=== PATIENT | female | born 1960 | race African-American/Black ===

== ENCOUNTER 2016-07-19 13:00 | Day surgery (SDC) | payer OTHER ==
[~2016-07-19] VITALS: Ht 175.3 cm; Wt 97.4 kg
[~2016-07-19 13:00] MED LIST: ASPI-676 PO; CARV3.1260 PO; FURO40TA4 PO; LISI2.5T59 PO; LORA-441 PO; ONDA4TAB8 PO; POLY17PO6 PO; SPIR25TA PO
[2016-07-19] MEDS ORDERED: IBUPROFEN (13:33)
[2016-07-19 13:35] VITALS: Ht 175.3 cm; Wt 97.4 kg
[2016-07-19 13:41] VITALS: BP 109/59; PULSE 70; RESP 19
[2016-07-19] MEDS ORDERED: PROPOFOL 20 ML ONE (15:00)
--- NOTE | 2016-07-19 16:09 | GILP ---
DATE OF PROCEDURE: NAME OF PROCEDURES: 1. Esophagogastroduodenoscopy and biopsy. 2. Colonoscopy and biopsy. SURGEON: Alva Tapia MD PREOPERATIVE DIAGNOSES: 1. Abdominal pain. 2. Screening colonoscopy. POSTOPERATIVE DIAGNOSES: 1. Hiatal hernia. 2. Gastroesophageal reflux disease. 3. Gastritis with erosions. 4. Small prepyloric gastric ulcer. 5. Gastric mucosal biopsies were taken for Helicobacter pylori test. 6. Colonoscopy all the way to the cecum. 7. Small sigmoid colon polyp was removed using the biopsy forceps. 8. Internal hemorrhoids. INDICATION FOR THE PROCEDURE: Ms. Isreal Jiménez is a 56-year-old female patient who had upper abdominal pain not responding to therapy. The patient also needed screening colonoscopy. The procedures and possible complications were well explained to the patient. She understood and co nsented to the procedure. DESCRIPTION OF PROCEDURE: Under the influence of anesthesia the gastroscope was carefully introduce d into the esophagus and under direct vision it was advanced to the stomach and through the pylorus, into the duodenal bulb and descending duodenum. FINDINGS: ESOPHAGUS: The patient had a hiatal hernia and gastroesophageal reflux disease. STOMACH: She had gastritis. She also had a superficial gastric ulcer in the prepyloric area. Ronald billie mucosal biopsies were taken for H. pylori test. DUODENUM: Normal. The colonoscope was carefully introduced in the rectum and under direct vision it was advanced all t he way to the cecum. FINDINGS: The patient had a small sigmoid colon polyp and it was removed using the biopsy forceps. She had internal hemorrhoids. She tolerated the procedures very well and there was no complication from the procedures. At the en d of the procedures she was awake with stable vital signs and she was discharged home to the care of her family. IMPRESSION: Please see postoperative diagnoses. PLAN: 1. Omeprazole 40 mg p.o. q.a.m. 2. Patient was advised to discontinue ibuprofen. 3. Await histopathology report. 4. Next screening colonoscopy in 10 years. Dictated By: ALVA ABERNATHY/CHRISTIANO Conf#: [id number] DID#: [id number]
[2016-07-19 16:15] VITALS: BP 112/62; PULSE 76; RESP 24
== END 2016-07-19 16:24 | disposition home or self-care (01) ==
LOC: GIL 13:00
PROVIDERS: ATTEND Internal Medicine Gastroenterology
DX: Z12.11 Encounter for screening for malignant neoplasm of colon (principal); K44.9 Diaphragmatic hernia without obstruction or gangrene; K21.9 Gastro-esophageal reflux disease without esophagitis; D12.5 Benign neoplasm of sigmoid colon; K29.60 Other gastritis without bleeding; K64.8 Other hemorrhoids; I10 Essential (primary) hypertension; I50.9 Heart failure, unspecified; E66.9 Obesity, unspecified; Z68.31 Body mass index [BMI] 31.0-31.9, adult; I25.10 Atherosclerotic heart disease of native coronary artery without angina pectoris
CPT/HCPCS: 43239; 45380; 87081; 88305; Z7610

== ENCOUNTER 2016-08-15 12:12 | Emergency (ER) | payer OTHER ==
[~2016-08-15] VITALS: Ht 175.3 cm; Wt 95.5 kg
[~2016-08-15 12:12] MED LIST changes: +IBUPROFEN
[2016-08-15 12:23] VITALS: Ht 175.3 cm; Wt 95.5 kg
[2016-08-15] MEDS ORDERED: FAMOTIDINE 20 MG TAB PO STA (12:48)
[2016-08-15] MEDS ORDERED: ONDANSETRON 4 MG INJ IV STA (12:48)
[2016-08-15] MEDS ORDERED: SOD CHLORIDE 0.9% 500 ML IV STA (12:48)
[2016-08-15] MEDS ORDERED: LORAZEPAM 2 MG INJ IV ONE (13:00)
[2016-08-15 13:16] LABS: ADD SCAN DIFF NO
[2016-08-15 13:18] LABS: BASOPHILS % 0.1 % (0.0-2.0); HEMATOCRIT 44.2 % (37.0-47.0); HEMOGLOBIN 14.2 g/dl (12.0-16.0); LYMPHOCYTES # 0.7 10^3/ul (0.8-2.9); LYMPHOCYTES % 6.4 % (15.0-51.0); MEAN CORPUSCULAR HEMOGLOBIN 28.4 pg (29.0-33.0); MEAN CORPUSCULAR HGB CONC 32.1 g/dl (32.0-37.0); MEAN CORPUSCULAR VOLUME 88.4 fl (82.0-101.0); MEAN PLATELET VOLUME 11.4 fl (7.4-10.4); MONOCYTE # 0.8 10^3/ul (0.3-0.9); MONOCYTES % 7.9 % (0.0-11.0); NEUTROPHILS % 85.2 % (39.0-77.0); PLATELET COUNT 248 10^3/UL (140-415); RED CELL DISTRIBUTION WIDTH 13.7 % (11.5-14.5); WHITE BLOOD COUNT 10.6 10^3/ul (4.8-10.8)
[2016-08-15 13:38] LABS: INR 1.11; PARTIAL THROMBOPLASTIN TIME 26.9 Sec (25.0-35.0); PROTIME 14.3 Sec (12.2-14.2); PT RATIO 1.1
[2016-08-15 13:39] LABS: ALBUMIN 5.5 g/dl (3.3-4.9)
[2016-08-15 13:40] LABS: POTASSIUM 4.3 mmol/L (3.5-5.1)
[2016-08-15 13:42] LABS: BILIRUBIN,INDIRECT 1.7 mg/dl (0-1.1); BILIRUBIN,TOTAL 1.7 mg/dl (0.2-1.3); CREATININE 1.12 mg/dl (0.44-1.00); TOTAL PROTEIN 9.6 g/dl (6.1-8.1)
[2016-08-15 13:43] LABS: ALBUMIN/GLOBULIN RATIO 1.34; CALCIUM 10.3 mg/dl (8.4-10.2)
[2016-08-15 13:52] LABS: TROPONIN-I 0.058 ng/ml (0.00-0.12)
[2016-08-15 14:00] VITALS: BP 112/70; PULSE 86; RESP 18
--- NOTE | 2016-08-15 14:24 | RADRPT ---
PROCEDURE: CT Abdomen and Pelvis without contrast. CLINICAL INDICATION: Abdominal and pelvic pain. TECHNIQUE: CT scan of the abdomen and pelvis without contrast was performed. Coronal and sagittal reformatted images were obtained from the axial source images. Images were reviewed on a [employer] PACS workstation. Total exam DLP is 1385.04 mGy-cm. CTDIvol is 22.36 mGy. One or more of the following dose reduction techniques were used: Automated exposure control, adjustment of the mA and/ or kV according to patient size, use of iterative reconstruction technique. COMPARISON: None. FINDINGS: The lung bases are normal. There is no pleural effusion or pericardial effusion. The heart is jose edly enlarged. There is a dual lead automatic internal cardiac defibrillator/pacemaker. The liver is normal in size and attenuation. There is no focal hepatic lesion. The gallbladder is surgically absent with clips noted in the gallbladder bed. The bile ducts are no rmal. The spleen is normal in size. There is no focal splenic lesion. Both adrenals are normal with no enlargement or mass. The pancreas is unremarkable with no mass or evidence of pancreatitis. There is no renal mass or hydronephrosis. There is no renal calculus or ureteral calculus. The abdominal aorta is not dilated. There is calcification in the aorta consistent with atheroscler osis. There is no retroperitoneal lymphadenopathy or mass. There is no pelvic lymphadenopathy or mass. The bladder and distal ureters are normal. The appendix is well seen and appears normal. The bowel and mesentery are normal. There is no free fluid or free gas. The osseous structures are unremarkable with no fracture or lytic lesion. IMPRESSION: 1. Marked cardiomegaly. 2. Dual lead automatic internal cardiac defibrillator/pacemaker. 3. Previous cholecystectomy. 4. Atherosclerosis. 5. Normal appendix. 6. Otherwise normal noncontrast CT scan of the abdomen and pelvis. RPTAT: QQ .Álvaro Obando MD, MD Date Time Electronically viewed and signed by .Álvaro Obando MD, on 08/15/2016 14:24 .R/
--- NOTE | 2016-08-15 14:34 | ERD ---
ER Documentation Chief Complaint Date/Time DATE: 08/15/16 TIME: 14:30 Chief Complaint NON-RADIATING CP X 12HRS AGO, +SOB & LETHARGY HPI This is a 36-year-old female presents to the emergency room for evaluation of abdominal cramping, and shortness of breath with nausea and vomiting. The patient states that she does have a history of anxiety and states that she was having an anxiety attack. She states that she ran out of her medication that she normally takes which is Ativan. She states that last night she took [place] wort to help her with anxiety however she realizes it was . She states about 20 minutes after ingesting [place] where she began to become nauseous and she had abdominal cramping. She vomited multiple times today for evaluation of abdominal cramping nausea and vomiting. Patient denies any chest pain at this time and she states that her shortness of breath only occurred when she was vomiting ROS All systems reviewed and are negative except as per history of present illness. Medications Home Meds Active Scripts Polyethylene Glycol* (Miralax*) 17 Gm Powd.pack, 17 GM PO DAILY, #10 Prov:KRISTIN YEN DO 03/17/16 Ondansetron Hcl* (Zofran*) 4 Mg Tablet, 4 MG PO Q8H Y for NAUSEA AND/OR VOMITING , #30 TAB Prov:BRYCE JOHNSON MD 01/31/16 Lorazepam* (Ativan*) 0.5 Mg Tablet, 0.5 MG PO Q8 for ANXIETY, #30 TAB Prov:DIDIER HERRERA 01/23/16 Furosemide* (Furosemide*) 40 Mg Tablet, 40 MG PO BID, #90 TAB 3 Refills Prov:DIDIER HERRERA 01/23/16 Carvedilol* (Carvedilol*) 3.125 Mg Tablet, 3.125 MG PO BID, #60 TAB 3 Refills Prov:DIDIER HERRERA 01/23/16 Spironolactone* (Aldactone*) 25 Mg Tablet, 12.5 MG PO BID for 30 Days, TAB Prov:GERARDO JOHN NP 12/20/15 Reported Medications Lisinopril* (Lisinopril*) 2.5 Mg Tablet, 2.5 MG PO BID, #60 TAB 10/6/16 Aspirin (Barrett Child) 81 Mg Chew, 81 MG PO DAILY 04/01/12 Discontinued Reported Medications [Ibuprofen] No Conflict Check 07/19/16 Allergies Allergies: Coded Allergies: No Known Allergy (Verified , 03/17/16) PMhx/Soc History of Surgery: Yes (AICD, ULBILICAL HERNIA REPAIR, CHOLECYSTECTOMY,) Anesthesia Reaction: No Hx Neurological Disorder: Yes (SCIATIC NERVE PAIN) Hx Respiratory Disorders: No Hx Psychiatric Problems: No Hx Miscellaneous Medical Probl: No Hx Alcohol Use: No Hx Substance Use: No Hx Tobacco Use: No Smoking Status: Never smoker Physical Exam Vitals Vital Signs Date Time Temp Pulse Resp B/P Pulse Ox O2 Delivery O2 Flow Rate FiO2 08/15/16 14:00 86 18 112/70 98 Nasal Cannula 2.0 08/15/16 12:23 97.0 72 25 136/66 100 Physical Exam INITIAL VITAL SIGNS: Reviewed by me GENERAL: The patient is well developed and appropriate for usual state of health in no apparent distress HEENT: Pupils equal, round, and reactive to light. EOMI. There is no scleral icterus. NECK: C-spine is soft and supple, there is no meningismus. There is no cervical lymphadenopathy. LUNGS: Clear to auscultation bilaterally. There are no rales, wheezes or rhonchi. HEART: Regular rate and rhythm, no murmurs, clicks, rubs or gallops. ABDOMEN: Soft, non-tender, non-distended. There are bowel sounds in all four quadrants. No rebound or guarding. EXTREMITIES: There is no peripheral cyanosis or edema. No focal swelling or erythema. NEUROLOGICAL: The patient moves all four extremities with 5/5 strength. Cranial nerves II - XII are intact. Normal gait. Alert and oriented SKIN: There is no apparent rash or petechiae. HEME/LYMPHATIC: There is no evidence of excessive bruising or lymphedema. PSYCHIATRIC: The patient does appear to be mildly anxious Result Diagram: 08/15/16 1255 08/15/16 1255 Results 24 hrs Laboratory Tests Test 08/15/16 12:55 White Blood Count 10.610^3/ul Red Blood Count 5.0010^6/ul Hemoglobin 14.2g/dl Hematocrit 44.2% Mean Corpuscular Volume 88.4fl Mean Corpuscular Hemoglobin 28.4pg Mean Corpuscular Hemoglobin Concent 32.1g/dl Red Cell Distribution Width 13.7% Platelet Count 09482^3/UL Mean Platelet Volume 11.4fl Neutrophils % 85.2% Lymphocytes % 6.4% Monocytes % 7.9% Eosinophils % 0.0% Basophils % 0.1% Nucleated Red Blood Cells % 0.0/100WBC Neutrophils # 9.010^3/ul Lymphocytes # 0.710^3/ul Monocytes # 0.810^3/ul Eosinophils # 0.010^3/ul Basophils # 0.010^3/ul Nucleated Red Blood Cells # 0.010^3/ul Prothrombin Time 14.3Sec Prothrombin Time Ratio 1.1 INR International Normalized Ratio 1.11 Activated Partial Thromboplast Time 26.9Sec Sodium Level 137mmol/L Potassium Level 4.3mmol/L Chloride Level 90mmol/L Carbon Dioxide Level 26mmol/L Anion Gap 25 Blood Urea Nitrogen 32mg/dl Creatinine 1.12mg/dl Glucose Level 146mg/dl Calcium Level 10.3mg/dl Total Bilirubin 1.7mg/dl Direct Bilirubin 0.00mg/dl Indirect Bilirubin 1.7mg/dl Aspartate Amino Transf (AST/SGOT) 42IU/L Alanine Aminotransferase (ALT/SGPT) 36IU/L Alkaline Phosphatase 111IU/L Troponin I 0.058ng/ml Total Protein 9.6g/dl Albumin 5.5g/dl Globulin 4.10g/dl Albumin/Globulin Ratio 1.34 Lipase 74U/L Current Medications Medications (Trade) Dose Ordered Sig/Yash Route PRN Reason Start Time Stop Time Status Last Admin Dose Admin Sodium Chloride (NS) 500 ml @ 500 mls/hr Q1H STAT IV 08/15/16 12:48 08/15/16 13:47 DC 08/15/16 12:53 Ondansetron HCl (Zofran Inj) 4 mg ONCE STAT IV 08/15/16 12:48 08/15/16 12:50 DC 08/15/16 12:53 Famotidine (Pepcid) 20 mg ONCE STAT PO 08/15/16 12:48 08/15/16 12:50 DC 08/15/16 12:53 Lorazepam (Ativan) 1 mg ONCE ONCE IV 08/15/16 13:00 08/15/16 13:02 DC 5/17/17 12:53 Procedures/MDM EKG: Rate/Rhythm: Paced rhythm QRS, ST, T-waves: [No changes consistent w/ acute ischemia] Impression: Paced rhythm CT abdomen pelvis without: 1. Marked cardiomegaly. 2. Dual lead automatic internal cardiac defibrillator/pacemaker. 3. Previous cholecystectomy. 4. Atherosclerosis. 5. Normal appendix. 6. Otherwise normal noncontrast CT scan of the abdomen and pelvis. This 56-year-old female presents to the emergency room for evaluation of abdominal cramping, nausea and vomiting after taking [place] wort last night. The patient did appear to be anxious on my examination. I did obtain lab work including a CT of abdomen and pelvis as this patient has had multiple previous abdominal surgeries. CT of the abdomen and pelvis does not reveal any obstruction. The patient was given 1 mg of Ativan in the emergency room along with 500 cc of normal saline. Lab work reveals minor dehydration with acute kidney injury. Upon my reevaluation this patient she is sleeping comfortably. She states she is in no acute distress, states that her symptoms have completely resolved. I feel that this patient could have had indigestion secondary to [place] wort versus anxiety. This patient states that she is comfortable going home at this time. She is accompanied by her son who states that he is comfortable taking her home. I advised him to return immediately to the emergency room if this patient were to develop any chest pain or shortness of breath or worsening abdominal cramping or vomiting and they both verbalized understanding. Departure Diagnosis: Primary Impression: Abdominal pain Additional Impressions: Nausea and vomiting Acute kidney injury Prerenal azotemia Anxiety Condition: MARGARETTE Landa DO August 15, 2016 14:34
[2016-08-15] MEDS ORDERED: LORA-441 PO (14:35)
[2016-08-15] MEDS ORDERED: ONDA4TAB8 PO (14:35)
== END 2016-08-15 14:57 | disposition home or self-care (01) ==
LOC: E/R 12:12
DX: R10.9 Unspecified abdominal pain (principal); R40.2252 Coma scale, best verbal response, oriented, at arrival to emergency department; R11.2 Nausea with vomiting, unspecified; N17.9 Acute kidney failure, unspecified; R39.2 Extrarenal uremia; F41.9 Anxiety disorder, unspecified; R40.2142 Coma scale, eyes open, spontaneous, at arrival to emergency department; R40.2362 Coma scale, best motor response, obeys commands, at arrival to emergency department; Z79.82 Long term (current) use of aspirin
CPT/HCPCS: 36415; 74176; 80053; 83690; 84484; 85025; 85610; 85730; 93005; 96374; 96375; J2060; J2405; J7040; Z7502; Z7610

== ENCOUNTER 2016-08-20 15:42 | Emergency (ER) | payer OTHER ==
[~2016-08-20] VITALS: Wt 71.0 kg
[~2016-08-20 15:42] MED LIST changes: -IBUPROFEN
[2016-08-20] MEDS ORDERED: ASPIRIN 325 MG TAB PO STA (18:14)
[2016-08-20] MEDS ORDERED: ONDANSETRON 4 MG INJ IV STA (18:14)
[2016-08-20 18:27] LABS: ADD SCAN DIFF NO
[2016-08-20 18:29] LABS: BASOPHILS % 0.2 % (0.0-2.0); EOSINOPHILS % 0.3 % (0.0-7.0); HEMATOCRIT 44.2 % (37.0-47.0); HEMOGLOBIN 14.2 g/dl (12.0-16.0); LYMPHOCYTES # 1.1 10^3/ul (0.8-2.9); LYMPHOCYTES % 11.4 % (15.0-51.0); MEAN CORPUSCULAR HEMOGLOBIN 28.9 pg (29.0-33.0); MEAN CORPUSCULAR HGB CONC 32.1 g/dl (32.0-37.0); MEAN CORPUSCULAR VOLUME 89.8 fl (82.0-101.0); MEAN PLATELET VOLUME 10.5 fl (7.4-10.4); MONOCYTES % 11.1 % (0.0-11.0); NEUTROPHIL # 7.1 10^3/ul (1.6-7.5); NEUTROPHILS % 76.7 % (39.0-77.0); PLATELET COUNT 254 10^3/UL (140-415); RED BLOOD COUNT 4.92 10^6/ul (4.20-5.40); RED CELL DISTRIBUTION WIDTH 13.8 % (11.5-14.5); WHITE BLOOD COUNT 9.3 10^3/ul (4.8-10.8)
[2016-08-20 18:43] LABS: INR 1.14; PROTIME 14.6 Sec (12.2-14.2); PT RATIO 1.1
[2016-08-20 18:44] LABS: PARTIAL THROMBOPLASTIN TIME 24.8 Sec (25.0-35.0)
[2016-08-20] MEDS ORDERED: ONDA4TAB95 PO (18:57)
[2016-08-20] MEDS ORDERED: LORAZEPAM 2 MG INJ IV ONE ×2 (19:00→23:30)
[2016-08-20] MEDS ORDERED: SPIR25TA PO (19:00)
[2016-08-20 19:41] LABS: ALBUMIN 4.6 g/dl (3.3-4.9); POTASSIUM 4.8 mmol/L (3.5-5.1)
[2016-08-20 19:43] LABS: BILIRUBIN,INDIRECT 0.7 mg/dl (0-1.1); BILIRUBIN,TOTAL 0.7 mg/dl (0.2-1.3); CREATININE 1.14 mg/dl (0.44-1.00)
[2016-08-20 19:44] LABS: ALBUMIN/GLOBULIN RATIO 1.31; CALCIUM 9.5 mg/dl (8.4-10.2); TOTAL PROTEIN 8.1 g/dl (6.1-8.1)
--- NOTE | 2016-08-20 19:47 | RADRPT ---
PROCEDURE: XR Chest. CLINICAL INDICATION: Chest pain. TECHNIQUE: Portable AP semi - erect view of the chest was obtained. COMPARISON: The 03/17/2016 FINDINGS: The cardiomediastinal silhouette is enlarged, a left subclavian approach AICD is again noted. The l ungs are clear. There is no evidence for pleural effusion, pneumothorax or pulmonary vascular conge stion. The osseous structures are intact with no evidence for acute abnormality. RPTAT:HJJR IMPRESSION: Stable cardiac silhouette enlargement and AICD without evidence for acute intrathoracic pathology. Physician Aleksandra Date Time Electronically viewed and signed by Physician Aleksandra on 08/20/2016 19:47 /
[2016-08-20 19:57] LABS: TROPONIN-I 0.029 ng/ml (0.00-0.12)
[2016-08-20] MEDS: FUROSEMIDE 40 MG INJ IV ONE ×2 (22:44→23:07)
[2016-08-20 22:50] LABS: ADD UMIC NO; URINE BILIRUBIN (Dip) NEGATIVE (NEGATIVE); URINE BLOOD (Dip) NEGATIVE (NEGATIVE); URINE COLOR LT. YELLOW (YELLOW); URINE GLUCOSE (Dip) NEGATIVE (NEGATIVE); URINE KETONES (Dip) NEGATIVE (NEGATIVE); URINE LEUKOCYTE ESTERASE (Dip) NEGATIVE (NEGATIVE); URINE NITRITE (Dip) NEGATIVE (NEGATIVE); URINE TOTAL PROTEIN (Dip) NEGATIVE (NEGATIVE); URINE UROBILINOGEN (Dip) 2.0 E.U./dL (0.1-1.0)
[2016-08-20 22:58] VITALS: BP 101/59; PULSE 74; RESP 16; TEMP 98.7
[2016-08-20] MEDS ORDERED: RANI150T9 PO (23:26)
[2016-08-20] MEDS ORDERED: METO10TA92 PO (23:26)
--- NOTE | 2016-08-20 23:40 | ERD ---
ER Documentation Chief Complaint Date/Time DATE: 08/20/16 TIME: 23:33 Chief Complaint N/V WITH SOB AND CHEST PAIN HPI 56-year-old female with a history of congestive heart failure presents with epigastric abdominal pain and vomiting and some shortness of breath. She also states that her legs have been swelling. She took her home Lasix did begin to urinate. States that she has a appointment with her doctor tomorrow for adjustment of medications. Denies any specific chest pain. States that she gets this vomiting from time to time and what works for her is Ativan. ROS All systems reviewed and are negative except as per history of present illness. Medications Home Meds Active Scripts Metoclopramide* (Reglan*) 10 Mg Tablet, 10 MG PO Q6 Y for NAUSEA AND/OR VOMITING , #10 TAB Prov:KT GUERRERO DO 08/20/16 Ranitidine Hcl* (Zantac*) 150 Mg Tablet, 150 MG PO BID Y for EPIGASTRIC PAIN, # 30 TAB Prov:KT GUERRERO DO 08/20/16 Furosemide* (Furosemide*) 40 Mg Tablet, 40 MG PO BID, #90 TAB 3 Refills Prov:DIDIER HERRERA 01/23/16 Carvedilol* (Carvedilol*) 3.125 Mg Tablet, 3.125 MG PO BID, #60 TAB 3 Refills Prov:DIDIER HERERRA 01/23/16 Reported Medications Spironolactone* (Aldactone*) 25 Mg Tablet, 25 MG PO BID, #60 TAB 08/20/16 Ondansetron Hcl* (Ondansetron Hcl*) 4 Mg Tablet, 12 MG PO BID Y for NAUSEA AND OR VOMITING, TAB 08/20/16 Lisinopril* (Lisinopril*) 2.5 Mg Tablet, 2.5 MG PO BID, #60 TAB 01/05/16 Aspirin (Barrett Child) 81 Mg Chew, 81 MG PO DAILY 04/01/12 Discontinued Reported Medications [Ibuprofen] No Conflict Check 07/19/16 Discontinued Scripts Ondansetron Hcl* (Zofran*) 4 Mg Tablet, 4 MG PO Q8H Y for NAUSEA AND/OR VOMITING , #12 TAB Prov:MARGARETTE HOOKS DO 08/15/16 Lorazepam* (Ativan*) 0.5 Mg Tablet, 0.5 MG PO Q8H Y for ANXIETY, #6 TAB Prov:MARGARETTE HOOKS DO 08/15/16 Polyethylene Glycol* (Miralax*) 17 Gm Powd.pack, 17 GM PO DAILY, #10 Prov:KRISTIN YEN [facility] 03/17/16 Ondansetron Hcl* (Zofran*) 4 Mg Tablet, 4 MG PO Q8H Y for NAUSEA AND/OR VOMITING , #30 TAB Prov:BRYCE JOHNSON MD 01/31/16 Lorazepam* (Ativan*) 0.5 Mg Tablet, 0.5 MG PO Q8 for ANXIETY, #30 TAB Prov:DIDIER HERRERA 01/23/16 Spironolactone* (Aldactone*) 25 Mg Tablet, 12.5 MG PO BID for 30 Days, TAB Prov:GERARDO JOHN NP 12/20/15 Allergies Allergies: Coded Allergies: No Known Allergy (Verified , 08/20/16) PMhx/Soc History of Surgery: Yes (AICD, ULBILICAL HERNIA REPAIR, CHOLECYSTECTOMY,) Anesthesia Reaction: No Hx Neurological Disorder: Yes (SCIATIC NERVE PAIN) Hx Respiratory Disorders: No Hx Psychiatric Problems: No Hx Miscellaneous Medical Probl: No Hx Alcohol Use: No Hx Substance Use: No Hx Tobacco Use: No Smoking Status: Never smoker Physical Exam Vitals Vital Signs Date Time Temp Pulse Resp B/P Pulse Ox O2 Delivery O2 Flow Rate FiO2 08/20/16 22:58 98.7 74 16 101/59 100 Room Air 08/20/16 22:00 98.4 81 16 84/58 100 Room Air 08/20/16 18:18 Nasal Cannula 2 08/20/16 18:17 72 18 121/70 100 Room Air 08/20/16 15:45 98.0 66 22 91/58 98 Physical Exam Const: [] No distress Head: Atraumatic Eyes: Normal Conjunctiva ENT: Normal External Ears, Nose and Mouth. Neck: Full range of motion..~ No meningismus. Resp: Clear to auscultation bilaterally, no rales or respiratory distress Cardio: Regular rate and rhythm, no murmurs Abd: Soft, non tender, non distended. Normal bowel sounds Skin: No petechiae or rashes Back: No midline or flank tenderness Ext: No cyanosis, or edema, distal pulses intact bilateral feet and wrists Neur: Awake and alert and oriented 3, no focal deficits Psych: Normal Mood and Affect Result Diagram: 08/20/16181908/20/161819 Results 24 hrs Laboratory Tests Test 08/20/16 18:20 08/20/16 22:36 White Blood Count 9.310^3/ul Red Blood Count 4.9210^6/ul Hemoglobin 14.2g/dl Hematocrit 44.2% Mean Corpuscular Volume 89.8fl Mean Corpuscular Hemoglobin 28.9pg Mean Corpuscular Hemoglobin Concent 32.1g/dl Red Cell Distribution Width 13.8% Platelet Count 53634^3/UL Mean Platelet Volume 10.5fl Neutrophils % 76.7% Lymphocytes % 11.4% Monocytes % 11.1% Eosinophils % 0.3% Basophils % 0.2% Nucleated Red Blood Cells % 0.0/100WBC Neutrophils # 7.110^3/ul Lymphocytes # 1.110^3/ul Monocytes # 1.010^3/ul Eosinophils # 0.010^3/ul Basophils # 0.010^3/ul Nucleated Red Blood Cells # 0.010^3/ul Prothrombin Time 14.6Sec Prothrombin Time Ratio 1.1 INR International Normalized Ratio 1.14 Activated Partial Thromboplast Time 24.8Sec Sodium Level 134mmol/L Potassium Level 4.8mmol/L Chloride Level 90mmol/L Carbon Dioxide Level 31mmol/L Anion Gap 18 Blood Urea Nitrogen 16mg/dl Creatinine 1.14mg/dl Glucose Level 106mg/dl Calcium Level 9.5mg/dl Total Bilirubin 0.7mg/dl Direct Bilirubin 0.00mg/dl Indirect Bilirubin 0.7mg/dl Aspartate Amino Transf (AST/SGOT) 56IU/L Alanine Aminotransferase (ALT/SGPT) 46IU/L Alkaline Phosphatase 91IU/L Troponin I 0.029ng/ml Total Protein 8.1g/dl Albumin 4.6g/dl Globulin 3.50g/dl Albumin/Globulin Ratio 1.31 Lipase 123U/L Urine Color LT. YELLOW Urine Clarity CLEAR Urine pH 7.5 Urine Specific [place] 1.010 Urine Ketones NEGATIVE Urine Nitrite NEGATIVE Urine Bilirubin NEGATIVE Urine Urobilinogen 2.0 E.U./dL Urine Leukocyte Esterase NEGATIVE Urine Hemoglobin NEGATIVE Urine Glucose NEGATIVE% Urine Total Protein NEGATIVE Current Medications Medications (Trade) Dose Ordered Sig/Yash Route PRN Reason Start Time Stop Time Status Last Admin Dose Admin Aspirin (Aspirin) 325 mg ONCE STAT PO 08/20/16 18:14 08/20/16 18:31 DC 08/20/16 18:37 Ondansetron HCl (Zofran Inj) 4 mg ONCE STAT IV 08/20/16 18:14 08/20/16 18:31 DC 08/20/16 18:37 Lorazepam (Ativan) 1 mg ONCE ONCE IV 08/20/16 19:00 08/20/16 19:01 DC 08/20/16 18:55 Furosemide (Lasix) 40 mg ONCE ONCE IV 08/20/16 22:30 08/20/16 22:31 DC 08/20/16 23:07 Lorazepam (Ativan) 0.5 mg ONCE ONCE IV 08/20/16 23:30 08/20/16 23:31 DC Procedures/MDM 56-year-old female with epigastric pain and vomiting. Because her history is concerning for possible coronary events performed a cardiac workup. She had epigastric pain for greater than 5 hours and has a negative troponin. After she was given the Ativan and Zofran her nausea resolved and she felt much better. She had a single blood pressure reading that was low but this was not repeated on further exams. She has no lightheadedness. Her request she was given 40 mg of Lasix. I did not appreciate any lower extremity edema the patient believes that she has some. Going to discharge her with Zantac and Reglan, and she does not think Zofran works for her. She has an appointment with her doctor tomorrow morning. I am putting all of her laboratories. Return precautions EKG interpretation: Paced rhythm rate of 70, no further analysis is possible. 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 Departure Diagnosis: Primary Impression: Epigastric abdominal pain Additional Impressions: Peripheral edema Vomiting Condition: Stable Patient Instructions: Peripheral Edema, Bilateral, Vomiting (6Y-Adult), Epigastric Pain (Uncertain Cause) Additional Instructions: Call your primary care doctor TOMORROW for an appointment during the next 1-2 days.See the doctor sooner or return here if your condition worsens before your appointment time. KT GUERRERO DO August 20, 2016 23:40
== END 2016-08-20 23:52 | disposition home or self-care (01) ==
LOC: E/R 15:42
DX: R10.13 Epigastric pain (principal); R60.0 Localized edema; R11.10 Vomiting, unspecified; I50.9 Heart failure, unspecified; I10 Essential (primary) hypertension; Z79.82 Long term (current) use of aspirin
CPT/HCPCS: 36415; 71010; 80053; 81003; 83690; 84484; 85025; 85610; 85730; 93005; 96374; 96375; 96376; J1940; J2060; J2405; Z7502; Z7610

== ENCOUNTER 2016-08-21 11:52 | Inpatient (IN) | payer OTHER ==
[~2016-08-21] VITALS: Ht 175.3 cm; Wt 96.0 kg
[~2016-08-21 11:52] MED LIST changes: -LORA-441 PO; +METO10TA92 PO; -ONDA4TAB8 PO; +ONDA4TAB95 PO; -POLY17PO6 PO; +RANI150T9 PO
[2016-08-21] MEDS ORDERED: ONDANSETRON 4 MG INJ IV STA (11:58)
[2016-08-21] MEDS ORDERED: METHYLPREDNISOLONE 125 MG INJ IV STA (11:58)
[2016-08-21] MEDS ORDERED: IPRATROPIUM (NEB) 0.5 MG/2.5 ML AMP NEB STA (11:58)
[2016-08-21] MEDS ORDERED: ALBUTEROL 0.083% (NEB) 2.5 MG/3 ML AMP NEB STA (11:58)
[2016-08-21] MEDS ORDERED: morphine 4 MG/ML VIAL IV STA (12:29)
[2016-08-21 12:35] LABS: ADD SCAN DIFF NO
[2016-08-21 12:39] LABS: BASOPHILS % 0.4 % (0.0-2.0); EOSINOPHILS # 0.1 10^3/ul (0.0-0.5); EOSINOPHILS % 0.6 % (0.0-7.0); HEMATOCRIT 44.7 % (37.0-47.0); LYMPHOCYTES # 1.1 10^3/ul (0.8-2.9); LYMPHOCYTES % 11.7 % (15.0-51.0); MEAN CORPUSCULAR HEMOGLOBIN 28.1 pg (29.0-33.0); MEAN CORPUSCULAR HGB CONC 31.3 g/dl (32.0-37.0); MEAN CORPUSCULAR VOLUME 89.8 fl (82.0-101.0); MEAN PLATELET VOLUME 10.5 fl (7.4-10.4); NEUTROPHIL # 7.4 10^3/ul (1.6-7.5); NEUTROPHILS % 77.1 % (39.0-77.0); PLATELET COUNT 274 10^3/UL (140-415); RED BLOOD COUNT 4.98 10^6/ul (4.20-5.40); RED CELL DISTRIBUTION WIDTH 14.1 % (11.5-14.5); WHITE BLOOD COUNT 9.6 10^3/ul (4.8-10.8)
[2016-08-21 12:56] LABS: INR 1.16; PROTIME 14.8 Sec (12.2-14.2); PT RATIO 1.2
[2016-08-21 12:57] LABS: PARTIAL THROMBOPLASTIN TIME 25.8 Sec (25.0-35.0)
[2016-08-21 13:01] LABS: ALBUMIN 4.7 g/dl (3.3-4.9)
--- NOTE | 2016-08-21 13:01 | RADRPT ---
PROCEDURE: XR Chest. CLINICAL INDICATION: Possible Sepsis TECHNIQUE: Single frontal view of the chest was obtained COMPARISON: 08/20/2016 FINDINGS: The left subclavian AICD is again seen. The heart remains enlarged. Low lung volumes compress the lung parenchyma and cause vascular crowding. No focal consolidation i s identified. There is no pleural effusion or pneumothorax. The bones and soft tissue show no acute change. IMPRESSION: 1. Stable cardiomegaly. 2. Low lung volumes compresses the lung parenchyma and cause vascular crowding. No focal consolida tion is identified. RPTAT:AAJJ Physician Yann Date Time Electronically viewed and signed by Yossi Auguste Physician on 08/21/2016 13:00 /
[2016-08-21 13:03] LABS: CREATININE 1.49 mg/dl (0.44-1.00)
[2016-08-21 13:04] LABS: ALBUMIN/GLOBULIN RATIO 1.38; BILIRUBIN,INDIRECT 0.9 mg/dl (0-1.1); BILIRUBIN,TOTAL 0.9 mg/dl (0.2-1.3); CALCIUM 9.6 mg/dl (8.4-10.2); TOTAL PROTEIN 8.1 g/dl (6.1-8.1)
[2016-08-21 13:11] LABS: TROPONIN-I 0.019 ng/ml (0.00-0.12)
--- NOTE | 2016-08-21 13:50 | ERA ---
ER Documentation Chief Complaint Date/Time DATE: 08/21/16 TIME: 13:47 Chief Complaint SOB WITH CHEST PAIN FOR FEW DAYS. SENT BY CARDIO FOR EVAL. MOD SOB HPI This is a 56-year-old female who presents to the emergency room for evaluation of chest pain, shortness of breath, nausea and vomiting for the past 2 days. This patient was seen by her dropper tank storage in office today, Dr. Linda who states that this patient did not look well and he sent the patient to the emergency room. This patient has been seen twice in the past week for similar symptoms and has been discharged after medication. Today she states that her shortness of breath is worse. She does say she has a history of congestive heart failure, does state that she is having a chest pain in the center of her chest with no radiation. She denies any aggravating or relieving factors for her pain but does state that Ativan helps with her nausea ROS All systems reviewed and are negative except as per history of present illness. Medications Home Meds Active Scripts Metoclopramide* (Reglan*) 10 Mg Tablet, 10 MG PO Q6 Y for NAUSEA AND/OR VOMITING , #10 TAB Prov:KT GUERRERO DO 08/20/16 Ranitidine Hcl* (Zantac*) 150 Mg Tablet, 150 MG PO BID Y for EPIGASTRIC PAIN, # 30 TAB Prov:KT GUERRERO DO 08/20/16 Furosemide* (Furosemide*) 40 Mg Tablet, 40 MG PO BID, #90 TAB 3 Refills Prov:DIDIER HERRERA 01/23/16 Carvedilol* (Carvedilol*) 3.125 Mg Tablet, 3.125 MG PO BID, #60 TAB 3 Refills Prov:DIDIER HERRERA 01/23/16 Reported Medications Spironolactone* (Aldactone*) 25 Mg Tablet, 25 MG PO BID, #60 TAB 08/20/16 Ondansetron Hcl* (Ondansetron Hcl*) 4 Mg Tablet, 12 MG PO BID Y for NAUSEA AND OR VOMITING, TAB 08/20/16 Lisinopril* (Lisinopril*) 2.5 Mg Tablet, 2.5 MG PO BID, #60 TAB 01/05/16 Aspirin (Barrett Child) 81 Mg Chew, 81 MG PO DAILY 04/01/12 Discontinued Reported Medications [Ibuprofen] No Conflict Check 07/19/16 Discontinued Scripts Ondansetron Hcl* (Zofran*) 4 Mg Tablet, 4 MG PO Q8H Y for NAUSEA AND/OR VOMITING , #12 TAB Prov:MARGARETTE HOOKS DO 08/15/16 Lorazepam* (Ativan*) 0.5 Mg Tablet, 0.5 MG PO Q8H Y for ANXIETY, #6 TAB Prov:MARGARETTE HOOKS DO 08/15/16 Polyethylene Glycol* (Miralax*) 17 Gm Powd.pack, 17 GM PO DAILY, #10 Prov:KRISTIN YEN DO 03/17/16 Ondansetron Hcl* (Zofran*) 4 Mg Tablet, 4 MG PO Q8H Y for NAUSEA AND/OR VOMITING , #30 TAB Prov:BRYCE JOHNOSN MD 01/31/16 Lorazepam* (Ativan*) 0.5 Mg Tablet, 0.5 MG PO Q8 for ANXIETY, #30 TAB Prov:DIDIER HERRERA 01/23/16 Spironolactone* (Aldactone*) 25 Mg Tablet, 12.5 MG PO BID for 30 Days, TAB Prov:GERARDO JOHN NP 12/20/15 Allergies Allergies: Coded Allergies: No Known Allergy (Verified , 08/20/16) PMhx/Soc History of Surgery: Yes (AICD, ULBILICAL HERNIA REPAIR, CHOLECYSTECTOMY,) Anesthesia Reaction: No Hx Neurological Disorder: Yes (SCIATIC NERVE PAIN) Hx Respiratory Disorders: No Hx Psychiatric Problems: No Hx Miscellaneous Medical Probl: No Hx Alcohol Use: No Hx Substance Use: No Hx Tobacco Use: No Smoking Status: Never smoker Physical Exam Vitals Vital Signs Date Time Temp Pulse Resp B/P Pulse Ox O2 Delivery O2 Flow Rate FiO2 08/21/16 12:19 83 22 99 21 08/21/16 12:14 98.8 81 22 127/89 100 Physical Exam INITIAL VITAL SIGNS: Reviewed by me GENERAL: The patient is well developed, mild respiratory distress HEENT: Pupils equal, round, and reactive to light. EOMI. There is no scleral icterus. NECK: C-spine is soft and supple, there is no meningismus. There is no cervical lymphadenopathy. LUNGS: Diffuse wheezing in upper and lower extremity's bilaterally HEART: Regular rate and rhythm, no murmurs, clicks, rubs or gallops. ABDOMEN: Epigastric tenderness to palpation, otherwise soft, non-tender, non- distended. There are bowel sounds in all four quadrants. No rebound or guarding. EXTREMITIES: 1+ pitting edema in the bilateral lower extremity NEUROLOGICAL: The patient moves all four extremities with 5/5 strength. Cranial nerves II - XII are intact. Normal gait. Alert and oriented SKIN: There is no apparent rash or petechiae. HEME/LYMPHATIC: There is no evidence of excessive bruising or lymphedema. PSYCHIATRIC: The patient does not appear anxious or depressed. Result Diagram: 08/21/16 1230 08/21/16 1230 Results 24 hrs Laboratory Tests Test 08/21/16 12:30 White Blood Count 9.610^3/ul Red Blood Count 4.9810^6/ul Hemoglobin 14.0g/dl Hematocrit 44.7% Mean Corpuscular Volume 89.8fl Mean Corpuscular Hemoglobin 28.1pg Mean Corpuscular Hemoglobin Concent 31.3g/dl Red Cell Distribution Width 14.1% Platelet Count 91394^3/UL Mean Platelet Volume 10.5fl Neutrophils % 77.1% Lymphocytes % 11.7% Monocytes % 10.0% Eosinophils % 0.6% Basophils % 0.4% Nucleated Red Blood Cells % 0.0/100WBC Neutrophils # 7.410^3/ul Lymphocytes # 1.110^3/ul Monocytes # 1.010^3/ul Eosinophils # 0.110^3/ul Basophils # 0.010^3/ul Nucleated Red Blood Cells # 0.010^3/ul Prothrombin Time 14.8Sec Prothrombin Time Ratio 1.2 INR International Normalized Ratio 1.16 Activated Partial Thromboplast Time 25.8Sec Sodium Level 134mmol/L Potassium Level 4.0mmol/L Chloride Level 90mmol/L Carbon Dioxide Level 31mmol/L Anion Gap 17 Blood Urea Nitrogen 16mg/dl Creatinine 1.49mg/dl Glucose Level 125mg/dl Lactic Acid Level 1.7mmol/L Calcium Level 9.6mg/dl Total Bilirubin 0.9mg/dl Direct Bilirubin 0.00mg/dl Indirect Bilirubin 0.9mg/dl Aspartate Amino Transf (AST/SGOT) 37IU/L Alanine Aminotransferase (ALT/SGPT) 49IU/L Alkaline Phosphatase 107IU/L Troponin I 0.019ng/ml Total Protein 8.1g/dl Albumin 4.7g/dl Globulin 3.40g/dl Albumin/Globulin Ratio 1.38 Current Medications Medications (Trade) Dose Ordered Sig/Yash Route PRN Reason Start Time Stop Time Status Last Admin Dose Admin Ondansetron HCl (Zofran Inj) 4 mg ONCE STAT IV 08/21/16 11:58 08/21/16 12:02 DC 08/21/16 12:15 Albuterol (Proventil 0.083% (Neb)) 5 mg ONCE STAT NEB 08/21/16 11:58 08/21/16 12:02 DC 08/21/16 12:19 Ipratropium [place] (Atrovent 0.02% (Neb)) 0.5 mg ONCE STAT NEB 08/21/16 11:58 08/21/16 12:02 DC 08/21/16 12:19 Methylprednisolone Sodium Succinate (Solu-Medrol) 125 mg ONCE STAT IV 08/21/16 11:58 08/21/16 12:02 DC 08/21/16 12:15 Morphine Sulfate (morphine) 4 mg ONCE STAT IV 08/21/16 12:29 08/21/16 12:31 DC 08/21/16 12:34 Procedures/MDM EKG: Rate/Rhythm: Paced rhythm QRS, ST, T-waves: [No changes consistent w/ acute ischemia] Impression: Paced rhythm Chest X-ray 1V Interpreted by me: Soft Tissue: No acute abnormalities Bones: No acute abnormalities Mediastinum/Cardiac Silhouette/Lungs: Cardiomegaly This 36-year-old female presents to the emergency room for evaluation of multiple symptoms including chest pain, nausea, vomiting and shortness of breath. She did have extreme wheezing on my examination. She was given a breathing treatment. She was also given Zofran and morphine for pain. Upon my reevaluation she does state that she is feeling better. This patient has been seen twice in the past week for the same and at this point is patient will be placed in for admission at this time for cardiac evaluation and for electrophysiology consultation with Dr. linda. This patient is hemodynamically stable at this time, she is not hypoxic and will be placed on the telemetry floor under the care of Dr. [place] Diagnosis: Primary Impression: Chest pain Additional Impressions: Chronic renal insufficiency CHF (congestive heart failure) Nausea & vomiting Condition: Stable MARGARETTE HOOKS DO August 21, 2016 13:50
[2016-08-21 14:00] LABS: ADD UMIC NO; URINE BILIRUBIN (Dip) NEGATIVE (NEGATIVE); URINE BLOOD (Dip) NEGATIVE (NEGATIVE); URINE COLOR YELLOW (YELLOW); URINE GLUCOSE (Dip) NEGATIVE (NEGATIVE); URINE KETONES (Dip) NEGATIVE (NEGATIVE); URINE LEUKOCYTE ESTERASE (Dip) NEGATIVE (NEGATIVE); URINE NITRITE (Dip) NEGATIVE (NEGATIVE); URINE TOTAL PROTEIN (Dip) NEGATIVE (NEGATIVE); URINE UROBILINOGEN (Dip) 1.0 E.U./dL (0.1-1.0)
[2016-08-21] MEDS ORDERED: ACETAMINOPHEN 325 MG TAB PO PRN ×2 (14:00→16:00)
[2016-08-21] MEDS ORDERED: ONDANSETRON 4 MG INJ IV PRN ×2 (14:00→16:00)
[2016-08-21] MEDS ORDERED: LORAZEPAM 2 MG INJ IV ONE (14:30)
[2016-08-21] MEDS ORDERED: FAMOTIDINE 20 MG INJ IV ONE (14:30)
[2016-08-21] MEDS ORDERED: hydrALAzine 20 MG INJ IV PRN (16:00)
[2016-08-21] MEDS ORDERED: NA PHOSPHATE/BIPHOS 133 ML ENEMA PR PRN (16:00)
[2016-08-21] MEDS ORDERED: NITROGLYCERIN (SL) 0.4 MG TAB SL PRN (16:00)
[2016-08-21] MEDS ORDERED: DOCUSATE SODIUM 100 MG CAP PO PRN (16:00)
[2016-08-21] MEDS ORDERED: HYDROCODONE/APAP (5/325) TAB PO PRN (16:00)
[2016-08-21] MEDS ORDERED: NACL 0.9% 3 ML SYG IV SCH (16:00)
[2016-08-21] MEDS ORDERED: RANITIDINE 150 MG TAB PO PRN (16:00)
[2016-08-21] MEDS ORDERED: morphine 2 MG INJ IV PRN (16:00)
[2016-08-21] MEDS: ALBUTEROL/IPRATROPIUM (NEB) 3 ML AMP HHN SCH ×2 (17:00→22:25)
[2016-08-21 17:49] VITALS: TEMP 98.1
--- NOTE | 2016-08-21 18:35 | CONS ---
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 No evidence of acute decompensated congestive heart failure. Creatinine has worsened, likely secondary to hypovolemia and poor p.o. intake. Given severe cardiomyopathy, if IV hydration will be started, would recommend gentle hydration will close monitoring of respiratory status. Patient's chest pain began after vomiting. Would obtain serial cardiac enzymes for thoroughness sake. Patient with history of recent laparoscopic cholecystectomy with still with recurrent episodes of nausea and vomiting and abdominal pain. Would consider GI evaluation. Would hold diuretics and any nephrotoxic medications at the current time. Consultation Date/Type/Reason Admit Date/Time August 21, 2016 at 18:07 Type of Consultation: cv Reason for Consultation Cardiac evaluation Hx of Present Illness This is a 56-year-old female with past medical history of severe cardiomyopathy who presented to the emergency room with multiple complaints. Patient with symptoms of severe nausea, vomiting and fatigue progressing over the past 5 days. She has been unable to keep any food down. She also complains of shortness of breath since yesterday as well as mid chest pain. Chest pain is sharp at times in nature. Her shortness of breath is worse during episodes of nausea. She denies any fevers or chills, diarrhea. She has been feeling more fatigued. She went to see her paper bag machine operator Dr. Linda today and sent to the emergency room for further evaluation and care. 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% Mitral and tricuspid valve regurgitation Pulmonary hypertension Past Surgical History Past Surgical Hx: cholecystectomy, other (Biventricular ICD) Family History Significant Family History: no pertinent family hx Social History Alcohol Use: none Smoking Status: Never smoker Exam/Review of Systems Vital Signs Vitals Vital Signs Date Time Temp Pulse Resp B/P Pulse Ox O2 Delivery O2 Flow Rate FiO2 08/21/16 17:49 98.1 87 18 115/83 99 Room Air 08/21/16 12:19 21 Exam Appears fatigued, no apparent distress Constitutional: alert, oriented Head: normocephalic Respiratory: other (Coarse breath sounds bilaterally, no wheezing) Cardiovascular: other (S1-S2 heard), regular rate and rhythm Gastrointestinal: bowel sounds, other (Diffuse discomfort with palpation, no guarding), soft Extremities: other (No significant edema) Results Result Diagram: 08/21/16 1230 08/21/16 1230 Results 24 hrs Laboratory Tests Test 08/21/16 12:30 08/21/16 13:25 White Blood Count 9.6 Red Blood Count 4.98 Hemoglobin 14.0 Hematocrit 44.7 Mean Corpuscular Volume 89.8 Mean Corpuscular Hemoglobin 28.1 L Mean Corpuscular Hemoglobin Concent 31.3 L Red Cell Distribution Width 14.1 Platelet Count 274 Mean Platelet Volume 10.5 H Neutrophils % 77.1 H Lymphocytes % 11.7 L Monocytes % 10.0 Eosinophils % 0.6 Basophils % 0.4 Nucleated Red Blood Cells % 0.0 Neutrophils # 7.4 Lymphocytes # 1.1 Monocytes # 1.0 H Eosinophils # 0.1 Basophils # 0.0 Nucleated Red Blood Cells # 0.0 Prothrombin Time 14.8 H Prothrombin Time Ratio 1.2 INR International Normalized Ratio 1.16 Activated Partial Thromboplast Time 25.8 Sodium Level 134 L Potassium Level 4.0 Chloride Level 90 L Carbon Dioxide Level 31 Anion Gap 17 H Blood Urea Nitrogen 16 Creatinine 1.49 H Glucose Level 125 Lactic Acid Level 1.7 Calcium Level 9.6 Total Bilirubin 0.9 Direct Bilirubin 0.00 Indirect Bilirubin 0.9 Aspartate Amino Transf (AST/SGOT) 37 Alanine Aminotransferase (ALT/SGPT) 49 Alkaline Phosphatase 107 Troponin I 0.019 Total Protein 8.1 Albumin 4.7 Globulin 3.40 H Albumin/Globulin Ratio 1.38 Urine Color YELLOW Urine Clarity CLEAR Urine pH 5.5 Urine Specific [place] 1.020 Urine Ketones NEGATIVE Urine Nitrite NEGATIVE Urine Bilirubin NEGATIVE Urine Urobilinogen 1.0 E.U./dL Urine Leukocyte Esterase NEGATIVE Urine Hemoglobin NEGATIVE Urine Glucose NEGATIVE Urine Total Protein NEGATIVE Medications Medications Current Medications Ondansetron HCl (Zofran Inj) 4 mg Q6H PRN IV NAUSEA AND/OR VOMITING; Start at 16:00 Acetaminophen (Tylenol Tab) 650 mg Q6H PRN PO PAIN LEVEL 1-3 OR FEVER; Start at 16:00 Acetaminophen/ Hydrocodone Bitart ([place] (5/325)) 1 tab Q6H PRN PO MODERATE PAIN LEVEL 4-6; Start 08/21/16 at 16:00 Morphine Sulfate (morphine) 2 mg Q4H PRN IV SEVERE PAIN LEVEL 7-10; Start 08/21 at 16:00 Docusate Sodium (Colace) 100 mg Q12H PRN PO CONSTIPATION; Start 08/21/16 at 16: 00 Magnesium Hydroxide (Milk Of Mag) 30 ml DAILY PRN PO CONSTIPATION; Start at 16:00 Sodium Biphosphate/ Sodium Phosphate (Fleet Enema) 133 ml DAILY PRN [place] CONSTIPATION; Start 08/21/16 at 16:00 Heparin Sodium (Porcine) (Heparin (5000 Units/0.5 ml)) 5,000 unit Q12 SC ; Start 08/21/16 at 21:00 Lorazepam (Ativan) 0.5 mg Q6H PRN IV ANXIETY; Start 08/21/16 at 16:00 Hydralazine HCl (Apresoline) 10 mg Q6H PRN IV ELEVATED BLOOD PRESSURE; Start at 16:00 Nitroglycerin (Nitroglycerin (Sl Tab) 0.4 Mg) 1 tab Q5M PRN SL ANGINA; Start at 16:00 Aspirin (Aspirin) 81 mg DAILY PO ; Start 08/22/16 at 09:00 Carvedilol (Coreg) 3.125 mg BID PO ; Start 08/21/16 at 21:00 Ranitidine HCl (Zantac) 150 mg BID PRN PO EPIGASTRIC PAIN; Start 08/21/16 at 16 :00 Furosemide (Lasix) 40 mg DAILY IV ; Start 08/22/16 at 09:00 Methylprednisolone Sodium Succinate (Solu-Medrol) 80 mg Q6 IV ; Start 08/21/16 at 18:00 Procedures Procedures ECG demonstrates AV paced Gwyn Paris DO August 21, 2016 18:35
[2016-08-21 18:36] VITALS: BP 111/68; PULSE 63; RESP 18; Ht 175.3 cm; Wt 96.0 kg
[2016-08-21] MEDS: METHYLPREDNISOLONE 125 MG INJ IV SCH (18:46)
[2016-08-21] MEDS ORDERED: METOCLOPRAMIDE 10 MG INJ IV PRN (19:00)
--- NOTE | 2016-08-21 19:10 | CONS ---
Date/Time of Note Date/Time of Note DATE: 08/21/16 TIME: 19:00 Assessment/Plan Assessment/Plan Additional Assessment/Plan Assessment * Nausea and vomiting * Severe biventricular Cardiomyopathy * Acute kidney injury * Mitral and tricuspid valve regurgitation Pulmonary hypertension Plan * Review EGD and colonoscopy result * Metoclopramide 10 mg q 6 * Protonix 40 mg BID Consultation Date/Type/Reason Admit Date/Time August 21, 2016 at 18:07 Date of Consultation: August 21, 2016 Type of Consultation: gastroenterology Reason for Consultation nausea/vomiting Referring Provider: MAXX LO Hx of Present Illness 56 year old female with past medical history of severe cardiomyopathy who was brought to emergency room for evaluation of chest pain and persistent vomiting.She claims that vomiting has been occurring daily for the past 6 months.She underwent EGD and colonoscopy last 07/19/2016 Hiatal hernia. 2. Gastroesophageal reflux disease. 3. Gastritis with erosions. 4. Small prepyloric gastric ulcer. 5. Gastric mucosal biopsies were taken for Helicobacter pylori test. 6. Colonoscopy all the way to the cecum. 7. Small sigmoid colon polyp was removed using the biopsy forceps. 8. Internal hemorrhoids. Presently .no episode of vomiting but with occasional vague abdominal pain.patient is still on NPO Constitutional: improved, no complaints Eyes: no complaints ENT: no complaints Respiratory: no complaints Cardiovascular: no complaints Gastrointestinal: nausea, vomiting Genitourinary: no complaints Musculoskeletal: no complaints Skin: no complaints Neurologic: no complaints Endocrine: no complaints Lymphatic: no complaints Psychological: nl mood/affect, no complaints Immunologic: no complaints Past Medical History Medical History: congestive heart failure Past Surgical History Past Surgical Hx: cholecystectomy, other (Biventricular ICD) Family History Significant Family History: no pertinent family hx Social History Alcohol Use: none Smoking Status: Never smoker Exam/Review of Systems Vital Signs Vitals Vital Signs Date Time Temp Pulse Resp B/P Pulse Ox O2 Delivery O2 Flow Rate FiO2 08/21/16 18:36 97.3 63 18 111/68 98 Room Air 08/21/16 12:19 21 Exam Constitutional: alert, oriented, well developed Psych: nl mood/affect Head: atraumatic, normocephalic Eyes: PERRL, nl conjunctiva, nl sclera ENMT: nl nasal mucosa & septum Neck: non-tender, supple Respiratory: clear to auscultation, normal air movement Cardiovascular: nl pulses, regular rate and rhythm Gastrointestinal: nl liver, spleen, non-tender, soft Musculoskeletal: nl extremities to inspection, nl gait and stance Extremities: normal pulses Neurological: ARBORIST CLIMBER II-XII intact, nl mental status, nl speech, nl strength Skin: nl turgor, No rash or lesions Lymph: nl lymph nodes Results Result Diagram: 08/21/16 1230 08/21/16 1230 Results 24 hrs Laboratory Tests Test 08/21/16 12:30 08/21/16 13:25 White Blood Count 9.6 Red Blood Count 4.98 Hemoglobin 14.0 Hematocrit 44.7 Mean Corpuscular Volume 89.8 Mean Corpuscular Hemoglobin 28.1 L Mean Corpuscular Hemoglobin Concent 31.3 L Red Cell Distribution Width 14.1 Platelet Count 274 Mean Platelet Volume 10.5 H Neutrophils % 77.1 H Lymphocytes % 11.7 L Monocytes % 10.0 Eosinophils % 0.6 Basophils % 0.4 Nucleated Red Blood Cells % 0.0 Neutrophils # 7.4 Lymphocytes # 1.1 Monocytes # 1.0 H Eosinophils # 0.1 Basophils # 0.0 Nucleated Red Blood Cells # 0.0 Prothrombin Time 14.8 H Prothrombin Time Ratio 1.2 INR International Normalized Ratio 1.16 Activated Partial Thromboplast Time 25.8 Sodium Level 134 L Potassium Level 4.0 Chloride Level 90 L Carbon Dioxide Level 31 Anion Gap 17 H Blood Urea Nitrogen 16 Creatinine 1.49 H Glucose Level 125 Lactic Acid Level 1.7 Calcium Level 9.6 Total Bilirubin 0.9 Direct Bilirubin 0.00 Indirect Bilirubin 0.9 Aspartate Amino Transf (AST/SGOT) 37 Alanine Aminotransferase (ALT/SGPT) 49 Alkaline Phosphatase 107 Troponin I 0.019 Total Protein 8.1 Albumin 4.7 Globulin 3.40 H Albumin/Globulin Ratio 1.38 Urine Color YELLOW Urine Clarity CLEAR Urine pH 5.5 Urine Specific [place] 1.020 Urine Ketones NEGATIVE Urine Nitrite NEGATIVE Urine Bilirubin NEGATIVE Urine Urobilinogen 1.0 E.U./dL Urine Leukocyte Esterase NEGATIVE Urine Hemoglobin NEGATIVE Urine Glucose NEGATIVE Urine Total Protein NEGATIVE Medications Medications Current Medications Ondansetron HCl (Zofran Inj) 4 mg Q6H PRN IV NAUSEA AND/OR VOMITING; Start at 16:00 Acetaminophen (Tylenol Tab) 650 mg Q6H PRN PO PAIN LEVEL 1-3 OR FEVER; Start at 16:00 Acetaminophen/ Hydrocodone Bitart ([place] (5/325)) 1 tab Q6H PRN PO MODERATE PAIN LEVEL 4-6; Start 08/21/16 at 16:00 Morphine Sulfate (morphine) 2 mg Q4H PRN IV SEVERE PAIN LEVEL 7-10; Start 08/21 at 16:00 Docusate Sodium (Colace) 100 mg Q12H PRN PO CONSTIPATION; Start 08/21/16 at 16: 00 Magnesium Hydroxide (Milk Of Mag) 30 ml DAILY PRN PO CONSTIPATION; Start at 16:00 Sodium Biphosphate/ Sodium Phosphate (Fleet Enema) 133 ml DAILY PRN [place] CONSTIPATION; Start 08/21/16 at 16:00 Heparin Sodium (Porcine) (Heparin (5000 Units/0.5 ml)) 5,000 unit Q12 SC ; Start 08/21/16 at 21:00 Lorazepam (Ativan) 0.5 mg Q6H PRN IV ANXIETY; Start 08/21/16 at 16:00 Hydralazine HCl (Apresoline) 10 mg Q6H PRN IV ELEVATED BLOOD PRESSURE; Start at 16:00 Nitroglycerin (Nitroglycerin (Sl Tab) 0.4 Mg) 1 tab Q5M PRN SL ANGINA; Start at 16:00 Aspirin (Aspirin) 81 mg DAILY PO ; Start 08/22/16 at 09:00 Carvedilol (Coreg) 3.125 mg BID PO ; Start 08/21/16 at 21:00 Ranitidine HCl (Zantac) 150 mg BID PRN PO EPIGASTRIC PAIN; Start 08/21/16 at 16 :00 Methylprednisolone Sodium Succinate 80 mg 80 mg Q6 IV Last administered on 08/21t 18:46; Admin Dose 80 MG; Start 08/21/16 at 18:00 Sodium Chloride (1/2 NS) 1,000 ml @ 50 mls/hr Q20H IV ; Start 08/21/16 at 19:00 NIKA SPENCE MD August 21, 2016 19:10
[2016-08-21] MEDS: SOD CHLORIDE 0.45% 1,000 ML IV SCH (19:16)
[2016-08-21 19:22] LABS: PROTEIN/CREAT RATIO 0.03 RATIO
--- NOTE | 2016-08-21 19:34 | HP ---
DATE OF ADMISSION: 08/21/2016 CHIEF COMPLAINT: Chest pain and shortness of breath. HISTORY OF PRESENT ILLNESS: A 56-year-old female with past medical history of COPD, CHF, essential hypertension, prior pacemaker placement who has been having chest pain and shortness breath symptoms along with some nausea, vomiting symptoms for the past 2 days. She was actually seen by her electr ophysiologist today who thought that the patient did not look well and decided to ask the patient to come to the ER to get further evaluation. The patient denied any fevers or chills. No upper or lo wer GI bleeding, but she has been, again, having nausea and vomiting symptoms as well as chest pain and shortness of breath. She has actually been to the ER twice in the last week and was treated, bu t sent home each time, but her symptoms progressed. PAST MEDICAL HISTORY: As stated above. ALLERGIES: NO KNOWN DRUG ALLERGIES. MEDICATIONS AT HOME: 1. Coreg 3.125 mg b.i.d. 2. Lisinopril 2.5 mg b.i.d. 3. Aldactone 25 mg b.i.d. 4. Aspirin 81 mg daily. 5. Lasix 40 mg p.o. b.i.d. 6. Reglan 10 mg q.6 p.r.n. 7. Zofran 4 mg p.o. b.i.d. p.r.n. 8. Zantac 150 mg b.i.d. p.r.n. PAST SURGICAL HISTORY: She has had umbilical hernia repair and cholecystectomy in the past. SOCIAL HISTORY: Negative for smoking, drinking, or IV drug abuse. FAMILY HISTORY: Noncontributory. PHYSICAL EXAMINATION: VITAL SIGNS: Today, T-max 98.8, pulse 81 to 83, respirations 22, blood pressure 127/89, satting at 100% on room air. GENERAL: The patient is lying in bed, answering questions appropriately. No acute distress. HEENT: Pupils equal, round, react to light. Extraocular muscles intact. NECK: Supple. No thyromegaly. LUNGS: Mild wheezing heard in the upper and lower lung victor bilaterally. CARDIOVASCULAR: S1, S2 heard. No rubs or gallops. ABDOMEN: Some mild tenderness to palpation in epigastric area, but otherwise no rebound or guarding . Normal bowel sounds. MUSCULOSKELETAL: Trace pitting edema bilateral lower extremities to the ankles. NEUROLOGIC: No focal deficits. LABORATORIES: CBC is completely normal. The basic metabolic panel is essentially normal except the creatinine is 1.49. UA is negative nitrites, negative leukocyte esterase. Chest x-ray today showe d stable cardiomegaly, low lung volumes which compress the lung parenchyma and causes vascular crowd ing. No focal consolidation seen. 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 1. Shortness of breath. Again secondary to combination of chronic obstructive pulmonary disease an d congestive heart failure exacerbation. We will admit the patient to telemetry floor. Get a cardi ology consult. Put her on Solu-Medrol, also DuoNeb q.4 around the clock. We will also put her on L asix. Monitor BUN and creatinine levels very carefully. Monitor ins and outs. Keep the head of th e bed greater than 30 degrees. We will put her on low-dose beta luis e as well. Check a TSH, A1c, lipid panel. Consider ordering an echocardiogram. 2. Nausea, vomiting symptoms. Per discussion with cardiology, will get a GI consult. The patient does deny any upper or lower gastrointestinal bleeding, but the nausea and vomiting symptoms appear to be more persistent than normal. The patient may benefit from EGD, colonoscopy and will discuss w [facility] GI team at that time. 3. History of essential hypertension. Continue to monitor for now. Continue beta luis e. Blood pressure stable. 4. History of chronic obstructive pulmonary disease. Again, see #1. She is on DuoNebs. 5. Gastrointestinal prophylaxis, H2 luis e. 6. Deep venous thrombosis prophylaxis, heparin subcutaneously. Dictated By: MAXX REYES Conf#: [id number] DID#: [id number]
[2016-08-21 20:14] VITALS: BP 96/63; RESP 20
[2016-08-21 20:36] VITALS: PULSE 69
[2016-08-21] MEDS: LORAZEPAM 2 MG INJ IV PRN (21:02)
[2016-08-21] MEDS: HEPARIN 5,000 UNIT/0.5 ML VIAL SC SCH (21:04)
--- NOTE | 2016-08-21 23:22 | CONS ---
Date/Time of Note Date/Time of Note DATE: 08/21/16 TIME: 23:20 Assessment/Plan Assessment/Plan Chief Complaint/Hosp Course A/P WILEY COPD ASHD PRE RENAL AZOTEMIA PLAN LYTES MILD HYDRATION W IV Problems: Consultation Date/Type/Reason Admit Date/Time August 21, 2016 at 18:07 Initial Consult Date 08/21/16 Type of Consultation: renal Referring Provider: MAXX LO 24 HR Interval Summary Constitutional: No chills, No diaphoresis, No febrile Exam/Review of Systems Vital Signs Vitals Vital Signs Date Time Temp Pulse Resp B/P Pulse Ox O2 Delivery O2 Flow Rate FiO2 08/21/16 22:36 94 22 96 21 08/21/16 20:14 97.7 96/63 08/21/16 18:36 Room Air Exam Neck: supple Respiratory: diminished breath sounds Cardiovascular: regular rate and rhythm Gastrointestinal: bowel sounds, soft Extremities: normal pulses, No edema Neurological: VP PURCHASING II-XII intact, nl mental status Results Result Diagram: 08/21/16 1230 08/21/16 1230 Results 24 hrs Laboratory Tests Test 08/21/16 12:30 08/21/16 13:25 08/21/16 14:00 08/21/16 19:10 White Blood Count 9.6 Red Blood Count 4.98 Hemoglobin 14.0 Hematocrit 44.7 Mean Corpuscular Volume 89.8 Mean Corpuscular Hemoglobin 28.1 L Mean Corpuscular Hemoglobin Concent 31.3 L Red Cell Distribution Width 14.1 Platelet Count 274 Mean Platelet Volume 10.5 H Neutrophils % 77.1 H Lymphocytes % 11.7 L Monocytes % 10.0 Eosinophils % 0.6 Basophils % 0.4 Nucleated Red Blood Cells % 0.0 Neutrophils # 7.4 Lymphocytes # 1.1 Monocytes # 1.0 H Eosinophils # 0.1 Basophils # 0.0 Nucleated Red Blood Cells # 0.0 Prothrombin Time 14.8 H Prothrombin Time Ratio 1.2 INR International Normalized Ratio 1.16 Activated Partial Thromboplast Time 25.8 Sodium Level 134 L Potassium Level 4.0 Chloride Level 90 L Carbon Dioxide Level 31 Anion Gap 17 H Blood Urea Nitrogen 16 Creatinine 1.49 H Glucose Level 125 Lactic Acid Level 1.7 1.5 Calcium Level 9.6 Total Bilirubin 0.9 Direct Bilirubin 0.00 Indirect Bilirubin 0.9 Aspartate Amino Transf (AST/SGOT) 37 Alanine Aminotransferase (ALT/SGPT) 49 Alkaline Phosphatase 107 Troponin I 0.019 Total Protein 8.1 Albumin 4.7 Globulin 3.40 H Albumin/Globulin Ratio 1.38 Urine Color YELLOW Urine Clarity CLEAR Urine pH 5.5 Urine Specific [place] 1.020 Urine Ketones NEGATIVE Urine Nitrite NEGATIVE Urine Bilirubin NEGATIVE Urine Urobilinogen 1.0 E.U./dL Urine Leukocyte Esterase NEGATIVE Urine Hemoglobin NEGATIVE Urine Random Creatinine 268.81 Urine Random Sodium 35 Urine Protein/Creatinine Ratio 0.03 Urine Glucose NEGATIVE Urine Total Protein 9.0 Free Thyroxine 1.61 Test 08/21/16 20:43 Lactic Acid Level 1.5 Troponin I 0.015 Medications Medications Current Medications Ondansetron HCl (Zofran Inj) 4 mg Q6H PRN IV NAUSEA AND/OR VOMITING; Start at 16:00 Acetaminophen (Tylenol Tab) 650 mg Q6H PRN PO PAIN LEVEL 1-3 OR FEVER; Start at 16:00 Acetaminophen/ Hydrocodone Bitart ([place] (5/325)) 1 tab Q6H PRN PO MODERATE PAIN LEVEL 4-6; Start 08/21/16 at 16:00 Morphine Sulfate (morphine) 2 mg Q4H PRN IV SEVERE PAIN LEVEL 7-10; Start 08/21 at 16:00 Docusate Sodium (Colace) 100 mg Q12H PRN PO CONSTIPATION; Start 08/21/16 at 16: 00 Magnesium Hydroxide (Milk Of Mag) 30 ml DAILY PRN PO CONSTIPATION; Start at 16:00 Sodium Biphosphate/ Sodium Phosphate (Fleet Enema) 133 ml DAILY PRN [place] CONSTIPATION; Start 08/21/16 at 16:00 Heparin Sodium (Porcine) (Heparin (5000 Units/0.5 ml)) 5,000 unit Q12 SC Last administered on 08/21/16 21:04; Admin Dose 5,000 UNIT; Start 08/21/16 at 21:00 Lorazepam (Ativan) 0.5 mg Q6H PRN IV ANXIETY Last administered on 08/21/16 21: 02; Admin Dose 0.5 MG; Start 08/21/16 at 16:00 Hydralazine HCl (Apresoline) 10 mg Q6H PRN IV ELEVATED BLOOD PRESSURE; Start at 16:00 Nitroglycerin (Nitroglycerin (Sl Tab) 0.4 Mg) 1 tab Q5M PRN SL ANGINA; Start at 16:00 Aspirin (Aspirin) 81 mg DAILY PO ; Start 08/22/16 at 09:00 Carvedilol (Coreg) 3.125 mg BID PO Last administered on 08/21/16 21:02; Admin Dose 3.125 MG; Start 08/21/16 at 21:00 Ranitidine HCl (Zantac) 150 mg BID PRN PO EPIGASTRIC PAIN; Start 08/21/16 at 16 :00 Methylprednisolone Sodium Succinate 80 mg 80 mg Q6 IV Last administered on 08/21 18:46; Admin Dose 80 MG; Start 08/21/16 at 18:00 Sodium Chloride (1/2 NS) 1,000 ml @ 50 mls/hr Q20H IV Last administered on 19:16; Admin Dose 50 MLS/HR; Start 08/21/16 at 19:00 Pantoprazole (Protonix Iv) 40 mg BID@06,18 IV ; Start 08/22/16 at 06:00 Metoclopramide HCl (Reglan) 10 mg Q6H PRN IV nausea/vomiting; Start 08/21/16 at 19:00 LAURA ALMEIDA MD August 21, 2016 23:22
[2016-08-22] VITALS (12 sets, daily range): BP systolic 100–114; BP diastolic 54–64; PULSE 69–75; RESP 17–20
[2016-08-22] MEDS: METHYLPREDNISOLONE 125 MG INJ IV SCH ×2 (00:45→05:22)
[2016-08-22] MEDS: ALBUTEROL/IPRATROPIUM (NEB) 3 ML AMP HHN SCH ×6 (01:00→20:06)
[2016-08-22] MEDS: PANTOPRAZOLE 40 MG INJ IV SCH ×2 (05:22→17:31)
[2016-08-22 07:59] LABS: CHOL/HDL RATIO 4.3 RATIO
[2016-08-22 08:28] LABS: THYROID STIMULATING HORMONE 0.086 MIU/L (0.465-4.680)
[2016-08-22] MEDS ORDERED: FUROSEMIDE 40 MG INJ IV SCH (09:00)
[2016-08-22] MEDS: ASPIRIN 81 MG TAB PO SCH (09:16)
[2016-08-22] MEDS: LORAZEPAM 2 MG INJ IV PRN ×3 (09:18→23:39)
[2016-08-22] MEDS: HEPARIN 5,000 UNIT/0.5 ML VIAL SC SCH ×2 (09:26→21:15)
[2016-08-22 09:57] LABS: ADD SCAN DIFF NO
[2016-08-22 09:59] LABS: ABNORMAL IP MESSAGE 1; BASOPHILS % 0.1 % (0.0-2.0); HEMATOCRIT 41.1 % (37.0-47.0); HEMOGLOBIN 13.1 g/dl (12.0-16.0); LYMPHOCYTES # 0.5 10^3/ul (0.8-2.9); LYMPHOCYTES % 5.4 % (15.0-51.0); MEAN CORPUSCULAR HEMOGLOBIN 28.5 pg (29.0-33.0); MEAN CORPUSCULAR HGB CONC 31.9 g/dl (32.0-37.0); MEAN CORPUSCULAR VOLUME 89.3 fl (82.0-101.0); MONOCYTE # 0.2 10^3/ul (0.3-0.9); MONOCYTES % 2.4 % (0.0-11.0); NEUTROPHILS % 91.8 % (39.0-77.0); PLATELET COUNT 226 10^3/UL (140-415); RED CELL DISTRIBUTION WIDTH 13.6 % (11.5-14.5); WHITE BLOOD COUNT 8.7 10^3/ul (4.8-10.8)
[2016-08-22 10:06] LABS: ALBUMIN 4.1 g/dl (3.3-4.9); POTASSIUM 4.5 mmol/L (3.5-5.1)
[2016-08-22 10:07] LABS: ALBUMIN/GLOBULIN RATIO 1.32
[2016-08-22 10:08] LABS: BILIRUBIN,INDIRECT 0.8 mg/dl (0-1.1); BILIRUBIN,TOTAL 0.8 mg/dl (0.2-1.3); CREATININE 0.99 mg/dl (0.44-1.00); MAGNESIUM 2.3 mg/dl (1.7-2.5); PHOSPHORUS 4.8 mg/dl (2.5-4.9); TOTAL PROTEIN 7.2 g/dl (6.1-8.1)
[2016-08-22 10:09] LABS: CALCIUM 9.4 mg/dl (8.4-10.2)
--- NOTE | 2016-08-22 11:29 | PN ---
Date/Time of Note Date/Time of Note DATE: 08/22/16 TIME: 11:29 Assessment/Plan VTE Prophylaxis VTE Prophylaxis Intervention: heparin Lines/Catheters IV Catheter Type (from Nrs): Peripheral IV Urinary Cath still in place: No Assessment/Plan Assessment/Plan A 56-year-old female coming in with SOB associated with some nausea and vomiting : 1. Reactive airway disease: improved 2. 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 Mitral and tricuspid valve regurgitation 4. Pulmonary hypertension 5. No active CHF 6. WILEY PLAN: * continue current regimen, patient is improving, still quite lethargic, continue in-house monitoring * Gastrointestinal prophylaxis, H2 luis e. * Deep venous thrombosis prophylaxis, heparin subcutaneously. Subjective 24 Hr Interval Summary Free Text/Dictation patient seen Still quite lethargic, no cough, but with minimal SOB Exam/Review of Systems Vital Signs Vitals Vital Signs Date Time Temp Pulse Resp B/P Pulse Ox O2 Delivery O2 Flow Rate FiO2 08/22/16 08:00 75 08/22/16 07:38 98.2 17 100/60 98 08/21/16 22:36 21 08/21/16 18:36 Room Air Exam Constitutional: alert, oriented Psych: anxiety Head: normocephalic Eyes: PERRL ENMT: mucosa pink and moist Respiratory: diminished breath sounds, No crackles/rales, No wheezing Cardiovascular: regular rate and rhythm Gastrointestinal: bowel sounds, non-tender, soft Extremities: No edema Neurological: lethargic Results Result Diagram: 08/22/16 0715 08/22/16 0715 Results 24 hrs Laboratory Tests Test 08/21/16 12:30 08/21/16 13:25 08/21/16 14:00 08/21/16 19:10 White Blood Count 9.6 Red Blood Count 4.98 Hemoglobin 14.0 Hematocrit 44.7 Mean Corpuscular Volume 89.8 Mean Corpuscular Hemoglobin 28.1 L Mean Corpuscular Hemoglobin Concent 31.3 L Red Cell Distribution Width 14.1 Platelet Count 274 Mean Platelet Volume 10.5 H Neutrophils % 77.1 H Lymphocytes % 11.7 L Monocytes % 10.0 Eosinophils % 0.6 Basophils % 0.4 Nucleated Red Blood Cells % 0.0 Neutrophils # 7.4 Lymphocytes # 1.1 Monocytes # 1.0 H Eosinophils # 0.1 Basophils # 0.0 Nucleated Red Blood Cells # 0.0 Prothrombin Time 14.8 H Prothrombin Time Ratio 1.2 INR International Normalized Ratio 1.16 Activated Partial Thromboplast Time 25.8 Sodium Level 134 L Potassium Level 4.0 Chloride Level 90 L Carbon Dioxide Level 31 Anion Gap 17 H Blood Urea Nitrogen 16 Creatinine 1.49 H Glucose Level 125 Lactic Acid Level 1.7 1.5 Calcium Level 9.6 Total Bilirubin 0.9 Direct Bilirubin 0.00 Indirect Bilirubin 0.9 Aspartate Amino Transf (AST/SGOT) 37 Alanine Aminotransferase (ALT/SGPT) 49 Alkaline Phosphatase 107 Troponin I 0.019 Total Protein 8.1 Albumin 4.7 Globulin 3.40 H Albumin/Globulin Ratio 1.38 Urine Color YELLOW Urine Clarity CLEAR Urine pH 5.5 Urine Specific [place] 1.020 Urine Ketones NEGATIVE Urine Nitrite NEGATIVE Urine Bilirubin NEGATIVE Urine Urobilinogen 1.0 E.U./dL Urine Leukocyte Esterase NEGATIVE Urine Hemoglobin NEGATIVE Urine Random Creatinine 268.81 Urine Random Sodium 35 Urine Protein/Creatinine Ratio 0.03 Urine Glucose NEGATIVE Urine Total Protein 9.0 Free Thyroxine 1.61 Test 08/21/16 20:43 08/22/16 07:15 Lactic Acid Level 1.5 Troponin I 0.015 White Blood Count 8.7 Red Blood Count 4.60 Hemoglobin 13.1 Hematocrit 41.1 Mean Corpuscular Volume 89.3 Mean Corpuscular Hemoglobin 28.5 L Mean Corpuscular Hemoglobin Concent 31.9 L Red Cell Distribution Width 13.6 Platelet Count 226 Mean Platelet Volume 11.0 H Neutrophils % 91.8 H Lymphocytes % 5.4 L Monocytes % 2.4 Eosinophils % 0.0 Basophils % 0.1 Nucleated Red Blood Cells % 0.0 Neutrophils # 8.0 H Lymphocytes # 0.5 L Monocytes # 0.2 L Eosinophils # 0.0 Basophils # 0.0 Nucleated Red Blood Cells # 0.0 Sodium Level 132 L Potassium Level 4.5 Chloride Level 92 L Carbon Dioxide Level 27 Anion Gap 18 H Blood Urea Nitrogen 19 Creatinine 0.99 Glucose Level 116 Hemoglobin A1c 5.4 Calcium Level 9.4 Phosphorus Level 4.8 Magnesium Level 2.3 Total Bilirubin 0.8 Direct Bilirubin 0.00 Indirect Bilirubin 0.8 Aspartate Amino Transf (AST/SGOT) 67 H Alanine Aminotransferase (ALT/SGPT) 40 Alkaline Phosphatase 84 Total Protein 7.2 Albumin 4.1 Globulin 3.10 Albumin/Globulin Ratio 1.32 Triglycerides Level 56 Cholesterol Level 187 LDL Cholesterol, Calculated 133 HDL Cholesterol 43 Cholesterol/HDL Ratio 4.3 Thyroid Stimulating Hormone (TSH) 0.086 L Medications Medications Current Medications Ondansetron HCl (Zofran Inj) 4 mg Q6H PRN IV NAUSEA AND/OR VOMITING; Start at 16:00 Acetaminophen (Tylenol Tab) 650 mg Q6H PRN PO PAIN LEVEL 1-3 OR FEVER; Start at 16:00 Acetaminophen/ Hydrocodone Bitart ([place] (5/325)) 1 tab Q6H PRN PO MODERATE PAIN LEVEL 4-6; Start 08/21/16 at 16:00 Morphine Sulfate (morphine) 2 mg Q4H PRN IV SEVERE PAIN LEVEL 7-10; Start 08/21 at 16:00 Docusate Sodium (Colace) 100 mg Q12H PRN PO CONSTIPATION; Start 08/21/16 at 16: 00 Magnesium Hydroxide (Milk Of Mag) 30 ml DAILY PRN PO CONSTIPATION; Start at 16:00 Sodium Biphosphate/ Sodium Phosphate (Fleet Enema) 133 ml DAILY PRN [place] CONSTIPATION; Start 08/21/16 at 16:00 Heparin Sodium (Porcine) (Heparin (5000 Units/0.5 ml)) 5,000 unit Q12 SC Last administered on 08/22/16 09:26; Admin Dose 5,000 UNIT; Start 08/21/16 at 21:00 Lorazepam (Ativan) 0.5 mg Q6H PRN IV ANXIETY Last administered on 08/22/16 09: 18; Admin Dose 0.5 MG; Start 08/21/16 at 16:00 Hydralazine HCl (Apresoline) 10 mg Q6H PRN IV ELEVATED BLOOD PRESSURE; Start at 16:00 Nitroglycerin (Nitroglycerin (Sl Tab) 0.4 Mg) 1 tab Q5M PRN SL ANGINA; Start at 16:00 Aspirin (Aspirin) 81 mg DAILY PO Last administered on 08/22/16 09:16; Admin Dose 81 MG; Start 08/22/16 at 09:00 Carvedilol (Coreg) 3.125 mg BID PO Last administered on 08/21/16 21:02; Admin Dose 3.125 MG; Start 08/21/16 at 21:00 Ranitidine HCl (Zantac) 150 mg BID PRN PO EPIGASTRIC PAIN; Start 08/21/16 at 16 :00 Methylprednisolone Sodium Succinate 80 mg 80 mg Q6 IV Last administered on 08/22 05:22; Admin Dose 80 MG; Start 08/21/16 at 18:00 Sodium Chloride (1/2 NS) 1,000 ml @ 50 mls/hr Q20H IV Last administered on 19:16; Admin Dose 50 MLS/HR; Start 08/21/16 at 19:00 Pantoprazole (Protonix Iv) 40 mg BID@06,18 IV Last administered on 08/22/16 05 :22; Admin Dose 40 MG; Start 08/22/16 at 06:00 Metoclopramide HCl (Reglan) 10 mg Q6H PRN IV nausea/vomiting; Start 08/21/16 at 19:00 Procedures Procedures Echocardiogram Report Patient Name: PHUONG WILKES Gender: Female Date: 1960 Study Date: 21-Aug-2016 Parenting Skills Instructor: Allison [facility] Location: [facility] Ref. Physician: MAXX LO Quality: Adequate Procedures: Transthoracic echocardiogram with complete 2D, M-Mode, and doppler examination. Indications: Shortness of breath. 2D/M Mode Doppler Measurement Value Normal Ranges Measurement Value Normal Ranges LVIDd 2D 6.8 3.5 - 5.6 cm AV Peak Daniel 1.8 m/sec LVIDs 2D 6.1 2.1 - 4.1 cm AV Peak PG 13.5 mmHg LVPWd 2D 0.9 0.6 - 1.1 cm AI Peak PG 62.6 mmHg IVSd 2D 0.6 0.6 - 1.1 cm AI Peak Daniel 4.0 m/sec AoR Diam 2D 2.3 2.0 - 3.7 cm AI PHT 447.5 msec EDV 2D 236.1 cm3 LVOT Peak Daniel 0.5 m/sec ESV 2D 224.9 cm3 LVOT Peak PG 1.0 mmHg LA Dimen 2D 5.2 2.3 - 4.0 cm MV E Peak Daniel 1.2 m/sec MV A Peak Daniel 0.6 m/sec MV E/A 2.2 MV Decel Time 153 msec MV Decel Bond 8 MV E/A 2.2 TR Peak Daniel 2.9 m/sec TR Peak PG 34.1 mmHg RVSP 42.0 mmHg Findings Left Ventricle: Normal left ventricular wall thickness. Moderate enlargement of left ventricle cavity. Severe left ventricular systolic dysfunction. Ejection fraction is visually estimated at 20 %. Abnormal Diastolic Function. Right Ventricle: Normal right ventricular systolic function. Mild enlargement of right ventricle. Linear artifact in right ventricle suggestive of catheter, pacer lead, or ICD lead. Left Atrium: There is moderate enlargement of left atrium. Right Atrium: There is mild enlargement of right atrium. Mitral Valve: Mitral valve leaflets appear mildly thickened. Mild mitral valve regurgitation. Aortic Valve: Normal appearance of the aortic valve. No hemodynamically significant aortic stenosis by doppler. Mild aortic valve regurgitation. Tricuspid Valve: Normal appearance of the tricuspid valve. Estimated peak PA systolic pressure 42 mmHg. There is mild tricuspid regurgitation. Pulmonic Valve: Pulmonic valve not well visualized. There is mild pulmonic regurgitation. Pericardium: Normal pericardium with no significant pericardial effusion. Aorta: Normal aortic root. IVC: Normal size and poor respiratory collapse consistent with elevated right atrial pressure. Conclusions 1. Normal left ventricular wall thickness. Moderate enlargement of left ventricle cavity. Severe left ventricular systolic dysfunction. Ejection fraction is visually estimated at 20 %. Abnormal Diastolic Function. 2. Normal right ventricular systolic function. Mild enlargement of right ventricle. Linear artifact in right ventricle suggestive of catheter, pacer lead, or ICD lead. 3. There is moderate enlargement of left atrium. 4. There is mild enlargement of right atrium. 5. Mild mitral valve regurgitation. 6. Mild aortic valve regurgitation. No stenosis. 7. Estimated peak PA systolic pressure 42 mmHg. There is mild tricuspid regurgitation. 8. There is mild pulmonic regurgitation. 9. Normal pericardium with no significant pericardial effusion. Electronically Signed By: Gwyn Paris 22-Aug-2016 12:59:55 [id number] Patient Name: PHUONG WILKES Study Date: 21-Aug-2016 [id number] PROCEDURE: XR Chest. CLINICAL INDICATION: Possible Sepsis TECHNIQUE: Single frontal view of the chest was obtained COMPARISON: 08/20/2016 FINDINGS: The left subclavian AICD is again seen. The heart remains enlarged. Low lung volumes compress the lung parenchyma and cause vascular crowding. No focal consolidation is identified. There is no pleural effusion or pneumothorax. The bones and soft tissue show no acute change. IMPRESSION: 1. Stable cardiomegaly. 2. Low lung volumes compresses the lung parenchyma and cause vascular crowding. No focal consolidation is identified. RPTAT:AAJJ Yossi Auguste Physician Date Time Electronically viewed and signed by Yossi Auguste, Physician on 08/21/2016 13: 00 MC/ CC: MARGARETTE HOOKS BOLATITO M. August 22, 2016 11:29
[2016-08-22] MEDS: SOD CHLORIDE 0.45% 1,000 ML IV SCH ×2 (11:59→15:00)
--- NOTE | 2016-08-22 12:04 | CONS ---
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 Patient feeling better with no nausea currently. Patient currently on gentle IV hydration, would watch closely for decompensated congestive heart failure. Would diuretics for today. Patient undergoing GI evaluation. Consultation Date/Type/Reason Admit Date/Time August 21, 2016 at 18:07 Initial Consult Date 08/21/16 Type of Consultation: cv Referring Provider: MAXX LO 24 HR Interval Summary Free Text/Dictation Feeling much better today. Denies chest pain, shortness of breath, palpitations. Nausea is better Exam/Review of Systems Vital Signs Vitals Vital Signs Date Time Temp Pulse Resp B/P Pulse Ox O2 Delivery O2 Flow Rate FiO2 08/22/16 11:40 97.9 70 18 105/54 99 08/21/16 22:36 21 08/21/16 18:36 Room Air Exam No apparent distress Constitutional: alert, obese, oriented Head: normocephalic Neck: supple Respiratory: other (Coarse breath sounds bilaterally, no wheezing) Cardiovascular: other (S1-S2 heard), regular rate and rhythm Gastrointestinal: bowel sounds, non-tender, soft Extremities: other (No edema) Results Result Diagram: 08/22/16 0715 08/22/16 0715 Results 24 hrs Laboratory Tests Test 08/21/16 12:30 08/21/16 13:25 08/21/16 14:00 08/21/16 19:10 White Blood Count 9.6 Red Blood Count 4.98 Hemoglobin 14.0 Hematocrit 44.7 Mean Corpuscular Volume 89.8 Mean Corpuscular Hemoglobin 28.1 L Mean Corpuscular Hemoglobin Concent 31.3 L Red Cell Distribution Width 14.1 Platelet Count 274 Mean Platelet Volume 10.5 H Neutrophils % 77.1 H Lymphocytes % 11.7 L Monocytes % 10.0 Eosinophils % 0.6 Basophils % 0.4 Nucleated Red Blood Cells % 0.0 Neutrophils # 7.4 Lymphocytes # 1.1 Monocytes # 1.0 H Eosinophils # 0.1 Basophils # 0.0 Nucleated Red Blood Cells # 0.0 Prothrombin Time 14.8 H Prothrombin Time Ratio 1.2 INR International Normalized Ratio 1.16 Activated Partial Thromboplast Time 25.8 Sodium Level 134 L Potassium Level 4.0 Chloride Level 90 L Carbon Dioxide Level 31 Anion Gap 17 H Blood Urea Nitrogen 16 Creatinine 1.49 H Glucose Level 125 Lactic Acid Level 1.7 1.5 Calcium Level 9.6 Total Bilirubin 0.9 Direct Bilirubin 0.00 Indirect Bilirubin 0.9 Aspartate Amino Transf (AST/SGOT) 37 Alanine Aminotransferase (ALT/SGPT) 49 Alkaline Phosphatase 107 Troponin I 0.019 Total Protein 8.1 Albumin 4.7 Globulin 3.40 H Albumin/Globulin Ratio 1.38 Urine Color YELLOW Urine Clarity CLEAR Urine pH 5.5 Urine Specific [place] 1.020 Urine Ketones NEGATIVE Urine Nitrite NEGATIVE Urine Bilirubin NEGATIVE Urine Urobilinogen 1.0 E.U./dL Urine Leukocyte Esterase NEGATIVE Urine Hemoglobin NEGATIVE Urine Random Creatinine 268.81 Urine Random Sodium 35 Urine Protein/Creatinine Ratio 0.03 Urine Glucose NEGATIVE Urine Total Protein 9.0 Free Thyroxine 1.61 Test 08/21/16 20:43 08/22/16 07:15 Lactic Acid Level 1.5 Troponin I 0.015 White Blood Count 8.7 Red Blood Count 4.60 Hemoglobin 13.1 Hematocrit 41.1 Mean Corpuscular Volume 89.3 Mean Corpuscular Hemoglobin 28.5 L Mean Corpuscular Hemoglobin Concent 31.9 L Red Cell Distribution Width 13.6 Platelet Count 226 Mean Platelet Volume 11.0 H Neutrophils % 91.8 H Lymphocytes % 5.4 L Monocytes % 2.4 Eosinophils % 0.0 Basophils % 0.1 Nucleated Red Blood Cells % 0.0 Neutrophils # 8.0 H Lymphocytes # 0.5 L Monocytes # 0.2 L Eosinophils # 0.0 Basophils # 0.0 Nucleated Red Blood Cells # 0.0 Sodium Level 132 L Potassium Level 4.5 Chloride Level 92 L Carbon Dioxide Level 27 Anion Gap 18 H Blood Urea Nitrogen 19 Creatinine 0.99 Glucose Level 116 Hemoglobin A1c 5.4 Calcium Level 9.4 Phosphorus Level 4.8 Magnesium Level 2.3 Total Bilirubin 0.8 Direct Bilirubin 0.00 Indirect Bilirubin 0.8 Aspartate Amino Transf (AST/SGOT) 67 H Alanine Aminotransferase (ALT/SGPT) 40 Alkaline Phosphatase 84 Total Protein 7.2 Albumin 4.1 Globulin 3.10 Albumin/Globulin Ratio 1.32 Triglycerides Level 56 Cholesterol Level 187 LDL Cholesterol, Calculated 133 HDL Cholesterol 43 Cholesterol/HDL Ratio 4.3 Thyroid Stimulating Hormone (TSH) 0.086 L Medications Medications Current Medications Ondansetron HCl (Zofran Inj) 4 mg Q6H PRN IV NAUSEA AND/OR VOMITING; Start at 16:00 Acetaminophen (Tylenol Tab) 650 mg Q6H PRN PO PAIN LEVEL 1-3 OR FEVER; Start at 16:00 Acetaminophen/ Hydrocodone Bitart ([place] (5/325)) 1 tab Q6H PRN PO MODERATE PAIN LEVEL 4-6; Start 08/21/16 at 16:00 Morphine Sulfate (morphine) 2 mg Q4H PRN IV SEVERE PAIN LEVEL 7-10; Start 08/21 at 16:00 Docusate Sodium (Colace) 100 mg Q12H PRN PO CONSTIPATION; Start 08/21/16 at 16: 00 Magnesium Hydroxide (Milk Of Mag) 30 ml DAILY PRN PO CONSTIPATION; Start at 16:00 Sodium Biphosphate/ Sodium Phosphate (Fleet Enema) 133 ml DAILY PRN [place] CONSTIPATION; Start 08/21/16 at 16:00 Heparin Sodium (Porcine) (Heparin (5000 Units/0.5 ml)) 5,000 unit Q12 SC Last administered on 08/22/16 09:26; Admin Dose 5,000 UNIT; Start 08/21/16 at 21:00 Lorazepam (Ativan) 0.5 mg Q6H PRN IV ANXIETY Last administered on 08/22/16 09: 18; Admin Dose 0.5 MG; Start 08/21/16 at 16:00 Hydralazine HCl (Apresoline) 10 mg Q6H PRN IV ELEVATED BLOOD PRESSURE; Start at 16:00 Nitroglycerin (Nitroglycerin (Sl Tab) 0.4 Mg) 1 tab Q5M PRN SL ANGINA; Start at 16:00 Aspirin (Aspirin) 81 mg DAILY PO Last administered on 08/22/16 09:16; Admin Dose 81 MG; Start 08/22/16 at 09:00 Carvedilol (Coreg) 3.125 mg BID PO Last administered on 08/21/16 21:02; Admin Dose 3.125 MG; Start 08/21/16 at 21:00 Ranitidine HCl 150 mg 150 mg BID PRN PO EPIGASTRIC PAIN; Start 08/21/16 at 16: 00 Sodium Chloride (1/2 NS) 1,000 ml @ 50 mls/hr Q20H IV Last administered on 19:16; Admin Dose 50 MLS/HR; Start 08/21/16 at 19:00 Pantoprazole (Protonix Iv) 40 mg BID@06,18 IV Last administered on 08/22/16 05 :22; Admin Dose 40 MG; Start 08/22/16 at 06:00 Metoclopramide HCl (Reglan) 10 mg Q6H PRN IV nausea/vomiting; Start 08/21/16 at 19:00 Gwyn Paris DO August 22, 2016 12:04
--- NOTE | 2016-08-22 13:01 | RADRPT ---
Echocardiogram Report Patient Name: PHUONG WILKES Gender: Female Date: 1960 Study Date: 21-Aug-2016 Fashion Styling Intern: Allison [facility] Location: [facility] Ref. Physician: MAXX LO Quality: Adequate Procedures: Transthoracic echocardiogram with complete 2D, M-Mode, and doppler examination. Indications: Shortness of breath. 2D/M Mode Doppler Measurement Value Normal Ranges Measurement Value Normal Ranges LVIDd 2D 6.8 3.5 - 5.6 cm AV Peak Daniel 1.8 m/sec LVIDs 2D 6.1 2.1 - 4.1 cm AV Peak PG 13.5 mmHg LVPWd 2D 0.9 0.6 - 1.1 cm AI Peak PG 62.6 mmHg IVSd 2D 0.6 0.6 - 1.1 cm AI Peak Daniel 4.0 m/sec AoR Diam 2D 2.3 2.0 - 3.7 cm AI PHT 447.5 msec EDV 2D 236.1 cm3 LVOT Peak Daniel 0.5 m/sec ESV 2D 224.9 cm3 LVOT Peak PG 1.0 mmHg LA Dimen 2D 5.2 2.3 - 4.0 cm MV E Peak Daniel 1.2 m/sec MV A Peak Daniel 0.6 m/sec MV E/A 2.2 MV Decel Time 153 msec MV Decel Mccreary 8 MV E/A 2.2 TR Peak Daniel 2.9 m/sec TR Peak PG 34.1 mmHg RVSP 42.0 mmHg Findings Left Ventricle: Normal left ventricular wall thickness. Moderate enlargement of left ventricle cavity. Severe left ventricular systolic dysfunction. Ejection fraction is visually estimated at 20 %. Abnormal Diastolic Function. Right Ventricle: Normal right ventricular systolic function. Mild enlargement of right ventricle. Linear artifact in right ventricle suggestive of catheter, pacer lead, or ICD lead. Left Atrium: There is moderate enlargement of left atrium. Right Atrium: There is mild enlargement of right atrium. Mitral Valve: Mitral valve leaflets appear mildly thickened. Mild mitral valve regurgitation. Aortic Valve: Normal appearance of the aortic valve. No hemodynamically significant aortic stenosis by doppler. Mild aortic valve regurgitation. Tricuspid Valve: Normal appearance of the tricuspid valve. Estimated peak PA systolic pressure 42 mmHg. There is mild tricuspid regurgitation. Pulmonic Valve: Pulmonic valve not well visualized. There is mild pulmonic regurgitation. Pericardium: Normal pericardium with no significant pericardial effusion. Aorta: Normal aortic root. IVC: Normal size and poor respiratory collapse consistent with elevated right atrial pressure. Conclusions 1.Normal left ventricular wall thickness. Moderate enlargement of left ventricle cavity. Severe left ventricular systolic dysfunction. Ejection fraction is visually estimated at 20 %. Abnormal Diastolic Function. 2.Normal right ventricular systolic function. Mild enlargement of right ventricle. Linear artifact in right ventricle suggestive of catheter, pacer lead, or ICD lead. 3.There is moderate enlargement of left atrium. 4.There is mild enlargement of right atrium. 5.Mild mitral valve regurgitation. 6.Mild aortic valve regurgitation. No stenosis. 7.Estimated peak PA systolic pressure 42 mmHg. There is mild tricuspid regurgitation. 8.There is mild pulmonic regurgitation. 9.Normal pericardium with no significant pericardial effusion. Electronically Signed By: Gwyn Paris 22-Aug-2016 12:59:55 -0700 Patient Name: PHUONG WILKES Study Date: 21-Aug-2016 [id number]
--- NOTE | 2016-08-22 15:50 | PN ---
Date/Time of Note Date/Time of Note DATE: 08/22/16 TIME: 15:44 Assessment/Plan VTE Prophylaxis VTE Prophylaxis Intervention: SCD's Lines/Catheters IV [facility] Type (from [facility] Peripheral IV Urinary Cath still in place: No Assessment/Plan Chief Complaint/Hosp Course Problems: Assessment/Plan Assessment * Nausea /vomiting improved * History of EGD 07/19/2016 1. Hiatal hernia. Gastroesophageal reflux disease. Gastritis with erosions. Small prepyloric gastric ulcer. . Gastric mucosal biopsies were taken for Helicobacter pylori test. * History of colonoscopy 07/19/2016 . Small sigmoid colon polyp was removed using the biopsy forceps. Internal hemorrhoids. * Severe biventricular Cardiomyopathy * Acute kidney injury * Mitral and tricuspid valve regurgitation Pulmonary hypertension Plan * continue present management * Heart healthy diet * Metoclopramide 10 mg q 6 * Protonix 40 mg BID Subjective 24 Hr Interval Summary Free Text/Dictation * Course reviewed with RN * Patient seen and examined * Denies any episode of nausea or vomiting * patient wants to eat already Exam/Review of Systems Vital Signs Vitals Vital Signs Date Time Temp Pulse Resp B/P Pulse Ox O2 Delivery O2 Flow Rate FiO2 08/22/16 13:31 92 20 97 21 08/22/16 11:40 97.9 105/54 08/21/16 18:36 Room Air Exam Constitutional: alert, oriented Head: atraumatic, normocephalic Neck: non-tender, supple Respiratory: clear to auscultation, normal air movement Cardiovascular: nl pulses, regular rate and rhythm Gastrointestinal: nl liver, spleen, non-tender, soft Musculoskeletal: nl extremities to inspection, nl gait and stance Extremities: normal pulses Results Result Diagram: 08/22/16 0715 08/22/16 0715 Results 24 hrs Laboratory Tests Test 08/21/16 19:10 08/21/16 20:43 08/22/16 07:15 Lactic Acid Level 1.5 1.5 Troponin I 0.015 White Blood Count 8.7 Red Blood Count 4.60 Hemoglobin 13.1 Hematocrit 41.1 Mean Corpuscular Volume 89.3 Mean Corpuscular Hemoglobin 28.5 L Mean Corpuscular Hemoglobin Concent 31.9 L Red Cell Distribution Width 13.6 Platelet Count 226 Mean Platelet Volume 11.0 H Neutrophils % 91.8 H Lymphocytes % 5.4 L Monocytes % 2.4 Eosinophils % 0.0 Basophils % 0.1 Nucleated Red Blood Cells % 0.0 Neutrophils # 8.0 H Lymphocytes # 0.5 L Monocytes # 0.2 L Eosinophils # 0.0 Basophils # 0.0 Nucleated Red Blood Cells # 0.0 Sodium Level 132 L Potassium Level 4.5 Chloride Level 92 L Carbon Dioxide Level 27 Anion Gap 18 H Blood Urea Nitrogen 19 Creatinine 0.99 Glucose Level 116 Hemoglobin A1c 5.4 Calcium Level 9.4 Phosphorus Level 4.8 Magnesium Level 2.3 Total Bilirubin 0.8 Direct Bilirubin 0.00 Indirect Bilirubin 0.8 Aspartate Amino Transf (AST/SGOT) 67 H Alanine Aminotransferase (ALT/SGPT) 40 Alkaline Phosphatase 84 Total Protein 7.2 Albumin 4.1 Globulin 3.10 Albumin/Globulin Ratio 1.32 Triglycerides Level 56 Cholesterol Level 187 LDL Cholesterol, Calculated 133 HDL Cholesterol 43 Cholesterol/HDL Ratio 4.3 Thyroid Stimulating Hormone (TSH) 0.086 L Medications Medications Current Medications Ondansetron HCl (Zofran Inj) 4 mg Q6H PRN IV NAUSEA AND/OR VOMITING; Start at 16:00 Acetaminophen (Tylenol Tab) 650 mg Q6H PRN PO PAIN LEVEL 1-3 OR FEVER; Start at 16:00 Acetaminophen/ Hydrocodone Bitart ([place] (5/325)) 1 tab Q6H PRN PO MODERATE PAIN LEVEL 4-6; Start 08/21/16 at 16:00 Morphine Sulfate (morphine) 2 mg Q4H PRN IV SEVERE PAIN LEVEL 7-10; Start 08/21 at 16:00 Docusate Sodium (Colace) 100 mg Q12H PRN PO CONSTIPATION; Start 08/21/16 at 16: 00 Magnesium Hydroxide (Milk Of Mag) 30 ml DAILY PRN PO CONSTIPATION; Start at 16:00 Sodium Biphosphate/ Sodium Phosphate (Fleet Enema) 133 ml DAILY PRN [place] CONSTIPATION; Start 08/21/16 at 16:00 Heparin Sodium (Porcine) (Heparin (5000 Units/0.5 ml)) 5,000 unit Q12 SC Last administered on 08/22/16 09:26; Admin Dose 5,000 UNIT; Start 08/21/16 at 21:00 Lorazepam (Ativan) 0.5 mg Q6H PRN IV ANXIETY Last administered on 08/22/16 09: 18; Admin Dose 0.5 MG; Start 08/21/16 at 16:00 Hydralazine HCl (Apresoline) 10 mg Q6H PRN IV ELEVATED BLOOD PRESSURE; Start at 16:00 Nitroglycerin (Nitroglycerin (Sl Tab) 0.4 Mg) 1 tab Q5M PRN SL ANGINA; Start at 16:00 Aspirin (Aspirin) 81 mg DAILY PO Last administered on 08/22/16 09:16; Admin Dose 81 MG; Start 08/22/16 at 09:00 Carvedilol (Coreg) 3.125 mg BID PO Last administered on 08/21/16 21:02; Admin Dose 3.125 MG; Start 08/21/16 at 21:00 Ranitidine HCl 150 mg 150 mg BID PRN PO EPIGASTRIC PAIN; Start 08/21/16 at 16: 00 Sodium Chloride (1/2 NS) 1,000 ml @ 50 mls/hr Q20H IV Last administered on 11:59; Admin Dose 50 MLS/HR; Start 08/21/16 at 19:00 Pantoprazole (Protonix Iv) 40 mg BID@06,18 IV Last administered on 08/22/16 05 :22; Admin Dose 40 MG; Start 08/22/16 at 06:00 Metoclopramide HCl (Reglan) 10 mg Q6H PRN IV nausea/vomiting; Start 08/21/16 at 19:00 NIKA SPENCE MD August 22, 2016 15:50
[2016-08-22] MEDS: DOCUSATE SODIUM 100 MG CAP PO SCH (17:31)
[2016-08-22] MEDS: RANITIDINE 150 MG TAB PO SCH (21:11)
--- NOTE | 2016-08-22 23:34 | CONS ---
Date/Time of Note Date/Time of Note DATE: 08/22/16 TIME: 23:32 Assessment/Plan Assessment/Plan Chief Complaint/Hosp Course [id number] renalA/P WILEY COPD ASHD PRE RENAL AZOTEMIA better PLAN LYTES MILD HYDRATION W IV ck labs Problems: Consultation Date/Type/Reason Admit Date/Time August 21, 2016 at 18:07 Initial Consult Date 08/21/16 Type of Consultation: renal Referring Provider: MAXX LO 24 HR Interval Summary Constitutional: no complaints Exam/Review of Systems Vital Signs Vitals Vital Signs Date Time Temp Pulse Resp B/P Pulse Ox O2 Delivery O2 Flow Rate FiO2 08/22/16 20:15 74 08/22/16 20:06 20 99 21 08/22/16 20:00 98.2 114/61 08/21/16 18:36 Room Air Exam Neck: supple Respiratory: diminished breath sounds Cardiovascular: regular rate and rhythm Gastrointestinal: bowel sounds, soft Extremities: No edema Results Result Diagram: 08/22/16 0715 08/22/16 0715 Results 24 hrs Laboratory Tests Test 08/22/16 07:15 White Blood Count 8.7 Red Blood Count 4.60 Hemoglobin 13.1 Hematocrit 41.1 Mean Corpuscular Volume 89.3 Mean Corpuscular Hemoglobin 28.5 L Mean Corpuscular Hemoglobin Concent 31.9 L Red Cell Distribution Width 13.6 Platelet Count 226 Mean Platelet Volume 11.0 H Neutrophils % 91.8 H Lymphocytes % 5.4 L Monocytes % 2.4 Eosinophils % 0.0 Basophils % 0.1 Nucleated Red Blood Cells % 0.0 Neutrophils # 8.0 H Lymphocytes # 0.5 L Monocytes # 0.2 L Eosinophils # 0.0 Basophils # 0.0 Nucleated Red Blood Cells # 0.0 Sodium Level 132 L Potassium Level 4.5 Chloride Level 92 L Carbon Dioxide Level 27 Anion Gap 18 H Blood Urea Nitrogen 19 Creatinine 0.99 Glucose Level 116 Hemoglobin A1c 5.4 Calcium Level 9.4 Phosphorus Level 4.8 Magnesium Level 2.3 Total Bilirubin 0.8 Direct Bilirubin 0.00 Indirect Bilirubin 0.8 Aspartate Amino Transf (AST/SGOT) 67 H Alanine Aminotransferase (ALT/SGPT) 40 Alkaline Phosphatase 84 Total Protein 7.2 Albumin 4.1 Globulin 3.10 Albumin/Globulin Ratio 1.32 Triglycerides Level 56 Cholesterol Level 187 LDL Cholesterol, Calculated 133 HDL Cholesterol 43 Cholesterol/HDL Ratio 4.3 Thyroid Stimulating Hormone (TSH) 0.086 L Medications Medications Current Medications Ondansetron HCl (Zofran Inj) 4 mg Q6H PRN IV NAUSEA AND/OR VOMITING; Start at 16:00 Acetaminophen (Tylenol Tab) 650 mg Q6H PRN PO PAIN LEVEL 1-3 OR FEVER; Start at 16:00 Acetaminophen/ Hydrocodone Bitart ([place] (5/325)) 1 tab Q6H PRN PO MODERATE PAIN LEVEL 4-6; Start 08/21/16 at 16:00 Morphine Sulfate (morphine) 2 mg Q4H PRN IV SEVERE PAIN LEVEL 7-10; Start 08/21 at 16:00 Magnesium Hydroxide (Milk Of Mag) 30 ml DAILY PRN PO CONSTIPATION; Start at 16:00 Sodium Biphosphate/ Sodium Phosphate (Fleet Enema) 133 ml DAILY PRN [place] CONSTIPATION; Start 08/21/16 at 16:00 Heparin Sodium (Porcine) (Heparin (5000 Units/0.5 ml)) 5,000 unit Q12 SC Last administered on 08/22/16 21:15; Admin Dose 5,000 UNIT; Start 08/21/16 at 21:00 Lorazepam (Ativan) 0.5 mg Q6H PRN IV ANXIETY Last administered on 08/22/16 17: 54; Admin Dose 0.5 MG; Start 08/21/16 at 16:00 Hydralazine HCl (Apresoline) 10 mg Q6H PRN IV ELEVATED BLOOD PRESSURE; Start at 16:00 Nitroglycerin (Nitroglycerin (Sl Tab) 0.4 Mg) 1 tab Q5M PRN SL ANGINA; Start at 16:00 Aspirin (Aspirin) 81 mg DAILY PO Last administered on 08/22/16 09:16; Admin Dose 81 MG; Start 08/22/16 at 09:00 Carvedilol 3.125 mg 3.125 mg BID PO Last administered on 08/22/16 21:10; Admin Dose 3.125 MG; Start 08/21/16 at 21:00 Sodium Chloride (1/2 NS) 1,000 ml @ 50 mls/hr Q20H IV Last administered on 11:59; Admin Dose 50 MLS/HR; Start 08/21/16 at 19:00 Pantoprazole (Protonix Iv) 40 mg BID@06,18 IV Last administered on 08/22/16 17 :31; Admin Dose 40 MG; Start 08/22/16 at 06:00 Metoclopramide HCl (Reglan) 10 mg Q6H PRN IV nausea/vomiting; Start 08/21/16 at 19:00 Docusate Sodium (Colace) 100 mg Q12H PO Last administered on 08/22/16 17:31; Admin Dose 100 MG; Start 08/22/16 at 16:00 Ranitidine HCl (Zantac) 150 mg BID PO Last administered on 08/22/16 21:11; Admin Dose 150 MG; Start 08/22/16 at 21:00 LAURA ALMEIDA MD August 22, 2016 23:34
[2016-08-23] VITALS (11 sets, daily range): BP systolic 92–106; BP diastolic 55–65; PULSE 69–127; RESP 16–20
[2016-08-23] MEDS: ALBUTEROL/IPRATROPIUM (NEB) 3 ML AMP HHN SCH ×4 (01:43→21:15)
--- NOTE | 2016-08-23 03:22 | CONS ---
DATE OF ADMISSION: 08/21/2016 DATE OF CONSULTATION: TYPE OF CONSULTATION: Nephrology. Thank you, Dr. Limon, for kindly asking me to see in consultation. HISTORY OF PRESENT ILLNESS: The patient is a 56-year-old female who presented to this hospital with history of COPD, CHF, hypertension, history of pacemaker placement, complaining of chest pain, shor tness of breath, noted to have electrolyte imbalance, so nephrology consultation was requested. PAST MEDICAL HISTORY: Positive for CHF, hypertension, chronic nonischemic cardiomyopathy, ejection fraction 20%, mitral and tricuspid regurgitation, pulmonary hypertension. ALLERGY HISTORY: NEGATIVE. FAMILY HISTORY: Negative. SOCIAL HISTORY: Denies. MEDICATION HISTORY: Listed includes the patient is on 1. Aspirin. 2. Coreg. 3. Lasix. 4. Lisinopril. 5. Reglan. 6. Zofran. 7. Ranitidine. 8. Aldactone. REVIEW OF SYSTEMS: CHEST: Unremarkable except for chest pain, short of breath occasionally. ABDOMEN: Unremarkable. EXTREMITIES: Unremarkable. CENTRAL NERVOUS SYSTEM: Unremarkable. PHYSICAL EXAMINATION: GENERAL: The patient is awake and alert. VITAL SIGNS: Pulse 72, blood pressure 140/61. HEAD: Atraumatic, normocephalic. Pupils equal, reactive to light. NECK: Supple. LUNGS: Few rhonchi noted at bases. CARDIOVASCULAR: S1, S2 normal. ABDOMEN: Soft, nontender. Bowel sounds present. No palpable mass. EXTREMITIES: No cyanosis, clubbing, or edema. CENTRAL NERVOUS SYSTEM: The patient is awake, alert, no focal deficit. LABORATORY DATA: Sodium 132, potassium 4.5. Earlier, the patient's BUN 16, creatinine 1.49. IMPRESSION: 1. The patient has acute kidney injury. 2. Mild prerenal azotemia, possibly due to diuretic. 3. Hyponatremia. 4. History of hypertension. 5. History of chronic obstructive pulmonary disease. 6. History of congestive heart failure. 7. History of decreased ejection fraction. PLAN: To obtain electrolytes. The patient will be given gentle IV fluid, and once the patient is b ack to her euvolemic state, IV will be discontinued. Thank you, Dr. Limon, for kindly asking me to see this patient in nephrology consultation. Dictated By: LAURA MICHAEL/CHRISTIANO Conf#: [id number] [facility]#: [id number]
[2016-08-23] MEDS: PANTOPRAZOLE 40 MG INJ IV SCH ×2 (05:35→16:44)
[2016-08-23] MEDS: DOCUSATE SODIUM 100 MG CAP PO SCH ×2 (05:35→16:41)
[2016-08-23] MEDS: RANITIDINE 150 MG TAB PO SCH (09:23)
[2016-08-23] MEDS: ASPIRIN 81 MG TAB PO SCH (09:23)
[2016-08-23] MEDS: LORAZEPAM 2 MG INJ IV PRN ×2 (09:26→21:21)
[2016-08-23] MEDS: HEPARIN 5,000 UNIT/0.5 ML VIAL SC SCH ×2 (09:33→21:35)
--- NOTE | 2016-08-23 11:13 | CONS ---
Date/Time of Note Date/Time of Note DATE: 08/23/16 TIME: 11:10 Assessment/Plan Assessment/Plan Additional Assessment/Plan Nausea and vomiting Acute kidney injury Severe cardiomyopathy with ejection fraction less than 20% Mitral and tricuspid valve regurgitation Pulmonary hypertension -Progressively feeling better. Awaiting laboratory studies from today regarding renal function. If remains stable, would consider restarting low- dose maintenance diuretics as blood pressure permits. Otherwise management as per our GI colleagues. Consultation Date/Type/Reason Admit Date/Time August 21, 2016 at 18:07 Initial Consult Date 08/21/16 Type of Consultation: cv Referring Provider: MAXX LO 24 HR Interval Summary Free Text/Dictation Feeling better today. Denies nausea or vomiting or shortness of breath or chest pain. Complaining of fatigue Exam/Review of Systems Vital Signs Vitals Vital Signs Date Time Temp Pulse Resp B/P Pulse Ox O2 Delivery O2 Flow Rate FiO2 08/23/16 09:29 127 08/23/16 08:29 18 96 21 08/23/16 07:25 97.9 99/65 08/21/16 18:36 Room Air Intake and Output 08/22/16 08/22/16 08/23/16 15:00 23:00 07:00 Intake Total 1100 ml 1200 ml Balance 1100 ml 1200 ml Exam Sitting in chair, no apparent distress Constitutional: alert, obese, oriented Head: normocephalic Neck: supple Respiratory: clear to auscultation, normal air movement Cardiovascular: other (S1-S2 heard), regular rate and rhythm, systolic murmur Gastrointestinal: bowel sounds, non-tender, other (No guarding), soft Extremities: other (No edema or cyanosis) Results Result Diagram: 08/22/16 0715 08/22/16 0715 Medications Medications Current Medications Ondansetron HCl (Zofran Inj) 4 mg Q6H PRN IV NAUSEA AND/OR VOMITING; Start at 16:00 Acetaminophen (Tylenol Tab) 650 mg Q6H PRN PO PAIN LEVEL 1-3 OR FEVER; Start at 16:00 Acetaminophen/ Hydrocodone Bitart ([place] (5/325)) 1 tab Q6H PRN PO MODERATE PAIN LEVEL 4-6; Start 08/21/16 at 16:00 Morphine Sulfate (morphine) 2 mg Q4H PRN IV SEVERE PAIN LEVEL 7-10; Start 08/21 at 16:00 Magnesium Hydroxide (Milk Of Mag) 30 ml DAILY PRN PO CONSTIPATION; Start at 16:00 Sodium Biphosphate/ Sodium Phosphate (Fleet Enema) 133 ml DAILY PRN [place] CONSTIPATION; Start 08/21/16 at 16:00 Heparin Sodium (Porcine) (Heparin (5000 Units/0.5 ml)) 5,000 unit Q12 SC Last administered on 08/23/16 09:33; Admin Dose 5,000 UNIT; Start 08/21/16 at 21:00 Lorazepam (Ativan) 0.5 mg Q6H PRN IV ANXIETY Last administered on 08/23/16 09: 26; Admin Dose 0.5 MG; Start 08/21/16 at 16:00 Hydralazine HCl (Apresoline) 10 mg Q6H PRN IV ELEVATED BLOOD PRESSURE; Start at 16:00 Nitroglycerin (Nitroglycerin (Sl Tab) 0.4 Mg) 1 tab Q5M PRN SL ANGINA; Start at 16:00 Aspirin (Aspirin) 81 mg DAILY PO Last administered on 08/23/16 09:23; Admin Dose 81 MG; Start 08/22/16 at 09:00 Carvedilol 3.125 mg 3.125 mg BID PO Last administered on 08/23/16 09:25; Admin Dose 3.125 MG; Start 08/21/16 at 21:00 Sodium Chloride (1/2 NS) 1,000 ml @ 20 mls/hr Q24H IV Last administered on 11:59; Admin Dose 50 MLS/HR; Start 08/21/16 at 19:00 Pantoprazole (Protonix Iv) 40 mg BID@06,18 IV Last administered on 08/23/16 05 :35; Admin Dose 40 MG; Start 08/22/16 at 06:00 Metoclopramide HCl (Reglan) 10 mg Q6H PRN IV nausea/vomiting; Start 08/21/16 at 19:00 Docusate Sodium (Colace) 100 mg Q12H PO Last administered on 08/23/16 05:35; Admin Dose 100 MG; Start 08/22/16 at 16:00 Ranitidine HCl (Zantac) 150 mg BID PO Last administered on 08/23/16t 09:23; Admin Dose 150 MG; Start 08/22/16 at 21:00 Gwyn Paris DO August 23, 2016 11:13
[2016-08-23 12:01] LABS: ADD SCAN DIFF NO
[2016-08-23 12:12] LABS: BASOPHILS % 0.1 % (0.0-2.0); EOSINOPHILS % 0.1 % (0.0-7.0); HEMATOCRIT 37.8 % (37.0-47.0); HEMOGLOBIN 11.9 g/dl (12.0-16.0); LYMPHOCYTES # 0.8 10^3/ul (0.8-2.9); LYMPHOCYTES % 5.9 % (15.0-51.0); MEAN CORPUSCULAR HEMOGLOBIN 28.3 pg (29.0-33.0); MEAN CORPUSCULAR HGB CONC 31.5 g/dl (32.0-37.0); MEAN CORPUSCULAR VOLUME 89.8 fl (82.0-101.0); MEAN PLATELET VOLUME 10.7 fl (7.4-10.4); MONOCYTE # 1.1 10^3/ul (0.3-0.9); MONOCYTES % 7.9 % (0.0-11.0); NEUTROPHIL # 11.3 10^3/ul (1.6-7.5); NEUTROPHILS % 85.4 % (39.0-77.0); PLATELET COUNT 197 10^3/UL (140-415); RED BLOOD COUNT 4.21 10^6/ul (4.20-5.40); RED CELL DISTRIBUTION WIDTH 14.2 % (11.5-14.5); WHITE BLOOD COUNT 13.3 10^3/ul (4.8-10.8)
[2016-08-23 12:20] LABS: POTASSIUM 3.6 mmol/L (3.5-5.1)
[2016-08-23 12:23] LABS: CREATININE 0.96 mg/dl (0.44-1.00)
[2016-08-23 12:24] LABS: CALCIUM 8.9 mg/dl (8.4-10.2)
[2016-08-23] MEDS: SOD CHLORIDE 0.45% 1,000 ML IV SCH (14:30)
--- NOTE | 2016-08-23 14:50 | PN ---
Date/Time of Note Date/Time of Note DATE: 08/23/16 TIME: 14:48 Assessment/Plan VTE Prophylaxis VTE Prophylaxis Intervention: ambulation Lines/Catheters IV [facility] (from [facility] Peripheral IV Urinary Cath still in place: No Assessment/Plan Chief Complaint/Hosp Course Problems: Assessment/Plan Assessment * Nausea /vomiting improved * History of EGD 07/19/2016 1. Hiatal hernia. Gastroesophageal reflux disease. Gastritis with erosions. Small prepyloric gastric ulcer. . Gastric mucosal biopsies were taken for Helicobacter pylori test. * History of colonoscopy 07/19/2016 . Small sigmoid colon polyp was removed using the biopsy forceps. Internal hemorrhoids. * Severe biventricular Cardiomyopathy * Acute kidney injury * Mitral and tricuspid valve regurgitation Pulmonary hypertension Plan * continue present management * Heart healthy diet * Metoclopramide 10 mg q 6 * Protonix 40 mg BID Subjective 24 Hr Interval Summary Free Text/Dictation * Course reviewed with RN * Patient seen and examined * No nausea nor vomiting * Tolerating diet Exam/Review of Systems Vital Signs Vitals Vital Signs Date Time Temp Pulse Resp B/P Pulse Ox O2 Delivery O2 Flow Rate FiO2 08/23/16 14:25 71 18 97 21 08/23/16 11:24 98.0 92/56 08/21/16 18:36 Room Air Intake and Output 08/22/16 08/22/16 08/23/16 15:00 23:00 07:00 Intake Total 1100 ml 1200 ml Balance 1100 ml 1200 ml Exam Constitutional: alert, oriented Eyes: nl conjunctiva, nl sclera Neck: non-tender, supple Respiratory: clear to auscultation, normal air movement Cardiovascular: nl pulses, regular rate and rhythm Gastrointestinal: nl liver, spleen, non-tender, soft Musculoskeletal: nl extremities to inspection, nl gait and stance Results Result Diagram: 08/23/16 1126 08/23/16 1126 Results 24 hrs Laboratory Tests Test 08/23/16 11:26 White Blood Count 13.3 #H Red Blood Count 4.21 Hemoglobin 11.9 L Hematocrit 37.8 Mean Corpuscular Volume 89.8 Mean Corpuscular Hemoglobin 28.3 L Mean Corpuscular Hemoglobin Concent 31.5 L Red Cell Distribution Width 14.2 Platelet Count 197 Mean Platelet Volume 10.7 H Neutrophils % 85.4 H Lymphocytes % 5.9 L Monocytes % 7.9 Eosinophils % 0.1 Basophils % 0.1 Nucleated Red Blood Cells % 0.0 Neutrophils # 11.3 H Lymphocytes # 0.8 Monocytes # 1.1 H Eosinophils # 0.0 Basophils # 0.0 Nucleated Red Blood Cells # 0.0 Sodium Level 132 L Potassium Level 3.6 Chloride Level 93 L Carbon Dioxide Level 29 Anion Gap 14 Blood Urea Nitrogen 21 H Creatinine 0.96 Glucose Level 116 Calcium Level 8.9 Magnesium Level 2.4 Medications Medications Current Medications Ondansetron HCl (Zofran Inj) 4 mg Q6H PRN IV NAUSEA AND/OR VOMITING; Start at 16:00 Acetaminophen (Tylenol Tab) 650 mg Q6H PRN PO PAIN LEVEL 1-3 OR FEVER; Start at 16:00 Acetaminophen/ Hydrocodone Bitart ([place] (5/325)) 1 tab Q6H PRN PO MODERATE PAIN LEVEL 4-6; Start 08/21/16 at 16:00 Morphine Sulfate (morphine) 2 mg Q4H PRN IV SEVERE PAIN LEVEL 7-10; Start 08/21 at 16:00 Magnesium Hydroxide (Milk Of Mag) 30 ml DAILY PRN PO CONSTIPATION; Start at 16:00 Sodium Biphosphate/ Sodium Phosphate (Fleet Enema) 133 ml DAILY PRN [place] CONSTIPATION; Start 08/21/16 at 16:00 Heparin Sodium (Porcine) (Heparin (5000 Units/0.5 ml)) 5,000 unit Q12 SC Last administered on 08/23/16 09:33; Admin Dose 5,000 UNIT; Start 08/21/16 at 21:00 Lorazepam (Ativan) 0.5 mg Q6H PRN IV ANXIETY Last administered on 08/23/16 09: 26; Admin Dose 0.5 MG; Start 08/21/16 at 16:00 Hydralazine HCl (Apresoline) 10 mg Q6H PRN IV ELEVATED BLOOD PRESSURE; Start at 16:00 Nitroglycerin (Nitroglycerin (Sl Tab) 0.4 Mg) 1 tab Q5M PRN SL ANGINA; Start at 16:00 Aspirin (Aspirin) 81 mg DAILY PO Last administered on 08/23/16 09:23; Admin Dose 81 MG; Start 08/22/16 at 09:00 Carvedilol 3.125 mg 3.125 mg BID PO Last administered on 08/23/16 09:25; Admin Dose 3.125 MG; Start 08/21/16 at 21:00 Sodium Chloride (1/2 NS) 1,000 ml @ 20 mls/hr Q24H IV Last administered on 14:30; Admin Dose 20 MLS/HR; Start 08/21/16 at 19:00 Pantoprazole (Protonix Iv) 40 mg BID@06,18 IV Last administered on 08/23/16 05 :35; Admin Dose 40 MG; Start 08/22/16 at 06:00 Metoclopramide HCl (Reglan) 10 mg Q6H PRN IV nausea/vomiting; Start 08/21/16 at 19:00 Docusate Sodium (Colace) 100 mg Q12H PO Last administered on 08/23/16 05:35; Admin Dose 100 MG; Start 08/22/16 at 16:00 Ranitidine HCl (Zantac) 150 mg BID PO Last administered on 08/23/16 09:23; Admin Dose 150 MG; Start 08/22/16 at 21:00 NIKA SPENCE MD August 23, 2016 14:50
[2016-08-23] MEDS: MAGNESIUM HYDROXIDE 30ML CUP PO PRN (16:41)
--- NOTE | 2016-08-23 22:33 | CONS ---
Date/Time of Note Date/Time of Note DATE: 08/23/16 TIME: 22:32 Assessment/Plan Assessment/Plan Chief Complaint/Hosp Course renalA/P WILEY better COPD ASHD PRE RENAL AZOTEMIA better PLAN LYTES MILD HYDRATION W IV ck labs Problems: Consultation Date/Type/Reason Admit Date/Time August 21, 2016 at 18:07 Initial Consult Date 08/21/16 Type of Consultation: renal Referring Provider: MAXX LO 24 HR Interval Summary Constitutional: no complaints Exam/Review of Systems Vital Signs Vitals Vital Signs Date Time Temp Pulse Resp B/P Pulse Ox O2 Delivery O2 Flow Rate FiO2 08/23/16 21:16 69 18 100 21 08/23/16 20:13 97.7 104/63 08/21/16 18:36 Room Air Intake and Output 08/22/16 08/22/16 08/23/16 15:00 23:00 07:00 Intake Total 1100 ml 1200 ml Balance 1100 ml 1200 ml Exam Neck: supple Respiratory: clear to auscultation Cardiovascular: regular rate and rhythm Gastrointestinal: soft Results Result Diagram: 08/23/16 1126 08/23/16 1126 Results 24 hrs Laboratory Tests Test 08/23/16 11:26 White Blood Count 13.3 #H Red Blood Count 4.21 Hemoglobin 11.9 L Hematocrit 37.8 Mean Corpuscular Volume 89.8 Mean Corpuscular Hemoglobin 28.3 L Mean Corpuscular Hemoglobin Concent 31.5 L Red Cell Distribution Width 14.2 Platelet Count 197 Mean Platelet Volume 10.7 H Neutrophils % 85.4 H Lymphocytes % 5.9 L Monocytes % 7.9 Eosinophils % 0.1 Basophils % 0.1 Nucleated Red Blood Cells % 0.0 Neutrophils # 11.3 H Lymphocytes # 0.8 Monocytes # 1.1 H Eosinophils # 0.0 Basophils # 0.0 Nucleated Red Blood Cells # 0.0 Sodium Level 132 L Potassium Level 3.6 Chloride Level 93 L Carbon Dioxide Level 29 Anion Gap 14 Blood Urea Nitrogen 21 H Creatinine 0.96 Glucose Level 116 Calcium Level 8.9 Magnesium Level 2.4 Medications Medications Current Medications Ondansetron HCl (Zofran Inj) 4 mg Q6H PRN IV NAUSEA AND/OR VOMITING; Start at 16:00 Acetaminophen (Tylenol Tab) 650 mg Q6H PRN PO PAIN LEVEL 1-3 OR FEVER; Start at 16:00 Acetaminophen/ Hydrocodone Bitart ([place] (5/325)) 1 tab Q6H PRN PO MODERATE PAIN LEVEL 4-6; Start 08/21/16 at 16:00 Morphine Sulfate (morphine) 2 mg Q4H PRN IV SEVERE PAIN LEVEL 7-10; Start 08/21 at 16:00 Magnesium Hydroxide (Milk Of Mag) 30 ml DAILY PRN PO CONSTIPATION Last administered on 08/23/16 16:41; Admin Dose 30 ML; Start 08/21/16 at 16:00 Sodium Biphosphate/ Sodium Phosphate (Fleet Enema) 133 ml DAILY PRN [place] CONSTIPATION; Start 08/21/16 at 16:00 Heparin Sodium (Porcine) (Heparin (5000 Units/0.5 ml)) 5,000 unit Q12 SC Last administered on 08/23/16 21:35; Admin Dose 5,000 UNIT; Start 08/21/16 at 21:00 Lorazepam (Ativan) 0.5 mg Q6H PRN IV ANXIETY Last administered on 08/23/16 21: 21; Admin Dose 0.5 MG; Start 08/21/16 at 16:00 Hydralazine HCl (Apresoline) 10 mg Q6H PRN IV ELEVATED BLOOD PRESSURE; Start at 16:00 Nitroglycerin (Nitroglycerin (Sl Tab) 0.4 Mg) 1 tab Q5M PRN SL ANGINA; Start at 16:00 Aspirin (Aspirin) 81 mg DAILY PO Last administered on 08/23/16 09:23; Admin Dose 81 MG; Start 08/22/16 at 09:00 Carvedilol 3.125 mg 3.125 mg BID PO Last administered on 08/23/16 21:21; Admin Dose 3.125 MG; Start 08/21/16 at 21:00 Sodium Chloride (1/2 NS) 1,000 ml @ 20 mls/hr Q24H IV Last administered on 14:30; Admin Dose 20 MLS/HR; Start 08/21/16 at 19:00 Pantoprazole (Protonix Iv) 40 mg BID@06,18 IV Last administered on 08/23/16 16 :44; Admin Dose 40 MG; Start 08/22/16 at 06:00 Metoclopramide HCl (Reglan) 10 mg Q6H PRN IV nausea/vomiting; Start 08/21/16 at 19:00 Docusate Sodium (Colace) 100 mg Q12H PO Last administered on 08/23/16t 16:41; Admin Dose 100 MG; Start 08/22/16 at 16:00 Furosemide (Lasix) 20 mg DAILY PO ; Start 08/24/16 at 09:00 LAURA ALMEIDA MD August 23, 2016 22:33
[2016-08-24 00:14] VITALS: BP 99/54; RESP 20
[2016-08-24] MEDS: ALBUTEROL/IPRATROPIUM (NEB) 3 ML AMP HHN SCH ×4 (02:47→20:21)
[2016-08-24 04:06] VITALS: BP 101/57; RESP 20
[2016-08-24] MEDS: DOCUSATE SODIUM 100 MG CAP PO SCH ×2 (06:09→15:56)
[2016-08-24] MEDS: PANTOPRAZOLE 40 MG INJ IV SCH ×2 (06:09→18:18)
[2016-08-24 07:23] VITALS: BP 104/56; RESP 18
[2016-08-24] MEDS: ASPIRIN 81 MG TAB PO SCH (08:31)
[2016-08-24] MEDS: HEPARIN 5,000 UNIT/0.5 ML VIAL SC SCH ×2 (08:44→21:05)
[2016-08-24] MEDS ORDERED: FUROSEMIDE 20 MG TAB PO SCH (09:00)
--- NOTE | 2016-08-24 09:30 | EN ---
Date/Time of Note Date/Time of Note DATE: 08/24/16 TIME: 09:28 Event Note Medicine Medicine Event Note PROGRESS NOTE DATE OF SERVICE: SUBJECTIVE: Patient improved but very lethargic OBJECTIVE: Vitals Vital Signs Date Time Temp Pulse Resp B/P Pulse Ox O2 Delivery O2 Flow Rate FiO2 08/23/16 09:29 127 08/23/16 08:29 18 96 21 08/23/16 07:25 97.9 99/65 08/21/16 18:36 Room Air Intake and Output 08/22/16 08/22/16 08/23/16 15:00 23:00 07:00 Intake Total 1100 ml 1200 ml Balance 1100 ml 1200 ml Exam Sitting in chair, no apparent distress Constitutional: alert, obese, oriented Head: normocephalic Neck: supple Respiratory: clear to auscultation, normal air movement Cardiovascular: other (S1-S2 heard), regular rate and rhythm, systolic murmur Gastrointestinal: bowel sounds, non-tender, other (No guarding), soft Extremities: other (No edema or cyanosis) Results Result Diagram: 08/22/1615 08/22/1615 Medications Medications Current Medications Ondansetron HCl (Zofran Inj) 4 mg Q6H PRN IV NAUSEA AND/OR VOMITING; Start at 16:00 Acetaminophen (Tylenol Tab) 650 mg Q6H PRN PO PAIN LEVEL 1-3 OR FEVER; Start at 16:00 Acetaminophen/ Hydrocodone Bitart ([place] (5/325)) 1 tab Q6H PRN PO MODERATE PAIN LEVEL 4-6; Start 08/21/16 at 16:00 Morphine Sulfate (morphine) 2 mg Q4H PRN IV SEVERE PAIN LEVEL 7-10; Start 08/21 at 16:00 Magnesium Hydroxide (Milk Of Mag) 30 ml DAILY PRN PO CONSTIPATION; Start at 16:00 Sodium Biphosphate/ Sodium Phosphate (Fleet Enema) 133 ml DAILY PRN [place] CONSTIPATION; Start 08/21/16 at 16:00 Heparin Sodium (Porcine) (Heparin (5000 Units/0.5 ml)) 5,000 unit Q12 SC Last administered on 08/23/16t 09:33; Admin Dose 5,000 UNIT; Start 08/21/16 at 21:00 Lorazepam (Ativan) 0.5 mg Q6H PRN IV ANXIETY Last administered on 08/23/16 09: 26; Admin Dose 0.5 MG; Start 08/21/16 at 16:00 Hydralazine HCl (Apresoline) 10 mg Q6H PRN IV ELEVATED BLOOD PRESSURE; Start at 16:00 Nitroglycerin (Nitroglycerin (Sl Tab) 0.4 Mg) 1 tab Q5M PRN SL ANGINA; Start at 16:00 Aspirin (Aspirin) 81 mg DAILY PO Last administered on 08/23/16 09:23; Admin Dose 81 MG; Start 08/22/16 at 09:00 Carvedilol 3.125 mg 3.125 mg BID PO Last administered on 08/23/16 09:25; Admin Dose 3.125 MG; Start 08/21/16 at 21:00 Sodium Chloride (1/2 NS) 1,000 ml @ 20 mls/hr Q24H IV Last administered on 11:59; Admin Dose 50 MLS/HR; Start 08/21/16 at 19:00 Pantoprazole (Protonix Iv) 40 mg BID@06,18 IV Last administered on 08/23/16 05 :35; Admin Dose 40 MG; Start 08/22/16 at 06:00 Metoclopramide HCl (Reglan) 10 mg Q6H PRN IV nausea/vomiting; Start 08/21/16 at 19:00 Docusate Sodium (Colace) 100 mg Q12H PO Last administered on 08/23/16 05:35; Admin Dose 100 MG; Start 08/22/16 at 16:00 Ranitidine HCl (Zantac) 150 mg BID PO Last administered on 08/23/16 09:23; Admin Dose 150 MG; Start 08/22/16 at 21:00 Assessment/Plan A 56-year-old female coming in with SOB associated with some nausea and vomiting : 1. Reactive airway disease: improved 2. 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 Mitral and tricuspid valve regurgitation 4. Pulmonary hypertension 5. No active CHF 6. WILEY PLAN: * continue current regimen, patient is improving, still quite lethargic, encouraged to ambulate. d/c tomorrow * Gastrointestinal prophylaxis, H2 luis e. * Deep venous thrombosis prophylaxis, heparin subcutaneously. LORENZO MENDES. August 24, 2016 09:30
[2016-08-24 10:00] LABS: ADD SCAN DIFF NO
[2016-08-24 10:06] LABS: BASOPHILS % 0.1 % (0.0-2.0); EOSINOPHILS # 0.1 10^3/ul (0.0-0.5); EOSINOPHILS % 1.2 % (0.0-7.0); HEMATOCRIT 40.4 % (37.0-47.0); HEMOGLOBIN 12.6 g/dl (12.0-16.0); LYMPHOCYTES % 15.3 % (15.0-51.0); MEAN CORPUSCULAR HEMOGLOBIN 28.5 pg (29.0-33.0); MEAN CORPUSCULAR HGB CONC 31.2 g/dl (32.0-37.0); MEAN CORPUSCULAR VOLUME 91.4 fl (82.0-101.0); MEAN PLATELET VOLUME 10.6 fl (7.4-10.4); MONOCYTE # 0.7 10^3/ul (0.3-0.9); NEUTROPHIL # 4.9 10^3/ul (1.6-7.5); NEUTROPHILS % 72.3 % (39.0-77.0); PLATELET COUNT 205 10^3/UL (140-415); RED BLOOD COUNT 4.42 10^6/ul (4.20-5.40); WHITE BLOOD COUNT 6.7 10^3/ul (4.8-10.8)
[2016-08-24 10:24] LABS: CALCIUM 9.3 mg/dl (8.4-10.2); CREATININE 1.08 mg/dl (0.44-1.00); POTASSIUM 4.1 mmol/L (3.5-5.1)
--- NOTE | 2016-08-24 10:25 | CONS ---
Date/Time of Note Date/Time of Note DATE: 08/24/16 TIME: 10:22 Assessment/Plan Assessment/Plan Additional Assessment/Plan Nausea and vomiting Acute kidney injury Severe cardiomyopathy with ejection fraction less than 20% Mitral and tricuspid valve regurgitation Pulmonary hypertension -Progressively feeling better. Awaiting laboratory studies from today regarding renal function. If within normal limits, restart diuretic regimen. DC planning Consultation Date/Type/Reason Admit Date/Time August 21, 2016 at 18:07 Initial Consult Date 08/21/16 Type of Consultation: cv Referring Provider: MAXX LO 24 HR Interval Summary Free Text/Dictation Denies chest pain, shortness of breath, palpitations Exam/Review of Systems Vital Signs Vitals Vital Signs Date Time Temp Pulse Resp B/P Pulse Ox O2 Delivery O2 Flow Rate FiO2 08/24/16 07:23 98.1 70 18 104/56 98 08/24/16 02:47 21 08/21/16 18:36 Room Air Intake and Output 08/23/16 08/23/16 08/24/16 15:00 23:00 07:00 Intake Total 1150 ml 400 ml Output Total 2 ml Balance 1150 ml 398 ml Exam No apparent distress Constitutional: alert, obese, oriented Head: normocephalic Respiratory: other (Coarse breath sounds bilaterally, no wheezing) Cardiovascular: other (S1-S2 heard), regular rate and rhythm Gastrointestinal: bowel sounds, non-tender, soft Extremities: other (No edema) Results Result Diagram: 08/24/16 0946 08/23/16 1126 Results 24 hrs Laboratory Tests Test 08/23/16 11:26 08/24/16 09:46 White Blood Count 13.3 #H 6.7 # Red Blood Count 4.21 4.42 Hemoglobin 11.9 L 12.6 Hematocrit 37.8 40.4 Mean Corpuscular Volume 89.8 91.4 Mean Corpuscular Hemoglobin 28.3 L 28.5 L Mean Corpuscular Hemoglobin Concent 31.5 L 31.2 L Red Cell Distribution Width 14.2 14.0 Platelet Count 197 205 Mean Platelet Volume 10.7 H 10.6 H Neutrophils % 85.4 H 72.3 Lymphocytes % 5.9 L 15.3 Monocytes % 7.9 11.0 Eosinophils % 0.1 1.2 Basophils % 0.1 0.1 Nucleated Red Blood Cells % 0.0 0.0 Neutrophils # 11.3 H 4.9 Lymphocytes # 0.8 1.0 Monocytes # 1.1 H 0.7 Eosinophils # 0.0 0.1 Basophils # 0.0 0.0 Nucleated Red Blood Cells # 0.0 0.0 Sodium Level 132 L Potassium Level 3.6 Chloride Level 93 L Carbon Dioxide Level 29 Anion Gap 14 Blood Urea Nitrogen 21 H Creatinine 0.96 Glucose Level 116 Calcium Level 8.9 Magnesium Level 2.4 Medications Medications Current Medications Ondansetron HCl (Zofran Inj) 4 mg Q6H PRN IV NAUSEA AND/OR VOMITING; Start at 16:00 Acetaminophen (Tylenol Tab) 650 mg Q6H PRN PO PAIN LEVEL 1-3 OR FEVER; Start at 16:00 Acetaminophen/ Hydrocodone Bitart ([place] (5/325)) 1 tab Q6H PRN PO MODERATE PAIN LEVEL 4-6; Start 08/21/16 at 16:00 Morphine Sulfate (morphine) 2 mg Q4H PRN IV SEVERE PAIN LEVEL 7-10; Start 08/21 at 16:00 Magnesium Hydroxide (Milk Of Mag) 30 ml DAILY PRN PO CONSTIPATION Last administered on 08/23/16 16:41; Admin Dose 30 ML; Start 08/21/16 at 16:00 Sodium Biphosphate/ Sodium Phosphate (Fleet Enema) 133 ml DAILY PRN [place] CONSTIPATION; Start 08/21/16 at 16:00 Heparin Sodium (Porcine) (Heparin (5000 Units/0.5 ml)) 5,000 unit Q12 SC Last administered on 08/24/16 08:44; Admin Dose 5,000 UNIT; Start 08/21/16 at 21:00 Lorazepam (Ativan) 0.5 mg Q6H PRN IV ANXIETY Last administered on 08/23/16 21: 21; Admin Dose 0.5 MG; Start 08/21/16 at 16:00 Hydralazine HCl (Apresoline) 10 mg Q6H PRN IV ELEVATED BLOOD PRESSURE; Start at 16:00 Nitroglycerin (Nitroglycerin (Sl Tab) 0.4 Mg) 1 tab Q5M PRN SL ANGINA; Start at 16:00 Aspirin (Aspirin) 81 mg DAILY PO Last administered on 08/24/16 08:31; Admin Dose 81 MG; Start 08/22/16 at 09:00 Carvedilol 3.125 mg 3.125 mg BID PO Last administered on 08/24/16 08:32; Admin Dose 3.125 MG; Start 08/21/16 at 21:00 Sodium Chloride (1/2 NS) 1,000 ml @ 20 mls/hr Q24H IV Last administered on 14:30; Admin Dose 20 MLS/HR; Start 08/21/16 at 19:00 Pantoprazole (Protonix Iv) 40 mg BID@06,18 IV Last administered on 08/24/16 06 :09; Admin Dose 40 MG; Start 08/22/16 at 06:00 Metoclopramide HCl (Reglan) 10 mg Q6H PRN IV nausea/vomiting; Start 08/21/16 at 19:00 Docusate Sodium (Colace) 100 mg Q12H PO Last administered on 08/24/16 06:09; Admin Dose 100 MG; Start 08/22/16 at 16:00 Furosemide (Lasix) 20 mg DAILY PO ; Start 08/24/16 at 09:00 Gwyn Paris DO August 24, 2016 10:25
[2016-08-24] MEDS: FUROSEMIDE 40 MG TAB PO SCH (11:44)
--- NOTE | 2016-08-24 11:50 | PN ---
Date/Time of Note Date/Time of Note DATE: 08/24/16 TIME: 11:46 Assessment/Plan VTE Prophylaxis VTE Prophylaxis Intervention: heparin Lines/Catheters [facility] Urinary Cath still in place: No Assessment/Plan Assessment/Plan 1. Reactive airway disease: improved 2. 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 Mitral and tricuspid valve regurgitation 4. Pulmonary hypertension 5. No active CHF 6. WILEY- improving PLAN: * continue current regimen, Cr 1.08 , still quite lethargic, continue in-house monitoring, Still wheexing, lasix has been increased from 20mg to 40mg, will follow up in AM * Gastrointestinal prophylaxis, H2 luis e. * Deep venous thrombosis prophylaxis, heparin subcutaneously. Subjective 24 Hr Interval Summary Free Text/Dictation doing ok,s till has wheezing on lung exam, BP stable,afebrile Exam/Review of Systems Vital Signs Vitals Vital Signs Date Time Temp Pulse Resp B/P Pulse Ox O2 Delivery O2 Flow Rate FiO2 08/24/16 07:23 98.1 70 18 104/56 98 08/24/16 02:47 21 08/21/16 18:36 Room Air Intake and Output 08/23/16 08/23/16 08/24/16 15:00 23:00 07:00 Intake Total 1150 ml 400 ml Output Total 2 ml Balance 1150 ml 398 ml Exam No apparent distress Constitutional: alert, obese, oriented Head: normocephalic Respiratory: Bilateral Basilar wheezing+ Cardiovascular: other (S1-S2 heard), regular rate and rhythm Gastrointestinal: bowel sounds, non-tender, soft Extremities: other (No edema) Results Result Diagram: 08/24/1646 08/24/16 0946 Results 24 hrs Laboratory Tests Test 08/24/16 09:40 08/24/16 09:46 Magnesium Level 2.4 White Blood Count 6.7 # Red Blood Count 4.42 Hemoglobin 12.6 Hematocrit 40.4 Mean Corpuscular Volume 91.4 Mean Corpuscular Hemoglobin 28.5 L Mean Corpuscular Hemoglobin Concent 31.2 L Red Cell Distribution Width 14.0 Platelet Count 205 Mean Platelet Volume 10.6 H Neutrophils % 72.3 Lymphocytes % 15.3 Monocytes % 11.0 Eosinophils % 1.2 Basophils % 0.1 Nucleated Red Blood Cells % 0.0 Neutrophils # 4.9 Lymphocytes # 1.0 Monocytes # 0.7 Eosinophils # 0.1 Basophils # 0.0 Nucleated Red Blood Cells # 0.0 Sodium Level 133 L Potassium Level 4.1 Chloride Level 97 Carbon Dioxide Level 31 Anion Gap 9 # Blood Urea Nitrogen 16 Creatinine 1.08 H Glucose Level 91 Calcium Level 9.3 Medications Medications Current Medications Ondansetron HCl (Zofran Inj) 4 mg Q6H PRN IV NAUSEA AND/OR VOMITING; Start at 16:00 Acetaminophen (Tylenol Tab) 650 mg Q6H PRN PO PAIN LEVEL 1-3 OR FEVER; Start at 16:00 Acetaminophen/ Hydrocodone Bitart ([place] (5/325)) 1 tab Q6H PRN PO MODERATE PAIN LEVEL 4-6; Start 08/21/16 at 16:00 Morphine Sulfate (morphine) 2 mg Q4H PRN IV SEVERE PAIN LEVEL 7-10; Start 08/21 at 16:00 Magnesium Hydroxide (Milk Of Mag) 30 ml DAILY PRN PO CONSTIPATION Last administered on 08/23/16 16:41; Admin Dose 30 ML; Start 08/21/16 at 16:00 Sodium Biphosphate/ Sodium Phosphate (Fleet Enema) 133 ml DAILY PRN [place] CONSTIPATION; Start 08/21/16 at 16:00 Heparin Sodium (Porcine) (Heparin (5000 Units/0.5 ml)) 5,000 unit Q12 SC Last administered on 08/24/16 08:44; Admin Dose 5,000 UNIT; Start 08/21/16 at 21:00 Lorazepam (Ativan) 0.5 mg Q6H PRN IV ANXIETY Last administered on 08/23/16 21: 21; Admin Dose 0.5 MG; Start 08/21/16 at 16:00 Hydralazine HCl (Apresoline) 10 mg Q6H PRN IV ELEVATED BLOOD PRESSURE; Start at 16:00 Nitroglycerin (Nitroglycerin (Sl Tab) 0.4 Mg) 1 tab Q5M PRN SL ANGINA; Start at 16:00 Aspirin (Aspirin) 81 mg DAILY PO Last administered on 08/24/16 08:31; Admin Dose 81 MG; Start 08/22/16 at 09:00 Carvedilol 3.125 mg 3.125 mg BID PO Last administered on 08/24/16 08:32; Admin Dose 3.125 MG; Start 08/21/16 at 21:00 Sodium Chloride (1/2 NS) 1,000 ml @ 20 mls/hr Q24H IV Last administered on 14:30; Admin Dose 20 MLS/HR; Start 08/21/16 at 19:00 Pantoprazole (Protonix Iv) 40 mg BID@06,18 IV Last administered on 08/24/16 06 :09; Admin Dose 40 MG; Start 08/22/16 at 06:00 Metoclopramide HCl (Reglan) 10 mg Q6H PRN IV nausea/vomiting; Start 08/21/16 at 19:00 Docusate Sodium (Colace) 100 mg Q12H PO Last administered on 08/24/16 06:09; Admin Dose 100 MG; Start 08/22/16 at 16:00 Furosemide (Lasix) 40 mg DAILY@06 PO ; Start 08/24/16 at 11:00 ARIS MORLEY MD August 24, 2016 11:50
--- NOTE | 2016-08-24 14:55 | CONS ---
Date/Time of Note Date/Time of Note DATE: 08/24/16 TIME: 14:53 Assessment/Plan Assessment/Plan Chief Complaint/Hosp Course 1. WILEY better 2. COPD 3.PRE RENAL AZOTEMIA better Problems: Additional Assessment/Plan 1. Kidney function optimization Consultation Date/Type/Reason Admit Date/Time August 21, 2016 at 18:07 Initial Consult Date 08/21/16 Type of Consultation: nephrology Reason for Consultation Dr Villar Referring Provider: MAXX LO Exam/Review of Systems Vital Signs Vitals Vital Signs Date Time Temp Pulse Resp B/P Pulse Ox O2 Delivery O2 Flow Rate FiO2 08/24/16 07:23 98.1 70 18 104/56 98 08/24/16 02:47 21 08/21/16 18:36 Room Air Intake and Output 08/23/16 08/23/16 08/24/16 15:00 23:00 07:00 Intake Total 1150 ml 400 ml Output Total 2 ml Balance 1150 ml 398 ml Exam Constitutional: alert, oriented Psych: no complaints Head: normocephalic Eyes: nl conjunctiva ENMT: nl external ears & nose Neck: supple Respiratory: clear to auscultation Cardiovascular: regular rate and rhythm Results Result Diagram: 08/24/16 0946 08/24/16 0946 Results 24 hrs Laboratory Tests Test 08/24/16 09:40 08/24/16 09:46 Magnesium Level 2.4 White Blood Count 6.7 # Red Blood Count 4.42 Hemoglobin 12.6 Hematocrit 40.4 Mean Corpuscular Volume 91.4 Mean Corpuscular Hemoglobin 28.5 L Mean Corpuscular Hemoglobin Concent 31.2 L Red Cell Distribution Width 14.0 Platelet Count 205 Mean Platelet Volume 10.6 H Neutrophils % 72.3 Lymphocytes % 15.3 Monocytes % 11.0 Eosinophils % 1.2 Basophils % 0.1 Nucleated Red Blood Cells % 0.0 Neutrophils # 4.9 Lymphocytes # 1.0 Monocytes # 0.7 Eosinophils # 0.1 Basophils # 0.0 Nucleated Red Blood Cells # 0.0 Sodium Level 133 L Potassium Level 4.1 Chloride Level 97 Carbon Dioxide Level 31 Anion Gap 9 # Blood Urea Nitrogen 16 Creatinine 1.08 H Glucose Level 91 Calcium Level 9.3 Medications Medications Current Medications Ondansetron HCl (Zofran Inj) 4 mg Q6H PRN IV NAUSEA AND/OR VOMITING; Start at 16:00 Acetaminophen (Tylenol Tab) 650 mg Q6H PRN PO PAIN LEVEL 1-3 OR FEVER; Start at 16:00 Acetaminophen/ Hydrocodone Bitart ([place] (5/325)) 1 tab Q6H PRN PO MODERATE PAIN LEVEL 4-6; Start 08/21/16 at 16:00 Morphine Sulfate (morphine) 2 mg Q4H PRN IV SEVERE PAIN LEVEL 7-10; Start 08/21 at 16:00 Magnesium Hydroxide (Milk Of Mag) 30 ml DAILY PRN PO CONSTIPATION Last administered on 08/23/16 16:41; Admin Dose 30 ML; Start 08/21/16 at 16:00 Sodium Biphosphate/ Sodium Phosphate (Fleet Enema) 133 ml DAILY PRN [place] CONSTIPATION; Start 08/21/16 at 16:00 Heparin Sodium (Porcine) (Heparin (5000 Units/0.5 ml)) 5,000 unit Q12 SC Last administered on 08/24/16 08:44; Admin Dose 5,000 UNIT; Start 08/21/16 at 21:00 Lorazepam (Ativan) 0.5 mg Q6H PRN IV ANXIETY Last administered on 08/23/16 21: 21; Admin Dose 0.5 MG; Start 08/21/16 at 16:00 Hydralazine HCl (Apresoline) 10 mg Q6H PRN IV ELEVATED BLOOD PRESSURE; Start at 16:00 Nitroglycerin (Nitroglycerin (Sl Tab) 0.4 Mg) 1 tab Q5M PRN SL ANGINA; Start at 16:00 Aspirin (Aspirin) 81 mg DAILY PO Last administered on 08/24/16 08:31; Admin Dose 81 MG; Start 08/22/16 at 09:00 Carvedilol 3.125 mg 3.125 mg BID PO Last administered on 08/24/16 08:32; Admin Dose 3.125 MG; Start 08/21/16 at 21:00 Sodium Chloride (1/2 NS) 1,000 ml @ 20 mls/hr Q24H IV Last administered on 14:30; Admin Dose 20 MLS/HR; Start 08/21/16 at 19:00 Pantoprazole (Protonix Iv) 40 mg BID@06,18 IV Last administered on 08/24/16 06 :09; Admin Dose 40 MG; Start 08/22/16 at 06:00 Metoclopramide HCl (Reglan) 10 mg Q6H PRN IV nausea/vomiting; Start 08/21/16 at 19:00 Docusate Sodium (Colace) 100 mg Q12H PO Last administered on 08/24/16 06:09; Admin Dose 100 MG; Start 08/22/16 at 16:00 Furosemide (Lasix) 40 mg DAILY@06 PO Last administered on 08/24/16 11:44; Admin Dose 40 MG; Start 08/24/16 at 11:00 INGRIS KRUSE August 24, 2016 14:55
[2016-08-24] MEDS: SOD CHLORIDE 0.45% 1,000 ML IV SCH (15:00)
[2016-08-24] MEDS ORDERED: VITAMIN A & D 5 GM OINT PACKET TOP ONE (15:54)
[2016-08-24] MEDS: MAGNESIUM HYDROXIDE 30ML CUP PO PRN (16:00)
--- NOTE | 2016-08-24 16:33 | CONS ---
Date/Time of Note Date/Time of Note DATE: 08/24/16 TIME: 16:29 Assessment/Plan Assessment/Plan Additional Assessment/Plan Nausea /vomiting improved * History of EGD 07/19/2016: Hiatal hernia. Gastroesophageal reflux disease. Gastritis with erosions. Small prepyloric gastric ulcer. Gastric mucosal biopsies were taken for Helicobacter pylori test. * History of colonoscopy 07/19/2016: Small sigmoid colon polyp was removed using the biopsy forceps. Internal hemorrhoids. Severe biventricular Cardiomyopathy Acute kidney injury, improved Mitral and tricuspid valve regurgitation Pulmonary hypertension Plan: Continue present management Recommend heart healthy Continue Reglan 10 mg every 6 hours and Protonix 40 mg twice daily Further conditions depend on clinical course Patient seen in collaboration with Dr. Hayes Consultation Date/Type/Reason Admit Date/Time August 21, 2016 at 18:07 Initial Consult Date 08/21/16 Type of Consultation: Gastroenterology Referring Provider: MAXX LO 24 HR Interval Summary Free Text/Dictation Tolerating diet Reports slight intermittent cramping and nausea Denies abdominal pain Possible discharge tomorrow Exam/Review of Systems Vital Signs Vitals Vital Signs Date Time Temp Pulse Resp B/P Pulse Ox O2 Delivery O2 Flow Rate FiO2 08/24/16 15:36 72 18 98 21 08/24/16 07:23 98.1 104/56 08/21/16 18:36 Room Air Intake and Output 08/23/16 08/23/16 08/24/16 15:00 23:00 07:00 Intake Total 1150 ml 400 ml Output Total 2 ml Balance 1150 ml 398 ml Exam Constitutional: alert, oriented, well developed Psych: nl mood/affect Head: normocephalic Eyes: EOMI, nl conjunctiva, nl lids ENMT: nl external ears & nose, nl lips & teeth, nl nasal mucosa & septum Respiratory: clear to auscultation, normal air movement Cardiovascular: regular rate and rhythm Gastrointestinal: soft, non-tender Musculoskeletal: nl extremities to inspection 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 Results Result Diagram: 08/24/16 0946 08/24/16 0946 Results 24 hrs Laboratory Tests Test 08/24/16 09:40 08/24/16 09:46 Magnesium Level 2.4 White Blood Count 6.7 # Red Blood Count 4.42 Hemoglobin 12.6 Hematocrit 40.4 Mean Corpuscular Volume 91.4 Mean Corpuscular Hemoglobin 28.5 L Mean Corpuscular Hemoglobin Concent 31.2 L Red Cell Distribution Width 14.0 Platelet Count 205 Mean Platelet Volume 10.6 H Neutrophils % 72.3 Lymphocytes % 15.3 Monocytes % 11.0 Eosinophils % 1.2 Basophils % 0.1 Nucleated Red Blood Cells % 0.0 Neutrophils # 4.9 Lymphocytes # 1.0 Monocytes # 0.7 Eosinophils # 0.1 Basophils # 0.0 Nucleated Red Blood Cells # 0.0 Sodium Level 133 L Potassium Level 4.1 Chloride Level 97 Carbon Dioxide Level 31 Anion Gap 9 # Blood Urea Nitrogen 16 Creatinine 1.08 H Glucose Level 91 Calcium Level 9.3 Medications Medications Current Medications Ondansetron HCl (Zofran Inj) 4 mg Q6H PRN IV NAUSEA AND/OR VOMITING; Start at 16:00 Acetaminophen (Tylenol Tab) 650 mg Q6H PRN PO PAIN LEVEL 1-3 OR FEVER; Start at 16:00 Acetaminophen/ Hydrocodone Bitart ([place] (5/325)) 1 tab Q6H PRN PO MODERATE PAIN LEVEL 4-6; Start 08/21/16 at 16:00 Morphine Sulfate (morphine) 2 mg Q4H PRN IV SEVERE PAIN LEVEL 7-10; Start 08/21 at 16:00 Magnesium Hydroxide (Milk Of Mag) 30 ml DAILY PRN PO CONSTIPATION Last administered on 08/24/16 16:00; Admin Dose 30 ML; Start 08/21/16 at 16:00 Sodium Biphosphate/ Sodium Phosphate (Fleet Enema) 133 ml DAILY PRN [place] CONSTIPATION; Start 08/21/16 at 16:00 Heparin Sodium (Porcine) (Heparin (5000 Units/0.5 ml)) 5,000 unit Q12 SC Last administered on 08/24/16 08:44; Admin Dose 5,000 UNIT; Start 08/21/16 at 21:00 Lorazepam (Ativan) 0.5 mg Q6H PRN IV ANXIETY Last administered on 08/23/16 21: 21; Admin Dose 0.5 MG; Start 08/21/16 at 16:00 Hydralazine HCl (Apresoline) 10 mg Q6H PRN IV ELEVATED BLOOD PRESSURE; Start at 16:00 Nitroglycerin (Nitroglycerin (Sl Tab) 0.4 Mg) 1 tab Q5M PRN SL ANGINA; Start at 16:00 Aspirin (Aspirin) 81 mg DAILY PO Last administered on 08/24/16 08:31; Admin Dose 81 MG; Start 08/22/16 at 09:00 Carvedilol 3.125 mg 3.125 mg BID PO Last administered on 08/24/16 08:32; Admin Dose 3.125 MG; Start 08/21/16 at 21:00 Sodium Chloride (1/2 NS) 1,000 ml @ 20 mls/hr Q24H IV Last administered on 14:30; Admin Dose 20 MLS/HR; Start 08/21/16 at 19:00 Pantoprazole (Protonix Iv) 40 mg BID@06,18 IV Last administered on 08/24/16 06 :09; Admin Dose 40 MG; Start 08/22/16 at 06:00 Metoclopramide HCl (Reglan) 10 mg Q6H PRN IV nausea/vomiting; Start 08/21/16 at 19:00 Docusate Sodium (Colace) 100 mg Q12H PO Last administered on 08/24/16 15:56; Admin Dose 100 MG; Start 08/22/16 at 16:00 Furosemide (Lasix) 40 mg DAILY@06 PO Last administered on 08/24/16 11:44; Admin Dose 40 MG; Start 08/24/16 at 11:00 BRITTANIE MYLES August 24, 2016 16:33
[2016-08-24] MEDS: LORAZEPAM 2 MG INJ IV PRN (18:18)
[2016-08-24 19:00] VITALS: BP 95/52; RESP 19
[2016-08-25] MEDS: ALBUTEROL/IPRATROPIUM (NEB) 3 ML AMP HHN SCH ×3 (01:23→14:00)
[2016-08-25] MEDS: LORAZEPAM 2 MG INJ IV PRN ×2 (01:45→13:36)
[2016-08-25] MEDS: DOCUSATE SODIUM 100 MG CAP PO SCH ×2 (05:13→18:10)
[2016-08-25] MEDS: PANTOPRAZOLE 40 MG INJ IV SCH ×2 (05:13→18:00)
[2016-08-25] MEDS: FUROSEMIDE 40 MG TAB PO SCH (05:16)
[2016-08-25 07:00] VITALS: BP 109/60; RESP 20
[2016-08-25] MEDS: ASPIRIN 81 MG TAB PO SCH (08:38)
[2016-08-25] MEDS: HEPARIN 5,000 UNIT/0.5 ML VIAL SC SCH (08:42)
[2016-08-25 08:57] LABS: ADD SCAN DIFF NO
[2016-08-25 09:03] LABS: BASOPHILS % 0.2 % (0.0-2.0); EOSINOPHILS # 0.1 10^3/ul (0.0-0.5); EOSINOPHILS % 1.6 % (0.0-7.0); HEMATOCRIT 39.9 % (37.0-47.0); HEMOGLOBIN 12.5 g/dl (12.0-16.0); LYMPHOCYTES # 1.2 10^3/ul (0.8-2.9); LYMPHOCYTES % 18.2 % (15.0-51.0); MEAN CORPUSCULAR HEMOGLOBIN 28.3 pg (29.0-33.0); MEAN CORPUSCULAR HGB CONC 31.3 g/dl (32.0-37.0); MEAN CORPUSCULAR VOLUME 90.5 fl (82.0-101.0); MONOCYTES % 15.2 % (0.0-11.0); NEUTROPHIL # 4.1 10^3/ul (1.6-7.5); NEUTROPHILS % 64.5 % (39.0-77.0); PLATELET COUNT 199 10^3/UL (140-415); RED BLOOD COUNT 4.41 10^6/ul (4.20-5.40); RED CELL DISTRIBUTION WIDTH 13.9 % (11.5-14.5); WHITE BLOOD COUNT 6.3 10^3/ul (4.8-10.8)
[2016-08-25 09:17] LABS: POTASSIUM 4.3 mmol/L (3.5-5.1)
[2016-08-25 09:20] LABS: CREATININE 1.05 mg/dl (0.44-1.00)
[2016-08-25] MEDS ORDERED: ALBU18HF INHALATION (11:50)
[2016-08-25] MEDS ORDERED: PANT40TA3 PO (11:50)
[2016-08-25] MEDS ORDERED: ADV25050 INHALATION (11:50)
[2016-08-25] MEDS ORDERED: DOCU-216 PO (11:50)
[2016-08-25] MEDS ORDERED: ASPI81TA3 PO (11:50)
[2016-08-25] MEDS ORDERED: FURO40TA4 PO (11:50)
--- NOTE | 2016-08-25 12:17 | PN ---
Date/Time of Note Date/Time of Note DATE: 08/25/16 TIME: 12:15 Assessment/Plan VTE Prophylaxis VTE Prophylaxis Intervention: ambulation Lines/Catheters IV [facility]ter Type [facility]from [facility] Saline Lock Urinary Cath still in place: No Assessment/Plan Chief Complaint/Hosp Course Problems: Assessment/Plan Nausea /vomiting improved * History of EGD 07/19/2016 1. Hiatal hernia. Gastroesophageal reflux disease. Gastritis with erosions. Small prepyloric gastric ulcer. . Gastric mucosal biopsies were taken for Helicobacter pylori test. * History of colonoscopy 07/19/2016 . Small sigmoid colon polyp was removed using the biopsy forceps. Internal hemorrhoids. * Severe biventricular Cardiomyopathy * Acute kidney injury * Mitral and tricuspid valve regurgitation Pulmonary hypertension Plan * continue present management * Heart healthy diet * Metoclopramide 10 mg q 6 * Protonix 40 mg BID for 6 weeks * Stable for outpatient management Subjective 24 Hr Interval Summary Free Text/Dictation * Course reviewed with RN * Patient seen and examined * No vomiting Exam/Review of Systems Vital Signs Vitals Vital Signs Date Time Temp Pulse Resp B/P Pulse Ox O2 Delivery O2 Flow Rate FiO2 08/25/16 08:14 72 20 21 08/25/16 07:00 97.9 109/60 97 08/21/16 18:36 Room Air Intake and Output 08/24/16 08/24/16 08/25/16 15:00 23:00 07:00 Intake Total 1400 ml 800 ml Balance 1400 ml 800 ml Exam Constitutional: alert, oriented Head: normocephalic Neck: supple Respiratory: clear to auscultation, normal air movement Cardiovascular: nl pulses, regular rate and rhythm Gastrointestinal: nl liver, spleen, soft Musculoskeletal: nl extremities to inspection, nl gait and stance Extremities: normal pulses Results Result Diagram: 08/25/16 0830 08/25/16 0832 Results 24 hrs Laboratory Tests Test 08/25/16 08:30 08/25/16 08:32 White Blood Count 6.3 Red Blood Count 4.41 Hemoglobin 12.5 Hematocrit 39.9 Mean Corpuscular Volume 90.5 Mean Corpuscular Hemoglobin 28.3 L Mean Corpuscular Hemoglobin Concent 31.3 L Red Cell Distribution Width 13.9 Platelet Count 199 Mean Platelet Volume 11.0 H Neutrophils % 64.5 Lymphocytes % 18.2 Monocytes % 15.2 H Eosinophils % 1.6 Basophils % 0.2 Nucleated Red Blood Cells % 0.0 Neutrophils # 4.1 Lymphocytes # 1.2 Monocytes # 1.0 H Eosinophils # 0.1 Basophils # 0.0 Nucleated Red Blood Cells # 0.0 Sodium Level 136 Potassium Level 4.3 Chloride Level 95 L Carbon Dioxide Level 32 H Anion Gap 13 Blood Urea Nitrogen 17 Creatinine 1.05 H Glucose Level 82 Calcium Level 9.0 Medications Medications Current Medications Ondansetron HCl (Zofran Inj) 4 mg Q6H PRN IV NAUSEA AND/OR VOMITING; Start at 16:00 Acetaminophen (Tylenol Tab) 650 mg Q6H PRN PO PAIN LEVEL 1-3 OR FEVER; Start at 16:00 Acetaminophen/ Hydrocodone Bitart ([place] (5/325)) 1 tab Q6H PRN PO MODERATE PAIN LEVEL 4-6; Start 08/21/16 at 16:00 Morphine Sulfate (morphine) 2 mg Q4H PRN IV SEVERE PAIN LEVEL 7-10; Start 08/21 at 16:00 Magnesium Hydroxide (Milk Of Mag) 30 ml DAILY PRN PO CONSTIPATION Last administered on 08/24/16 16:00; Admin Dose 30 ML; Start 08/21/16 at 16:00 Sodium Biphosphate/ Sodium Phosphate (Fleet Enema) 133 ml DAILY PRN [place] CONSTIPATION; Start 08/21/16 at 16:00 Heparin Sodium (Porcine) (Heparin (5000 Units/0.5 ml)) 5,000 unit Q12 SC Last administered on 08/25/16 08:42; Admin Dose 5,000 UNIT; Start 08/21/16 at 21:00 Lorazepam (Ativan) 0.5 mg Q6H PRN IV ANXIETY Last administered on 08/25/16 01: 45; Admin Dose 0.5 MG; Start 08/21/16 at 16:00 Hydralazine HCl (Apresoline) 10 mg Q6H PRN IV ELEVATED BLOOD PRESSURE; Start at 16:00 Nitroglycerin (Nitroglycerin (Sl Tab) 0.4 Mg) 1 tab Q5M PRN SL ANGINA; Start at 16:00 Aspirin (Aspirin) 81 mg DAILY PO Last administered on 08/25/16 08:38; Admin Dose 81 MG; Start 08/22/16 at 09:00 Carvedilol 3.125 mg 3.125 mg BID PO Last administered on 08/25/16 08:38; Admin Dose 3.125 MG; Start 08/21/16 at 21:00 Sodium Chloride (1/2 NS) 1,000 ml @ 20 mls/hr Q24H IV Last administered on 14:30; Admin Dose 20 MLS/HR; Start 08/21/16 at 19:00 Pantoprazole (Protonix Iv) 40 mg BID@06,18 IV Last administered on 08/25/16 05 :13; Admin Dose 40 MG; Start 08/22/16 at 06:00 Metoclopramide HCl (Reglan) 10 mg Q6H PRN IV nausea/vomiting; Start 08/21/16 at 19:00 Docusate Sodium (Colace) 100 mg Q12H PO Last administered on 08/25/16 05:13; Admin Dose 100 MG; Start 08/22/16 at 16:00 Furosemide (Lasix) 40 mg DAILY@06 PO Last administered on 08/25/16 05:16; Admin Dose 40 MG; Start 08/24/16 at 11:00 Salmeterol Xinafoate/ Fluticasone (Advair 250/50 Diskus) 1 inh BID INH ; Start 08/25/16 at 21:00 NIKA SPENCE MD August 25, 2016 12:17
--- NOTE | 2016-08-25 13:33 | CONS ---
Date/Time of Note Date/Time of Note DATE: 08/25/16 TIME: 13:31 Assessment/Plan Assessment/Plan Chief Complaint/Hosp Course 1. WILEY better 2. COPD 3.PRE RENAL AZOTEMIA better Problems: Additional Assessment/Plan 1. Optimization kidney function Consultation Date/Type/Reason Admit Date/Time August 21, 2016 at 18:07 Initial Consult Date 08/21/16 Type of Consultation: nephrology Reason for Consultation dr Villar Referring Provider: MAXX LO Exam/Review of Systems Vital Signs Vitals Vital Signs Date Time Temp Pulse Resp B/P Pulse Ox O2 Delivery O2 Flow Rate FiO2 08/25/16 08:14 72 20 21 08/25/16 07:00 97.9 109/60 97 08/21/16 18:36 Room Air Intake and Output 08/24/16 08/24/16 08/25/16 15:00 23:00 07:00 Intake Total 1400 ml 800 ml Balance 1400 ml 800 ml Exam Constitutional: alert, oriented, well developed Psych: no complaints Head: atraumatic, normocephalic Eyes: nl conjunctiva ENMT: nl external ears & nose Neck: supple Respiratory: clear to auscultation, normal air movement Cardiovascular: regular rate and rhythm Gastrointestinal: soft Genitourinary - Female: nl external genitalia Results Result Diagram: 08/25/16 0830 08/25/16 0832 Results 24 hrs Laboratory Tests Test 08/25/16 08:30 08/25/16 08:32 White Blood Count 6.3 Red Blood Count 4.41 Hemoglobin 12.5 Hematocrit 39.9 Mean Corpuscular Volume 90.5 Mean Corpuscular Hemoglobin 28.3 L Mean Corpuscular Hemoglobin Concent 31.3 L Red Cell Distribution Width 13.9 Platelet Count 199 Mean Platelet Volume 11.0 H Neutrophils % 64.5 Lymphocytes % 18.2 Monocytes % 15.2 H Eosinophils % 1.6 Basophils % 0.2 Nucleated Red Blood Cells % 0.0 Neutrophils # 4.1 Lymphocytes # 1.2 Monocytes # 1.0 H Eosinophils # 0.1 Basophils # 0.0 Nucleated Red Blood Cells # 0.0 Sodium Level 136 Potassium Level 4.3 Chloride Level 95 L Carbon Dioxide Level 32 H Anion Gap 13 Blood Urea Nitrogen 17 Creatinine 1.05 H Glucose Level 82 Calcium Level 9.0 Medications Medications Current Medications Ondansetron HCl (Zofran Inj) 4 mg Q6H PRN IV NAUSEA AND/OR VOMITING; Start at 16:00 Acetaminophen (Tylenol Tab) 650 mg Q6H PRN PO PAIN LEVEL 1-3 OR FEVER; Start at 16:00 Acetaminophen/ Hydrocodone Bitart ([place] (5/325)) 1 tab Q6H PRN PO MODERATE PAIN LEVEL 4-6; Start 08/21/16 at 16:00 Morphine Sulfate (morphine) 2 mg Q4H PRN IV SEVERE PAIN LEVEL 7-10; Start 08/21 at 16:00 Magnesium Hydroxide (Milk Of Mag) 30 ml DAILY PRN PO CONSTIPATION Last administered on 08/24/16 16:00; Admin Dose 30 ML; Start 08/21/16 at 16:00 Sodium Biphosphate/ Sodium Phosphate (Fleet Enema) 133 ml DAILY PRN [place] CONSTIPATION; Start 08/21/16 at 16:00 Heparin Sodium (Porcine) (Heparin (5000 Units/0.5 ml)) 5,000 unit Q12 SC Last administered on 08/25/16 08:42; Admin Dose 5,000 UNIT; Start 08/21/16 at 21:00 Lorazepam (Ativan) 0.5 mg Q6H PRN IV ANXIETY Last administered on 08/25/16 01: 45; Admin Dose 0.5 MG; Start 08/21/16 at 16:00 Hydralazine HCl (Apresoline) 10 mg Q6H PRN IV ELEVATED BLOOD PRESSURE; Start at 16:00 Nitroglycerin (Nitroglycerin (Sl Tab) 0.4 Mg) 1 tab Q5M PRN SL ANGINA; Start at 16:00 Aspirin (Aspirin) 81 mg DAILY PO Last administered on 08/25/16 08:38; Admin Dose 81 MG; Start 08/22/16 at 09:00 Carvedilol 3.125 mg 3.125 mg BID PO Last administered on 08/25/16 08:38; Admin Dose 3.125 MG; Start 08/21/16 at 21:00 Sodium Chloride (1/2 NS) 1,000 ml @ 20 mls/hr Q24H IV Last administered on 14:30; Admin Dose 20 MLS/HR; Start 08/21/16 at 19:00 Pantoprazole (Protonix Iv) 40 mg BID@06,18 IV Last administered on 08/25/16 05 :13; Admin Dose 40 MG; Start 08/22/16 at 06:00 Metoclopramide HCl (Reglan) 10 mg Q6H PRN IV nausea/vomiting; Start 08/21/16 at 19:00 Docusate Sodium (Colace) 100 mg Q12H PO Last administered on 08/25/16 05:13; Admin Dose 100 MG; Start 08/22/16 at 16:00 Furosemide (Lasix) 40 mg DAILY@06 PO Last administered on 08/25/16 05:16; Admin Dose 40 MG; Start 08/24/16 at 11:00 Salmeterol Xinafoate/ Fluticasone (Advair 250/50 Diskus) 1 inh BID INH ; Start 08/25/16 at 21:00 INGRIS KRUSE August 25, 2016 13:33
[2016-08-25] MEDS: SOD CHLORIDE 0.45% 1,000 ML IV SCH (14:28)
--- NOTE | 2016-08-25 15:03 | PDOCDIS ---
Discharge Instructions DIAGNOSIS Discharge Diagnosis: 1. Reactive airway disease2. History of severe biventricular cardiomyopat CONDITION Patient Condition: Stable HOME CARE INSTRUCTIONS: Special Diet: LOW CHOLES LOW FAT FOLLOW UP/APPOINTMENTS Appointments 1. Follow up with Lonnie Matthews in one week APOLLO ORELLANA August 25, 2016 15:03
--- NOTE | 2016-08-25 15:09 | DS ---
Date/Time of Note Date/Time of Note DATE: 08/25/16 TIME: 15:04 Discharge Summary Admission/Discharge Info Admit Date/Time August 21, 2016 at 18:07 Discharge Date/Time Final Diagnosis 1. Reactive airway disease 2. Severe biventricular cardiomyopathy with ejection fraction of less than 20% 3. History of mitral valve regurgitation 4. Pulmonary hypertension 5. History of CHF 6. Acute kidney injury Patient Condition: Stable Consults 1. Dr. Sameer Hayes 2. Dr. Saldivar Huggins [facility] Course Is a 56-year-old female with history of COPD, CHF, hypertension, prior pacemaker placement, no chest pain or shortness of breath as well as nausea and vomiting for 2 days duration. Patient was actually seen by her radiosonde specialist patient was recommended to go to [facility]. Patient did have some reports of shortness of breath was likely combination of COPD as well as CHF. Cardiology was obtained and she was placed on Solu-Medrol as well as breathing treatments. She did have good response from diuretic. Patient also had some acute kidney injury and for this medications had to be renally dosed. She did improve during her course of stay. Patient was otherwise optimized medically. She did have a history of severe biventricular cardiomyopathy with ejection fraction less than 20% she was optimized with the cardiovascular medications of note AURA inhibitor held as well as spironolactone due to her renal insufficiency. She was provided with oxygen as needed for her shortness of breath as well. She was also seen by sales performance manager for her reported nausea and vomiting and did have an reported previous EGD that did show some GERD as well as gastritis she was placed on PPI medication and she did have a response with this. during the course of stay she did improve. Her breathing had significantly improved with no need for oxygen. She denies any further nausea vomiting or abdominal pain. She was instructed to follow-up with android software engineer within a week. The plan of care was discussed with the patient and patient did verbalize her understanding. On the day of discharge patient was in stable condition Discussed plan of care with Dr. Bray Discharge process 40 minutes Home Meds Active Scripts Albuterol Sulfate* (Ventolin HFA*) 18 Gm Hfa.aer.ad, 2 PUFF INHALATION Q4H, #1 INHALER Prov:APOLLO ORELLANA 08/25/16 Salmeterol Xinaf/Fluticasone* (Advair*) 250-50 Diskus Inhaler, 1 INH INHALATION BID, #1 INHALER Prov:REGASHLEYErikAPOLLO 08/25/16 Docusate Sodium (Dok) 100 Mg Capsule, 100 MG PO Q12H Y for CONSTIPATION, #30 CAP Prov:REGIDOErikAPOLLO 08/25/16 Pantoprazole* (Protonix*) 40 Mg Tablet.dr, 40 MG PO BID for 30 Days, TAB Prov:REGASHLEYAPOLLO Valencia 08/25/16 Furosemide* (Furosemide*) 40 Mg Tablet, 40 MG PO DAILY@06 for 30 Days, TAB Prov:REGASHLEYAPOLLO Valencia 08/25/16 Aspirin (Aspirin) 81 Mg Chew, 81 MG PO DAILY for 30 Days, TAB Prov:APOLLO ORELLANA 08/25/16 Metoclopramide* (Reglan*) 10 Mg Tablet, 10 MG PO Q6 Y for NAUSEA AND/OR VOMITING , #10 TAB Prov:CESARKTCINDI KEY 08/20/16 Ranitidine Hcl* (Zantac*) 150 Mg Tablet, 150 MG PO BID Y for EPIGASTRIC PAIN, # 30 TAB Prov:KT GUERRERO 08/20/16 Furosemide* (Furosemide*) 40 Mg Tablet, 40 MG PO BID, #90 TAB 3 Refills Prov:DIDIER BRAY 01/23/16 Carvedilol* (Carvedilol*) 3.125 Mg Tablet, 3.125 MG PO BID, #60 TAB 3 Refills Prov:DIDIER BRAY 01/23/16 Reported Medications Spironolactone* (Aldactone*) 25 Mg Tablet, 25 MG PO BID, #60 TAB 08/20/16 Ondansetron Hcl* (Ondansetron Hcl*) 4 Mg Tablet, 12 MG PO BID Y for NAUSEA AND OR VOMITING, TAB 08/20/16 Lisinopril* (Lisinopril*) 2.5 Mg Tablet, 2.5 MG PO BID, #60 TAB 01/05/16 Aspirin (Barrett Child) 81 Mg Chew, 81 MG PO DAILY 04/01/12 Discontinued Scripts Ondansetron Hcl* (Zofran*) 4 Mg Tablet, 4 MG PO Q8H Y for NAUSEA AND/OR VOMITING , #12 TAB Prov:MARGARETTE HOOKS DO 08/15/16 Lorazepam* (Ativan*) 0.5 Mg Tablet, 0.5 MG PO Q8H Y for ANXIETY, #6 TAB Prov:JACQUELYNDAMI StuartMELITON DO 08/15/16 Polyethylene Glycol* (Miralax*) 17 Gm Powd.pack, 17 GM PO DAILY, #10 Prov:KRISTIN YEN DO 03/17/16 Ondansetron Hcl* (Zofran*) 4 Mg Tablet, 4 MG PO Q8H Y for NAUSEA AND/OR VOMITING , #30 TAB Prov:BRYCE JOHNSON MD 01/31/16 Lorazepam* (Ativan*) 0.5 Mg Tablet, 0.5 MG PO Q8 for ANXIETY, #30 TAB Prov:DIDIER BRAY 01/23/16 Spironolactone* (Aldactone*) 25 Mg Tablet, 12.5 MG PO BID for 30 Days, TAB Prov:GERARDO JOHN NP 12/20/15 Follow-up Plan CONDITION Patient Condition: Stable HOME CARE INSTRUCTIONS: Special Diet: LOW CHOLES LOW FAT FOLLOW UP/APPOINTMENTS Appointments 1. Follow up with Lonnie Matthews in one week Primary Care Provider Stephan Nuñez Pending Labs Laboratory Tests Test 08/25/16 08:30 08/25/16 08:32 White Blood Count 6.310^3/ul (4.8-10.8) Red Blood Count 4.4110^6/ul (4.20-5.40) Hemoglobin 12.5g/dl (12.0-16.0) Hematocrit 39.9% (37.0-47.0) Mean Corpuscular Volume 90.5fl (82.0-101.0) Mean Corpuscular Hemoglobin 28.3pg (29.0-33.0) Mean Corpuscular Hemoglobin Concent 31.3g/dl (32.0-37.0) Red Cell Distribution Width 13.9% (11.5-14.5) Platelet Count 09252^3/UL (140-415) Mean Platelet Volume 11.0fl (7.4-10.4) Neutrophils % 64.5% (39.0-77.0) Lymphocytes % 18.2% (15.0-51.0) Monocytes % 15.2% (0.0-11.0) Eosinophils % 1.6% (0.0-7.0) Basophils % 0.2% (0.0-2.0) Nucleated Red Blood Cells % 0.0/100WBC (0.0-0.0) Neutrophils # 4.110^3/ul (1.6-7.5) Lymphocytes # 1.210^3/ul (0.8-2.9) Monocytes # 1.010^3/ul (0.3-0.9) Eosinophils # 0.110^3/ul (0.0-0.5) Basophils # 0.010^3/ul (0.0-0.1) Nucleated Red Blood Cells # 0.010^3/ul (0.0-0.0) Sodium Level 136mmol/L (135-144) Potassium Level 4.3mmol/L (3.5-5.1) Chloride Level 95mmol/L (97-110) Carbon Dioxide Level 32mmol/L (21-31) Anion Gap 13 (8-16) Blood Urea Nitrogen 17mg/dl (7-20) Creatinine 1.05mg/dl (0.44-1.00) Glucose Level 82mg/dl (70-220) Calcium Level 9.0mg/dl (8.4-10.2) APOLLO ORELLANA August 25, 2016 15:09
[2016-08-25] MEDS ORDERED: PANTOPRAZOLE (EC) 40 MG TAB PO SCH (18:05)
[2016-08-25] MEDS ORDERED: SALMETEROL/FLUTICASONE 250/50 INHA INH SCH (21:00)
== END 2016-08-25 18:35 | disposition home or self-care (01) | DRG 191 ==
LOC: E/R 11:52 → MS4 18:07 → MS1 08-24 07:48
PROVIDERS: ADMIT Hospitalist; ATTEND Hospitalist
DX: J44.9 Chronic obstructive pulmonary disease, unspecified (principal); N17.9 Acute kidney failure, unspecified; I27.2 Other secondary pulmonary hypertension; I11.0 Hypertensive heart disease with heart failure; I50.9 Heart failure, unspecified; I36.1 Nonrheumatic tricuspid (valve) insufficiency; Z95.0 Presence of cardiac pacemaker; R07.9 Chest pain, unspecified; R11.2 Nausea with vomiting, unspecified; I34.0 Nonrheumatic mitral (valve) insufficiency; K21.9 Gastro-esophageal reflux disease without esophagitis
CPT/HCPCS: 36415; 71010; 80048; 80053; 80061; 81003; 82570; 83036; 83605; 83735; 84100; 84155; 84300; 84439; 84443; 84484; 85025; 85610; 85730; 87040; 87086; 93005; 93306; 94640; 94664; 96374; 96375; 97162; G0378; C9113; J1644; J2060; J2270; J2405; J2930

== ENCOUNTER 2016-12-06 06:16 | Inpatient (IN) | payer OTHER ==
[2016-12-06] VITALS (7 sets, daily range): BP systolic 100–116; BP diastolic 64–68; PULSE 69–80; RESP 17–18; TEMP 98.2; Ht 167.6 cm; Wt 103.0 kg
[~2016-12-06] VITALS: Ht 167.6 cm; Wt 103.0 kg
[~2016-12-06 06:16] MED LIST changes: +ADV25050 INHALATION; +ALBU18HF INHALATION; -ASPI-676 PO; +ASPI81TA3 PO; +DOCU-216 PO; -LISI2.5T59 PO; +PANT40TA3 PO; -RANI150T9 PO; -SPIR25TA PO
--- NOTE | 2016-12-06 06:36 | ERA ---
ER Documentation Chief Complaint Date/Time DATE: 12/06/16 TIME: 06:35 Chief Complaint SOB ON EXERTION X 4 DAYS.HX OF CHF.DENIES PAIN HPI 56-year-old woman presents with shortness of breath and recent bilateral lower extremity swelling. She states she has been using albuterol pump and furosemide at home daily without relief. Patient denies chest pain, no cough, no fevers or chills, no vomiting or diarrhea. ROS All systems reviewed and are negative except as per history of present illness. Medications Home Meds Active Scripts Albuterol Sulfate* (Ventolin HFA*) 18 Gm Hfa.aer.ad, 2 PUFF INHALATION Q4H, #1 INHALER Prov:APOLLO ORELLANA 08/25/16 Salmeterol Xinaf/Fluticasone* (Advair*) 250-50 Diskus Inhaler, 1 INH INHALATION BID, #1 INHALER Prov:APOLLO ORELLANA 08/25/16 Docusate Sodium (Dok) 100 Mg Capsule, 100 MG PO Q12H Y for CONSTIPATION, #30 CAP Prov:APOLLO ORELLANA 08/25/16 Pantoprazole* (Protonix*) 40 Mg Tablet.dr, 40 MG PO BID for 30 Days, TAB Prov:APOLLO ORELLANA 08/25/16 Furosemide* (Furosemide*) 40 Mg Tablet, 40 MG PO DAILY@06 for 30 Days, TAB Prov:REGAPOLLO RILEY 08/25/16 Aspirin (Aspirin) 81 Mg Chew, 81 MG PO DAILY for 30 Days, TAB Prov:APOLLO ORELLANA 08/25/16 Metoclopramide* (Reglan*) 10 Mg Tablet, 10 MG PO Q6 Y for NAUSEA AND/OR VOMITING , #10 TAB Prov:KT GUERRERO DO 08/20/16 Carvedilol* (Carvedilol*) 3.125 Mg Tablet, 3.125 MG PO BID, #60 TAB 3 Refills Prov:DIDIER HERRERA 01/23/16 Reported Medications Ondansetron Hcl* (Ondansetron Hcl*) 4 Mg Tablet, 12 MG PO BID Y for NAUSEA AND OR VOMITING, TAB 08/20/16 Allergies Allergies: Coded Allergies: No Known Allergy (Verified , 08/20/16) PMhx/Soc COPD, CHF with a left ventricular ejection fraction of less than 20%, pulmonary hypertension, kidney injury, hypertension, AICD History of Surgery: Yes (Defibrilator and pacemaker) Anesthesia Reaction: No Hx Neurological Disorder: No Hx Respiratory Disorders: No Hx Cardiac Disorders: Yes (CHF, HTN) Hx Psychiatric Problems: No Hx Miscellaneous Medical Probl: No Hx Alcohol Use: No Hx Substance Use: No Hx Tobacco Use: No FmHx Family History: No diabetes Physical Exam Vitals Vital Signs Date Time Temp Pulse Resp B/P Pulse Ox O2 Delivery O2 Flow Rate FiO2 12/06/16 07:02 75 20 99 Nasal Cannula 2.0 12/06/16 07:02 2.0 12/06/16 06:48 Nasal Cannula 2 12/06/16 06:23 98.2 89 24 112/74 99 Physical Exam GENERAL: Well-developed, well-nourished, dyspneic, afebrile HEENT: Moist mucous membranes, pink conjunctiva, no cervical spine tenderness or step-off deformities, no goiter, no jaundice or icterus, extraocular movements intact without pain. No submandibular induration, and no pharyngeal erythema NEURO: Alert and oriented 3, cranial nerves II through XII intact bilaterally, pupils equal round reactive to light, no focal deficits or facial asymmetry, sensation intact distally Strength 5/5 in upper and lower extremities bilaterally CARDIAC: Regular rate and rhythm, no murmurs rubs or gallops LUNGS: Crackles and wheezes throughout the lungs, poor breath sounds, no stridor ABDOMEN: Soft nontender, no guarding, no rigidity, no rebound, no psoas sign no obturator sign. Normoactive bowel sounds SKIN: Warm and dry to touch, no abrasions, contusions, or hematomas, no lacerations, no ecchymosis, no target lesions, and without ulcers EXTREMITIES: No clubbing cyanosis or edema, calves are bilaterally symmetrical, no Homans sign, no popliteal cord sign. Distal pulses equal and bilateral PSYCH: Normal affect without agitation or irritability Result Diagram: 12/06/1644 12/06/1644 Results 24 hrs Laboratory Tests Test 12/06/16 06:44 White Blood Count 5.010^3/ul Red Blood Count 4.8010^6/ul Hemoglobin 13.0g/dl Hematocrit 42.7% Mean Corpuscular Volume 89.0fl Mean Corpuscular Hemoglobin 27.1pg Mean Corpuscular Hemoglobin Concent 30.4g/dl Red Cell Distribution Width 15.2% Platelet Count 33590^3/UL Mean Platelet Volume 11.6fl Neutrophils % 66.3% Lymphocytes % 21.6% Monocytes % 10.3% Eosinophils % 1.0% Basophils % 0.6% Nucleated Red Blood Cells % 0.0/100WBC Neutrophils # (Manual) 3.310^3/ul Lymphocytes # 1.110^3/ul Monocytes # 0.510^3/ul Eosinophils # 0.110^3/ul Basophils # 0.010^3/ul Nucleated Red Blood Cells # 0.010^3/ul Sodium Level 141mmol/L Potassium Level 4.2mmol/L Chloride Level 102mmol/L Carbon Dioxide Level 33mmol/L Anion Gap 10 Blood Urea Nitrogen 19mg/dl Creatinine 1.14mg/dl Glucose Level 109mg/dl Calcium Level 9.4mg/dl Total Bilirubin 1.2mg/dl Direct Bilirubin 0.00mg/dl Indirect Bilirubin 1.2mg/dl Aspartate Amino Transf (AST/SGOT) 44IU/L Alanine Aminotransferase (ALT/SGPT) 46IU/L Alkaline Phosphatase 88IU/L Troponin I 0.036ng/ml B-Type Natriuretic Peptide 7700PG/ML Total Protein 6.7g/dl Albumin 3.9g/dl Globulin 2.80g/dl Albumin/Globulin Ratio 1.39 Lipase 59U/L Current Medications Medications (Trade) Dose Ordered Sig/Yash Route PRN Reason Start Time Stop Time Status Last Admin Dose Admin Albuterol (Proventil 0.5% (Neb)) 10 mg ONCE STAT INH 12/06/16 06:39 12/06/16 06:41 DC 12/06/16 07:01 Ipratropium [place] (Atrovent 0.02% (Neb)) 1 mg ONCE STAT INH 12/06/16 06:39 12/06/16 06:41 DC 12/06/16 07:02 Methylprednisolone Sodium Succinate (Solu-Medrol) 125 mg ONCE STAT IV 12/06/16 06:39 12/06/16 06:41 DC 12/06/16 07:06 Furosemide (Lasix) 80 mg ONCE ONCE IV 12/06/16 08:30 12/06/16 08:31 UNV Procedures/MDM IV line was established patient was placed on children teacher rhythm strip revealed a paced wide-complex rhythm at about 70 bpm. Patient was afebrile. I administered albuterol 10 mg via nebulizer, ipratropium 1 mg via nebulizer, methylprednisolone 125 mg IV, and furosemide 80 mg IV 1. EKG performed, read by me revealed a paced wide-complex rhythm at 74 bpm, normal axis, no concerning ST elevations or depressions noted. One view chest x-ray performed, read by me revealed an AICD in the left chest, cardiomegaly and bilateral pleural effusions, no acute infiltrates, no pneumothorax. CBC and electrolytes were unremarkable, liver function tests normal, troponin negative.BNP over 7000. Critical Care: Time: 36 minutes, this was time separate from other billable procedures. Treatments/Evaluations: Close monitoring and treatment of unstable vital signs, cardiorespiratory, and neurologic status, while maintaining tight balance of fluid, respiratory, and cardiac interventions. Patient remains symptomatic and will be admitted to telemetry setting for continued bronchodilator therapy and diuresis. Departure Diagnosis: Primary Impression: CHF (congestive heart failure) Qualified Code: I50.21 - Acute systolic congestive heart failure Additional Impressions: Pulmonary hypertension COPD (chronic obstructive pulmonary disease) Qualified Code: J44.1 - Chronic obstructive pulmonary disease with acute exacerbation Acute respiratory failure Qualified Code: J96.01 - Acute respiratory failure with hypoxia and hypercapnia Condition: BYRCE Manjarrez MD Dec 06, 2016 06:36
[2016-12-06] MEDS ORDERED: METHYLPREDNISOLONE 125 MG INJ IV STA (06:39)
[2016-12-06] MEDS ORDERED: IPRATROPIUM (NEB) 0.5 MG/2.5 ML AMP INH STA (06:39)
[2016-12-06] MEDS ORDERED: ALBUTEROL 0.5% (NEB) 2.5 MG/0.5 ML AMP INH STA (06:39)
[2016-12-06 06:53] LABS: BASOPHILS % 0.6 % (0.0-2.0); EOSINOPHILS # 0.1 10^3/ul (0.0-0.5); HEMATOCRIT 42.7 % (37.0-47.0); LYMPHOCYTES # 1.1 10^3/ul (0.8-2.9); LYMPHOCYTES % 21.6 % (15.0-51.0); MEAN CORPUSCULAR HEMOGLOBIN 27.1 pg (29.0-33.0); MEAN CORPUSCULAR HGB CONC 30.4 g/dl (32.0-37.0); MEAN PLATELET VOLUME 11.6 fl (7.4-10.4); MONOCYTE # 0.5 10^3/ul (0.3-0.9); MONOCYTES % 10.3 % (0.0-11.0); NEUTROPHILS % 66.3 % (39.0-77.0); PLATELET COUNT 179 10^3/UL (140-415); RED CELL DISTRIBUTION WIDTH 15.2 % (11.5-14.5)
--- NOTE | 2016-12-06 07:08 | RADRPT ---
PROCEDURE: Chest Radiograph. CLINICAL INDICATION: Asthma exacerbation TECHNIQUE: Single frontal chest radiograph. COMPARISON: Chest radiograph 08/21/2016 FINDINGS: A left chest wall implantable pacer/defibrillator remains in place. The heart is enlarged. Atherosc lerotic calcifications are present. No infiltrate or effusion is seen. The bones are intact. IMPRESSION: 1. No evidence of acute cardiopulmonary disease. 2. Cardiomegaly and atherosclerotic vascular disease. RPTAT: HJBF .Antonio Dunn MD, Date Time Electronically viewed and signed by .Antonio Dunn MD, MD on 12/06/2016 07:08 .B/
[2016-12-06 07:23] LABS: ALBUMIN 3.9 g/dl (3.3-4.9); ALBUMIN/GLOBULIN RATIO 1.39; BILIRUBIN,INDIRECT 1.2 mg/dl (0-1.1); BILIRUBIN,TOTAL 1.2 mg/dl (0.2-1.3); CALCIUM 9.4 mg/dl (8.4-10.2); CREATININE 1.14 mg/dl (0.44-1.00); POTASSIUM 4.2 mmol/L (3.5-5.1); TOTAL PROTEIN 6.7 g/dl (6.1-8.1)
[2016-12-06 07:34] LABS: TROPONIN-I 0.036 ng/ml (0.00-0.12)
[2016-12-06] MEDS ORDERED: FUROSEMIDE 40 MG INJ IV ONE (08:30)
[2016-12-06] MEDS ORDERED: ASPI81TA3 PO (09:00)
[2016-12-06] MEDS ORDERED: CARV3.12 PO (09:00)
[2016-12-06] MEDS ORDERED: LORA0.5T PO (09:01)
[2016-12-06] MEDS ORDERED: FURO40TA4 PO (09:01)
[2016-12-06] MEDS ORDERED: SPIR25TA PO (09:02)
[2016-12-06] MEDS ORDERED: ALBUTEROL 0.083% (NEB) 2.5 MG/3 ML AMP HHN PRN (09:30)
[2016-12-06] MEDS ORDERED: DOCUSATE SODIUM 100 MG CAP PO PRN (09:30)
[2016-12-06] MEDS ORDERED: ACETAMINOPHEN 325 MG TAB PO PRN (09:30)
[2016-12-06] MEDS ORDERED: MAGNESIUM HYDROXIDE 30ML CUP PO PRN (09:30)
[2016-12-06] MEDS ORDERED: NACL 0.9% 3 ML SYG IV SCH (09:30)
[2016-12-06] MEDS ORDERED: ONDANSETRON 4 MG INJ IV PRN (09:30)
--- NOTE | 2016-12-06 09:53 | HP ---
Date/Time of Note Date/Time of Note DATE: 12/06/16 TIME: 09:38 Assessment/Plan VTE Prophylaxis VTE Prophylaxis Intervention: LMWH Lines/Catheters IV Catheter Type (from Nrs): Peripheral IV Central line still needed: No Urinary Cath still in place: No Assessment/Plan Assessment/Plan 1. Acute on chronic decompensated systolic heart failure - Patient denies any possible triggers that may have caused her exacerbation. - Cardiology consulted, seen by Dr. Paris during last admission in July 2016. appreciate recommendations - Last ECHO 07/2016 showed moderate enlargement of LV, severe LV systolic dysfunction with EF 20%. Mild enlargement of right ventricle. MR, AR, TR, and IL -Lasix IV 40mg BID and will monitor I/O and daily weights - Will check serial trops - BNP 7700 2. COPD - SOB appears to be more related to CHF exacerbation rather than COPD - Received solumedrol in the ED - Will continue home bronchodilators and if experiencing wheezing or cough with productive sputum will initiate steroid and antibiotics - PRN albuterol for SOB 3. WILEY - etiology could be cardio renal - Will monitor while on diuretics 4. Severe Cardiomyopathy - ICD in place 5. Diet - Cardiac Diet 6. Code Status - Full Code 7. Disposition - Will admit to telemetry >45 minutes was spent with this patient and all questions and concerns were addressed. All previous notes, imaging, and labs were personally reviewed by myself. HPI/ROS Admit Date/Time Admit Date/Time Dec 06, 9:30am Hx of Present Illness 56 yo F with PMH COPD, systolic CHF with ICD, essential HTN presented to ED with c/o worsening SOB, abdominal swelling, and b/l LE swelling for the past 4 days. Patients son was at bedside as well. She states that she usually is able to exercise for an hour a day but for the past few days has been having difficulty ambulating secondary to labored breathing and now has progressed to SOB at rest. She admits to having gained 5 lbs in the past 2 days. She increased her lasix intake with no relief as well. She states she has associated dizziness and orthopnea. Patient states she does try to follow low salt diet and limit her fluid intake. Denies any chest pain, palpitations, LOC, nausea, vomiting, or abdominal pain. She states she was experiencing wheezing when she initially presented to the ED but has since resolved. ROS All 13 systems reviewed and pertinent positives as per HPI. Constitutional: fatigue, No febrile, No nausea Eyes: no complaints ENT: no complaints Respiratory: cough, shortness of breath, wheezing, No sputum Cardiovascular: edema, orthopenea, No chest pain, No palpitations Gastrointestinal: other (abdominal swelling), No constipation, No decreased appetite, No diarrhea, No nausea, No pain Genitourinary: no complaints Musculoskeletal: no complaints Skin: no complaints Neurologic: no complaints Endocrine: no complaints Lymphatic: no complaints Psychological: no complaints Immunologic: no complaints PMH/Family/Social Past Medical History Medical History: congestive heart failure, hypertension Past Surgical History Past Surgical Hx: cholecystectomy, other Family History Significant Family History: no pertinent family hx Social History Alcohol Use: none Smoking Status: Former smoker Drug Use: none Exam/Review of Systems Vital Signs Vitals Vital Signs Date Time Temp Pulse Resp B/P Pulse Ox O2 Delivery O2 Flow Rate FiO2 12/06/16 09:28 80 18 101/71 100 Nasal Cannula 2.0 12/06/16 06:23 98.2 Exam Constitutional: alert, distress (respiratory distress with prolonged talking), oriented, well developed Psych: nl mood/affect Head: atraumatic, normocephalic Eyes: EOMI, PERRL ENMT: mucosa pink and moist Neck: jvd, supple Respiratory: clear to auscultation, diminished breath sounds, No crackles/rales Cardiovascular: edema, nl pulses, regular rate and rhythm Gastrointestinal: distended, non-tender, soft, No firm, No hepatomegaly, No rebound or guarding Genitourinary - Female: No CVA tenderness Musculoskeletal: nl extremities to inspection, No muscle weakness Extremities: edema, pitting pedal edema Neurological: SALES ACCOUNT COORDINATOR II-XII intact, nl mental status Skin: nl turgor Lymph: nl lymph nodes Labs Result Diagram: 12/06/1664312/06/16643 Medications Medications Current Medications Aspirin (Aspirin) 81 mg DAILY PO ; Start 12/07/16 at 09:00; Status UNV Carvedilol (Coreg) 3.125 mg BID PO ; Start 12/06/16 at 21:00; Status UNV Docusate Sodium (Colace) 100 mg Q12H PRN PO CONSTIPATION; Start 12/06/16 at 09: 30; Status UNV Lorazepam (Ativan) 0.5 mg HS PRN PO ANXIETY; Start 12/06/16 at 09:30; Status UNV Salmeterol Xinafoate/ Fluticasone (Advair 250/50 Diskus) 1 inh BID INH ; Start 12/06/16 at 21:00; Status UNV Spironolactone (Aldactone) 25 mg DAILY PO ; Start 12/07/16 at 09:00; Status UNV Furosemide (Lasix) 80 mg BID IV ; Start 12/06/16 at 18:00; Status UNV Albuterol (Proventil 0.083% (Neb)) 2.5 mg Q4 PRN HHN dyspnea, wheezing; Start 12/06/16 at 09:30; Status UNV Ondansetron HCl (Zofran Inj) 4 mg Q6H PRN IV NAUSEA AND/OR VOMITING; Start 12/06 at 09:30; Status UNV Acetaminophen (Tylenol Tab) 650 mg Q6H PRN PO PAIN LEVEL 1-3 OR FEVER; Start at 09:30; Status UNV Magnesium Hydroxide (Milk Of Mag) 30 ml DAILY PRN PO CONSTIPATION; Start at 09:30; Status UNV Enoxaparin Sodium (Lovenox) 40 mg DAILY SC ; Start 12/07/16 at 09:00; Status UNV JOHNATHAN HAYNES MD Dec 06, 2016 09:49
--- NOTE | 2016-12-06 11:30 | CONS ---
Date/Time of Note Date/Time of Note DATE: 12/06/16 TIME: 11:23 Assessment/Plan Assessment/Plan Additional Assessment/Plan Acute decompensated systolic congestive heart failure Cardiomyopathy with ejection fraction 20% with biventricular pacemaker and ICD Pulmonary hypertension -Patient tells me she has been compliant with medications but possibly noncompliance with fluid intake and sodium. Patient with improvement in symptoms with IV diuretic therapy. Given history of hypotension in the past, will decrease diuretic regimen to 40 mg IV twice daily with holding parameters for hypotension. Check serial cardiac enzymes. If blood pressure trend remains stable over the next 24 hours, would start AURA inhibitor or ARB for afterload reduction. Consultation Date/Type/Reason Admit Date/Time Nov 7, 9:30am Type of Consultation: cv Reason for Consultation Shortness of breath Hx of Present Illness This is a 56-year-old female with past medical history of severe cardiomyopathy , pulmonary hypertension who presents with progressive worsening shortness of breath, increased abdominal girth and lower extremity edema over the past 4 days. Patient denies exertional chest pain but does complain of dyspnea with exertion and with lying down flat. She tells me she is compliant with her medications but possibly has not been compliant with diet with increased fluid intake because of the warm weather as well as possible processed foods with increased sodium. Since being given direct therapy in the emergency room, she feels much better. Her shortness of breath is much better. She denies any dizziness, lightheadedness or palpitations. 12 point review of systems was performed with all pertinent positives and negatives mentioned above and all else is negative Past Medical History Medical History: coronary artery disease, hypertension Past Surgical History Past Surgical Hx: cholecystectomy, other (Biventricular pacemaker and ICD) Family History Significant Family History: no pertinent family hx Social History Smoking Status: Former smoker Exam/Review of Systems Vital Signs Vitals Vital Signs Date Time Temp Pulse Resp B/P Pulse Ox O2 Delivery O2 Flow Rate FiO2 12/06/16 09:28 80 18 101/71 100 Nasal Cannula 2.0 12/06/16 06:23 98.2 Exam No apparent distress, following commands Constitutional: alert, oriented Head: normocephalic Neck: supple Respiratory: other (Coarse breath sounds bilaterally, no wheezing) Cardiovascular: other (S1-S2 heard), regular rate and rhythm, systolic murmur Gastrointestinal: bowel sounds, non-tender, other (No guarding), soft Extremities: edema (Trace) Results Result Diagram: 12/06/16 0644 12/06/16 0644 Results 24 hrs Laboratory Tests Test 12/06/16 06:44 White Blood Count 5.0 # Red Blood Count 4.80 Hemoglobin 13.0 Hematocrit 42.7 Mean Corpuscular Volume 89.0 Mean Corpuscular Hemoglobin 27.1 L Mean Corpuscular Hemoglobin Concent 30.4 L Red Cell Distribution Width 15.2 H Platelet Count 179 Mean Platelet Volume 11.6 H Neutrophils % 66.3 Lymphocytes % 21.6 Monocytes % 10.3 Eosinophils % 1.0 Basophils % 0.6 Nucleated Red Blood Cells % 0.0 Neutrophils # (Manual) 3.3 Lymphocytes # 1.1 Monocytes # 0.5 Eosinophils # 0.1 Basophils # 0.0 Nucleated Red Blood Cells # 0.0 Sodium Level 141 Potassium Level 4.2 Chloride Level 102 Carbon Dioxide Level 33 H Anion Gap 10 Blood Urea Nitrogen 19 Creatinine 1.14 H Glucose Level 109 Calcium Level 9.4 Total Bilirubin 1.2 Direct Bilirubin 0.00 Indirect Bilirubin 1.2 H Aspartate Amino Transf (AST/SGOT) 44 Alanine Aminotransferase (ALT/SGPT) 46 Alkaline Phosphatase 88 Troponin I 0.036 B-Type Natriuretic Peptide 7700 H Total Protein 6.7 Albumin 3.9 Globulin 2.80 Albumin/Globulin Ratio 1.39 Lipase 59 Medications Medications Current Medications Aspirin (Aspirin) 81 mg DAILY PO ; Start 12/07/16 at 09:00 Carvedilol (Coreg) 3.125 mg BID PO ; Start 12/06/16 at 21:00 Docusate Sodium (Colace) 100 mg Q12H PRN PO CONSTIPATION; Start 12/06/16 at 09: 30 Lorazepam (Ativan) 0.5 mg HS PRN PO ANXIETY; Start 12/06/16 at 09:30 Salmeterol Xinafoate/ Fluticasone (Advair 250/50 Diskus) 1 inh BID INH ; Start 12/06/16 at 21:00 Spironolactone (Aldactone) 25 mg DAILY PO ; Start 12/07/16 at 09:00 Furosemide (Lasix) 80 mg BID IV ; Start 12/06/16 at 18:00 Ondansetron HCl (Zofran Inj) 4 mg Q6H PRN IV NAUSEA AND/OR VOMITING; Start 12/06 at 09:30 Acetaminophen (Tylenol Tab) 650 mg Q6H PRN PO PAIN LEVEL 1-3 OR FEVER; Start at 09:30 Magnesium Hydroxide (Milk Of Mag) 30 ml DAILY PRN PO CONSTIPATION; Start at 09:30 Enoxaparin Sodium (Lovenox) 40 mg DAILY SC ; Start 12/07/16 at 09:00 Procedures Procedures ECG with AV pacing Gwyn Paris DO Dec 06, 2016 11:29
[2016-12-06 15:06] LABS: CREATINE KINASE 61 IU/L (23-200)
[2016-12-06 15:20] LABS: CK-MB 0.68 ng/ml (0.0-2.4); TROPONIN-I < 0.012 ng/ml (0.00-0.12)
[2016-12-06] MEDS: FUROSEMIDE 40 MG INJ IV SCH (17:58)
[2016-12-06] MEDS ORDERED: FUROSEMIDE 40 MG INJ IV SCH (18:00)
[2016-12-06] MEDS: SALMETEROL/FLUTICASONE 250/50 INHA INH SCH (21:19)
[2016-12-07] VITALS (13 sets, daily range): BP systolic 96–119; BP diastolic 59–73; PULSE 69–72; RESP 18
[2016-12-07] MEDS ORDERED: LORAZEPAM 1 MG TAB ONE ×2 (01:06→22:37)
[2016-12-07] MEDS: LORAZEPAM 0.5 MG TAB PO PRN ×2 (01:11→22:41)
[2016-12-07] MEDS: FUROSEMIDE 40 MG INJ IV SCH ×2 (05:14→17:23)
[2016-12-07 08:04] LABS: ABNORMAL IP MESSAGE 1; BASOPHILS % 0.1 % (0.0-2.0); HEMATOCRIT 41.3 % (37.0-47.0); HEMOGLOBIN 12.9 g/dl (12.0-16.0); LYMPHOCYTES # 0.5 10^3/ul (0.8-2.9); LYMPHOCYTES % 4.8 % (15.0-51.0); MEAN CORPUSCULAR HEMOGLOBIN 27.4 pg (29.0-33.0); MEAN CORPUSCULAR HGB CONC 31.2 g/dl (32.0-37.0); MEAN CORPUSCULAR VOLUME 87.7 fl (82.0-101.0); MEAN PLATELET VOLUME 12.4 fl (7.4-10.4); MONOCYTE # 0.8 10^3/ul (0.3-0.9); MONOCYTES % 6.9 % (0.0-11.0); NEUTROPHILS % 87.7 % (39.0-77.0); PLATELET COUNT 183 10^3/UL (140-415); RED BLOOD COUNT 4.71 10^6/ul (4.20-5.40); RED CELL DISTRIBUTION WIDTH 14.8 % (11.5-14.5); WHITE BLOOD COUNT 10.9 10^3/ul (4.8-10.8)
[2016-12-07 08:20] LABS: POSITIVE DIFF @See below
[2016-12-07 08:39] LABS: ALBUMIN 3.9 g/dl (3.3-4.9); ALBUMIN/GLOBULIN RATIO 1.44; BILIRUBIN,INDIRECT 1.1 mg/dl (0-1.1); BILIRUBIN,TOTAL 1.1 mg/dl (0.2-1.3); CALCIUM 9.3 mg/dl (8.4-10.2); CREATININE 0.93 mg/dl (0.44-1.00); MAGNESIUM 2.2 mg/dl (1.7-2.5); POTASSIUM 4.3 mmol/L (3.5-5.1); TOTAL PROTEIN 6.6 g/dl (6.1-8.1)
[2016-12-07] MEDS: ASPIRIN 81 MG TAB PO SCH (09:04)
[2016-12-07] MEDS: SALMETEROL/FLUTICASONE 250/50 INHA INH SCH ×2 (09:04→20:24)
[2016-12-07] MEDS: SPIRONOLACTONE 25 MG TAB PO SCH (09:04)
[2016-12-07] MEDS: ENOXAPARIN 40 MG/0.4 ML SYG SC SCH (09:16)
--- NOTE | 2016-12-07 12:46 | PN ---
Date/Time of Note Date/Time of Note DATE: 12/07/16 TIME: 12:45 Assessment/Plan VTE Prophylaxis VTE Prophylaxis Intervention: LMWH Lines/Catheters IV Catheter Type (from [facility]): Peripheral IV Urinary Cath still in place: No Assessment/Plan Assessment/Plan 1. Acute on chronic decompensated systolic heart failure - Patient denies any possible triggers that may have caused her exacerbation. - Cardiology on board and appreciate recommendations. Will switch to PO diuretics tmrw and if remains stable will d/c tmrw afternoon. - Last ECHO 07/2016 showed moderate enlargement of LV, severe LV systolic dysfunction with EF 20%. Mild enlargement of right ventricle. MR, AR, TR, and NE -Lasix IV 40mg BID and will monitor I/O and daily weights. -530 output since admission - trops negative - BNP 7700 2. COPD - SOB appears to be more related to CHF exacerbation rather than COPD - Received solumedrol in the ED - Will continue home bronchodilators and if experiencing wheezing or cough with productive sputum will initiate steroid and antibiotics - PRN albuterol for SOB 3. WILEY- resolved - etiology could be cardio renal - Will continue to monitor while on diuretics 4. Severe Cardiomyopathy - ICD in place Subjective 24 Hr Interval Summary Free Text/Dictation Patient seen and examined. States feeling significantly better today and is starting to see the veins on her lower extremities. Denies any worsening shortness of breath, chest pain, dizziness, nausea, vomiting, or abdominal issues. Exam/Review of Systems Vital Signs Vitals Vital Signs Date Time Temp Pulse Resp B/P Pulse Ox O2 Delivery O2 Flow Rate FiO2 12/07/16 12:30 69 12/07/16 11:22 97.8 18 96/60 100 12/07/16 02:04 2.0 12/06/16 11:31 Nasal Cannula Intake and Output 12/06/16 12/06/16 12/07/16 15:00 23:00 07:00 Intake Total 500 ml 300 ml Output Total 550 ml 750 ml 3 ml Balance -550 ml -250 ml 297 ml Exam General: NAD, awake and alert CVS: regular rate and rhythm, no murmurs Lungs: CTA b/l. no wheezing or crackles Abd: soft, NT, ND. + BS Ext: trace edema LE b/l Results Result Diagram: 12/07/1670012/07/16700 Results 24 hrs Laboratory Tests Test 12/06/16 14:20 12/07/16 07:01 Creatine Kinase 61 Creatine Kinase Index 1.1 Creatinine Kinase MB (Mass) 0.68 Troponin I < 0.012 White Blood Count 10.9 #H Red Blood Count 4.71 Hemoglobin 12.9 Hematocrit 41.3 Mean Corpuscular Volume 87.7 Mean Corpuscular Hemoglobin 27.4 L Mean Corpuscular Hemoglobin Concent 31.2 L Red Cell Distribution Width 14.8 H Platelet Count 183 Mean Platelet Volume 12.4 H Neutrophils % 87.7 H Lymphocytes % 4.8 L Monocytes % 6.9 Eosinophils % 0.0 Basophils % 0.1 Nucleated Red Blood Cells % 0.0 Neutrophils # (Manual) 9.6 H Lymphocytes # 0.5 L Monocytes # 0.8 Eosinophils # 0.0 Basophils # 0.0 Nucleated Red Blood Cells # 0.0 Sodium Level 138 Potassium Level 4.3 Chloride Level 99 Carbon Dioxide Level 32 H Anion Gap 11 Blood Urea Nitrogen 22 H Creatinine 0.93 Glucose Level 112 Calcium Level 9.3 Magnesium Level 2.2 Total Bilirubin 1.1 Direct Bilirubin 0.00 Indirect Bilirubin 1.1 Aspartate Amino Transf (AST/SGOT) 77 H Alanine Aminotransferase (ALT/SGPT) 92 H Alkaline Phosphatase 85 Total Protein 6.6 Albumin 3.9 Globulin 2.70 Albumin/Globulin Ratio 1.44 Medications Medications Current Medications Aspirin (Aspirin) 81 mg DAILY PO Last administered on 12/07/16 09:04; Admin Dose 81 MG; Start 12/07/16 at 09:00 Carvedilol (Coreg) 3.125 mg BID PO Last administered on 12/07/16 09:05; Admin Dose 3.125 MG; Start 12/06/16 at 21:00 Docusate Sodium (Colace) 100 mg Q12H PRN PO CONSTIPATION; Start 12/06/16 at 09: 30 Lorazepam (Ativan) 0.5 mg HS PRN PO ANXIETY Last administered on 12/07/16 01:11 ; Admin Dose 0.5 MG; Start 12/06/16 at 09:30 Salmeterol Xinafoate/ Fluticasone (Advair 250/50 Diskus) 1 inh BID INH Last administered on 12/07/16 09:04; Admin Dose 1 INH; Start 12/06/16 at 21:00 Spironolactone (Aldactone) 25 mg DAILY PO Last administered on 12/07/16 09:04; Admin Dose 25 MG; Start 12/07/16 at 09:00 Ondansetron HCl (Zofran Inj) 4 mg Q6H PRN IV NAUSEA AND/OR VOMITING; Start 12/06 at 09:30 Acetaminophen (Tylenol Tab) 650 mg Q6H PRN PO PAIN LEVEL 1-3 OR FEVER; Start at 09:30 Magnesium Hydroxide (Milk Of Mag) 30 ml DAILY PRN PO CONSTIPATION; Start at 09:30 Enoxaparin Sodium (Lovenox) 40 mg DAILY SC Last administered on 12/07/16 09:16 ; Admin Dose 40 MG; Start 12/07/16 at 09:00 JOHNATHAN HAYNES MD Dec 07, 2016 12:46
--- NOTE | 2016-12-07 14:42 | CONS ---
Date/Time of Note Date/Time of Note DATE: 12/07/16 TIME: 14:39 Assessment/Plan Assessment/Plan Additional Assessment/Plan Acute decompensated systolic congestive heart failure Cardiomyopathy with ejection fraction 20% with biventricular pacemaker and ICD Pulmonary hypertension -Patient with significant improvement in symptoms of shortness of breath and edema. With switch to p.o. diuretics from tomorrow. Patient taking Entresto at home. Okay for patient to continue while in house. If symptoms continued to improve tomorrow and blood pressure renal function remains stable, DC planning Consultation Date/Type/Reason Admit Date/Time Dec 06, 2016 at 08:33 Initial Consult Date Type of Consultation: cv 24 HR Interval Summary Free Text/Dictation Patient with significant improvement in shortness of breath. Denies dizziness, chest pain or palpitations. Abdominal swelling has improved. Lower extremity edema has improved. Exam/Review of Systems Vital Signs Vitals Vital Signs Date Time Temp Pulse Resp B/P Pulse Ox O2 Delivery O2 Flow Rate FiO2 12/07/16 12:30 69 12/07/16 11:22 97.8 18 96/60 100 12/07/16 02:04 2.0 12/06/16 11:31 Nasal Cannula Intake and Output 12/06/16 12/06/16 12/07/16 14:59 22:59 06:59 Intake Total 500 ml 300 ml Output Total 550 ml 750 ml 3 ml Balance -550 ml -250 ml 297 ml Exam No apparent distress Constitutional: alert, oriented Head: normocephalic Neck: supple Respiratory: other (Coarse breath sounds bilaterally, no wheezing) Cardiovascular: other (S1-S2 heard), regular rate and rhythm Gastrointestinal: bowel sounds, non-tender, soft Extremities: other (No edema) Results Result Diagram: 12/07/16 0701 12/07/16 0701 Results 24 hrs Laboratory Tests Test 12/07/16 07:01 White Blood Count 10.9 #H Red Blood Count 4.71 Hemoglobin 12.9 Hematocrit 41.3 Mean Corpuscular Volume 87.7 Mean Corpuscular Hemoglobin 27.4 L Mean Corpuscular Hemoglobin Concent 31.2 L Red Cell Distribution Width 14.8 H Platelet Count 183 Mean Platelet Volume 12.4 H Neutrophils % 87.7 H Lymphocytes % 4.8 L Monocytes % 6.9 Eosinophils % 0.0 Basophils % 0.1 Nucleated Red Blood Cells % 0.0 Neutrophils # (Manual) 9.6 H Lymphocytes # 0.5 L Monocytes # 0.8 Eosinophils # 0.0 Basophils # 0.0 Nucleated Red Blood Cells # 0.0 Sodium Level 138 Potassium Level 4.3 Chloride Level 99 Carbon Dioxide Level 32 H Anion Gap 11 Blood Urea Nitrogen 22 H Creatinine 0.93 Glucose Level 112 Calcium Level 9.3 Magnesium Level 2.2 Total Bilirubin 1.1 Direct Bilirubin 0.00 Indirect Bilirubin 1.1 Aspartate Amino Transf (AST/SGOT) 77 H Alanine Aminotransferase (ALT/SGPT) 92 H Alkaline Phosphatase 85 Total Protein 6.6 Albumin 3.9 Globulin 2.70 Albumin/Globulin Ratio 1.44 Medications Medications Current Medications Aspirin (Aspirin) 81 mg DAILY PO Last administered on 12/07/16 09:04; Admin Dose 81 MG; Start 12/07/16 at 09:00 Carvedilol (Coreg) 3.125 mg BID PO Last administered on 12/07/16 09:05; Admin Dose 3.125 MG; Start 12/06/16 at 21:00 Docusate Sodium (Colace) 100 mg Q12H PRN PO CONSTIPATION; Start 12/06/16 at 09: 30 Lorazepam (Ativan) 0.5 mg HS PRN PO ANXIETY Last administered on 12/07/16 01:11 ; Admin Dose 0.5 MG; Start 12/06/16 at 09:30 Salmeterol Xinafoate/ Fluticasone (Advair 250/50 Diskus) 1 inh BID INH Last administered on 12/07/16 09:04; Admin Dose 1 INH; Start 12/06/16 at 21:00 Spironolactone (Aldactone) 25 mg DAILY PO Last administered on 12/07/16 09:04; Admin Dose 25 MG; Start 12/07/16 at 09:00 Ondansetron HCl (Zofran Inj) 4 mg Q6H PRN IV NAUSEA AND/OR VOMITING; Start 12/06 at 09:30 Acetaminophen (Tylenol Tab) 650 mg Q6H PRN PO PAIN LEVEL 1-3 OR FEVER; Start at 09:30 Magnesium Hydroxide (Milk Of Mag) 30 ml DAILY PRN PO CONSTIPATION; Start at 09:30 Enoxaparin Sodium (Lovenox) 40 mg DAILY SC Last administered on 12/07/16t 09:16 ; Admin Dose 40 MG; Start 12/07/16 at 09:00 Gwyn Paris DO Dec 07, 2016 14:41
[2016-12-08] VITALS (14 sets, daily range): BP systolic 89–124; BP diastolic 52–68; PULSE 69–81; RESP 15–20
[2016-12-08] MEDS ORDERED: FUROSEMIDE 40 MG TAB PO SCH (06:00)
[2016-12-08 08:25] LABS: BASOPHILS % 0.4 % (0.0-2.0); EOSINOPHILS # 0.1 10^3/ul (0.0-0.5); EOSINOPHILS % 0.8 % (0.0-7.0); HEMATOCRIT 42.5 % (37.0-47.0); HEMOGLOBIN 12.9 g/dl (12.0-16.0); LYMPHOCYTES # 1.4 10^3/ul (0.8-2.9); LYMPHOCYTES % 19.1 % (15.0-51.0); MEAN CORPUSCULAR HGB CONC 30.4 g/dl (32.0-37.0); MEAN CORPUSCULAR VOLUME 88.9 fl (82.0-101.0); MEAN PLATELET VOLUME 11.8 fl (7.4-10.4); MONOCYTE # 0.6 10^3/ul (0.3-0.9); MONOCYTES % 8.2 % (0.0-11.0); NEUTROPHILS % 71.2 % (39.0-77.0); PLATELET COUNT 174 10^3/UL (140-415); RED BLOOD COUNT 4.78 10^6/ul (4.20-5.40); RED CELL DISTRIBUTION WIDTH 15.5 % (11.5-14.5); WHITE BLOOD COUNT 7.2 10^3/ul (4.8-10.8)
[2016-12-08 08:42] LABS: ALBUMIN 3.6 g/dl (3.3-4.9); CALCIUM 9.5 mg/dl (8.4-10.2); CREATININE 1.08 mg/dl (0.44-1.00); MAGNESIUM 2.2 mg/dl (1.7-2.5); PHOSPHORUS 3.7 mg/dl (2.5-4.9); POTASSIUM 3.9 mmol/L (3.5-5.1)
[2016-12-08] MEDS: SALMETEROL/FLUTICASONE 250/50 INHA INH SCH ×2 (09:35→20:44)
[2016-12-08] MEDS: ENOXAPARIN 40 MG/0.4 ML SYG SC SCH (09:37)
[2016-12-08] MEDS: ASPIRIN 81 MG TAB PO SCH (09:39)
[2016-12-08] MEDS: SPIRONOLACTONE 25 MG TAB PO SCH (09:40)
--- NOTE | 2016-12-08 10:02 | PN ---
Date/Time of Note Date/Time of Note DATE: 12/08/16 TIME: 10:01 Assessment/Plan VTE Prophylaxis VTE Prophylaxis Intervention: SCD's Lines/Catheters IV [facility]from [facility] Saline Lock Urinary Cath still in place: No Assessment/Plan Assessment/Plan Acute decompensated systolic congestive heart failure Cardiomyopathy with ejection fraction 20% with biventricular pacemaker and ICD Pulmonary hypertension -Patient with significant improvement in symptoms of shortness of breath and edema. change to oral diuretics today Patient taking Entresto at home. Okay for patient to continue while in house. If symptoms continued to improve tomorrow and blood pressure renal function remains stable, DC planning today Subjective 24 Hr Interval Summary Free Text/Dictation the aptient with no sytmptoms Exam/Review of Systems Vital Signs Vitals Vital Signs Date Time Temp Pulse Resp B/P Pulse Ox O2 Delivery O2 Flow Rate FiO2 12/08/16 08:10 69 12/08/16 07:59 98.0 20 95/68 99 12/08/16 01:49 2.0 12/06/16 11:31 Nasal Cannula Intake and Output 12/07/16 12/07/16 12/08/16 15:00 23:00 07:00 Intake Total 600 ml Balance 600 ml Results Result Diagram: 12/08/16 0736 12/08/16 0736 Results 24 hrs Laboratory Tests Test 12/08/16 07:36 White Blood Count 7.2 # Red Blood Count 4.78 Hemoglobin 12.9 Hematocrit 42.5 Mean Corpuscular Volume 88.9 Mean Corpuscular Hemoglobin 27.0 L Mean Corpuscular Hemoglobin Concent 30.4 L Red Cell Distribution Width 15.5 H Platelet Count 174 Mean Platelet Volume 11.8 H Neutrophils % 71.2 Lymphocytes % 19.1 Monocytes % 8.2 Eosinophils % 0.8 Basophils % 0.4 Nucleated Red Blood Cells % 0.0 Neutrophils # (Manual) 5.1 Lymphocytes # 1.4 Monocytes # 0.6 Eosinophils # 0.1 Basophils # 0.0 Nucleated Red Blood Cells # 0.0 Sodium Level 137 Potassium Level 3.9 Chloride Level 100 Carbon Dioxide Level 32 H Anion Gap 9 Blood Urea Nitrogen 27 H Creatinine 1.08 H Glucose Level 87 Calcium Level 9.5 Phosphorus Level 3.7 Magnesium Level 2.2 Albumin 3.6 Medications Medications Current Medications Aspirin (Aspirin) 81 mg DAILY PO Last administered on 12/08/16 09:39; Admin Dose 81 MG; Start 12/07/16 at 09:00 Carvedilol (Coreg) 3.125 mg BID PO Last administered on 12/07/16 20:24; Admin Dose 3.125 MG; Start 12/06/16 at 21:00 Docusate Sodium (Colace) 100 mg Q12H PRN PO CONSTIPATION; Start 12/06/16 at 09: 30 Lorazepam (Ativan) 0.5 mg HS PRN PO ANXIETY Last administered on 12/07/16 22:41 ; Admin Dose 0.5 MG; Start 12/06/16 at 09:30 Salmeterol Xinafoate/ Fluticasone (Advair 250/50 Diskus) 1 inh BID INH Last administered on 12/08/16 09:35; Admin Dose 1 INH; Start 12/06/16 at 21:00 Spironolactone (Aldactone) 25 mg DAILY PO Last administered on 12/08/16 09:40; Admin Dose 25 MG; Start 12/07/16 at 09:00 Ondansetron HCl (Zofran Inj) 4 mg Q6H PRN IV NAUSEA AND/OR VOMITING; Start 12/06 at 09:30 Acetaminophen (Tylenol Tab) 650 mg Q6H PRN PO PAIN LEVEL 1-3 OR FEVER; Start at 09:30 Magnesium Hydroxide (Milk Of Mag) 30 ml DAILY PRN PO CONSTIPATION; Start at 09:30 Enoxaparin Sodium (Lovenox) 40 mg DAILY SC Last administered on 12/08/16 09:37 ; Admin Dose 40 MG; Start 12/07/16 at 09:00 Furosemide (Lasix) 40 mg DAILY@06 PO Last administered on 12/08/16 06:40; Admin Dose 40 MG; Start 12/08/16 at 06:00 YAOKV SHIELDS MD Dec 08, 2016 10:02
--- NOTE | 2016-12-08 13:45 | PN ---
Date/Time of Note Date/Time of Note DATE: 12/08/16 TIME: 13:41 Assessment/Plan VTE Prophylaxis VTE Prophylaxis Intervention: LMWH Lines/Catheters IV Catheter Type (from [facility]): Saline Lock Urinary Cath still in place: No Assessment/Plan Assessment/Plan 1. Acute on chronic decompensated systolic heart failure - Switched to PO diuretics this am and will continue monitoring I/O and daily weights. - Cardiology on board and recommendations appreciated. if continues to improve tomorrow, will d/c home - Patient denies any possible triggers that may have caused her exacerbation. - On Entreso and okay to take while inpatient - Last ECHO 07/2016 showed moderate enlargement of LV, severe LV systolic dysfunction with EF 20%. Mild enlargement of right ventricle. MR, AR, TR, and [place] 2. WILEY - may be secondary to diuresis - Cr 1.08 and will continue to monitor 3. COPD - SOB appears to be more related to CHF exacerbation rather than COPD - Will continue home bronchodilators - PRN albuterol for SOB 4. Severe Cardiomyopathy - ICD in place Subjective 24 Hr Interval Summary Free Text/Dictation Patient resting comfortably in bed. She was getting fatigued and BP check showed SBP in 90s. Denies any dizziness, lightheadedness, chest pain or shortness of breath. Patient states feeling better and disappointed wont be able to go home today. Exam/Review of Systems Vital Signs Vitals Vital Signs Date Time Temp Pulse Resp B/P Pulse Ox O2 Delivery O2 Flow Rate FiO2 12/08/16 12:04 69 12/08/16 11:23 97.9 20 89/58 99 12/08/16 01:49 2.0 12/06/16 11:31 Nasal Cannula Intake and Output 12/07/16 12/07/16 12/08/16 15:00 23:00 07:00 Intake Total 600 ml Balance 600 ml Exam General: NAD, awake and alert CVS: regular rate and rhythm, no murmurs Lungs: CTA b/l. no wheezing or crackles Abd: soft, NT, ND. + BS. no rebound or guarding Ext: trace edema LE b/l Results Result Diagram: 12/08/16 0736 12/08/16 0736 Results 24 hrs Laboratory Tests Test 12/08/16 07:36 White Blood Count 7.2 # Red Blood Count 4.78 Hemoglobin 12.9 Hematocrit 42.5 Mean Corpuscular Volume 88.9 Mean Corpuscular Hemoglobin 27.0 L Mean Corpuscular Hemoglobin Concent 30.4 L Red Cell Distribution Width 15.5 H Platelet Count 174 Mean Platelet Volume 11.8 H Neutrophils % 71.2 Lymphocytes % 19.1 Monocytes % 8.2 Eosinophils % 0.8 Basophils % 0.4 Nucleated Red Blood Cells % 0.0 Neutrophils # (Manual) 5.1 Lymphocytes # 1.4 Monocytes # 0.6 Eosinophils # 0.1 Basophils # 0.0 Nucleated Red Blood Cells # 0.0 Sodium Level 137 Potassium Level 3.9 Chloride Level 100 Carbon Dioxide Level 32 H Anion Gap 9 Blood Urea Nitrogen 27 H Creatinine 1.08 H Glucose Level 87 Calcium Level 9.5 Phosphorus Level 3.7 Magnesium Level 2.2 Albumin 3.6 Medications Medications Current Medications Aspirin (Aspirin) 81 mg DAILY PO Last administered on 12/08/16 09:39; Admin Dose 81 MG; Start 12/07/16 at 09:00 Carvedilol (Coreg) 3.125 mg BID PO Last administered on 12/07/16 20:24; Admin Dose 3.125 MG; Start 12/06/16 at 21:00 Docusate Sodium (Colace) 100 mg Q12H PRN PO CONSTIPATION; Start 12/06/16 at 09: 30 Lorazepam (Ativan) 0.5 mg HS PRN PO ANXIETY Last administered on 12/07/16 22:41 ; Admin Dose 0.5 MG; Start 12/06/16 at 09:30 Salmeterol Xinafoate/ Fluticasone (Advair 250/50 Diskus) 1 inh BID INH Last administered on 12/08/16 09:35; Admin Dose 1 INH; Start 12/06/16 at 21:00 Spironolactone (Aldactone) 25 mg DAILY PO Last administered on 12/08/16 09:40; Admin Dose 25 MG; Start 12/07/16 at 09:00 Ondansetron HCl (Zofran Inj) 4 mg Q6H PRN IV NAUSEA AND/OR VOMITING; Start 12/06 at 09:30 Acetaminophen (Tylenol Tab) 650 mg Q6H PRN PO PAIN LEVEL 1-3 OR FEVER; Start at 09:30 Magnesium Hydroxide (Milk Of Mag) 30 ml DAILY PRN PO CONSTIPATION; Start at 09:30 Enoxaparin Sodium (Lovenox) 40 mg DAILY SC Last administered on 12/08/16t 09:37 ; Admin Dose 40 MG; Start 12/07/16 at 09:00 Furosemide (Lasix) 60 mg DAILY@06 PO ; Start 12/09/16 at 06:00 JOHNATHAN HAYNES MD Dec 08, 2016 13:45
[2016-12-09] VITALS (13 sets, daily range): BP systolic 91–105; BP diastolic 53–70; PULSE 69–111; RESP 15–20
[2016-12-09 02:03] LABS: CALCIUM 9.1 mg/dl (8.4-10.2); CREATININE 1.05 mg/dl (0.44-1.00); MAGNESIUM 2.1 mg/dl (1.7-2.5); POTASSIUM 3.8 mmol/L (3.5-5.1)
[2016-12-09] MEDS: FUROSEMIDE 40 MG TAB PO SCH (05:33)
[2016-12-09] MEDS: SPIRONOLACTONE 25 MG TAB PO SCH (09:00)
[2016-12-09] MEDS: SALMETEROL/FLUTICASONE 250/50 INHA INH SCH ×2 (09:22→21:30)
[2016-12-09] MEDS: ASPIRIN 81 MG TAB PO SCH (09:23)
[2016-12-09] MEDS: ENOXAPARIN 40 MG/0.4 ML SYG SC SCH (09:24)
--- NOTE | 2016-12-09 14:42 | PN ---
Date/Time of Note Date/Time of Note DATE: 12/09/16 TIME: 14:41 Assessment/Plan VTE Prophylaxis VTE Prophylaxis Intervention: LMWH Lines/Catheters IV Catheter Type (from Nrs): Saline Lock Urinary Cath still in place: No Assessment/Plan Assessment/Plan 1. Acute on chronic decompensated systolic heart failure - On PO Lasix and continues to diurese but slowing down urine output - Cardiology on board and recommendations appreciated. - Patient denies any possible triggers that may have caused her exacerbation. - On Entreso and okay to take while inpatient - Last ECHO 07/2016 showed moderate enlargement of LV, severe LV systolic dysfunction with EF 20%. Mild enlargement of right ventricle. MR, AR, TR, and [place] 2. WILEY - may be secondary to diuresis - Cr 1.05 and will continue to monitor - If continues to normalize will be good for discharge 3. COPD - SOB appears to be more related to CHF exacerbation rather than COPD - Will continue home bronchodilators - PRN albuterol for SOB 4. Severe Cardiomyopathy - ICD in place Subjective 24 Hr Interval Summary Free Text/Dictation patient still experiencing labored breathing with ambulation. Not urinating as much today as well. Denies any new complaints and no acute overnight events Exam/Review of Systems Vital Signs Vitals Vital Signs Date Time Temp Pulse Resp B/P Pulse Ox O2 Delivery O2 Flow Rate FiO2 12/09/16 12:24 97.8 69 20 101/66 100 12/08/16 19:35 2.0 12/06/16 11:31 Nasal Cannula Intake and Output 12/08/16 12/08/16 12/09/16 15:00 23:00 07:00 Intake Total 303 ml 600 ml 350 ml Output Total 3 ml 3 ml Balance 300 ml 597 ml 350 ml Exam General: NAD, awake and alert CVS: regular rate and rhythm, no murmurs Lungs: CTA b/l. no wheezing or crackles Abd: soft, NT, ND. + BS. no rebound or guarding Ext: trace edema LE b/l Skin: nl skin turgor Results Result Diagram: 12/08/16 0736 12/09/16 0121 Results 24 hrs Laboratory Tests Test 12/09/16 01:21 Sodium Level 139 Potassium Level 3.8 Chloride Level 100 Carbon Dioxide Level 31 Anion Gap 12 Blood Urea Nitrogen 27 H Creatinine 1.05 H Glucose Level 102 Calcium Level 9.1 Magnesium Level 2.1 Thyroid Stimulating Hormone (TSH) 1.980 Medications Medications Current Medications Aspirin (Aspirin) 81 mg DAILY PO Last administered on 12/09/16 09:23; Admin Dose 81 MG; Start 12/07/16 at 09:00 Carvedilol (Coreg) 3.125 mg BID PO Last administered on 12/07/16 20:24; Admin Dose 3.125 MG; Start 12/06/16 at 21:00 Docusate Sodium (Colace) 100 mg Q12H PRN PO CONSTIPATION; Start 12/06/16 at 09: 30 Lorazepam (Ativan) 0.5 mg HS PRN PO ANXIETY Last administered on 12/07/16 22:41 ; Admin Dose 0.5 MG; Start 12/06/16 at 09:30 Salmeterol Xinafoate/ Fluticasone (Advair 250/50 Diskus) 1 inh BID INH Last administered on 12/09/16 09:22; Admin Dose 1 INH; Start 12/06/16 at 21:00 Spironolactone (Aldactone) 25 mg DAILY PO Last administered on 12/08/16 09:40; Admin Dose 25 MG; Start 12/07/16 at 09:00 Ondansetron HCl (Zofran Inj) 4 mg Q6H PRN IV NAUSEA AND/OR VOMITING; Start 12/06 at 09:30 Acetaminophen (Tylenol Tab) 650 mg Q6H PRN PO PAIN LEVEL 1-3 OR FEVER; Start at 09:30 Magnesium Hydroxide (Milk Of Mag) 30 ml DAILY PRN PO CONSTIPATION; Start at 09:30 Enoxaparin Sodium (Lovenox) 40 mg DAILY SC Last administered on 12/09/16 09:24 ; Admin Dose 40 MG; Start 12/07/16 at 09:00 Furosemide (Lasix) 60 mg DAILY@06 PO ; Start 12/09/16 at 06:00 JOHNATHAN HAYNES MD Dec 09, 2016 14:42
[2016-12-09] MEDS ORDERED: LORAZEPAM 1 MG TAB PO PRN (21:20)
[2016-12-10] VITALS (10 sets, daily range): BP systolic 95–108; BP diastolic 53–74; PULSE 69–90; RESP 16–18
[2016-12-10] MEDS ORDERED: LORAZEPAM 1 MG TAB PO SCH (04:24)
[2016-12-10] MEDS: FUROSEMIDE 40 MG TAB PO SCH (05:31)
[2016-12-10 07:47] LABS: BASOPHILS % 0.6 % (0.0-2.0); EOSINOPHILS # 0.1 10^3/ul (0.0-0.5); EOSINOPHILS % 1.2 % (0.0-7.0); HEMATOCRIT 40.5 % (37.0-47.0); HEMOGLOBIN 12.7 g/dl (12.0-16.0); LYMPHOCYTES % 21.1 % (15.0-51.0); MEAN CORPUSCULAR HGB CONC 31.4 g/dl (32.0-37.0); MEAN CORPUSCULAR VOLUME 89.2 fl (82.0-101.0); MEAN PLATELET VOLUME 11.3 fl (7.4-10.4); MONOCYTE # 0.7 10^3/ul (0.3-0.9); MONOCYTES % 13.4 % (0.0-11.0); NEUTROPHILS % 63.3 % (39.0-77.0); PLATELET COUNT 160 10^3/UL (140-415); RED BLOOD COUNT 4.54 10^6/ul (4.20-5.40); WHITE BLOOD COUNT 4.9 10^3/ul (4.8-10.8)
[2016-12-10 08:29] LABS: ALBUMIN 3.6 g/dl (3.3-4.9); CALCIUM 9.1 mg/dl (8.4-10.2); CREATININE 0.99 mg/dl (0.44-1.00); MAGNESIUM 2.2 mg/dl (1.7-2.5); PHOSPHORUS 4.1 mg/dl (2.5-4.9); POTASSIUM 3.7 mmol/L (3.5-5.1)
[2016-12-10] MEDS: SPIRONOLACTONE 25 MG TAB PO SCH (08:38)
[2016-12-10] MEDS: ASPIRIN 81 MG TAB PO SCH (08:42)
[2016-12-10] MEDS: SALMETEROL/FLUTICASONE 250/50 INHA INH SCH (08:43)
[2016-12-10] MEDS: ENOXAPARIN 40 MG/0.4 ML SYG SC SCH (08:45)
[2016-12-10] MEDS ORDERED: FURO40TA4 PO (10:18)
--- NOTE | 2016-12-10 10:24 | DS ---
Date/Time of Note Date/Time of Note DATE: 12/10/16 TIME: 10:19 Discharge Summary Admission/Discharge Info Admit Date/Time Dec 06, 2016 at 08:33 Discharge Date/Time Discharge Diagnosis 1. Acute on chronic decompensated systolic heart failure, improved, follow up with cardiology 2. Dilated cardiomyopathy, s/p AICD, stable, follow up with cardiology 3. Acute renal injury, resolved 4. COPD, stable Patient Condition: Stable Hx of Present Illness 56 yo F with PMH COPD, systolic CHF with ICD, essential HTN presented to ED with c/o worsening SOB, abdominal swelling, and b/l LE swelling for the past 4 days. Patients son was at bedside as well. She states that she usually is able to exercise for an hour a day but for the past few days has been having difficulty ambulating secondary to labored breathing and now has progressed to SOB at rest. She admits to having gained 5 lbs in the past 2 days. She increased her lasix intake with no relief as well. She states she has associated dizziness and orthopnea. Patient states she does try to follow low salt diet and limit her fluid intake. Denies any chest pain, palpitations, LOC, nausea, vomiting, or abdominal pain. She states she was experiencing wheezing when she initially presented to the ED but has since resolved. Hospital Course Patient's shortness of breath improved with increase of diuretics. She will be discharged with lasix 60 mg po daily instead of 40 mg po daily. BUN/Cr went up to 27/1.08 that improved to 22/0.99 on 12/10/2016. Home Meds Active Scripts Furosemide* (Furosemide*) 40 Mg Tablet, 60 MG PO DAILY@06 for 30 Days, TAB Prov:MARY DAMON MD 12/10/16 Albuterol Sulfate* (Ventolin HFA*) 18 Gm Hfa.aer.ad, 2 PUFF INHALATION Q4H, #1 INHALER Prov:APOLLO ORELLANA 08/25/16 Salmeterol Xinaf/Fluticasone* (Advair*) 250-50 Diskus Inhaler, 1 INH INHALATION BID, #1 INHALER Prov:APOLLO ORELLANA 08/25/16 Docusate Sodium (Dok) 100 Mg Capsule, 100 MG PO Q12H Y for CONSTIPATION, #30 CAP Prov:APOLLO ORELLANA 08/25/16 Reported Medications Spironolactone* (Aldactone*) 25 Mg Tablet, 25 MG PO DAILY, #30 TAB 12/06/16 Lorazepam* (Lorazepam*) 0.5 Mg Tablet, 0.5 MG PO HS Y for ANXIETY, TAB 12/06/16 Carvedilol* (Coreg*) 3.125 Mg Tablet, 3.125 MG PO BID, #60 TAB 12/06/16 Aspirin* (Aspirin* Chew) 81 Mg Tab.chew, 81 MG PO DAILY, TAB.CHEW 12/06/16 Discontinued Reported Medications Furosemide* (Furosemide*) 40 Mg Tablet, 40 MG PO DAILY, TAB 12/06/16 Ondansetron Hcl* (Ondansetron Hcl*) 4 Mg Tablet, 12 MG PO BID Y for NAUSEA AND OR VOMITING, TAB 08/20/16 Discontinued Scripts Pantoprazole* (Protonix*) 40 Mg Tablet.dr, 40 MG PO BID for 30 Days, TAB Prov:REGAPOLLO RILEY 08/25/16 Furosemide* (Furosemide*) 40 Mg Tablet, 40 MG PO DAILY@06 for 30 Days, TAB Prov:REGAPOLLO RILEY 08/25/16 Aspirin (Aspirin) 81 Mg Chew, 81 MG PO DAILY for 30 Days, TAB Prov:APOLLO ORELLANA 08/25/16 Metoclopramide* (Reglan*) 10 Mg Tablet, 10 MG PO Q6 Y for NAUSEA AND/OR VOMITING , #10 TAB Prov:KT GUERRERO DO 08/20/16 Carvedilol* (Carvedilol*) 3.125 Mg Tablet, 3.125 MG PO BID, #60 TAB 3 Refills Prov:DIDIER HERRERA 01/23/16 Follow-up Plan cardiology in two weeks PCP in one week Primary Care Provider Stephan Nuñez Pending Labs Laboratory Tests Test 12/10/16 06:35 White Blood Count 4.910^3/ul (4.8-10.8) Red Blood Count 4.5410^6/ul (4.20-5.40) Hemoglobin 12.7g/dl (12.0-16.0) Hematocrit 40.5% (37.0-47.0) Mean Corpuscular Volume 89.2fl (82.0-101.0) Mean Corpuscular Hemoglobin 28.0pg (29.0-33.0) Mean Corpuscular Hemoglobin Concent 31.4g/dl (32.0-37.0) Red Cell Distribution Width 15.0% (11.5-14.5) Platelet Count 00624^3/UL (140-415) Mean Platelet Volume 11.3fl (7.4-10.4) Neutrophils % 63.3% (39.0-77.0) Lymphocytes % 21.1% (15.0-51.0) Monocytes % 13.4% (0.0-11.0) Eosinophils % 1.2% (0.0-7.0) Basophils % 0.6% (0.0-2.0) Nucleated Red Blood Cells % 0.0/100WBC (0.0-0.0) Neutrophils # (Manual) 3.110^3/ul (1.7-7.5) Lymphocytes # 1.010^3/ul (0.8-2.9) Monocytes # 0.710^3/ul (0.3-0.9) Eosinophils # 0.110^3/ul (0.0-0.5) Basophils # 0.010^3/ul (0.0-0.1) Nucleated Red Blood Cells # 0.010^3/ul (0.0-0.0) Sodium Level 138mmol/L (135-144) Potassium Level 3.7mmol/L (3.5-5.1) Chloride Level 101mmol/L (97-110) Carbon Dioxide Level 31mmol/L (21-31) Anion Gap 10 (8-16) Blood Urea Nitrogen 22mg/dl (7-20) Creatinine 0.99mg/dl (0.44-1.00) Glucose Level 84mg/dl (70-220) Calcium Level 9.1mg/dl (8.4-10.2) Phosphorus Level 4.1mg/dl (2.5-4.9) Magnesium Level 2.2mg/dl (1.7-2.5) Albumin 3.6g/dl (3.3-4.9) MARY DAMON MD Dec 10, 2016 10:24
[2016-12-10] MEDS ORDERED: LORAZEPAM 1 MG TAB PO ONE (11:30)
--- NOTE | 2016-12-10 16:21 | CONS ---
Date/Time of Note Date/Time of Note DATE: 12/10/16 TIME: 16:20 Assessment/Plan Assessment/Plan Additional Assessment/Plan Acute decompensated systolic congestive heart failure Cardiomyopathy with ejection fraction 20% with biventricular pacemaker and ICD Pulmonary hypertension -Continue maintenance diuretics, appears near euvolemic. DC planning Consultation Date/Type/Reason Admit Date/Time Dec 06, 2016 at 08:33 Type of Consultation: cv 24 HR Interval Summary Free Text/Dictation Denies shortness of breath, dizziness or palpitations Exam/Review of Systems Vital Signs Vitals Vital Signs Date Time Temp Pulse Resp B/P Pulse Ox O2 Delivery O2 Flow Rate FiO2 12/10/16 16:08 81 12/10/16 11:48 98.0 17 103/67 100 12/09/16 20:50 21 12/08/16 19:35 2.0 12/06/16 11:31 Nasal Cannula Intake and Output 12/09/16 12/09/16 12/10/16 15:00 23:00 07:00 Intake Total 750 ml 250 ml Balance 750 ml 250 ml Exam No apparent distress Constitutional: alert, oriented Head: normocephalic Respiratory: clear to auscultation, normal air movement Cardiovascular: other (S1-S2 heard), regular rate and rhythm Gastrointestinal: bowel sounds, non-tender, soft Extremities: other (No edema) Results Result Diagram: 12/10/16 0635 12/10/16 0635 Results 24 hrs Laboratory Tests Test 12/10/16 06:35 White Blood Count 4.9 # Red Blood Count 4.54 Hemoglobin 12.7 Hematocrit 40.5 Mean Corpuscular Volume 89.2 Mean Corpuscular Hemoglobin 28.0 L Mean Corpuscular Hemoglobin Concent 31.4 L Red Cell Distribution Width 15.0 H Platelet Count 160 Mean Platelet Volume 11.3 H Neutrophils % 63.3 Lymphocytes % 21.1 Monocytes % 13.4 H Eosinophils % 1.2 Basophils % 0.6 Nucleated Red Blood Cells % 0.0 Neutrophils # (Manual) 3.1 Lymphocytes # 1.0 Monocytes # 0.7 Eosinophils # 0.1 Basophils # 0.0 Nucleated Red Blood Cells # 0.0 Sodium Level 138 Potassium Level 3.7 Chloride Level 101 Carbon Dioxide Level 31 Anion Gap 10 Blood Urea Nitrogen 22 H Creatinine 0.99 Glucose Level 84 Calcium Level 9.1 Phosphorus Level 4.1 Magnesium Level 2.2 Albumin 3.6 Medications Medications Current Medications Aspirin (Aspirin) 81 mg DAILY PO Last administered on 12/10/16 08:42; Admin Dose 81 MG; Start 12/07/16 at 09:00 Carvedilol (Coreg) 3.125 mg BID PO Last administered on 12/07/16 20:24; Admin Dose 3.125 MG; Start 12/06/16 at 21:00 Docusate Sodium (Colace) 100 mg Q12H PRN PO CONSTIPATION; Start 12/06/16 at 09: 30 Salmeterol Xinafoate/ Fluticasone (Advair 250/50 Diskus) 1 inh BID INH Last administered on 12/10/16 08:43; Admin Dose 1 INH; Start 12/06/16 at 21:00 Spironolactone (Aldactone) 25 mg DAILY PO Last administered on 12/08/16 09:40; Admin Dose 25 MG; Start 12/07/16 at 09:00 Ondansetron HCl (Zofran Inj) 4 mg Q6H PRN IV NAUSEA AND/OR VOMITING; Start 12/06 at 09:30 Acetaminophen (Tylenol Tab) 650 mg Q6H PRN PO PAIN LEVEL 1-3 OR FEVER Last administered on 12/10/16 11:54; Admin Dose 650 MG; Start 12/06/16 at 09:30 Magnesium Hydroxide (Milk Of Mag) 30 ml DAILY PRN PO CONSTIPATION; Start at 09:30 Enoxaparin Sodium (Lovenox) 40 mg DAILY SC Last administered on 12/10/16 08:45 ; Admin Dose 40 MG; Start 12/07/16 at 09:00 Furosemide (Lasix) 60 mg DAILY@06 PO ; Start 12/09/16 at 06:00 Lorazepam (Ativan) 0.5 mg HS PRN PO ANXIETY; Start 12/09/16 at 21:20 Gwyn Paris DO Dec 10, 2016 16:21
== END 2016-12-10 17:17 | disposition home or self-care (01) | DRG 291 ==
LOC: E/R 06:16 → MS4 08:33
PROVIDERS: ADMIT Internal Medicine; ATTEND Internal Medicine
DX: I11.0 Hypertensive heart disease with heart failure (principal); J96.01 Acute respiratory failure with hypoxia; N17.9 Acute kidney failure, unspecified; I25.10 Atherosclerotic heart disease of native coronary artery without angina pectoris; I50.23 Acute on chronic systolic (congestive) heart failure; I42.9 Cardiomyopathy, unspecified; J44.9 Chronic obstructive pulmonary disease, unspecified; I27.2 Other secondary pulmonary hypertension; Z87.891 Personal history of nicotine dependence; Z79.82 Long term (current) use of aspirin; Z95.810 Presence of automatic (implantable) cardiac defibrillator
CPT/HCPCS: 36415; 71010; 80048; 80053; 80069; 82550; 82553; 83690; 83735; 83880; 84443; 84484; 85025; 93005; 94644; 96374; 96375; J1650; J1940; J2930

== ENCOUNTER 2017-01-12 23:37 | Emergency (ER) | payer OTHER ==
[~2017-01-12] VITALS: Ht 172.7 cm; Wt 98.5 kg
[~2017-01-12 23:37] MED LIST changes: +CARV3.12 PO; -CARV3.1260 PO; +LORA0.5T PO; -METO10TA92 PO; -ONDA4TAB95 PO; -PANT40TA3 PO; +SPIR25TA PO
[2017-01-12 23:40] VITALS: Ht 172.7 cm; Wt 98.5 kg
[2017-01-13] MEDS ORDERED: IPRATROPIUM (NEB) 0.5 MG/2.5 ML AMP INH STA (00:43)
[2017-01-13] MEDS ORDERED: ALBUTEROL 0.5% (NEB) 2.5 MG/0.5 ML AMP INH STA (00:43)
[2017-01-13 01:45] LABS: BASOPHILS % 0.7 % (0.0-2.0); EOSINOPHILS # 0.1 10^3/ul (0.0-0.5); EOSINOPHILS % 0.9 % (0.0-7.0); HEMOGLOBIN 13.9 g/dl (12.0-16.0); LYMPHOCYTES # 1.1 10^3/ul (0.8-2.9); LYMPHOCYTES % 18.3 % (15.0-51.0); MEAN CORPUSCULAR HGB CONC 31.6 g/dl (32.0-37.0); MEAN CORPUSCULAR VOLUME 88.5 fl (82.0-101.0); MEAN PLATELET VOLUME 11.6 fl (7.4-10.4); MONOCYTE # 0.6 10^3/ul (0.3-0.9); MONOCYTES % 10.2 % (0.0-11.0); NEUTROPHILS % 69.6 % (39.0-77.0); PLATELET COUNT 216 10^3/UL (140-415); RED BLOOD COUNT 4.97 10^6/ul (4.20-5.40); WHITE BLOOD COUNT 5.8 10^3/ul (4.8-10.8)
--- NOTE | 2017-01-13 02:21 | RADRPT ---
PROCEDURE: XR Chest. CLINICAL INDICATION: Chest pain. TECHNIQUE: AP Portable chest. COMPARISON: CR CHEST 03/17/2016; CR CHEST 03/11/2016; FINDINGS: Left-sided AICD is again noted. The cardiac silhouette is markedly enlarged, unchanged. The pulmonary arteries are dilated. There is right basilar and retrocardiac increased density. No pneumothorax is seen. Sclerotic lesion or enc hondroma in the left humerus is unchanged.. IMPRESSION: Stable severe cardiomegaly. Pulmonary congestion. Bibasilar densities, likely atelectasis. Physician Leighton Date Time Electronically viewed and signed by Physician Leighton on 01/13/2017 02:21 CS/
[2017-01-13 02:25] LABS: CALCIUM 9.8 mg/dl (8.4-10.2); CREATININE 1.96 mg/dl (0.44-1.00); POTASSIUM 4.1 mmol/L (3.5-5.1)
[2017-01-13] MEDS ORDERED: LORAZEPAM 2 MG INJ IV ONE (02:30)
[2017-01-13 02:35] LABS: CK-MB 0.68 ng/ml (0.0-2.4); TROPONIN-I 0.039 ng/ml (0.00-0.12)
[2017-01-13 02:36] LABS: TROPONIN-I 0.042 ng/ml (0.00-0.12)
[2017-01-13 03:00] VITALS: BP 109/82; PULSE 78; RESP 19; TEMP 97.8
[2017-01-13] MEDS ORDERED: FUROSEMIDE 40 MG INJ IV ONE (03:00)
--- NOTE | 2017-01-13 03:08 | ERD ---
ER Documentation Chief Complaint Date/Time DATE: 01/13/17 TIME: 03:05 Chief Complaint pressure like chest pain w/ sob x 2 day HPI This is a 56-year-old female with a history of diastolic heart failure with biventricular pacemaker, hypertension who and CHF who presents to the emergency room for evaluation of shortness of breath. The patient states that her shortness of breath feels like when she has too much fluid in her body. She states is worse when she lays flat. The patient states is somewhat improved when she sits up and with rest. The patient came to the ER today for evaluation of her symptoms and does state that she is taking Lasix at home with minimal relief. ROS All systems reviewed and are negative except as per history of present illness. Medications Home Meds Active Scripts Furosemide* (Furosemide*) 40 Mg Tablet, 60 MG PO DAILY@06 for 30 Days, TAB Prov:MARY DAMON MD 12/10/16 Albuterol Sulfate* (Ventolin HFA*) 18 Gm Hfa.aer.ad, 2 PUFF INHALATION Q4H, #1 INHALER Prov:APOLLO ORELLANA 08/25/16 Salmeterol Xinaf/Fluticasone* (Advair*) 250-50 Diskus Inhaler, 1 INH INHALATION BID, #1 INHALER Prov:APOLLO ORELLANA 08/25/16 Docusate Sodium (Dok) 100 Mg Capsule, 100 MG PO Q12H Y for CONSTIPATION, #30 CAP Prov:APOLLO ORELLANA 08/25/16 Reported Medications Spironolactone* (Aldactone*) 25 Mg Tablet, 25 MG PO DAILY, #30 TAB 12/06/16 Lorazepam* (Lorazepam*) 0.5 Mg Tablet, 0.5 MG PO HS Y for ANXIETY, TAB 12/06/16 Carvedilol* (Coreg*) 3.125 Mg Tablet, 3.125 MG PO BID, #60 TAB 12/06/16 Aspirin* (Aspirin* Chew) 81 Mg Tab.chew, 81 MG PO DAILY, TAB.CHEW 12/06/16 Allergies Allergies: Coded Allergies: No Known Allergy (Verified , 08/20/16) PMhx/Soc History of Surgery: Yes (LAP ADRIANE/ AICD PLACEMENT) Anesthesia Reaction: No Hx Neurological Disorder: No Hx Respiratory Disorders: No Hx Cardiac Disorders: Yes (HTN/CHF) Hx Psychiatric Problems: No Hx Miscellaneous Medical Probl: No Hx Alcohol Use: Yes (SOCIALLY) Hx Substance Use: No Hx Tobacco Use: Yes (QUIT CIGARETTES 2001) Smoking Status: Former smoker Physical Exam Vitals Vital Signs Date Time Temp Pulse Resp B/P Pulse Ox O2 Delivery O2 Flow Rate FiO2 01/13/17 01:45 78 24 98 21 01/13/17 00:50 97.8 70 30 110/45 100 Room Air 01/12/17 23:40 98.5 64 20 112/59 100 Physical Exam INITIAL VITAL SIGNS: Reviewed by me GENERAL: The patient is well developed and appropriate for usual state of health in no apparent distress HEENT: Pupils equal, round, and reactive to light. EOMI. There is no scleral icterus. NECK: C-spine is soft and supple, there is no meningismus. There is no cervical lymphadenopathy. LUNGS: Coarse rhonchi auscultated in the lower lobes HEART: Regular rate and rhythm, no murmurs, clicks, rubs or gallops. ABDOMEN: Soft, non-tender, non-distended. There are bowel sounds in all four quadrants. No rebound or guarding. EXTREMITIES: There is no peripheral cyanosis or edema. No focal swelling or erythema. NEUROLOGICAL: The patient moves all four extremities with 5/5 strength. Cranial nerves II - XII are intact. Normal gait. Alert and oriented SKIN: There is no apparent rash or petechiae. HEME/LYMPHATIC: There is no evidence of excessive bruising or lymphedema. PSYCHIATRIC: The patient does not appear anxious or depressed. Result Diagram: 01/13/1710401/13/17104 Results 24 hrs Laboratory Tests Test 01/13/17 01:05 White Blood Count 5.810^3/ul Red Blood Count 4.9710^6/ul Hemoglobin 13.9g/dl Hematocrit 44.0% Mean Corpuscular Volume 88.5fl Mean Corpuscular Hemoglobin 28.0pg Mean Corpuscular Hemoglobin Concent 31.6g/dl Red Cell Distribution Width 15.0% Platelet Count 59731^3/UL Mean Platelet Volume 11.6fl Neutrophils % 69.6% Lymphocytes % 18.3% Monocytes % 10.2% Eosinophils % 0.9% Basophils % 0.7% Nucleated Red Blood Cells % 0.0/100WBC Neutrophils # 4.010^3/ul Lymphocytes # 1.110^3/ul Monocytes # 0.610^3/ul Eosinophils # 0.110^3/ul Basophils # 0.010^3/ul Nucleated Red Blood Cells # 0.010^3/ul Sodium Level 143mmol/L Potassium Level 4.1mmol/L Chloride Level 100mmol/L Carbon Dioxide Level 28mmol/L Anion Gap 19 Blood Urea Nitrogen 35mg/dl Creatinine 1.96mg/dl Glucose Level 90mg/dl Calcium Level 9.8mg/dl Creatine Kinase 66IU/L Creatine Kinase Index 1.0 Creatinine Kinase MB (Mass) 0.68ng/ml Troponin I 0.039ng/ml B-Type Natriuretic Peptide 07229QV/ML Current Medications Medications (Trade) Dose Ordered Sig/Yash Route PRN Reason Start Time Stop Time Status Last Admin Dose Admin Albuterol (Proventil 0.5% (Neb)) 10 mg ONCE STAT INH 01/13/17 00:43 01/13/17 00:44 DC 01/13/17 01:45 Ipratropium Uriah (Atrovent 0.02% (Neb)) 1 mg ONCE STAT INH 01/13/17 00:43 01/13/17 00:44 DC 01/13/17 01:45 Lorazepam (Ativan) 1 mg ONCE ONCE IV 01/13/17 02:30 01/13/17 02:31 DC Furosemide (Lasix) 40 mg ONCE ONCE IV 01/13/17 03:00 01/13/17 03:01 DC Procedures/MDM EKG: Rate/Rhythm: Paced rhythm QRS, ST, T-waves: [No changes consistent w/ acute ischemia] Impression: Paced rhythm Chest X-ray 1V Interpreted by me: Soft Tissue: No acute abnormalities Bones: No acute abnormalities Mediastinum/Cardiac Silhouette/Lungs: Cardiomegaly This 56-year-old female presents to the ER for evaluation of shortness of breath. When I evaluated this patient she had coarse breath sounds bilaterally. She was given a breathing treatment with albuterol, Atrovent. The patient does have signs of congestion on her x-ray however no signs of pulmonary edema. She was given Lasix. The patient has a negative troponin and her oxygen level is 99% on room air. Given the fact that her oxygenation is okay and she has no respiratory distress she will be discharged home with instructions to continue her home Lasix. The patient and the patient's son are okay with her plan of care and feel comfortable with discharge at this time. They can were advised they can return to the ER any point for reevaluation and they verbalized understanding Departure Diagnosis: Primary Impression: Diastolic heart failure Additional Impressions: Shortness of breath Renal insufficiency Condition: Stable MARGARETTE HOOKS DO Jan 13, 2017 03:08
== END 2017-01-13 04:10 | disposition home or self-care (01) ==
LOC: E/R 23:37
DX: I50.30 Unspecified diastolic (congestive) heart failure (principal); N28.9 Disorder of kidney and ureter, unspecified; I10 Essential (primary) hypertension; I50.9 Heart failure, unspecified; Z79.82 Long term (current) use of aspirin; Z87.891 Personal history of nicotine dependence
CPT/HCPCS: 36415; 71010; 80048; 82550; 82553; 83880; 84484; 85025; 94644; 96374; 96375; J1940; J2060; Z7502; Z7610

== ENCOUNTER 2017-02-04 15:37 | Inpatient (IN) | payer OTHER ==
[~2017-02-04] VITALS: Ht 175.3 cm; Wt 101.4 kg
[2017-02-04] MEDS ORDERED: ASPIRIN 81 MG TAB ONE (17:59)
[2017-02-04] MEDS ORDERED: FUROSEMIDE 40 MG INJ ONE (17:59)
[2017-02-04] MEDS ORDERED: ONDANSETRON 4 MG INJ ONE (19:02)
[2017-02-04 20:34] LABS: ALBUMIN 4.5 g/dl (3.3-4.9); ALBUMIN/GLOBULIN RATIO 1.5; BILIRUBIN,INDIRECT 1.2 mg/dl (0-1.1); BILIRUBIN,TOTAL 1.2 mg/dl (0.2-1.3); CALCIUM 9.3 mg/dl (8.4-10.2); CREATININE 1.35 mg/dl (0.44-1.00); POTASSIUM 4.9 mmol/L (3.5-5.1); TOTAL PROTEIN 7.5 g/dl (6.1-8.1); TROPONIN-I 0.014 ng/ml (0.00-0.12)
[2017-02-04] MEDS ORDERED: NITROGLYCERIN 2% 1 GM OINT PKT ONE (20:54)
[2017-02-04] MEDS ORDERED: morphine 4 MG/ML VIAL ONE (20:55)
[2017-02-04] MEDS ORDERED: SACU1TAB PO (22:46)
[2017-02-05] VITALS (14 sets, daily range): BP systolic 103–131; BP diastolic 63–86; PULSE 60–74; RESP 18–20; Ht 175.3 cm; Wt 101.4 kg
[2017-02-05 00:12] LABS: BASOPHILS % 0.8 % (0.0-2.0); EOSINOPHILS % 0.6 % (0.0-7.0); HEMATOCRIT 44.3 % (37.0-47.0); HEMOGLOBIN 13.8 g/dl (12.0-16.0); LYMPHOCYTES # 1.2 10^3/ul (0.8-2.9); MEAN CORPUSCULAR HEMOGLOBIN 27.3 pg (29.0-33.0); MEAN CORPUSCULAR HGB CONC 31.2 g/dl (32.0-37.0); MEAN CORPUSCULAR VOLUME 87.5 fl (82.0-101.0); MEAN PLATELET VOLUME 10.9 fl (7.4-10.4); MONOCYTE # 0.7 10^3/ul (0.3-0.9); NEUTROPHIL # 3.3 10^3/ul (1.6-7.5); NEUTROPHILS % 63.4 % (39.0-77.0); PLATELET COUNT 220 10^3/UL (140-415); RED BLOOD COUNT 5.06 10^6/ul (4.20-5.40); RED CELL DISTRIBUTION WIDTH 15.3 % (11.5-14.5); WHITE BLOOD COUNT 5.2 10^3/ul (4.8-10.8)
[2017-02-05] MEDS ORDERED: NITROGLYCERIN (SL) 0.4 MG TAB SL PRN (03:00)
--- NOTE | 2017-02-05 06:37 | RADRPT ---
PROCEDURE: XR Chest. CLINICAL INDICATION: Shortness of breath. TECHNIQUE: PA and Lateral views of the chest were obtained. COMPARISON: Chest radiograph dated March 17, 2016. FINDINGS: AICD device overlying the left chest wall. There is stable cardiomegaly. The lungs are clear with no focal consolidations, pleural effusions, or pneumothorax. There are degenerative changes of the spine and shoulder joints. IMPRESSION: 1. Stable cardiomegaly with no acute cardiopulmonary disease. RPTAT:AAJJ Physician [place] Date Time Electronically viewed and signed by Kamila Ash Physician on 02/04/2017 18:50 QL/
[2017-02-05] MEDS: FUROSEMIDE 20 MG INJ IV SCH ×2 (06:43→18:19)
[2017-02-05 07:19] LABS: BASOPHILS % 0.7 % (0.0-2.0); EOSINOPHILS % 0.9 % (0.0-7.0); HEMATOCRIT 41.7 % (37.0-47.0); HEMOGLOBIN 12.6 g/dl (12.0-16.0); LYMPHOCYTES % 21.2 % (15.0-51.0); MEAN CORPUSCULAR HEMOGLOBIN 26.7 pg (29.0-33.0); MEAN CORPUSCULAR HGB CONC 30.2 g/dl (32.0-37.0); MEAN CORPUSCULAR VOLUME 88.3 fl (82.0-101.0); MEAN PLATELET VOLUME 11.4 fl (7.4-10.4); MONOCYTE # 0.6 10^3/ul (0.3-0.9); MONOCYTES % 14.3 % (0.0-11.0); NEUTROPHIL # 2.8 10^3/ul (1.6-7.5); NEUTROPHILS % 62.7 % (39.0-77.0); PLATELET COUNT 187 10^3/UL (140-415); RED BLOOD COUNT 4.72 10^6/ul (4.20-5.40); RED CELL DISTRIBUTION WIDTH 15.2 % (11.5-14.5); WHITE BLOOD COUNT 4.5 10^3/ul (4.8-10.8)
--- NOTE | 2017-02-05 07:26 | HP ---
Date/Time of Note Date/Time of Note DATE: 02/05/17 TIME: 07:15 Assessment/Plan VTE Prophylaxis VTE Prophylaxis Intervention: heparin Lines/Catheters IV [facility]ter [facility] (from [facility]): Saline Lock Assessment/Plan Assessment/Plan ASSESSMENT 56-year-old female with a history of COPD, cardiomyopathy was systolic dysfunction with EF of 20%, renal insufficiency, ICD placement who presented to the ER with chest pain and shortness of breath, likely a combination of CHF and COPD exacerbation. PLAN Patient symptom is likely a combination of both COPD and cardiac in etiology. Chest x-ray however shows clear lungs and no extremity pitting edema noted. Plan is for supplemental oxygen, bronchodilators, IV Lasix, steroid and to continue her home medications with adjustment as needed. Monitor urine output. Trend troponin. Will place cardiology consult HPI/ROS Admit Date/Time Admit Date/Time Feb 04, 2017 at 22:32 Hx of Present Illness This is a 56-year-old female with a history of COPD, CKD, cardiomyopathy with systolic dysfunction with EF of 20%, ICD who presented to the ER complaining of shortness of breath. She also reported vague chest discomfort. She was admitted here 2 month ago in November and was ruled out for ACS. She was also evaluated in the ER 3 weeks ago for shortness of breath. She said she is compliant with her home medications including Lasix but she thinks she is not making adequate urine. When she presented to the ER chest x-ray shows cardiomegaly but clear lungs. Labs shows a creatinine of 1.35, BUN 26, potassium 4.9, BNP 11,000. PMH/Family/Social Past Surgical History Past Surgical Hx: cholecystectomy, other Social History Smoking Status: Former smoker Exam/Review of Systems Vital Signs Vitals Vital Signs Date Time Temp Pulse Resp B/P Pulse Ox O2 Delivery O2 Flow Rate FiO2 02/05/17 04:41 60 02/05/17 04:22 98.2 18 131/86 97 02/05/17 02:19 Nasal Cannula 4.0 Intake and Output 02/04/17 02/04/17 02/05/17 15:00 23:00 07:00 Intake Total 550 ml Output Total 450 ml Balance 100 ml Exam Constitutional: alert, oriented, other (Appears weak. Sleepy but arousable) Head: atraumatic, normocephalic Eyes: EOMI Respiratory: clear to auscultation, normal air movement Cardiovascular: nl pulses, regular rate and rhythm Gastrointestinal: non-tender, soft Extremities: normal pulses Labs Result Diagram: 02/04/17174702/04/171747 Medications Medications Current Medications Aspirin (Aspirin) 81 mg DAILY PO ; Start 02/05/17 at 09:00 Carvedilol (Coreg) 3.125 mg BID PO ; Start 02/05/17 at 09:00 Lorazepam (Ativan) 0.5 mg HS PRN PO ANXIETY; Start 02/05/17 at 02:30 Spironolactone (Aldactone) 25 mg DAILY PO ; Start 02/05/17 at 09:00 Miscellaneous Information 1 each BID PO ; Start 02/05/17 at 09:00; Status UNV Morphine Sulfate (morphine) 2 mg Q4H PRN IV PAIN; Start 02/05/17 at 03:00 Nitroglycerin (Nitroglycerin (Sl Tab) 0.4 Mg) 1 tab Q5M PRN SL ANGINA; Start 02/05/17 at 03:00 PIO CRAMER MD Feb 05, 2017 07:25
[2017-02-05] MEDS: ASPIRIN 81 MG TAB PO SCH (09:32)
[2017-02-05] MEDS: SPIRONOLACTONE 25 MG TAB PO SCH (09:33)
--- NOTE | 2017-02-05 11:05 | PN ---
Date/Time of Note Date/Time of Note DATE: 02/05/17 TIME: 10:58 Assessment/Plan VTE Prophylaxis VTE Prophylaxis Intervention: heparin Lines/Catheters IV Catheter Type (from [facility]): Saline Lock Assessment/Plan Chief Complaint/Hosp Course ASSESSMENT/PLAN: 56-year-old female with a history of COPD, cardiomyopathy was systolic dysfunction with EF of 20%, renal insufficiency, ICD placement who presented to the ER with chest pain and shortness of breath, likely a combination of CHF and COPD exacerbation. 1. SOB - Patient symptom is likely a combination of both COPD and cardiac in etiology. Chest x-ray however shows clear lungs and no extremity pitting edema noted. - Plan is for supplemental oxygen, bronchodilators, IV Lasix, steroid and to continue her home medications with adjustment as needed. - Monitor urine output. Trend troponin. -consider cardiology consult if does not improve 2. History of essential hypertension. Continue to monitor for now. Continue beta luis e. Blood pressure stable. 3. History of chronic obstructive pulmonary disease. Again, see #1. She is on DuoNebs prn. Problems: Subjective 24 Hr Interval Summary Free Text/Dictation Patient with some general symptoms of weakness and tiredness, but less shortness of breath symptoms overall. Exam/Review of Systems Vital Signs Vitals Vital Signs Date Time Temp Pulse Resp B/P Pulse Ox O2 Delivery O2 Flow Rate FiO2 02/05/17 08:00 69 02/05/17 07:29 97.5 19 108/72 100 02/05/17 02:19 Nasal Cannula 4.0 Exam Constitutional: alert, oriented, slightly lethargic Head: atraumatic, normocephalic Eyes: EOMI Respiratory: clear to auscultation, normal air movement Cardiovascular: nl pulses, regular rate and rhythm Gastrointestinal: non-tender, soft Extremities: normal pulses Results Result Diagram: 02/05/17 0615 02/04/17 1748 Results 24 hrs Laboratory Tests Test 02/04/17 17:48 02/05/17 06:15 White Blood Count 5.2 4.5 L Red Blood Count 5.06 4.72 Hemoglobin 13.8 12.6 Hematocrit 44.3 41.7 Mean Corpuscular Volume 87.5 88.3 Mean Corpuscular Hemoglobin 27.3 L 26.7 L Mean Corpuscular Hemoglobin Concent 31.2 L 30.2 L Red Cell Distribution Width 15.3 H 15.2 H Platelet Count 220 187 Mean Platelet Volume 10.9 H 11.4 H Neutrophils % 63.4 62.7 Lymphocytes % 22.0 21.2 Monocytes % 13.0 H 14.3 H Eosinophils % 0.6 0.9 Basophils % 0.8 0.7 Nucleated Red Blood Cells % 0.0 0.0 Neutrophils # 3.3 2.8 Lymphocytes # 1.2 1.0 Monocytes # 0.7 0.6 Eosinophils # 0.0 0.0 Basophils # 0.0 0.0 Nucleated Red Blood Cells # 0.0 0.0 Sodium Level 140 Potassium Level 4.9 Chloride Level 100 Carbon Dioxide Level 27 Anion Gap 18 H Blood Urea Nitrogen 26 H Creatinine 1.35 H Glucose Level 96 Calcium Level 9.3 Total Bilirubin 1.2 Direct Bilirubin 0.00 Indirect Bilirubin 1.2 H Aspartate Amino Transf (AST/SGOT) 30 Alanine Aminotransferase (ALT/SGPT) 36 Alkaline Phosphatase 97 Troponin I 0.014 0.025 B-Type Natriuretic Peptide 10517 H Total Protein 7.5 Albumin 4.5 Globulin 3.00 Albumin/Globulin Ratio 1.50 Medications Medications Current Medications Aspirin (Aspirin) 81 mg DAILY PO Last administered on 02/05/17 09:32; Admin Dose 81 MG; Start 02/05/17 at 09:00 Carvedilol (Coreg) 3.125 mg BID PO Last administered on 02/05/17 09:33; Admin Dose 3.125 MG; Start 02/05/17 at 09:00 Lorazepam (Ativan) 0.5 mg HS PRN PO ANXIETY; Start 02/05/17 at 02:30 Spironolactone (Aldactone) 25 mg DAILY PO Last administered on 02/05/17 09:33 ; Admin Dose 25 MG; Start 02/05/17 at 09:00 Miscellaneous Information 1 each BID PO ; Start 02/05/17 at 09:00; Status UNV Morphine Sulfate (morphine) 2 mg Q4H PRN IV PAIN; Start 02/05/17 at 03:00 Nitroglycerin (Nitroglycerin (Sl Tab) 0.4 Mg) 1 tab Q5M PRN SL ANGINA; Start 02/05/17 at 03:00 MAXX LO 7, 2017 11:05
--- NOTE | 2017-02-05 12:01 | CONS ---
Date/Time of Note Date/Time of Note DATE: 02/05/17 TIME: 11:56 Assessment/Plan Assessment/Plan Additional Assessment/Plan Acute decompensated systolic congestive heart failure Cardiomyopathy with ejection fraction 20% with biventricular pacemaker and ICD Pulmonary hypertension Aortic and mitral valve disease -Patient with improvement in symptoms with IV Lasix, would continue gentle IV diuretics. Patient was on at home entresto and currently not available in our facility. Would continue valsartan. Continue beta-luis e as blood pressure heart rate permits. -Patient with progressive worsening congestive heart failure with more frequent hospitalizations. She has been seen by her esteemed electrophysiology colleague Dr Linda and is in the process of being referred to [facility] for heart transplant evaluation. -Will request pacemaker interrogation Consultation Date/Type/Reason Admit Date/Time Feb 04, 2017 at 22:32 Type of Consultation: cv Reason for Consultation Congestive heart failure Hx of Present Illness This is a 56-year-old female well-known to me from multiple previous admissions with history of severe cardia myopathy with ejection fraction 20% status post biventricular/ICD who presents with 2 weeks symptoms of progressive worsening fatigue, shortness of breath. Initially patient noticed some lower extremity edema as well as increased abdominal girth. She became short winded with activity and more tired. Because of the progressive symptoms, she came to the emergency room for evaluation care. She has been having a cough which has been nonproductive. She denies any fevers or chills. Denies any dizziness, chest pain or lightheadedness. Since admission and started on IV Lasix, patient is feeling progressively better. 12 point review of systems was performed with all pertinent positives and negatives mentioned above and all else is negative Past Medical History Aortic and mitral valve disease Medical History: congestive heart failure Past Surgical History Past Surgical Hx: cholecystectomy, other (Biventricular pacemaker and ICD) Family History Significant Family History: no pertinent family hx Social History Alcohol Use: none Smoking Status: Former smoker Exam/Review of Systems Vital Signs Vitals Vital Signs Date Time Temp Pulse Resp B/P Pulse Ox O2 Delivery O2 Flow Rate FiO2 02/05/17 08:00 69 02/05/17 07:29 97.5 19 108/72 100 02/05/17 02:19 Nasal Cannula 4.0 Exam No apparent distress, no dyspnea with speaking, appears tired Constitutional: alert, obese, oriented Head: normocephalic Neck: supple Respiratory: other (Coarse breath sounds bilaterally, no wheezing) Cardiovascular: other (S1-S2 heard), regular rate and rhythm Gastrointestinal: bowel sounds, non-tender, soft Extremities: other (No significant edema) Results Result Diagram: 02/05/17 0615 02/04/17 1748 Results 24 hrs Laboratory Tests Test 02/04/17 17:48 02/05/17 06:15 02/05/17 10:46 White Blood Count 5.2 4.5 L Red Blood Count 5.06 4.72 Hemoglobin 13.8 12.6 Hematocrit 44.3 41.7 Mean Corpuscular Volume 87.5 88.3 Mean Corpuscular Hemoglobin 27.3 L 26.7 L Mean Corpuscular Hemoglobin Concent 31.2 L 30.2 L Red Cell Distribution Width 15.3 H 15.2 H Platelet Count 220 187 Mean Platelet Volume 10.9 H 11.4 H Neutrophils % 63.4 62.7 Lymphocytes % 22.0 21.2 Monocytes % 13.0 H 14.3 H Eosinophils % 0.6 0.9 Basophils % 0.8 0.7 Nucleated Red Blood Cells % 0.0 0.0 Neutrophils # 3.3 2.8 Lymphocytes # 1.2 1.0 Monocytes # 0.7 0.6 Eosinophils # 0.0 0.0 Basophils # 0.0 0.0 Nucleated Red Blood Cells # 0.0 0.0 Sodium Level 140 Potassium Level 4.9 Chloride Level 100 Carbon Dioxide Level 27 Anion Gap 18 H Blood Urea Nitrogen 26 H Creatinine 1.35 H Glucose Level 96 Calcium Level 9.3 Total Bilirubin 1.2 Direct Bilirubin 0.00 Indirect Bilirubin 1.2 H Aspartate Amino Transf (AST/SGOT) 30 Alanine Aminotransferase (ALT/SGPT) 36 Alkaline Phosphatase 97 Troponin I 0.014 0.025 0.013 B-Type Natriuretic Peptide 21950 H Total Protein 7.5 Albumin 4.5 Globulin 3.00 Albumin/Globulin Ratio 1.50 Medications Medications Current Medications Aspirin (Aspirin) 81 mg DAILY PO Last administered on 02/05/17 09:32; Admin Dose 81 MG; Start 02/05/17 at 09:00 Carvedilol (Coreg) 3.125 mg BID PO Last administered on 02/05/17 09:33; Admin Dose 3.125 MG; Start 02/05/17 at 09:00 Lorazepam (Ativan) 0.5 mg HS PRN PO ANXIETY; Start 02/05/17 at 02:30 Spironolactone (Aldactone) 25 mg DAILY PO Last administered on 02/05/17t 09:33 ; Admin Dose 25 MG; Start 02/05/17 at 09:00 Miscellaneous Information 1 each BID PO ; Start 02/05/17 at 09:00; Status UNV Morphine Sulfate (morphine) 2 mg Q4H PRN IV PAIN; Start 02/05/17 at 03:00 Nitroglycerin (Nitroglycerin (Sl Tab) 0.4 Mg) 1 tab Q5M PRN SL ANGINA; Start 02/05/17 at 03:00 Procedures Procedures ECG shows patient is paced Gwyn Paris DO Feb 05, 2017 12:01
[2017-02-05] MEDS: VALSARTAN 80 MG TAB PO SCH (12:30)
[2017-02-05] MEDS: [UNRECOGNIZED DRUG - REMARK] XX SCH ×2 (15:00→23:00)
[2017-02-05] MEDS: ALBUTEROL/IPRATROPIUM (NEB) 3 ML AMP HHN PRN (15:34)
[2017-02-05] MEDS: morphine 2 MG INJ IV PRN (20:58)
[2017-02-06] VITALS (11 sets, daily range): BP systolic 96–107; BP diastolic 65–69; PULSE 69–76; RESP 19–20
[2017-02-06] MEDS: LORAZEPAM 0.5 MG TAB PO PRN (02:17)
[2017-02-06] MEDS: FUROSEMIDE 20 MG INJ IV SCH ×2 (05:56→18:36)
[2017-02-06] MEDS: [UNRECOGNIZED DRUG - REMARK] XX SCH (07:00)
[2017-02-06 08:01] LABS: BASOPHILS % 0.6 % (0.0-2.0); EOSINOPHILS # 0.1 10^3/ul (0.0-0.5); HEMATOCRIT 43.1 % (37.0-47.0); HEMOGLOBIN 13.3 g/dl (12.0-16.0); LYMPHOCYTES % 21.2 % (15.0-51.0); MEAN CORPUSCULAR HEMOGLOBIN 27.5 pg (29.0-33.0); MEAN CORPUSCULAR HGB CONC 30.9 g/dl (32.0-37.0); MEAN PLATELET VOLUME 11.1 fl (7.4-10.4); MONOCYTE # 0.6 10^3/ul (0.3-0.9); MONOCYTES % 13.3 % (0.0-11.0); NEUTROPHIL # 3.1 10^3/ul (1.6-7.5); NEUTROPHILS % 63.7 % (39.0-77.0); PLATELET COUNT 189 10^3/UL (140-415); RED BLOOD COUNT 4.84 10^6/ul (4.20-5.40); WHITE BLOOD COUNT 4.8 10^3/ul (4.8-10.8)
[2017-02-06 08:19] LABS: CALCIUM 9.1 mg/dl (8.4-10.2); CREATININE 1.33 mg/dl (0.44-1.00); POTASSIUM 4.5 mmol/L (3.5-5.1)
[2017-02-06 08:22] LABS: MAGNESIUM 2.2 mg/dl (1.7-2.5); PHOSPHORUS 4.7 mg/dl (2.5-4.9)
[2017-02-06] MEDS: VALSARTAN 80 MG TAB PO SCH (10:15)
[2017-02-06] MEDS: ASPIRIN 81 MG TAB PO SCH (10:15)
[2017-02-06] MEDS: SPIRONOLACTONE 25 MG TAB PO SCH (10:15)
[2017-02-06] MEDS ORDERED: GUAIFENESIN 20 MG/ML 5ML CUP PO PRN (12:30)
[2017-02-06] MEDS ORDERED: CEPASTAT LOZENGE MT PRN (12:30)
[2017-02-06] MEDS ORDERED: LORAZEPAM 2 MG INJ IV PRN (12:30)
--- NOTE | 2017-02-06 12:39 | ERD ---
ER Documentation Chief Complaint Chief Complaint SOB X 2 DAYS H/O CHF HPI This is a very pleasant 56-year-old female with prior history of CHF and cardiomyopathy with ejection fraction of 20% presents with PND, orthopnea, anasarca and worsening shortness of breath. She denies any chest pain or pressure, no pleuritic pain. She states compliance with her medication regimen. No associated fevers chills or recent illness. ROS All systems reviewed and are negative except as per history of present illness. Medications Home Meds Active Scripts Furosemide* (Furosemide*) 40 Mg Tablet, 60 MG PO DAILY@06 for 30 Days, TAB Prov:MARY DAMON MD 12/10/16 Reported Medications Sacubitril/Valsartan (Entresto 24 mg-26 mg Tablet) 1 Each Tablet, 1 EACH PO BID , TAB 02/04/17 Spironolactone* (Aldactone*) 25 Mg Tablet, 25 MG PO DAILY, #30 TAB 12/06/16 Lorazepam* (Lorazepam*) 0.5 Mg Tablet, 0.5 MG PO HS Y for ANXIETY, TAB 12/06/16 Carvedilol* (Coreg*) 3.125 Mg Tablet, 3.125 MG PO BID, #60 TAB 12/06/16 Aspirin* (Aspirin* Chew) 81 Mg Tab.chew, 81 MG PO DAILY, TAB.CHEW 12/06/16 Discontinued Scripts Albuterol Sulfate* (Ventolin HFA*) 18 Gm Hfa.aer.ad, 2 PUFF INHALATION Q4H, #1 INHALER Prov:NAVINRAPOLLO 08/25/16 Salmeterol Xinaf/Fluticasone* (Advair*) 250-50 Diskus Inhaler, 1 INH INHALATION BID, #1 INHALER Prov:REGASHLEYRAPOLLO 08/25/16 Docusate Sodium (Dok) 100 Mg Capsule, 100 MG PO Q12H Y for CONSTIPATION, #30 CAP Prov:REGIDORAPOLLO 08/25/16 Allergies Allergies: Coded Allergies: No Known Drug Allergies (Verified Allergy, Unknown, 02/05/17) PMhx/Soc History of Surgery: Yes (UMBILICAL HERNIA, X 2) Anesthesia Reaction: No Hx Neurological Disorder: No Hx Respiratory Disorders: Yes (LAST 2 WEEKS ER/[facility] FOR SOB, NOT ADMIT) Hx Cardiac Disorders: Yes (CHF, CARDIOMEGALY) Hx Psychiatric Problems: Yes (REPORTS MILD DEPRESSION & ANXIETY) Hx Miscellaneous Medical Probl: No Hx Alcohol Use: Yes (RARE) Hx Substance Use: No Hx Tobacco Use: Yes Smoking Status: Former smoker FmHx Family History: diabetes Physical Exam Vitals Vital Signs Date Time Temp Pulse Resp B/P Pulse Ox O2 Delivery O2 Flow Rate FiO2 02/04/17 15:42 98.2 67 18 101/66 100 Physical Exam General: Well developed, well nourished, no acute distress Head: Normocephalic, atraumatic Eyes: Pupils equally reactive, EOM intact ENT: Moist mucous membranes Neck: Supple, no lymphadenopathy, positive JVD Respiratory: Rales at the bases bilaterally without significant distress, inability to lay flat Cardiovascular: RRR, no murmurs, rubs, or gallops Abdominal: Soft, non-tender, anasarca, non-distended, no peritoneal signs : Deferred, MSK: mild bilateral lower extremity pitting edema, no unilateral swelling, 5/5 strength Neurologic: Alert and oriented, moving all extremities, normal speech, no focal weakness, no cerebellar signs Skin: No rash Psych: Normal mood Result Diagram: 02/06/17 0653 02/06/17 0653 Results 24 hrs Laboratory Tests Test 02/04/17 17:48 White Blood Count 5.210^3/ul Red Blood Count 5.0610^6/ul Hemoglobin 13.8g/dl Hematocrit 44.3% Mean Corpuscular Volume 87.5fl Mean Corpuscular Hemoglobin 27.3pg Mean Corpuscular Hemoglobin Concent 31.2g/dl Red Cell Distribution Width 15.3% Platelet Count 34753^3/UL Mean Platelet Volume 10.9fl Neutrophils % 63.4% Lymphocytes % 22.0% Monocytes % 13.0% Eosinophils % 0.6% Basophils % 0.8% Nucleated Red Blood Cells % 0.0/100WBC Neutrophils # 3.310^3/ul Lymphocytes # 1.210^3/ul Monocytes # 0.710^3/ul Eosinophils # 0.010^3/ul Basophils # 0.010^3/ul Nucleated Red Blood Cells # 0.010^3/ul Sodium Level 140mmol/L Potassium Level 4.9mmol/L Chloride Level 100mmol/L Carbon Dioxide Level 27mmol/L Anion Gap 18 Blood Urea Nitrogen 26mg/dl Creatinine 1.35mg/dl Glucose Level 96mg/dl Calcium Level 9.3mg/dl Total Bilirubin 1.2mg/dl Direct Bilirubin 0.00mg/dl Indirect Bilirubin 1.2mg/dl Aspartate Amino Transf (AST/SGOT) 30IU/L Alanine Aminotransferase (ALT/SGPT) 36IU/L Alkaline Phosphatase 97IU/L Troponin I 0.014ng/ml B-Type Natriuretic Peptide 47136FJ/ML Total Protein 7.5g/dl Albumin 4.5g/dl Globulin 3.00g/dl Albumin/Globulin Ratio 1.50 Current Medications Medications (Trade) Dose Ordered Sig/Yash Route PRN Reason Start Time Stop Time Status Last Admin Dose Admin Ondansetron HCl (Zofran Inj) 4 mg STK-MED ONCE .ROUTE 02/04/17 19:02 02/04/17 19:03 DC Nitroglycerin (Nitroglycerin 2% Oint) 1 inch STK-MED ONCE .ROUTE 02/04/17 20:54 02/04/17 22:00 DC Morphine Sulfate (morphine) 4 mg STK-MED ONCE .ROUTE 02/04/17 20:55 02/04/17 22:00 DC Furosemide (Lasix) 40 mg STK-MED ONCE .ROUTE 02/04/17 17:59 02/05/17 15:34 DC Aspirin (Aspirin) 81 mg STK-MED ONCE .ROUTE 02/04/17 17:59 02/05/17 15:34 DC Procedures/MDM EKG, MONITORS, & DIAGNOSTIC IMAGING: EKG: I reviewed and interpreted a 12-lead EKG. Rhythm: Paced rhythm Ectopy: None Intervals: No abnormalities ST segments: No elevations or depressions T waves: No contiguous inversions Chest x-ray: I reviewed and interpreted a 1 view of the chest Mediastinum: No enlargement Cardiac silhouette: cardiomegaly Airspace: Bilateral interstitial process consistent with pulmonary edema Bones: No evidence of fracture LAB INTERPRETATION: Negative troponin but elevated BNP MEDICAL DECISION MAKING: The patient's presentation is very consistent and concerning for acute, decompensated congestive heart failure. The patient has PND, orthopnea, anasarca. No signs or symptoms concerning for pulmonary embolism or pneumothorax or dissection. The patient will benefit from diuresis. Her blood pressure is borderline upon arrival therefore nitroglycerin will be avoided at this time and reassessed. No indication for BiPAP currently. ER COURSE: The patient was provided with aspirin, 40 mg of IV Lasix. The patient's blood pressure actually increased slightly and she was written for morphine and nitroglycerin but trended down after the morphine therefore nitroglycerin held. I kept the patient and/or family informed of laboratory and diagnostic imaging results throughout the emergency room course. DISPOSITION PLAN: Telemetry admission for management of acute decompensated congestive heart failure CONSULTATION: Accepting care team and consultations: I discussed the current laboratory data, diagnostic imaging and emergency care provided. Admitting team: Dr. Hernandez Admitting team indication: Insurance directed Please note this document was created at a later time secondary significant technical and IT issues at the time of patient care. Please refer to nursing documentation for appropriate time of date of patient care in the emergency department. Departure Diagnosis: Primary Impression: CHF (congestive heart failure) Congestive heart failure type: systolic Congestive heart failure chronicity: acute on chronic Qualified Code: I50.23 - Acute on chronic systolic congestive heart failure Condition: Stable ARIA GREENE MD Feb 06, 2017 12:39
--- NOTE | 2017-02-06 12:39 | PN ---
Date/Time of Note Date/Time of Note DATE: 02/06/17 TIME: 12:37 Assessment/Plan VTE Prophylaxis VTE Prophylaxis Intervention: heparin Lines/Catheters IV Catheter Type (from Nrs): Peripheral IV Assessment/Plan Chief Complaint/Hosp Course ASSESSMENT/PLAN: 56-year-old female with a history of COPD, cardiomyopathy was systolic dysfunction with EF of 20%, renal insufficiency, ICD placement who presented to the ER with chest pain and shortness of breath, likely a combination of CHF and COPD exacerbation. 1. SOB - Patient symptom is likely a combination of both COPD and cardiac (CHF) in etiology. Chest x-ray however shows clear lungs and no extremity pitting edema noted. -Continue oxygen, bronchodilators, IV Lasix, and to continue her home medications with adjustment as needed. - Monitor urine output. Trend troponin. -Follow-up cardiology and EPS recommendations 2. History of essential hypertension. Continue to monitor for now. Continue current meds, blood pressure stable. 3. History of chronic obstructive pulmonary disease. Again, see #1. She is on DuoNebs prn. Problems: Subjective 24 Hr Interval Summary Free Text/Dictation Patient having some coughing symptoms especially after eating, still with some shortness of breath but improved since admission. Seen by cardiology team yesterday. Awaiting for EPS evaluation for AICD interrogation. Exam/Review of Systems Vital Signs Vitals Vital Signs Date Time Temp Pulse Resp B/P Pulse Ox O2 Delivery O2 Flow Rate FiO2 02/06/17 12:05 76 02/06/17 11:14 98.2 19 106/65 98 02/06/17 07:28 Nasal Cannula 2.0 02/05/17 15:35 21 Intake and Output 02/05/17 02/05/17 02/06/17 15:00 23:00 07:00 Intake Total 400 ml 300 ml Output Total 400 ml Balance 0 ml 300 ml Exam Constitutional: alert, oriented, slightly lethargic Head: atraumatic, normocephalic Eyes: EOMI Respiratory: clear to auscultation, normal air movement Cardiovascular: nl pulses, regular rate and rhythm Gastrointestinal: non-tender, soft Extremities: normal pulses Results Result Diagram: 02/06/17 0653 02/06/17 0653 Results 24 hrs Laboratory Tests Test 02/06/17 06:53 02/06/17 06:54 White Blood Count 4.8 Red Blood Count 4.84 Hemoglobin 13.3 Hematocrit 43.1 Mean Corpuscular Volume 89.0 Mean Corpuscular Hemoglobin 27.5 L Mean Corpuscular Hemoglobin Concent 30.9 L Red Cell Distribution Width 15.0 H Platelet Count 189 Mean Platelet Volume 11.1 H Neutrophils % 63.7 Lymphocytes % 21.2 Monocytes % 13.3 H Eosinophils % 1.0 Basophils % 0.6 Nucleated Red Blood Cells % 0.0 Neutrophils # 3.1 Lymphocytes # 1.0 Monocytes # 0.6 Eosinophils # 0.1 Basophils # 0.0 Nucleated Red Blood Cells # 0.0 Sodium Level 138 Potassium Level 4.5 Chloride Level 98 Carbon Dioxide Level 31 Anion Gap 14 Blood Urea Nitrogen 30 H Creatinine 1.33 H Glucose Level 93 Calcium Level 9.1 Phosphorus Level 4.7 Magnesium Level 2.2 Medications Medications Current Medications Aspirin (Aspirin) 81 mg DAILY PO Last administered on 02/06/17 10:15; Admin Dose 81 MG; Start 02/05/17 at 09:00 Carvedilol (Coreg) 3.125 mg BID PO Last administered on 02/06/17 10:14; Admin Dose 3.125 MG; Start 02/05/17 at 09:00 Lorazepam (Ativan) 0.5 mg HS PRN PO ANXIETY Last administered on 02/06/17 02: 17; Admin Dose 0.5 MG; Start 02/05/17 at 02:30 Spironolactone (Aldactone) 25 mg DAILY PO Last administered on 02/06/17 10:15 ; Admin Dose 25 MG; Start 02/05/17 at 09:00 Miscellaneous Information 1 each BID PO ; Start 02/05/17 at 09:00; Status UNV Morphine Sulfate (morphine) 2 mg Q4H PRN IV PAIN Last administered on 20:58; Admin Dose 2 MG; Start 02/05/17 at 03:00 Nitroglycerin (Nitroglycerin (Sl Tab) 0.4 Mg) 1 tab Q5M PRN SL ANGINA; Start 02/05/17 at 03:00 Miscellaneous Information (*Order Clarification Bulletin) (Sacubitril/ Valsartan (Entresto... Q8H XX ; Start 02/05/17 at 15:00 Guaifenesin (Robitussin Liquid Cup) 200 mg Q4H PRN PO COUGH; Start 02/06/17 at 12:30; Status UNV Phenol (Cepastat Lozenge) 1 lozenge Q1H PRN MT COUGH; Start 02/06/17 at 12:30; Status UNV Lorazepam (Ativan) 0.5 mg Q6H PRN IV ANXIETY; Start 02/06/17 at 12:30; Status UNV MAXX LO Feb 06, 2017 12:39
--- NOTE | 2017-02-06 16:49 | CONS ---
Date/Time of Note Date/Time of Note DATE: 02/06/17 TIME: 16:48 Assessment/Plan Assessment/Plan Additional Assessment/Plan Acute decompensated systolic congestive heart failure Cardiomyopathy with ejection fraction 20% with biventricular pacemaker and ICD Pulmonary hypertension Aortic and mitral valve disease -Overall feeling better, given blood pressure on the lower end, we will transition to p.o. diuretics starting from tomorrow and decrease dose of Aldactone. Check magnesium level in the a.m., ambulation with assistance as necessary. Consultation Date/Type/Reason Admit Date/Time Feb 04, 2017 at 22:32 Initial Consult Date Type of Consultation: cv 24 HR Interval Summary Free Text/Dictation Feeling better today, less shortness of breath but still with fatigue. Denies chest pain or palpitations Exam/Review of Systems Vital Signs Vitals Vital Signs Date Time Temp Pulse Resp B/P Pulse Ox O2 Delivery O2 Flow Rate FiO2 02/06/17 16:18 69 02/06/17 15:22 98.1 19 96/68 98 02/06/17 12:56 2.0 02/06/17 07:28 Nasal Cannula 02/05/17 15:35 21 Intake and Output 02/05/17 02/05/17 02/06/17 14:59 22:59 06:59 Intake Total 550 ml 400 ml 300 ml Output Total 450 ml 400 ml Balance 100 ml 0 ml 300 ml Exam No apparent distress Constitutional: alert, oriented Head: normocephalic Respiratory: other (Coarse breath sounds bilaterally, no wheezing) Cardiovascular: other (S1-S2 heard), regular rate and rhythm Gastrointestinal: bowel sounds, non-tender, soft Extremities: other (No significant edema) Results Result Diagram: 02/06/17 0653 02/06/17 0653 Results 24 hrs Laboratory Tests Test 02/06/17 06:53 02/06/17 06:54 White Blood Count 4.8 Red Blood Count 4.84 Hemoglobin 13.3 Hematocrit 43.1 Mean Corpuscular Volume 89.0 Mean Corpuscular Hemoglobin 27.5 L Mean Corpuscular Hemoglobin Concent 30.9 L Red Cell Distribution Width 15.0 H Platelet Count 189 Mean Platelet Volume 11.1 H Neutrophils % 63.7 Lymphocytes % 21.2 Monocytes % 13.3 H Eosinophils % 1.0 Basophils % 0.6 Nucleated Red Blood Cells % 0.0 Neutrophils # 3.1 Lymphocytes # 1.0 Monocytes # 0.6 Eosinophils # 0.1 Basophils # 0.0 Nucleated Red Blood Cells # 0.0 Sodium Level 138 Potassium Level 4.5 Chloride Level 98 Carbon Dioxide Level 31 Anion Gap 14 Blood Urea Nitrogen 30 H Creatinine 1.33 H Glucose Level 93 Calcium Level 9.1 Phosphorus Level 4.7 Magnesium Level 2.2 Medications Medications Current Medications Aspirin (Aspirin) 81 mg DAILY PO Last administered on 02/06/17 10:15; Admin Dose 81 MG; Start 02/05/17 at 09:00 Carvedilol (Coreg) 3.125 mg BID PO Last administered on 02/06/17 10:14; Admin Dose 3.125 MG; Start 02/05/17 at 09:00 Lorazepam (Ativan) 0.5 mg HS PRN PO ANXIETY Last administered on 02/06/17 02: 17; Admin Dose 0.5 MG; Start 02/05/17 at 02:30 Spironolactone (Aldactone) 25 mg DAILY PO Last administered on 02/06/17 10:15 ; Admin Dose 25 MG; Start 02/05/17 at 09:00 Non-Formulary Medication 1 ea BID PO ; Start 02/06/17 at 21:00; Status Future Hold Morphine Sulfate (morphine) 2 mg Q4H PRN IV PAIN Last administered on 20:58; Admin Dose 2 MG; Start 02/05/17 at 03:00 Nitroglycerin (Nitroglycerin (Sl Tab) 0.4 Mg) 1 tab Q5M PRN SL ANGINA; Start 02/05/17 at 03:00 Guaifenesin (Robitussin Liquid Cup) 200 mg Q4H PRN PO COUGH; Start 02/06/17 at 12:30 Phenol (Cepastat Lozenge) 1 lozenge Q1H PRN MT COUGH; Start 02/06/17 at 12:30 Lorazepam (Ativan) 0.5 mg Q6H PRN IV ANXIETY; Start 02/06/17 at 12:30 Gwyn Paris DO Feb 06, 2017 16:49
[2017-02-06] MEDS: ALBUTEROL/IPRATROPIUM (NEB) 3 ML AMP HHN PRN (19:40)
[2017-02-06] MEDS ORDERED: [UNRECOGNIZED DRUG - OTHER] PO SCH (21:00)
[2017-02-06] MEDS ORDERED: SACUBITRIL PO SCH (21:00)
[2017-02-06] MEDS ORDERED: VALSARTAN PO SCH (21:00)
[2017-02-06] MEDS: morphine 2 MG INJ IV PRN (21:37)
[2017-02-07] VITALS (14 sets, daily range): BP systolic 91–112; BP diastolic 56–74; PULSE 69–79; RESP 18–20
[2017-02-07] MEDS: LORAZEPAM 0.5 MG TAB PO PRN (03:52)
[2017-02-07 07:21] LABS: BASOPHILS % 0.6 % (0.0-2.0); EOSINOPHILS # 0.1 10^3/ul (0.0-0.5); EOSINOPHILS % 1.1 % (0.0-7.0); HEMATOCRIT 41.3 % (37.0-47.0); HEMOGLOBIN 12.7 g/dl (12.0-16.0); LYMPHOCYTES # 1.1 10^3/ul (0.8-2.9); LYMPHOCYTES % 20.4 % (15.0-51.0); MEAN CORPUSCULAR HEMOGLOBIN 27.2 pg (29.0-33.0); MEAN CORPUSCULAR HGB CONC 30.8 g/dl (32.0-37.0); MEAN CORPUSCULAR VOLUME 88.4 fl (82.0-101.0); MONOCYTE # 0.7 10^3/ul (0.3-0.9); MONOCYTES % 13.4 % (0.0-11.0); NEUTROPHIL # 3.4 10^3/ul (1.6-7.5); NEUTROPHILS % 64.1 % (39.0-77.0); PLATELET COUNT 211 10^3/UL (140-415); RED BLOOD COUNT 4.67 10^6/ul (4.20-5.40); RED CELL DISTRIBUTION WIDTH 14.9 % (11.5-14.5); WHITE BLOOD COUNT 5.3 10^3/ul (4.8-10.8)
[2017-02-07 07:51] LABS: CALCIUM 9.3 mg/dl (8.4-10.2); CREATININE 1.35 mg/dl (0.44-1.00); POTASSIUM 4.5 mmol/L (3.5-5.1)
[2017-02-07 08:06] LABS: MAGNESIUM 2.1 mg/dl (1.7-2.5)
[2017-02-07] MEDS: SPIRONOLACTONE 25 MG TAB PO SCH (08:38)
[2017-02-07] MEDS: ASPIRIN 81 MG TAB PO SCH (08:38)
[2017-02-07] MEDS ORDERED: BUMETANIDE 0.5 MG TAB PO SCH (09:00)
--- NOTE | 2017-02-07 12:06 | PN ---
Date/Time of Note Date/Time of Note DATE: 02/07/17 TIME: 12:04 Assessment/Plan VTE Prophylaxis VTE Prophylaxis Intervention: heparin Lines/Catheters IV Catheter Type (from Nrs): Peripheral IV Assessment/Plan Chief Complaint/Hosp Course ASSESSMENT/PLAN: 56-year-old female with a history of COPD, cardiomyopathy was systolic dysfunction with EF of 20%, renal insufficiency, ICD placement who presented to the ER with chest pain and shortness of breath, likely a combination of CHF and COPD exacerbation. 1. SOB - Patient symptom is likely a combination of both COPD and cardiac (CHF) in etiology. Chest x-ray however shows clear lungs and no extremity pitting edema noted. -Continue oxygen, bronchodilators, now on p.o. Bumex, Aldactone,. - Monitor urine output. -Follow-up cardiology and EPS recommendations -awaiting for possible AICD interrogation with the patient is here in the hospital 2. History of essential hypertension. Continue to monitor for now. Continue current meds, blood pressure stable. 3. History of chronic obstructive pulmonary disease. Again, see #1. She is on DuoNebs prn. Problems: Subjective 24 Hr Interval Summary Free Text/Dictation Patient sounds a bit congested, overall less shortness of breath symptoms. Seen by cardiology team. Exam/Review of Systems Vital Signs Vitals Vital Signs Date Time Temp Pulse Resp B/P Pulse Ox O2 Delivery O2 Flow Rate FiO2 02/07/17 11:23 72 18 91/56 95 02/07/17 04:34 98.0 02/06/17 20:00 Nasal Cannula 2.0 02/05/17 15:35 21 Intake and Output 02/06/17 02/06/17 02/07/17 15:00 23:00 07:00 Intake Total 400 ml 350 ml Output Total 950 ml Balance -550 ml 350 ml Exam Constitutional: alert, oriented Head: atraumatic, normocephalic Eyes: EOMI Respiratory: clear to auscultation, normal air movement Cardiovascular: nl pulses, regular rate and rhythm Gastrointestinal: non-tender, soft Extremities: normal pulses Results Result Diagram: 02/07/17 0646 02/07/17 0646 Results 24 hrs Laboratory Tests Test 02/07/17 06:46 White Blood Count 5.3 Red Blood Count 4.67 Hemoglobin 12.7 Hematocrit 41.3 Mean Corpuscular Volume 88.4 Mean Corpuscular Hemoglobin 27.2 L Mean Corpuscular Hemoglobin Concent 30.8 L Red Cell Distribution Width 14.9 H Platelet Count 211 Mean Platelet Volume 11.0 H Neutrophils % 64.1 Lymphocytes % 20.4 Monocytes % 13.4 H Eosinophils % 1.1 Basophils % 0.6 Nucleated Red Blood Cells % 0.0 Neutrophils # 3.4 Lymphocytes # 1.1 Monocytes # 0.7 Eosinophils # 0.1 Basophils # 0.0 Nucleated Red Blood Cells # 0.0 Sodium Level 138 Potassium Level 4.5 Chloride Level 98 Carbon Dioxide Level 31 Anion Gap 14 Blood Urea Nitrogen 32 H Creatinine 1.35 H Glucose Level 91 Calcium Level 9.3 Magnesium Level 2.1 B-Type Natriuretic Peptide 7230 H Medications Medications Current Medications Aspirin (Aspirin) 81 mg DAILY PO Last administered on 02/07/17 08:38; Admin Dose 81 MG; Start 02/05/17 at 09:00 Carvedilol (Coreg) 3.125 mg BID PO Last administered on 02/07/17 08:37; Admin Dose 3.125 MG; Start 02/05/17 at 09:00 Lorazepam (Ativan) 0.5 mg HS PRN PO ANXIETY Last administered on 02/07/17 03: 52; Admin Dose 0.5 MG; Start 02/05/17 at 02:30 Non-Formulary Medication 1 ea BID PO ; Start 02/06/17 at 21:00; Status Future Hold Morphine Sulfate (morphine) 2 mg Q4H PRN IV PAIN Last administered on 21:37; Admin Dose 2 MG; Start 02/05/17 at 03:00 Nitroglycerin (Nitroglycerin (Sl Tab) 0.4 Mg) 1 tab Q5M PRN SL ANGINA; Start 02/05/17 at 03:00 Guaifenesin (Robitussin Liquid Cup) 200 mg Q4H PRN PO COUGH; Start 02/06/17 at 12:30 Phenol (Cepastat Lozenge) 1 lozenge Q1H PRN MT COUGH; Start 02/06/17 at 12:30 Lorazepam (Ativan) 0.5 mg Q6H PRN IV ANXIETY; Start 02/06/17 at 12:30 Spironolactone (Aldactone) 12.5 mg DAILY PO Last administered on 02/07/17 08: 38; Admin Dose 12.5 MG; Start 02/07/17 at 09:00 Bumetanide (Bumex) 0.5 mg DAILY PO Last administered on 02/07/17 08:37; Admin Dose 0.5 MG; Start 02/07/17 at 09:00 MAXX LO 9, 2017 12:06
--- NOTE | 2017-02-07 13:45 | CONS ---
Date/Time of Note Date/Time of Note DATE: 02/07/17 TIME: 13:44 Assessment/Plan Assessment/Plan Additional Assessment/Plan Acute decompensated systolic congestive heart failure Cardiomyopathy with ejection fraction 20% with biventricular pacemaker and ICD Pulmonary hypertension Aortic and mitral valve disease -Overall feeling better, started on Bumex today p.o. 0.5 mg. Would increase to twice daily if renal function and blood pressure permits. Continue low-dose Aldactone as renal function and blood pressure permits. Encourage ambulation as tolerated, if continues to improve on current p.o. medication regimen, DC planning for tomorrow if no contraindication. Consultation Date/Type/Reason Admit Date/Time Feb 04, 2017 at 22:32 Type of Consultation: cv 24 HR Interval Summary Free Text/Dictation Less shortness of breath today, denies dizziness or palpitations. Still feels tired Exam/Review of Systems Vital Signs Vitals Vital Signs Date Time Temp Pulse Resp B/P Pulse Ox O2 Delivery O2 Flow Rate FiO2 02/07/17 12:04 72 02/07/17 11:23 18 91/56 95 02/07/17 04:34 98.0 02/06/17 20:00 Nasal Cannula 2.0 02/05/17 15:35 21 Intake and Output 02/06/17 02/06/17 02/07/17 15:00 23:00 07:00 Intake Total 400 ml 350 ml Output Total 950 ml Balance -550 ml 350 ml Exam No apparent distress, emotional at times and crying Constitutional: alert, obese, oriented Head: normocephalic Respiratory: other (Coarse breath sounds bilaterally, no wheezing) Cardiovascular: other (S1-S2 heard), regular rate and rhythm Gastrointestinal: bowel sounds, non-tender, soft Extremities: other (No significant edema) Results Result Diagram: 02/07/17 0646 02/07/17 0646 Results 24 hrs Laboratory Tests Test 02/07/17 06:46 White Blood Count 5.3 Red Blood Count 4.67 Hemoglobin 12.7 Hematocrit 41.3 Mean Corpuscular Volume 88.4 Mean Corpuscular Hemoglobin 27.2 L Mean Corpuscular Hemoglobin Concent 30.8 L Red Cell Distribution Width 14.9 H Platelet Count 211 Mean Platelet Volume 11.0 H Neutrophils % 64.1 Lymphocytes % 20.4 Monocytes % 13.4 H Eosinophils % 1.1 Basophils % 0.6 Nucleated Red Blood Cells % 0.0 Neutrophils # 3.4 Lymphocytes # 1.1 Monocytes # 0.7 Eosinophils # 0.1 Basophils # 0.0 Nucleated Red Blood Cells # 0.0 Sodium Level 138 Potassium Level 4.5 Chloride Level 98 Carbon Dioxide Level 31 Anion Gap 14 Blood Urea Nitrogen 32 H Creatinine 1.35 H Glucose Level 91 Calcium Level 9.3 Magnesium Level 2.1 B-Type Natriuretic Peptide 7230 H Medications Medications Current Medications Aspirin (Aspirin) 81 mg DAILY PO Last administered on 02/07/17 08:38; Admin Dose 81 MG; Start 02/05/17 at 09:00 Carvedilol (Coreg) 3.125 mg BID PO Last administered on 02/07/17 08:37; Admin Dose 3.125 MG; Start 02/05/17 at 09:00 Lorazepam (Ativan) 0.5 mg HS PRN PO ANXIETY Last administered on 02/07/17 03: 52; Admin Dose 0.5 MG; Start 02/05/17 at 02:30 Non-Formulary Medication 1 ea BID PO ; Start 02/06/17 at 21:00; Status Future Hold Morphine Sulfate (morphine) 2 mg Q4H PRN IV PAIN Last administered on 21:37; Admin Dose 2 MG; Start 02/05/17 at 03:00 Nitroglycerin (Nitroglycerin (Sl Tab) 0.4 Mg) 1 tab Q5M PRN SL ANGINA; Start 02/05/17 at 03:00 Guaifenesin (Robitussin Liquid Cup) 200 mg Q4H PRN PO COUGH; Start 02/06/17 at 12:30 Phenol (Cepastat Lozenge) 1 lozenge Q1H PRN MT COUGH; Start 02/06/17 at 12:30 Lorazepam (Ativan) 0.5 mg Q6H PRN IV ANXIETY; Start 02/06/17 at 12:30 Spironolactone (Aldactone) 12.5 mg DAILY PO Last administered on 02/07/17 08: 38; Admin Dose 12.5 MG; Start 02/07/17 at 09:00 Bumetanide (Bumex) 0.5 mg DAILY PO Last administered on 02/07/17 08:37; Admin Dose 0.5 MG; Start 02/07/17 at 09:00 Gwyn Paris DO Feb 07, 2017 13:45
[2017-02-07] MEDS: BUMETANIDE 0.5 MG TAB PO SCH (18:09)
[2017-02-07] MEDS: morphine 2 MG INJ IV PRN (21:24)
[2017-02-08] VITALS (8 sets, daily range): BP systolic 92–126; BP diastolic 54–75; PULSE 69–75; RESP 18–20
[2017-02-08] MEDS: LORAZEPAM 0.5 MG TAB PO PRN (02:15)
[2017-02-08] MEDS: BUMETANIDE 0.5 MG TAB PO SCH (06:23)
[2017-02-08] MEDS ORDERED: BISACODYL (EC) 5 MG TAB PO ONE (07:00)
[2017-02-08] MEDS ORDERED: MAGNESIUM HYDROXIDE 30ML CUP PO ONE (07:00)
[2017-02-08] MEDS: SPIRONOLACTONE 25 MG TAB PO SCH (07:52)
[2017-02-08] MEDS: ASPIRIN 81 MG TAB PO SCH (07:52)
[2017-02-08 09:05] LABS: BASOPHILS % 0.9 % (0.0-2.0); EOSINOPHILS % 0.9 % (0.0-7.0); HEMATOCRIT 40.9 % (37.0-47.0); HEMOGLOBIN 12.4 g/dl (12.0-16.0); MEAN CORPUSCULAR HEMOGLOBIN 26.6 pg (29.0-33.0); MEAN CORPUSCULAR HGB CONC 30.3 g/dl (32.0-37.0); MEAN CORPUSCULAR VOLUME 87.8 fl (82.0-101.0); MEAN PLATELET VOLUME 10.7 fl (7.4-10.4); MONOCYTE # 0.6 10^3/ul (0.3-0.9); MONOCYTES % 12.4 % (0.0-11.0); NEUTROPHIL # 2.9 10^3/ul (1.6-7.5); NEUTROPHILS % 63.8 % (39.0-77.0); PLATELET COUNT 182 10^3/UL (140-415); RED BLOOD COUNT 4.66 10^6/ul (4.20-5.40); RED CELL DISTRIBUTION WIDTH 15.2 % (11.5-14.5); WHITE BLOOD COUNT 4.5 10^3/ul (4.8-10.8)
[2017-02-08 09:26] LABS: CREATININE 1.13 mg/dl (0.44-1.00); POTASSIUM 4.3 mmol/L (3.5-5.1)
--- NOTE | 2017-02-08 09:51 | CONS ---
Date/Time of Note Date/Time of Note DATE: 02/08/17 TIME: 09:49 Assessment/Plan Assessment/Plan Additional Assessment/Plan Acute decompensated systolic congestive heart failure Cardiomyopathy with ejection fraction 20% with biventricular pacemaker and ICD Pulmonary hypertension Aortic and mitral valve disease -Overall feeling better, continue Bumex p.o. as blood pressure tolerates. Renal function remains stable. DC planning. Outpatient follow-up at [facility] for cardiac transplant evaluation. Consultation Date/Type/Reason Admit Date/Time Feb 04, 2017 at 22:32 Type of Consultation: cv 24 HR Interval Summary Free Text/Dictation Feeling better, denies shortness of breath, palpitations. Still complaining of fatigue but mildly improved Exam/Review of Systems Vital Signs Vitals Vital Signs Date Time Temp Pulse Resp B/P Pulse Ox O2 Delivery O2 Flow Rate FiO2 02/08/17 08:39 2.0 02/08/17 08:00 75 02/08/17 07:15 98.4 18 108/72 98 02/07/17 20:50 Nasal Cannula 02/07/17 14:19 21 Intake and Output 02/07/17 02/07/17 02/08/17 14:59 22:59 06:59 Intake Total 600 ml 400 ml Balance 600 ml 400 ml Exam No apparent distress Constitutional: alert, oriented Head: normocephalic Respiratory: other (Coarse breath sounds bilaterally, no wheezing) Cardiovascular: other (S1-S2 heard), regular rate and rhythm Gastrointestinal: bowel sounds, non-tender, soft Extremities: other (No significant edema) Results Result Diagram: 02/08/17 0725 02/08/17 0725 Results 24 hrs Laboratory Tests Test 02/08/17 07:25 White Blood Count 4.5 L Red Blood Count 4.66 Hemoglobin 12.4 Hematocrit 40.9 Mean Corpuscular Volume 87.8 Mean Corpuscular Hemoglobin 26.6 L Mean Corpuscular Hemoglobin Concent 30.3 L Red Cell Distribution Width 15.2 H Platelet Count 182 Mean Platelet Volume 10.7 H Neutrophils % 63.8 Lymphocytes % 22.0 Monocytes % 12.4 H Eosinophils % 0.9 Basophils % 0.9 Nucleated Red Blood Cells % 0.0 Neutrophils # 2.9 Lymphocytes # 1.0 Monocytes # 0.6 Eosinophils # 0.0 Basophils # 0.0 Nucleated Red Blood Cells # 0.0 Sodium Level 139 Potassium Level 4.3 Chloride Level 99 Carbon Dioxide Level 29 Anion Gap 15 Blood Urea Nitrogen 29 H Creatinine 1.13 H Glucose Level 79 Calcium Level 9.0 Medications Medications Current Medications Aspirin (Aspirin) 81 mg DAILY PO Last administered on 02/08/17 07:52; Admin Dose 81 MG; Start 02/05/17 at 09:00 Carvedilol (Coreg) 3.125 mg BID PO Last administered on 02/08/17 07:53; Admin Dose 3.125 MG; Start 02/05/17 at 09:00 Lorazepam (Ativan) 0.5 mg HS PRN PO ANXIETY Last administered on 02/08/17 02: 15; Admin Dose 0.5 MG; Start 02/05/17 at 02:30 Non-Formulary Medication 1 ea BID PO ; Start 02/06/17 at 21:00; Status Future Hold Morphine Sulfate (morphine) 2 mg Q4H PRN IV PAIN Last administered on 21:24; Admin Dose 2 MG; Start 02/05/17 at 03:00 Nitroglycerin (Nitroglycerin (Sl Tab) 0.4 Mg) 1 tab Q5M PRN SL ANGINA; Start 02/05/17 at 03:00 Guaifenesin (Robitussin Liquid Cup) 200 mg Q4H PRN PO COUGH; Start 02/06/17 at 12:30 Phenol (Cepastat Lozenge) 1 lozenge Q1H PRN MT COUGH; Start 02/06/17 at 12:30 Lorazepam (Ativan) 0.5 mg Q6H PRN IV ANXIETY Last administered on 02/07/17 15: 53; Admin Dose 0.5 MG; Start 02/06/17 at 12:30 Spironolactone (Aldactone) 12.5 mg DAILY PO Last administered on 02/08/17 07: 52; Admin Dose 12.5 MG; Start 02/07/17 at 09:00 Gwyn Paris DO Feb 08, 2017 09:51
--- NOTE | 2017-02-08 10:41 | PDOCDIS ---
Discharge Instructions CONDITION Patient Condition: Stable HOME CARE INSTRUCTIONS: Special Diet: 2gm na ACTIVITY: Activity Restrictions: Slowly Increase Activity FOLLOW UP/APPOINTMENTS Follow-up Plan Please take your medications as prescribed. Please see your doctor in the clinic in the next 1 week MAXX LO Feb 08, 2017 10:41
[2017-02-08] MEDS ORDERED: BENZ1LOZ4 MT (10:43)
[2017-02-08] MEDS ORDERED: BUME0.5T PO (10:43)
[2017-02-08] MEDS ORDERED: SPIR25TA PO (10:44)
--- NOTE | 2017-02-08 13:53 | DS ---
DATE OF ADMISSION: 02/04/2017 DATE OF DISCHARGE: 02/08/2017 HISTORY OF PRESENT ILLNESS: The patient came in with shortness of breath. She has a prior history of cardiomyopathy with systolic dysfunction with ejection fraction of 20 percent and prior AICD placement so she was admitted for what was presumed to be CHF exacerbation. She was seen by cardiology team. She was given diuresis with Lasix and eventually switched to Bumex. Over the course of hospital stay, shortness of breath symptoms slowly improved. She was able to ambulate and tolerate a p.o. diet. She had her AICD interrogated and it was working fine and the patient is actually in the process of being evaluated at [facility] for cardiac transplant evaluation. So she has been encouraged to continue that process. In any event, after getting clearance from the Cardiology team today. She will be discharged home today in improved condition. DISCHARGE MEDICATIONS: She will go home with: 1. Cepastat lozenges q.1 hour p.r.n. 2. Bumex 0.5 mg p.o. b.i.d. 3. Aldactone 12.5 mg daily. 4. Aspirin 81 mg daily. 5. Coreg 3.125 mg daily. 6. Entresto 1 tab b.i.d. 7. Ativan 0.5 mg p.o. at bedtime p.r.n. FOLLOWUP: Again, she will follow up cardiology team in the clinic in the next 1 week. FINAL DIAGNOSES: 1. Shortness of breath secondary to acute decompensated systolic congestive heart failure with cardiomyopathy with ejection fraction of 20 percent with automatic implantable cardioverter defibrillator. 2. History of pulmonary hypertension. 3. History of aortic and mitral valve disease. 4. Essential hypertension. 5. History of chronic obstructive pulmonary disease. 6. Mild renal insufficiency, likely early chronic kidney disease. Time spent discharging the patient, 50 minutes. Dictated By: Tyler Limon MD /clayton/cathy /Document#: [id number]
== END 2017-02-08 13:37 | disposition home or self-care (01) | DRG 292 ==
LOC: E/R 15:37 → TEL 22:32
PROVIDERS: ADMIT Internal Medicine; ATTEND Internal Medicine
PROC: 3E0F7GC Introduction of Other Therapeutic Substance into Respiratory Tract, Via Natural or Artificial Opening (ICD-10-PCS; principal; 2017-02-05)
PROC: 3E0F73Z Introduction of Anti-inflammatory into Respiratory Tract, Via Natural or Artificial Opening (ICD-10-PCS; 2017-02-05)
DX: I50.23 Acute on chronic systolic (congestive) heart failure (principal); I13.0 Hypertensive heart and chronic kidney disease with heart failure and stage 1 through stage 4 chronic kidney disease, or unspecified chronic kidney disease; I42.9 Cardiomyopathy, unspecified; J44.9 Chronic obstructive pulmonary disease, unspecified; N18.9 Chronic kidney disease, unspecified; Z79.82 Long term (current) use of aspirin
CPT/HCPCS: 71010; 80048; 80053; 83735; 83880; 84100; 84484; 85025; 93005; 94640; 94664; J1940; J2060; J2270; J2405

== ENCOUNTER 2017-02-15 13:55 | Inpatient (IN) | payer OTHER ==
[~2017-02-15] VITALS: Ht 175.3 cm; Wt 100.4 kg
[~2017-02-15 13:55] MED LIST changes: -ADV25050 INHALATION; -ALBU18HF INHALATION; +BENZ1LOZ4 MT; +BUME0.5T PO; -DOCU-216 PO; -FURO40TA4 PO; +SACU1TAB PO
[2017-02-15 15:09] VITALS: Ht 175.3 cm; Wt 100.4 kg
[2017-02-15 15:34] VITALS: BP 116/64; RESP 18
[2017-02-15] MEDS ORDERED: NACL 0.9% 3 ML SYG IV SCH (16:00)
[2017-02-15] MEDS ORDERED: FUROSEMIDE 40 MG INJ IV STA (16:07)
[2017-02-15] MEDS ORDERED: morphine 2 MG INJ IV STA (16:14)
--- NOTE | 2017-02-15 16:28 | HP ---
Date/Time of Note Date/Time of Note DATE: 02/15/17 TIME: 16:21 Assessment/Plan VTE Prophylaxis VTE Prophylaxis Intervention: LMWH Assessment/Plan Chief Complaint/Hosp Course 56 yo female with h/o chronic systolic CHF presenting with epigastric discomfort , nausea/vomiting, and SOB N/V may be related to PUD given frequent NSAID use. Gastroenteritis a possibility. Gut congestion from R sided heart failure also possible. - Will treat symptomatically with opiates and zofran CHF: - Start IV lasix as hypervolemic on exam and clearly short of breath - Continue home meds: spironolactone 25, Coreg 3.125 BID, Entresto Problems: HPI/ROS Admit Date/Time Admit Date/Time Feb 15, 2017 at 14:27 Hx of Present Illness 56 yo female with h/o severe chronic systolic CHF who presents with epigastric pain, nausea/vomting and SOB Patient with chronic heart failure, symptoms progressive. Constantly SOB. Due for transplant eval at [facility] today. However, since last night has developed nausea and vomiting with epigastric discomfort. Currently uncomfortable, SOB and dry heaves. Further history limited Has been taking copious NSAIDs she also says From chart review, has had numerous simliar presentations to this one PMH/Family/Social Past Medical History Medical History: congestive heart failure Past Surgical History Past Surgical Hx: cholecystectomy, other Family History Significant Family History: no pertinent family hx Social History Alcohol Use: none Smoking Status: Never smoker Drug Use: none Exam/Review of Systems Vital Signs Vitals Vital Signs Date Time Temp Pulse Resp B/P Pulse Ox O2 Delivery O2 Flow Rate FiO2 02/15/17 15:34 97.3 71 18 116/64 100 Exam Exam Uncomfortable appearing, clenches stomach Tachypneic, SOB. Mild JVD. Lung clear ICD pocket in chest RRR Abdomen soft, nt, nd. No rebound or guarding No peripheral edema Medications Medications Current Medications Ondansetron HCl (Zofran Inj) 4 mg Q6H PRN IV NAUSEA AND/OR VOMITING; Start at 16:00 Enoxaparin Sodium (Lovenox) 30 mg DAILY SC ; Start 02/16/17 at 09:00 Pantoprazole (Protonix Iv) 40 mg ONCE ONCE IV ; Start 02/15/17 at 16:30; Stop 02/15/17 at 16:31 Al Hydrox/Mg Hydrox/Simethicone (Mag-Al Plus) 30 ml ONCE ONCE PO ; Start 02/15 at 16:30; Stop 02/15/17 at 16:31 MANDI AUSTIN MD Feb 15, 2017 16:28
[2017-02-15] MEDS ORDERED: AL HYDROX/MG HYDROX/SIMETH 30 ML CUP PO ONE (16:30)
[2017-02-15] MEDS ORDERED: PANTOPRAZOLE 40 MG INJ IV ONE (16:30)
[2017-02-15 16:51] LABS: ABNORMAL IP MESSAGE 1; BASOPHILS % 0.2 % (0.0-2.0); HEMATOCRIT 42.4 % (37.0-47.0); LYMPHOCYTES # 0.5 10^3/ul (0.8-2.9); LYMPHOCYTES % 8.2 % (15.0-51.0); MEAN CORPUSCULAR HEMOGLOBIN 26.7 pg (29.0-33.0); MEAN CORPUSCULAR HGB CONC 30.7 g/dl (32.0-37.0); MEAN CORPUSCULAR VOLUME 87.1 fl (82.0-101.0); MEAN PLATELET VOLUME 11.2 fl (7.4-10.4); MONOCYTE # 0.4 10^3/ul (0.3-0.9); MONOCYTES % 6.4 % (0.0-11.0); NEUTROPHIL # 5.4 10^3/ul (1.6-7.5); PLATELET COUNT 214 10^3/UL (140-415); RED BLOOD COUNT 4.87 10^6/ul (4.20-5.40); RED CELL DISTRIBUTION WIDTH 15.6 % (11.5-14.5); WHITE BLOOD COUNT 6.4 10^3/ul (4.8-10.8)
[2017-02-15 16:54] LABS: POSITIVE DIFF @See below
[2017-02-15] MEDS ORDERED: BARIUM SULF 2% 450 ML BTL (BERRY SMOOTHIE) PO ONE (17:00)
[2017-02-15 17:22] LABS: ALBUMIN 4.2 g/dl (3.3-4.9); ALBUMIN/GLOBULIN RATIO 1.61; BILIRUBIN,INDIRECT 1.7 mg/dl (0-1.1); BILIRUBIN,TOTAL 1.7 mg/dl (0.2-1.3); CALCIUM 9.2 mg/dl (8.4-10.2); CREATININE 1.43 mg/dl (0.44-1.00); POTASSIUM 4.9 mmol/L (3.5-5.1); TOTAL PROTEIN 6.8 g/dl (6.1-8.1)
--- NOTE | 2017-02-15 20:16 | RADRPT ---
PROCEDURE: XR Chest. CLINICAL INDICATION: Shortness of breath. TECHNIQUE: Single frontal view. COMPARISON: 02/15. FINDINGS: There is mild interstitial pulmonary edema. Mild linear atelectasis is present in the left mid lung zone. The lungs are otherwise clear. The heart is enlarged. There is a biventricular pacemaker with leads in the right atrium, right vent ricle, and coronary sinus. A shock coil is present associated with the right ventricle lead. There is no pleural effusion. There is no pneumothorax. IMPRESSION: 1. Mild interstitial pulmonary edema. 2. Mild linear atelectasis in the left mid lung zone. 3. Cardiomegaly. 4. Biventricular pacemaker/internal cardiac defibrillator. 5. Otherwise unremarkable chest radiograph. RPTAT: QQ .Álvaro Obando MD, Date Time Electronically viewed and signed by .Álvaro Obando MD, on 02/15/2017 20:16 .R/
[2017-02-15 20:39] VITALS: BP 136/80; RESP 16
[2017-02-15 22:10] VITALS: BP 127/66; PULSE 77; RESP 20
[2017-02-15] MEDS: LORAZEPAM 0.5 MG TAB PO PRN (22:51)
[2017-02-15] MEDS: ONDANSETRON 4 MG INJ IV PRN (23:26)
[2017-02-16 00:18] LABS: BARBITURATES Negative (NEGATIVE); BENZODIAZEPINES Negative (NEGATIVE); CANNABINOIDS Negative (NEGATIVE); COCAINE Negative (NEGATIVE); OPIATES Positive (NEGATIVE)
[2017-02-16 02:39] VITALS: BP 122/83; RESP 18
[2017-02-16] MEDS: morphine 2 MG INJ IV PRN ×3 (03:31→20:21)
[2017-02-16 06:35] LABS: HEMATOCRIT 41.9 % (37.0-47.0); HEMOGLOBIN 13.1 g/dl (12.0-16.0); LYMPHOCYTES # 0.7 10^3/ul (0.8-2.9); LYMPHOCYTES % 9.9 % (15.0-51.0); MEAN CORPUSCULAR HEMOGLOBIN 27.1 pg (29.0-33.0); MEAN CORPUSCULAR HGB CONC 31.3 g/dl (32.0-37.0); MEAN CORPUSCULAR VOLUME 86.6 fl (82.0-101.0); MEAN PLATELET VOLUME 11.5 fl (7.4-10.4); MONOCYTE # 0.8 10^3/ul (0.3-0.9); MONOCYTES % 11.4 % (0.0-11.0); NEUTROPHIL # 5.6 10^3/ul (1.6-7.5); NEUTROPHILS % 78.3 % (39.0-77.0); PLATELET COUNT 219 10^3/UL (140-415); RED BLOOD COUNT 4.84 10^6/ul (4.20-5.40); RED CELL DISTRIBUTION WIDTH 16.1 % (11.5-14.5); WHITE BLOOD COUNT 7.2 10^3/ul (4.8-10.8)
[2017-02-16] MEDS ORDERED: FUROSEMIDE 40 MG INJ IV SCH (07:00)
[2017-02-16 07:06] LABS: ALBUMIN 4.1 g/dl (3.3-4.9); ALBUMIN/GLOBULIN RATIO 1.36; BILIRUBIN,INDIRECT 2.3 mg/dl (0-1.1); BILIRUBIN,TOTAL 2.3 mg/dl (0.2-1.3); CALCIUM 9.6 mg/dl (8.4-10.2); CREATININE 1.83 mg/dl (0.44-1.00); POTASSIUM 4.9 mmol/L (3.5-5.1); TOTAL PROTEIN 7.1 g/dl (6.1-8.1)
[2017-02-16 07:29] VITALS: BP 113/81; RESP 20
--- NOTE | 2017-02-16 08:04 | RADRPT ---
PROCEDURE: CT Abdomen and Pelvis without contrast. CLINICAL INDICATION: Pain. TECHNIQUE: CT scan of the abdomen and pelvis without contrast was performed on a multidetector hig h-resolution CT scanner. Coronal and sagittal reformatted images were obtained from the axial source images. Images were reviewed on a high-resolution PACS workstation. The total exam CTDI equals 22.5 0 mGy and the total exam DLP equals 1224.87 mGy-cm. DICOM images are available. One or more of the following dose reduction techniques were used: - Automated exposure control. - Adjustment of the mA and/or kV according to patient size. - Use of iterative reconstruction technique. COMPARISON: CT 08/15/2016. FINDINGS: CT Abdomen and Pelvis: Lung bases: Right middle and bilateral lower lobe fibrotic bands are present. There is no evidence of a pleural effusion or discrete pulmonary nodule. There is moderately severe cardiomegaly without demonstration of a pericardial effusion. A left sided dual chamber cardiac pacemaker with leads over lying the right atrium and right ventricle is noted. Solid organs: The liver, spleen, pancreas, adrenal glands are unremarkable. Biliary: The gallbladder is surgically absent. No evidence of intra or extrahepatic biliary ductal dilatation is present. GI: The stomach and small bowel are unremarkable. There is no evidence of appendicitis. There are no pericolonic inflammatory changes. : No evidence of hydronephrosis or space occupying renal mass. The urinary bladder is unremarkabl e. Peritoneum: No evidence of ascites or pneumoperitoneum. Lymph nodes: No pathologically enlarged lymphadenopathy. Vascular: Diffuse calcified plaque is present within the abdominal aorta and bilateral common iliac arteries. No evidence of an abdominal aortic aneurysm. Osseous structures: There are no aggressive appearing osteolytic or osteoblastic lesions .. IMPRESSION: 1. No acute intra-abdominal or intrapelvic pathology. 2. Moderate cardiomegaly without pericardial effusion. 3. Right middle and bilateral lower lobe fibrotic bands. RPTAT: HRSR Physician Rama Date Time Electronically viewed and signed by Physician Rama on 02/16/2017 08:03 RR/
--- NOTE | 2017-02-16 10:33 | RADRPT ---
Echocardiogram Report Patient Name: PHUONG WILKES Gender: Female Date: 1960 Study Date: 16-Feb-2017 Customer Engineer: SWAPNA Location: [id number] Ref. Physician: MANDI AUSTIN Quality: Good Procedures: Transthoracic echocardiogram with complete 2D, M-Mode, and doppler examination. Indications: Congestive Heart Failure. 2D/M Mode Doppler Measurement Value Normal Ranges Measurement Value Normal Ranges AoR Diam MM 2.6 cm DIEGO Vmax 2.2 cm2 ACS MM 2.1 cm DIEGO VTI 2.2 cm2 LA/Ao MM 2.0 AV Mean Daniel 0.9 m/sec LA Dimen MM 5.2 cm AV Mean PG 3.7 mmHg LVIDd 2D 6.2 3.5 - 5.6 cm AV Peak Daniel 1.2 m/sec LVIDs 2D 5.8 2.1 - 4.1 cm AV Peak PG 5.9 mmHg LVPWd 2D 1.0 0.6 - 1.1 cm AV VTI 18.2 cm IVSd 2D 1.0 0.6 - 1.1 cm AI Peak PG 50.8 mmHg EDV 2D 195.4 cm3 AI Peak Daniel 3.6 m/sec ESV 2D 194.0 cm3 AI PHT 381.8 msec EF 2D 15.0 50.0 - 65.0 % LVOT Peak Daniel 0.8 m/sec LVOT Diam 2.0 cm LVOT Peak PG 2.9 mmHg MV E Peak Daniel 1.0 m/sec MV A Peak Daniel 0.3 m/sec MV E/A 3.4 MV Decel Time 162 msec MV Decel [place] 6 MV E/A 3.4 TR Peak Daniel 3.8 m/sec TR Peak PG 57.0 mmHg RVSP 72.0 mmHg RA Pressure 15.0 Findings Left Ventricle: Normal left ventricular wall thickness. Moderate-Severe enlargement of left ventricle cavity measuring 6.2 cm. Severe global left ventricular systolic dysfunction. Severe left ventricular systolic dysfunction. Ejection fraction is visually estimated at 10 %. There is global hypokinesis involving all segments of the left ventricle. Right Ventricle: Moderate enlargement of right ventricle. Moderate right ventricular hypokinesis. Linear artifact in right ventricle suggestive of catheter, pacer lead, or ICD lead. Left Atrium: There is severe enlargement of left atrium. Right Atrium: There is severe enlargement of right atrium. Mitral Valve: Normal appearance of the mitral valve. Mild to moderate mitral valve regurgitation. Aortic Valve: Normal appearance of the aortic valve. No significant aortic stenosis. Mild to moderate aortic valve regurgitation. Tricuspid Valve: Normal appearance of the tricuspid valve. Estimated peak PA systolic pressure 72 mmHg. There is mild to moderate tricuspid regurgitation. Pulmonic Valve: Normal pulmonic valve appearance. There is mild pulmonic regurgitation. Pericardium: Normal pericardium with no significant pericardial effusion. Aorta: Normal aortic root. IVC: Dilated IVC without respiratory collapse consistent with elevated right atrial pressure. Conclusions 1.Normal left ventricular wall thickness. Moderate enlargement of left ventricle cavity measuring 6.2 cm. Severe global left ventricular systolic dysfunction. Ejection fraction is visually estimated at 10 %. There is global hypokinesis involving all segments of the left ventricle. 2.Moderate enlargement of right ventricle. Moderate right ventricular hypokinesis. Linear artifact in right ventricle suggestive of catheter, pacer lead, or ICD lead. 3.Mild to moderate mitral valve regurgitation. 4.Mild to moderate aortic valve regurgitation. 5.Mild to moderate tricuspid regurgitation. 6.Severe biatrial enlargement. 7.Severe pulmonary hypertension with estimated peak PA systolic pressure 72 mmHg based on RA pressure of 15 mmHg. Electronically Signed By: Dg Carney 16-Feb-2017 10:32:34 -0800 Patient Name: PHUONG WILKES Study Date: 16-Feb-2017 [id number]
[2017-02-16] MEDS: LOSARTAN 25 MG TAB PO SCH (10:45)
[2017-02-16] MEDS: SPIRONOLACTONE 25 MG TAB PO SCH (10:45)
[2017-02-16] MEDS: ENOXAPARIN 30 MG/0.3 ML SYG SC SCH (10:45)
--- NOTE | 2017-02-16 14:00 | PN ---
Date/Time of Note Date/Time of Note DATE: 02/16/17 TIME: 13:54 Assessment/Plan VTE Prophylaxis VTE Prophylaxis Intervention: LMWH Lines/Catheters IV C[facility] Type [facility]from [facility] Saline Lock Urinary Cath still in place: No Assessment/Plan Chief Complaint/Hosp Course 56 yo female with h/o chronic systolic CHF presenting with epigastric discomfort , nausea/vomiting, and SOB Epigastric pain with nausea and vomiting: - I suspect this was related to gastritis vs PUD given frequent NSAID use. Recent EGD showed gastritis so presume same pathology. - Now resolved regardless. - Will continue PPI and PO antiacids PRN. Extensively counseeld on need to avoid NSAIDs for GI and cardiac reasons CHF: - Continue IV lasix as hypervolemic on exam and markedly elevated PA pressures on TTE - Continue home meds: spironolactone 25, Coreg 3.125 BID, Entresto substitued with losartan - Katheryn notified to admission WILEY: - Lyndonley cardiorenal syndrome, monitor creatinine Problems: Subjective 24 Hr Interval Summary Free Text/Dictation Feeling much better today. Abdominal pain resolved Breathing at rest is at baseline We had a long discussion about her heart failure. She is very sad at how this has limited her life. Feels she is slowly dying. Exam/Review of Systems Vital Signs Vitals Vital Signs Date Time Temp Pulse Resp B/P Pulse Ox O2 Delivery O2 Flow Rate FiO2 02/16/17 08:50 2.0 02/16/17 07:29 97.8 78 20 113/81 100 02/15/17 22:10 Nasal Cannula Intake and Output 02/15/17 02/15/17 02/16/17 15:00 23:00 07:00 Intake Total 200 ml Output Total 1100 ml Balance -900 ml Exam Mild JVD Clear lungs RRR Device pocket in chest No peripheral edema Feet slightly cold Results Result Diagram: 02/16/17 0510 02/16/17 0510 Results 24 hrs Laboratory Tests Test 02/15/17 16:28 02/15/17 16:29 02/15/17 20:35 02/16/17 05:10 Sodium Level 143 141 Potassium Level 4.9 4.9 Chloride Level 102 103 Carbon Dioxide Level 22 22 Anion Gap 24 H 21 H Blood Urea Nitrogen 30 H 35 H Creatinine 1.43 H 1.83 H Glucose Level 138 134 Calcium Level 9.2 9.6 Total Bilirubin 1.7 H 2.3 H Direct Bilirubin 0.00 0.00 Indirect Bilirubin 1.7 H 2.3 H Aspartate Amino Transf (AST/SGOT) 29 28 Alanine Aminotransferase (ALT/SGPT) 38 39 Alkaline Phosphatase 92 85 B-Type Natriuretic Peptide 87272 H Total Protein 6.8 7.1 Albumin 4.2 4.1 Globulin 2.60 3.00 Albumin/Globulin Ratio 1.61 1.36 White Blood Count 6.4 # 7.2 Red Blood Count 4.87 4.84 Hemoglobin 13.0 13.1 Hematocrit 42.4 41.9 Mean Corpuscular Volume 87.1 86.6 Mean Corpuscular Hemoglobin 26.7 L 27.1 L Mean Corpuscular Hemoglobin Concent 30.7 L 31.3 L Red Cell Distribution Width 15.6 H 16.1 H Platelet Count 214 219 Mean Platelet Volume 11.2 H 11.5 H Neutrophils % 85.0 H 78.3 H Lymphocytes % 8.2 L 9.9 L Monocytes % 6.4 11.4 H Eosinophils % 0.0 0.0 Basophils % 0.2 0.0 Nucleated Red Blood Cells % 0.0 0.0 Neutrophils # 5.4 5.6 Lymphocytes # 0.5 L 0.7 L Monocytes # 0.4 0.8 Eosinophils # 0.0 0.0 Basophils # 0.0 0.0 Nucleated Red Blood Cells # 0.0 0.0 Lactic Acid Level 3.3 *H Urine Opiates Screen Positive Urine Barbiturates Negative Urine Amphetamines Screen Negative Urine Benzodiazepines Screen Negative Urine Cocaine Screen Negative Urine Cannabinoids Negative Medications Medications Current Medications Ondansetron HCl (Zofran Inj) 4 mg Q6H PRN IV NAUSEA AND/OR VOMITING Last administered on 02/15/17 23:26; Admin Dose 4 MG; Start 02/15/17 at 16:00 Enoxaparin Sodium (Lovenox) 30 mg DAILY SC Last administered on 02/16/17 10: 45; Admin Dose 30 MG; Start 02/16/17 at 09:00 Carvedilol (Coreg) 3.125 mg BID PO ; Start 02/15/17 at 21:00 Losartan Potassium (Cozaar) 25 mg DAILY PO Last administered on 02/16/17 10: 45; Admin Dose 25 MG; Start 02/16/17 at 09:00 Morphine Sulfate (morphine) 2 mg Q4H PRN IV pain or shortness of breath Last administered on 02/16/17 11:27; Admin Dose 2 MG; Start 02/15/17 at 16:30 Lorazepam (Ativan) 0.5 mg HS PRN PO ANXIETY Last administered on 02/15/17 22: 51; Admin Dose 0.5 MG; Start 02/15/17 at 18:30 Spironolactone (Aldactone) 12.5 mg DAILY PO Last administered on 02/16/17 10: 45; Admin Dose 12.5 MG; Start 02/16/17 at 09:00 MANDI AUSTIN MD Feb 16, 2017 14:00
[2017-02-16 14:24] VITALS: BP 113/79; RESP 18
[2017-02-16] MEDS: ONDANSETRON 4 MG INJ IV PRN ×2 (14:24→19:06)
[2017-02-16] MEDS: FUROSEMIDE 40 MG INJ IV SCH ×2 (14:28→20:14)
--- NOTE | 2017-02-16 17:51 | CONS ---
DATE OF ADMISSION: 02/15/2017 DATE OF CONSULTATION: 02/16/2017 TYPE OF CONSULTATION: Cardiology on behalf of Dr. Matthews. REASON FOR CONSULTATION: Cardiomyopathy. CHIEF COMPLAINT: Abdominal pain. HISTORY OF PRESENT ILLNESS: Thank you for this referral. History obtained from the patient, review of the chart, review of the old chart. This 56-year-old -[place] female with history of se leeann cardiomyopathy, status post biventricular ICD, who was admitted this time with complaint of abd ominal pain. The patient's pain is mostly epigastric. She also has some shortness of breath and ap pears to be at baseline. Denies any PND, orthopnea to me. PAST MEDICAL HISTORY: History of severe cardiomyopathy and congestive heart failure, status post bi ventricular AICD, history aortic mitral valve disorder, history of hypertension. SURGICAL HISTORY: Status post biventricular AICD, status post cholecystectomy. SOCIAL HISTORY: The patient is a former smoker. FAMILY HISTORY: Denies any coronary artery disease. REVIEW OF SYSTEMS: As above mentioned. MEDICATIONS: As per medication reconciliation, was personally reviewed. PHYSICAL EXAMINATION: VITAL SIGNS: Temperature 97.6, heart rate of 74, blood pressure 130/79, respiration rate of 18, sat urating 100%. HEENT: Normocephalic, atraumatic, obese, in no acute distress. Pupils are equal. CARDIOVASCULAR: Regular rate and rhythm, systolic murmur. PULMONARY: Anteriorly with no wheezes or rhonchi. GASTROINTESTINAL: Soft, nontender. EXTREMITIES: No significant lower extremity edema. NEUROLOGIC: Awake and alert. PSYCHIATRIC: Anxious. DIAGNOSTIC DATA: Review of the old chart showed echocardiogram done this morning ____, showed eject ion fraction of 10% with dilated LV. Mild to moderate MR, mild to moderate AI, mild to moderate TR, biatrial enlargement. PA pressures about 72 mmHg. Chest x-ray done last night shows mild pulmonary edema. Status post ICD. CT of the abdomen done sh ows no acute ____ abnormality. ASSESSMENT AND PLAN: 1. Congestive heart failure, appeared to be chronic, secondary to systolic dysfunction and stable. 2. Abdominal pain and discomfort, workup as per internal medicine. 3. Severe dilated cardiomyopathy, status post ICD. 4. History of hypertension ____ pulmonary hypertension. RECOMMENDATIONS: GI workup as per internal medicine. Continue with the Coreg as tolerated. The pa brandon has been taking Entresto as an outpatient, but is currently on Losartan since Entresto is not available here. Patient to follow up as an outpatient with Dr. Matthews. She is also pending e valuation at [facility] for transplant. Dr. Matthews and ____ will continue to follow along with you o n Saturday. Dictated By: GERTRUDIS ACUNA MD AV/CHRISTIANO Conf#: [id number] DID#: [id number] CC: Teodora Ryan; MANDI AUSTIN MD;*End*
[2017-02-16] MEDS: PANTOPRAZOLE (EC) 40 MG TAB PO SCH (18:00)
[2017-02-16 20:00] VITALS: BP 121/78; RESP 20
[2017-02-16 20:14] VITALS: BP 106/67; PULSE 75
[2017-02-17] MEDS: LORAZEPAM 0.5 MG TAB PO PRN (00:07)
[2017-02-17 02:37] VITALS: BP 110/67; RESP 18
[2017-02-17 05:10] VITALS: BP 117/79; PULSE 72
[2017-02-17] MEDS: PANTOPRAZOLE (EC) 40 MG TAB PO SCH ×2 (05:17→17:52)
[2017-02-17] MEDS: FUROSEMIDE 40 MG INJ IV SCH (05:17)
[2017-02-17 05:53] LABS: BASOPHILS % 0.2 % (0.0-2.0); HEMATOCRIT 40.4 % (37.0-47.0); HEMOGLOBIN 12.4 g/dl (12.0-16.0); LYMPHOCYTES # 0.9 10^3/ul (0.8-2.9); LYMPHOCYTES % 10.4 % (15.0-51.0); MEAN CORPUSCULAR HEMOGLOBIN 26.6 pg (29.0-33.0); MEAN CORPUSCULAR HGB CONC 30.7 g/dl (32.0-37.0); MEAN CORPUSCULAR VOLUME 86.7 fl (82.0-101.0); MONOCYTES % 12.2 % (0.0-11.0); NEUTROPHIL # 6.5 10^3/ul (1.6-7.5); NEUTROPHILS % 76.7 % (39.0-77.0); PLATELET COUNT 216 10^3/UL (140-415); RED BLOOD COUNT 4.66 10^6/ul (4.20-5.40); RED CELL DISTRIBUTION WIDTH 15.8 % (11.5-14.5); WHITE BLOOD COUNT 8.5 10^3/ul (4.8-10.8)
[2017-02-17 06:17] LABS: CALCIUM 9.3 mg/dl (8.4-10.2); CREATININE 2.03 mg/dl (0.44-1.00); POTASSIUM 4.8 mmol/L (3.5-5.1)
[2017-02-17] MEDS: ONDANSETRON 4 MG INJ IV PRN (06:23)
[2017-02-17 08:10] VITALS: BP 98/60; RESP 18
[2017-02-17] MEDS: SPIRONOLACTONE 25 MG TAB PO SCH (09:00)
[2017-02-17] MEDS: LOSARTAN 25 MG TAB PO SCH (09:00)
[2017-02-17] MEDS ORDERED: METOCLOPRAMIDE 10 MG INJ IV STA (09:24)
[2017-02-17] MEDS: morphine 2 MG INJ IV PRN (09:32)
[2017-02-17] MEDS: ENOXAPARIN 30 MG/0.3 ML SYG SC SCH (09:43)
[2017-02-17 11:03] LABS: ALBUMIN 4.2 g/dl (3.3-4.9); ALBUMIN/GLOBULIN RATIO 1.55; BILIRUBIN,DIRECT 0.2 mg/dl (0.00-0.20); BILIRUBIN,INDIRECT 2.1 mg/dl (0-1.1); BILIRUBIN,TOTAL 2.3 mg/dl (0.2-1.3); CALCIUM 9.1 mg/dl (8.4-10.2); CREATININE 1.92 mg/dl (0.44-1.00); POTASSIUM 4.5 mmol/L (3.5-5.1); TOTAL PROTEIN 6.9 g/dl (6.1-8.1)
--- NOTE | 2017-02-17 11:37 | CONS ---
Date/Time of Note Date/Time of Note DATE: 02/17/17 TIME: 11:34 Consult Date/Type/Reason Admit Date/Time Feb 15, 2017 at 14:27 Initial Consult Date Subjective cardiology follow up (covering Dr Matthews) S pt has less abdominal pain no chest pain she still has N/V and states she has not been able to eat much now denies any PND orthonpea to me O: General: obese. no acute distress HEENT: NC/AT. pupils are equal. round. NECK: NO JVD. no stridor. CV: RRR. systolic murmur; no gallop or rubs. PULM: no wheezing or rhonchi. GI: SOFT, NT, ND, no rebound or guarding Extremity: trace B/L LE edema. no clubbing. neuro: awake and alert, OX3. Psych: calm and pleasant rectal: deferred Objective Vital Signs Date Time Temp Pulse Resp B/P Pulse Ox O2 Delivery O2 Flow Rate FiO2 02/17/17 08:15 Nasal Cannula 2.0 02/17/17 08:10 97.5 70 18 98/60 93 Intake and Output 02/16/17 02/16/17 02/17/17 15:00 23:00 07:00 Intake Total 940 ml 680 ml Output Total 1100 ml 1000 ml Balance -160 ml -320 ml Results/Medications Result Diagram: 02/17/17 0502 02/17/17 1007 Results 24 hrs Laboratory Tests Test 02/17/17 05:02 02/17/17 10:07 White Blood Count 8.5 Red Blood Count 4.66 Hemoglobin 12.4 Hematocrit 40.4 Mean Corpuscular Volume 86.7 Mean Corpuscular Hemoglobin 26.6 L Mean Corpuscular Hemoglobin Concent 30.7 L Red Cell Distribution Width 15.8 H Platelet Count 216 Mean Platelet Volume 11.0 H Neutrophils % 76.7 Lymphocytes % 10.4 L Monocytes % 12.2 H Eosinophils % 0.0 Basophils % 0.2 Nucleated Red Blood Cells % 0.0 Neutrophils # 6.5 Lymphocytes # 0.9 Monocytes # 1.0 H Eosinophils # 0.0 Basophils # 0.0 Nucleated Red Blood Cells # 0.0 Sodium Level 136 137 Potassium Level 4.8 4.5 Chloride Level 97 96 L Carbon Dioxide Level 29 27 Anion Gap 15 19 H Blood Urea Nitrogen 41 H 39 H Creatinine 2.03 H 1.92 H Glucose Level 105 119 Calcium Level 9.3 9.1 Total Bilirubin 2.3 H Direct Bilirubin 0.20 # Indirect Bilirubin 2.1 H Aspartate Amino Transf (AST/SGOT) 31 Alanine Aminotransferase (ALT/SGPT) 44 Alkaline Phosphatase 77 Total Protein 6.9 Albumin 4.2 Globulin 2.70 Albumin/Globulin Ratio 1.55 Medications Current Medications Enoxaparin Sodium (Lovenox) 30 mg DAILY SC Last administered on 02/17/17 09: 43; Admin Dose 30 MG; Start 02/16/17 at 09:00 Carvedilol (Coreg) 3.125 mg BID PO ; Start 02/15/17 at 21:00 Losartan Potassium (Cozaar) 25 mg DAILY PO Last administered on 02/16/17 10: 45; Admin Dose 25 MG; Start 02/16/17 at 09:00 Morphine Sulfate (morphine) 2 mg Q4H PRN IV pain or shortness of breath Last administered on 02/17/17 09:32; Admin Dose 2 MG; Start 02/15/17 at 16:30 Lorazepam (Ativan) 0.5 mg HS PRN PO ANXIETY Last administered on 02/17/17 00: 07; Admin Dose 0.5 MG; Start 02/15/17 at 18:30 Spironolactone (Aldactone) 12.5 mg DAILY PO Last administered on 02/16/17 10: 45; Admin Dose 12.5 MG; Start 02/16/17 at 09:00 Pantoprazole (Protonix Tab) 40 mg BID@,18 PO Last administered on 02/17/17 05:17; Admin Dose 40 MG; Start 02/16/17 at 18:00 Ondansetron HCl (Zofran Inj) 4 mg Q4 PRN IV NAUSEA AND/OR VOMITING Last administered on 02/17/17 06:23; Admin Dose 4 MG; Start 02/16/17 at 21:00 Assessment/Plan Chief Complaint/Hosp Course 1. Congestive heart failure, appeared to be chronic, secondary to systolic dysfunction and stable. 2. Abdominal pain and discomfort, workup as per internal medicine. 3. Severe dilated cardiomyopathy, status post ICD. 4. History of hypertension _ 5. pulmonary hypertension. 6. WILEY: probably due to dehydration due to poor po intake. RECOMMENDATIONS: GI workup as per internal medicine. start gentle IV fluid hold ARB LASIX Aldactone for now Patient is also pending evaluation at [facility] for transplant. Dr. Matthews and / or associates will continue to follow along with you on Saturday. THANK YOU GERTRUDIS ACUNA MD [facility] Problems: GERTRUDIS ACUNA MD Feb 17, 2017 11:37
[2017-02-17] MEDS ORDERED: SODIUM CHLORIDE 0.45% 500 ML BAG IV* ONE (12:00)
[2017-02-17] MEDS ORDERED: LORAZEPAM 2 MG INJ IV ONE (12:00)
[2017-02-17] MEDS ORDERED: SOD CHLORIDE 0.45% 1,000 ML IV SCH (12:00)
[2017-02-17 15:49] VITALS: BP 103/62; PULSE 88; RESP 18
--- NOTE | 2017-02-17 18:54 | PN ---
Date/Time of Note Date/Time of Note DATE: 02/17/17 TIME: 18:49 Assessment/Plan VTE Prophylaxis VTE Prophylaxis Intervention: heparin Lines/Catheters IV Catheter Type (from Nrs): Saline Lock Urinary Cath still in place: No Assessment/Plan Chief Complaint/Hosp Course 56 yo female with h/o chronic systolic CHF presenting with epigastric discomfort , nausea/vomiting, and SOB Epigastric pain with nausea and vomiting: - I suspect this was related to gastritis vs PUD given frequent NSAID use. Recent EGD showed gastritis so presume same pathology. - Continue PPI and PO antiacids PRN. - Extensively counseled on need to avoid NSAIDs for GI and cardiac reasons CHF: - Hold lasix and khushboo as w WILEY - Coreg 3.125 BID, Entresto substitued with losartan - Katheryn notified to admission - Patient has an appointment on Saturday at [facility] advanced [facility] clinic for transplant eval WILEY: - Likley mildly prerenal. Gentle fluids, hold diuretics Hopefully discharge tomorrow Problems: Subjective 24 Hr Interval Summary Free Text/Dictation Patient still with episodes of nausea through day No SOB anymore Creatinine bumped, now being given gentle fluid Exam/Review of Systems Vital Signs Vitals Vital Signs Date Time Temp Pulse Resp B/P Pulse Ox O2 Delivery O2 Flow Rate FiO2 02/17/17 15:49 97.6 88 18 103/62 98 Nasal Cannula 2.0 Intake and Output 02/16/17 02/16/17 02/17/17 14:59 22:59 06:59 Intake Total 940 ml 680 ml Output Total 1100 ml 1000 ml Balance -160 ml -320 ml Exam Constitutional: alert, oriented, well developed Psych: nl mood/affect, no complaints Head: atraumatic, normocephalic Eyes: EOMI, PERRL, nl conjunctiva, nl lids, nl sclera ENMT: nl external ears & nose, nl lips & teeth, nl nasal mucosa & septum Neck: non-tender, supple Respiratory: clear to auscultation, normal air movement Cardiovascular: nl pulses, regular rate and rhythm Gastrointestinal: nl liver, spleen, non-tender, soft Musculoskeletal: nl extremities to inspection, nl gait and stance Extremities: normal pulses Neurological: SHOVELER II-XII intact, nl mental status, nl speech, nl strength Skin: nl turgor, No rash or lesions Lymph: nl lymph nodes Results Result Diagram: 02/17/17 0502 02/17/17 1007 Results 24 hrs Laboratory Tests Test 02/17/17 05:02 02/17/17 10:07 White Blood Count 8.5 Red Blood Count 4.66 Hemoglobin 12.4 Hematocrit 40.4 Mean Corpuscular Volume 86.7 Mean Corpuscular Hemoglobin 26.6 L Mean Corpuscular Hemoglobin Concent 30.7 L Red Cell Distribution Width 15.8 H Platelet Count 216 Mean Platelet Volume 11.0 H Neutrophils % 76.7 Lymphocytes % 10.4 L Monocytes % 12.2 H Eosinophils % 0.0 Basophils % 0.2 Nucleated Red Blood Cells % 0.0 Neutrophils # 6.5 Lymphocytes # 0.9 Monocytes # 1.0 H Eosinophils # 0.0 Basophils # 0.0 Nucleated Red Blood Cells # 0.0 Sodium Level 136 137 Potassium Level 4.8 4.5 Chloride Level 97 96 L Carbon Dioxide Level 29 27 Anion Gap 15 19 H Blood Urea Nitrogen 41 H 39 H Creatinine 2.03 H 1.92 H Glucose Level 105 119 Calcium Level 9.3 9.1 Total Bilirubin 2.3 H Direct Bilirubin 0.20 # Indirect Bilirubin 2.1 H Aspartate Amino Transf (AST/SGOT) 31 Alanine Aminotransferase (ALT/SGPT) 44 Alkaline Phosphatase 77 Total Protein 6.9 Albumin 4.2 Globulin 2.70 Albumin/Globulin Ratio 1.55 Medications Medications Current Medications Enoxaparin Sodium (Lovenox) 30 mg DAILY SC Last administered on 02/17/17 09: 43; Admin Dose 30 MG; Start 02/16/17 at 09:00 Carvedilol (Coreg) 3.125 mg BID PO ; Start 02/15/17 at 21:00 Losartan Potassium (Cozaar) 25 mg DAILY PO Last administered on 02/16/17 10: 45; Admin Dose 25 MG; Start 02/16/17 at 09:00; Status Future Hold Morphine Sulfate (morphine) 2 mg Q4H PRN IV pain or shortness of breath Last administered on 02/17/17 09:32; Admin Dose 2 MG; Start 02/15/17 at 16:30 Lorazepam (Ativan) 0.5 mg HS PRN PO ANXIETY Last administered on 02/17/17 00: 07; Admin Dose 0.5 MG; Start 02/15/17 at 18:30 Spironolactone (Aldactone) 12.5 mg DAILY PO Last administered on 02/16/17 10: 45; Admin Dose 12.5 MG; Start 02/16/17 at 09:00; Status Future Hold Pantoprazole (Protonix Tab) 40 mg BID@06,18 PO Last administered on 02/17/17 17:52; Admin Dose 40 MG; Start 02/16/17 at 18:00 Ondansetron HCl 4 mg 4 mg Q4 PRN IV NAUSEA AND/OR VOMITING Last administered on 02/17/17 06:23; Admin Dose 4 MG; Start 02/16/17 at 21:00 Sodium Chloride (1/2 NS) 1,000 ml @ 50 mls/hr Q20H IV Last administered on 11:54; Admin Dose 50 MLS/HR; Start 02/17/17 at 12:00; Stop 02/17/17 at 21:59 MANDI AUSTIN MD Feb 17, 2017 18:54
[2017-02-17 20:36] VITALS: BP 109/67; RESP 20
[2017-02-17 20:50] VITALS: BP 104/67; PULSE 69
[2017-02-18 01:52] VITALS: BP 105/68; RESP 18
[2017-02-18] MEDS: LORAZEPAM 0.5 MG TAB PO PRN (02:21)
[2017-02-18] MEDS: PANTOPRAZOLE (EC) 40 MG TAB PO SCH (05:14)
[2017-02-18 06:51] LABS: CALCIUM 8.8 mg/dl (8.4-10.2); CREATININE 1.56 mg/dl (0.44-1.00); POTASSIUM 4.3 mmol/L (3.5-5.1)
[2017-02-18 07:25] LABS: ADD UMIC YES; UR ASCORBIC ACID 40 mg/dL (NEGATIVE); UR BILIRUBIN (Dip) NEGATIVE (NEGATIVE); UR BLOOD (Dip) NEGATIVE (NEGATIVE); UR CLARITY CLEAR (CLEAR); UR COLOR YELLOW (YELLOW); UR GLUCOSE (Dip) NEGATIVE (NEGATIVE); UR KETONES (Dip) NEGATIVE (NEGATIVE); UR LEUKOCYTE ESTERASE (Dip) NEGATIVE Leu/ul (NEGATIVE); UR NITRITE (Dip) NEGATIVE (NEGATIVE); UR RBC 2 /HPF (0-5); UR SPECIFIC GRAVITY (Dip) 1.023 (1.003-1.030); UR SQUAMOUS EPITHELIAL CELL FEW /HPF (FEW); UR TOTAL PROTEIN (Dip) 1+ mg/dl (NEGATIVE); UR UROBILINOGEN (Dip) NEGATIVE (NEGATIVE)
[2017-02-18 07:41] VITALS: BP 102/65; RESP 20
[2017-02-18] MEDS: ENOXAPARIN 30 MG/0.3 ML SYG SC SCH (09:06)
[2017-02-18 11:07] VITALS: BP 102/65; PULSE 79; RESP 20
--- NOTE | 2017-02-18 12:05 | PDOCDIS ---
Discharge Instructions CONDITION Patient Condition: Good HOME CARE INSTRUCTIONS: Diet Instructions: Reduced Sodium ACTIVITY: Activity Restrictions: No Restrictions FOLLOW UP/APPOINTMENTS Follow-up Plan F/U WITH YOUR PCP IN 1-2 WEEKS AND YOUR [employer]INTE[employer]INEER TOMORROW SCHEDULED DIDIER HERRERA Feb 18, 2017 12:05
--- NOTE | 2017-02-18 12:50 | PN ---
Date/Time of Note Date/Time of Note DATE: 02/18/17 TIME: 12:48 Assessment/Plan VTE Prophylaxis VTE Prophylaxis Intervention: SCD's Lines/Catheters IV Catheter Type (from Nrs): Peripheral IV Urinary Cath still in place: No Assessment/Plan Assessment/Plan 1. Congestive heart failure, appeared to be chronic, secondary to systolic dysfunction and stable. 2. Abdominal pain and discomfort, workup as per internal medicine. 3. Severe dilated cardiomyopathy, status post ICD. 4. History of hypertension _ 5. pulmonary hypertension. 6. WILEY: probably due to dehydration due to poor po intake. RECOMMENDATIONS: GI workup as per internal medicine. start gentle IV fluid hold ARB LASIX Aldactone for now due to renal insufficiency Patient is also pending evaluation at [facility] for transplant - has an appointment tomorrow at [facility] Subjective 24 Hr Interval Summary Free Text/Dictation THE PATIENT SLIGHTLY BETTER Exam/Review of Systems Vital Signs Vitals Vital Signs Date Time Temp Pulse Resp B/P Pulse Ox O2 Delivery O2 Flow Rate FiO2 02/18/17 11:12 Nasal Cannula 2.0 02/18/17 11:07 98.0 79 20 102/65 100 Intake and Output 02/17/17 02/17/17 02/18/17 15:00 23:00 07:00 Intake Total 500 ml 680 ml 1000 ml Output Total 1200 ml 250 ml Balance 500 ml -520 ml 750 ml Results Result Diagram: 02/17/17 0502 02/18/17 0453 Results 24 hrs Laboratory Tests Test 02/18/17 04:53 02/18/17 05:00 Sodium Level 136 Potassium Level 4.3 Chloride Level 97 Carbon Dioxide Level 32 H Anion Gap 11 # Blood Urea Nitrogen 33 H Creatinine 1.56 H Glucose Level 85 Calcium Level 8.8 Urine Color YELLOW Urine Clarity CLEAR Urine pH 6.0 Urine Specific Ely 1.023 Urine Ketones NEGATIVE Urine Nitrite NEGATIVE Urine Bilirubin NEGATIVE Urine Urobilinogen NEGATIVE Urine Leukocyte Esterase NEGATIVE Urine Microscopic RBC 2 Urine Microscopic WBC 2 Urine Squamous Epithelial Cells FEW Urine Hemoglobin NEGATIVE Urine Random Sodium 13 L Urine Glucose NEGATIVE Urine Total Protein 1+ H Medications Medications Current Medications Enoxaparin Sodium (Lovenox) 30 mg DAILY SC Last administered on 02/18/17 09: 06; Admin Dose 30 MG; Start 02/16/17 at 09:00 Carvedilol (Coreg) 3.125 mg BID PO Last administered on 02/18/17 09:29; Admin Dose 3.125 MG; Start 02/15/17 at 21:00 Losartan Potassium (Cozaar) 25 mg DAILY PO Last administered on 02/16/17 10: 45; Admin Dose 25 MG; Start 02/16/17 at 09:00; Status Future Hold Morphine Sulfate (morphine) 2 mg Q4H PRN IV pain or shortness of breath Last administered on 02/17/17 09:32; Admin Dose 2 MG; Start 02/15/17 at 16:30 Lorazepam (Ativan) 0.5 mg HS PRN PO ANXIETY Last administered on 02/18/17 02: 21; Admin Dose 0.5 MG; Start 02/15/17 at 18:30 Spironolactone (Aldactone) 12.5 mg DAILY PO Last administered on 02/16/17 10: 45; Admin Dose 12.5 MG; Start 02/16/17 at 09:00; Status Future Hold Pantoprazole (Protonix Tab) 40 mg BID@18 PO Last administered on 02/18/17 05:14; Admin Dose 40 MG; Start 02/16/17 at 18:00 Ondansetron HCl (Zofran Inj) 4 mg Q4 PRN IV NAUSEA AND/OR VOMITING Last administered on 02/17/17 06:23; Admin Dose 4 MG; Start 02/16/17 at 21:00 YAKOV SHIELDS MD Feb 18, 2017 12:50
[2017-02-18 13:35] VITALS: BP 96/57; RESP 20
--- NOTE | 2017-02-18 14:38 | DS ---
Date/Time of Note Date/Time of Note DATE: 02/18/17 TIME: 14:28 Discharge Summary Admission/Discharge Info Admit Date/Time Feb 15, 2017 at 14:27 Discharge Date/Time February 18, 2017 Discharge Diagnosis 1. Acute chronic systolic CHF exacerbation-now euvolemic Ejection fraction at 10% Patient following up tomorrow with [facility] advanced CHF clinic for transplant eval Continue cardiac meds Cardiology consultation appreciated 2. Epigastric pain with nausea and vomiting likely secondary to gastritis as per recent EGD versus poor perfusion from severe CHF Continue PPI Extensively counseled on need to avoid NSAIDs for GI and cardiac reasons 3. Acute kidney injury secondary to overdiuresis-improved Patient Condition: Good Hospital Course Patient is a 56 yo female with h/o severe chronic systolic CHF who presents with epigastric pain, nausea/vomting and SOB. Patient has been taking excessive amount of NSAIDs and she was diagnosed with gastritis via EGD the past. Patient's GI discomfort may also be secondary to poor gastric perfusion from severe CHF. EF was noted to be a 10%, patient does have an appointment tomorrow at [facility] advanced CHF clinic for heart transplant eval. Patient was diuresed in-house, her shortness of breath and abdominal discomfort did improve , patient was saturating well at room air even while ambulating. Patient did not qualify for home O2. Patient did have acute kidney injury secondary to overdiuresis but this improved once diuretics were held. She was felt to be stable for DC on the day of discharge patient's vitals, labs and physical exam are stable she had no further acute complaints and questions were answered. Home Meds Active Scripts Spironolactone* (Aldactone*) 25 Mg Tablet, 12.5 MG PO DAILY, #30 TAB 2 Refills Prov:MAXX LO S. 02/08/17 Bumetanide* (Bumetanide*) 0.5 Mg Tablet, 0.5 MG PO BID DIURETICS, #60 TAB 2 Refills Prov:MAXX LO S. 02/08/17 Benzocaine/Menthol (SORE THROAT LOZENGE) 1 Each Lozenge, 1 LOZENGE MT Q1H Y for COUGH, #1 BOTTLE Prov:MAXX LO S. 02/08/17 Reported Medications Lorazepam* (Lorazepam*) 0.5 Mg Tablet, 0.5 MG PO HS Y for ANXIETY, TAB 12/06/16 Carvedilol* (Coreg*) 3.125 Mg Tablet, 3.125 MG PO BID, #60 TAB 12/06/16 Aspirin* (Aspirin* Chew) 81 Mg Tab.chew, 81 MG PO DAILY, TAB.CHEW 12/06/16 Discontinued Reported Medications Sacubitril/Valsartan (Entresto 24 mg-26 mg Tablet) 1 Each Tablet, 1 EACH PO BID , TAB 02/04/17 Follow-up Plan F/U WITH YOUR PCP IN 1-2 WEEKS AND YOUR CORE DRIER TOMORROW SCHEDULED Primary Care Provider Stephan Nuñez Time spent on discharge: > 30 minutes DIDIER HERRERA Feb 18, 2017 14:38
== END 2017-02-18 15:35 | disposition home or self-care (01) | DRG 391 ==
LOC: MS2 14:27
PROVIDERS: ADMIT Internal Medicine; ATTEND Internal Medicine
DX: K29.70 Gastritis, unspecified, without bleeding (principal); I11.0 Hypertensive heart disease with heart failure; I50.33 Acute on chronic diastolic (congestive) heart failure; N17.9 Acute kidney failure, unspecified; I42.0 Dilated cardiomyopathy; E86.0 Dehydration; I08.3 Combined rheumatic disorders of mitral, aortic and tricuspid valves; I27.20 Pulmonary hypertension, unspecified; Z95.810 Presence of automatic (implantable) cardiac defibrillator; Z87.891 Personal history of nicotine dependence; T50.2X5A Adverse effect of carbonic-anhydrase inhibitors, benzothiadiazides and other diuretics, initial encounter
CPT/HCPCS: 71010; 74176; 80048; 80053; 80307; 81001; 83605; 83880; 84300; 85025; 93306; C9113; J1650; J1940; J2060; J2270; J2405; J2765

== ENCOUNTER 2017-05-26 23:31 | Inpatient (IN) | END 2017-05-30 13:15 | disposition home or self-care (01) | DRG 291 ==

== ENCOUNTER 2017-06-26 21:59 | Inpatient (IN) | END 2017-06-27 17:00 | disposition home or self-care (01) | DRG 292 ==

== ENCOUNTER 2017-07-12 14:01 | Observation (INO) | END 2017-07-13 10:51 | disposition home or self-care (01) ==

== ENCOUNTER 2018-01-07 07:07 | Day surgery (SDC) | END 2018-01-07 15:55 | disposition home or self-care (01) ==

== ENCOUNTER 2018-02-24 11:22 | Inpatient (IN) | END 2018-02-26 14:43 | disposition home or self-care (01) | DRG 291 ==

== ENCOUNTER 2018-03-04 13:43 | Inpatient (IN) | END 2018-03-07 13:20 | disposition home or self-care (01) | DRG 682 ==

== ENCOUNTER 2018-06-30 09:10 | Inpatient (IN) | payer MEDICARE, OTHER ==
[~2018-06-30] VITALS: Ht 175.3 cm; Wt 102.9 kg
[~2018-06-30 09:10] MED LIST changes: +ACET250T22 PO; -ASPI81TA3 PO; +ASPI81TA52 PO; -BENZ1LOZ4 MT; -BUME0.5T PO; +BUME1TAB PO; -CARV3.12 PO; +CARV3.1260 PO; +CITA20TA11 PO; -SACU1TAB PO; +SIME80TA16 PO; -SPIR25TA PO
[2018-06-30] MEDS ORDERED: FUROSEMIDE 40 MG INJ IV STA (09:38)
[2018-06-30] MEDS ORDERED: ASPIRIN 325 MG TAB PO STA (09:38)
[2018-06-30] MEDS ORDERED: NITROGLYCERIN 2% 1 GM OINT PKT TD STA (09:38)
[2018-06-30] MEDS ORDERED: NITROGLYCERIN (SL) 0.4 MG TAB SL PRN (10:00)
[2018-06-30] MEDS ORDERED: SPIR25TA PO (10:07)
[2018-06-30] MEDS ORDERED: SACU1TAB7 PO (10:07)
[2018-06-30] MEDS ORDERED: ONDANSETRON 4 MG INJ IV PRN ×2 (12:30→15:30)
[2018-06-30] MEDS ORDERED: ACETAMINOPHEN 325 MG TAB PO PRN (12:30)
--- NOTE | 2018-06-30 12:59 | ERD ---
ER Documentation Chief Complaint Chief Complaint cough x 1 month with clear phlegm , sob h/o chf HPI Patient is a 58-year-old female with CHF who presents with cough. She says "I am retaining water". She feels like she is having a CHF exacerbation that has been worsening over the past 1 month. She has shortness of breath with minimal exertion such as walking to the bathroom. She has taken all of her medications today. Upon review of old medical records the patient has multiple visits with admissions for CHF. Review of the emergency department information exchange system shows visits to 2 separate emergency departments. Her primary doctor is Dr. Nuñez. Her nut packer is Dr. Matthews. ROS All systems reviewed and are negative except as per history of present illness. Medications Home Meds Reported Medications Sacubitril/Valsartan (Entresto 49 mg-51 mg Tablet) 1 Each Tablet, 1 TAB PO BID, TAB 06/30/18 Spironolactone* (Aldactone*) 25 Mg Tablet, 25 MG PO DAILY, #30 TAB 06/30/18 Lorazepam* (Lorazepam*) 0.5 Mg Tablet, 0.5 MG PO HS PRN for SLEEP, TAB 01/07/18 Aspirin (Low Dose Aspirin) 81 Mg Tablet.dr, 81 MG PO DAILY, #30 TAB 01/07/18 Bumetanide* (Bumetanide*) 1 Mg Tablet, 2 MG PO BID, TAB 01/07/18 Carvedilol* (Carvedilol*) 3.125 Mg Tablet, 3.125 MG PO BID, #60 TAB 01/07/18 Discontinued Scripts Citalopram Hydrobromide* (Celexa*) 20 Mg Tablet, 10 MG PO DAILY for 30 Days, #30 TAB 4 Refills Prov:RAHI,MAXX S. 03/07/18 Acetazolamide* (Acetazolamide*) 250 Mg Tablet, 250 MG PO BID, #60 TAB 2 Refills Prov:RAHI,MAXX S. 03/07/18 Simethicone (Mi-Acid) 80 Mg Tab.chew, 80 MG PO TID PRN for DISTENSION/GAS/BLOATING, #30 TAB.CHEW Prov:RAHI,MAXX S. 03/07/18 Allergies Allergies: Coded Allergies: No Known Drug Allergies (Verified Allergy, Unknown, 06/30/18) PMhx/Soc History of Surgery: Yes (gallbladder removed, pacemake AICD placement, c section) Anesthesia Reaction: No Hx Neurological Disorder: No Hx Respiratory Disorders: No Hx Cardiac Disorders: Yes (CHF, HTN) Hx Psychiatric Problems: Yes (anxiety, depression) Hx Miscellaneous Medical Probl: Yes (severe cardiomyopathy, history of AICD, pulmonary HTN, recent WILEY) Hx Alcohol Use: No Hx Substance Use: No Hx Tobacco Use: No Smoking Status: Former smoker FmHx Family History: No diabetes Physical Exam Vitals Vital Signs Date Temp Pulse Resp B/P (MAP) Pulse Ox O2 O2 Flow FiO2 Time Delivery Rate 06/30/18 Nasal 2 10:03 Cannula 06/30/18 98.1 71 22 99/63 (75) 100 09:14 Physical Exam Const: No acute distress Head: Atraumatic Eyes: Normal Conjunctiva ENT: Normal External Ears, Nose and Mouth. Neck: Full range of motion. No meningismus. Resp: Decreased breath sounds bilaterally Cardio: Regular rate and rhythm, no murmurs Abd: Soft, non tender, non distended. Normal bowel sounds Skin: No petechiae or rashes Back: No midline or flank tenderness Ext: No cyanosis, or edema Neur: Awake and alert Psych: Normal Mood and Affect Result Diagram: 06/30/18 0950 06/30/18 0950 Results 24 hrs Laboratory Tests Test 06/30/18 09:50 White Blood Count 4.6 10^3/ul Red Blood Count 4.63 10^6/ul Hemoglobin 12.7 g/dl Hematocrit 41.7 % Mean Corpuscular Volume 90.1 fl Mean Corpuscular Hemoglobin 27.4 pg Mean Corpuscular Hemoglobin Concent 30.5 g/dl Red Cell Distribution Width 15.5 % Platelet Count 177 10^3/UL Mean Platelet Volume 10.7 fl Immature Granulocytes % 0.200 % Neutrophils % 69.4 % Lymphocytes % 16.5 % Monocytes % 12.8 % Eosinophils % 0.7 % Basophils % 0.4 % Nucleated Red Blood Cells % 0.0 /100WBC Immature Granulocytes # 0.010 10^3/ul Neutrophils # 3.2 10^3/ul Lymphocytes # 0.8 10^3/ul Monocytes # 0.6 10^3/ul Eosinophils # 0.0 10^3/ul Basophils # 0.0 10^3/ul Nucleated Red Blood Cells # 0.0 10^3/ul Sodium Level 140 mmol/L Potassium Level 4.0 mmol/L Chloride Level 99 mmol/L Carbon Dioxide Level 31 mmol/L Anion Gap 10 Blood Urea Nitrogen 23 mg/dl Creatinine 1.21 mg/dl Est Glomerular Filtrat Rate mL/min 55 mL/min Glucose Level 98 mg/dl Calcium Level 9.6 mg/dl Troponin I 0.035 ng/ml Current Medications Medications Dose Sig/Yash Start Time Status Last (Trade) Ordered Route PRN Stop Time Admin Dose Reason Admin Aspirin 325 mg ONCE STAT 06/30/18 DC 06/30/18 (Aspirin) PO 09:38 06/30/18 10:07 09:40 1 inch ONCE STAT 06/30/18 DC Nitroglycerin TD 09:38 06/30/18 10:02 (Nitroglyceri n 2% Oint) 1 tab Q5M UP TO 3 06/30/18 DC Nitroglycerin DOSES PRN 10:00 06/30/18 SL .CHEST 10:02 (Nitroglyceri PAIN n (Sl Tab) 0.4 Mg) Furosemide 40 mg ONCE STAT 06/30/18 DC 06/30/18 (Lasix) IV 09:38 06/30/18 10:07 09:40 Ondansetron 4 mg ER BRIDGE 06/30/18 HCl (Zofran PRN IV 12:30 07/01/18 Inj) NAUSEA/VOMITI 12:29 NG 650 mg ER BRIDGE 06/30/18 Acetaminophen PRN PO 12:30 07/01/18 (Tylenol .MILD PAIN 12:29 Tab) 1-3 OR TEMP Procedures/MDM Chest x-ray shows mild pulmonary edema per radiology. EKG read by me: Rate/Rhythm: Paced rhythm at a normal rate Intervals: Normal Impression: Paced rhythm with negative Sgarbossa criteria Patient is a 58-year-old female with CHF who presents with acute CHF. She was given Lasix IV and aspirin. Her blood pressure was low and she would not tolerate nitroglycerin so this was held. The patient will be admitted to the care of Dr. Smart to a telemetry observation bed. I doubt pneumonia, pneumot horax, or pulmonary embolism. Departure Diagnosis: Primary Impression: CHF (congestive heart failure) Heart failure type: unspecified Heart failure chronicity: acute Qualified Codes: I50.9 - Heart failure, unspecified Additional Impression: Shortness of breath Condition: NILDA Cordon MD Jun 30, 2018 12:59
--- NOTE | 2018-06-30 14:05 | HP ---
Date/Time of Note Date/Time of Note DATE: 06/30/18 TIME: 14:05 Assessment/Plan VTE Prophylaxis Pharmacological prophylaxis: heparin Lines/Catheters IV [facility] (from [facility] Saline Lock Assessment/Plan Hospital Course 58-year-old female with comorbidities including cardiomyopathy status post AICD placement, essential hypertension, pulmonary hypertension, chronic kidney disease, obesity, and anxiety disorder who came to the emergency room with chief complaint of dyspnea, who will be admitted to inpatient setting for further treatment and evaluation. 1. Acute on chronic congestive heart failure exacerbation, systolic dysfunction. -Continue diuresis, while carefully monitoring renal function. -Will r/o any ACS. -Obtain cardiology consult. 2. Chronic kidney disease. -Use nephrotoxic drugs with caution. 3. Essential hypertension. -Resume antihypertensives. 4. Pulmonary hypertension. -Continue supplemental oxygen. 5. Cardiomyopathy. -Status post AICD placement. -Continue beta-blockers, aldosterone antagonists, and Entresto. Plan: The patient will be admitted to inpatient telemetry floor. The patient will be started on a low-cholesterol diet. The patient will be started on DVT prophylaxis. Will start the patient on ALEJANDRO and inhaled anticholinergics for bronchospasms. The patient will remain a full code. Activities will be as tolerated. The rest of the patient's management will be based on the clinical course, inputs from consultants, and the results of diagnostic studies. Based on the patient's clinical presentation, she most probably requires at least 1 midnights' stay for further management and evaluation of her clinical presentation. The patient was seen in collaboration with Dr. Smart. Result Diagram: 06/30/18 0950 06/30/18 0950 Results 24hrs Laboratory Tests Test 06/30/18 09:50 White Blood Count 4.6 L Red Blood Count 4.63 Hemoglobin 12.7 Hematocrit 41.7 Mean Corpuscular Volume 90.1 Mean Corpuscular Hemoglobin 27.4 L Mean Corpuscular Hemoglobin Concent 30.5 L Red Cell Distribution Width 15.5 H Platelet Count 177 Mean Platelet Volume 10.7 H Immature Granulocytes % 0.200 Neutrophils % 69.4 Lymphocytes % 16.5 Monocytes % 12.8 H Eosinophils % 0.7 Basophils % 0.4 Nucleated Red Blood Cells % 0.0 Immature Granulocytes # 0.010 Neutrophils # 3.2 Lymphocytes # 0.8 Monocytes # 0.6 Eosinophils # 0.0 Basophils # 0.0 Nucleated Red Blood Cells # 0.0 Sodium Level 140 Potassium Level 4.0 Chloride Level 99 Carbon Dioxide Level 31 Anion Gap 10 Blood Urea Nitrogen 23 H Creatinine 1.21 H Est Glomerular Filtrat Rate mL/min 55 L Glucose Level 98 Calcium Level 9.6 Troponin I 0.035 HPI/ROS Admit Date/Time Admit Date/Time Hx of Present Illness Reason for admission: Dyspnea. Consultants 1. Gwyn Paris DO, Cardiology. This is a 58-year-old female with comorbidities including cardiomyopathy status post AICD placement, essential hypertension, pulmonary hypertension, chronic kidney disease, obesity, and anxiety disorder who came to the emergency room with chief complaint of dyspnea that has been going on for the past few days. The patient verbalized that she has been noncompliant with her dietary restrictions. The patient was complaining of a nonproductive cough. She denied any bilateral lower extremity edema. In the emergency room, the patient's tr oponins were negative. The patient was noted to have a BUN and creatinine of 23 and 1.21 respectively. The patient's chest x-ray was showing enlarged cardiac silhouette and mild bronchial wall thickening. The patient was given a single dose of IV Lasix along with aspirin and nitro patch in the emergency room. ROS Constitutional: no complaints Eyes: no complaints ENT: no complaints Respiratory: cough, shortness of breath, sputum Cardiovascular: chest pain Gastrointestinal: no complaints Genitourinary: no complaints Musculoskeletal: no complaints Skin: no complaints Neurologic: no complaints Endocrine: no complaints Lymphatic: no complaints Psychological: no complaints Immunologic: no complaints PMH/Family/Social Past Medical History 1. Severe cardiomyopathy with ejection fraction of 20%.-Being worked up at [facility] transplant team. 2. Pulmonary hypertension. 3. Essential hypertension. 4. Chronic kidney disease. 5. Anxiety disorder due to underlying medical illness. 6. Obesity. Medications Current Medications Ondansetron HCl (Zofran Inj) 4 mg ER BRIDGE PRN IV NAUSEA/VOMITING; Start 06/30/18 at 12:30; Stop 07/01/18 at 12:29 Acetaminophen (Tylenol Tab) 650 mg ER BRIDGE PRN PO .MILD PAIN 1-3 OR TEMP; Start 06/30/18 at 12:30; Stop 07/01/18 at 12:29 Coded Allergies: No Known Drug Allergies (Verified Allergy, Unknown, 06/30/18) Past Surgical History Past Surgical Hx: cholecystectomy Family History Significant Family History: no pertinent family hx Social History Alcohol Use: none Smoking Status: Former smoker Drug Use: none Exam/Review of Systems Vital Signs Vitals Vital Signs Date Temp Pulse Resp B/P (MAP) Pulse Ox O2 O2 Flow FiO2 Time Delivery Rate 06/30/18 73 18 120/105 100 Nasal 2.0 12:56 (110) Cannula 06/30/18 98.1 09:14 Exam Exam General: Obese 58 year-old male lying in bed in mild respiratory distress. HEENT: Normocephalic, atraumatic. Eyes: Anicteric sclerae, conjunctivae clear. ENT: Nasal septum midline, oral mucosa moist. Neck supple, JVD noticed. Respiratory: Bilaterally diminished breath sounds. Use of accessory muscles of respiration. Frequent coughing spells. Cardiovascular: S1, S2 heard. Regular rate and rhythm. Abdomen: Soft, nontender, and nondistended. Bowel sounds positive in all 4 quadrants. Genitourinary: Deferred. Extremities: No cyanosis, no clubbing, no edema. Peripheral pulses palpable. Neurologic: Cranial nerves II through XII grossly intact. The patient is awake, alert, and oriented. Skin: Normal skin turgor. No skin rashes. Additional Comments CXR IMPRESSION: 1. Enlarged cardiac silhouette. Mild bronchial wall thickening compatible with trace edema versus airways inflammation. 2. Linear atelectasis or scarring in the left mid lung. GERARDO JOHN NP Jun 30, 2018 14:05
[2018-06-30 15:00] VITALS: BP 95/61; PULSE 69; RESP 16
[2018-06-30 15:25] VITALS: PULSE 70
[2018-06-30] MEDS ORDERED: NACL 0.9% 3 ML SYG IV SCH (15:30)
[2018-06-30] MEDS ORDERED: LORAZEPAM 0.5 MG TAB PO PRN ×2 (15:30→19:00)
[2018-06-30 16:00] VITALS: PULSE 70
[2018-06-30 17:04] VITALS: Ht 175.3 cm; Wt 102.9 kg
[2018-06-30 18:00] VITALS: BP 105/55; PULSE 83; RESP 16
[2018-06-30] MEDS: BUMETANIDE 1 MG INJ IV SCH (18:12)
[2018-06-30 19:08] VITALS: BP 99/60; PULSE 72; RESP 18
[2018-06-30 20:00] VITALS: PULSE 70
[2018-06-30] MEDS: ALBUTEROL/IPRATROPIUM (NEB) 3 ML AMP HHN SCH (20:22)
[2018-06-30] MEDS: GUAIFENESIN/DM 5ML CUP PO PRN (21:16)
[2018-06-30] MEDS: SACUBITRIL/VALSARTAN (49mg-51mg) TABLET PO SCH (21:18)
[2018-06-30] MEDS: HEPARIN 5,000 UNIT/1 ML VIAL SC SCH (21:28)
[2018-06-30] MEDS ORDERED: BUMETANIDE 1 MG INJ IV ONE (21:30)
[2018-07-01] VITALS (10 sets, daily range): BP systolic 85–107; BP diastolic 54–66; PULSE 70–102; RESP 16–20
[2018-07-01] MEDS: LORAZEPAM 2 MG INJ IV PRN ×2 (01:20→12:47)
[2018-07-01] MEDS: GUAIFENESIN/DM 5ML CUP PO PRN (01:20)
[2018-07-01] MEDS: ALBUTEROL/IPRATROPIUM (NEB) 3 ML AMP HHN SCH ×4 (01:28→20:18)
[2018-07-01] MEDS ORDERED: BENZONATATE 100 MG CAP PO PRN (03:00)
[2018-07-01] MEDS: BUMETANIDE 1 MG INJ IV SCH ×2 (05:42→18:07)
[2018-07-01] MEDS: ACETAMINOPHEN 325 MG TAB PO PRN ×2 (05:45→11:18)
[2018-07-01] MEDS: HEPARIN 5,000 UNIT/1 ML VIAL SC SCH ×3 (05:51→20:48)
[2018-07-01] MEDS: ASPIRIN (EC) 81 MG TAB PO SCH (09:24)
[2018-07-01] MEDS: SPIRONOLACTONE 25 MG TAB PO SCH (09:24)
[2018-07-01] MEDS: SACUBITRIL/VALSARTAN (49mg-51mg) TABLET PO SCH ×2 (09:24→20:35)
--- NOTE | 2018-07-01 12:00 | PN ---
Date/Time of Note Date/Time of Note DATE: 07/01/18 TIME: 11:57 Assessment/Plan VTE Prophylaxis Risk score (from [facility])>0 risk: 3 SCD applied (from [facility]): No SCD contraindicated: other Pharmacological prophylaxis: heparin Lines/Catheters IV [facility] Saline Lock Urinary Cath still in place: No Assessment/Plan Hospital Course 58-year-old female with comorbidities including cardiomyopathy status post AICD placement, essential hypertension, pulmonary hypertension, chronic kidney disease, obesity, and anxiety disorder who came to the emergency room with chief complaint of dyspnea, who was admitted to inpatient setting for further treatment and evaluation. 1. Acute on chronic congestive heart failure exacerbation, systolic dysfunction. -Continue diuresis, while carefully monitoring renal function. -Cardiology consult pending. 2. Chronic kidney disease. -Use nephrotoxic drugs with caution. -Nephrology consult obtained. 3. Essential hypertension. -Continue antihypertensives. 4. Pulmonary hypertension. -Continue supplemental oxygen. 5. Cardiomyopathy. -Status post AICD placement. -Continue beta-blockers, aldosterone antagonists, and Entresto. 6. Reactive airway disease. -Continue ALEJANDRO and inhaled anticholinergics for bronchospasms. 7. Obesity. -BMI 33.5 kg/m. 8. Fluids, electrolytes, and nutrition. -Low-cholesterol diet 9. DVT prophylaxis -Subcutaneous heparin. 10. Plan. -Continue diuresis while carefully monitoring renal function. -Await cardiology evaluation. -Await clinical improvement. The patient was seen in collaboration with Dr. Smart. Result Diagram: 07/01/18 0543 07/01/18 0543 Results 24hrs Laboratory Tests Test 06/30/18 15:11 06/30/18 21:34 07/01/18 05:43 Creatine Kinase 58 148 Creatine Kinase Index 0.8 0.4 Creatinine Kinase MB (Mass) 0.44 0.62 Troponin I 0.026 0.026 White Blood Count 6.9 # Red Blood Count 4.69 Hemoglobin 12.9 Hematocrit 41.8 Mean Corpuscular Volume 89.1 Mean Corpuscular Hemoglobin 27.5 L Mean Corpuscular Hemoglobin Concent 30.9 L Red Cell Distribution Width 15.6 H Platelet Count 191 Mean Platelet Volume 11.5 H Immature Granulocytes % 0.300 Neutrophils % 69.6 Lymphocytes % 15.3 Monocytes % 13.6 H Eosinophils % 0.6 Basophils % 0.6 Nucleated Red Blood Cells % 0.0 Immature Granulocytes # 0.020 Neutrophils # 4.8 Lymphocytes # 1.1 Monocytes # 0.9 Eosinophils # 0.0 Basophils # 0.0 Nucleated Red Blood Cells # 0.0 Sodium Level 140 Potassium Level 4.1 Chloride Level 99 Carbon Dioxide Level 29 Anion Gap 12 Blood Urea Nitrogen 24 H Creatinine 1.30 H Est Glomerular Filtrat Rate mL/min 51 L Glucose Level 96 Calcium Level 9.8 Phosphorus Level 3.9 Magnesium Level 2.1 Total Bilirubin 1.8 H Direct Bilirubin 0.00 Indirect Bilirubin 1.8 H Aspartate Amino Transf (AST/SGOT) 30 Alanine Aminotransferase (ALT/SGPT) 33 Alkaline Phosphatase 123 H B-Type Natriuretic Peptide 16921 H Total Protein 7.3 Albumin 4.3 Globulin 3.00 Albumin/Globulin Ratio 1.43 Triglycerides Level 91 Cholesterol Level 138 LDL Cholesterol, Calculated 82 HDL Cholesterol 38 Cholesterol/HDL Ratio 3.6 Exam/Review of Systems Exam Vitals Vital Signs Date Temp Pulse Resp B/P (MAP) Pulse Ox O2 O2 Flow FiO2 Time Delivery Rate 07/01/18 98.3 79 16 85/54 (64) 96 11:23 07/01/18 21 09:05 07/01/18 Nasal 2.0 08:30 Cannula Results Results 24hrs Laboratory Tests Test 06/30/18 15:11 06/30/18 21:34 07/01/18 05:43 Creatine Kinase 58 148 Creatine Kinase Index 0.8 0.4 Creatinine Kinase MB (Mass) 0.44 0.62 Troponin I 0.026 0.026 White Blood Count 6.9 # Red Blood Count 4.69 Hemoglobin 12.9 Hematocrit 41.8 Mean Corpuscular Volume 89.1 Mean Corpuscular Hemoglobin 27.5 L Mean Corpuscular Hemoglobin Concent 30.9 L Red Cell Distribution Width 15.6 H Platelet Count 191 Mean Platelet Volume 11.5 H Immature Granulocytes % 0.300 Neutrophils % 69.6 Lymphocytes % 15.3 Monocytes % 13.6 H Eosinophils % 0.6 Basophils % 0.6 Nucleated Red Blood Cells % 0.0 Immature Granulocytes # 0.020 Neutrophils # 4.8 Lymphocytes # 1.1 Monocytes # 0.9 Eosinophils # 0.0 Basophils # 0.0 Nucleated Red Blood Cells # 0.0 Sodium Level 140 Potassium Level 4.1 Chloride Level 99 Carbon Dioxide Level 29 Anion Gap 12 Blood Urea Nitrogen 24 H Creatinine 1.30 H Est Glomerular Filtrat Rate mL/min 51 L Glucose Level 96 Calcium Level 9.8 Phosphorus Level 3.9 Magnesium Level 2.1 Total Bilirubin 1.8 H Direct Bilirubin 0.00 Indirect Bilirubin 1.8 H Aspartate Amino Transf (AST/SGOT) 30 Alanine Aminotransferase (ALT/SGPT) 33 Alkaline Phosphatase 123 H B-Type Natriuretic Peptide 66294 H Total Protein 7.3 Albumin 4.3 Globulin 3.00 Albumin/Globulin Ratio 1.43 Triglycerides Level 91 Cholesterol Level 138 LDL Cholesterol, Calculated 82 HDL Cholesterol 38 Cholesterol/HDL Ratio 3.6 Medications Medication Current Medications IV Flush (NS 3 ml) 3 ml PER PROTOCOL IV ; Start 06/30/18 at 15:30 Ondansetron HCl (Zofran Inj) 4 mg Q6H PRN IV NAUSEA/VOMITING; Start 06/30/18 at 15:30 Acetaminophen (Tylenol Tab) 650 mg Q6H PRN PO .PAIN 1-3 OR TEMP Last administered on 07/01/18 11:18; Admin Dose 650 MG; Start 06/30/18 at 15:30 Heparin Sodium (Porcine) (Heparin (5000 Units/1ml)) 5,000 unit Q8 SC Last administered on 07/01/18 05:51; Admin Dose 5,000 UNIT; Start 06/30/18 at 22:00 Aspirin (Halfprin) 81 mg DAILY PO Last administered on 07/01/18 09:24; Admin Dose 81 MG; Start 07/01/18 at 09:00 Carvedilol (Coreg) 3.125 mg BID PO Last administered on 07/01/18 09:25; Admin Dose 3.125 MG; Start 06/30/18 at 21:00 Sacubitril/ Valsartan (Entresto 49 Mg-51 Mg) 1 tab BID PO Last administered on 07/01/18 09:24; Admin Dose 1 TAB; Start 06/30/18 at 21:00 Spironolactone (Aldactone) 25 mg DAILY PO Last administered on 07/01/18 09:24; Admin Dose 25 MG; Start 07/01/18 at 09:00 Bumetanide (Bumex) 1 mg BID DIURETICS IV Last administered on 07/01/18 05:42; Admin Dose 1 MG; Start 06/30/18 at 18:00 Albuterol/ Ipratropium (Duoneb) 3 ml Q6H RESP THERAPY HHN Last administered on 07/01/18at 09:02; Admin Dose 3 ML; Start 06/30/18 at 20:00 Guaifenesin/ Dextromethorphan (Robitussin Dm Liquid Cup) 5 ml Q4H PRN PO Cough Last administered on 07/01/18at 01:20; Admin Dose 5 ML; Start 06/30/18 at 16:00 Lorazepam (Ativan) 0.5 mg Q6H PRN IV ANXIETY Last administered on 07/01/18 01:20; Admin Dose 0.5 MG; Start 07/01/18 at 01:30 Benzonatate (Tessalon) 100 mg TID PRN PO COUGH Last administered on 07/01/18at 02:48; Admin Dose 100 MG; Start 07/01/18 at 03:00 GERARDO JOHN NP Jul 01, 2018 12:00
[2018-07-01] MEDS ORDERED: METHYLPREDNISOLONE 125 MG INJ IV ONE (13:00)
[2018-07-01] MEDS ORDERED: METOLAZONE 2.5 MG TAB PO ONE (16:30)
--- NOTE | 2018-07-01 17:29 | CONS ---
Assessment/Plan Cardiology NYHA: III Heart Failure Type: Acute on Chronic Heart Failure Type: Both Assessment/Plan Hospital Course (Demo Recall) Acute decompensated systolic congestive heart failure ? Bronchitis Severe cardiomyopathy History of biventricular pacemaker/ICD Pulmonary hypertension Acute kidney injury -Patient presents with shortness of breath and fatigue progressing over the past month. There is evidence of mild volume overload. Diuretics are being adjusted by nephrology. -Serial cardiac enzymes are negative. -Given chest x-ray findings, if no improvement in symptoms with diuresis, consider trial of antibiotics given possible bronchitis. Consultation Date/Type/Reason Admit Date/Time Type of Consult Cardiology Reason for Consultation Shortness of breath and fatigue Date/Time of Note DATE: 07/01/18 TIME: 17:25 Hx of Present Illness This is a 58-year-old female well-known to me past medical history of severe cardiomyopathy who presents with progressive worsening shortness of breath and fatigue over the past month. Shortness breath is with exertion and improved at rest. Patient feels tired all the time. She denies exertional chest pain. She has intermittent cough. She is unsure if she is having fever or chills. Denies any dizziness or lightheadedness. 12 point review of systems was performed with all pertinent positives and negatives mentioned above and all else is negative Past Medical History Medical History: congestive heart failure Home Meds Reported Medications Sacubitril/Valsartan (Entresto 49 mg-51 mg Tablet) 1 Each Tablet, 1 TAB PO BID, TAB 06/30/18 Spironolactone* (Aldactone*) 25 Mg Tablet, 25 MG PO DAILY, #30 TAB 06/30/18 Lorazepam* (Lorazepam*) 0.5 Mg Tablet, 0.5 MG PO HS PRN for SLEEP, TAB 01/07/18 Aspirin (Low Dose Aspirin) 81 Mg Tablet.dr, 81 MG PO DAILY, #30 TAB 01/07/18 Bumetanide* (Bumetanide*) 1 Mg Tablet, 2 MG PO BID, TAB 01/07/18 Carvedilol* (Carvedilol*) 3.125 Mg Tablet, 3.125 MG PO BID, #60 TAB 01/07/18 Discontinued Scripts Citalopram Hydrobromide* (Celexa*) 20 Mg Tablet, 10 MG PO DAILY for 30 Days, #30 TAB 4 Refills Prov:MAXX LO S. 03/07/18 Acetazolamide* (Acetazolamide*) 250 Mg Tablet, 250 MG PO BID, #60 TAB 2 Refills Prov:MAXX LO S. 03/07/18 Simethicone (Mi-Acid) 80 Mg Tab.chew, 80 MG PO TID PRN for DISTENSION/GAS/BLOATING, #30 TAB.CHEW Prov:MAXX LO S. 03/07/18 Medications Current Medications IV Flush (NS 3 ml) 3 ml PER PROTOCOL IV ; Start 06/30/18 at 15:30 Ondansetron HCl (Zofran Inj) 4 mg Q6H PRN IV NAUSEA/VOMITING; Start 06/30/18 at 15:30 Acetaminophen (Tylenol Tab) 650 mg Q6H PRN PO .PAIN 1-3 OR TEMP Last administered on 07/01/18 11:18; Admin Dose 650 MG; Start 06/30/18 at 15:30 Heparin Sodium (Porcine) (Heparin (5000 Units/1ml)) 5,000 unit Q8 SC Last administered on 07/01/18 14:43; Admin Dose 5,000 UNIT; Start 06/30/18 at 22:00 Aspirin (Halfprin) 81 mg DAILY PO Last administered on 07/01/18 09:24; Admin Dose 81 MG; Start 07/01/18 at 09:00 Carvedilol (Coreg) 3.125 mg BID PO Last administered on 07/01/18 09:25; Admin Dose 3.125 MG; Start 06/30/18 at 21:00 Sacubitril/ Valsartan (Entresto 49 Mg-51 Mg) 1 tab BID PO Last administered on 07/01/18 09:24; Admin Dose 1 TAB; Start 06/30/18 at 21:00 Spironolactone (Aldactone) 25 mg DAILY PO Last administered on 07/01/18 09:24; Admin Dose 25 MG; Start 07/01/18 at 09:00 Bumetanide (Bumex) 1 mg BID DIURETICS IV Last administered on 07/01/18 05:42; Admin Dose 1 MG; Start 06/30/18 at 18:00 Albuterol/ Ipratropium (Duoneb) 3 ml Q6H RESP THERAPY HHN Last administered on 07/01/18at 14:41; Admin Dose 3 ML; Start 06/30/18 at 20:00 Guaifenesin/ Dextromethorphan (Robitussin Dm Liquid Cup) 5 ml Q4H PRN PO Cough Last administered on 07/01/18at 01:20; Admin Dose 5 ML; Start 06/30/18 at 16:00 Lorazepam (Ativan) 0.5 mg Q6H PRN IV ANXIETY Last administered on 07/01/18at 12:47; Admin Dose 0.5 MG; Start 07/01/18 at 01:30 Benzonatate (Tessalon) 100 mg TID PRN PO COUGH Last administered on 07/01/18at 02:48; Admin Dose 100 MG; Start 07/01/18 at 03:00 Allergies: Coded Allergies: No Known Drug Allergies (Verified Allergy, Unknown, 07/01/18) Past Surgical History Past Surgical Hx: cholecystectomy, other (BiV ICD) Family History Significant Family History: no pertinent family hx Social History Alcohol Use: none Smoking Status: Former smoker Drug Use: none Exam/Review of Systems Vital Signs Vitals Vital Signs Date Temp Pulse Resp B/P (MAP) Pulse Ox O2 O2 Flow FiO2 Time Delivery Rate 07/01/18 85 16:57 07/01/18 98.0 16 94/63 (73) 100 15:28 07/01/18 21 14:45 07/01/18 Nasal 2.0 08:30 Cannula Exam Constitutional: alert, oriented (No apparent distress) Head: normocephalic Respiratory: other (Coarse breath sounds bilaterally, no wheezing) Cardiovascular: regular rate and rhythm (S1-S2 heard) Gastrointestinal: soft, non-tender, bowel sounds Extremities: edema (Trace) Labs Result Diagram: 07/01/18 0543 07/01/18 0543 Results 24hrs Laboratory Tests Test 06/30/18 21:34 07/01/18 05:43 Creatine Kinase 148 Creatine Kinase Index 0.4 Creatinine Kinase MB (Mass) 0.62 Troponin I 0.026 White Blood Count 6.9 # Red Blood Count 4.69 Hemoglobin 12.9 Hematocrit 41.8 Mean Corpuscular Volume 89.1 Mean Corpuscular Hemoglobin 27.5 L Mean Corpuscular Hemoglobin Concent 30.9 L Red Cell Distribution Width 15.6 H Platelet Count 191 Mean Platelet Volume 11.5 H Immature Granulocytes % 0.300 Neutrophils % 69.6 Lymphocytes % 15.3 Monocytes % 13.6 H Eosinophils % 0.6 Basophils % 0.6 Nucleated Red Blood Cells % 0.0 Immature Granulocytes # 0.020 Neutrophils # 4.8 Lymphocytes # 1.1 Monocytes # 0.9 Eosinophils # 0.0 Basophils # 0.0 Nucleated Red Blood Cells # 0.0 Sodium Level 140 Potassium Level 4.1 Chloride Level 99 Carbon Dioxide Level 29 Anion Gap 12 Blood Urea Nitrogen 24 H Creatinine 1.30 H Est Glomerular Filtrat Rate mL/min 51 L Glucose Level 96 Calcium Level 9.8 Phosphorus Level 3.9 Magnesium Level 2.1 Total Bilirubin 1.8 H Direct Bilirubin 0.00 Indirect Bilirubin 1.8 H Aspartate Amino Transf (AST/SGOT) 30 Alanine Aminotransferase (ALT/SGPT) 33 Alkaline Phosphatase 123 H B-Type Natriuretic Peptide 69294 H Total Protein 7.3 Albumin 4.3 Globulin 3.00 Albumin/Globulin Ratio 1.43 Triglycerides Level 91 Cholesterol Level 138 LDL Cholesterol, Calculated 82 HDL Cholesterol 38 Cholesterol/HDL Ratio 3.6 Medications Medications Current Medications IV Flush (NS 3 ml) 3 ml PER PROTOCOL IV ; Start 06/30/18 at 15:30 Ondansetron HCl (Zofran Inj) 4 mg Q6H PRN IV NAUSEA/VOMITING; Start 06/30/18 at 15:30 Acetaminophen (Tylenol Tab) 650 mg Q6H PRN PO .PAIN 1-3 OR TEMP Last administered on 07/01/18at 11:18; Admin Dose 650 MG; Start 06/30/18 at 15:30 Heparin Sodium (Porcine) (Heparin (5000 Units/1ml)) 5,000 unit Q8 SC Last administered on 07/01/18at 14:43; Admin Dose 5,000 UNIT; Start 06/30/18 at 22:00 Aspirin (Halfprin) 81 mg DAILY PO Last administered on 07/01/18at 09:24; Admin Dose 81 MG; Start 07/01/18 at 09:00 Carvedilol (Coreg) 3.125 mg BID PO Last administered on 07/01/18 09:25; Admin Dose 3.125 MG; Start 06/30/18 at 21:00 Sacubitril/ Valsartan (Entresto 49 Mg-51 Mg) 1 tab BID PO Last administered on 07/01/18 09:24; Admin Dose 1 TAB; Start 06/30/18 at 21:00 Spironolactone (Aldactone) 25 mg DAILY PO Last administered on 07/01/18 09:24; Admin Dose 25 MG; Start 07/01/18 at 09:00 Bumetanide (Bumex) 1 mg BID DIURETICS IV Last administered on 07/01/18 05:42; Admin Dose 1 MG; Start 06/30/18 at 18:00 Albuterol/ Ipratropium (Duoneb) 3 ml Q6H RESP THERAPY HHN Last administered on 07/01/18 14:41; Admin Dose 3 ML; Start 06/30/18 at 20:00 Guaifenesin/ Dextromethorphan (Robitussin Dm Liquid Cup) 5 ml Q4H PRN PO Cough Last administered on 07/01/18 01:20; Admin Dose 5 ML; Start 06/30/18 at 16:00 Lorazepam (Ativan) 0.5 mg Q6H PRN IV ANXIETY Last administered on 07/01/18 12:47; Admin Dose 0.5 MG; Start 07/01/18 at 01:30 Benzonatate (Tessalon) 100 mg TID PRN PO COUGH Last administered on 07/01/18 02:48; Admin Dose 100 MG; Start 07/01/18 at 03:00 Gwyn Paris DO Jul 01, 2018 17:29
--- NOTE | 2018-07-01 18:04 | CONS ---
DATE OF ADMISSION: 06/30/2018 DATE OF CONSULTATION: 07/01/2018 TYPE OF CONSULTATION: Nephrology. REASON FOR CONSULTATION: Acute kidney injury, CHF. PHYSICIAN REQUESTING CONSULT: Mikey Bailey NP HISTORY OF PRESENT ILLNESS: This is a 58-year-old female who is well known to me with past medical h istory of cardiomyopathy with ejection fraction of 20%, history of biventricular pacemaker, AICD plac ement, history of mitral and aortic valve disease, history of pulmonary hypertension, CKD with previo us baseline creatinine around 1.3 mg/dL, history of cardiorenal syndrome who presents to [facility] with worsening shortness of breath. The patient states that over the past several d ays she has had increasing shortness of breath. The patient also describes having less urinary outpu t during this time. As a result, she came into the emergency room for evaluation. Upon arrival, the patient had a chest x-ray which showed enlarged cardiac silhouette. The patient was given diuretic therapy and was admitted to telemetry for evaluation. Upon my evaluation of the patient at this time, she is currently complaining of shortness of breath. Denies any fevers, chills, nausea or vomiting. PAST MEDICAL HISTORY: History of CKD, history of cardiorenal syndrome, history of cardiomyopathy. PAST SURGICAL HISTORY: Status post cholecystectomy, status post AICD placement, status post biventri cular pacemaker placement. FAMILY HISTORY: No family history of kidney disease. SOCIAL HISTORY: Does not drink, smoke or do drugs. MEDICATIONS: Have been reviewed. REVIEW OF SYSTEMS: A 14-point review of systems was conducted. Pertinent positives stated in HPI, o therwise negative. PHYSICAL EXAMINATION: VITAL SIGNS: Blood pressure is 112/72, respirations 16, pulse 72, temperature 98.6. HEENT: Head is normocephalic. Pupils are round, reactive to light. NECK: Shows positive JVD. HEART: Regular rate. LUNGS: Show diminished breath sounds at base. Positive crackles. ABDOMEN: Soft, nontender to palpation without rebound or guarding. EXTREMITIES: Negative for clubbing, cyanosis. Trace edema. DERMATOLOGIC: No rashes. MUSCULOSKELETAL: No joint effusion. NEUROLOGIC: No focal deficits. LABORATORY DATA: Shows white count 6.9, hemoglobin 12.9, platelet count is 191. Sodium 140, potassi um 4.1, BUN 24, creatinine 1.31. Total bilirubin 1.8. BNP 10,000. IMAGING STUDIES: Reviewed. ASSESSMENT AND PLAN: This is a 58-year-old female who presents with: 1. Chronic kidney disease stage III with baseline creatinine of 1.5 to 1.7 mg/dL. Etiology of chron ic kidney disease is likely secondary to cardiorenal syndrome type 2. The patient's renal function a ppears to be at her near baseline. At this point, we would check urinalysis, check urine electrolyte s. We would continue current diuretic regimen of Bumex 1 mg b.i.d. We will also add metolazone 2.5 mg to augment diuresis. We will monitor renal function and electrolytes closely. 2. Acute on chronic systolic heart failure with ejection fraction approximately 20%. Continue curre nt diuretic regimen. Monitor renal function and electrolytes closely. 3. Acute respiratory failure secondary to congestive heart failure exacerbation. Continue current m edical management. Continue diuretic therapy. Continue intermittent nebulizers. 4. Cardiomyopathy, status post AICD placement. Continue medical management. Continue beta luis e, Aldactone and Entresto. 5. History of pulmonary hypertension. Continue current treatment plan. 6. Hypertension. Continue blood pressure regimen. 7. History of reactive airway disease. Continue medical management. 8. Obesity. Continue dietary modification. 9. Mineral bone disorder. Monitor calcium and phosphorus levels. Thank you, Brian, for this very interesting consult. It will be a pleasure to follow patient with you throughout the hospital course. Dictated By: AZEEM BERNARD DO NR/NTS Conf#: [id number] DID#: [id number] CC: ROSALIA SPEAR DO; MANDI AUSTIN MD;*End*
[2018-07-02] VITALS (11 sets, daily range): BP systolic 91–112; BP diastolic 53–66; PULSE 70–102; RESP 16–19
[2018-07-02] MEDS: ALBUTEROL/IPRATROPIUM (NEB) 3 ML AMP HHN SCH ×4 (02:18→20:04)
[2018-07-02] MEDS: ASPIRIN (EC) 81 MG TAB PO SCH (09:19)
[2018-07-02] MEDS: SPIRONOLACTONE 25 MG TAB PO SCH (09:19)
[2018-07-02] MEDS: SACUBITRIL/VALSARTAN (49mg-51mg) TABLET PO SCH ×2 (09:20→20:48)
[2018-07-02] MEDS: BUMETANIDE 1 MG INJ IV SCH ×2 (09:27→18:18)
[2018-07-02] MEDS ORDERED: METOLAZONE 5 MG TAB PO ONE (09:30)
[2018-07-02] MEDS: HEPARIN 5,000 UNIT/1 ML VIAL SC SCH ×3 (09:33→20:49)
[2018-07-02] MEDS ORDERED: AZITHROMYCIN 500MG/NS (PMX) 250 ML IVPB SCH (13:00)
--- NOTE | 2018-07-02 13:49 | PN ---
Date/Time of Note Date/Time of Note DATE: 07/02/18 TIME: 13:49 Assessment/Plan VTE Prophylaxis Risk score (from Ns)>0 risk: 1 SCD applied (from [facility] [place]): No SCD contraindicated: other Pharmacological prophylaxis: heparin Lines/Catheters IV Catheter Type (from [facility] Saline Lock Urinary Cath still in place: No Assessment/Plan Hospital Course SUBJECTIVE: Breathing better. Complains of productive cough. OBJECTIVE: Physical Exam General: Obese 58 year-old male lying in bed in mild respiratory distress. HEENT: Normocephalic, atraumatic. Eyes: Anicteric sclerae, conjunctivae clear. ENT: Nasal septum midline, oral mucosa moist. Neck supple, JVD noticed. Respiratory: Bilaterally diminished breath sounds. Use of accessory muscles of respiration. Frequent coughing spells. Expiratory wheezing. Cardiovascular: S1, S2 heard. Regular rate and rhythm. Abdomen: Soft, nontender, and nondistended. Bowel sounds positive in all 4 quadrants. Genitourinary: Deferred. Extremities: No cyanosis, no clubbing, no edema. Peripheral pulses palpable. Neurologic: Cranial nerves II through XII grossly intact. The patient is awake, alert, and oriented. Skin: Normal skin turgor. No skin rashes. Labs & Vitals per chart ASSESSMENT & PLAN 58-year-old female with comorbidities including cardiomyopathy status post AICD placement, essential hypertension, pulmonary hypertension, chronic kidney disease, obesity, and anxiety disorder who came to the emergency room with chief complaint of dyspnea, who was admitted to inpatient setting for further treatment and evaluation. 1. Acute on chronic congestive heart failure exacerbation, systolic dysfunction. -Continue diuresis, while carefully monitoring renal function. -Cardiology following. 2. Chronic kidney disease. -Use nephrotoxic drugs with caution. -Nephrology following. 3. Essential hypertension. -Continue antihypertensives. 4. Pulmonary hypertension. -Continue supplemental oxygen. 5. Cardiomyopathy. -Status post AICD placement. -Continue beta-blockers, aldosterone antagonists, and Entresto. 6. Reactive airway disease. Suspect bronchitis. -Continue ALEJANDRO and inhaled anticholinergics for bronchospasms. -Start tapering dose of steroids. -Short course of antimicrobials for underlying bronchitis. 7. Obesity. -BMI 33.5 kg/m. 8. Fluids, electrolytes, and nutrition. -Low-cholesterol diet 9. DVT prophylaxis -Subcutaneous heparin. 10. Plan. -Continue diuresis while carefully monitoring renal function. -Short course of steroids and antimicrobials. -Await clinical improvement. Case discussed with Cardiology. The patient was seen in collaboration with Dr. Smart. Result Diagram: 07/02/18 0509 07/02/18 0509 Results 24hrs Laboratory Tests Test 07/02/18 05:00 07/02/18 05:09 Urine Color YELLOW Urine Clarity CLEAR Urine pH 6.0 Urine Specific [place] 1.011 Urine Ketones NEGATIVE Urine Nitrite NEGATIVE Urine Bilirubin NEGATIVE Urine Urobilinogen NEGATIVE Urine Leukocyte Esterase NEGATIVE Urine Hemoglobin NEGATIVE Urine Random Creatinine 59.10 Urine Random Sodium 137 H Urine Glucose NEGATIVE Urine Total Protein 8.0 White Blood Count 8.3 # Red Blood Count 4.43 Hemoglobin 12.2 Hematocrit 39.2 Mean Corpuscular Volume 88.5 Mean Corpuscular Hemoglobin 27.5 L Mean Corpuscular Hemoglobin Concent 31.1 L Red Cell Distribution Width 15.0 H Platelet Count 178 Mean Platelet Volume 11.0 H Immature Granulocytes % 0.500 H Neutrophils % 89.6 H Lymphocytes % 4.4 L Monocytes % 5.4 Eosinophils % 0.0 Basophils % 0.1 Nucleated Red Blood Cells % 0.0 Immature Granulocytes # 0.040 H Neutrophils # 7.4 Lymphocytes # 0.4 L Monocytes # 0.5 Eosinophils # 0.0 Basophils # 0.0 Nucleated Red Blood Cells # 0.0 Sodium Level 138 Potassium Level 3.6 Chloride Level 98 Carbon Dioxide Level 31 Anion Gap 9 Blood Urea Nitrogen 24 H Creatinine 1.14 H Est Glomerular Filtrat Rate mL/min 59 L Glucose Level 146 # Calcium Level 9.6 Phosphorus Level 3.9 Magnesium Level 2.2 Exam/Review of Systems Exam Vitals Vital Signs Date Temp Pulse Resp B/P (MAP) Pulse Ox O2 O2 Flow FiO2 Time Delivery Rate 07/02/18 76 18 100 21 13:01 07/02/18 97.9 112/63 11:17 (79) 07/01/18 2.0 20:22 07/01/18 Nasal 20:20 Cannula Intake and Output 07/01/18 07/01/18 07/02/18 1515:00 23:00 07:00 IntakeIntake Total 1600 ml 1200 ml OutputOutput Total 1100 ml BalanceBalance 1600 ml 100 ml Results Results 24hrs Laboratory Tests Test 07/02/18 05:00 07/02/18 05:09 Urine Color YELLOW Urine Clarity CLEAR Urine pH 6.0 Urine Specific [place] 1.011 Urine Ketones NEGATIVE Urine Nitrite NEGATIVE Urine Bilirubin NEGATIVE Urine Urobilinogen NEGATIVE Urine Leukocyte Esterase NEGATIVE Urine Hemoglobin NEGATIVE Urine Random Creatinine 59.10 Urine Random Sodium 137 H Urine Glucose NEGATIVE Urine Total Protein 8.0 White Blood Count 8.3 # Red Blood Count 4.43 Hemoglobin 12.2 Hematocrit 39.2 Mean Corpuscular Volume 88.5 Mean Corpuscular Hemoglobin 27.5 L Mean Corpuscular Hemoglobin Concent 31.1 L Red Cell Distribution Width 15.0 H Platelet Count 178 Mean Platelet Volume 11.0 H Immature Granulocytes % 0.500 H Neutrophils % 89.6 H Lymphocytes % 4.4 L Monocytes % 5.4 Eosinophils % 0.0 Basophils % 0.1 Nucleated Red Blood Cells % 0.0 Immature Granulocytes # 0.040 H Neutrophils # 7.4 Lymphocytes # 0.4 L Monocytes # 0.5 Eosinophils # 0.0 Basophils # 0.0 Nucleated Red Blood Cells # 0.0 Sodium Level 138 Potassium Level 3.6 Chloride Level 98 Carbon Dioxide Level 31 Anion Gap 9 Blood Urea Nitrogen 24 H Creatinine 1.14 H Est Glomerular Filtrat Rate mL/min 59 L Glucose Level 146 # Calcium Level 9.6 Phosphorus Level 3.9 Magnesium Level 2.2 Medications Medication Current Medications IV Flush (NS 3 ml) 3 ml PER PROTOCOL IV ; Start 06/30/18 at 15:30 Ondansetron HCl (Zofran Inj) 4 mg Q6H PRN IV NAUSEA/VOMITING; Start 06/30/18 at 15:30 Acetaminophen (Tylenol Tab) 650 mg Q6H PRN PO .PAIN 1-3 OR TEMP Last administered on 07/01/18at 11:18; Admin Dose 650 MG; Start 06/30/18 at 15:30 Heparin Sodium (Porcine) (Heparin (5000 Units/1ml)) 5,000 unit Q8 SC Last administered on 07/02/18 09:33; Admin Dose 5,000 UNIT; Start 06/30/18 at 22:00 Aspirin (Halfprin) 81 mg DAILY PO Last administered on 07/02/18 09:19; Admin Dose 81 MG; Start 07/01/18 at 09:00 Carvedilol (Coreg) 3.125 mg BID PO Last administered on 07/01/18at 20:34; Admin Dose 3.125 MG; Start 06/30/18 at 21:00 Sacubitril/ Valsartan (Entresto 49 Mg-51 Mg) 1 tab BID PO Last administered on 07/02/18 09:20; Admin Dose 1 TAB; Start 06/30/18 at 21:00 Spironolactone (Aldactone) 25 mg DAILY PO Last administered on 07/02/18 09:19; Admin Dose 25 MG; Start 07/01/18 at 09:00 Bumetanide (Bumex) 1 mg BID DIURETICS IV Last administered on 07/02/18 09:27; Admin Dose 1 MG; Start 06/30/18 at 18:00 Albuterol/ Ipratropium (Duoneb) 3 ml Q6H RESP THERAPY HHN Last administered on 07/02/18 13:01; Admin Dose 3 ML; Start 06/30/18 at 20:00 Guaifenesin/ Dextromethorphan (Robitussin Dm Liquid Cup) 5 ml Q4H PRN PO Cough Last administered on 07/01/18 01:20; Admin Dose 5 ML; Start 06/30/18 at 16:00 Lorazepam (Ativan) 0.5 mg Q6H PRN IV ANXIETY Last administered on 07/01/18 12:47; Admin Dose 0.5 MG; Start 07/01/18 at 01:30 Benzonatate (Tessalon) 100 mg TID PRN PO COUGH Last administered on 07/01/18 02:48; Admin Dose 100 MG; Start 07/01/18 at 03:00 Methylprednisolone Sodium Succinate (Solu-Medrol) 60 mg Q8 IV ; Start 07/02/18 at 14:00 Azithromycin 250 ml @ 250 mls/hr Q24H IVPB ; Start 07/02/18 at 13:00 GERARDO JOHN NP Jul 02, 2018 13:49
--- NOTE | 2018-07-02 14:09 | PN ---
DATE: 07/02/2018 SUBJECTIVE: The patient is stable. The patient is complaining about ____ shortness of breath. No o ther events noted overnight. No fevers, chills, nausea, vomiting. OBJECTIVE: VITAL SIGNS: Blood pressure is 103/64, respirations 16, pulse 95, temperature 97.6. HEENT: Head is normocephalic. NECK: Supple. HEART: Regular rate. LUNGS: Show diminished breath sounds at the base. ABDOMEN: Soft, nontender to palpation without rebound or guarding. EXTREMITIES: Negative for clubbing, cyanosis. Trace edema. DERMATOLOGIC: No rashes. MUSCULOSKELETAL: No joint effusion. NEUROLOGIC: No focal deficits. MEDICATIONS: Have been reviewed. LABORATORY DATA: Have been reviewed. Urinalysis was reviewed. ASSESSMENT AND PLAN: 1. Nonoliguric acute kidney injury on top of chronic kidney disease with previous baseline creatinin e of 1.4 to 1.7 mg/dL. Etiology of acute kidney injury is likely due to cardiorenal syndrome. The p atient is clinically improving after intensifying diuretic therapy. The patient is also complaining about ____ shortness of breath. We will continue her current diuretic regimen of Bumex 1 mg b.i.d. We will continue metolazone to augment diuresis. Monitor renal function and electrolytes closely. 2. Acute on chronic systolic heart failure with ejection fraction of 20%. Continue current diuretic regimen. Continue to monitor renal function and monitor electrolytes. 3. Acute respiratory failure secondary to congestive heart failure exacerbation and questionable bro nchitis. The patient has been clinically improving with diuretic therapy. Continue intermittent neb ulizers. 4. Cardiomyopathy with history of AICD placement. Continue medical management. Follow up with card iology. 5. History of pulmonary hypertension. Continue current treatment plan. 6. Hypertension. Continue current blood pressure regimen. 7. History of reactive airway disease. 8. Obesity. Continue dietary modification. 9. Mineral bone disorder. Monitor calcium and phosphorus levels. Dictated By: AZEEM BERNARD DO NR/NTS Conf#: [id number] DID#: [id number] CC: ROSALIA SPEAR DO; MANDI AUSTIN MD;*EndCC*
[2018-07-02] MEDS: METHYLPREDNISOLONE 125 MG INJ IV SCH ×2 (14:26→20:48)
[2018-07-02] MEDS: FAMOTIDINE 20 MG TAB PO SCH (20:48)
--- NOTE | 2018-07-02 21:37 | CONS ---
Assessment/Plan Cardiology NYHA: III Heart Failure Type: Acute on Chronic Heart Failure Type: Both Assessment/Plan Hospital Course (Demo Recall) Acute decompensated systolic congestive heart failure ? Bronchitis Severe cardiomyopathy History of biventricular pacemaker/ICD Pulmonary hypertension Acute kidney injury -Patient presents with shortness of breath and fatigue progressing over the past month. There is evidence of mild volume overload. Diuretics are being adjusted by nephrology. -Serial cardiac enzymes are negative. -Pt with productive cough with yellow phlegm. Was also given steroids yesterday and increae diuretics, she is improving. D/w hospitalist, plan to continue tx for both etiologies Consultation Date/Type/Reason Admit Date/Time Jul 02, 2018 at 12:35 Initial Consult Date Type of Consult Cardiology Date/Time of Note DATE: 07/02/18 TIME: 21:35 24 HR Interval Summary Free Text/Dictation sob better, received increased diuretics and steroids yesterday Exam/Review of Systems Vital Signs Vitals Vital Signs Date Temp Pulse Resp B/P (MAP) Pulse Ox O2 O2 Flow FiO2 Time Delivery Rate 07/02/18 70 92/62 (72) 20:56 07/02/18 20 99 21 20:04 07/02/18 97.6 20:00 07/01/18 2.0 20:22 07/01/18 Nasal 20:20 Cannula Intake and Output 07/01/18 07/01/18 07/02/18 1515:00 23:00 07:00 IntakeIntake Total 1600 ml 1200 ml OutputOutput Total 1100 ml BalanceBalance 1600 ml 100 ml Exam Constitutional: alert, oriented (nad) Head: normocephalic Respiratory: other (course bs, no wheeze) Cardiovascular: regular rate and rhythm (s1s2) Gastrointestinal: soft, non-tender, bowel sounds Extremities: other (no sig edema) Labs Result Diagram: 07/02/18 0509 07/02/18 0509 Results 24hrs Laboratory Tests Test 07/02/18 05:00 07/02/18 05:09 Urine Color YELLOW Urine Clarity CLEAR Urine pH 6.0 Urine Specific [place] 1.011 Urine Ketones NEGATIVE Urine Nitrite NEGATIVE Urine Bilirubin NEGATIVE Urine Urobilinogen NEGATIVE Urine Leukocyte Esterase NEGATIVE Urine Hemoglobin NEGATIVE Urine Random Creatinine 59.10 Urine Random Sodium 137 H Urine Glucose NEGATIVE Urine Total Protein 8.0 White Blood Count 8.3 # Red Blood Count 4.43 Hemoglobin 12.2 Hematocrit 39.2 Mean Corpuscular Volume 88.5 Mean Corpuscular Hemoglobin 27.5 L Mean Corpuscular Hemoglobin Concent 31.1 L Red Cell Distribution Width 15.0 H Platelet Count 178 Mean Platelet Volume 11.0 H Immature Granulocytes % 0.500 H Neutrophils % 89.6 H Lymphocytes % 4.4 L Monocytes % 5.4 Eosinophils % 0.0 Basophils % 0.1 Nucleated Red Blood Cells % 0.0 Immature Granulocytes # 0.040 H Neutrophils # 7.4 Lymphocytes # 0.4 L Monocytes # 0.5 Eosinophils # 0.0 Basophils # 0.0 Nucleated Red Blood Cells # 0.0 Sodium Level 138 Potassium Level 3.6 Chloride Level 98 Carbon Dioxide Level 31 Anion Gap 9 Blood Urea Nitrogen 24 H Creatinine 1.14 H Est Glomerular Filtrat Rate mL/min 59 L Glucose Level 146 # Calcium Level 9.6 Phosphorus Level 3.9 Magnesium Level 2.2 Medications Medications Current Medications IV Flush (NS 3 ml) 3 ml PER PROTOCOL IV ; Start 06/30/18 at 15:30 Ondansetron HCl (Zofran Inj) 4 mg Q6H PRN IV NAUSEA/VOMITING; Start 06/30/18 at 15:30 Acetaminophen (Tylenol Tab) 650 mg Q6H PRN PO .PAIN 1-3 OR TEMP Last administered on 07/01/18 11:18; Admin Dose 650 MG; Start 06/30/18 at 15:30 Heparin Sodium (Porcine) (Heparin (5000 Units/1ml)) 5,000 unit Q8 SC Last adm inistered on 07/02/18 20:49; Admin Dose 5,000 UNIT; Start 06/30/18 at 22:00 Aspirin (Halfprin) 81 mg DAILY PO Last administered on 07/02/18 09:19; Admin Dose 81 MG; Start 07/01/18 at 09:00 Carvedilol (Coreg) 3.125 mg BID PO Last administered on 07/01/18 20:34; Admin Dose 3.125 MG; Start 06/30/18 at 21:00 Sacubitril/ Valsartan (Entresto 49 Mg-51 Mg) 1 tab BID PO Last administered on 07/02/18at 20:48; Admin Dose 1 TAB; Start 06/30/18 at 21:00 Spironolactone (Aldactone) 25 mg DAILY PO Last administered on 07/02/18 09:19; Admin Dose 25 MG; Start 07/01/18 at 09:00 Bumetanide (Bumex) 1 mg BID DIURETICS IV Last administered on 07/02/18 18:18; Admin Dose 1 MG; Start 06/30/18 at 18:00 Albuterol/ Ipratropium (Duoneb) 3 ml Q6H RESP THERAPY HHN Last administered on 07/02/18 20:04; Admin Dose 3 ML; Start 06/30/18 at 20:00 Guaifenesin/ Dextromethorphan (Robitussin Dm Liquid Cup) 5 ml Q4H PRN PO Cough Last administered on 07/01/18 01:20; Admin Dose 5 ML; Start 06/30/18 at 16:00 Lorazepam (Ativan) 0.5 mg Q6H PRN IV ANXIETY Last administered on 07/01/18 12:47; Admin Dose 0.5 MG; Start 07/01/18 at 01:30 Benzonatate (Tessalon) 100 mg TID PRN PO COUGH Last administered on 07/01/18 02:48; Admin Dose 100 MG; Start 07/01/18 at 03:00 Methylprednisolone Sodium Succinate (Solu-Medrol) 60 mg Q8 IV Last administered on 07/02/18 20:48; Admin Dose 60 MG; Start 07/02/18 at 14:00 Amoxicillin (Amoxicillin) 500 mg Q8 PO ; Start 07/02/18 at 22:00 Famotidine (Pepcid) 20 mg BID PO Last administered on 07/02/18 20:48; Admin Dose 20 MG; Start 07/02/18 at 21:00 Gwyn Paris DO Jul 02, 2018 21:37
[2018-07-02] MEDS: AMOXICILLIN 500 MG CAP PO SCH (22:00)
[2018-07-03] VITALS (8 sets, daily range): BP systolic 82–137; BP diastolic 51–64; PULSE 66–83; RESP 18–20
[2018-07-03] MEDS: ALBUTEROL/IPRATROPIUM (NEB) 3 ML AMP HHN SCH ×3 (01:40→14:00)
[2018-07-03] MEDS: BUMETANIDE 1 MG INJ IV SCH (06:00)
[2018-07-03] MEDS: AMOXICILLIN 500 MG CAP PO SCH ×2 (06:35→14:43)
[2018-07-03] MEDS: METHYLPREDNISOLONE 125 MG INJ IV SCH ×2 (06:44→14:43)
[2018-07-03] MEDS: HEPARIN 5,000 UNIT/1 ML VIAL SC SCH ×2 (07:00→14:51)
[2018-07-03] MEDS: ASPIRIN (EC) 81 MG TAB PO SCH (08:25)
[2018-07-03] MEDS: FAMOTIDINE 20 MG TAB PO SCH (08:25)
[2018-07-03] MEDS: SACUBITRIL/VALSARTAN (49mg-51mg) TABLET PO SCH (08:25)
[2018-07-03] MEDS: SPIRONOLACTONE 25 MG TAB PO SCH (08:25)
--- NOTE | 2018-07-03 08:53 | PN ---
DATE: 07/03/2018 SUBJECTIVE: The patient is clinically improving. Shortness of breath is improving. The patient con tinues to have cough. No other events noted. OBJECTIVE: VITAL SIGNS: Blood pressure 92/62, pulse 71, respirations 20, temperature 97.3. HEENT: Head is normocephalic. NECK: Supple. HEART: Regular rate. LUNGS: Show diminished breath sounds at the base. ABDOMEN: Soft, nontender to palpation without rebound or guarding. EXTREMITIES: Negative for clubbing, cyanosis, no edema. DERMATOLOGIC: No rashes. MUSCULOSKELETAL: No joint effusion. NEUROLOGIC: No change in exam. MEDICATIONS: Reviewed. LABORATORY DATA: Reviewed. The patient has sodium 137, chloride 91, BUN 32, creatinine 1.18, phosph orus 5.0. ASSESSMENT AND PLAN: 1. Nonoliguric acute kidney injury on top of chronic kidney disease with previous baseline creatinin e of 1.4 to 1.7 mg/dL. Etiology of acute kidney injury is secondary to hemodynamics. The patient's renal function has declined in last 24 hours, likely due to diuretic therapy. Plan is to deescalate diuretics. We will hold metolazone. We will change Bumex to 1 mg daily. Monitor renal function, el ectrolytes closely. 2. Alkalosis. Etiology is metabolic secondary to diuretic therapy, and hypochloremia. Plan is to c makaylainmichelle to monitor. We will escalate diuretic therapy at this time. If alkalemia does not improve, we will start the patient on Diamox. 3. Acute on chronic systolic heart failure. The patient is clinically improving. Continue medical management. Continue diuretic regimen, adjust as above. 4. Acute bronchitis. Continue medical management. 5. Cardiomyopathy, history of AICD placement. Continue treatment plan. Follow up with cardiology. 6. Pulmonary hypertension. Continue current treatment plan. 7. Hypertension. Continue current blood pressure regimen. 8. Obesity. Continue dietary modification. 9. Mineral bone disorder, monitor calcium and phosphorus levels. Dictated By: AZEEM BERNARD DO NR/NTS Conf#: [id number] DID#: [id number] CC: MANDI AUSTIN MD; ROSALIA SPEAR DO;*EndCC*
[2018-07-03] MEDS ORDERED: BUMETANIDE 1 MG INJ IV SCH (09:00)
--- NOTE | 2018-07-03 12:42 | PDOCDIS ---
Discharge Instructions CONDITION [id number] Patient Condition: [id number] Stable HOME CARE INSTRUCTIONS: [id number] Diet Instructions: [id number] Low Fat /Cholesterol OTHER ORDERS: Other Orders: 1. Resume home medications. 2. Complete the course of antibiotics and steroids. 3. Resume activities as tolerated. 4. Follow-up with your orthotic technician as scheduled. 5. Please go to the nearest emergency room if you have any chest pain, worsening shortness of breath, persistent fevers, or any other unusual signs/symptoms. GERARDO JOHN NP Jul 03, 2018 12:42
--- NOTE | 2018-07-03 13:33 | DS ---
Date/Time of Note Date/Time of Note DATE: 07/03/18 TIME: 13:32 Discharge Summary Admission/Discharge Info Admit Date/Time Jul 02, 2018 at 12:35 Discharge Date/Time Discharge Diagnosis 1. Acute on chronic congestive heart failure exacerbation, systolic dysfunctio n. 2. Chronic kidney disease. 3. Essential hypertension. 4. Pulmonary hypertension. 5. Cardiomyopathy. Status post AICD placement. 6. Reactive airway disease. Suspect acute bronchitis. 7. Obesity. BMI 33.5 kg/m. Patient Condition: Stable Consults 1. Gwyn Paris DO, Cardiology. 2. Edu Joseph DO, Nephrology. Procedures CXR IMPRESSION: 1. Enlarged cardiac silhouette. Mild bronchial wall thickening compatible with trace edema versus airways inflammation. 2. Linear atelectasis or scarring in the left mid lung. Hx of Present Illness Reason for admission: Dyspnea. This is a 58-year-old female with comorbidities including cardiomyopathy status post AICD placement, essential hypertension, pulmonary hypertension, chronic kidney disease, obesity, and anxiety disorder who came to the emergency room with chief complaint of dyspnea that has been going on for the past few days. The patient verbalized that she has been noncompliant with her dietary restrictions. The patient was complaining of a nonproductive cough. She denied any bilateral lower extremity edema. In the emergency room, the patient's troponins were negative. The patient was noted to have a BUN and creatinine of 23 and 1.21 respectively. The patient's chest x-ray was showing enlarged cardiac silhouette and mild bronchial wall thickening. The patient was given a single dose of IV Lasix along with aspirin and nitro patch in the emergency room. Hospital Course The patient was admitted to inpatient setting. The patient had evidence of acute on chronic congestive heart failure exacerbation, systolic dysfunction. The patient was maintained on Bumex therapy. The patient was also given met olazone along with Bumex for aggressive diuresis. Cardiology consult was obtained. A nephrology consult was also obtained for careful diuresis and for watching the patient's renal function since the patient has underlying chronic kidney disease. The patient continued to have bronchospasms and coughing spells. Therefore, the patient was started on ALEJANDRO. The patient continued to have cough with productive sputum. Therefore, reactive airway disease and acute bronchitis was suspected. The patient was started on IV macrolides. However, the patient was intolerant to macrolides. Therefore, the patient was started on penicillins orally. The patient's sputum culture was negative. The patient was also started on tapering dose of steroids with improvement in the patient's underlying bronchospasms. The patient's chronic problems include hypertension and the patient was maintained on antihypertensives for the same. The patient also has history of pulmonary hypertension. The patient's pulmonary hypertension would be most probably secondary to her underlying left heart disease. The patient also has cardiomyopathy and she has an AICD in place. The patient was maintained on beta-blockers, aldosterone antagonist, and Entresto. The patient is also obese with a BMI of more than 33 kg/m square. The patient was advised on weight reduction. The patient had a stable hospital course. The patient's symptomatology improved gradually. The patient was cleared by consultants to be discharged home. Discharge Instructions 1. Resume home medications. 2. Complete the course of antibiotics and steroids. 3. Resume activities as tolerated. 4. Follow-up with your retail cashier as scheduled. 5. Please go to the nearest emergency room if you have any chest pain, worsening shortness of breath, persistent fevers, or any other unusual signs/symptoms. The patient verbalized understanding of her discharge instructions. At this time I would like to thank all the consultants for seeing the patient and providing clinical recommendations. The patient was seen in collaboration with Dr. Smart. Home Meds Active Scripts [Work Note] No Conflict Check This is to certify that the patient was admitted to [facility] from 06/30/2018 to 07/03/2018. She can return back to work on 07/07/2018 with no restrictions. Prov:GERARDO JOHN FUR COMBER 07/03/18 Reported Medications Sacubitril/Valsartan (Entresto 49 mg-51 mg Tablet) 1 Each Tablet, 1 TAB PO BID, TAB 06/30/18 Spironolactone* (Aldactone*) 25 Mg Tablet, 25 MG PO DAILY, #30 TAB 06/30/18 Lorazepam* (Lorazepam*) 0.5 Mg Tablet, 0.5 MG PO HS PRN for SLEEP, TAB 01/07/18 Aspirin (Low Dose Aspirin) 81 Mg Tablet., 81 MG PO DAILY, #30 TAB 01/07/18 Bumetanide* (Bumetanide*) 1 Mg Tablet, 2 MG PO BID, TAB 01/07/18 Carvedilol* (Carvedilol*) 3.125 Mg Tablet, 3.125 MG PO BID, #60 TAB 01/07/18 Discontinued Scripts Citalopram Hydrobromide* (Celexa*) 20 Mg Tablet, 10 MG PO DAILY for 30 Days, #30 TAB 4 Refills Prov:MAXX LO S. 03/07/18 Acetazolamide* (Acetazolamide*) 250 Mg Tablet, 250 MG PO BID, #60 TAB 2 Refills Prov:RAMICHAEL RINGP S. 03/07/18 Simethicone (Mi-Acid) 80 Mg Tab.chew, 80 MG PO TID PRN for DISTENSION/GAS/BLOAT ING, #30 TAB.CHEW Prov:MAXX LO S. 03/07/18 Follow-up Plan The patient to follow-up with outpatient cardiology. Primary Care Provider Stephan Nuñez Time spent on discharge: > 30 minutes Pending Labs Laboratory Tests Test 07/03/18 05:25 Sodium Level 137 mmol/L (135-144) Potassium Level 3.9 mmol/L (3.5-5.1) Chloride Level 91 mmol/L (97-110) Carbon Dioxide Level 32 mmol/L (21-31) Anion Gap 14 (5-13) Blood Urea Nitrogen 32 mg/dl (7-20) Creatinine 1.18 mg/dl (0.44-1.00) Est Glomerular Filtrat Rate mL/min 57 mL/min (>60) Glucose Level 159 mg/dl (70-220) Calcium Level 9.8 mg/dl (8.4-10.2) Phosphorus Level 5.0 mg/dl (2.5-4.9) Magnesium Level 2.3 mg/dl (1.7-2.5) GERARDO JOHN NP Jul 03, 2018 13:33
[2018-07-03] MEDS ORDERED: Work Note (13:45)
--- NOTE | 2018-07-03 15:48 | CONS ---
Assessment/Plan Cardiology NYHA: III Heart Failure Type: Acute on Chronic Heart Failure Type: Both Assessment/Plan Hospital Course (Demo Recall) Acute decompensated systolic congestive heart failure Bronchitis Severe cardiomyopathy History of biventricular pacemaker/ICD Pulmonary hypertension Acute kidney injury -Patient with significant improvement in symptoms after adjustments of diuretics as well as addition of steroids and antibiotics -Titrate diuretics as per nephrology -Patient to go on quick taper of steroids given would want to prevent any fluid retention -DC planning with outpatient follow-up at [facility] cardiac transplant center Consultation Date/Type/Reason Admit Date/Time Jul 02, 2018 at 12:35 Initial Consult Date Type of Consult Cardiology Date/Time of Note DATE: 07/03/18 TIME: 15:46 24 HR Interval Summary Free Text/Dictation Feeling better, denies shortness of breath, cough is much better, minimal phlegm production Exam/Review of Systems Vital Signs Vitals Vital Signs Date Temp Pulse Resp B/P (MAP) Pulse Ox O2 O2 Flow FiO2 Time Delivery Rate 07/03/18 97.4 66 19 85/53 (64) 95 15:37 07/03/18 21 08:40 07/03/18 Nasal 2.0 00:00 Cannula Intake and Output 07/02/18 07/02/18 07/03/18 1515:00 23:00 07:00 IntakeIntake Total 1420 ml BalanceBalance 1420 ml Exam Constitutional: alert, oriented (No apparent distress) Head: normocephalic Respiratory: other (Coarse breath sounds bilaterally, no wheezing) Cardiovascular: regular rate and rhythm (S1-S2 heard) Gastrointestinal: soft, non-tender, bowel sounds Extremities: edema (Trace) Labs Result Diagram: 07/02/18 0509 07/03/18 0525 Results 24hrs Laboratory Tests Test 07/03/18 05:25 Sodium Level 137 Potassium Level 3.9 Chloride Level 91 L Carbon Dioxide Level 32 H Anion Gap 14 H Blood Urea Nitrogen 32 H Creatinine 1.18 H Est Glomerular Filtrat Rate mL/min 57 L Glucose Level 159 Calcium Level 9.8 Phosphorus Level 5.0 H Magnesium Level 2.3 Medications Medications Current Medications IV Flush (NS 3 ml) 3 ml PER PROTOCOL IV ; Start 06/30/18 at 15:30 Ondansetron HCl (Zofran Inj) 4 mg Q6H PRN IV NAUSEA/VOMITING; Start 06/30/18 at 15:30 Acetaminophen (Tylenol Tab) 650 mg Q6H PRN PO .PAIN 1-3 OR TEMP Last administered on 07/01/18 11:18; Admin Dose 650 MG; Start 06/30/18 at 15:30 Heparin Sodium (Porcine) (Heparin (5000 Units/1ml)) 5,000 unit Q8 SC Last admi nistered on 07/03/18 14:51; Admin Dose 5,000 UNIT; Start 06/30/18 at 22:00 Aspirin (Halfprin) 81 mg DAILY PO Last administered on 07/03/18 08:25; Admin Dose 81 MG; Start 07/01/18 at 09:00 Carvedilol (Coreg) 3.125 mg BID PO Last administered on 07/03/18 08:27; Admin Dose 3.125 MG; Start 06/30/18 at 21:00 Sacubitril/ Valsartan (Entresto 49 Mg-51 Mg) 1 tab BID PO Last administered on 07/03/18 08:25; Admin Dose 1 TAB; Start 06/30/18 at 21:00 Spironolactone (Aldactone) 25 mg DAILY PO Last administered on 07/03/18 08:25; Admin Dose 25 MG; Start 07/01/18 at 09:00 Albuterol/ Ipratropium (Duoneb) 3 ml Q6H RESP THERAPY HHN Last administered on 07/03/18 08:39; Admin Dose 3 ML; Start 06/30/18 at 20:00 Guaifenesin/ Dextromethorphan (Robitussin Dm Liquid Cup) 5 ml Q4H PRN PO Cough Last administered on 07/01/18 01:20; Admin Dose 5 ML; Start 06/30/18 at 16:00 Lorazepam (Ativan) 0.5 mg Q6H PRN IV ANXIETY Last administered on 07/01/18 12:47; Admin Dose 0.5 MG; Start 07/01/18 at 01:30 Benzonatate (Tessalon) 100 mg TID PRN PO COUGH Last administered on 07/01/18 02:48; Admin Dose 100 MG; Start 07/01/18 at 03:00 Methylprednisolone Sodium Succinate (Solu-Medrol) 60 mg Q8 IV Last administered on 07/03/18 14:43; Admin Dose 60 MG; Start 07/02/18 at 14:00 Amoxicillin (Amoxicillin) 500 mg Q8 PO Last administered on 07/03/18 14:43; Admin Dose 500 MG; Start 07/02/18 at 22:00 Famotidine (Pepcid) 20 mg BID PO Last administered on 07/03/18 08:25; Admin Dose 20 MG; Start 07/02/18 at 21:00 Bumetanide (Bumex) 1 mg DAILY IV Last administered on 07/03/18 08:59; Admin Dose 1 MG; Start 07/03/18 at 09:00 Gwyn Paris DO Jul 03, 2018 15:48
== END 2018-07-03 15:30 | disposition home or self-care (01) | DRG 291 ==
LOC: E/R 09:10 → 6WM 12:28 → OBSVTOIN 07-02 12:35
PROVIDERS: ADMIT Internal Medicine; ATTEND Internal Medicine
DX: I13.0 Hypertensive heart and chronic kidney disease with heart failure and stage 1 through stage 4 chronic kidney disease, or unspecified chronic kidney disease (principal); I50.23 Acute on chronic systolic (congestive) heart failure; N17.9 Acute kidney failure, unspecified; Z95.810 Presence of automatic (implantable) cardiac defibrillator; I27.20 Pulmonary hypertension, unspecified; J20.9 Acute bronchitis, unspecified; F41.9 Anxiety disorder, unspecified; E66.9 Obesity, unspecified; Z68.33 Body mass index [BMI] 33.0-33.9, adult; Z91.11 Patient's noncompliance with dietary regimen; J45.909 Unspecified asthma, uncomplicated; N18.3 Chronic kidney disease, stage 3 (moderate)
CPT/HCPCS: 36415; 71045; 80048; 80053; 80061; 81003; 82043; 82550; 82553; 83036; 83735; 83880; 84100; 84155; 84300; 84484; 85025; 87070; 93005; 94640; 94664; 96374; G0378; J0456; J1644; J1940; J2060; J2405; J2930

== ENCOUNTER 2018-07-07 18:47 | Inpatient (IN) | payer MEDICARE, OTHER ==
[~2018-07-07] VITALS: Ht 175.3 cm; Wt 98.1 kg
[~2018-07-07 18:47] MED LIST changes: -ACET250T22 PO; -CITA20TA11 PO; +SACU1TAB7 PO; -SIME80TA16 PO; +SPIR25TA PO; +Work Note
[2018-07-07] MEDS ORDERED: ONDANSETRON 4 MG INJ IV STA (19:33)
--- NOTE | 2018-07-07 19:39 | ERD ---
ER Documentation Chief Complaint Chief Complaint worsening SOB and CP x2 hrs. hx CHF HPI 58-year-old woman here with multiple complaints although she states she came in today for periumbilical abdominal pain. The pain is nonexertional nonradiating, she also complains of sharp, nonexertional nonradiating chest pain but denies shortness of breath. She does have a history of CHF but does not think she has any "fluid in her lungs". Patient denies cough, no fevers or chills, no calf or leg swelling. ROS All systems reviewed and are negative except as per history of present illness. Medications Home Meds Active Scripts [Work Note] No Conflict Check This is to certify that the patient was admitted to [facility] from 06/30/2018 to 07/03/2018. She can return back to work on 07/07/2018 with no restrictions. Prov:GERARDO JOHN [employer] 07/03/18 Reported Medications Sacubitril/Valsartan (Entresto 49 mg-51 mg Tablet) 1 Each Tablet, 1 TAB PO BID, TAB 06/30/18 Spironolactone* (Aldactone*) 25 Mg Tablet, 25 MG PO DAILY, #30 TAB 06/30/18 Lorazepam* (Lorazepam*) 0.5 Mg Tablet, 0.5 MG PO HS PRN for SLEEP, TAB 01/07/18 Aspirin (Low Dose Aspirin) 81 Mg Tablet.dr, 81 MG PO DAILY, #30 TAB 01/07/18 Bumetanide* (Bumetanide*) 1 Mg Tablet, 2 MG PO BID, TAB 01/07/18 Carvedilol* (Carvedilol*) 3.125 Mg Tablet, 3.125 MG PO BID, #60 TAB 01/07/18 Discontinued Scripts Citalopram Hydrobromide* (Celexa*) 20 Mg Tablet, 10 MG PO DAILY for 30 Days, #30 TAB 4 Refills Prov:MAXX LO S. 03/07/18 Acetazolamide* (Acetazolamide*) 250 Mg Tablet, 250 MG PO BID, #60 TAB 2 Refills Prov:MAXX LO S. 03/07/18 Simethicone (Mi-Acid) 80 Mg Tab.chew, 80 MG PO TID PRN for DISTENSION/GAS/BL OATING, #30 TAB.CHEW Prov:MAXX LO. 03/07/18 Allergies Allergies: Coded Allergies: azithromycin (Verified Allergy, Unknown, STOMACH UPSET, VITTING, 07/07/18) PMhx/Soc History of congestive heart failure with LVEF of 20%, essential hypertension, pulmonary hypertension, anxiety, severe cardiomyopathy with biventricular AICD placement, acute kidney injury History of Surgery: No Anesthesia Reaction: No Hx Neurological Disorder: No Hx Respiratory Disorders: No Hx Cardiac Disorders: Yes (CHF) Hx Psychiatric Problems: No Hx Miscellaneous Medical Probl: No Hx Alcohol Use: No Hx Substance Use: No Hx Tobacco Use: No Smoking Status: Never smoker Physical Exam Vitals Vital Signs Date Temp Pulse Resp B/P (MAP) Pulse Ox O2 O2 Flow FiO2 Time Delivery Rate 07/07/18 70 17 115/99 100 2.0 21:50 (104) 07/07/18 70 15 112/56 100 2.0 19:48 (74) 07/07/18 97.1 70 24 100 18:52 Physical Exam GENERAL: Well-developed, well-nourished, anxious, agitated, afebrile NEURO: Alert and oriented 3, cranial nerves II through XII intact bilaterally, pupils equal round reactive to light, no focal deficits or facial asymmetry, sensation intact distally Strength 5/5 in upper and lower extremities bilaterally CARDIAC: Regular rate and rhythm, no murmurs rubs or gallops LUNGS: Clear bilaterally no wheezing crackles or stridor ABDOMEN: Soft nontender, no guarding, no rigidity, no rebound, no psoas sign no obturator sign. Normoactive bowel sounds SKIN: Warm and dry to touch, no abrasions, contusions, or hematomas, no lacerations, no ecchymosis, no target lesions, and without ulcers EXTREMITIES: No clubbing cyanosis or edema, calves are bilaterally symmetrical, no Homans sign, no popliteal cord sign. Distal pulses equal and bilateral PSYCH: Anxious Result Diagram: 07/07/18194007/07/181940 Results 24 hrs Laboratory Tests Test 07/07/18 19:41 White Blood Count 11.2 10^3/ul Red Blood Count 6.39 10^6/ul Hemoglobin 17.4 g/dl Hematocrit 55.4 % Mean Corpuscular Volume 86.7 fl Mean Corpuscular Hemoglobin 27.2 pg Mean Corpuscular Hemoglobin Concent 31.4 g/dl Red Cell Distribution Width 15.9 % Platelet Count 316 10^3/UL Mean Platelet Volume 10.7 fl Immature Granulocytes % 0.400 % Neutrophils % 73.6 % Lymphocytes % 12.0 % Monocytes % 13.3 % Eosinophils % 0.4 % Basophils % 0.3 % Nucleated Red Blood Cells % 0.0 /100WBC Immature Granulocytes # 0.050 10^3/ul Neutrophils # 8.3 10^3/ul Lymphocytes # 1.4 10^3/ul Monocytes # 1.5 10^3/ul Eosinophils # 0.1 10^3/ul Basophils # 0.0 10^3/ul Nucleated Red Blood Cells # 0.0 10^3/ul Prothrombin Time 13.8 Sec Prothrombin Time Ratio 1.1 INR International Normalized Ratio 1.05 Activated Partial Thromboplast Time 24.6 Sec Sodium Level 131 mmol/L Potassium Level 3.3 mmol/L Chloride Level 83 mmol/L Carbon Dioxide Level 31 mmol/L Anion Gap 17 Blood Urea Nitrogen 63 mg/dl Creatinine 1.83 mg/dl Est Glomerular Filtrat Rate mL/min 34 mL/min Glucose Level 169 mg/dl Calcium Level 9.6 mg/dl Total Bilirubin 1.4 mg/dl Direct Bilirubin 0.00 mg/dl Indirect Bilirubin 1.4 mg/dl Aspartate Amino Transf (AST/SGOT) 44 IU/L Alanine Aminotransferase (ALT/SGPT) 52 IU/L Alkaline Phosphatase 115 IU/L Troponin I 0.041 ng/ml B-Type Natriuretic Peptide 3510 PG/ML Total Protein 8.2 g/dl Albumin 4.7 g/dl Globulin 3.50 g/dl Albumin/Globulin Ratio 1.34 Lipase 340 U/L Current Medications Medications Dose Sig/Yash Start Time Status Last (Trade) Ordered Route PRN Stop Time Admin Dose Reason Admin Lorazepam 1 mg ONCE ONCE 07/07/18 DC 07/07/18 (Ativan) IV 20:00 07/07/18 19:44 20:01 Ondansetron 4 mg ONCE STAT 07/07/18 DC 07/07/18 HCl (Zofran IV 19:33 07/07/18 19:44 Inj) 19:35 Enalaprilat 1.25 mg ONCE ONCE 07/07/18 DC (Vasotec Iv) IV 20:00 07/07/18 20:05 Aspirin 162 mg ONCE ONCE 07/07/18 DC 07/07/18 (Aspirin) PO 20:00 07/07/18 20:22 20:01 10 mg ONCE ONCE 07/07/18 DC Metoclopramid IV 22:00 07/07/18 e HCl 22:01 (Reglan) Furosemide 60 mg ONCE ONCE 07/07/18 DC (Lasix) IV 22:00 07/07/18 22:00 Furosemide 20 mg ONCE ONCE 07/07/18 UNV (Lasix) IV 22:00 07/07/18 22:01 Procedures/MDM IV line was established patient was placed on case monitor rhythm strip revealed a wide-complex rhythm at about 80 bpm with upright P and T waves. Patient was afebrile EKG performed, read by me revealed a paced wide-complex rhythm at 70 bpm, left axis deviation, no concerning ST elevations or depressions noted 1 view chest x-ray performed, read by me revealed cardiomegaly and a pacemaker i n the left chest, no acute infiltrates, no pneumothorax CT scan of the abdomen and pelvis was performed,IMPRESSION: No evidence of urolithiasis, obstructive uropathy, diverticulitis or appendicitis. Cardiomegaly. Vascular calcifications. Mild interstitial edema. Question mild eccentric thickening right lateral and posterior wall urinary bladder. Suggest cystoscopic correlation. Osteoarthritis right hip joint. I administered Zofran 4 mg IV for vomiting and lorazepam 1 mg IV for agitation. Later on patient required another dose of Zofran 4 mg IV for continued nausea and vomiting. CBC was unremarkable, electrolytes revealed dehydration acute kidney injury with a BUN/creatinine of 63/1.8, hypokalemia 3.3, liver function tests unremarkable, troponin negative, BNP elevated Patient presented with complaints of chest pain, shortness of breath, and has continued vomiting. Her labs are all abnormal and given her complaints and continued vomiting she will be admitted to telemetry setting for continued medical management. I suspect she is both dehydrated and has some component of mild to moderate pulmonary vascular congestion. Departure Diagnosis: Primary Impression: Acute kidney injury Additional Impressions: CHF (congestive heart failure) Heart failure type: combined systolic and diastolic Heart failure chronicity: acute Qualified Codes: I50.41 - Acute combined systolic (congestive) and diastolic (congestive) heart failure Chest pain Chest pain type: unspecified Qualified Codes: R07.9 - Chest pain, unspecified Intractable vomiting Vomiting type: unspecified Nausea presence: with nausea Qualified Codes: R11.2 - Nausea with vomiting, unspecified Condition: BRYCE Manjarrez MD Jul 07, 2018 19:39
[2018-07-07] MEDS ORDERED: ENALAPRILAT 1.25 MG INJ IV ONE (20:00)
[2018-07-07] MEDS ORDERED: ASPIRIN 81 MG TAB PO ONE (20:00)
[2018-07-07] MEDS ORDERED: LORAZEPAM 2 MG INJ IV ONE (20:00)
[2018-07-07] MEDS ORDERED: FUROSEMIDE 20 MG INJ IV ONE (22:00)
[2018-07-07] MEDS ORDERED: METOCLOPRAMIDE 10 MG INJ IV ONE (22:00)
[2018-07-07] MEDS ORDERED: FUROSEMIDE 40 MG INJ IV ONE (22:00)
[2018-07-07 22:41] VITALS: PULSE 70
[2018-07-07 22:44] VITALS: Ht 175.3 cm; Wt 98.1 kg
[2018-07-07 22:50] VITALS: BP 116/78; PULSE 70; RESP 18
[2018-07-07] MEDS ORDERED: AMOX500T PO (23:11)
[2018-07-07] MEDS ORDERED: MED4DP PO (23:11)
[2018-07-07] MEDS: POTASSIUM CHLORIDE (SR) 20 MEQ TAB PO STA ×2 (23:45→23:59)
[2018-07-07] MEDS ORDERED: morphine 2 MG INJ IV STA (23:48)
--- NOTE | 2018-07-07 23:54 | HP ---
Date/Time of Note Date/Time of Note DATE: 07/07/18 TIME: 23:54 Assessment/Plan VTE Prophylaxis Pharmacological prophylaxis: heparin Lines/Catheters IV Catheter Type (from Nrsg): Saline Lock Assessment/Plan Assessment/Plan 1. Chest pain: Rule out ACS -Telemetry monitoring -Serial troponin -EKG was paced rhythm without ST elevation or depression -Cardiology consult -Recent 2D echo with EF of 20% -Aspirin, statin, beta-luis e. As needed nitro 2. Abdominal pain: Unknown etiology. CT abdomen/pelvis shows mild thickening of the urinary bladder. Will place a urology consult for cystoscopy 3. Mild urinary thickening, as noted on a CT. See #2 4. Cardiomyopathy with systolic dysfunction, EF of 20%: Status post AICD. Continue cardiac meds including Bumex 5. Hypertension: BP is in acceptable range 6. CKD: Monitor closely Result Diagram: 07/07/18194007/07/181940 Results 24hrs Laboratory Tests Test 07/07/18 19:41 White Blood Count 11.2 #H Red Blood Count 6.39 #H Hemoglobin 17.4 #H Hematocrit 55.4 #H Mean Corpuscular Volume 86.7 Mean Corpuscular Hemoglobin 27.2 L Mean Corpuscular Hemoglobin Concent 31.4 L Red Cell Distribution Width 15.9 H Platelet Count 316 # Mean Platelet Volume 10.7 H Immature Granulocytes % 0.400 Neutrophils % 73.6 Lymphocytes % 12.0 L Monocytes % 13.3 H Eosinophils % 0.4 Basophils % 0.3 Nucleated Red Blood Cells % 0.0 Immature Granulocytes # 0.050 H Neutrophils # 8.3 H Lymphocytes # 1.4 Monocytes # 1.5 H Eosinophils # 0.1 Basophils # 0.0 Nucleated Red Blood Cells # 0.0 Prothrombin Time 13.8 Prothrombin Time Ratio 1.1 INR International Normalized Ratio 1.05 Activated Partial Thromboplast Time 24.6 Sodium Level 131 L Potassium Level 3.3 L Chloride Level 83 L Carbon Dioxide Level 31 Anion Gap 17 H Blood Urea Nitrogen 63 H Creatinine 1.83 H Est Glomerular Filtrat Rate mL/min 34 L Glucose Level 169 Calcium Level 9.6 Total Bilirubin 1.4 H Direct Bilirubin 0.00 Indirect Bilirubin 1.4 H Aspartate Amino Transf (AST/SGOT) 44 Alanine Aminotransferase (ALT/SGPT) 52 Alkaline Phosphatase 115 Troponin I 0.041 B-Type Natriuretic Peptide 3510 H Total Protein 8.2 H Albumin 4.7 Globulin 3.50 H Albumin/Globulin Ratio 1.34 Lipase 340 H HPI/ROS Admit Date/Time Admit Date/Time Jul 07, 2018 at 20:09 Hx of Present Illness This is a 58-year-old female with a history of hypertension, CKD, cardiomyopathy with systolic dysfunction with EF of 20%, AICD who presents the ER complaining of chest pain and abdominal pain. Chest pain is mainly localized in the mid chest and also slightly left-sided. Abdominal pain is mainly periumbilical. Reported nausea but no vomiting. Denied fever or chills. She was just discha rged from here 5 days ago after admitted for CHF exacerbation. When she presented to ER, vitals were stable. First troponin is negative and EKG shows paced rhythm without ST elevation. Chest x-ray shows bilateral perihilar and lower lobe hazy opacifications, right worse than left, suggestive of early interstitial pulmonary edema or less likely pneumonia and moderate cardiomegaly with central pulmonary vascular congestion. PMH/Family/Social Past Medical History Medical History: other (see hpi) Coded Allergies: azithromycin (Verified Allergy, Unknown, STOMACH UPSET, VITTING, 07/07/18) Past Surgical History Past Surgical Hx: other (see hpi) Family History Significant Family History: no pertinent family hx Social History Alcohol Use: other Smoking Status: Never smoker Drug Use: none Exam/Review of Systems Vital Signs Vitals Vital Signs Date Temp Pulse Resp B/P (MAP) Pulse Ox O2 O2 Flow FiO2 Time Delivery Rate 07/07/18 97.7 70 18 116/78 98 Nasal 2.0 22:50 (91) Cannula Exam Constitutional: other (no acute distress) Head: normocephalic Neck: supple Respiratory: normal air movement Cardiovascular: regular rate and rhythm Gastrointestinal: soft PIO CRAMER MD Jul 07, 2018 23:54
[2018-07-08] VITALS (11 sets, daily range): BP systolic 98–142; BP diastolic 61–70; PULSE 67–88; RESP 18–19
[2018-07-08] MEDS ORDERED: LORAZEPAM 0.5 MG TAB PO PRN
[2018-07-08] MEDS ORDERED: NACL 0.9% 3 ML SYG IV SCH
[2018-07-08] MEDS ORDERED: ACETAMINOPHEN 325 MG TAB PO PRN
[2018-07-08] MEDS ORDERED: ALBUTEROL/IPRATROPIUM (NEB) 3 ML AMP HHN PRN
[2018-07-08] MEDS: ONDANSETRON 4 MG INJ IV PRN ×2 (00:30→13:39)
[2018-07-08] MEDS: POTASSIUM CHLORIDE 100 ML IVPB SCH ×2 (04:17→06:30)
[2018-07-08] MEDS ORDERED: POTASSIUM CHLORIDE (SR) 20 MEQ TAB PO STA ×2 (06:54→13:00)
[2018-07-08] MEDS ORDERED: BUMETANIDE 1 MG TAB PO SCH (09:00)
[2018-07-08] MEDS: ASPIRIN (EC) 81 MG TAB PO SCH (10:19)
[2018-07-08] MEDS: HYDROCODONE/APAP (5/325) TAB PO PRN (10:20)
[2018-07-08] MEDS: SPIRONOLACTONE 25 MG TAB PO SCH (10:20)
[2018-07-08] MEDS: HEPARIN 5,000 UNIT/1 ML VIAL SC SCH ×2 (11:03→21:19)
--- NOTE | 2018-07-08 13:07 | PN ---
Date/Time of Note Date/Time of Note DATE: 07/08/18 TIME: 12:51 Assessment/Plan VTE Prophylaxis Pharmacological prophylaxis: heparin Lines/Catheters IV Catheter Type (from Nrs): Saline Lock Urinary Cath still in place: No Assessment/Plan Assessment/Plan 1. Chest pain, atypical. negative troponin, ?LHC before, follow up with cardi ology 2. Abdominal pain: Unknown etiology. CT abdomen/pelvis shows mild thickening of the urinary bladder. Will place a urology consult for cystoscopy 3. CHF, systolic, chronic, compensated 4. Cardiomyopathy with systolic dysfunction, EF of 20%: Status post AICD. Continue cardiac meds including Bumex 5. Hypertension: BP is in acceptable range 6. CKD: Monitor closely 7. DVT prophylaxis: heparin Result Diagram: 07/08/18 0503 07/08/18 0503 Results 24hrs Laboratory Tests Test 07/07/18 19:41 07/08/18 01:48 07/08/18 05:03 07/08/18 07:05 White Blood Count 11.2 #H 12.2 H Red Blood Count 6.39 #H 6.13 H Hemoglobin 17.4 #H 16.8 H Hematocrit 55.4 #H 53.0 H Mean Corpuscular Volume 86.7 86.5 Mean Corpuscular 27.2 L 27.4 L Hemoglobin Mean Corpuscular 31.4 L 31.7 L Hemoglobin Concent Red Cell Distribution 15.9 H 15.5 H Width Platelet Count 316 # 307 Mean Platelet Volume 10.7 H 10.8 H Immature Granulocytes % 0.400 0.300 Neutrophils % 73.6 82.2 H Lymphocytes % 12.0 L 5.5 L Monocytes % 13.3 H 11.8 H Eosinophils % 0.4 0.0 Basophils % 0.3 0.2 Nucleated Red Blood 0.0 0.0 Cells % Immature Granulocytes # 0.050 H 0.040 H Neutrophils # 8.3 H 10.1 H Lymphocytes # 1.4 0.7 L Monocytes # 1.5 H 1.4 H Eosinophils # 0.1 0.0 Basophils # 0.0 0.0 Nucleated Red Blood 0.0 0.0 Cells # Prothrombin Time 13.8 Prothrombin Time Ratio 1.1 INR International 1.05 Normalized Ratio Activated 24.6 Partial Thromboplast Time Sodium Level 131 L 134 L Potassium Level 3.3 L 3.4 L Chloride Level 83 L 82 L Carbon Dioxide Level 31 38 H Anion Gap 17 H 14 H Blood Urea Nitrogen 63 H 63 H Creatinine 1.83 H 1.52 H Est Glomerular Filtrat 34 L 43 L Rate mL/min Glucose Level 169 155 Calcium Level 9.6 9.6 Total Bilirubin 1.4 H 1.7 H Direct Bilirubin 0.00 0.00 Indirect Bilirubin 1.4 H 1.7 H Aspartate Amino 44 46 Transf (AST/SGOT) Alanine 52 59 Aminotransferase (ALT/SG PT) Alkaline Phosphatase 115 108 Troponin I 0.041 0.035 0.032 B-Type Natriuretic 3510 H Peptide Total Protein 8.2 H 7.7 Albumin 4.7 4.4 Globulin 3.50 H 3.30 H Albumin/Globulin Ratio 1.34 1.33 Lipase 340 H Creatine Kinase 29 27 Creatine Kinase Index 1.8 2.1 Creatinine Kinase MB 0.52 0.57 (Mass) Magnesium Level 2.7 H Subjective 24 Hr Interval Summary Free Text/Dictation mild frontal chest discomfort nausea Exam/Review of Systems Exam Vitals Vital Signs Date Temp Pulse Resp B/P (MAP) Pulse Ox O2 O2 Flow FiO2 Time Delivery Rate 07/08/18 98.1 67 19 131/65 100 11:19 (87) 07/07/18 Nasal 2.0 23:00 Cannula Intake and Output 07/07/18 07/07/18 07/08/18 1414:59 22:59 06:59 IntakeIntake Total 400 ml BalanceBalance 400 ml Constitutional: alert, oriented, well developed Head: normocephalic, atraumatic Eyes: nl conjunctiva, EOMI, nl lids, PERRL ENMT: nl external ears & nose, nl lips & teeth, nl nasal mucosa & septum Neck: supple, non-tender Respiratory: clear to auscultation, normal air movement; No congested cough, No crackles/rales, No diminished breath sounds, No intercostal retraction, No labored breathing, No respirations, No tactile fremitus, No wheezing, No other Cardiovascular: regular rate and rhythm, nl pulses; No bruits, No diastolic murmur, No edema, No gallop, No irregular rhythm, No jugular venous distention (JVD), No murmurs/extra sounds, No rub, No systolic murmur, No S3, No S4, No other Gastrointestinal: soft, nl liver, spleen Musculoskeletal: nl extremities to inspection Extremities: normal pulses; No calf tenderness, No cyanosis, No clubbing, No edema, No pitting pedal edema, No palpable cord, No tenderness, No other Neurological: INFORMATION SYSTEMS ADMINISTRATOR II-XII intact, nl mental status, nl speech, nl strength Results Results 24hrs Laboratory Tests Test 07/07/18 19:41 07/08/18 01:48 07/08/18 05:03 07/08/18 07:05 White Blood Count 11.2 #H 12.2 H Red Blood Count 6.39 #H 6.13 H Hemoglobin 17.4 #H 16.8 H Hematocrit 55.4 #H 53.0 H Mean Corpuscular Volume 86.7 86.5 Mean Corpuscular 27.2 L 27.4 L Hemoglobin Mean Corpuscular 31.4 L 31.7 L Hemoglobin Concent Red Cell Distribution 15.9 H 15.5 H Width Platelet Count 316 # 307 Mean Platelet Volume 10.7 H 10.8 H Immature Granulocytes % 0.400 0.300 Neutrophils % 73.6 82.2 H Lymphocytes % 12.0 L 5.5 L Monocytes % 13.3 H 11.8 H Eosinophils % 0.4 0.0 Basophils % 0.3 0.2 Nucleated Red Blood 0.0 0.0 Cells % Immature Granulocytes # 0.050 H 0.040 H Neutrophils # 8.3 H 10.1 H Lymphocytes # 1.4 0.7 L Monocytes # 1.5 H 1.4 H Eosinophils # 0.1 0.0 Basophils # 0.0 0.0 Nucleated Red Blood 0.0 0.0 Cells # Prothrombin Time 13.8 Prothrombin Time Ratio 1.1 INR International 1.05 Normalized Ratio Activated 24.6 Partial Thromboplast Time Sodium Level 131 L 134 L Potassium Level 3.3 L 3.4 L Chloride Level 83 L 82 L Carbon Dioxide Level 31 38 H Anion Gap 17 H 14 H Blood Urea Nitrogen 63 H 63 H Creatinine 1.83 H 1.52 H Est Glomerular Filtrat 34 L 43 L Rate mL/min Glucose Level 169 155 Calcium Level 9.6 9.6 Total Bilirubin 1.4 H 1.7 H Direct Bilirubin 0.00 0.00 Indirect Bilirubin 1.4 H 1.7 H Aspartate Amino 44 46 Transf (AST/SGOT) Alanine 52 59 Aminotransferase (ALT/SG PT) Alkaline Phosphatase 115 108 Troponin I 0.041 0.035 0.032 B-Type Natriuretic 3510 H Peptide Total Protein 8.2 H 7.7 Albumin 4.7 4.4 Globulin 3.50 H 3.30 H Albumin/Globulin Ratio 1.34 1.33 Lipase 340 H Creatine Kinase 29 27 Creatine Kinase Index 1.8 2.1 Creatinine Kinase MB 0.52 0.57 (Mass) Magnesium Level 2.7 H Medications Medication Current Medications IV Flush (NS 3 ml) 3 ml PER PROTOCOL IV ; Start 07/08/18 at 00:00 Ondansetron HCl (Zofran Inj) 4 mg Q6H PRN IV NAUSEA/VOMITING Last administered on 07/08/18 00:30; Admin Dose 4 MG; Start 07/08/18 at 00:00 Acetaminophen (Tylenol Tab) 650 mg Q6H PRN PO .PAIN 1-3 OR TEMP; Start 07/08/18 at 00:00 Acetaminophen/ Hydrocodone Bitart ([place] (5/325)) 1 tab Q6H PRN PO .PAIN 4-6 Last administered on 07/08/18 10:20; Admin Dose 1 TAB; Start 07/08/18 at 00:00 Acetaminophen/ Hydrocodone Bitart ([place] (5/325)) 2 tab Q6H PRN PO .PAIN 7-10; Start 07/08/18 at 00:00 Heparin Sodium (Porcine) (Heparin (5000 Units/1ml)) 5,000 unit Q12 SC Last administered on 07/08/18 11:03; Admin Dose 5,000 UNIT; Start 07/08/18 at 09:00 Albuterol/ Ipratropium (Duoneb) 3 ml Q2H RESP THERAPY PRN HHN SHORTNESS OF BREATH; Start 07/08/18 at 00:00 Aspirin (Halfprin) 81 mg DAILY PO Last administered on 07/08/18 10:19; Admin Dose 81 MG; Start 07/08/18 at 09:00 Bumetanide (Bumex) 2 mg BID PO Last administered on 07/08/18 10:19; Admin Dose 2 MG; Start 07/08/18 at 09:00 Carvedilol (Coreg) 3.125 mg BID PO Last administered on 07/08/18 10:20; Admin Dose 3.125 MG; Start 07/08/18 at 09:00 Lorazepam (Ativan) 0.5 mg BID PRN PO ANXIETY Last administered on 07/08/18at 10:19; Admin Dose 0.5 MG; Start 07/08/18 at 00:00 Spironolactone (Aldactone) 12.5 mg DAILY PO Last administered on 07/08/18at 10:20; Admin Dose 12.5 MG; Start 07/08/18 at 09:00 Atorvastatin Calcium (Lipitor) 20 mg HS PO ; Start 07/08/18 at 21:00 Miscellaneous Information Patients own medicat... BID@10,16 XX ; Start 07/08/18 at 10:00 MARY DAMON MD Jul 08, 2018 13:02
[2018-07-08] MEDS: LORAZEPAM 1 MG TAB PO PRN ×2 (15:29→22:30)
--- NOTE | 2018-07-08 17:31 | CONS ---
Assessment/Plan Cardiology NYHA: III Heart Failure Type: Chronic Heart Failure Type: Both Assessment/Plan Hospital Course (Demo Recall) Abdominal pain Bladder abnormalities on CT scan Elevated lipase Chronic systolic congestive heart failure Severe nonischemic cardia myopathy Pulmonary hypertension Acute kidney injury History of biventricular pacemaker/ICD -Patient presents with abdominal pain, nausea and chills -She denies any chest pain or shortness of breath -Lipase elevated on laboratory studies, CT scan with thickening of the bladder. Patient is pending GI and urology evaluation. I would order UA and culture in the interim -Given patient with poor p.o. intake, I would decrease her Bumex to 1 mg Consultation Date/Type/Reason Admit Date/Time Jul 07, 2018 at 20:09 Type of Consult Cardiology Reason for Consultation Cardiology evaluation Date/Time of Note DATE: 07/08/18 TIME: 17:09 Hx of Present Illness This is a 58-year-old female well-known to me from previous admissions with history of nonischemic cardia myopathy status post biventricular pacemaker/ICD, who presents with severe abdominal pain. Patient was discharged in the hospital recently for CHF exacerbation and bronchitis. Patient was treated with antibiotics, steroids and diuretics. The next day, patient with symptoms of severe abdominal pain which has since been progressing. Pain is sharp in nature and crampy. Pain begins in the lower abdomen and radiates up towards the upper portions of the abdomen. She does complain of chills but denies fever. She complains of shortness of breath during these episodes of severe pain. She denies any chest pain. She does feel severely nauseous and she is vomited multiple times. Denies any diarrhea. 12 point review of systems was performed with all pertinent positives and negatives mentioned above and all else is negative Past Medical History Pulmonary hypertension Medical History: congestive heart failure Home Meds Active Scripts [Work Note] No Conflict Check This is to certify that the patient was admitted to [facility] from 06/30/2018 to 07/03/2018. She can return back to work on 07/07/2018 with no restrictions. Prov:GERARDO JOHN [employer] 07/03/18 Reported Medications Methylprednisolone* (Medrol* DOSE PACK) 4 Mg/Dose-Pack Tab.ds.pk, 4 MG PO . DIRECTED, PACKET Currently on last tablet of third day 07/07/18 Amoxicillin Trihydrate (Amoxicillin) 500 Mg Tablet, 500 MG PO Q8, #30 TAB 07/07/18 Sacubitril/Valsartan (Entresto 49 mg-51 mg Tablet) 1 Each Tablet, 1 TAB PO BID, TAB 06/30/18 Spironolactone* (Aldactone*) 25 Mg Tablet, 12.5 MG PO DAILY, #30 TAB 06/30/18 Lorazepam* (Lorazepam*) 0.5 Mg Tablet, 0.5 MG PO BID PRN for ANXIETY, TAB 01/07/18 Aspirin (Low Dose Aspirin) 81 Mg Tablet.dr, 81 MG PO DAILY, #30 TAB 01/07/18 Bumetanide* (Bumetanide*) 1 Mg Tablet, 2 MG PO BID, TAB 01/07/18 Carvedilol* (Carvedilol*) 3.125 Mg Tablet, 3.125 MG PO BID, #60 TAB 01/07/18 Medications Current Medications IV Flush (NS 3 ml) 3 ml PER PROTOCOL IV ; Start 07/08/18 at 00:00 Ondansetron HCl (Zofran Inj) 4 mg Q6H PRN IV NAUSEA/VOMITING Last administered on 07/08/18at 13:39; Admin Dose 4 MG; Start 07/08/18 at 00:00 Acetaminophen (Tylenol Tab) 650 mg Q6H PRN PO .PAIN 1-3 OR TEMP; Start 07/08/18 at 00:00 Acetaminophen/ Hydrocodone Bitart (Clark (5/325)) 1 tab Q6H PRN PO .PAIN 4-6 Last administered on 07/08/18at 10:20; Admin Dose 1 TAB; Start 07/08/18 at 00:00 Acetaminophen/ Hydrocodone Bitart (Clark (5/325)) 2 tab Q6H PRN PO .PAIN 7-10; Start 07/08/18 at 00:00 Heparin Sodium (Porcine) (Heparin (5000 Units/1ml)) 5,000 unit Q12 SC Last administered on 07/08/18at 11:03; Admin Dose 5,000 UNIT; Start 07/08/18 at 09:00 Albuterol/ Ipratropium (Duoneb) 3 ml Q2H RESP THERAPY PRN HHN SHORTNESS OF BREATH; Start 07/08/18 at 00:00 Aspirin (Halfprin) 81 mg DAILY PO Last administered on 07/08/18at 10:19; Admin Dose 81 MG; Start 07/08/18 at 09:00 Bumetanide (Bumex) 2 mg BID PO Last administered on 07/08/18 10:19; Admin Dose 2 MG; Start 07/08/18 at 09:00 Carvedilol (Coreg) 3.125 mg BID PO Last administered on 07/08/18 10:20; Admin Dose 3.125 MG; Start 07/08/18 at 09:00 Spironolactone (Aldactone) 12.5 mg DAILY PO Last administered on 07/08/18 10:20; Admin Dose 12.5 MG; Start 07/08/18 at 09:00 Atorvastatin Calcium (Lipitor) 20 mg HS PO ; Start 07/08/18 at 21:00 Miscellaneous Information Patients own medicat... BID@10,16 XX ; Start 07/08/18 at 10:00 Lorazepam (Ativan) 1 mg BID PRN PO ANXIETY Last administered on 07/08/18at 15:29; Admin Dose 1 MG; Start 07/08/18 at 15:00 Allergies: Coded Allergies: azithromycin (Verified Allergy, Unknown, STOMACH UPSET, VITTING, 07/07/18) Past Surgical History Past Surgical Hx: cholecystectomy, other (Biventricular pacemaker ICD) Family History Significant Family History: no pertinent family hx Social History Alcohol Use: none Smoking Status: Former smoker Exam/Review of Systems Vital Signs Vitals Vital Signs Date Temp Pulse Resp B/P (MAP) Pulse Ox O2 O2 Flow FiO2 Time Delivery Rate 07/08/18 81 16:01 07/08/18 98.1 18 142/70 100 15:09 (94) 07/07/18 Nasal 2.0 23:00 Cannula Intake and Output 07/07/18 07/07/18 07/08/18 1515:00 23:00 07:00 IntakeIntake Total 400 ml BalanceBalance 400 ml Exam Constitutional: alert, oriented (Appears uncomfortable and moving in the bed) Head: normocephalic Respiratory: other (Coarse breath sounds bilaterally, no wheezing) Cardiovascular: regular rate and rhythm (S1-S2 heard) Gastrointestinal: soft, tender (In the mid lower quadrants and suprapubic region) Extremities: other (No significant edema) Labs Result Diagram: 07/08/18 0503 07/08/18 0503 Results 24hrs Laboratory Tests Test 07/07/18 19:41 07/08/18 01:48 07/08/18 05:03 07/08/18 07:05 White Blood Count 11.2 #H 12.2 H Red Blood Count 6.39 #H 6.13 H Hemoglobin 17.4 #H 16.8 H Hematocrit 55.4 #H 53.0 H Mean Corpuscular Volume 86.7 86.5 Mean Corpuscular 27.2 L 27.4 L Hemoglobin Mean Corpuscular 31.4 L 31.7 L Hemoglobin Concent Red Cell Distribution 15.9 H 15.5 H Width Platelet Count 316 # 307 Mean Platelet Volume 10.7 H 10.8 H Immature Granulocytes % 0.400 0.300 Neutrophils % 73.6 82.2 H Lymphocytes % 12.0 L 5.5 L Monocytes % 13.3 H 11.8 H Eosinophils % 0.4 0.0 Basophils % 0.3 0.2 Nucleated Red Blood 0.0 0.0 Cells % Immature Granulocytes # 0.050 H 0.040 H Neutrophils # 8.3 H 10.1 H Lymphocytes # 1.4 0.7 L Monocytes # 1.5 H 1.4 H Eosinophils # 0.1 0.0 Basophils # 0.0 0.0 Nucleated Red Blood 0.0 0.0 Cells # Prothrombin Time 13.8 Prothrombin Time Ratio 1.1 INR International 1.05 Normalized Ratio Activated 24.6 Partial Thromboplast Time Sodium Level 131 L 134 L Potassium Level 3.3 L 3.4 L Chloride Level 83 L 82 L Carbon Dioxide Level 31 38 H Anion Gap 17 H 14 H Blood Urea Nitrogen 63 H 63 H Creatinine 1.83 H 1.52 H Est Glomerular Filtrat 34 L 43 L Rate mL/min Glucose Level 169 155 Calcium Level 9.6 9.6 Total Bilirubin 1.4 H 1.7 H Direct Bilirubin 0.00 0.00 Indirect Bilirubin 1.4 H 1.7 H Aspartate Amino 44 46 Transf (AST/SGOT) Alanine 52 59 Aminotransferase (ALT/SG PT) Alkaline Phosphatase 115 108 Troponin I 0.041 0.035 0.032 B-Type Natriuretic 3510 H Peptide Total Protein 8.2 H 7.7 Albumin 4.7 4.4 Globulin 3.50 H 3.30 H Albumin/Globulin Ratio 1.34 1.33 Lipase 340 H Creatine Kinase 29 27 Creatine Kinase Index 1.8 2.1 Creatinine Kinase MB 0.52 0.57 (Mass) Magnesium Level 2.7 H Medications Medications Current Medications IV Flush (NS 3 ml) 3 ml PER PROTOCOL IV ; Start 07/08/18 at 00:00 Ondansetron HCl (Zofran Inj) 4 mg Q6H PRN IV NAUSEA/VOMITING Last administered on 07/08/18 13:39; Admin Dose 4 MG; Start 07/08/18 at 00:00 Acetaminophen (Tylenol Tab) 650 mg Q6H PRN PO .PAIN 1-3 OR TEMP; Start 07/08/18 at 00:00 Acetaminophen/ Hydrocodone Bitart (Clark (5/325)) 1 tab Q6H PRN PO .PAIN 4-6 Last administered on 07/08/18 10:20; Admin Dose 1 TAB; Start 07/08/18 at 00:00 Acetaminophen/ Hydrocodone Bitart (Clark (5/325)) 2 tab Q6H PRN PO .PAIN 7-10; Start 07/08/18 at 00:00 Heparin Sodium (Porcine) (Heparin (5000 Units/1ml)) 5,000 unit Q12 SC Last administered on 07/08/18 11:03; Admin Dose 5,000 UNIT; Start 07/08/18 at 09:00 Albuterol/ Ipratropium (Duoneb) 3 ml Q2H RESP THERAPY PRN HHN SHORTNESS OF BREATH; Start 07/08/18 at 00:00 Aspirin (Halfprin) 81 mg DAILY PO Last administered on 07/08/18 10:19; Admin Dose 81 MG; Start 07/08/18 at 09:00 Bumetanide (Bumex) 2 mg BID PO Last administered on 07/08/18 10:19; Admin Dose 2 MG; Start 07/08/18 at 09:00 Carvedilol (Coreg) 3.125 mg BID PO Last administered on 07/08/18 10:20; Admin Dose 3.125 MG; Start 07/08/18 at 09:00 Spironolactone (Aldactone) 12.5 mg DAILY PO Last administered on 07/08/18 10:20; Admin Dose 12.5 MG; Start 07/08/18 at 09:00 Atorvastatin Calcium (Lipitor) 20 mg HS PO ; Start 07/08/18 at 21:00 Miscellaneous Information Patients own medicat... BID@10,16 XX ; Start 07/08/18 at 10:00 Lorazepam (Ativan) 1 mg BID PRN PO ANXIETY Last administered on 07/08/18at 15:29; Admin Dose 1 MG; Start 07/08/18 at 15:00 Gwyn Paris DO Jul 08, 2018 17:20
[2018-07-08] MEDS: BUMETANIDE 1 MG TAB PO SCH (17:46)
[2018-07-08] MEDS ORDERED: ACETAZOLAMIDE 500 MG INJ IV ONE (19:30)
--- NOTE | 2018-07-08 19:30 | CONS ---
DATE OF ADMISSION: 07/07/2018 DATE OF CONSULTATION: 07/08/2018 TYPE OF CONSULTATION: Nephrology. PHYSICIAN REQUESTING CONSULT: Gwyn Paris DO REASON FOR CONSULTATION: Acute kidney injury, CKD, electrolyte abnormality. HISTORY OF PRESENT ILLNESS: This is a 58-year-old female well known to me with a past medical histor y of cardiomyopathy with previous ejection fraction of 20%, history of biventricular pacemaker placem ent, history of AICD placement, history of mitral and aortic valve disease, history of pulmonary hype rtension, history of CKD secondary to cardiorenal syndrome type 2 with a baseline creatinine of 1.3 m g/dL, who presents to [facility] with shortness of breath and abdominal pain. The patient was recently admitted to [facility] approximately 1 week ago and was subseq uently discharged after being treated for acute systolic heart failure. The patient now presents wit h complaints of abdominal pain and shortness of breath. The patient states that her abdominal pain i s periumbilical. The patient also describes having had minimal urinary output. Upon arrival to the emergency room, the patient's EKG showed paced rhythm and the patient's initial troponin was negative . The patient has chest x-ray which showed bilateral opacification, right worse than left, suggestin g early pulmonary edema and vascular congestion. The patient also had a CT scan of abdomen and pelvi s which showed thickening of the right lateral posterior wall urinary bladder, but no evidence of obs tructive uropathy, diverticulitis or appendicitis. The patient was subsequently placed on diuretic t herapy and admitted to telemetry for evaluation. In terms of patient's renal history, the patient has underlying chronic kidney disease secondary to c ardiorenal syndrome. On admission, the patient had creatinine 1.83 mg/Dl, which is improved to 1.52 mg/dL. The patient denies any hemoptysis, hematemesis or hematochezia. PAST MEDICAL HISTORY: As stated above, history of CKD, history of cardiorenal syndrome, history of c ardiomyopathy. PAST SURGICAL HISTORY: Status post cholecystectomy, status post AICD placement, status post biventri cular placement. FAMILY HISTORY: No family history of kidney disease. SOCIAL HISTORY: Does not drink, smoke or do drugs. MEDICATIONS: Have been reviewed. REVIEW OF SYSTEMS: A 14-point review of systems has been conducted. Pertinent positives stated in H PI, otherwise negative. PHYSICAL EXAMINATION: VITAL SIGNS: Blood pressure is 142/70, respiration 18, pulse 68, temperature 98.1. HEENT: Head is normocephalic. NECK: Supple. The patient has positive JVD. HEART: Tachycardic. LUNGS: Show diminished breath sounds at base. Positive rhonchi. ABDOMEN: Soft, nontender to palpation. No rebound or guarding. EXTREMITIES: Negative for clubbing, cyanosis. No edema. DERMATOLOGIC: No rashes. MUSCULOSKELETAL: No joint effusions. NEUROLOGIC: No focal deficits. LABORATORY DATA: Show white count 12.2, hemoglobin 16.8, platelet count is 307. Sodium is 134, pota ssium 3.4, chloride 82, bicarbonate is 38, BUN 63, creatinine 1.52, magnesium 2.7. The patient's uri nalysis is pending. IMAGING STUDIES: Have been reviewed. ASSESSMENT AND PLAN: This is a 58-year-old female who presents with: 1. Nonoliguric acute kidney injury on top of chronic kidney disease with previous baseline creatinin e of 1.3 mg/dL. Etiology of current acute kidney injury is multifactorial secondary to cardiorenal s yndrome, diuretics. Plan at this point check a UA with microanalysis, check urine electrolytes. I a gree with escalating diuretic therapy. We would consider holding Bumex and giving Diamox as the sam ent has noted alkalemia. We would otherwise continue current treatment plan, supportive care, renall y dose all meds. We will continue to monitor closely. 2. Metabolic alkalemia, likely secondary to diuretic therapy. We will start the patient on Diamox. Hold Bumex at this time and monitor closely. 3. Hypokalemia. Replete potassium chloride. 4. Hyponatremia secondary to acute kidney injury causing decreased free water urinary excretion. Mo nitor sodium levels closely. Limit free water intake. 5. Polycythemia likely due to intravascular congestion, possible underlying heart failure. Monitor closely. 6. Mineral bone disorder. Monitor calcium and phosphatase levels. 7. Hypomagnesemia secondary to acute kidney injury. Continue to monitor. 8. Abdominal pain. Etiology is concerning for possible cardiac ischemia. The patient's CT scan was reviewed. Continue to monitor. Follow up with GI. 9. Heart failure, chronic, possible acute decompensation. We will continue medical management. We will follow up with cardiology for recommendations. May consider inotropic support if necessary. 10. History of arrhythmia, status post pacemaker and ICD placement. 11. History of pulmonary hypertension. Continue to monitor. 12. Acute respiratory failure secondary to congestive heart failure exacerbation. Continue medical management. Thank you, Dr. Paris, for this interesting consult. It will be a pleasure to follow the patient wit h cynthia throughout the hospital course. Dictated By: AZEEM BERNARD DO NR/NTS Conf#: [id number] DID#: [id number] CC: EVERETT ALCANTARA MD; PIO CRAMER MD; MARY DAMON MD;*EndCC*
[2018-07-08] MEDS: ATORVASTATIN 20 MG TAB PO SCH (21:12)
--- NOTE | 2018-07-08 21:30 | CONS ---
Assessment/Plan Assessment/Plan Hospital Course (Demo Recall) 58-year-old female has a history of hypertension, chronic kidney disease, cardiomyopathy with systolic dysfunction with ejection fraction of 20%. She has AICD. She presented to the ER complaining of chest pain and abdominal pain. Chest pain is mainly localized in the mid chest and also slightly left-sided. Abdominal pain is mainly periumbilical more on the left side of the umbilicus. She reported nausea but no vomiting. Denied fever or chills. She was just discharged from here 5 days ago after she was admitted for CHF exacerbation Upon admission she underwent a CT scan of the abdomen and pelvis and that showed: No evidence of urolithiasis, obstructive uropathy, diverticulitis or appendicitis. Cardiomegaly. Vascular calcifications. Mild interstitial edema. Question mild eccentric thickening right lateral and posterior wall urinary bladder. Suggest cystoscopic correlation. Osteoarthritis right hip joint Therefore a urological consultation was requested. The patient denies any prior history of gross hematuria. There is no dysuria, no urgency and no urgency incontinence The patient does have pain to the left side of the umbilicus. I do not think her pain is related to her urinary system. As far as the thickening of the bladder wall that could be checked with a cystoscopy and that could be done in the office at a later date Consultation Date/Type/Reason Admit Date/Time Jul 07, 2018 at 20:09 Date of Consultation: Jul 08, 2018 Type of Consult Urology Reason for Consultation Thick bladder wall on CT scan Requesting Provider: PIO CRAMER MD Date/Time of Note DATE: 07/08/18 TIME: 21:20 Hx of Present Illness 58-year-old female has a history of hypertension, chronic kidney disease, cardiomyopathy with systolic dysfunction with ejection fraction of 20%. She has AICD. She presented to the ER complaining of chest pain and abdominal pain. Chest pain is mainly localized in the mid chest and also slightly left-sided. Abdominal pain is mainly periumbilical more on the left side of the umbilicus. She reported nausea but no vomiting. Denied fever or chills. She was just disc harged from here 5 days ago after she was admitted for CHF exacerbation Upon admission she underwent a CT scan of the abdomen and pelvis and that showed: No evidence of urolithiasis, obstructive uropathy, diverticulitis or appendicitis. Cardiomegaly. Vascular calcifications. Mild interstitial edema. Question mild eccentric thickening right lateral and posterior wall urinary bladder. Suggest cystoscopic correlation. Osteoarthritis right hip joint Therefore a urological consultation was requested. The patient denies any prior history of gross hematuria. There is no dysuria, no urgency and no urgency incontinence Constitutional: no complaints Eyes: no complaints ENT: no complaints Respiratory: No shortness of breath Cardiovascular: chest pain Gastrointestinal: pain (Left side of the umbilicus) Genitourinary: No bleeding, No dysuria, No hematuria Musculoskeletal: no complaints Skin: no complaints Neurologic: no complaints Endocrine: no complaints Lymphatic: no complaints Psychological: no complaints Immunologic: no complaints Past Medical History Medical History: congestive heart failure, hypertension, renal disease Home Meds Active Scripts [Work Note] No Conflict Check This is to certify that the patient was admitted to [facility] from 06/30/2018 to 07/03/2018. She can return back to work on 07/07/2018 with no restrictions. Prov:GERARDO JOHN [employer] 07/03/18 Reported Medications Methylprednisolone* (Medrol* DOSE PACK) 4 Mg/Dose-Pack Tab.ds.pk, 4 MG PO . D JOSE, PACKET Currently on last tablet of third day 07/07/18 Amoxicillin Trihydrate (Amoxicillin) 500 Mg Tablet, 500 MG PO Q8, #30 TAB 07/07/18 Sacubitril/Valsartan (Entresto 49 mg-51 mg Tablet) 1 Each Tablet, 1 TAB PO BID, TAB 06/30/18 Spironolactone* (Aldactone*) 25 Mg Tablet, 12.5 MG PO DAILY, #30 TAB 06/30/18 Lorazepam* (Lorazepam*) 0.5 Mg Tablet, 0.5 MG PO BID PRN for ANXIETY, TAB 01/07/18 Aspirin (Low Dose Aspirin) 81 Mg Tablet.dr, 81 MG PO DAILY, #30 TAB 01/07/18 Bumetanide* (Bumetanide*) 1 Mg Tablet, 2 MG PO BID, TAB 01/07/18 Carvedilol* (Carvedilol*) 3.125 Mg Tablet, 3.125 MG PO BID, #60 TAB 01/07/18 Medications Current Medications IV Flush (NS 3 ml) 3 ml PER PROTOCOL IV ; Start 07/08/18 at 00:00 Ondansetron HCl (Zofran Inj) 4 mg Q6H PRN IV NAUSEA/VOMITING Last administered on 07/08/18 13:39; Admin Dose 4 MG; Start 07/08/18 at 00:00 Acetaminophen (Tylenol Tab) 650 mg Q6H PRN PO .PAIN 1-3 OR TEMP; Start 07/08/18 at 00:00 Acetaminophen/ Hydrocodone Bitart ([place] (5/325)) 1 tab Q6H PRN PO .PAIN 4-6 Last administered on 07/08/18 10:20; Admin Dose 1 TAB; Start 07/08/18 at 00:00 Acetaminophen/ Hydrocodone Bitart ([place] (5/325)) 2 tab Q6H PRN PO .PAIN 7-10; Start 07/08/18 at 00:00 Heparin Sodium (Porcine) (Heparin (5000 Units/1ml)) 5,000 unit Q12 SC Last administered on 07/08/18at 11:03; Admin Dose 5,000 UNIT; Start 07/08/18 at 09:00 Albuterol/ Ipratropium (Duoneb) 3 ml Q2H RESP THERAPY PRN HHN SHORTNESS OF BREATH; Start 07/08/18 at 00:00 Aspirin (Halfprin) 81 mg DAILY PO Last administered on 07/08/18 10:19; Admin Dose 81 MG; Start 07/08/18 at 09:00 Carvedilol (Coreg) 3.125 mg BID PO Last administered on 07/08/18 10:20; Admin Dose 3.125 MG; Start 07/08/18 at 09:00 Spironolactone (Aldactone) 12.5 mg DAILY PO Last administered on 07/08/18 10:20; Admin Dose 12.5 MG; Start 07/08/18 at 09:00 Atorvastatin Calcium (Lipitor) 20 mg HS PO ; Start 07/08/18 at 21:00 Miscellaneous Information Patients own medicat... BID@10,16 XX ; Start 07/08/18 at 10:00 Lorazepam (Ativan) 1 mg BID PRN PO ANXIETY Last administered on 07/08/18at 15:29; Admin Dose 1 MG; Start 07/08/18 at 15:00 Bumetanide (Bumex) 1 mg BID DIURETICS PO Last administered on 07/08/18at 17:46; Admin Dose 1 MG; Start 07/08/18 at 18:00 Pantoprazole (Protonix Iv) 40 mg DAILY@06 IV ; Start 07/09/18 at 06:00 Dicyclomine HCl (Bentyl) 20 mg Q8 GTB ; Start 07/08/18 at 22:00 Allergies: Coded Allergies: azithromycin (Verified Allergy, Unknown, STOMACH UPSET, VITTING, 07/07/18) Past Surgical History Past Surgical Hx: cholecystectomy, other (Biventricular pacemaker ICD) Social History Alcohol Use: none Smoking Status: Former smoker Exam/Review of Systems Exam Vitals Vital Signs Date Temp Pulse Resp B/P (MAP) Pulse Ox O2 O2 Flow FiO2 Time Delivery Rate 07/08/18 88 20:00 07/08/18 98.2 18 121/67 98 19:47 (85) 07/07/18 Nasal 2.0 23:00 Cannula Intake and Output 07/07/18 07/07/18 07/08/18 1515:00 23:00 07:00 IntakeIntake Total 400 ml BalanceBalance 400 ml Constitutional: alert Psych: no complaints Head: normocephalic Eyes: nl conjunctiva ENMT: nl external ears & nose Neck: supple, non-tender Respiratory: normal air movement; No wheezing Cardiovascular: No jugular venous distention (JVD) Gastrointestinal: soft, tender (Left side of umbilicus) Genitourinary - Female: other (Pelvic exam: No mass and no discharge and no pain) Musculoskeletal: nl extremities to inspection Extremities: No calf tenderness Neurological: nl mental status Skin: nl turgor Lymph: nl lymph nodes Results Result Diagram: 07/08/18 0503 07/08/18 0503 Results 24hrs Laboratory Tests Test 07/08/18 01:48 07/08/18 05:03 07/08/18 07:05 Creatine Kinase 29 27 Creatine Kinase Index 1.8 2.1 Creatinine Kinase MB (Mass) 0.52 0.57 Troponin I 0.035 0.032 White Blood Count 12.2 H Red Blood Count 6.13 H Hemoglobin 16.8 H Hematocrit 53.0 H Mean Corpuscular Volume 86.5 Mean Corpuscular Hemoglobin 27.4 L Mean Corpuscular Hemoglobin Concent 31.7 L Red Cell Distribution Width 15.5 H Platelet Count 307 Mean Platelet Volume 10.8 H Immature Granulocytes % 0.300 Neutrophils % 82.2 H Lymphocytes % 5.5 L Monocytes % 11.8 H Eosinophils % 0.0 Basophils % 0.2 Nucleated Red Blood Cells % 0.0 Immature Granulocytes # 0.040 H Neutrophils # 10.1 H Lymphocytes # 0.7 L Monocytes # 1.4 H Eosinophils # 0.0 Basophils # 0.0 Nucleated Red Blood Cells # 0.0 Sodium Level 134 L Potassium Level 3.4 L Chloride Level 82 L Carbon Dioxide Level 38 H Anion Gap 14 H Blood Urea Nitrogen 63 H Creatinine 1.52 H Est Glomerular Filtrat Rate mL/min 43 L Glucose Level 155 Calcium Level 9.6 Magnesium Level 2.7 H Total Bilirubin 1.7 H Direct Bilirubin 0.00 Indirect Bilirubin 1.7 H Aspartate Amino Transf (AST/SGOT) 46 Alanine Aminotransferase (ALT/SGPT) 59 Alkaline Phosphatase 108 Total Protein 7.7 Albumin 4.4 Globulin 3.30 H Albumin/Globulin Ratio 1.[address] scan of the abdomen and pelvis: No evidence of urolithiasis, obstructive uropathy, diverticulitis or appendicitis. Cardiomegaly. Vascular calcifications. Mild interstitial edema. Question mild eccentric thickening right lateral and posterior wall urinary bladder. Suggest cystoscopic correlation. Osteoarthritis right hip joint Medications Medication Current Medications IV Flush (NS 3 ml) 3 ml PER PROTOCOL IV ; Start 07/08/18 at 00:00 Ondansetron HCl (Zofran Inj) 4 mg Q6H PRN IV NAUSEA/VOMITING Last administered on 07/08/18at 13:39; Admin Dose 4 MG; Start 07/08/18 at 00:00 Acetaminophen (Tylenol Tab) 650 mg Q6H PRN PO .PAIN 1-3 OR TEMP; Start 07/08/18 at 00:00 Acetaminophen/ Hydrocodone Bitart ([place] (5/325)) 1 tab Q6H PRN PO .PAIN 4-6 Last administered on 07/08/18at 10:20; Admin Dose 1 TAB; Start 07/08/18 at 00:00 Acetaminophen/ Hydrocodone Bitart ([place] (5/325)) 2 tab Q6H PRN PO .PAIN 7-10; Start 07/08/18 at 00:00 Heparin Sodium (Porcine) (Heparin (5000 Units/1ml)) 5,000 unit Q12 SC Last administered on 07/08/18at 11:03; Admin Dose 5,000 UNIT; Start 07/08/18 at 09:00 Albuterol/ Ipratropium (Duoneb) 3 ml Q2H RESP THERAPY PRN HHN SHORTNESS OF BREATH; Start 07/08/18 at 00:00 Aspirin (Halfprin) 81 mg DAILY PO Last administered on 07/08/18at 10:19; Admin Dose 81 MG; Start 07/08/18 at 09:00 Carvedilol (Coreg) 3.125 mg BID PO Last administered on 07/08/18 10:20; Admin Dose 3.125 MG; Start 07/08/18 at 09:00 Spironolactone (Aldactone) 12.5 mg DAILY PO Last administered on 07/08/18 10:20; Admin Dose 12.5 MG; Start 07/08/18 at 09:00 Atorvastatin Calcium (Lipitor) 20 mg HS PO ; Start 07/08/18 at 21:00 Miscellaneous Information Patients own medicat... BID@10,16 XX ; Start 07/08/18 at 10:00 Lorazepam (Ativan) 1 mg BID PRN PO ANXIETY Last administered on 07/08/18at 15:29; Admin Dose 1 MG; Start 07/08/18 at 15:00 Bumetanide (Bumex) 1 mg BID DIURETICS PO Last administered on 07/08/18at 17:46; Admin Dose 1 MG; Start 07/08/18 at 18:00 Pantoprazole (Protonix Iv) 40 mg DAILY@06 IV ; Start 07/09/18 at 06:00 Dicyclomine HCl (Bentyl) 20 mg Q8 GTB ; Start 07/08/18 at 22:00 EVERETT ALCANTARA MD Jul 08, 2018 21:30
--- NOTE | 2018-07-08 21:50 | CONS ---
DATE OF ADMISSION: 07/07/2018 DATE OF CONSULTATION: HISTORY OF PRESENT ILLNESS: The patient is a 58-year-old female with history of hypertension, chroni c kidney disease, cardiomyopathy, ischemic with ejection fraction of 20% and AICD, comes to the ER co mplaining of chest pain and abdominal pain. The patient also complains of nausea, vomiting. No GI b leeding. No weight loss. No constipation. No diarrhea. The patient had a CAT scan of the abdomen and pelvis done which shows a cystitis. A GI consult was called in for abdominal pain. PAST MEDICAL HISTORY: AZITHROMYCIN. PAST SURGICAL HISTORY: Cholecystectomy. SOCIAL HISTORY: Does not smoke or drink. LABORATORY DATA: The patient's hematocrit is high at 55 and 53. WBC is mildly elevated to 12.3. LF Ts abnormal. Her bilirubin is elevated at 1.7, but 100% indirect bilirubinemia consistent with the d iagnosis of Gilbert's syndrome. The rest of the LFTs have been normal. BNP was 3510. ____ was mild ly elevated. The lipase was mildly elevated to 350. IMAGING STUDIES: She had a CAT scan of the abdomen and pelvis done. Pancreas was normal. Gallbladd er has been removed. No ductal dilatation. There was a thickening of the urinary bladder. Pancreas was normal. No adnexal mass. No adenopathy. There was no thickening of the bowel. No ____ in the bowel wall. The patient had EGD 2 years ago which showed a good reflux. There was a small polyp in the colon and the patient had a mild gastritis but no significant finding. IMPRESSION: 1. Abdominal pain with emesis, rule out peptic ulcer disease or gastritis, rule out ischemic bowel. 2. Ischemic cardiomyopathy with ejection fraction of 50%. 3. Hypertension. 4. Chronic kidney disease. 5. 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 6. Pulmonary hypertension. 7. AICD. 8. Mild elevation of lipase with normal pancreas and a CAT scan. PLAN: At this point, is to send stool for occult blood. Continue with PPI. Temporarily, we will st art the patient on antispasmodic medication. The patient is not a candidate for CT angiogram because of renal insufficiency. Dictated By: ASHELY RAMIREZ/CHRISTIANO Conf#: [id number] DID#: [id number] CC: PIO CRAMER MD;*[facility]*
[2018-07-08] MEDS: DICYCLOMINE 10 MG CAP GTB SCH (22:30)
[2018-07-09] VITALS (11 sets, daily range): BP systolic 91–103; BP diastolic 50–68; PULSE 70–89; RESP 18–20
[2018-07-09] MEDS: HYDROCODONE/APAP (5/325) TAB PO PRN ×3 (04:19→20:04)
[2018-07-09] MEDS: BUMETANIDE 1 MG TAB PO SCH (06:19)
[2018-07-09] MEDS: DICYCLOMINE 10 MG CAP GTB SCH ×3 (06:19→20:18)
[2018-07-09] MEDS: PANTOPRAZOLE 40 MG INJ IV SCH (06:19)
[2018-07-09] MEDS: ASPIRIN (EC) 81 MG TAB PO SCH (08:56)
[2018-07-09] MEDS: SPIRONOLACTONE 25 MG TAB PO SCH (08:57)
[2018-07-09] MEDS: HEPARIN 5,000 UNIT/1 ML VIAL SC SCH ×2 (09:00→20:23)
[2018-07-09] MEDS ORDERED: POTASSIUM CHLORIDE (SR) 20 MEQ TAB PO STA (09:13)
--- NOTE | 2018-07-09 09:41 | PN ---
DATE: 07/09/2018 SUBJECTIVE: The patient continues to have shortness of breath. The patient continues to have abdomi nal pain. No other events noted. No hemoptysis, hematemesis, hematochezia. The patient's urinary o utput has been adequate. OBJECTIVE: VITAL SIGNS: Blood pressure is 103/68, respiration 18, pulse 70, temperature 97.6. HEENT: Head is normocephalic. NECK: Supple. HEART: Regular rate. LUNGS: Show diminished breath sounds at the base. ABDOMEN: Soft, nontender to palpation without rebound or guarding. EXTREMITIES: Negative for clubbing, cyanosis. Positive edema. DERMATOLOGIC: No rashes. MUSCULOSKELETAL: No joint effusions. NEUROLOGIC: No change in exam. MEDICATIONS: The patient's medications have been reviewed. LABORATORY DATA: Shows sodium 130, potassium 3.2, chloride 84, BUN 40, creatinine 1.53. White count 11.6, hemoglobin 16.6, platelet count is 277. ASSESSMENT AND PLAN: 1. Nonoliguric acute kidney injury on top of chronic kidney disease with previous baseline creatinin e of 1.3 mg/dL. Etiology of acute kidney injury is secondary to cardiorenal syndrome. The patient's urinalysis was reviewed. No evidence of active sediment. The patient's renal function has been flu ctuating the last 24 hours with a slight increase in creatinine. Would continue current medical shi gement. Continue to adjust diuretic therapy. We will hold diuretics and continue the patient on Katya mox as the patient has underlying alkalemia. Monitor I's and O's closely. 2. Metabolic alkalemia secondary to diuretic therapy, hypokalemia. Continue Diamox. Will continue to replete potassium chloride and monitor. 3. Hypokalemia. Replete potassium chloride. 4. Hyponatremia secondary to acute kidney injury causing decreased free water urinary excretion. Co ntinue to limit free water intake. 5. Polycythemia. Etiology may be secondary to heart failure. Continue to monitor. 6. Mineral bone disorder, monitor calcium and phosphorus levels. 7. Hypomagnesemia. Continue to monitor and replete. 8. Abdominal pain. Etiology is unclear, possibly due to heart failure causing anginal ischemia. Co ntinue to monitor. Follow up with GI. 9. Acute heart failure. The patient has an ejection fraction of approximately 20%. Continue curren t medical regimen. Follow up with Cardiology. 10. History of arrhythmia, status post pacemaker placement, ICD placement. 11. History of pulmonary hypertension. 12. Acute respiratory failure secondary to congestive heart failure exacerbation. Continue to monit or. Dictated By: AZEEM ALTMAN/CHRISTIANO Conf#: [id number] DID#: [id number]
[2018-07-09] MEDS ORDERED: ACETAZOLAMIDE 500 MG INJ IV ONE (10:30)
--- NOTE | 2018-07-09 12:39 | CONS ---
Assessment/Plan Cardiology NYHA: III Heart Failure Type: Chronic Heart Failure Type: Both Assessment/Plan Hospital Course (Demo Recall) Abdominal pain Bladder abnormalities on CT scan Elevated lipase Chronic systolic congestive heart failure Severe nonischemic cardia myopathy Pulmonary hypertension Acute kidney injury History of biventricular pacemaker/ICD -Patient presents with abdominal pain, nausea and chills -She denies any chest pain or shortness of breath -Patient undergoing GI and urology evaluation -Diuretics as per nephrology Consultation Date/Type/Reason Admit Date/Time Jul 07, 2018 at 20:09 Initial Consult Date 07/08/18 Type of Consult Cardiology Requesting Provider: PIO CRAMER MD Date/Time of Note DATE: 07/09/18 TIME: 12:37 24 HR Interval Summary Free Text/Dictation Denies shortness of breath, chest pain. Abdominal pain still present but improved. Still with nausea Exam/Review of Systems Vital Signs Vitals Vital Signs Date Temp Pulse Resp B/P (MAP) Pulse Ox O2 O2 Flow FiO2 Time Delivery Rate 07/09/18 98.1 71 18 91/61 (71) 100 11:40 07/07/18 Nasal 2.0 23:00 Cannula Intake and Output 07/08/18 07/08/18 07/09/18 1515:00 23:00 07:00 IntakeIntake Total 600 ml 250 ml BalanceBalance 600 ml 250 ml Exam Constitutional: alert, oriented (Appears uncomfortable, sleepy) Head: normocephalic Respiratory: other (Coarse breath sounds bilaterally, no wheezing) Cardiovascular: regular rate and rhythm (S1-S2 heard) Gastrointestinal: soft, bowel sounds, tender Extremities: other (No significant edema) Labs Result Diagram: 07/09/1829 07/09/1829 Results 24hrs Laboratory Tests Test 07/08/18 22:00 07/09/18 05:29 07/09/18 09:17 Urine Color YELLOW Urine Clarity CLEAR Urine pH 5.0 Urine Specific [place] 1.010 Urine Ketones NEGATIVE Urine Nitrite NEGATIVE Urine Bilirubin NEGATIVE Urine Urobilinogen NEGATIVE Urine Leukocyte Esterase NEGATIVE Urine Hemoglobin NEGATIVE Urine Random Creatinine 64.90 Urine Random Sodium 23 L Urine Glucose NEGATIVE Urine Total Protein 11.0 White Blood Count 11.6 H Red Blood Count 5.97 H Hemoglobin 16.6 H Hematocrit 52.1 H Mean Corpuscular Volume 87.3 Mean Corpuscular Hemoglobin 27.8 L Mean Corpuscular 31.9 L Hemoglobin Concent Red Cell Distribution Width 15.7 H Platelet Count 277 Mean Platelet Volume 10.5 H Immature Granulocytes % 0.600 H Neutrophils % 80.8 H Lymphocytes % 5.9 L Monocytes % 12.4 H Eosinophils % 0.1 Basophils % 0.2 Nucleated Red Blood Cells % 0.0 Immature Granulocytes # 0.070 H Neutrophils # 9.4 H Lymphocytes # 0.7 L Monocytes # 1.4 H Eosinophils # 0.0 Basophils # 0.0 Nucleated Red Blood Cells # 0.0 Sodium Level 130 L Potassium Level 3.2 L Chloride Level 84 L Carbon Dioxide Level 36 H Anion Gap 10 Blood Urea Nitrogen 40 #H Creatinine 1.53 H Est Glomerular Filtrat 42 L Rate mL/min Glucose Level 136 Calcium Level 9.5 Phosphorus Level 4.0 Magnesium Level 2.6 H Blood Gas Specimen Source Blood arterial Arterial Blood Date Drawn 07/09/2018 10:20:39 AM Arterial Blood pH 7.492 H (Temp corrected) Arterial Blood pCO2 51.1 H (Temp correct) Arterial Blood pO2 78.1 L (Temp corrected) Arterial Blood HCO3 38.2 H Arterial Blood Base Excess 12.4 H Arterial Blood 95.9 Oxygen Saturation Cameron Test ACCEPTAB Arterial Blood Gas Right Radial Puncture Site Arterial 1.4 Blood Carboxyhemoglobin Arterial Blood Methemoglobin 0.2 Blood Gas A-a O2 10.4 Differential Oxyhemoglobin Percent 94.4 Blood Gas Temperature 37.0 Blood Gas Modality ROOM AIR FiO2 21.0 Blood Gas Notified Whom TM Blood Gas Notified Time 07/09/2018 10:30:12 AM Medications Medications Current Medications IV Flush (NS 3 ml) 3 ml PER PROTOCOL IV ; Start 07/08/18 at 00:00 Ondansetron HCl (Zofran Inj) 4 mg Q6H PRN IV NAUSEA/VOMITING Last administered on 07/08/18at 13:39; Admin Dose 4 MG; Start 07/08/18 at 00:00 Acetaminophen (Tylenol Tab) 650 mg Q6H PRN PO .PAIN 1-3 OR TEMP; Start 07/08/18 at 00:00 Acetaminophen/ Hydrocodone Bitart ([place] (5/325)) 1 tab Q6H PRN PO .PAIN 4-6 Last administered on 07/09/18at 04:19; Admin Dose 1 TAB; Start 07/08/18 at 00:00 Acetaminophen/ Hydrocodone Bitart ([place] (5/325)) 2 tab Q6H PRN PO .PAIN 7-10 Last administered on 07/09/18 07:32; Admin Dose 2 TAB; Start 07/08/18 at 00:00 Heparin Sodium (Porcine) (Heparin (5000 Units/1ml)) 5,000 unit Q12 SC Last administered on 07/09/18 09:00; Admin Dose 5,000 UNIT; Start 07/08/18 at 09:00 Albuterol/ Ipratropium (Duoneb) 3 ml Q2H RESP THERAPY PRN HHN SHORTNESS OF BREATH; Start 07/08/18 at 00:00 Aspirin (Halfprin) 81 mg DAILY PO Last administered on 07/09/18 08:56; Admin Dose 81 MG; Start 07/08/18 at 09:00 Carvedilol (Coreg) 3.125 mg BID PO Last administered on 07/09/18 08:56; Admin Dose 3.125 MG; Start 07/08/18 at 09:00 Spironolactone (Aldactone) 12.5 mg DAILY PO Last administered on 07/09/18 08:57; Admin Dose 12.5 MG; Start 07/08/18 at 09:00 Atorvastatin Calcium (Lipitor) 20 mg HS PO Last administered on 07/08/18 21:12; Admin Dose 20 MG; Start 07/08/18 at 21:00 Miscellaneous Information Patients own medicat... BID@10,16 XX ; Start 07/08/18 at 10:00 Lorazepam (Ativan) 1 mg BID PRN PO ANXIETY Last administered on 07/08/18 22:30; Admin Dose 1 MG; Start 07/08/18 at 15:00 Bumetanide (Bumex) 1 mg BID DIURETICS PO Last administered on 07/09/18 06:19; Admin Dose 1 MG; Start 07/08/18 at 18:00; Status Hold Pantoprazole (Protonix Iv) 40 mg DAILY@06 IV Last administered on 07/09/18 06:19; Admin Dose 40 MG; Start 07/09/18 at 06:00 Dicyclomine HCl (Bentyl) 20 mg Q8 GTB Last administered on 07/09/18 06:19; Admin Dose 20 MG; Start 07/08/18 at 22:00 Gwyn Paris DO Jul 09, 2018 12:39
--- NOTE | 2018-07-09 14:37 | PN ---
Date/Time of Note Date/Time of Note DATE: 07/09/18 TIME: 14:31 Assessment/Plan VTE Prophylaxis Risk score (from Ns)>0 risk: 3 SCD applied (from Ns): Yes Pharmacological prophylaxis: heparin Lines/Catheters IV Catheter Type (from [facility]): Saline Lock Urinary Cath still in place: No Assessment/Plan Assessment/Plan 1. Abdominal pain: Unclear etiology, on PPI, follow up with GI 2. Chest pain, atypical. negative troponin, resolved 3. CHF, systolic, chronic, compensated 4. Cardiomyopathy with systolic dysfunction, EF of 20%: Status post AICD. Continue cardiac meds including Bumex 5. Hypertension, controlled(90s) 6. CKD: Monitor closely 7. Thickening of the bladder wall on CT scan, outpatient follow up with urology 7. DVT prophylaxis: heparin Result Diagram: 07/09/1852807/09/18528 Results 24hrs Laboratory Tests Test 07/08/18 22:00 07/09/18 05:29 07/09/18 09:17 Urine Color YELLOW Urine Clarity CLEAR Urine pH 5.0 Urine Specific [place] 1.010 Urine Ketones NEGATIVE Urine Nitrite NEGATIVE Urine Bilirubin NEGATIVE Urine Urobilinogen NEGATIVE Urine Leukocyte Esterase NEGATIVE Urine Hemoglobin NEGATIVE Urine Random Creatinine 64.90 Urine Random Sodium 23 L Urine Glucose NEGATIVE Urine Total Protein 11.0 White Blood Count 11.6 H Red Blood Count 5.97 H Hemoglobin 16.6 H Hematocrit 52.1 H Mean Corpuscular Volume 87.3 Mean Corpuscular Hemoglobin 27.8 L Mean Corpuscular 31.9 L Hemoglobin Concent Red Cell Distribution Width 15.7 H Platelet Count 277 Mean Platelet Volume 10.5 H Immature Granulocytes % 0.600 H Neutrophils % 80.8 H Lymphocytes % 5.9 L Monocytes % 12.4 H Eosinophils % 0.1 Basophils % 0.2 Nucleated Red Blood Cells % 0.0 Immature Granulocytes # 0.070 H Neutrophils # 9.4 H Lymphocytes # 0.7 L Monocytes # 1.4 H Eosinophils # 0.0 Basophils # 0.0 Nucleated Red Blood Cells # 0.0 Sodium Level 130 L Potassium Level 3.2 L Chloride Level 84 L Carbon Dioxide Level 36 H Anion Gap 10 Blood Urea Nitrogen 40 #H Creatinine 1.53 H Est Glomerular Filtrat 42 L Rate mL/min Glucose Level 136 Calcium Level 9.5 Phosphorus Level 4.0 Magnesium Level 2.6 H Blood Gas Specimen Source Blood arterial Arterial Blood Date Drawn 07/09/2018 10:20:39 AM Arterial Blood pH 7.492 H (Temp corrected) Arterial Blood pCO2 51.1 H (Temp correct) Arterial Blood pO2 78.1 L (Temp corrected) Arterial Blood HCO3 38.2 H Arterial Blood Base Excess 12.4 H Arterial Blood 95.9 Oxygen Saturation Cameron Test ACCEPTAB Arterial Blood Gas Right Radial Puncture Site Arterial 1.4 Blood Carboxyhemoglobin Arterial Blood Methemoglobin 0.2 Blood Gas A-a O2 10.4 Differential Oxyhemoglobin Percent 94.4 Blood Gas Temperature 37.0 Blood Gas Modality ROOM AIR FiO2 21.0 Blood Gas Notified Whom TM Blood Gas Notified Time 07/09/2018 10:30:12 AM Subjective 24 Hr Interval Summary Free Text/Dictation abdominal pain, no BM for 3 days. no chest pain or shortness of breath Exam/Review of Systems Exam Vitals Vital Signs Date Temp Pulse Resp B/P (MAP) Pulse Ox O2 O2 Flow FiO2 Time Delivery Rate 07/09/18 70 12:52 07/09/18 98.1 18 91/61 (71) 100 11:40 07/07/18 Nasal 2.0 23:00 Cannula Intake and Output 07/08/18 07/08/18 07/09/18 1414:59 22:59 06:59 IntakeIntake Total 600 ml 250 ml BalanceBalance 600 ml 250 ml Constitutional: alert, oriented, well developed, obese Head: normocephalic, atraumatic Eyes: nl conjunctiva, EOMI, nl lids, PERRL ENMT: nl external ears & nose, nl lips & teeth, nl nasal mucosa & septum, mucosa pink and moist Neck: supple, non-tender Respiratory: clear to auscultation, normal air movement; No congested cough, No crackles/rales, No diminished breath sounds, No intercostal retraction, No labored breathing, No respirations, No tactile fremitus, No wheezing, No other Cardiovascular: regular rate and rhythm, nl pulses; No bruits, No diastolic murmur, No edema, No gallop, No irregular rhythm, No jugular venous distention (JVD), No murmurs/extra sounds, No rub, No systolic murmur, No S3, No S4, No other Gastrointestinal: soft, nl liver, spleen, tender (cetral abdomen tenderness) Musculoskeletal: nl extremities to inspection Extremities: normal pulses; No calf tenderness, No cyanosis, No clubbing, No edema, No pitting pedal edema, No palpable cord, No tenderness, No other Neurological: DIRECTOR OF DIETARY II-XII intact, nl mental status, nl speech, nl strength Results Results 24hrs Laboratory Tests Test 07/08/18 22:00 07/09/18 05:29 07/09/18 09:17 Urine Color YELLOW Urine Clarity CLEAR Urine pH 5.0 Urine Specific [place] 1.010 Urine Ketones NEGATIVE Urine Nitrite NEGATIVE Urine Bilirubin NEGATIVE Urine Urobilinogen NEGATIVE Urine Leukocyte Esterase NEGATIVE Urine Hemoglobin NEGATIVE Urine Random Creatinine 64.90 Urine Random Sodium 23 L Urine Glucose NEGATIVE Urine Total Protein 11.0 White Blood Count 11.6 H Red Blood Count 5.97 H Hemoglobin 16.6 H Hematocrit 52.1 H Mean Corpuscular Volume 87.3 Mean Corpuscular Hemoglobin 27.8 L Mean Corpuscular 31.9 L Hemoglobin Concent Red Cell Distribution Width 15.7 H Platelet Count 277 Mean Platelet Volume 10.5 H Immature Granulocytes % 0.600 H Neutrophils % 80.8 H Lymphocytes % 5.9 L Monocytes % 12.4 H Eosinophils % 0.1 Basophils % 0.2 Nucleated Red Blood Cells % 0.0 Immature Granulocytes # 0.070 H Neutrophils # 9.4 H Lymphocytes # 0.7 L Monocytes # 1.4 H Eosinophils # 0.0 Basophils # 0.0 Nucleated Red Blood Cells # 0.0 Sodium Level 130 L Potassium Level 3.2 L Chloride Level 84 L Carbon Dioxide Level 36 H Anion Gap 10 Blood Urea Nitrogen 40 #H Creatinine 1.53 H Est Glomerular Filtrat 42 L Rate mL/min Glucose Level 136 Calcium Level 9.5 Phosphorus Level 4.0 Magnesium Level 2.6 H Blood Gas Specimen Source Blood arterial Arterial Blood Date Drawn 07/09/2018 10:20:39 AM Arterial Blood pH 7.492 H (Temp corrected) Arterial Blood pCO2 51.1 H (Temp correct) Arterial Blood pO2 78.1 L (Temp corrected) Arterial Blood HCO3 38.2 H Arterial Blood Base Excess 12.4 H Arterial Blood 95.9 Oxygen Saturation Cameron Test ACCEPTAB Arterial Blood Gas Right Radial Puncture Site Arterial 1.4 Blood Carboxyhemoglobin Arterial Blood Methemoglobin 0.2 Blood Gas A-a O2 10.4 Differential Oxyhemoglobin Percent 94.4 Blood Gas Temperature 37.0 Blood Gas Modality ROOM AIR FiO2 21.0 Blood Gas Notified Whom TM Blood Gas Notified Time 07/09/2018 10:30:12 AM Medications Medication Current Medications IV Flush (NS 3 ml) 3 ml PER PROTOCOL IV ; Start 07/08/18 at 00:00 Ondansetron HCl (Zofran Inj) 4 mg Q6H PRN IV NAUSEA/VOMITING Last administered on 07/08/18 13:39; Admin Dose 4 MG; Start 07/08/18 at 00:00 Acetaminophen (Tylenol Tab) 650 mg Q6H PRN PO .PAIN 1-3 OR TEMP; Start 07/08/18 at 00:00 Acetaminophen/ Hydrocodone Bitart ([place] (5/325)) 1 tab Q6H PRN PO .PAIN 4-6 Last administered on 07/09/18 04:19; Admin Dose 1 TAB; Start 07/08/18 at 00:00 Acetaminophen/ Hydrocodone Bitart ([place] (5/325)) 2 tab Q6H PRN PO .PAIN 7-10 Last administered on 07/09/18 07:32; Admin Dose 2 TAB; Start 07/08/18 at 00:00 Heparin Sodium (Porcine) (Heparin (5000 Units/1ml)) 5,000 unit Q12 SC Last administered on 07/09/18 09:00; Admin Dose 5,000 UNIT; Start 07/08/18 at 09:00 Albuterol/ Ipratropium (Duoneb) 3 ml Q2H RESP THERAPY PRN HHN SHORTNESS OF BREATH; Start 07/08/18 at 00:00 Aspirin (Halfprin) 81 mg DAILY PO Last administered on 07/09/18 08:56; Admin Dose 81 MG; Start 07/08/18 at 09:00 Carvedilol (Coreg) 3.125 mg BID PO Last administered on 07/09/18 08:56; Admin Dose 3.125 MG; Start 07/08/18 at 09:00 Spironolactone (Aldactone) 12.5 mg DAILY PO Last administered on 07/09/18 08:57; Admin Dose 12.5 MG; Start 07/08/18 at 09:00 Atorvastatin Calcium (Lipitor) 20 mg HS PO Last administered on 4/9/19at 21:12; Admin Dose 20 MG; Start 07/08/18 at 21:00 Miscellaneous Information Patients own medicat... BID@10,16 XX ; Start 07/08/18 at 10:00 Lorazepam (Ativan) 1 mg BID PRN PO ANXIETY Last administered on 07/08/18at 22:30; Admin Dose 1 MG; Start 07/08/18 at 15:00 Bumetanide (Bumex) 1 mg BID DIURETICS PO Last administered on 07/09/18at 06:19; Admin Dose 1 MG; Start 07/08/18 at 18:00; Status Hold Pantoprazole (Protonix Iv) 40 mg DAILY@06 IV Last administered on 07/09/18 06:19; Admin Dose 40 MG; Start 07/09/18 at 06:00 Dicyclomine HCl (Bentyl) 20 mg Q8 GTB Last administered on 07/09/18at 14:25; Admin Dose 20 MG; Start 07/08/18 at 22:00 MARY DAMON MD Jul 09, 2018 14:37
[2018-07-09] MEDS ORDERED: BISACODYL (EC) 5 MG TAB PO ONE (15:30)
[2018-07-09] MEDS: ONDANSETRON 4 MG INJ IV PRN (17:24)
--- NOTE | 2018-07-09 19:25 | CONS ---
Assessment/Plan Assessment/Plan Assessment/Plan (Daily) IMPRESSION: 1. Abdominal pain with emesis, rule out peptic ulcer disease or gastritis, rule out ischemic bowel. 2. Ischemic cardiomyopathy with ejection fraction of 50%. 3. Hypertension. 4. Chronic kidney disease. 5. 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 6. Pulmonary hypertension. 7. AICD. 8. Mild elevation of lipase with normal pancreas and a CAT scan. Plan We will start the patient on Reglan. Case was discussed with the patient and also with the father We will also get a vascular surgery consult May need EGD Consultation Date/Type/Reason Admit Date/Time Jul 07, 2018 at 20:09 Initial Consult Date 07/08/18 Requesting Provider: PIO CRAMER MD Date/Time of Note DATE: 07/09/18 TIME: 19:23 24 HR Interval Summary Free Text/Dictation Patient complains of abdominal pain nausea vomiting. Pain is aggravated by the food No diarrhea Exam/Review of Systems Exam Vitals Vital Signs Date Temp Pulse Resp B/P (MAP) Pulse Ox O2 O2 Flow FiO2 Time Delivery Rate 07/09/18 70 16:12 07/09/18 98.0 18 100/54 95 16:05 (69) 07/07/18 Nasal 2.0 23:00 Cannula Intake and Output 07/08/18 07/08/18 07/09/18 1515:00 23:00 07:00 IntakeIntake Total 600 ml 250 ml BalanceBalance 600 ml 250 ml Constitutional: alert, oriented, well developed Psych: no complaints, nl mood/affect Head: normocephalic, atraumatic Eyes: nl conjunctiva, EOMI, nl lids, nl sclera, PERRL ENMT: nl external ears & nose, nl lips & teeth, nl nasal mucosa & septum Neck: supple, non-tender Respiratory: clear to auscultation, normal air movement Cardiovascular: regular rate and rhythm, nl pulses Gastrointestinal: soft, nl liver, spleen, non-tender Musculoskeletal: nl extremities to inspection, nl gait and stance Extremities: normal pulses Neurological: PRINT SUPPORT SPECIALIST II-XII intact, nl mental status, nl speech, nl strength Skin: nl turgor; No rash or lesions Lymph: nl lymph nodes Results Result Diagram: 07/09/18 0529 07/09/18528 Results 24hrs Laboratory Tests Test 07/08/18 22:00 07/09/18 05:29 07/09/18 09:17 Urine Color YELLOW Urine Clarity CLEAR Urine pH 5.0 Urine Specific [place] 1.010 Urine Ketones NEGATIVE Urine Nitrite NEGATIVE Urine Bilirubin NEGATIVE Urine Urobilinogen NEGATIVE Urine Leukocyte Esterase NEGATIVE Urine Hemoglobin NEGATIVE Urine Random Creatinine 64.90 Urine Random Sodium 23 L Urine Glucose NEGATIVE Urine Total Protein 11.0 White Blood Count 11.6 H Red Blood Count 5.97 H Hemoglobin 16.6 H Hematocrit 52.1 H Mean Corpuscular Volume 87.3 Mean Corpuscular Hemoglobin 27.8 L Mean Corpuscular 31.9 L Hemoglobin Concent Red Cell Distribution Width 15.7 H Platelet Count 277 Mean Platelet Volume 10.5 H Immature Granulocytes % 0.600 H Neutrophils % 80.8 H Lymphocytes % 5.9 L Monocytes % 12.4 H Eosinophils % 0.1 Basophils % 0.2 Nucleated Red Blood Cells % 0.0 Immature Granulocytes # 0.070 H Neutrophils # 9.4 H Lymphocytes # 0.7 L Monocytes # 1.4 H Eosinophils # 0.0 Basophils # 0.0 Nucleated Red Blood Cells # 0.0 Sodium Level 130 L Potassium Level 3.2 L Chloride Level 84 L Carbon Dioxide Level 36 H Anion Gap 10 Blood Urea Nitrogen 40 #H Creatinine 1.53 H Est Glomerular Filtrat 42 L Rate mL/min Glucose Level 136 Calcium Level 9.5 Phosphorus Level 4.0 Magnesium Level 2.6 H Blood Gas Specimen Source Blood arterial Arterial Blood Date Drawn 07/09/2018 10:20:39 AM Arterial Blood pH 7.492 H (Temp corrected) Arterial Blood pCO2 51.1 H (Temp correct) Arterial Blood pO2 78.1 L (Temp corrected) Arterial Blood HCO3 38.2 H Arterial Blood Base Excess 12.4 H Arterial Blood 95.9 Oxygen Saturation Cameron Test ACCEPTAB Arterial Blood Gas Right Radial Puncture Site Arterial 1.4 Blood Carboxyhemoglobin Arterial Blood Methemoglobin 0.2 Blood Gas A-a O2 10.4 Differential Oxyhemoglobin Percent 94.4 Blood Gas Temperature 37.0 Blood Gas Modality ROOM AIR FiO2 21.0 Blood Gas Notified Whom TM Blood Gas Notified Time 07/09/2018 10:30:12 AM Medications Medication Current Medications IV Flush (NS 3 ml) 3 ml PER PROTOCOL IV ; Start 07/08/18 at 00:00 Ondansetron HCl (Zofran Inj) 4 mg Q6H PRN IV NAUSEA/VOMITING Last administered on 07/09/18 17:24; Admin Dose 4 MG; Start 07/08/18 at 00:00 Acetaminophen (Tylenol Tab) 650 mg Q6H PRN PO .PAIN 1-3 OR TEMP; Start 07/08/18 at 00:00 Acetaminophen/ Hydrocodone Bitart ([place] (5/325)) 1 tab Q6H PRN PO .PAIN 4-6 Last administered on 07/09/18 04:19; Admin Dose 1 TAB; Start 07/08/18 at 00:00 Acetaminophen/ Hydrocodone Bitart ([place] (5/325)) 2 tab Q6H PRN PO .PAIN 7-10 Last administered on 07/09/18 07:32; Admin Dose 2 TAB; Start 07/08/18 at 00:00 Heparin Sodium (Porcine) (Heparin (5000 Units/1ml)) 5,000 unit Q12 SC Last administered on 07/09/18 09:00; Admin Dose 5,000 UNIT; Start 07/08/18 at 09:00 Albuterol/ Ipratropium (Duoneb) 3 ml Q2H RESP THERAPY PRN HHN SHORTNESS OF BREATH; Start 07/08/18 at 00:00 Aspirin (Halfprin) 81 mg DAILY PO Last administered on 07/09/18 08:56; Admin Dose 81 MG; Start 07/08/18 at 09:00 Carvedilol (Coreg) 3.125 mg BID PO Last administered on 07/09/18 08:56; Admin Dose 3.125 MG; Start 07/08/18 at 09:00 Spironolactone (Aldactone) 12.5 mg DAILY PO Last administered on 07/09/18 08:57; Admin Dose 12.5 MG; Start 07/08/18 at 09:00 Atorvastatin Calcium (Lipitor) 20 mg HS PO Last administered on 07/08/18 21:12; Admin Dose 20 MG; Start 07/08/18 at 21:00 Miscellaneous Information Patients own medicat... BID@10,16 XX ; Start 07/08/18 at 10:00 Lorazepam (Ativan) 1 mg BID PRN PO ANXIETY Last administered on 07/08/18 22:30; Admin Dose 1 MG; Start 07/08/18 at 15:00 Bumetanide (Bumex) 1 mg BID DIURETICS PO Last administered on 07/09/18at 06:19; Admin Dose 1 MG; Start 07/08/18 at 18:00; Status Hold Pantoprazole (Protonix Iv) 40 mg DAILY@06 IV Last administered on 07/09/18at 06:19; Admin Dose 40 MG; Start 07/09/18 at 06:00 Dicyclomine HCl (Bentyl) 20 mg Q8 GTB Last administered on 07/09/18at 14:25; Admin Dose 20 MG; Start 07/08/18 at 22:00 Metoclopramide HCl (Reglan) 5 mg Q6 IV ; Start 07/10/18 at 00:00 ASHELY LOO MD Jul 09, 2018 19:25
[2018-07-09] MEDS: ATORVASTATIN 20 MG TAB PO SCH (20:18)
[2018-07-10] VITALS (13 sets, daily range): BP systolic 98–109; BP diastolic 61–79; PULSE 69–78; RESP 18–21
[2018-07-10] MEDS: METOCLOPRAMIDE 10 MG INJ IV SCH ×5 (00:18→23:39)
[2018-07-10] MEDS: HYDROCODONE/APAP (5/325) TAB PO PRN ×3 (04:28→20:18)
[2018-07-10] MEDS: DICYCLOMINE 10 MG CAP GTB SCH ×3 (05:06→21:20)
[2018-07-10] MEDS: PANTOPRAZOLE 40 MG INJ IV SCH (05:06)
[2018-07-10] MEDS ORDERED: POTASSIUM CHLORIDE (SR) 20 MEQ TAB PO STA (08:54)
--- NOTE | 2018-07-10 09:24 | PN ---
DATE: 07/10/2018 SUBJECTIVE: The patient is stable. The patient's abdominal pain has been improving. No other event s noted. OBJECTIVE: VITAL SIGNS: Blood pressure is 108/70, pulse 75, respirations 19, temperature 97.8. HEENT: Head is normocephalic. NECK: Supple. HEART: Regular rate. LUNGS: Show diminished breath sounds at the base. ABDOMEN: Soft, nontender to palpation without rebound or guarding. EXTREMITIES: Negative for clubbing, cyanosis, no edema. DERMATOLOGIC: No rashes. MUSCULOSKELETAL: No joint effusion. NEUROLOGIC: No change in exam. MEDICATIONS: Reviewed. LABORATORY DATA: Show sodium 127, potassium is 3.2, chloride 85, BUN 42, creatinine 1.45. ASSESSMENT AND PLAN: 1. Nonoliguric acute kidney injury on top of chronic kidney disease with previous baseline creatinin e of 1.30 mg/dL. Etiology of acute kidney injury is secondary to cardiorenal syndrome. The patient' s renal function is returning back to previous baseline. Continue current treatment plan, supportive care, renally dose all medicines. We will hold diuretic therapy for the next 24 hours due to signif icant electrolyte abnormalities. Monitor closely. 2. Hypernatremia, etiology is multifactorial secondary to hypokalemia, acute kidney injury, excessiv e free water intake. Plan is to limit free water intake to no more than 800 mL daily correct underly ing hyperkalemia. Monitor closely. 4. Hypokalemia. We will replete with potassium chloride. 5. Metabolic alkalemia secondary to diuretic therapy. The patient is status post Diamox. Bicarbona te levels are improving. Continue to monitor. 6. Mineral bone disorder, monitor calcium and phosphorus levels. 7. Hypomagnesemia. Continue to monitor and replete. 8. Polycythemia. Continue to monitor. 9. Acute on chronic decompensated systolic heart failure. Continue medical management. Follow up w [facility] cardiology. Continue intermittent diuretic therapy. 10. Abdominal pain. Etiology is unclear. Continue to monitor. Follow up with GI. 11. History of arrhythmia status post pacemaker placement. 12. History of pulmonary hypertension. 13. Acute respiratory failure secondary to congestive heart failure exacerbation. Continue to monit or. 14. Constipation. Continue MiraLax. Dictated By: AZEEM ALTMAN/CHRISTIANO Conf#: [id number] [facility]#: [id number] CC: PIO CRAMER MD; MARY DAMON MD; EVERETT ALCANTARA MD;*[facility]*
[2018-07-10] MEDS: ASPIRIN (EC) 81 MG TAB PO SCH (09:25)
[2018-07-10] MEDS: SPIRONOLACTONE 25 MG TAB PO SCH (09:26)
[2018-07-10] MEDS: HEPARIN 5,000 UNIT/1 ML VIAL SC SCH ×2 (09:42→21:00)
[2018-07-10] MEDS: POLYETHYLENE GLYCOL 17 GM PACKET PO SCH (09:43)
--- NOTE | 2018-07-10 13:09 | PN ---
Date/Time of Note Date/Time of Note DATE: 07/10/18 TIME: 13:06 Assessment/Plan VTE Prophylaxis Risk score (from Nsg)>0 risk: 4 SCD applied (from Nsg): Yes Pharmacological prophylaxis: heparin Lines/Catheters IV Catheter Type (from Nrsg): Saline Lock Urinary Cath still in place: No Assessment/Plan Assessment/Plan 1. Abdominal pain: Unclear etiology, on PPI, added reglan since 07/09/2018 no improvement ?EGD 2. Chest pain, atypical. negative troponin, resolved 3. CHF, systolic, chronic, compensated 4. Cardiomyopathy with systolic dysfunction, EF of 20%: Status post AICD. Continue cardiac meds including Bumex 5. Hypertension, controlled(90s) 6. CKD: Monitor closely 7. Thickening of the bladder wall on CT scan, outpatient follow up with urology 8. Hypokalemia, KCL 9. DVT prophylaxis: heparin Result Diagram: 07/10/18 0519 07/10/18 0519 Results 24hrs Laboratory Tests Test 07/10/18 05:19 White Blood Count 11.3 H Red Blood Count 5.99 H Hemoglobin 16.5 H Hematocrit 52.2 H Mean Corpuscular Volume 87.1 Mean Corpuscular Hemoglobin 27.5 L Mean Corpuscular Hemoglobin Concent 31.6 L Red Cell Distribution Width 15.6 H Platelet Count 260 Mean Platelet Volume 10.9 H Immature Granulocytes % 0.400 Neutrophils % 80.6 H Lymphocytes % 7.6 L Monocytes % 11.0 Eosinophils % 0.3 Basophils % 0.1 Nucleated Red Blood Cells % 0.0 Immature Granulocytes # 0.040 H Neutrophils # 9.1 H Lymphocytes # 0.9 Monocytes # 1.2 H Eosinophils # 0.0 Basophils # 0.0 Nucleated Red Blood Cells # 0.0 Sodium Level 127 L Potassium Level 3.2 L Chloride Level 85 L Carbon Dioxide Level 31 Anion Gap 11 Blood Urea Nitrogen 42 H Creatinine 1.45 H Est Glomerular Filtrat Rate mL/min 45 L Glucose Level 134 Calcium Level 9.3 Phosphorus Level 3.5 Magnesium Level 2.6 H Subjective 24 Hr Interval Summary Free Text/Dictation still has abdominal pain with nausea and vomiting, no chest pain, no shortness of breath Exam/Review of Systems Exam Vitals Vital Signs Date Temp Pulse Resp B/P (MAP) Pulse Ox O2 O2 Flow FiO2 Time Delivery Rate 07/10/18 74 12:06 07/10/18 97.9 19 101/67 97 Room Air 11:46 (78) 07/07/18 2.0 23:00 Intake and Output 07/09/18 07/09/18 07/10/18 1515:00 23:00 07:00 IntakeIntake Total 600 ml 600 ml BalanceBalance 600 ml 600 ml Constitutional: alert, oriented, well developed, obese Head: normocephalic, atraumatic Eyes: nl conjunctiva, EOMI, nl lids, PERRL ENMT: nl external ears & nose, nl lips & teeth, nl nasal mucosa & septum Neck: supple, non-tender Respiratory: clear to auscultation; No normal air movement, No congested cough, No crackles/rales, No diminished breath sounds, No intercostal retraction, No labored breathing, No respirations, No tactile fremitus, No wheezing, No other Cardiovascular: regular rate and rhythm, nl pulses; No bruits, No diastolic murmur, No edema, No gallop, No irregular rhythm, No jugular venous distention (JVD), No murmurs/extra sounds, No rub, No systolic murmur, No S3, No S4, No other Gastrointestinal: soft, nl liver, spleen, other (upper abdominal tenderness) Musculoskeletal: nl extremities to inspection Extremities: normal pulses; No calf tenderness, No cyanosis, No clubbing, No edema, No pitting pedal edema, No palpable cord, No tenderness, No other Neurological: REAL ESTATE ASSOCIATE ATTORNEY II-XII intact, nl mental status, nl speech, nl strength Results Results 24hrs Laboratory Tests Test 07/10/18 05:19 White Blood Count 11.3 H Red Blood Count 5.99 H Hemoglobin 16.5 H Hematocrit 52.2 H Mean Corpuscular Volume 87.1 Mean Corpuscular Hemoglobin 27.5 L Mean Corpuscular Hemoglobin Concent 31.6 L Red Cell Distribution Width 15.6 H Platelet Count 260 Mean Platelet Volume 10.9 H Immature Granulocytes % 0.400 Neutrophils % 80.6 H Lymphocytes % 7.6 L Monocytes % 11.0 Eosinophils % 0.3 Basophils % 0.1 Nucleated Red Blood Cells % 0.0 Immature Granulocytes # 0.040 H Neutrophils # 9.1 H Lymphocytes # 0.9 Monocytes # 1.2 H Eosinophils # 0.0 Basophils # 0.0 Nucleated Red Blood Cells # 0.0 Sodium Level 127 L Potassium Level 3.2 L Chloride Level 85 L Carbon Dioxide Level 31 Anion Gap 11 Blood Urea Nitrogen 42 H Creatinine 1.45 H Est Glomerular Filtrat Rate mL/min 45 L Glucose Level 134 Calcium Level 9.3 Phosphorus Level 3.5 Magnesium Level 2.6 H Medications Medication Current Medications IV Flush (NS 3 ml) 3 ml PER PROTOCOL IV ; Start 07/08/18 at 00:00 Ondansetron HCl (Zofran Inj) 4 mg Q6H PRN IV NAUSEA/VOMITING Last administered on 07/09/18 17:24; Admin Dose 4 MG; Start 07/08/18 at 00:00 Acetaminophen (Tylenol Tab) 650 mg Q6H PRN PO .PAIN 1-3 OR TEMP; Start 07/08/18 at 00:00 Acetaminophen/ Hydrocodone Bitart ([place] (5/325)) 1 tab Q6H PRN PO .PAIN 4-6 Last administered on 07/10/18 04:28; Admin Dose 1 TAB; Start 07/08/18 at 00:00 Acetaminophen/ Hydrocodone Bitart ([place] (5/325)) 2 tab Q6H PRN PO .PAIN 7-10 Last administered on 07/10/18 12:46; Admin Dose 2 TAB; Start 07/08/18 at 00:00 Heparin Sodium (Porcine) (Heparin (5000 Units/1ml)) 5,000 unit Q12 SC Last administered on 07/10/18 09:42; Admin Dose 5,000 UNIT; Start 07/08/18 at 09:00 Albuterol/ Ipratropium (Duoneb) 3 ml Q2H RESP THERAPY PRN HHN SHORTNESS OF BREATH; Start 07/08/18 at 00:00 Aspirin (Halfprin) 81 mg DAILY PO Last administered on 07/10/18 09:25; Admin Dose 81 MG; Start 07/08/18 at 09:00 Carvedilol (Coreg) 3.125 mg BID PO Last administered on 07/10/18 09:26; Admin Dose 3.125 MG; Start 07/08/18 at 09:00 Spironolactone (Aldactone) 12.5 mg DAILY PO Last administered on 07/10/18 09:26; Admin Dose 12.5 MG; Start 07/08/18 at 09:00 Atorvastatin Calcium (Lipitor) 20 mg HS PO Last administered on 07/09/18 20:18; Admin Dose 20 MG; Start 07/08/18 at 21:00 Miscellaneous Information Patients own medicat... BID@10,16 XX ; Start 07/08/18 at 10:00 Lorazepam (Ativan) 1 mg BID PRN PO ANXIETY Last administered on 07/08/18at 22:30; Admin Dose 1 MG; Start 07/08/18 at 15:00 Bumetanide (Bumex) 1 mg BID DIURETICS PO Last administered on 07/09/18 06:19; Admin Dose 1 MG; Start 07/08/18 at 18:00; Status Hold Pantoprazole (Protonix Iv) 40 mg DAILY@06 IV Last administered on 07/10/18 05:06; Admin Dose 40 MG; Start 07/09/18 at 06:00 Dicyclomine HCl (Bentyl) 20 mg Q8 GTB Last administered on 07/10/18 05:06; Admin Dose 20 MG; Start 07/08/18 at 22:00 Metoclopramide HCl (Reglan) 5 mg Q6 IV Last administered on 07/10/18 09:25; Admin Dose 5 MG; Start 07/10/18 at 00:00 Polyethylene Glycol (Miralax) 17 gm DAILY PO Last administered on 07/10/18at 09:43; Admin Dose 17 GM; Start 07/10/18 at 09:00 MARY DAMON MD Jul 10, 2018 13:08
--- NOTE | 2018-07-10 16:42 | CONS ---
Assessment/Plan Cardiology NYHA: III Heart Failure Type: Chronic Heart Failure Type: Both Assessment/Plan Hospital Course (Demo Recall) Abdominal pain Bladder abnormalities on CT scan Elevated lipase Chronic systolic congestive heart failure Severe nonischemic cardia myopathy Pulmonary hypertension Acute kidney injury History of biventricular pacemaker/ICD -Patient presents with abdominal pain, nausea and chills -She denies any chest pain or shortness of breath -No evidence of decompensated congestive heart failure at the current time -Patient undergoing GI workup -Diuretics as per nephrology Consultation Date/Type/Reason Admit Date/Time Jul 07, 2018 at 20:09 Initial Consult Date 07/08/18 Type of Consult Cardiology Requesting Provider: PIO CRAMER MD Date/Time of Note DATE: 07/10/18 TIME: 16:41 24 HR Interval Summary Free Text/Dictation Still with intermittent abdominal pain. Still has nausea and unable to eat. Denies chest pain, shortness of breath Exam/Review of Systems Vital Signs Vitals Vital Signs Date Temp Pulse Resp B/P (MAP) Pulse Ox O2 O2 Flow FiO2 Time Delivery Rate 07/10/18 73 16:13 07/10/18 97.6 19 109/70 96 Room Air 15:03 (83) 07/07/18 2.0 23:00 Intake and Output 07/09/18 07/09/18 07/10/18 1515:00 23:00 07:00 IntakeIntake Total 600 ml 600 ml BalanceBalance 600 ml 600 ml Exam Constitutional: alert, oriented (Sleepy but arousable, follows commands) Head: normocephalic Respiratory: other (Coarse breath sounds bilaterally, no wheezing) Cardiovascular: regular rate and rhythm (S1-S2 heard) Gastrointestinal: soft, bowel sounds, tender Extremities: other (No significant edema) Labs Result Diagram: 07/10/18 0507/10/18 1443 Results 24hrs Laboratory Tests Test 07/10/18 05:19 07/10/18 14:43 White Blood Count 11.3 H Red Blood Count 5.99 H Hemoglobin 16.5 H Hematocrit 52.2 H Mean Corpuscular Volume 87.1 Mean Corpuscular Hemoglobin 27.5 L Mean Corpuscular Hemoglobin Concent 31.6 L Red Cell Distribution Width 15.6 H Platelet Count 260 Mean Platelet Volume 10.9 H Immature Granulocytes % 0.400 Neutrophils % 80.6 H Lymphocytes % 7.6 L Monocytes % 11.0 Eosinophils % 0.3 Basophils % 0.1 Nucleated Red Blood Cells % 0.0 Immature Granulocytes # 0.040 H Neutrophils # 9.1 H Lymphocytes # 0.9 Monocytes # 1.2 H Eosinophils # 0.0 Basophils # 0.0 Nucleated Red Blood Cells # 0.0 Sodium Level 127 L 126 L Potassium Level 3.2 L 3.7 Chloride Level 85 L 85 L Carbon Dioxide Level 31 31 Anion Gap 11 10 Blood Urea Nitrogen 42 H 38 H Creatinine 1.45 H 1.37 H Est Glomerular Filtrat Rate mL/min 45 L 48 L Glucose Level 134 117 Calcium Level 9.3 9.3 Phosphorus Level 3.5 Magnesium Level 2.6 H Medications Medications Current Medications IV Flush (NS 3 ml) 3 ml PER PROTOCOL IV ; Start 07/08/18 at 00:00 Ondansetron HCl (Zofran Inj) 4 mg Q6H PRN IV NAUSEA/VOMITING Last administered on 07/09/18 17:24; Admin Dose 4 MG; Start 07/08/18 at 00:00 Acetaminophen (Tylenol Tab) 650 mg Q6H PRN PO .PAIN 1-3 OR TEMP; Start 07/08/18 at 00:00 Acetaminophen/ Hydrocodone Bitart ([place] (5/325)) 1 tab Q6H PRN PO .PAIN 4-6 Last administered on 07/10/18 04:28; Admin Dose 1 TAB; Start 07/08/18 at 00:00 Acetaminophen/ Hydrocodone Bitart ([place] (5/325)) 2 tab Q6H PRN PO .PAIN 7-10 Last administered on 07/10/18 12:46; Admin Dose 2 TAB; Start 07/08/18 at 00:00 Heparin Sodium (Porcine) (Heparin (5000 Units/1ml)) 5,000 unit Q12 SC Last administered on 07/10/18 09:42; Admin Dose 5,000 UNIT; Start 07/08/18 at 09:00 Albuterol/ Ipratropium (Duoneb) 3 ml Q2H RESP THERAPY PRN HHN SHORTNESS OF BREATH; Start 07/08/18 at 00:00 Aspirin (Halfprin) 81 mg DAILY PO Last administered on 07/10/18 09:25; Admin Dose 81 MG; Start 07/08/18 at 09:00 Carvedilol (Coreg) 3.125 mg BID PO Last administered on 07/10/18 09:26; Admin Dose 3.125 MG; Start 07/08/18 at 09:00 Spironolactone (Aldactone) 12.5 mg DAILY PO Last administered on 07/10/18 09:26; Admin Dose 12.5 MG; Start 07/08/18 at 09:00 Atorvastatin Calcium (Lipitor) 20 mg HS PO Last administered on 07/09/18 20:18; Admin Dose 20 MG; Start 07/08/18 at 21:00 Miscellaneous Information Patients own medicat... BID@10,16 XX ; Start 07/08/18 at 10:00 Lorazepam (Ativan) 1 mg BID PRN PO ANXIETY Last administered on 07/08/18 22:30; Admin Dose 1 MG; Start 07/08/18 at 15:00 Bumetanide (Bumex) 1 mg BID DIURETICS PO Last administered on 07/09/18 06:19; Admin Dose 1 MG; Start 07/08/18 at 18:00; Status Hold Pantoprazole (Protonix Iv) 40 mg DAILY@06 IV Last administered on 07/10/18 05:06; Admin Dose 40 MG; Start 07/09/18 at 06:00 Dicyclomine HCl (Bentyl) 20 mg Q8 GTB Last administered on 07/10/18 05:06; Admin Dose 20 MG; Start 07/08/18 at 22:00 Metoclopramide HCl (Reglan) 5 mg Q6 IV Last administered on 07/10/18 09:25; Admin Dose 5 MG; Start 07/10/18 at 00:00 Polyethylene Glycol (Miralax) 17 gm DAILY PO Last administered on 07/10/18 09:43; Admin Dose 17 GM; Start 07/10/18 at 09:00 Gwyn Paris DO Jul 10, 2018 16:42
[2018-07-10] MEDS: ONDANSETRON 4 MG INJ IV PRN (18:35)
[2018-07-10] MEDS: ATORVASTATIN 20 MG TAB PO SCH (21:19)
[2018-07-11] VITALS (25 sets, daily range): BP systolic 77–117; BP diastolic 50–77; PULSE 65–80; RESP 16–39
[2018-07-11] MEDS: DICYCLOMINE 10 MG CAP GTB SCH ×3 (06:00→21:11)
[2018-07-11] MEDS: METOCLOPRAMIDE 10 MG INJ IV SCH ×4 (06:28→23:50)
[2018-07-11] MEDS: PANTOPRAZOLE 40 MG INJ IV SCH (06:28)
[2018-07-11] MEDS ORDERED: POTASSIUM CHLORIDE (SR) 20 MEQ TAB PO STA (08:22)
[2018-07-11] MEDS ORDERED: ACETAZOLAMIDE 500 MG INJ IV ONE (09:00)
[2018-07-11] MEDS: HEPARIN 5,000 UNIT/1 ML VIAL SC SCH ×2 (09:00→21:14)
[2018-07-11] MEDS: POLYETHYLENE GLYCOL 17 GM PACKET PO SCH (09:00)
--- NOTE | 2018-07-11 09:12 | PN ---
DATE: 07/11/2018 SUBJECTIVE: The patient is stable. The patient's abdominal pain has been improving. No other event s noted. No hemoptysis, hematemesis or hematochezia. OBJECTIVE: VITAL SIGNS: Blood pressure is 98/66, respirations 22, pulse 69, temperature 97.8. HEENT: Head is normocephalic. NECK: Supple. HEART: Regular rate. LUNGS: Show diminished breath sounds at the base. ABDOMEN: Soft, nontender to palpation without rebound or guarding. EXTREMITIES: Negative for clubbing, cyanosis, no edema. DERMATOLOGIC: No rashes. MUSCULOSKELETAL: No joint effusion. NEUROLOGIC: No change in exam. MEDICATIONS: Reviewed. LABORATORY DATA: Reviewed. ASSESSMENT AND PLAN: 1. Nonoliguric acute kidney injury on top of chronic kidney disease with previous baseline creatinin e of 1.30 mg/dL. Etiology of acute kidney injury is secondary to cardiorenal syndrome. The patient' s renal function is fluctuating. We will continue current treatment plan. We will resume the patien t diuretics of Diamox. Monitor closely. 2. Hyponatremia. Etiology is secondary to congestive heart failure, acute kidney injury. Plan is t o continue to limit free water intake. Continue diuretic therapy and monitor. 3. Hypokalemia, improved. Continue to monitor and replete. 4. Metabolic alkalemia secondary to diuretic therapy, continue Diamox. 5. Mineral bone disorder, monitor calcium and phosphorus levels. 6. Hypomagnesemia. Continue to monitor. 7. Polycythemia. Continue to monitor. 8. Acute on chronic decompensated heart failure. Continue medical management. Follow up with cardi ology. 9. Abdominal pain, etiology is unclear. The patient is currently on Bentyl. Continue to monitor. 10. History of arrhythmia, status post pacemaker placement. 11. History of pulmonary hypertension. 12. Acute respiratory failure secondary to congestive heart failure exacerbation. Continue to monit or. 13. Constipation. Continue MiraLax. Dictated By: AZEEM BERNARD DO NR/NTS Conf#: [id number] DID#: [id number] CC: EVERETT ALCANTARA MD; MARY DAMON MD; PIO CRAMER MD;*EndCC*
[2018-07-11] MEDS ORDERED: ONDANSETRON 4 MG INJ ONE (10:00)
[2018-07-11] MEDS ORDERED: PROPOFOL 40 ML ONE (10:42)
[2018-07-11] MEDS ORDERED: LIDOCAINE 4% SOLUTION 50 ML BTL ONE (10:48)
--- NOTE | 2018-07-11 10:51 | PREAC ---
Date/Time of Note Date/Time of Note DATE: 07/11/18 TIME: 10:46 Anesthesia Eval and Record Evaluation Time Pre-Procedure Interview DATE: 07/11/18 TIME: 10:46 Age 58 Sex female NPO: 8 hrs Preoperative diagnosis Abdominal Pain Planned procedure EGD Past Medical History Past Medical History: Includes Cardio: HTN, [place], CAD, PPM/AICD (Dual Chamber), CHF (EF 20%) Pulm: Other (Pulmonary HTN PAP 30's) Renal: WILEY (K = 4.2) Surgery & Anesthesia Issues No known issue Meds Anticoagulation: No Beta Janel within 24 hr: No Reason Beta Janel not given: Pt. not on B-Janel Active Scripts [Work Note] No Conflict Check This is to certify that the patient was admitted to [facility] from 06/30/2018 to 07/03/2018. She can return back to work on 07/07/2018 with no restrictions. Prov:GERARDO JOHN CARBON DIOXIDE OPERATOR 07/03/18 Reported Medications Methylprednisolone* (Medrol* DOSE PACK) 4 Mg/Dose-Pack Tab.ds.pk, 4 MG PO . DIRECTED, PACKET Currently on last tablet of third day 07/07/18 Amoxicillin Trihydrate (Amoxicillin) 500 Mg Tablet, 500 MG PO Q8, #30 TAB 07/07/18 Sacubitril/Valsartan (Entresto 49 mg-51 mg Tablet) 1 Each Tablet, 1 TAB PO BID, TAB 06/30/18 Spironolactone* (Aldactone*) 25 Mg Tablet, 12.5 MG PO DAILY, #30 TAB 06/30/18 Lorazepam* (Lorazepam*) 0.5 Mg Tablet, 0.5 MG PO BID PRN for ANXIETY, TAB 01/07/18 Aspirin (Low Dose Aspirin) 81 Mg Tablet.dr, 81 MG PO DAILY, #30 TAB 01/07/18 Bumetanide* (Bumetanide*) 1 Mg Tablet, 2 MG PO BID, TAB 01/07/18 Carvedilol* (Carvedilol*) 3.125 Mg Tablet, 3.125 MG PO BID, #60 TAB 01/07/18 Current Medications IV Flush (NS 3 ml) 3 ml PER PROTOCOL IV ; Start 07/08/18 at 00:00 Ondansetron HCl (Zofran Inj) 4 mg Q6H PRN IV NAUSEA/VOMITING Last administered on 07/10/18 18:35; Admin Dose 4 MG; Start 07/08/18 at 00:00 Acetaminophen (Tylenol Tab) 650 mg Q6H PRN PO .PAIN 1-3 OR TEMP; Start 07/08/18 at 00:00 Acetaminophen/ Hydrocodone Bitart ([place] (5/325)) 1 tab Q6H PRN PO .PAIN 4-6 Last administered on 07/10/18 04:28; Admin Dose 1 TAB; Start 07/08/18 at 00:00 Acetaminophen/ Hydrocodone Bitart ([place] (5/325)) 2 tab Q6H PRN PO .PAIN 7-10 Last administered on 07/10/18 20:18; Admin Dose 2 TAB; Start 07/08/18 at 00:00 Heparin Sodium (Porcine) (Heparin (5000 Units/1ml)) 5,000 unit Q12 SC Last administered on 07/10/18 09:42; Admin Dose 5,000 UNIT; Start 07/08/18 at 09:00 Albuterol/ Ipratropium (Duoneb) 3 ml Q2H RESP THERAPY PRN HHN SHORTNESS OF BREATH; Start 07/08/18 at 00:00 Aspirin (Halfprin) 81 mg DAILY PO Last administered on 07/10/18 09:25; Admin Dose 81 MG; Start 07/08/18 at 09:00 Carvedilol (Coreg) 3.125 mg BID PO Last administered on 07/10/18 09:26; Admin Dose 3.125 MG; Start 07/08/18 at 09:00 Spironolactone (Aldactone) 12.5 mg DAILY PO Last administered on 07/10/18 09:26; Admin Dose 12.5 MG; Start 07/08/18 at 09:00 Atorvastatin Calcium (Lipitor) 20 mg HS PO Last administered on 07/10/18 21:19; Admin Dose 20 MG; Start 07/08/18 at 21:00 Miscellaneous Information Patients own medicat... BID@10,16 XX ; Start 07/08/18 at 10:00 Lorazepam (Ativan) 1 mg BID PRN PO ANXIETY Last administered on 07/08/18 22:30; Admin Dose 1 MG; Start 07/08/18 at 15:00 Bumetanide (Bumex) 1 mg BID DIURETICS PO Last administered on 07/09/18at 06:19; Admin Dose 1 MG; Start 07/08/18 at 18:00; Status Hold Pantoprazole (Protonix Iv) 40 mg DAILY@06 IV Last administered on 07/11/18at 06:28; Admin Dose 40 MG; Start 07/09/18 at 06:00 Dicyclomine HCl (Bentyl) 20 mg Q8 GTB Last administered on 07/10/18at 21:20; Admin Dose 20 MG; Start 07/08/18 at 22:00 Metoclopramide HCl (Reglan) 5 mg Q6 IV Last administered on 07/11/18at 06:28; Admin Dose 5 MG; Start 07/10/18 at 00:00 Polyethylene Glycol (Miralax) 17 gm DAILY PO Last administered on 07/10/18at 09:43; Admin Dose 17 GM; Start 07/10/18 at 09:00 Meds reviewed: Yes Allergies Coded Allergies: azithromycin (Verified Allergy, Unknown, STOMACH UPSET, [place], 07/07/18) Allergies Reviewed: Yes Labs/Studies Labs Reviewed: Reviewed by anesthesiologist Result Diagram: 07/11/18 0558 07/11/1858 Laboratory Tests 07/11/18 05:58 test: N/A Studies: ECG (Pacer Dependent), 2D Echo (LVEF 20%, PAP 30s) Pre-procedure Exam Last vitals Vital Signs Date Temp Pulse Resp B/P (MAP) Pulse Ox O2 O2 Flow FiO2 Time Delivery Rate 07/11/18 97.1 69 18 113/71 98 Nasal 2.0 10:17 (85) Cannula Airway: Adequate mouth opening, Adequate thyromental dist Mallampati: Mallampati II Teeth: Normal Lung: Abnormal (Decreased) Heart: Abnormal (Paced) ASA Physical Status ASA physical status: 4 Emergency: None Pre-operative Attestations Prior to commencing anesthesia and surgery, the patient was re-evaluated, there was verification of: *The patient's identity *The results of appropriate recent lab work and preoperative vital signs *The above evaluation not changing prior to induction *Anesthetic plan, risk benefits, alternative and complications discussed with patient/family; questions answered; patient/family understands, accepts and wishes to proceed. FRANCE HAINES CRNA Jul 11, 2018 10:50
[2018-07-11] MEDS ORDERED: FLUCONAZOLE 100 MG TAB PO ONE (12:00)
--- NOTE | 2018-07-11 12:10 | PAC ---
Date/Time of Note Date/Time of Note DATE: 07/11/18 TIME: 12:10 Post-Anesthesia Notes Post-Anesthesia Note Last documented vital signs Vital Signs Date Temp Pulse Resp B/P (MAP) Pulse Ox O2 O2 Flow FiO2 Time Delivery Rate 07/11/18 17 117/75 97 Room Air 12:03 (89) 07/11/18 3.0 11:38 07/11/18 98.0 65 11:05 Activity: WNL Respiratory function: WNL Cardiovascular function: WNL Mental status: Baseline Pain reasonably controlled: Yes Hydration appropriate: Yes Nausea/Vomiting absent: Yes RAPHAEL ARAMBULA Jul 11, 2018 12:10
[2018-07-11] MEDS: HYDROCODONE/APAP (5/325) TAB PO PRN (12:24)
[2018-07-11] MEDS: SPIRONOLACTONE 25 MG TAB PO SCH (12:27)
[2018-07-11] MEDS: ASPIRIN (EC) 81 MG TAB PO SCH (12:27)
--- NOTE | 2018-07-11 12:57 | CONS ---
Assessment/Plan Cardiology NYHA: III Heart Failure Type: Chronic Heart Failure Type: Both Assessment/Plan Hospital Course (Demo Recall) Abdominal pain Bladder abnormalities on CT scan Elevated lipase Chronic systolic congestive heart failure Severe nonischemic cardia myopathy Pulmonary hypertension Acute kidney injury History of biventricular pacemaker/ICD -Patient presents with abdominal pain, nausea and chills -She denies any chest pain or shortness of breath -No evidence of decompensated congestive heart failure at the current time -Patient undergoing GI workup-EGD done today, results are pending -Diuretics as per nephrology Consultation Date/Type/Reason Admit Date/Time Jul 07, 2018 at 20:09 Initial Consult Date 07/08/18 Type of Consult Cardiology Requesting Provider: PIO CRAMER MD Date/Time of Note DATE: 07/11/18 TIME: 12:56 24 HR Interval Summary Free Text/Dictation Abdominal pain slightly better. Denies chest pain, shortness of breath. Still nauseous Exam/Review of Systems Vital Signs Vitals Vital Signs Date Temp Pulse Resp B/P (MAP) Pulse Ox O2 O2 Flow FiO2 Time Delivery Rate 07/11/18 98.0 71 22 112/71 96 Room Air 12:20 (85) 07/11/18 3.0 11:38 Intake and Output 07/10/18 07/10/18 07/11/18 1515:00 23:00 07:00 IntakeIntake Total 250 ml BalanceBalance 250 ml Exam Constitutional: alert, oriented (Tired post anesthesia, no apparent distress) Head: normocephalic Respiratory: other (Coarse breath sounds bilaterally, no wheezing) Cardiovascular: regular rate and rhythm (S1-S2 heard) Gastrointestinal: soft, bowel sounds, other (Discomfort with palpation) Extremities: other (No significant edema) Labs Result Diagram: 07/11/18 0558 07/11/18 0558 Results 24hrs Laboratory Tests Test 07/10/18 14:43 07/11/18 05:58 Sodium Level 126 L 127 L Potassium Level 3.7 4.1 Chloride Level 85 L 82 L Carbon Dioxide Level 31 34 H Anion Gap 10 11 Blood Urea Nitrogen 38 H 36 H Creatinine 1.37 H 1.54 H Est Glomerular Filtrat Rate mL/min 48 L 42 L Glucose Level 117 109 Calcium Level 9.3 9.5 White Blood Count 11.1 H Red Blood Count 5.82 H Hemoglobin 16.4 H Hematocrit 50.9 H Mean Corpuscular Volume 87.5 Mean Corpuscular Hemoglobin 28.2 L Mean Corpuscular Hemoglobin Concent 32.2 Red Cell Distribution Width 15.1 H Platelet Count 264 Mean Platelet Volume 10.7 H Immature Granulocytes % 0.500 H Neutrophils % 77.6 H Lymphocytes % 7.9 L Monocytes % 13.3 H Eosinophils % 0.5 Basophils % 0.2 Nucleated Red Blood Cells % 0.0 Immature Granulocytes # 0.060 H Neutrophils # 8.6 H Lymphocytes # 0.9 Monocytes # 1.5 H Eosinophils # 0.1 Basophils # 0.0 Nucleated Red Blood Cells # 0.0 Phosphorus Level 3.3 Magnesium Level 2.6 H Medications Medications Current Medications IV Flush (NS 3 ml) 3 ml PER PROTOCOL IV ; Start 07/08/18 at 00:00 Acetaminophen (Tylenol Tab) 650 mg Q6H PRN PO .PAIN 1-3 OR TEMP; Start 07/08/18 at 00:00 Acetaminophen/ Hydrocodone Bitart ([place] (5/325)) 1 tab Q6H PRN PO .PAIN 4-6 Last administered on 07/11/18 12:24; Admin Dose 1 TAB; Start 07/08/18 at 00:00 Acetaminophen/ Hydrocodone Bitart ([place] (5/325)) 2 tab Q6H PRN PO .PAIN 7-10 Last administered on 07/10/18 20:18; Admin Dose 2 TAB; Start 07/08/18 at 00:00 Heparin Sodium (Porcine) (Heparin (5000 Units/1ml)) 5,000 unit Q12 SC Last administered on 07/10/18 09:42; Admin Dose 5,000 UNIT; Start 07/08/18 at 09:00 Albuterol/ Ipratropium (Duoneb) 3 ml Q2H RESP THERAPY PRN HHN SHORTNESS OF BREATH; Start 07/08/18 at 00:00 Aspirin (Halfprin) 81 mg DAILY PO Last administered on 07/11/18 12:27; Admin D ose 81 MG; Start 07/08/18 at 09:00 Carvedilol (Coreg) 3.125 mg BID PO Last administered on 07/11/18 12:28; Admin Dose 3.125 MG; Start 07/08/18 at 09:00 Spironolactone (Aldactone) 12.5 mg DAILY PO Last administered on 07/11/18 12:27; Admin Dose 12.5 MG; Start 07/08/18 at 09:00 Atorvastatin Calcium (Lipitor) 20 mg HS PO Last administered on 07/10/18 21:19; Admin Dose 20 MG; Start 07/08/18 at 21:00 Miscellaneous Information Patients own medicat... BID@10,16 XX ; Start 07/08/18 at 10:00 Lorazepam (Ativan) 1 mg BID PRN PO ANXIETY Last administered on 07/08/18 22:30; Admin Dose 1 MG; Start 07/08/18 at 15:00 Bumetanide (Bumex) 1 mg BID DIURETICS PO Last administered on 07/09/18 06:19; Admin Dose 1 MG; Start 07/08/18 at 18:00; Status Hold Pantoprazole (Protonix Iv) 40 mg DAILY@06 IV Last administered on 07/11/18 06:28; Admin Dose 40 MG; Start 07/09/18 at 06:00 Dicyclomine HCl (Bentyl) 20 mg Q8 GTB Last administered on 07/10/18 21:20; Admin Dose 20 MG; Start 07/08/18 at 22:00 Metoclopramide HCl (Reglan) 5 mg Q6 IV Last administered on 07/11/18 06:28; Admin Dose 5 MG; Start 07/10/18 at 00:00 Polyethylene Glycol (Miralax) 17 gm DAILY PO Last administered on 07/10/18 09:43; Admin Dose 17 GM; Start 07/10/18 at 09:00 Gwyn Paris DO Jul 11, 2018 12:57
--- NOTE | 2018-07-11 13:32 | PN ---
Date/Time of Note Date/Time of Note DATE: 07/11/18 TIME: 13:22 Assessment/Plan VTE Prophylaxis Risk score (from Ns)>0 risk: 3 SCD applied (from Ns): Yes Pharmacological prophylaxis: heparin Lines/Catheters IV Catheter Type (from Nrs): Peripheral IV Urinary Cath still in place: No Assessment/Plan Assessment/Plan 1. Abdominal pain: s/p colonoscopy on 07/11/2018 with candidal esophagitis and acute gastritis, continue PPI, start diflucan 2. Chest pain, atypical. negative troponin, resolved 3. CHF, systolic, chronic, compensated 4. Cardiomyopathy with systolic dysfunction, EF of 20%: Status post AICD. Continue cardiac meds including Bumex 5. Hypertension, controlled 6. CKD: Monitor closely 7. Thickening of the bladder wall on CT scan, outpatient follow up with urology 8. Hypokalemia, corrected 9. Hyponatremia, free water restriction 10. Depression, start on lexapro 11. DVT prophylaxis: heparin Result Diagram: 07/11/18 0558 07/11/18 0558 Results 24hrs Laboratory Tests Test 07/10/18 14:43 07/11/18 05:58 Sodium Level 126 L 127 L Potassium Level 3.7 4.1 Chloride Level 85 L 82 L Carbon Dioxide Level 31 34 H Anion Gap 10 11 Blood Urea Nitrogen 38 H 36 H Creatinine 1.37 H 1.54 H Est Glomerular Filtrat Rate mL/min 48 L 42 L Glucose Level 117 109 Calcium Level 9.3 9.5 White Blood Count 11.1 H Red Blood Count 5.82 H Hemoglobin 16.4 H Hematocrit 50.9 H Mean Corpuscular Volume 87.5 Mean Corpuscular Hemoglobin 28.2 L Mean Corpuscular Hemoglobin Concent 32.2 Red Cell Distribution Width 15.1 H Platelet Count 264 Mean Platelet Volume 10.7 H Immature Granulocytes % 0.500 H Neutrophils % 77.6 H Lymphocytes % 7.9 L Monocytes % 13.3 H Eosinophils % 0.5 Basophils % 0.2 Nucleated Red Blood Cells % 0.0 Immature Granulocytes # 0.060 H Neutrophils # 8.6 H Lymphocytes # 0.9 Monocytes # 1.5 H Eosinophils # 0.1 Basophils # 0.0 Nucleated Red Blood Cells # 0.0 Phosphorus Level 3.3 Magnesium Level 2.6 H Subjective 24 Hr Interval Summary Free Text/Dictation s/p EGD today. feels depressed and fatigue all the time, lack of energy Exam/Review of Systems Exam Vitals Vital Signs Date Temp Pulse Resp B/P (MAP) Pulse Ox O2 O2 Flow FiO2 Time Delivery Rate 07/11/18 98.0 71 22 112/71 96 Room Air 12:20 (85) 07/11/18 3.0 11:38 Intake and Output 07/10/18 07/10/18 07/11/18 1515:00 23:00 07:00 IntakeIntake Total 250 ml BalanceBalance 250 ml Constitutional: alert, oriented, well developed Psych: depression Head: normocephalic, atraumatic Eyes: nl conjunctiva, EOMI, nl lids, PERRL ENMT: nl external ears & nose, nl lips & teeth, nl nasal mucosa & septum, mucosa pink and moist Neck: supple, non-tender Respiratory: clear to auscultation, normal air movement; No congested cough, No crackles/rales, No diminished breath sounds, No intercostal retraction, No labored breathing, No respirations, No tactile fremitus, No wheezing, No other Cardiovascular: regular rate and rhythm, nl pulses; No bruits, No diastolic murmur, No edema, No gallop, No irregular rhythm, No jugular venous distention (JVD), No murmurs/extra sounds, No rub, No systolic murmur, No S3, No S4, No other Gastrointestinal: soft, nl liver, spleen, non-tender Musculoskeletal: nl extremities to inspection Extremities: normal pulses; No calf tenderness, No cyanosis, No clubbing, No edema, No pitting pedal edema, No palpable cord, No tenderness, No other Neurological: RAFTSMAN II-XII intact, nl mental status, nl speech, nl strength Results Results 24hrs Laboratory Tests Test 07/10/18 14:43 07/11/18 05:58 Sodium Level 126 L 127 L Potassium Level 3.7 4.1 Chloride Level 85 L 82 L Carbon Dioxide Level 31 34 H Anion Gap 10 11 Blood Urea Nitrogen 38 H 36 H Creatinine 1.37 H 1.54 H Est Glomerular Filtrat Rate mL/min 48 L 42 L Glucose Level 117 109 Calcium Level 9.3 9.5 White Blood Count 11.1 H Red Blood Count 5.82 H Hemoglobin 16.4 H Hematocrit 50.9 H Mean Corpuscular Volume 87.5 Mean Corpuscular Hemoglobin 28.2 L Mean Corpuscular Hemoglobin Concent 32.2 Red Cell Distribution Width 15.1 H Platelet Count 264 Mean Platelet Volume 10.7 H Immature Granulocytes % 0.500 H Neutrophils % 77.6 H Lymphocytes % 7.9 L Monocytes % 13.3 H Eosinophils % 0.5 Basophils % 0.2 Nucleated Red Blood Cells % 0.0 Immature Granulocytes # 0.060 H Neutrophils # 8.6 H Lymphocytes # 0.9 Monocytes # 1.5 H Eosinophils # 0.1 Basophils # 0.0 Nucleated Red Blood Cells # 0.0 Phosphorus Level 3.3 Magnesium Level 2.6 H Medications Medication Current Medications IV Flush (NS 3 ml) 3 ml PER PROTOCOL IV ; Start 07/08/18 at 00:00 Acetaminophen (Tylenol Tab) 650 mg Q6H PRN PO .PAIN 1-3 OR TEMP; Start 07/08/18 at 00:00 Acetaminophen/ Hydrocodone Bitart ([place] (5/325)) 1 tab Q6H PRN PO .PAIN 4-6 Last administered on 07/11/18 12:24; Admin Dose 1 TAB; Start 07/08/18 at 00:00 Acetaminophen/ Hydrocodone Bitart ([place] (5/325)) 2 tab Q6H PRN PO .PAIN 7-10 Last administered on 07/10/18 20:18; Admin Dose 2 TAB; Start 07/08/18 at 00:00 Heparin Sodium (Porcine) (Heparin (5000 Units/1ml)) 5,000 unit Q12 SC Last administered on 07/10/18 09:42; Admin Dose 5,000 UNIT; Start 07/08/18 at 09:00 Albuterol/ Ipratropium (Duoneb) 3 ml Q2H RESP THERAPY PRN HHN SHORTNESS OF BREATH; Start 07/08/18 at 00:00 Aspirin (Halfprin) 81 mg DAILY PO Last administered on 07/11/18 12:27; Admin Dose 81 MG; Start 07/08/18 at 09:00 Carvedilol (Coreg) 3.125 mg BID PO Last administered on 07/11/18 12:28; Admin Dose 3.125 MG; Start 07/08/18 at 09:00 Spironolactone (Aldactone) 12.5 mg DAILY PO Last administered on 07/11/18 12:27; Admin Dose 12.5 MG; Start 07/08/18 at 09:00 Atorvastatin Calcium (Lipitor) 20 mg HS PO Last administered on 07/10/18 21:19; Admin Dose 20 MG; Start 07/08/18 at 21:00 Miscellaneous Information Patients own medicat... BID@10,16 XX ; Start 07/08/18 at 10:00 Lorazepam (Ativan) 1 mg BID PRN PO ANXIETY Last administered on 07/08/18 22:30; Admin Dose 1 MG; Start 07/08/18 at 15:00 Bumetanide (Bumex) 1 mg BID DIURETICS PO Last administered on 07/09/18 06:19; Admin Dose 1 MG; Start 07/08/18 at 18:00; Status Hold Pantoprazole (Protonix Iv) 40 mg DAILY@06 IV Last administered on 07/11/18 06:28; Admin Dose 40 MG; Start 07/09/18 at 06:00 Dicyclomine HCl (Bentyl) 20 mg Q8 GTB Last administered on 07/10/18 21:20; Ad min Dose 20 MG; Start 07/08/18 at 22:00 Metoclopramide HCl (Reglan) 5 mg Q6 IV Last administered on 07/11/18 13:03; Admin Dose 5 MG; Start 07/10/18 at 00:00 Polyethylene Glycol (Miralax) 17 gm DAILY PO Last administered on 07/10/18 09:43; Admin Dose 17 GM; Start 07/10/18 at 09:00 MARY DAMON MD Jul 11, 2018 13:32
[2018-07-11] MEDS: ESCITALOPRAM 10 MG TAB PO SCH (14:18)
[2018-07-11] MEDS ORDERED: morphine 2 MG INJ IV PRN (18:00)
[2018-07-11] MEDS: ATORVASTATIN 20 MG TAB PO SCH (21:12)
[2018-07-12] VITALS (12 sets, daily range): BP systolic 96–108; BP diastolic 56–69; PULSE 54–81; RESP 16–19
[2018-07-12] MEDS: METOCLOPRAMIDE 10 MG INJ IV SCH ×3 (05:48→17:33)
[2018-07-12] MEDS: DICYCLOMINE 10 MG CAP GTB SCH ×3 (05:49→21:00)
[2018-07-12] MEDS: PANTOPRAZOLE (EC) 40 MG TAB PO SCH (05:49)
[2018-07-12] MEDS: SPIRONOLACTONE 25 MG TAB PO SCH (08:27)
[2018-07-12] MEDS: ESCITALOPRAM 10 MG TAB PO SCH (08:27)
[2018-07-12] MEDS: FLUCONAZOLE 100 MG TAB PO SCH (08:28)
[2018-07-12] MEDS: ASPIRIN (EC) 81 MG TAB PO SCH (08:29)
[2018-07-12] MEDS: POLYETHYLENE GLYCOL 17 GM PACKET PO SCH (08:30)
[2018-07-12] MEDS: HEPARIN 5,000 UNIT/1 ML VIAL SC SCH ×2 (08:39→21:07)
--- NOTE | 2018-07-12 08:58 | PN ---
DATE: 07/12/2018 SUBJECTIVE: The patient is stable, no distress overnight. The patient's abdominal pain has been imp roving. No other events noted. OBJECTIVE: VITAL SIGNS: Blood pressure is 96/56, respirations 16, pulse 64, temperature 97.7. HEENT: Head is normocephalic. NECK: Supple. HEART: Regular rate. LUNGS: Show diminished breath sounds at the base. ABDOMEN: Soft, nontender to palpation without rebound or guarding. EXTREMITIES: Negative for clubbing, cyanosis, no edema. DERMATOLOGIC: No rashes. MUSCULOSKELETAL: No joint effusion. NEUROLOGIC: No change in exam. MEDICATIONS: The patient's medications have been reviewed. LABORATORY DATA: The laboratory data from 07/12/2018 was reviewed. ASSESSMENT AND PLAN: 1. Nonoliguric acute kidney injury with previous baseline creatinine of 1.3 . Etiology of WILEY is secondary to cardiorenal syndrome. The patient's renal function has been fluctuating but overall stable. We will continue current treatment plan. Continue low-dose diuretic therapy to maintain euv olemic status, monitor closely. 2. Hyponatremia secondary to congestive heart failure, acute kidney injury. The patient is currentl y on free water restriction. Will continue. Continue to monitor sodium levels closely. 3. Hypokalemia, improved. Continue to monitor and replete. 4. Metabolic alkalemia secondary to diuretic therapy. Will continue Diamox. 5. Mineral bone disorder. Monitor calcium phosphorus levels. 6. Hypomagnesemia. Continue to monitor and replete. 7. Chronic heart failure, systolic, with ejection fraction 20%. The patient appears euvolemic. Sanjay l continue to monitor. Will give intermittent diuretic therapy. 8. Abdominal pain. The patient is status post EGD with positive esophagitis, gastritis. Continue PP I. Continue antifungal therapy. 9. Arrhythmia, status post pacemaker placement. 10. History of pulmonary hypertension. 11. Acute respiratory failure secondary to congestive heart failure exacerbation, improved. 12. Constipation. Continue MiraLax. Dictated By: AZEEM ALTMAN/NTS Conf#: [id number] DID#: [id number] CC: EVERETT ALCANTARA MD; PIO CRAMER MD; MARY DAMON MD;*EndCC*
--- NOTE | 2018-07-12 09:05 | CONS ---
Assessment/Plan Cardiology NYHA: III Heart Failure Type: Chronic Heart Failure Type: Both Assessment/Plan Assessment/Plan (Daily) Abdominal pain Bladder abnormalities on CT scan Elevated lipase Chronic systolic congestive heart failure Severe nonischemic cardia myopathy Pulmonary hypertension Acute kidney injury History of biventricular pacemaker/ICD -Patient presents with abdominal pain, nausea and chills -She denies any chest pain or shortness of breath -No evidence of decompensated congestive heart failure at the current time -Patient undergoing GI workup- -Diuretics as per nephrology Consultation Date/Type/Reason Admit Date/Time Jul 07, 2018 at 20:09 Initial Consult Date 07/08/18 Type of Consult Cardiology Requesting Provider: PIO CRAMER MD Date/Time of Note DATE: 07/12/18 TIME: 09:04 24 HR Interval Summary Free Text/Dictation The patient wtih contindu nausea Exam/Review of Systems Vital Signs Vitals Vital Signs Date Temp Pulse Resp B/P (MAP) Pulse Ox O2 O2 Flow FiO2 Time Delivery Rate 07/12/18 97.7 54 16 96/56 (69) 99 08:08 07/11/18 Room Air 16:16 07/11/18 3.0 11:38 Intake and Output 07/11/18 07/11/18 07/12/18 1515:00 23:00 07:00 IntakeIntake Total 300 ml 480 ml 400 ml BalanceBalance 300 ml 480 ml 400 ml Labs Result Diagram: 07/12/18 0432 07/12/18 0456 Results 24hrs Laboratory Tests Test 07/12/18 04:32 07/12/18 04:56 White Blood Count 10.8 Red Blood Count 5.50 H Hemoglobin 15.4 Hematocrit 48.0 H Mean Corpuscular Volume 87.3 Mean Corpuscular Hemoglobin 28.0 L Mean Corpuscular Hemoglobin Concent 32.1 Red Cell Distribution Width 14.8 H Platelet Count 222 Mean Platelet Volume 10.6 H Immature Granulocytes % 0.600 H Neutrophils % 81.3 H Lymphocytes % 7.1 L Monocytes % 10.1 Eosinophils % 0.7 Basophils % 0.2 Nucleated Red Blood Cells % 0.0 Immature Granulocytes # 0.060 H Neutrophils # 8.8 H Lymphocytes # 0.8 Monocytes # 1.1 H Eosinophils # 0.1 Basophils # 0.0 Nucleated Red Blood Cells # 0.0 Sodium Level 128 L Potassium Level 3.6 Chloride Level 87 L Carbon Dioxide Level 30 Anion Gap 11 Blood Urea Nitrogen 27 H Creatinine 1.39 H Est Glomerular Filtrat Rate mL/min 47 L Glucose Level 123 Calcium Level 9.2 Phosphorus Level 3.3 Magnesium Level 2.5 Medications Medications Current Medications IV Flush (NS 3 ml) 3 ml PER PROTOCOL IV ; Start 07/08/18 at 00:00 Acetaminophen (Tylenol Tab) 650 mg Q6H PRN PO .PAIN 1-3 OR TEMP; Start 07/08/18 at 00:00 Acetaminophen/ Hydrocodone Bitart ([place] (5/325)) 1 tab Q6H PRN PO .PAIN 4-6 Last administered on 07/11/18 12:24; Admin Dose 1 TAB; Start 07/08/18 at 00:00 Heparin Sodium (Porcine) (Heparin (5000 Units/1ml)) 5,000 unit Q12 SC Last administered on 07/12/18 08:39; Admin Dose 5,000 UNIT; Start 07/08/18 at 09:00 Albuterol/ Ipratropium (Duoneb) 3 ml Q2H RESP THERAPY PRN HHN SHORTNESS OF BREATH; Start 07/08/18 at 00:00 Aspirin (Halfprin) 81 mg DAILY PO Last administered on 07/12/18 08:29; Admin Dose 81 MG; Start 07/08/18 at 09:00 Carvedilol (Coreg) 3.125 mg BID PO Last administered on 07/12/18 08:29; Admin Dose 3.125 MG; Start 07/08/18 at 09:00 Spironolactone (Aldactone) 12.5 mg DAILY PO Last administered on 07/12/18 08:27; Admin Dose 12.5 MG; Start 07/08/18 at 09:00 Atorvastatin Calcium (Lipitor) 20 mg HS PO Last administered on 07/11/18 21:12; Admin Dose 20 MG; Start 07/08/18 at 21:00 Miscellaneous Information Patients own medicat... BID@10,16 XX ; Start 07/08/18 at 10:00 Lorazepam (Ativan) 1 mg BID PRN PO ANXIETY Last administered on 07/08/18at 22:30; Admin Dose 1 MG; Start 07/08/18 at 15:00 Bumetanide (Bumex) 1 mg BID DIURETICS PO Last administered on 07/09/18 06:19; Admin Dose 1 MG; Start 07/08/18 at 18:00; Status Hold Dicyclomine HCl (Bentyl) 20 mg Q8 GTB Last administered on 07/12/18 05:49; Admin Dose 20 MG; Start 07/08/18 at 22:00 Metoclopramide HCl (Reglan) 5 mg Q6 IV Last administered on 07/12/18 05:48; Admin Dose 5 MG; Start 07/10/18 at 00:00 Polyethylene Glycol (Miralax) 17 gm DAILY PO Last administered on 07/12/18 08:30; Admin Dose 17 GM; Start 07/10/18 at 09:00 Pantoprazole (Protonix Tab) 40 mg DAILY@06 PO Last administered on 07/12/18 05:49; Admin Dose 40 MG; Start 07/12/18 at 06:00 Fluconazole (Diflucan) 100 mg DAILY PO Last administered on 07/12/18 08:28; Admin Dose 100 MG; Start 07/12/18 at 09:00 Escitalopram Oxalate (Lexapro) 5 mg DAILY PO Last administered on 07/12/18 08:27; Admin Dose 5 MG; Start 07/11/18 at 14:00 Morphine Sulfate (morphine) 2 mg Q6H PRN IV SEVERE PAIN LEVEL 7-10 Last administered on 07/11/18 18:03; Admin Dose 2 MG; Start 07/11/18 at 18:00 YAKOV SHIELDS MD Jul 12, 2018 09:05
--- NOTE | 2018-07-12 13:27 | PN ---
Date/Time of Note Date/Time of Note DATE: 07/12/18 TIME: 13:27 Assessment/Plan VTE Prophylaxis Risk score (from Nsg)>0 risk: 3 SCD applied (from Nsg): Yes Pharmacological prophylaxis: heparin Lines/Catheters IV Catheter Type (from Nrsg): Saline Lock Urinary Cath still in place: No Assessment/Plan Hospital Course SUBJECTIVE: Sitting up in bed, depressed, having poor oral intake secondary to ongoing nausea and generalized abdominal pain. No vomiting, fevers, chills, or diarrhea. OBJECTIVE: Vital signs-see below PHYSICAL EXAM: Constitutional: Well-developed -[place]ian female, with generalized weakness HEENT: Head atraumatic and normocephalic. Eyes: Extraocular muscles intact. Anicteric sclerae. Pupils equal bilaterally, reactive to light. NECK: Supple without lymph node. CHEST: Clear and good breath sounds equally. No wheezing. No rhonchi. HEART: S1, S2. Regular rate and rhythm. ABDOMEN: +Generaliazed abd pain. Soft, no rebound tenderness. Bowel sounds were present. EXTREMITIES: Full range of motion in all the extremities. No cyanosis, clubbing or edema. NEUROLOGIC: Alert and oriented x3. No focal deficit. No sensory deficit. PSYCHOSOCIAL: In a good mood. No signs of depression. INTEGUMENTARY: Moist mucous membranes. Good skin turgor, intact. ASSESSMENT AND PLAN: 58-year-old female with history of severe cardiomyopathy, systolic CHF, ICD placed, pulmonary hypertension,admitted with nausea, abdominal pain.. 1. Abdominal pain/nausea/vomiting. -Status post EGD 07/11/2018=> Janette esophagitis/acute gastritis without bleeding. -On PPI/Diflucan therapy. -Pending pathology report -Follow-up GI recommendations. 2. Chronic systolic congestive heart failure. -Compensated. Status post BiVICD placed -Continue beta-blockers/Aldactone/Bumex 3. Nonischemic cardiomyopathy -Management as #2. 4. Pulmonary hypertension. -No acute issues. Outpatient follow-up. 5. Questionable bladder abnormalities on CT scan. -Patient may have cystitis for which I will give 1 dose of fosfomycin and will have Urology follow-up. 6. Acute kidney injury on chronic kidney disease. -Appreciate nephrology recommendations. Creatinine improving. 7. Hyponatremia, likely secondary to congestive heart failure. -On free water restriction. Nephrology managing. 8. Possible depressive disorders. -On Lexapro. I will also request official psychiatric evaluation. DVT prophylaxis: Heparin PUD prophylaxis: Protonix Disposition: Continue current management. Continue supportive care. Follow-up GI recommendations. Patient was seen in collaboration with Dr. Bray. Result Diagram: 07/12/18 0432 07/12/18 0456 Results 24hrs Laboratory Tests Test 07/12/18 04:32 07/12/18 04:56 White Blood Count 10.8 Red Blood Count 5.50 H Hemoglobin 15.4 Hematocrit 48.0 H Mean Corpuscular Volume 87.3 Mean Corpuscular Hemoglobin 28.0 L Mean Corpuscular Hemoglobin Concent 32.1 Red Cell Distribution Width 14.8 H Platelet Count 222 Mean Platelet Volume 10.6 H Immature Granulocytes % 0.600 H Neutrophils % 81.3 H Lymphocytes % 7.1 L Monocytes % 10.1 Eosinophils % 0.7 Basophils % 0.2 Nucleated Red Blood Cells % 0.0 Immature Granulocytes # 0.060 H Neutrophils # 8.8 H Lymphocytes # 0.8 Monocytes # 1.1 H Eosinophils # 0.1 Basophils # 0.0 Nucleated Red Blood Cells # 0.0 Sodium Level 128 L Potassium Level 3.6 Chloride Level 87 L Carbon Dioxide Level 30 Anion Gap 11 Blood Urea Nitrogen 27 H Creatinine 1.39 H Est Glomerular Filtrat Rate mL/min 47 L Glucose Level 123 Calcium Level 9.2 Phosphorus Level 3.3 Magnesium Level 2.5 Exam/Review of Systems Exam Vitals Vital Signs Date Temp Pulse Resp B/P (MAP) Pulse Ox O2 O2 Flow FiO2 Time Delivery Rate 07/12/18 98.2 70 16 101/67 100 11:01 (78) 07/11/18 Room Air 16:16 07/11/18 3.0 11:38 Intake and Output 07/11/18 07/11/18 07/12/18 1515:00 23:00 07:00 IntakeIntake Total 300 ml 480 ml 400 ml BalanceBalance 300 ml 480 ml 400 ml Results Results 24hrs Laboratory Tests Test 07/12/18 04:32 07/12/18 04:56 White Blood Count 10.8 Red Blood Count 5.50 H Hemoglobin 15.4 Hematocrit 48.0 H Mean Corpuscular Volume 87.3 Mean Corpuscular Hemoglobin 28.0 L Mean Corpuscular Hemoglobin Concent 32.1 Red Cell Distribution Width 14.8 H Platelet Count 222 Mean Platelet Volume 10.6 H Immature Granulocytes % 0.600 H Neutrophils % 81.3 H Lymphocytes % 7.1 L Monocytes % 10.1 Eosinophils % 0.7 Basophils % 0.2 Nucleated Red Blood Cells % 0.0 Immature Granulocytes # 0.060 H Neutrophils # 8.8 H Lymphocytes # 0.8 Monocytes # 1.1 H Eosinophils # 0.1 Basophils # 0.0 Nucleated Red Blood Cells # 0.0 Sodium Level 128 L Potassium Level 3.6 Chloride Level 87 L Carbon Dioxide Level 30 Anion Gap 11 Blood Urea Nitrogen 27 H Creatinine 1.39 H Est Glomerular Filtrat Rate mL/min 47 L Glucose Level 123 Calcium Level 9.2 Phosphorus Level 3.3 Magnesium Level 2.5 Medications Medication Current Medications IV Flush (NS 3 ml) 3 ml PER PROTOCOL IV ; Start 07/08/18 at 00:00 Acetaminophen (Tylenol Tab) 650 mg Q6H PRN PO .PAIN 1-3 OR TEMP; Start 07/08/18 at 00:00 Acetaminophen/ Hydrocodone Bitart ([place] (5/325)) 1 tab Q6H PRN PO .PAIN 4-6 Last administered on 07/11/18at 12:24; Admin Dose 1 TAB; Start 07/08/18 at 00:00 Heparin Sodium (Porcine) (Heparin (5000 Units/1ml)) 5,000 unit Q12 SC Last administered on 07/12/18 08:39; Admin Dose 5,000 UNIT; Start 07/08/18 at 09:00 Albuterol/ Ipratropium (Duoneb) 3 ml Q2H RESP THERAPY PRN HHN SHORTNESS OF BREATH; Start 07/08/18 at 00:00 Aspirin (Halfprin) 81 mg DAILY PO Last administered on 07/12/18 08:29; Admin Dose 81 MG; Start 07/08/18 at 09:00 Carvedilol (Coreg) 3.125 mg BID PO Last administered on 07/12/18 08:29; Admin Dose 3.125 MG; Start 07/08/18 at 09:00 Spironolactone (Aldactone) 12.5 mg DAILY PO Last administered on 07/12/18 08:27; Admin Dose 12.5 MG; Start 07/08/18 at 09:00 Atorvastatin Calcium (Lipitor) 20 mg HS PO Last administered on 07/11/18 21:12; Admin Dose 20 MG; Start 07/08/18 at 21:00 Miscellaneous Information Patients own medicat... BID@10,16 XX ; Start 07/08/18 at 10:00 Lorazepam (Ativan) 1 mg BID PRN PO ANXIETY Last administered on 07/08/18 22:30; Admin Dose 1 MG; Start 07/08/18 at 15:00 Bumetanide (Bumex) 1 mg BID DIURETICS PO Last administered on 07/09/18 06:19; Admin Dose 1 MG; Start 07/08/18 at 18:00; Status Hold Dicyclomine HCl (Bentyl) 20 mg Q8 GTB Last administered on 07/12/18 05:49; Admin Dose 20 MG; Start 07/08/18 at 22:00 Metoclopramide HCl (Reglan) 5 mg Q6 IV Last administered on 07/12/18 12:03; Admin Dose 5 MG; Start 07/10/18 at 00:00 Polyethylene Glycol (Miralax) 17 gm DAILY PO Last administered on 07/12/18 08:30; Admin Dose 17 GM; Start 07/10/18 at 09:00 Pantoprazole (Protonix Tab) 40 mg DAILY@06 PO Last administered on 07/12/18 05:49; Admin Dose 40 MG; Start 07/12/18 at 06:00 Fluconazole (Diflucan) 100 mg DAILY PO Last administered on 07/12/18 08:28; Admin Dose 100 MG; Start 07/12/18 at 09:00 Escitalopram Oxalate (Lexapro) 5 mg DAILY PO Last administered on 07/12/18 08:27; Admin Dose 5 MG; Start 07/11/18 at 14:00 Morphine Sulfate (morphine) 2 mg Q6H PRN IV SEVERE PAIN LEVEL 7-10 Last administered on 07/11/18 18:03; Admin Dose 2 MG; Start 07/11/18 at 18:00 JODY RODNEY NP Jul 12, 2018 13:27
--- NOTE | 2018-07-12 14:10 | CONS ---
Assessment/Plan Assessment/Plan Assessment/Plan (Daily) Assessment/Plan Assessment/Plan (Daily) IMPRESSION: 1. Abdominal pain with emesis, rule out peptic ulcer disease or gastritis, rule out ischemic bowel. 2. Ischemic cardiomyopathy with ejection fraction of 50%. 3. Hypertension. 4. Chronic kidney disease. 5. 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 6. Pulmonary hypertension. 7. AICD. 8. Mild elevation of lipase with normal pancreas and a CAT scan. Plan We will start the patient on Reglan. Case was discussed with the patient and also with the father Continue Diflucan and antidepressant medication Consultation Date/Type/Reason Admit Date/Time Jul 07, 2018 at 20:09 Initial Consult Date 07/08/18 Requesting Provider: PIO CRAMER MD Date/Time of Note DATE: 07/12/18 TIME: 14:09 24 HR Interval Summary Free Text/Dictation Patient does complains of nausea and abdominal pain. It is reduced in intensity Constitutional: improved Exam/Review of Systems Exam Vitals Vital Signs Date Temp Pulse Resp B/P (MAP) Pulse Ox O2 O2 Flow FiO2 Time Delivery Rate 07/12/18 98.2 70 16 101/67 100 11:01 (78) 07/11/18 Room Air 16:16 07/11/18 3.0 11:38 Intake and Output 07/11/18 07/11/18 07/12/18 1515:00 23:00 07:00 IntakeIntake Total 300 ml 480 ml 400 ml BalanceBalance 300 ml 480 ml 400 ml Constitutional: alert, oriented, well developed Psych: no complaints, nl mood/affect Head: normocephalic, atraumatic Eyes: nl conjunctiva, EOMI, nl lids, nl sclera, PERRL ENMT: nl external ears & nose, nl lips & teeth, nl nasal mucosa & septum Neck: supple, non-tender Respiratory: clear to auscultation, normal air movement Cardiovascular: regular rate and rhythm, nl pulses Gastrointestinal: soft, nl liver, spleen, non-tender Musculoskeletal: nl extremities to inspection, nl gait and stance Extremities: normal pulses Neurological: CHEF GERMAN II-XII intact, nl mental status, nl speech, nl strength Skin: nl turgor; No rash or lesions Lymph: nl lymph nodes Results Result Diagram: 07/12/18 0432 07/12/18 0456 Results 24hrs Laboratory Tests Test 07/12/18 04:32 07/12/18 04:56 White Blood Count 10.8 Red Blood Count 5.50 H Hemoglobin 15.4 Hematocrit 48.0 H Mean Corpuscular Volume 87.3 Mean Corpuscular Hemoglobin 28.0 L Mean Corpuscular Hemoglobin Concent 32.1 Red Cell Distribution Width 14.8 H Platelet Count 222 Mean Platelet Volume 10.6 H Immature Granulocytes % 0.600 H Neutrophils % 81.3 H Lymphocytes % 7.1 L Monocytes % 10.1 Eosinophils % 0.7 Basophils % 0.2 Nucleated Red Blood Cells % 0.0 Immature Granulocytes # 0.060 H Neutrophils # 8.8 H Lymphocytes # 0.8 Monocytes # 1.1 H Eosinophils # 0.1 Basophils # 0.0 Nucleated Red Blood Cells # 0.0 Sodium Level 128 L Potassium Level 3.6 Chloride Level 87 L Carbon Dioxide Level 30 Anion Gap 11 Blood Urea Nitrogen 27 H Creatinine 1.39 H Est Glomerular Filtrat Rate mL/min 47 L Glucose Level 123 Calcium Level 9.2 Phosphorus Level 3.3 Magnesium Level 2.5 Medications Medication Current Medications IV Flush (NS 3 ml) 3 ml PER PROTOCOL IV ; Start 07/08/18 at 00:00 Acetaminophen (Tylenol Tab) 650 mg Q6H PRN PO .PAIN 1-3 OR TEMP; Start 07/08/18 at 00:00 Acetaminophen/ Hydrocodone Bitart ([place] (5/325)) 1 tab Q6H PRN PO .PAIN 4-6 Last administered on 07/11/18at 12:24; Admin Dose 1 TAB; Start 07/08/18 at 00:00 Heparin Sodium (Porcine) (Heparin (5000 Units/1ml)) 5,000 unit Q12 SC Last administered on 07/12/18at 08:39; Admin Dose 5,000 UNIT; Start 07/08/18 at 09:00 Albuterol/ Ipratropium (Duoneb) 3 ml Q2H RESP THERAPY PRN HHN SHORTNESS OF BREATH; Start 07/08/18 at 00:00 Aspirin (Halfprin) 81 mg DAILY PO Last administered on 07/12/18at 08:29; Admin Dose 81 MG; Start 07/08/18 at 09:00 Carvedilol (Coreg) 3.125 mg BID PO Last administered on 07/12/18 08:29; Admin Dose 3.125 MG; Start 07/08/18 at 09:00 Spironolactone (Aldactone) 12.5 mg DAILY PO Last administered on 07/12/18 08:27; Admin Dose 12.5 MG; Start 07/08/18 at 09:00 Atorvastatin Calcium (Lipitor) 20 mg HS PO Last administered on 07/11/18 21:12; Admin Dose 20 MG; Start 07/08/18 at 21:00 Miscellaneous Information Patients own medicat... BID@10,16 XX ; Start 07/08/18 at 10:00 Lorazepam (Ativan) 1 mg BID PRN PO ANXIETY Last administered on 07/08/18 22:30; Admin Dose 1 MG; Start 07/08/18 at 15:00 Bumetanide (Bumex) 1 mg BID DIURETICS PO Last administered on 07/09/18 06:19; Admin Dose 1 MG; Start 07/08/18 at 18:00; Status Hold Dicyclomine HCl (Bentyl) 20 mg Q8 GTB Last administered on 07/12/18 05:49; Admin Dose 20 MG; Start 07/08/18 at 22:00 Metoclopramide HCl (Reglan) 5 mg Q6 IV Last administered on 07/12/18 12:03; Admin Dose 5 MG; Start 07/10/18 at 00:00 Polyethylene Glycol (Miralax) 17 gm DAILY PO Last administered on 07/12/18 08:30; Admin Dose 17 GM; Start 07/10/18 at 09:00 Pantoprazole (Protonix Tab) 40 mg DAILY@06 PO Last administered on 07/12/18 05:49; Admin Dose 40 MG; Start 07/12/18 at 06:00 Fluconazole (Diflucan) 100 mg DAILY PO Last administered on 07/12/18 08:28; Admin Dose 100 MG; Start 07/12/18 at 09:00 Escitalopram Oxalate (Lexapro) 5 mg DAILY PO Last administered on 07/12/18 08:27; Admin Dose 5 MG; Start 07/11/18 at 14:00 Morphine Sulfate (morphine) 2 mg Q6H PRN IV SEVERE PAIN LEVEL 7-10 Last administered on 07/11/18 18:03; Admin Dose 2 MG; Start 07/11/18 at 18:00 Fosfomycin Tromethamine (Monurol) 3 gm ONCE ONCE PO ; Start 07/12/18 at 14:30; Stop 07/12/18 at 14:31 ASHELY LOO MD Jul 12, 2018 14:10
[2018-07-12] MEDS ORDERED: FOSFOMYCIN 3 GM PACKET PO ONE (14:30)
[2018-07-12] MEDS ORDERED: ONDANSETRON 4 MG INJ IV PRN (14:55)
[2018-07-12] MEDS: HYDROCODONE/APAP (5/325) TAB PO PRN ×2 (15:07→22:40)
--- NOTE | 2018-07-12 18:59 | CONS ---
Consult Date/Type/Reason Admit Date/Time Jul 07, 2018 at 20:09 Initial Consult Date 07/08/18 Type of Consultation: Urology Reason for Consultation Thick bladder wall Requesting Provider: PIO CRAMER MD Date/Time of Note DATE: 07/12/18 TIME: 18:56 Subjective The patient denies any dysuria. She denies any gross hematuria. Objective Vitals Vital Signs Date Temp Pulse Resp B/P (MAP) Pulse Ox O2 O2 Flow FiO2 Time Delivery Rate 07/12/18 70 16:00 07/12/18 98.8 16 101/69 99 15:15 (80) 07/11/18 Room Air 16:16 07/11/18 3.0 11:38 Intake and Output 07/11/18 07/11/18 07/12/18 1515:00 23:00 07:00 IntakeIntake Total 300 ml 480 ml 400 ml BalanceBalance 300 ml 480 ml 400 ml Results/Medications Result Diagram: 07/12/18 0432 07/12/18 0456 Results 24 hrs Laboratory Tests Test 07/12/18 04:32 07/12/18 04:56 White Blood Count 10.8 Red Blood Count 5.50 H Hemoglobin 15.4 Hematocrit 48.0 H Mean Corpuscular Volume 87.3 Mean Corpuscular Hemoglobin 28.0 L Mean Corpuscular Hemoglobin Concent 32.1 Red Cell Distribution Width 14.8 H Platelet Count 222 Mean Platelet Volume 10.6 H Immature Granulocytes % 0.600 H Neutrophils % 81.3 H Lymphocytes % 7.1 L Monocytes % 10.1 Eosinophils % 0.7 Basophils % 0.2 Nucleated Red Blood Cells % 0.0 Immature Granulocytes # 0.060 H Neutrophils # 8.8 H Lymphocytes # 0.8 Monocytes # 1.1 H Eosinophils # 0.1 Basophils # 0.0 Nucleated Red Blood Cells # 0.0 Sodium Level 128 L Potassium Level 3.6 Chloride Level 87 L Carbon Dioxide Level 30 Anion Gap 11 Blood Urea Nitrogen 27 H Creatinine 1.39 H Est Glomerular Filtrat Rate mL/min 47 L Glucose Level 123 Calcium Level 9.2 Phosphorus Level 3.3 Magnesium Level 2.5 Home Meds Active Scripts [Work Note] No Conflict Check This is to certify that the patient was admitted to [facility] from 06/30/2018 to 07/03/2018. She can return back to work on 07/07/2018 with no restrictions. Prov:GERARDO JOHN [employer] 07/03/18 Reported Medications Methylprednisolone* (Medrol* DOSE PACK) 4 Mg/Dose-Pack Tab.ds.pk, 4 MG PO . DIRECTED, PACKET Currently on last tablet of third day 07/07/18 Amoxicillin Trihydrate (Amoxicillin) 500 Mg Tablet, 500 MG PO Q8, #30 TAB 07/07/18 Sacubitril/Valsartan (Entresto 49 mg-51 mg Tablet) 1 Each Tablet, 1 TAB PO BID, TAB 06/30/18 Spironolactone* (Aldactone*) 25 Mg Tablet, 12.5 MG PO DAILY, #30 TAB 06/30/18 Lorazepam* (Lorazepam*) 0.5 Mg Tablet, 0.5 MG PO BID PRN for ANXIETY, TAB 01/07/18 Aspirin (Low Dose Aspirin) 81 Mg Tablet.dr, 81 MG PO DAILY, #30 TAB 01/07/18 Bumetanide* (Bumetanide*) 1 Mg Tablet, 2 MG PO BID, TAB 01/07/18 Carvedilol* (Carvedilol*) 3.125 Mg Tablet, 3.125 MG PO BID, #60 TAB 01/07/18 Medications Current Medications IV Flush (NS 3 ml) 3 ml PER PROTOCOL IV ; Start 07/08/18 at 00:00 Acetaminophen (Tylenol Tab) 650 mg Q6H PRN PO .PAIN 1-3 OR TEMP; Start 07/08/18 at 00:00 Acetaminophen/ Hydrocodone Bitart ([place] (5/325)) 1 tab Q6H PRN PO .PAIN 4-6 Last administered on 07/12/18at 15:07; Admin Dose 1 TAB; Start 07/08/18 at 00:00 Heparin Sodium (Porcine) (Heparin (5000 Units/1ml)) 5,000 unit Q12 SC Last administered on 07/12/18at 08:39; Admin Dose 5,000 UNIT; Start 07/08/18 at 09:00 Albuterol/ Ipratropium (Duoneb) 3 ml Q2H RESP THERAPY PRN HHN SHORTNESS OF BREATH; Start 07/08/18 at 00:00 Aspirin (Halfprin) 81 mg DAILY PO Last administered on 07/12/18at 08:29; Admin Dose 81 MG; Start 07/08/18 at 09:00 Carvedilol (Coreg) 3.125 mg BID PO Last administered on 07/12/18 08:29; Admin Dose 3.125 MG; Start 07/08/18 at 09:00 Spironolactone (Aldactone) 12.5 mg DAILY PO Last administered on 07/12/18 08:27; Admin Dose 12.5 MG; Start 07/08/18 at 09:00 Atorvastatin Calcium (Lipitor) 20 mg HS PO Last administered on 07/11/18 21:12; Admin Dose 20 MG; Start 07/08/18 at 21:00 Miscellaneous Information Patients own medicat... BID@10,16 XX ; Start 07/08/18 at 10:00 Lorazepam (Ativan) 1 mg BID PRN PO ANXIETY Last administered on 07/08/18 22:30; Admin Dose 1 MG; Start 07/08/18 at 15:00 Bumetanide (Bumex) 1 mg BID DIURETICS PO Last administered on 07/09/18 06:19; Admin Dose 1 MG; Start 07/08/18 at 18:00; Status Hold Dicyclomine HCl (Bentyl) 20 mg Q8 GTB Last administered on 07/12/18 15:32; Admin Dose 20 MG; Start 07/08/18 at 22:00 Metoclopramide HCl (Reglan) 5 mg Q6 IV Last administered on 07/12/18 17:33; Admin Dose 5 MG; Start 07/10/18 at 00:00 Polyethylene Glycol (Miralax) 17 gm DAILY PO Last administered on 07/12/18 08:30; Admin Dose 17 GM; Start 07/10/18 at 09:00 Pantoprazole (Protonix Tab) 40 mg DAILY@06 PO Last administered on 07/12/18 05:49; Admin Dose 40 MG; Start 07/12/18 at 06:00 Fluconazole (Diflucan) 100 mg DAILY PO Last administered on 07/12/18 08:28; Admin Dose 100 MG; Start 07/12/18 at 09:00 Escitalopram Oxalate (Lexapro) 5 mg DAILY PO Last administered on 07/12/18 08:27; Admin Dose 5 MG; Start 07/11/18 at 14:00 Morphine Sulfate (morphine) 2 mg Q6H PRN IV SEVERE PAIN LEVEL 7-10 Last administered on 07/11/18at 18:03; Admin Dose 2 MG; Start 07/11/18 at 18:00 Ondansetron HCl (Zofran Inj) 4 mg Q6H PRN IV NAUSEA AND/OR VOMITING; Start 07/12/18 at 14:55 Assessment/Plan Hospital Course (Demo Recall) 58-year-old female has a history of hypertension, chronic kidney disease, cardiomyopathy with systolic dysfunction with ejection fraction of 20%. She has AICD. She presented to the ER complaining of chest pain and abdominal pain. Chest pain is mainly localized in the mid chest and also slightly left-sided. Abdominal pain is mainly periumbilical more on the left side of the umbilicus. She reported nausea but no vomiting. Denied fever or chills. She was just discharged from here 5 days ago after she was admitted for CHF exacerbation Upon admission she underwent a CT scan of the abdomen and pelvis and that showed: No evidence of urolithiasis, obstructive uropathy, diverticulitis or appendicitis. Cardiomegaly. Vascular calcifications. Mild interstitial edema. Question mild eccentric thickening right lateral and posterior wall urinary bl adder. Suggest cystoscopic correlation. Osteoarthritis right hip joint Therefore a urological consultation was requested. The patient denies any prior history of gross hematuria. There is no dysuria, no urgency and no urgency incontinence The patient does have pain to the left side of the umbilicus. I do not think her pain is related to her urinary system. I did discuss with the patient doing a cystoscopy and that would be done in the office. I have given her a prescrip tion with my name and address and phone number for her to call and make an appointment. I explained to her the reason for the cystoscopy and I had her repeat what I told her to make sure that she understood and she did. Her treating nurse was with me in the room and witnessed the conversation. EVERETT ALCANTARA MD Jul 12, 2018 18:59
[2018-07-12] MEDS: ATORVASTATIN 20 MG TAB PO SCH (21:00)
[2018-07-13] VITALS (11 sets, daily range): BP systolic 95–108; BP diastolic 57–71; PULSE 69–81; RESP 17–20
[2018-07-13] MEDS: METOCLOPRAMIDE 10 MG INJ IV SCH ×4 (00:05→18:44)
[2018-07-13] MEDS: PANTOPRAZOLE (EC) 40 MG TAB PO SCH (05:30)
[2018-07-13] MEDS: DICYCLOMINE 10 MG CAP GTB SCH (05:30)
[2018-07-13] MEDS ORDERED: POTASSIUM CHLORIDE (SR) 20 MEQ TAB PO STA (08:14)
--- NOTE | 2018-07-13 08:30 | PN ---
DATE: 07/13/2018 SUBJECTIVE: The patient is feeling better. The patient states her abdominal pain has been improving . No other acute events noted. No hemoptysis, hematemesis or hematochezia. OBJECTIVE: VITAL SIGNS: Blood pressure is 106/71, respirations 20, pulse 70, temperature 98.8. HEENT: Head is normocephalic. NECK: Supple. HEART: Regular rate. LUNGS: Show diminished breath sounds at the base. ABDOMEN: Soft, nontender to palpation, no rebound or guarding. EXTREMITIES: Negative for clubbing, cyanosis, no edema. DERMATOLOGIC: No rashes. MUSCULOSKELETAL: No joint effusion. NEUROLOGIC: No change in exam. MEDICATIONS: Reviewed. LABORATORY DATA: From 07/13/2018 was reviewed. ASSESSMENT AND PLAN: 1. Nonoliguric acute kidney injury with previous baseline creatinine of around 1.3 mg/dL. Etiology of acute kidney injury is secondary to cardiorenal syndrome. The patient's renal function has been f luctuating, but overall stable. Continue current treatment plan. Continue intermittent diuretic the rapy to maintain euvolemic status. 2. Hypernatremia secondary to congestive heart failure, acute kidney injury. The patient remains on free water restriction. We will continue. 3. Hypokalemia. Continue to monitor and replete. 4. Metabolic alkalemia secondary to diuretic therapy, improved. We will give intermittent Diamox as needed. 5. Mineral bone disorder, monitor calcium and phosphorus levels. 6. Hypomagnesemia. Continue to monitor and replete. 7. Congestive heart failure with systolic ejection fraction of 20%. The patient appears euvolemic. Continue to monitor. Continue low-dose diuretic therapy to maintain euvolemic status. 8. Abdominal pain. The patient is status post EGD with positive esophagitis, gastritis. Continue p roton pump inhibitor. 9. Arrhythmia, status post pacemaker placement. 10. History of pulmonary hypertension. 11. Acute respiratory failure secondary to congestive heart failure exacerbation, improved. 12. Constipation. Continue MiraLax. Dictated By: AZEEM BERNARD DO NR/NTS Conf#: [id number] DID#: [id number] CC: PIO CRAMER MD; MARY DAMON MD; EVERETT ALCANTARA MD;*EndCC*
[2018-07-13] MEDS: ESCITALOPRAM 10 MG TAB PO SCH (08:58)
[2018-07-13] MEDS: FLUCONAZOLE 100 MG TAB PO SCH (08:58)
[2018-07-13] MEDS: SPIRONOLACTONE 25 MG TAB PO SCH (08:58)
[2018-07-13] MEDS: ASPIRIN (EC) 81 MG TAB PO SCH (08:58)
[2018-07-13] MEDS: BUMETANIDE 1 MG TAB PO SCH (08:59)
[2018-07-13] MEDS: HYDROCODONE/APAP (5/325) TAB PO PRN (09:01)
[2018-07-13] MEDS: POLYETHYLENE GLYCOL 17 GM PACKET PO SCH (09:02)
[2018-07-13] MEDS: HEPARIN 5,000 UNIT/1 ML VIAL SC SCH ×2 (09:13→21:09)
[2018-07-13] MEDS ORDERED: SENNA TAB PO PRN (09:30)
[2018-07-13] MEDS ORDERED: DOCUSATE SODIUM 100 MG CAP PO PRN (09:30)
--- NOTE | 2018-07-13 09:39 | PN ---
Date/Time of Note Date/Time of Note DATE: 07/13/18 TIME: 09:36 Assessment/Plan VTE Prophylaxis Risk score (from Ns)>0 risk: 2 SCD applied (from Ns): No SCD contraindicated: other Pharmacological prophylaxis: heparin Lines/Catheters IV [facility] Type [facility]from [facility] Saline Lock Urinary Cath still in place: No Assessment/Plan Hospital Course SUBJECTIVE: Today nausea and abdominal pain is slightly better. Patient reports constipation and her last bowel movement was a week ago. OBJECTIVE: Vital signs-see below PHYSICAL EXAM: Constitutional: Well-developed -[place] female, with generalized weakness HEENT: Head atraumatic and normocephalic. Eyes: Extraocular muscles intact. Anicteric sclerae. Pupils equal bilaterally, reactive to light. NECK: Supple without lymph node. CHEST: Clear and good breath sounds equally. No wheezing. No rhonchi. HEART: S1, S2. Regular rate and rhythm. ABDOMEN: Generalized tenderness to lower abdomen. No rebound tenderness. Soft, no rebound tenderness. Bowel sounds were present. EXTREMITIES: Full range of motion in all the extremities. No cyanosis, clubbing or edema. NEUROLOGIC: Alert and oriented x3. No focal deficit. No sensory deficit. PSYCHOSOCIAL: Depressed. INTEGUMENTARY: Moist mucous membranes. Good skin turgor, intact. ASSESSMENT AND PLAN: 58-year-old female with history of severe cardiomyopathy, systolic CHF, ICD placed, pulmonary hypertension,admitted with nausea, abdominal pain.. 1. Abdominal pain/nausea/vomiting. -Status post EGD 07/11/2018=> Janette esophagitis/acute gastritis without ble eding. -On PPI/Diflucan therapy. -Pending pathology report -Follow-up GI recommendations. 2. Chronic systolic congestive heart failure. -Compensated. Status post BiVICD placed -Continue beta-blockers/Aldactone/Bumex 3. Nonischemic cardiomyopathy -Management as #2. 4. Pulmonary hypertension. -No acute issues. Outpatient follow-up. 5. Questionable bladder abnormalities on CT scan. -Appreciate urology recommendation who advised outpatient cystoscopy after discharge. 6. Acute kidney injury on chronic kidney disease. -Appreciate nephrology recommendations. -Creatinine improving. 7. Hyponatremia, likely secondary to congestive heart failure. -Stable at baseline with no neuro deficits. -On free water restriction. Nephrology managing. 8. Possible depressive disorders. -On Lexapro. I had requested a social worker psychiatric and psych consultation on 07/12/2018 which is pending. -Continue supportive care. 9. Constipation -Start senna and Colace. DVT prophylaxis: Heparin PUD prophylaxis: Protonix Disposition: Continue current management. Continue supportive care. Follow-up GI recommendations. Patient was seen in collaboration with Dr. Bray. Result Diagram: 07/12/18 0432 07/13/18 0536 Results 24hrs Laboratory Tests Test 07/13/18 05:36 Sodium Level 127 L Potassium Level 3.4 L Chloride Level 91 L Carbon Dioxide Level 28 Anion Gap 8 Blood Urea Nitrogen 24 H Creatinine 1.25 H Est Glomerular Filtrat Rate mL/min 53 L Glucose Level 98 Calcium Level 9.2 Phosphorus Level 2.8 Magnesium Level 2.4 Exam/Review of Systems Exam Vitals Vital Signs Date Temp Pulse Resp B/P (MAP) Pulse Ox O2 O2 Flow FiO2 Time Delivery Rate 07/13/18 81 08:00 07/13/18 98.8 20 106/71 99 07:20 (83) 07/11/18 Room Air 16:16 07/11/18 3.0 11:38 Intake and Output 07/12/18 07/12/18 07/13/18 1515:00 23:00 07:00 IntakeIntake Total 800 ml 220 ml BalanceBalance 800 ml 220 ml Results Results 24hrs Laboratory Tests Test 07/13/18 05:36 Sodium Level 127 L Potassium Level 3.4 L Chloride Level 91 L Carbon Dioxide Level 28 Anion Gap 8 Blood Urea Nitrogen 24 H Creatinine 1.25 H Est Glomerular Filtrat Rate mL/min 53 L Glucose Level 98 Calcium Level 9.2 Phosphorus Level 2.8 Magnesium Level 2.4 Medications Medication Current Medications IV Flush (NS 3 ml) 3 ml PER PROTOCOL IV ; Start 07/08/18 at 00:00 Acetaminophen (Tylenol Tab) 650 mg Q6H PRN PO .PAIN 1-3 OR TEMP; Start 07/08/18 at 00:00 Acetaminophen/ Hydrocodone Bitart ([place] (5/325)) 1 tab Q6H PRN PO .PAIN 4-6 Last administered on 07/13/18at 09:01; Admin Dose 1 TAB; Start 07/08/18 at 00:00 Heparin Sodium (Porcine) (Heparin (5000 Units/1ml)) 5,000 unit Q12 SC Last administered on 07/13/18 09:13; Admin Dose 5,000 UNIT; Start 07/08/18 at 09:00 Albuterol/ Ipratropium (Duoneb) 3 ml Q2H RESP THERAPY PRN HHN SHORTNESS OF BREATH; Start 07/08/18 at 00:00 Aspirin (Halfprin) 81 mg DAILY PO Last administered on 07/13/18 08:58; Admin Dose 81 MG; Start 07/08/18 at 09:00 Carvedilol (Coreg) 3.125 mg BID PO Last administered on 07/13/18 09:01; Admin Dose 3.125 MG; Start 07/08/18 at 09:00 Atorvastatin Calcium (Lipitor) 20 mg HS PO Last administered on 07/12/18 21:00; Admin Dose 20 MG; Start 07/08/18 at 21:00 Miscellaneous Information Patients own medicat... BID@10,16 XX ; Start 07/08/18 at 10:00 Lorazepam (Ativan) 1 mg BID PRN PO ANXIETY Last administered on 07/08/18 22:30; Admin Dose 1 MG; Start 07/08/18 at 15:00 Dicyclomine HCl (Bentyl) 20 mg Q8 GTB Last administered on 07/13/18 05:30; Admin Dose 20 MG; Start 07/08/18 at 22:00 Metoclopramide HCl (Reglan) 5 mg Q6 IV Last administered on 07/13/18 05:30; Admin Dose 5 MG; Start 07/10/18 at 00:00 Polyethylene Glycol (Miralax) 17 gm DAILY PO Last administered on 07/13/18 09:02; Admin Dose 17 GM; Start 07/10/18 at 09:00 Pantoprazole (Protonix Tab) 40 mg DAILY@06 PO Last administered on 07/13/18 05:30; Admin Dose 40 MG; Start 07/12/18 at 06:00 Fluconazole (Diflucan) 100 mg DAILY PO Last administered on 07/13/18 08:58; Admin Dose 100 MG; Start 07/12/18 at 09:00 Escitalopram Oxalate (Lexapro) 5 mg DAILY PO Last administered on 07/13/18 08:58; Admin Dose 5 MG; Start 07/11/18 at 14:00 Morphine Sulfate (morphine) 2 mg Q6H PRN IV SEVERE PAIN LEVEL 7-10 Last administered on 07/11/18 18:03; Admin Dose 2 MG; Start 07/11/18 at 18:00 Ondansetron HCl (Zofran Inj) 4 mg Q6H PRN IV NAUSEA AND/OR VOMITING; Start at 14:55 Bumetanide (Bumex) 1 mg DAILY PO Last administered on 07/13/18at 08:59; Admin Dose 1 MG; Start 07/13/18 at 09:00 Spironolactone (Aldactone) 25 mg DAILY PO Last administered on 07/13/18at 08:58; Admin Dose 25 MG; Start 07/13/18 at 09:00 JODY RODNEY V. [employer] OPERATOR Jul 13, 2018 09:39
--- NOTE | 2018-07-13 10:49 | CONS ---
Assessment/Plan Cardiology NYHA: III Heart Failure Type: Chronic Heart Failure Type: Both Consultation Date/Type/Reason Admit Date/Time Jul 07, 2018 at 20:09 Initial Consult Date 07/08/18 Type of Consult Cardiology Requesting Provider: PIO CRAMER MD Date/Time of Note DATE: 07/13/18 TIME: 10:48 24 HR Interval Summary Free Text/Dictation Abdominal pain Bladder abnormalities on CT scan Elevated lipase Chronic systolic congestive heart failure Severe nonischemic cardia myopathy Pulmonary hypertension Acute kidney injury History of biventricular pacemaker/ICD -Patient presents with abdominal pain, nausea and chills -She denies any chest pain or shortness of breath -No evidence of decompensated congestive heart failure at the current time -esophageal candidiasis -Diuretics as per nephrology Exam/Review of Systems Vital Signs Vitals Vital Signs Date Temp Pulse Resp B/P (MAP) Pulse Ox O2 O2 Flow FiO2 Time Delivery Rate 07/13/18 81 08:00 07/13/18 98.8 20 106/71 99 07:20 (83) 07/11/18 Room Air 16:16 07/11/18 3.0 11:38 Intake and Output 07/12/18 07/12/18 07/13/18 1414:59 22:59 06:59 IntakeIntake Total 800 ml 220 ml BalanceBalance 800 ml 220 ml Exam Constitutional: alert, oriented Respiratory: No clear to auscultation Cardiovascular: No regular rate and rhythm Extremities: No edema Labs Result Diagram: 07/12/18 0432 07/13/18 0536 Results 24hrs Laboratory Tests Test 07/13/18 05:36 Sodium Level 127 L Potassium Level 3.4 L Chloride Level 91 L Carbon Dioxide Level 28 Anion Gap 8 Blood Urea Nitrogen 24 H Creatinine 1.25 H Est Glomerular Filtrat Rate mL/min 53 L Glucose Level 98 Calcium Level 9.2 Phosphorus Level 2.8 Magnesium Level 2.4 Medications Medications Current Medications IV Flush (NS 3 ml) 3 ml PER PROTOCOL IV ; Start 07/08/18 at 00:00 Acetaminophen (Tylenol Tab) 650 mg Q6H PRN PO .PAIN 1-3 OR TEMP; Start 07/08/18 at 00:00 Acetaminophen/ Hydrocodone Bitart ([place] (5/325)) 1 tab Q6H PRN PO .PAIN 4-6 Last administered on 07/13/18at 09:01; Admin Dose 1 TAB; Start 07/08/18 at 00:00 Heparin Sodium (Porcine) (Heparin (5000 Units/1ml)) 5,000 unit Q12 SC Last administered on 07/13/18 09:13; Admin Dose 5,000 UNIT; Start 07/08/18 at 09:00 Albuterol/ Ipratropium (Duoneb) 3 ml Q2H RESP THERAPY PRN HHN SHORTNESS OF BREATH; Start 07/08/18 at 00:00 Aspirin (Halfprin) 81 mg DAILY PO Last administered on 07/13/18 08:58; Admin Dose 81 MG; Start 07/08/18 at 09:00 Carvedilol (Coreg) 3.125 mg BID PO Last administered on 07/13/18 09:01; Admin Dose 3.125 MG; Start 07/08/18 at 09:00 Atorvastatin Calcium (Lipitor) 20 mg HS PO Last administered on 07/12/18 21:00; Admin Dose 20 MG; Start 07/08/18 at 21:00 Miscellaneous Information Patients own medicat... BID@10,16 XX ; Start 07/08/18 at 10:00 Lorazepam (Ativan) 1 mg BID PRN PO ANXIETY Last administered on 07/08/18 22:30; Admin Dose 1 MG; Start 07/08/18 at 15:00 Dicyclomine HCl (Bentyl) 20 mg Q8 GTB Last administered on 07/13/18 05:30; Admin Dose 20 MG; Start 07/08/18 at 22:00 Metoclopramide HCl (Reglan) 5 mg Q6 IV Last administered on 07/13/18 05:30; Admin Dose 5 MG; Start 07/10/18 at 00:00 Polyethylene Glycol (Miralax) 17 gm DAILY PO Last administered on 07/13/18 09:02; Admin Dose 17 GM; Start 07/10/18 at 09:00 Pantoprazole (Protonix Tab) 40 mg DAILY@06 PO Last administered on 07/13/18 05:30; Admin Dose 40 MG; Start 07/12/18 at 06:00 Fluconazole (Diflucan) 100 mg DAILY PO Last administered on 07/13/18 08:58; Admin Dose 100 MG; Start 07/12/18 at 09:00 Escitalopram Oxalate (Lexapro) 5 mg DAILY PO Last administered on 07/13/18 08:58; Admin Dose 5 MG; Start 07/11/18 at 14:00 Morphine Sulfate (morphine) 2 mg Q6H PRN IV SEVERE PAIN LEVEL 7-10 Last administered on 07/11/18at 18:03; Admin Dose 2 MG; Start 07/11/18 at 18:00 Ondansetron HCl (Zofran Inj) 4 mg Q6H PRN IV NAUSEA AND/OR VOMITING; Start 07/12/18 at 14:55 Bumetanide (Bumex) 1 mg DAILY PO Last administered on 07/13/18at 08:59; Admin Dose 1 MG; Start 07/13/18 at 09:00 Spironolactone (Aldactone) 25 mg DAILY PO Last administered on 07/13/18at 08:58; Admin Dose 25 MG; Start 07/13/18 at 09:00 Senna (Senokot) 2 tab BID PRN PO CONSTIPATION; Start 07/13/18 at 09:30 Docusate Sodium (Colace) 200 mg BID PRN PO CONSTIPATION; Start 07/13/18 at 09:30 ROBERT CONTRERAS MD Jul 13, 2018 10:49
--- NOTE | 2018-07-13 12:12 | CONS ---
Consult Date/Type/Reason Admit Date/Time Jul 07, 2018 at 20:09 Initial Consult Date 07/08/18 Type of Consultation: Urology Reason for Consultation Thick bladder wall on CT scan Requesting Provider: PIO CRAMER MD Date/Time of Note DATE: 07/13/18 TIME: 12:09 Subjective Patient states that she is voiding well, has no dysuria and no hematuria Objective Vitals Vital Signs Date Temp Pulse Resp B/P (MAP) Pulse Ox O2 O2 Flow FiO2 Time Delivery Rate 07/13/18 97.4 70 19 105/63 100 11:10 (77) 07/11/18 Room Air 16:16 07/11/18 3.0 11:38 Intake and Output 07/12/18 07/12/18 07/13/18 1515:00 23:00 07:00 IntakeIntake Total 800 ml 220 ml BalanceBalance 800 ml 220 ml Exam The urine is clear, the abdomen is soft Results/Medications Result Diagram: 07/12/18 0432 07/13/18 0536 Results 24 hrs Laboratory Tests Test 07/13/18 05:36 Sodium Level 127 L Potassium Level 3.4 L Chloride Level 91 L Carbon Dioxide Level 28 Anion Gap 8 Blood Urea Nitrogen 24 H Creatinine 1.25 H Est Glomerular Filtrat Rate mL/min 53 L Glucose Level 98 Calcium Level 9.2 Phosphorus Level 2.8 Magnesium Level 2.4 Home Meds Active Scripts [Work Note] No Conflict Check This is to certify that the patient was admitted to [facility] from 06/30/2018 to 07/03/2018. She can return back to work on 07/07/2018 with no restrictions. Prov:GERARDO JOHN CONCRETE PUDDLER 07/03/18 Reported Medications Methylprednisolone* (Medrol* DOSE PACK) 4 Mg/Dose-Pack Tab.ds.pk, 4 MG PO . DIRECTED, PACKET Currently on last tablet of third day 07/07/18 Amoxicillin Trihydrate (Amoxicillin) 500 Mg Tablet, 500 MG PO Q8, #30 TAB 07/07/18 Sacubitril/Valsartan (Entresto 49 mg-51 mg Tablet) 1 Each Tablet, 1 TAB PO BID, TAB 06/30/18 Spironolactone* (Aldactone*) 25 Mg Tablet, 12.5 MG PO DAILY, #30 TAB 06/30/18 Lorazepam* (Lorazepam*) 0.5 Mg Tablet, 0.5 MG PO BID PRN for ANXIETY, TAB 01/07/18 Aspirin (Low Dose Aspirin) 81 Mg Tablet.dr, 81 MG PO DAILY, #30 TAB 01/07/18 Bumetanide* (Bumetanide*) 1 Mg Tablet, 2 MG PO BID, TAB 01/07/18 Carvedilol* (Carvedilol*) 3.125 Mg Tablet, 3.125 MG PO BID, #60 TAB 01/07/18 Medications Current Medications IV Flush (NS 3 ml) 3 ml PER PROTOCOL IV ; Start 07/08/18 at 00:00 Acetaminophen (Tylenol Tab) 650 mg Q6H PRN PO .PAIN 1-3 OR TEMP; Start 07/08/18 at 00:00 Acetaminophen/ Hydrocodone Bitart ([place] (5/325)) 1 tab Q6H PRN PO .PAIN 4-6 Last administered on 07/13/18 09:01; Admin Dose 1 TAB; Start 07/08/18 at 00:00 Heparin Sodium (Porcine) (Heparin (5000 Units/1ml)) 5,000 unit Q12 SC Last administered on 07/13/18at 09:13; Admin Dose 5,000 UNIT; Start 07/08/18 at 09:00 Albuterol/ Ipratropium (Duoneb) 3 ml Q2H RESP THERAPY PRN HHN SHORTNESS OF BREATH; Start 07/08/18 at 00:00 Aspirin (Halfprin) 81 mg DAILY PO Last administered on 07/13/18 08:58; Admin Dose 81 MG; Start 07/08/18 at 09:00 Carvedilol (Coreg) 3.125 mg BID PO Last administered on 07/13/18 09:01; Admin Dose 3.125 MG; Start 07/08/18 at 09:00 Atorvastatin Calcium (Lipitor) 20 mg HS PO Last administered on 07/12/18at 21:00; Admin Dose 20 MG; Start 07/08/18 at 21:00 Miscellaneous Information Patients own medicat... BID@10,16 XX ; Start 07/08/18 at 10:00 Lorazepam (Ativan) 1 mg BID PRN PO ANXIETY Last administered on 07/08/18at 22:30; Admin Dose 1 MG; Start 07/08/18 at 15:00 Dicyclomine HCl (Bentyl) 20 mg Q8 GTB Last administered on 07/13/18 05:30; Admin Dose 20 MG; Start 07/08/18 at 22:00 Metoclopramide HCl (Reglan) 5 mg Q6 IV Last administered on 07/13/18 05:30; Admin Dose 5 MG; Start 07/10/18 at 00:00 Polyethylene Glycol (Miralax) 17 gm DAILY PO Last administered on 07/13/18 09:02; Admin Dose 17 GM; Start 07/10/18 at 09:00 Pantoprazole (Protonix Tab) 40 mg DAILY@06 PO Last administered on 07/13/18 05 :30; Admin Dose 40 MG; Start 07/12/18 at 06:00 Fluconazole (Diflucan) 100 mg DAILY PO Last administered on 07/13/18 08:58; Admin Dose 100 MG; Start 07/12/18 at 09:00 Escitalopram Oxalate (Lexapro) 5 mg DAILY PO Last administered on 07/13/18 08:58; Admin Dose 5 MG; Start 07/11/18 at 14:00 Morphine Sulfate (morphine) 2 mg Q6H PRN IV SEVERE PAIN LEVEL 7-10 Last administered on 07/11/18 18:03; Admin Dose 2 MG; Start 07/11/18 at 18:00 Ondansetron HCl (Zofran Inj) 4 mg Q6H PRN IV NAUSEA AND/OR VOMITING; Start 07/12/18 at 14:55 Bumetanide (Bumex) 1 mg DAILY PO Last administered on 07/13/18 08:59; Admin Dose 1 MG; Start 07/13/18 at 09:00 Spironolactone (Aldactone) 25 mg DAILY PO Last administered on 07/13/18 08:58; Admin Dose 25 MG; Start 07/13/18 at 09:00 Senna (Senokot) 2 tab BID PRN PO CONSTIPATION; Start 07/13/18 at 09:30 Docusate Sodium (Colace) 200 mg BID PRN PO CONSTIPATION; Start 07/13/18 at 09:30 Assessment/Plan Hospital Course (Demo Recall) 58-year-old female has a history of hypertension, chronic kidney disease, cardiomyopathy with systolic dysfunction with ejection fraction of 20%. She has AICD. She presented to the ER complaining of chest pain and abdominal pain. Chest pain is mainly localized in the mid chest and also slightly left-sided. Abdominal pain was mainly periumbilical more on the left side of the umbilicus. CT scan of the abdomen and pelvis and that showed: No evidence of urolithiasis, obstructive uropathy, diverticulitis or appendicitis. Cardiomegaly. Vascular calcifications. Mild interstitial edema. Question mild eccentric thickening right lateral and posterior wall urinary bladder. Suggest cystoscopic correlation. Osteoarthritis right hip joint The patient denies any prior history of gross hematuria. There is no dysuria, no urgency and no urgency incontinence The patient does have pain to the left side of the umbilicus. I did discuss with the patient doing a cystoscopy and that would be done in the office. I have given her a prescription with my name and address and phone number for her to call and make an appointment. I explained to her the reason for the cystoscopy and I had her repeat what I told her to make sure that she understood and she did. Her treating nurse was with me in the room and witnessed the conversation. The patient does remember that she has to make an appointment. EVERETT ALCANTARA MD Jul 13, 2018 12:12
--- NOTE | 2018-07-13 14:59 | CONS ---
Assessment/Plan Assessment/Plan Assessment/Plan (Daily) Consultation Assessment/Plan Assessment/Plan Assessment/Plan (Daily) Assessment/Plan Assessment/Plan (Daily) IMPRESSION: 1. Abdominal pain with emesis, rule out peptic ulcer disease or gastritis, rule out ischemic bowel. 2. Ischemic cardiomyopathy with ejection fraction of 50%. 3. Hypertension. 4. Chronic kidney disease. 5. 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 6. Pulmonary hypertension. 7. AICD. 8. Mild elevation of lipase with normal pancreas and a CAT scan. Plan We will start the patient on Reglan. Case was discussed with the patient and also with the father Continue Diflucan and antidepressant medication We will start patient on Librax. Consultation Date/Type/Reason Admit Date/Time Jul 07, 2018 at 20:09 Initial Consult Date 07/08/18 Requesting Provider: PIO CRAMER MD Date/Time of Note DATE: 07/13/18 TIME: 14:59 24 HR Interval Summary Free Text/Dictation Pain is much better Emesis almost resolved Constitutional: improved Exam/Review of Systems Exam Vitals Vital Signs Date Temp Pulse Resp B/P (MAP) Pulse Ox O2 O2 Flow FiO2 Time Delivery Rate 07/13/18 69 12:00 07/13/18 97.4 19 105/63 100 11:10 (77) 07/11/18 Room Air 16:16 07/11/18 3.0 11:38 Intake and Output 07/12/18 07/12/18 07/13/18 1515:00 23:00 07:00 IntakeIntake Total 800 ml 220 ml BalanceBalance 800 ml 220 ml Constitutional: alert, oriented, well developed Psych: no complaints, nl mood/affect Head: normocephalic, atraumatic Eyes: nl conjunctiva, EOMI, nl lids, nl sclera, PERRL ENMT: nl external ears & nose, nl lips & teeth, nl nasal mucosa & septum Neck: supple, non-tender Respiratory: clear to auscultation, normal air movement Cardiovascular: regular rate and rhythm, nl pulses Gastrointestinal: soft, nl liver, spleen, non-tender Musculoskeletal: nl extremities to inspection, nl gait and stance Extremities: normal pulses Neurological: [employer] CLE[employer] APPRENTICE II-XII intact, nl mental status, nl speech, nl strength Skin: nl turgor; No rash or lesions Lymph: nl lymph nodes Results Result Diagram: 4/13/19 0432 07/13/18 0536 Results 24hrs Laboratory Tests Test 07/13/18 05:36 Sodium Level 127 L Potassium Level 3.4 L Chloride Level 91 L Carbon Dioxide Level 28 Anion Gap 8 Blood Urea Nitrogen 24 H Creatinine 1.25 H Est Glomerular Filtrat Rate mL/min 53 L Glucose Level 98 Calcium Level 9.2 Phosphorus Level 2.8 Magnesium Level 2.4 Medications Medication Current Medications IV Flush (NS 3 ml) 3 ml PER PROTOCOL IV ; Start 07/08/18 at 00:00 Acetaminophen (Tylenol Tab) 650 mg Q6H PRN PO .PAIN 1-3 OR TEMP; Start 07/08/18 at 00:00 Acetaminophen/ Hydrocodone Bitart ([place] (5/325)) 1 tab Q6H PRN PO .PAIN 4-6 Last administered on 07/13/18at 09:01; Admin Dose 1 TAB; Start 07/08/18 at 00:00 Heparin Sodium (Porcine) (Heparin (5000 Units/1ml)) 5,000 unit Q12 SC Last administered on 07/13/18at 09:13; Admin Dose 5,000 UNIT; Start 07/08/18 at 09:00 Albuterol/ Ipratropium (Duoneb) 3 ml Q2H RESP THERAPY PRN HHN SHORTNESS OF BREATH; Start 07/08/18 at 00:00 Aspirin (Halfprin) 81 mg DAILY PO Last administered on 07/13/18at 08:58; Admin Dose 81 MG; Start 07/08/18 at 09:00 Carvedilol (Coreg) 3.125 mg BID PO Last administered on 07/13/18at 09:01; Admin Dose 3.125 MG; Start 07/08/18 at 09:00 Atorvastatin Calcium (Lipitor) 20 mg HS PO Last administered on 07/12/18at 21:00; Admin Dose 20 MG; Start 07/08/18 at 21:00 Miscellaneous Information Patients own medicat... BID@10,16 XX ; Start 07/08/18 at 10:00 Lorazepam (Ativan) 1 mg BID PRN PO ANXIETY Last administered on 07/08/18at 22:30; Admin Dose 1 MG; Start 07/08/18 at 15:00 Dicyclomine HCl (Bentyl) 20 mg Q8 GTB Last administered on 07/13/18 05:30; A dmin Dose 20 MG; Start 07/08/18 at 22:00 Metoclopramide HCl (Reglan) 5 mg Q6 IV Last administered on 07/13/18 12:35; Admin Dose 5 MG; Start 07/10/18 at 00:00 Polyethylene Glycol (Miralax) 17 gm DAILY PO Last administered on 07/13/18 09:02; Admin Dose 17 GM; Start 07/10/18 at 09:00 Pantoprazole (Protonix Tab) 40 mg DAILY@06 PO Last administered on 07/13/18 05:30; Admin Dose 40 MG; Start 07/12/18 at 06:00 Fluconazole (Diflucan) 100 mg DAILY PO Last administered on 07/13/18 08:58; Admin Dose 100 MG; Start 07/12/18 at 09:00 Escitalopram Oxalate (Lexapro) 5 mg DAILY PO Last administered on 07/13/18 08:58; Admin Dose 5 MG; Start 07/11/18 at 14:00 Morphine Sulfate (morphine) 2 mg Q6H PRN IV SEVERE PAIN LEVEL 7-10 Last administered on 07/11/18 18:03; Admin Dose 2 MG; Start 07/11/18 at 18:00 Ondansetron HCl (Zofran Inj) 4 mg Q6H PRN IV NAUSEA AND/OR VOMITING; Start 07/12/18 at 14:55 Bumetanide (Bumex) 1 mg DAILY PO Last administered on 07/13/18 08:59; Admin Dose 1 MG; Start 07/13/18 at 09:00 Spironolactone (Aldactone) 25 mg DAILY PO Last administered on 07/13/18 08:58; Admin Dose 25 MG; Start 07/13/18 at 09:00 Senna (Senokot) 2 tab BID PRN PO CONSTIPATION; Start 07/13/18 at 09:30 Docusate Sodium (Colace) 200 mg BID PRN PO CONSTIPATION; Start 07/13/18 at 09:30 ASHELY LOO MD Jul 13, 2018 14:59
[2018-07-13] MEDS ORDERED: CHLORDIAZEPOXIDE/CLIDINIUM CAP PO SCH (17:30)
[2018-07-13] MEDS: ATORVASTATIN 20 MG TAB PO SCH (20:51)
[2018-07-13] MEDS: CHLORDIAZEPOXIDE/CLIDINIUM CAP PO SCH (20:53)
[2018-07-14] VITALS (14 sets, daily range): BP systolic 92–123; BP diastolic 50–79; PULSE 68–85; RESP 17–20
[2018-07-14] MEDS: METOCLOPRAMIDE 10 MG INJ IV SCH ×4 (00:08→17:28)
[2018-07-14] MEDS: PANTOPRAZOLE (EC) 40 MG TAB PO SCH ×2 (06:06→06:22)
[2018-07-14] MEDS: HYDROCODONE/APAP (5/325) TAB PO PRN ×2 (06:35→16:07)
[2018-07-14] MEDS: CHLORDIAZEPOXIDE/CLIDINIUM CAP PO SCH (06:39)
[2018-07-14] MEDS: POLYETHYLENE GLYCOL 17 GM PACKET PO SCH (08:45)
[2018-07-14] MEDS: ASPIRIN (EC) 81 MG TAB PO SCH (08:46)
[2018-07-14] MEDS: SPIRONOLACTONE 25 MG TAB PO SCH (08:46)
[2018-07-14] MEDS: BUMETANIDE 1 MG TAB PO SCH (08:46)
[2018-07-14] MEDS: FLUCONAZOLE 100 MG TAB PO SCH (08:46)
[2018-07-14] MEDS: ESCITALOPRAM 10 MG TAB PO SCH (08:46)
[2018-07-14] MEDS: HEPARIN 5,000 UNIT/1 ML VIAL SC SCH ×2 (08:51→22:38)
--- NOTE | 2018-07-14 09:04 | CONS ---
Assessment/Plan Assessment/Plan Hospital Course (Demo Recall) 58 yo female Interval hx: Pt refusing librex, says it makes her stomach burn and extremely n auseous. She continues to have abd pain in epigastric region and behind umbilicus. States she was nauseous throughout night, vomiting mucus. No bm since she has not been eating. 1. Abdominal pain with emesis, rule out peptic ulcer disease or gastritis, rule out ischemic bowel. 2. Ischemic cardiomyopathy with ejection fraction of 50%. 3. Hypertension. 4. Chronic kidney disease. 5. 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 6. Pulmonary hypertension. 7. AICD. 8. Mild elevation of lipase with normal pancreas and a CAT scan. 9. Esophageal monolithiasis 10. Moderate gastritis Plan Bentyl 20 mg q 8 hr DC Librex amylase and lipase Continue with reglan Continue Diflucan and antidepressant medication Pain management Pt examined and plan of care discussed with Dr. Holt Consultation Date/Type/Reason Admit Date/Time Jul 07, 2018 at 20:09 Initial Consult Date 07/08/18 Requesting Provider: PIO CRAMER MD Date/Time of Note DATE: 07/14/18 TIME: 08:44 Exam/Review of Systems Exam Vitals Vital Signs Date Temp Pulse Resp B/P (MAP) Pulse Ox O2 O2 Flow FiO2 Time Delivery Rate 07/14/18 97.8 70 20 103/65 99 07:53 (78) 07/11/18 Room Air 16:16 07/11/18 3.0 11:38 Intake and Output 07/13/18 07/13/18 07/14/18 1515:00 23:00 07:00 IntakeIntake Total 220 ml BalanceBalance 220 ml Constitutional: alert, oriented Psych: no complaints Eyes: nl sclera Respiratory: clear to auscultation Gastrointestinal: soft, bowel sounds, tender Musculoskeletal: nl extremities to inspection, nl gait and stance Neurological: nl mental status Results Result Diagram: 07/14/18 0444 07/14/18 0444 Results 24hrs Laboratory Tests Test 07/14/18 04:44 White Blood Count 11.6 H Red Blood Count 5.18 Hemoglobin 14.7 Hematocrit 44.4 Mean Corpuscular Volume 85.7 Mean Corpuscular Hemoglobin 28.4 L Mean Corpuscular Hemoglobin Concent 33.1 Red Cell Distribution Width 14.9 H Platelet Count 198 Mean Platelet Volume 10.9 H Immature Granulocytes % 0.400 Neutrophils % 78.1 H Lymphocytes % 9.3 L Monocytes % 10.7 Eosinophils % 1.3 Basophils % 0.2 Nucleated Red Blood Cells % 0.0 Immature Granulocytes # 0.050 H Neutrophils # 9.0 H Lymphocytes # 1.1 Monocytes # 1.2 H Eosinophils # 0.2 Basophils # 0.0 Nucleated Red Blood Cells # 0.0 Sodium Level 130 L Potassium Level 3.8 Chloride Level 91 L Carbon Dioxide Level 29 Anion Gap 10 Blood Urea Nitrogen 22 H Creatinine 1.34 H Est Glomerular Filtrat Rate mL/min 49 L Glucose Level 91 Calcium Level 9.5 Phosphorus Level 2.8 Magnesium Level 2.3 Medications Medication Current Medications IV Flush (NS 3 ml) 3 ml PER PROTOCOL IV ; Start 07/08/18 at 00:00 Acetaminophen (Tylenol Tab) 650 mg Q6H PRN PO .PAIN 1-3 OR TEMP; Start 07/08/18 at 00:00 Acetaminophen/ Hydrocodone Bitart ([place] (5/325)) 1 tab Q6H PRN PO .PAIN 4-6 Last administered on 07/14/18at 06:35; Admin Dose 1 TAB; Start 07/08/18 at 00:00 Heparin Sodium (Porcine) (Heparin (5000 Units/1ml)) 5,000 unit Q12 SC Last administered on 07/13/18at 21:09; Admin Dose 5,000 UNIT; Start 07/08/18 at 09:00 Albuterol/ Ipratropium (Duoneb) 3 ml Q2H RESP THERAPY PRN HHN SHORTNESS OF BREATH; Start 07/08/18 at 00:00 Aspirin (Halfprin) 81 mg DAILY PO Last administered on 07/13/18at 08:58; Admin Dose 81 MG; Start 07/08/18 at 09:00 Carvedilol (Coreg) 3.125 mg BID PO Last administered on 07/13/18at 09:01; Admin Dose 3.125 MG; Start 07/08/18 at 09:00 Atorvastatin Calcium (Lipitor) 20 mg HS PO Last administered on 07/13/18at 20:51; Admin Dose 20 MG; Start 07/08/18 at 21:00 Miscellaneous Information Patients own medicat... BID@,16 XX ; Start 07/08/18 at 10:00 Lorazepam (Ativan) 1 mg BID PRN PO ANXIETY Last administered on 07/08/18 22:30; Admin Dose 1 MG; Start 07/08/18 at 15:00 Metoclopramide HCl (Reglan) 5 mg Q6 IV Last administered on 07/14/18 06:22; Admin Dose 5 MG; Start 07/10/18 at 00:00 Polyethylene Glycol (Miralax) 17 gm DAILY PO Last administered on 07/13/18 09:02; Admin Dose 17 GM; Start 07/10/18 at 09:00 Pantoprazole (Protonix Tab) 40 mg DAILY@06 PO Last administered on 07/14/18 06:22; Admin Dose 40 MG; Start 07/12/18 at 06:00 Fluconazole (Diflucan) 100 mg DAILY PO Last administered on 07/13/18 08:58; Admin Dose 100 MG; Start 07/12/18 at 09:00 Escitalopram Oxalate (Lexapro) 5 mg DAILY PO Last administered on 07/13/18 08:58; Admin Dose 5 MG; Start 07/11/18 at 14:00 Morphine Sulfate (morphine) 2 mg Q6H PRN IV SEVERE PAIN LEVEL 7-10 Last administered on 07/11/18 18:03; Admin Dose 2 MG; Start 07/11/18 at 18:00 Ondansetron HCl (Zofran Inj) 4 mg Q6H PRN IV NAUSEA AND/OR VOMITING; Start 07/12/18 at 14:55 Bumetanide (Bumex) 1 mg DAILY PO Last administered on 07/13/18 08:59; Admin Dose 1 MG; Start 07/13/18 at 09:00 Spironolactone (Aldactone) 25 mg DAILY PO Last administered on 07/13/18 08:58; Admin Dose 25 MG; Start 07/13/18 at 09:00 Senna (Senokot) 2 tab BID PRN PO CONSTIPATION Last administered on 07/14/18 06:34; Admin Dose 2 TAB; Start 07/13/18 at 09:30 Docusate Sodium (Colace) 200 mg BID PRN PO CONSTIPATION; Start 07/13/18 at 09:30 Chlordiazepoxide/ Clidinium (Librax) 1 cap AC MEALS AND BEDTIME PO Last administered on 07/13/18at 20:53; Admin Dose 1 CAP; Start 07/13/18 at 21:00 SRAVANTHI MAXWELL Jul 14, 2018 09:00
--- NOTE | 2018-07-14 09:12 | PN ---
DATE: 07/14/2018 SUBJECTIVE: The patient is stable, no events overnight. No fevers, chills, nausea, vomiting. OBJECTIVE: VITAL SIGNS: Blood pressure is 103/65, respirations 20, pulse 70, temperature 97.8. HEENT: Head is normocephalic. NECK: Supple. HEART: Regular rate. LUNGS: Show diminished breath sounds at the base. ABDOMEN: Soft, nontender to palpation without rebound or guarding. EXTREMITIES: Negative for clubbing, cyanosis, no edema. DERMATOLOGIC: No rashes. MUSCULOSKELETAL: No joint effusion. NEUROLOGIC: No change in exam. MEDICATIONS: Reviewed. LABORATORY DATA: Reviewed. ASSESSMENT AND PLAN: 1. Nonoliguric acute kidney injury with previous baseline creatinine of 1.3 mg/dL. Etiology of acut e kidney injury is secondary to cardiorenal syndrome. The patient's renal function has been fluctuat ing, but overall stable. Continue current treatment plan. 2. Hyponatremia secondary to congestive heart failure exacerbation, acute kidney injury. Continue f ree water restriction and monitor. 3. Hypokalemia. Continue to monitor and replete. 4. Metabolic alkalemia secondary to diuretic therapy, improved. We will give intermittent Diamox as needed. 5. Mineral bone disorder, monitor calcium and phosphorus levels. 6. Hypomagnesemia. Continue to monitor and replete. 7. Congestive heart failure. The patient appears compensated. Continue medical management. Contin ue low-dose diuretic therapy. 8. Abdominal pain. The patient is status post EGD, positive esophagitis, gastritis. Continue joselito n pump inhibitor. 9. Arrhythmia, status post pacemaker placement. 10. History of pulmonary hypertension. 11. Acute respiratory failure. The patient is currently stable. Resolved. Continue to monitor. 12. Constipation. Continue MiraLax. Dictated By: AZEEM BERNARD DO NR/NTS Conf#: [id number] DID#: [id number] CC: PIO CRAMER MD; MARY DAMON MD; EVERETT ALCANTARA MD;*EndCC*
--- NOTE | 2018-07-14 09:35 | PN ---
Date/Time of Note Date/Time of Note DATE: 07/14/18 TIME: 09:33 Assessment/Plan VTE Prophylaxis Risk score (from Ns)>0 risk: 4 SCD applied (from [facility]): No SCD contraindicated: other Pharmacological prophylaxis: heparin Lines/Catheters IV Catheter Type (from [facility]): Saline Lock Urinary Cath still in place: No Assessment/Plan Hospital Course SUBJECTIVE: With improved abdominal pain, nausea. Has been tolerating diet fairly. OBJECTIVE: Vital signs-see below PHYSICAL EXAM: Constitutional: Well-developed -[place] female, with generalized weakness HEENT: Head atraumatic and normocephalic. Eyes: Extraocular muscles intact. Anicteric sclerae. Pupils equal bilaterally, reactive to light. NECK: Supple without lymph node. CHEST: Clear and good breath sounds equally. No wheezing. No rhonchi. HEART: S1, S2. Regular rate and rhythm. ABDOMEN: Generalized tenderness to lower abdomen. No rebound tenderness. Soft, no rebound tenderness. Bowel sounds were present. EXTREMITIES: Full range of motion in all the extremities. No cyanosis, clubbing or edema. NEUROLOGIC: Alert and oriented x3. No focal deficit. No sensory deficit. PSYCHOSOCIAL: Depressed. INTEGUMENTARY: Moist mucous membranes. Good skin turgor, intact. ASSESSMENT AND PLAN: 58-year-old female with history of severe cardiomyopathy, systolic CHF, ICD placed, pulmonary hypertension,admitted with nausea, abdominal pain.. 1. Abdominal pain/nausea/vomiting. -Gradually improving. -Status post EGD 07/11/2018=> Janette esophagitis/acute gastritis without bleeding. -On PPI/Diflucan/Bentyl therapy. -Pending pathology report -Follow-up GI recommendations. 2. Chronic systolic congestive heart failure. -Compensated. Status post BiVICD placed -Continue beta-blockers/Aldactone/Bumex 3. Nonischemic cardiomyopathy -Management as #2. 4. Pulmonary hypertension. -No acute issues. Outpatient follow-up. 5. Questionable bladder abnormalities on CT scan. -Appreciate urology recommendation who advised outpatient cystoscopy after discharge. 6. Acute kidney injury on chronic kidney disease. -Appreciate nephrology recommendations. -Creatinine improving. 7. Hyponatremia, likely secondary to congestive heart failure. -Improved. -On free water restriction. Nephrology managing. 8. Possible depressive disorders. -On Lexapro. I had requested a social work program coordinator and psych consultation on 07/12/2018 which is pending. -Continue supportive care. 9. Constipation -Start senna and Colace. 10. Debility. -Case management to arrange home health -Continue PT eval and treat. DVT prophylaxis: Heparin PUD prophylaxis: Protonix Disposition: Overall, patient with improvement in symptoms and is fairly tolerating diet. She is requesting discharge tomorrow. I will also have case management arrange home health. Patient was seen in collaboration with Dr. Arana Result Diagram: 07/14/18 0444 07/14/184 Results 24hrs Laboratory Tests Test 07/14/18 04:44 White Blood Count 11.6 H Red Blood Count 5.18 Hemoglobin 14.7 Hematocrit 44.4 Mean Corpuscular Volume 85.7 Mean Corpuscular Hemoglobin 28.4 L Mean Corpuscular Hemoglobin Concent 33.1 Red Cell Distribution Width 14.9 H Platelet Count 198 Mean Platelet Volume 10.9 H Immature Granulocytes % 0.400 Neutrophils % 78.1 H Lymphocytes % 9.3 L Monocytes % 10.7 Eosinophils % 1.3 Basophils % 0.2 Nucleated Red Blood Cells % 0.0 Immature Granulocytes # 0.050 H Neutrophils # 9.0 H Lymphocytes # 1.1 Monocytes # 1.2 H Eosinophils # 0.2 Basophils # 0.0 Nucleated Red Blood Cells # 0.0 Sodium Level 130 L Potassium Level 3.8 Chloride Level 91 L Carbon Dioxide Level 29 Anion Gap 10 Blood Urea Nitrogen 22 H Creatinine 1.34 H Est Glomerular Filtrat Rate mL/min 49 L Glucose Level 91 Calcium Level 9.5 Phosphorus Level 2.8 Magnesium Level 2.3 Exam/Review of Systems Exam Vitals Vital Signs Date Temp Pulse Resp B/P (MAP) Pulse Ox O2 O2 Flow FiO2 Time Delivery Rate 07/14/18 85 08:01 07/14/18 97.8 20 103/65 99 07:53 (78) 07/11/18 Room Air 16:16 07/11/18 3.0 11:38 Intake and Output 07/13/18 07/13/18 07/14/18 1515:00 23:00 07:00 IntakeIntake Total 220 ml BalanceBalance 220 ml Results Results 24hrs Laboratory Tests Test 07/14/18 04:44 White Blood Count 11.6 H Red Blood Count 5.18 Hemoglobin 14.7 Hematocrit 44.4 Mean Corpuscular Volume 85.7 Mean Corpuscular Hemoglobin 28.4 L Mean Corpuscular Hemoglobin Concent 33.1 Red Cell Distribution Width 14.9 H Platelet Count 198 Mean Platelet Volume 10.9 H Immature Granulocytes % 0.400 Neutrophils % 78.1 H Lymphocytes % 9.3 L Monocytes % 10.7 Eosinophils % 1.3 Basophils % 0.2 Nucleated Red Blood Cells % 0.0 Immature Granulocytes # 0.050 H Neutrophils # 9.0 H Lymphocytes # 1.1 Monocytes # 1.2 H Eosinophils # 0.2 Basophils # 0.0 Nucleated Red Blood Cells # 0.0 Sodium Level 130 L Potassium Level 3.8 Chloride Level 91 L Carbon Dioxide Level 29 Anion Gap 10 Blood Urea Nitrogen 22 H Creatinine 1.34 H Est Glomerular Filtrat Rate mL/min 49 L Glucose Level 91 Calcium Level 9.5 Phosphorus Level 2.8 Magnesium Level 2.3 Medications Medication Current Medications IV Flush (NS 3 ml) 3 ml PER PROTOCOL IV ; Start 07/08/18 at 00:00 Acetaminophen (Tylenol Tab) 650 mg Q6H PRN PO .PAIN 1-3 OR TEMP; Start 07/08/18 at 00:00 Acetaminophen/ Hydrocodone Bitart ([place] (5/325)) 1 tab Q6H PRN PO .PAIN 4-6 Last administered on 07/14/18 06:35; Admin Dose 1 TAB; Start 07/08/18 at 00:00 Heparin Sodium (Porcine) (Heparin (5000 Units/1ml)) 5,000 unit Q12 SC Last administered on 07/14/18 08:51; Admin Dose 5,000 UNIT; Start 07/08/18 at 09:00 Albuterol/ Ipratropium (Duoneb) 3 ml Q2H RESP THERAPY PRN HHN SHORTNESS OF BREATH; Start 07/08/18 at 00:00 Aspirin (Halfprin) 81 mg DAILY PO Last administered on 07/14/18 08:46; Admin Dose 81 MG; Start 07/08/18 at 09:00 Carvedilol (Coreg) 3.125 mg BID PO Last administered on 07/14/18 08:47; Admin Dose 3.125 MG; Start 07/08/18 at 09:00 Atorvastatin Calcium (Lipitor) 20 mg HS PO Last administered on 07/13/18 20: 51; Admin Dose 20 MG; Start 07/08/18 at 21:00 Miscellaneous Information Patients own medicat... BID@10,16 XX ; Start 07/08/18 at 10:00 Lorazepam (Ativan) 1 mg BID PRN PO ANXIETY Last administered on 07/08/18 22:30; Admin Dose 1 MG; Start 07/08/18 at 15:00 Metoclopramide HCl (Reglan) 5 mg Q6 IV Last administered on 07/14/18 06:22; Admin Dose 5 MG; Start 07/10/18 at 00:00 Polyethylene Glycol (Miralax) 17 gm DAILY PO Last administered on 07/14/18 08:45; Admin Dose 17 GM; Start 07/10/18 at 09:00 Pantoprazole (Protonix Tab) 40 mg DAILY@06 PO Last administered on 07/14/18 06:22; Admin Dose 40 MG; Start 07/12/18 at 06:00 Fluconazole (Diflucan) 100 mg DAILY PO Last administered on 07/14/18 08:46; Admin Dose 100 MG; Start 07/12/18 at 09:00 Escitalopram Oxalate (Lexapro) 5 mg DAILY PO Last administered on 07/14/18 08:46; Admin Dose 5 MG; Start 07/11/18 at 14:00 Morphine Sulfate (morphine) 2 mg Q6H PRN IV SEVERE PAIN LEVEL 7-10 Last administered on 07/11/18 18:03; Admin Dose 2 MG; Start 07/11/18 at 18:00 Ondansetron HCl (Zofran Inj) 4 mg Q6H PRN IV NAUSEA AND/OR VOMITING; Start 07/12/18 at 14:55 Bumetanide (Bumex) 1 mg DAILY PO Last administered on 07/14/18 08:46; Admin Dose 1 MG; Start 07/13/18 at 09:00 Spironolactone (Aldactone) 25 mg DAILY PO Last administered on 07/14/18 08:46; Admin Dose 25 MG; Start 07/13/18 at 09:00 Senna (Senokot) 2 tab BID PRN PO CONSTIPATION Last administered on 07/14/18 06:34; Admin Dose 2 TAB; Start 07/13/18 at 09:30 Docusate Sodium (Colace) 200 mg BID PRN PO CONSTIPATION; Start 07/13/18 at 09:30 Dicyclomine HCl (Bentyl) 20 mg Q8 NGT ; Start 07/14/18 at 14:00 JODY RODNEY V. LONGWALL MACHINE OPERATOR HELPER Jul 14, 2018 09:35
--- NOTE | 2018-07-14 14:18 | CONS ---
Assessment/Plan Cardiology NYHA: III Heart Failure Type: Chronic Heart Failure Type: Both Assessment/Plan Hospital Course (Demo Recall) Abdominal pain Bladder abnormalities on CT scan Elevated lipase Chronic systolic congestive heart failure Severe nonischemic cardia myopathy Pulmonary hypertension Acute kidney injury History of biventricular pacemaker/ICD -GI sx improving -She denies any chest pain or shortness of breath -No evidence of decompensated congestive heart failure at the current time -restart Entresto if no contraindication -Diuretics as per nephrology Consultation Date/Type/Reason Admit Date/Time Jul 07, 2018 at 20:09 Initial Consult Date 07/08/18 Type of Consult Cardiology Requesting Provider: PIO CRAMER MD Date/Time of Note DATE: 07/14/18 TIME: 14:16 24 HR Interval Summary Free Text/Dictation no sob, cp, palp. less naussea Exam/Review of Systems Vital Signs Vitals Vital Signs Date Temp Pulse Resp B/P (MAP) Pulse Ox O2 O2 Flow FiO2 Time Delivery Rate 07/14/18 76 12:01 07/14/18 98.8 20 123/79 100 11:41 (94) 07/11/18 Room Air 16:16 07/11/18 3.0 11:38 Intake and Output 07/13/18 07/13/18 07/14/18 1515:00 23:00 07:00 IntakeIntake Total 220 ml BalanceBalance 220 ml Exam Constitutional: alert, oriented (nad) Head: normocephalic Neck: supple Respiratory: other (course bs, no wheeze) Cardiovascular: regular rate and rhythm (s1s2) Gastrointestinal: soft, non-tender, bowel sounds Extremities: other (no sig edema) Labs Result Diagram: 07/14/18 0444 07/14/18 0444 Results 24hrs Laboratory Tests Test 07/14/18 04:44 White Blood Count 11.6 H Red Blood Count 5.18 Hemoglobin 14.7 Hematocrit 44.4 Mean Corpuscular Volume 85.7 Mean Corpuscular Hemoglobin 28.4 L Mean Corpuscular Hemoglobin Concent 33.1 Red Cell Distribution Width 14.9 H Platelet Count 198 Mean Platelet Volume 10.9 H Immature Granulocytes % 0.400 Neutrophils % 78.1 H Lymphocytes % 9.3 L Monocytes % 10.7 Eosinophils % 1.3 Basophils % 0.2 Nucleated Red Blood Cells % 0.0 Immature Granulocytes # 0.050 H Neutrophils # 9.0 H Lymphocytes # 1.1 Monocytes # 1.2 H Eosinophils # 0.2 Basophils # 0.0 Nucleated Red Blood Cells # 0.0 Sodium Level 130 L Potassium Level 3.8 Chloride Level 91 L Carbon Dioxide Level 29 Anion Gap 10 Blood Urea Nitrogen 22 H Creatinine 1.34 H Est Glomerular Filtrat Rate mL/min 49 L Glucose Level 91 Calcium Level 9.5 Phosphorus Level 2.8 Magnesium Level 2.3 Amylase Level 221 H Lipase 1209 H Medications Medications Current Medications IV Flush (NS 3 ml) 3 ml PER PROTOCOL IV ; Start 07/08/18 at 00:00 Acetaminophen (Tylenol Tab) 650 mg Q6H PRN PO .PAIN 1-3 OR TEMP; Start 07/08/18 at 00:00 Acetaminophen/ Hydrocodone Bitart ([place] (5/325)) 1 tab Q6H PRN PO .PAIN 4-6 Last administered on 07/14/18 06:35; Admin Dose 1 TAB; Start 07/08/18 at 00:00 Heparin Sodium (Porcine) (Heparin (5000 Units/1ml)) 5,000 unit Q12 SC Last administered on 07/14/18 08:51; Admin Dose 5,000 UNIT; Start 07/08/18 at 09:00 Albuterol/ Ipratropium (Duoneb) 3 ml Q2H RESP THERAPY PRN HHN SHORTNESS OF BREATH; Start 07/08/18 at 00:00 Aspirin (Halfprin) 81 mg DAILY PO Last administered on 07/14/18 08:46; Admin Dose 81 MG; Start 07/08/18 at 09:00 Carvedilol (Coreg) 3.125 mg BID PO Last administered on 07/14/18 08:47; Admin Dose 3.125 MG; Start 07/08/18 at 09:00 Atorvastatin Calcium (Lipitor) 20 mg HS PO Last administered on 07/13/18 20:51; Admin Dose 20 MG; Start 07/08/18 at 21:00 Miscellaneous Information Patients own medicat... BID@10,16 XX ; Start 07/08/18 at 10:00 Lorazepam (Ativan) 1 mg BID PRN PO ANXIETY Last administered on 07/08/18 22:30; Admin Dose 1 MG; Start 07/08/18 at 15:00 Metoclopramide HCl (Reglan) 5 mg Q6 IV Last administered on 07/14/18 12:12; Admin Dose 5 MG; Start 07/10/18 at 00:00 Polyethylene Glycol (Miralax) 17 gm DAILY PO Last administered on 07/14/18 08:45; Admin Dose 17 GM; Start 07/10/18 at 09:00 Pantoprazole (Protonix Tab) 40 mg DAILY@06 PO Last administered on 07/14/18 06:22; Admin Dose 40 MG; Start 07/12/18 at 06:00 Fluconazole (Diflucan) 100 mg DAILY PO Last administered on 07/14/18 08:46; Admin Dose 100 MG; Start 07/12/18 at 09:00 Escitalopram Oxalate (Lexapro) 5 mg DAILY PO Last administered on 07/14/18 08:46; Admin Dose 5 MG; Start 07/11/18 at 14:00 Morphine Sulfate (morphine) 2 mg Q6H PRN IV SEVERE PAIN LEVEL 7-10 Last administered on 07/11/18 18:03; Admin Dose 2 MG; Start 07/11/18 at 18:00 Ondansetron HCl (Zofran Inj) 4 mg Q6H PRN IV NAUSEA AND/OR VOMITING; Start 07/12/18 at 14:55 Bumetanide (Bumex) 1 mg DAILY PO Last administered on 07/14/18 08:46; Admin Dose 1 MG; Start 07/13/18 at 09:00 Spironolactone (Aldactone) 25 mg DAILY PO Last administered on 07/14/18 08:46; Admin Dose 25 MG; Start 07/13/18 at 09:00 Senna (Senokot) 2 tab BID PRN PO CONSTIPATION Last administered on 07/14/18 06:34; Admin Dose 2 TAB; Start 07/13/18 at 09:30 Docusate Sodium (Colace) 200 mg BID PRN PO CONSTIPATION; Start 07/13/18 at 09:30 Dicyclomine HCl (Bentyl) 20 mg Q8 NGT ; Start 07/14/18 at 14:00 Gwyn Paris DO Jul 14, 2018 14:18
[2018-07-14] MEDS: DICYCLOMINE 10 MG CAP NGT SCH (14:30)
[2018-07-14] MEDS: ATORVASTATIN 20 MG TAB PO SCH (21:41)
[2018-07-14] MEDS: SACUBITRIL/VALSARTAN (24mg-26mg) TABLET PO SCH (21:42)
[2018-07-14] MEDS: LORAZEPAM 1 MG TAB PO PRN (21:59)
[2018-07-15] VITALS (9 sets, daily range): BP systolic 84–115; BP diastolic 53–73; PULSE 61–77; RESP 16–17
[2018-07-15] MEDS: DICYCLOMINE 10 MG CAP NGT SCH ×3 (00:13→13:17)
[2018-07-15] MEDS: METOCLOPRAMIDE 10 MG INJ IV SCH ×3 (00:13→12:33)
[2018-07-15] MEDS: ESCITALOPRAM 10 MG TAB PO SCH (08:02)
[2018-07-15] MEDS: SPIRONOLACTONE 25 MG TAB PO SCH (08:02)
[2018-07-15] MEDS: SACUBITRIL/VALSARTAN (24mg-26mg) TABLET PO SCH (08:02)
[2018-07-15] MEDS: FLUCONAZOLE 100 MG TAB PO SCH (08:02)
[2018-07-15] MEDS: ASPIRIN (EC) 81 MG TAB PO SCH (08:02)
[2018-07-15] MEDS: HEPARIN 5,000 UNIT/1 ML VIAL SC SCH (08:11)
[2018-07-15] MEDS ORDERED: POTASSIUM CHLORIDE (SR) 20 MEQ TAB PO STA (08:44)
[2018-07-15] MEDS ORDERED: BUMETANIDE 1 MG TAB PO SCH (09:00)
[2018-07-15] MEDS: POLYETHYLENE GLYCOL 17 GM PACKET PO SCH (09:27)
--- NOTE | 2018-07-15 10:09 | PDOCDIS ---
Discharge Instructions CONDITION [id number] Patient Condition: [id number] Stable HOME CARE INSTRUCTIONS: [id number] Diet Instructions: [id number] Low Fat /Cholesterol FOLLOW UP/APPOINTMENTS Follow-up Plan Follow-up with outpatient hand tile maker in 1 week. Follow-up with primary care physician in 1 week. Small portion of meals frequently. JODY RODNEY NP Jul 15, 2018 10:08
[2018-07-15] MEDS ORDERED: METO5TAB58 PO (10:16)
[2018-07-15] MEDS ORDERED: Work Note (10:16)
[2018-07-15] MEDS ORDERED: ATOR20TA65 PO (10:16)
[2018-07-15] MEDS ORDERED: SENN-120 PO (10:16)
[2018-07-15] MEDS ORDERED: DICY10CA40 PO (10:16)
[2018-07-15] MEDS ORDERED: ESCI10TA48 PO (10:16)
[2018-07-15] MEDS ORDERED: BUME1TAB PO (10:16)
[2018-07-15] MEDS ORDERED: SPIR25TA PO (10:16)
[2018-07-15] MEDS ORDERED: FLUC100T PO (10:16)
[2018-07-15] MEDS ORDERED: PANT40TA3 PO (10:16)
[2018-07-15] MEDS ORDERED: DOCU-144 PO (10:16)
[2018-07-15] MEDS ORDERED: POLY17PO6 PO (10:16)
--- NOTE | 2018-07-15 10:27 | DS ---
Date/Time of Note Date/Time of Note DATE: 07/15/18 TIME: 10:24 Discharge Summary Admission/Discharge Info Admit Date/Time Jul 07, 2018 at 20:09 Discharge Date/Time Discharge Diagnosis 1. Abdominal pain/nausea/vomiting.-Status post EGD 07/11/2018=> Janette esop hagitis/acute gastritis without bleeding.symptoms resolved 2. Chronic systolic congestive heart failure. 3. Nonischemic cardiomyopathy 4. Pulmonary hypertension. 5. Questionable bladder abnormalities on CT scan. 6. Acute kidney injury on chronic kidney disease.Improved 7. Hyponatremia, likely secondary to congestive heart failure.STABLE 8. Depressive disorders. 9. Constipation 10. Debility. Patient Condition: Stable Consults ,GI ,cards Procedures EGD on 07/11/2018 showed Janette esophagitis/acute gastritis without evidence of bleeding. 07/07/2018. CT abdomen and pelvis. IMPRESSION: No evidence of urolithiasis, obstructive uropathy, diverticulitis or appendicitis. Cardiomegaly. Vascular calcifications. Mild interstitial edema. Question mild eccentric thickening right lateral and posterior wall urinary bladder. Suggest cystoscopic correlation. Osteoarthritis right hip joint. Hospital Course 58-year-old female with history of severe cardiomyopathy, systolic CHF, ICD placed, pulmonary hypertension,admitted with nausea, abdominal pain.. She had EGD on 07/11/2018 showed Janette esophagitis/acute gastritis without evidence of bleeding. Patient was closely monitored by our GI colleagues and was treated with PPI, Diflucan, and Bentyl along with Reglan. Pathology came negative for H. pylori, no evidence of malignancy. Patient was slowly started on a diet which she was able to tolerate. Her symptoms improved significantly. Patient also appeared depressed secondary to comorbidities for which I have recommended a inpatient psychiatric consultation which was not done for unclear reasons. Patient was started on Lexapro with improvement in her depression status. She remained pleasant and cooperative. Patient was continued on home medication for underlying cardiac conditions which includes severe nonischemic cardiomyopathy, congestive heart failure with BiVICD placed etc. Hospitalization was also noted for hyponatremia for which patient was being followed by commercial drafter. Hyponatremia is thought to be secondary to congestive heart failure and she was put on a fluid restriction with improvement in her sodium level. Patient also had abnormal urinary bladder wall thickening in the CT for which she had urology follow-up recommended outpatient cystoscopy after discharge. At this time, patient remained stable at her baseline. Labs and vital signs stable at baseline. Patient is eager to be discharged home and she requested discharge. Home health also was arranged for home safety evaluation, and nursing care as well as physical therapy. Approximately 60 m spent on coordinating the discharge on this patient. Patient was seen in collaboration with Dr. Arana. Home Meds Active Scripts Pantoprazole* (Protonix*) 40 Mg Tablet.dr, 40 MG PO AC BREAKFAST, #30 TAB Prov:RODNEY,JODY V. VERIFYING MACHINE OPERATOR 07/15/18 Metoclopramide* (Reglan*) 5 Mg Tablet, 5 MG PO TIDM A, #30 TAB Prov:RODNEY,JODY V. VERIFYING MACHINE OPERATOR 07/15/18 Sennosides* (Senna Lax*) 8.6 Mg Tablet, 2 TAB PO BID PRN for CONSTIPATION, #60 TAB Prov:RODNEY,JODY V. VERIFYING MACHINE OPERATOR 07/15/18 Polyethylene Glycol* (Miralax*) 17 Gm Powd.pack, 17 GM PO DAILY, #30 PKT Prov:RODNEY,JODY V. VERIFYING MACHINE OPERATOR 07/15/18 Docusate Sodium* (Colace*) 100 Mg Capsule, 200 MG PO DAILY, #60 CAP Prov:RODNEY,JODY V. VERIFYING MACHINE OPERATOR 07/15/18 Bumetanide* (Bumetanide*) 1 Mg Tablet, 0.5 MG PO DAILY, #30 TAB Prov:RODNEY,JODY V. VERIFYING MACHINE OPERATOR 07/15/18 Escitalopram Oxalate* (Escitalopram Oxalate*) 10 Mg Tablet, 5 MG PO DAILY, #30 TAB Prov:RODNEY,JODY V. VERIFYING MACHINE OPERATOR 07/15/18 Atorvastatin Calcium (Atorvastatin Calcium) 20 Mg Tablet, 20 MG PO HS, #30 TAB Prov:RODNEY,JODY V. VERIFYING MACHINE OPERATOR 07/15/18 Spironolactone* (Aldactone*) 25 Mg Tablet, 25 MG PO DAILY, #30 TAB Prov:RODNEY,JODY V. VERIFYING MACHINE OPERATOR 07/15/18 Dicyclomine HCl (Dicyclomine HCl) 10 Mg Capsule, 20 MG PO Q8 for 5 Days, #15 CAP Prov:RODNEY,JODY V. VERIFYING MACHINE OPERATOR 07/15/18 Fluconazole* (Diflucan*) 100 Mg Tablet, 100 MG PO DAILY for 5 Days, #5 TAB Prov:JODY RODNEY Paige VERIFYING MACHINE OPERATOR 07/15/18 [Work Note] No Conflict Check Please excuse Isreal Chairez attending work from 07/07/2018 to 07/18/2018 due to her medical condition. Thanks. Prov:JODY RODNEY Paige VERIFYING MACHINE OPERATOR 07/15/18 Reported Medications Sacubitril/Valsartan (Entresto 49 mg-51 mg Tablet) 1 Each Tablet, 1 TAB PO BID, TAB 06/30/18 Lorazepam* (Lorazepam*) 0.5 Mg Tablet, 0.5 MG PO BID PRN for ANXIETY, TAB 01/07/18 Aspirin (Low Dose Aspirin) 81 Mg Tablet.dr, 81 MG PO DAILY, #30 TAB 01/07/18 Carvedilol* (Carvedilol*) 3.125 Mg Tablet, 3.125 MG PO BID, #60 TAB 01/07/18 Discontinued Reported Medications Methylprednisolone* (Medrol* DOSE PACK) 4 Mg/Dose-Pack Tab.ds.pk, 4 MG PO . DIRECTED, PACKET Currently on last tablet of third day 07/07/18 Amoxicillin Trihydrate (Amoxicillin) 500 Mg Tablet, 500 MG PO Q8, #30 TAB 07/07/18 Spironolactone* (Aldactone*) 25 Mg Tablet, 12.5 MG PO DAILY, #30 TAB 06/30/18 Bumetanide* (Bumetanide*) 1 Mg Tablet, 2 MG PO BID, TAB 01/07/18 Follow-up Plan Follow-up with outpatient store host in 1 week. Follow-up with primary care physician in 1 week. Small portion of meals frequently. Primary Care Provider Stephan Nuñez Pending Labs Laboratory Tests Test 07/15/18 05:28 Sodium Level 128 mmol/L (135-144) Potassium Level 3.5 mmol/L (3.5-5.1) Chloride Level 90 mmol/L (97-110) Carbon Dioxide Level 26 mmol/L (21-31) Anion Gap 12 (5-13) Blood Urea Nitrogen 22 mg/dl (7-20) Creatinine 1.17 mg/dl (0.44-1.00) Est Glomerular Filtrat Rate mL/min 58 mL/min (>60) Glucose Level 116 mg/dl (70-220) Calcium Level 9.3 mg/dl (8.4-10.2) Phosphorus Level 3.2 mg/dl (2.5-4.9) Magnesium Level 1.7 mg/dl (1.7-2.5) JODY RODNEY V. VERIFYING MACHINE OPERATOR Jul 15, 2018 10:27
--- NOTE | 2018-07-15 12:12 | CONS ---
Assessment/Plan Assessment/Plan Hospital Course (Demo Recall) 58 yo female Interval hx: Amylase and lipase elevated. Lipase 1209. Amylase 221. States a bd pain resolved. Pancreas on CT of abd unremarkable. 1. Abdominal pain with emesis, rule out peptic ulcer disease or gastritis, rule out ischemic bowel. 2. Ischemic cardiomyopathy with ejection fraction of 50%. 3. Hypertension. 4. Chronic kidney disease. 5. 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 6. Pulmonary hypertension. 7. AICD. 8. Mild elevation of lipase with normal pancreas and a CAT scan. 9. Esophageal monolithiasis 10. Moderate gastritis Plan Bentyl 20 mg q 8 hr Continue with reglan Continue Diflucan and antidepressant medication Pain management Pt examined and plan of care discussed with Dr. Holt Consultation Date/Type/Reason Admit Date/Time Jul 07, 2018 at 20:09 Initial Consult Date 07/08/18 Requesting Provider: PIO CRAMER MD Date/Time of Note DATE: 07/15/18 TIME: 12:09 Exam/Review of Systems Exam Vitals Vital Signs Date Temp Pulse Resp B/P (MAP) Pulse Ox O2 O2 Flow FiO2 Time Delivery Rate 07/15/18 97.6 71 16 84/53 (63) 100 11:18 07/15/18 21 02:03 07/11/18 Room Air 16:16 07/11/18 3.0 11:38 Intake and Output 07/14/18 07/14/18 07/15/18 1414:59 22:59 06:59 IntakeIntake Total 240 ml 560 ml BalanceBalance 240 ml 560 ml Results Result Diagram: 07/14/18 0444 07/15/18 0528 Results 24hrs Laboratory Tests Test 07/15/18 05:28 Sodium Level 128 L Potassium Level 3.5 Chloride Level 90 L Carbon Dioxide Level 26 Anion Gap 12 Blood Urea Nitrogen 22 H Creatinine 1.17 H Est Glomerular Filtrat Rate mL/min 58 L Glucose Level 116 Calcium Level 9.3 Phosphorus Level 3.2 Magnesium Level 1.7 Medications Medication Current Medications IV Flush (NS 3 ml) 3 ml PER PROTOCOL IV ; Start 07/08/18 at 00:00 Acetaminophen (Tylenol Tab) 650 mg Q6H PRN PO .PAIN 1-3 OR TEMP; Start 07/08/18 at 00:00 Acetaminophen/ Hydrocodone Bitart ([place] (5/325)) 1 tab Q6H PRN PO .PAIN 4-6 Last administered on 07/14/18 16:07; Admin Dose 1 TAB; Start 07/08/18 at 00:00 Heparin Sodium (Porcine) (Heparin (5000 Units/1ml)) 5,000 unit Q12 SC Last administered on 07/15/18 08:11; Admin Dose 5,000 UNIT; Start 07/08/18 at 09:00 Albuterol/ Ipratropium (Duoneb) 3 ml Q2H RESP THERAPY PRN HHN SHORTNESS OF BREATH; Start 07/08/18 at 00:00 Aspirin (Halfprin) 81 mg DAILY PO Last administered on 07/15/18 08:02; Admin Dose 81 MG; Start 07/08/18 at 09:00 Carvedilol (Coreg) 3.125 mg BID PO Last administered on 07/14/18 21:44; Admin Dose 3.125 MG; Start 07/08/18 at 09:00 Atorvastatin Calcium (Lipitor) 20 mg HS PO Last administered on 07/14/18 21:41; Admin Dose 20 MG; Start 07/08/18 at 21:00 Miscellaneous Information Patients own medicat... BID@10,16 XX ; Start 07/08/18 at 10:00 Lorazepam (Ativan) 1 mg BID PRN PO ANXIETY Last administered on 07/14/18 21:59; Admin Dose 1 MG; Start 07/08/18 at 15:00 Metoclopramide HCl (Reglan) 5 mg Q6 IV Last administered on 07/15/18 06:24; Admin Dose 5 MG; Start 07/10/18 at 00:00 Polyethylene Glycol (Miralax) 17 gm DAILY PO Last administered on 07/15/18 09:27; Admin Dose 17 GM; Start 07/10/18 at 09:00 Pantoprazole (Protonix Tab) 40 mg DAILY@06 PO Last administered on 07/14/18 06:22; Admin Dose 40 MG; Start 07/12/18 at 06:00 Fluconazole (Diflucan) 100 mg DAILY PO Last administered on 07/15/18 08:02; Admin Dose 100 MG; Start 07/12/18 at 09:00 Escitalopram Oxalate (Lexapro) 5 mg DAILY PO Last administered on 07/15/18 08:02; Admin Dose 5 MG; Start 07/11/18 at 14:00 Morphine Sulfate (morphine) 2 mg Q6H PRN IV SEVERE PAIN LEVEL 7-10 Last administered on 07/11/18 18:03; Admin Dose 2 MG; Start 07/11/18 at 18:00 Ondansetron HCl (Zofran Inj) 4 mg Q6H PRN IV NAUSEA AND/OR VOMITING Last administered on 07/14/18 21:41; Admin Dose 4 MG; Start 07/12/18 at 14:55 Spironolactone (Aldactone) 25 mg DAILY PO Last administered on 07/15/18 08:02; Admin Dose 25 MG; Start 07/13/18 at 09:00 Senna (Senokot) 2 tab BID PRN PO CONSTIPATION Last administered on 07/14/18 06:34; Admin Dose 2 TAB; Start 07/13/18 at 09:30 Docusate Sodium (Colace) 200 mg BID PRN PO CONSTIPATION; Start 07/13/18 at 09:30 Dicyclomine HCl (Bentyl) 20 mg Q8 NGT Last administered on 07/15/18 06:24; Admin Dose 20 MG; Start 07/14/18 at 14:00 Sacubitril/ Valsartan (Entresto 24 Mg-26 Mg) 1 tab BID PO Last administered on 07/15/18 08:02; Admin Dose 1 TAB; Start 07/14/18 at 21:00 Bumetanide (Bumex) 0.5 mg DAILY PO ; Start 07/15/18 at 09:00 SRAVANTHI MAXWELL Jul 15, 2018 12:12
--- NOTE | 2018-07-15 13:41 | PN ---
DATE: 07/15/2018 SUBJECTIVE: The patient is stable. Shortness of breath has improved. The patient had episode of na usea. The patient's abdominal pain is improving. No other events noted. OBJECTIVE: VITAL SIGNS: Blood pressure is 94/53, respirations 16, pulse 61, temperature 98.6. HEENT: Head is normocephalic. NECK: Supple. HEART: Regular rate. LUNGS: Show diminished breath sounds at the base. ABDOMEN: Soft, nontender to palpation without rebound or guarding. EXTREMITIES: Negative for clubbing, cyanosis, edema. DERMATOLOGIC: No rashes. MUSCULOSKELETAL: No joint effusion. NEUROLOGIC: No change in exam. MEDICATIONS: Reviewed. LABORATORY DATA: Shows sodium 128, potassium 3.5, chloride 90, BUN 22, creatinine 1.17. ASSESSMENT AND PLAN: 1. Nonoliguric acute kidney injury with previous baseline creatinine of 1.3 mg/dL. Etiology of acut e kidney injury is secondary to cardiorenal syndrome. The patient's renal function has been fluctuat ing but overall stable. Plan is to deescalate Bumex to 0.5 mg daily. Okay with resuming Entresto pe r cardiology. Will monitor closely. 2. Hyponatremia secondary to acute kidney injury and congestive heart failure. The patient's sodium levels have been low but stable. Continue to encourage free water restriction. 3. Hypokalemia. We will replete with potassium chloride. 4. Metabolic acidemia secondary to diuretic therapy. Continue to monitor. Give intermittent Diamox as needed. 5. Mineral bone disorder. Monitor calcium and phosphorus levels. 6. Hypomagnesemia. Continue to monitor and replete as needed. 7. Congestive heart failure. The patient appears compensated. Continue medical management. Contin ue low-dose diuretic therapy. Agree with Entresto. Follow up with cardiology for further recommenda tions. 8. Abdominal pain. The patient is status post EGD with noted esophagitis, gastritis. Continue prot on pump inhibitor. 9. Arrhythmia, status post pacemaker placement. Continue to monitor. 10. History of pulmonary hypertension. 11. Acute respiratory failure, currently stable. 12. Constipation. Continue MiraLax. Dictated By: AZEEM ALTMAN/CHRISTIANO Conf#: [id number] DID#: [id number] CC: PIO CRAMER MD;*EndCC*
--- NOTE | 2018-07-15 15:31 | CONS ---
Assessment/Plan Cardiology NYHA: III Heart Failure Type: Chronic Heart Failure Type: Both Assessment/Plan Hospital Course (Demo Recall) Abdominal pain-improving Janette esophagitis Chronic systolic congestive heart failure Severe nonischemic cardia myopathy Pulmonary hypertension Acute kidney injury History of biventricular pacemaker/ICD -GI symptoms improving and able to tolerate p.o. -She denies any chest pain or shortness of breath -No evidence of decompensated congestive heart failure at the current time -restarted Entresto, continue as blood pressure and renal function tolerates -Diuretics as per nephrology Consultation Date/Type/Reason Admit Date/Time Jul 07, 2018 at 20:09 Initial Consult Date 07/08/18 Type of Consult Cardiology Requesting Provider: PIO CRAMER MD Date/Time of Note DATE: 07/15/18 TIME: 15:29 24 HR Interval Summary Free Text/Dictation Feeling much better today, able to tolerate food. Denies shortness of breath, chest pain Exam/Review of Systems Vital Signs Vitals Vital Signs Date Temp Pulse Resp B/P (MAP) Pulse Ox O2 O2 Flow FiO2 Time Delivery Rate 07/15/18 70 12:00 07/15/18 97.6 16 84/53 (63) 100 11:18 07/15/18 21 02:03 07/11/18 Room Air 16:16 07/11/18 3.0 11:38 Intake and Output 07/14/18 07/14/18 07/15/18 1515:00 23:00 07:00 IntakeIntake Total 240 ml 560 ml BalanceBalance 240 ml 560 ml Exam Constitutional: alert, oriented (No apparent distress) Head: normocephalic Respiratory: other (Coarse breath sounds bilaterally, no wheezing) Cardiovascular: regular rate and rhythm (S1-S2 heard) Gastrointestinal: soft, non-tender, bowel sounds Extremities: other (No significant edema) Labs Result Diagram: 07/14/18 0444 07/15/18 0528 Results 24hrs Laboratory Tests Test 07/15/18 05:28 Sodium Level 128 L Potassium Level 3.5 Chloride Level 90 L Carbon Dioxide Level 26 Anion Gap 12 Blood Urea Nitrogen 22 H Creatinine 1.17 H Est Glomerular Filtrat Rate mL/min 58 L Glucose Level 116 Calcium Level 9.3 Phosphorus Level 3.2 Magnesium Level 1.7 Medications Medications Current Medications IV Flush (NS 3 ml) 3 ml PER PROTOCOL IV ; Start 07/08/18 at 00:00 Acetaminophen (Tylenol Tab) 650 mg Q6H PRN PO .PAIN 1-3 OR TEMP; Start 07/08/18 at 00:00 Acetaminophen/ Hydrocodone Bitart ([place] (5/325)) 1 tab Q6H PRN PO .PAIN 4-6 Last administered on 07/14/18 16:07; Admin Dose 1 TAB; Start 07/08/18 at 00:00 Heparin Sodium (Porcine) (Heparin (5000 Units/1ml)) 5,000 unit Q12 SC Last administered on 07/15/18 08:11; Admin Dose 5,000 UNIT; Start 07/08/18 at 09:00 Albuterol/ Ipratropium (Duoneb) 3 ml Q2H RESP THERAPY PRN HHN SHORTNESS OF BREATH; Start 07/08/18 at 00:00 Aspirin (Halfprin) 81 mg DAILY PO Last administered on 07/15/18 08:02; Admin Dose 81 MG; Start 07/08/18 at 09:00 Carvedilol (Coreg) 3.125 mg BID PO Last administered on 07/14/18 21:44; Admin Dose 3.125 MG; Start 07/08/18 at 09:00 Atorvastatin Calcium (Lipitor) 20 mg HS PO Last administered on 07/14/18 21:41; Admin Dose 20 MG; Start 07/08/18 at 21:00 Miscellaneous Information Patients own medicat... BID@10,16 XX ; Start 07/08/18 at 10:00 Lorazepam (Ativan) 1 mg BID PRN PO ANXIETY Last administered on 07/14/18 21:59; Admin Dose 1 MG; Start 07/08/18 at 15:00 Metoclopramide HCl (Reglan) 5 mg Q6 IV Last administered on 07/15/18 12:33; Admin Dose 5 MG; Start 07/10/18 at 00:00 Polyethylene Glycol (Miralax) 17 gm DAILY PO Last administered on 07/15/18 09:27; Admin Dose 17 GM; Start 07/10/18 at 09:00 Pantoprazole (Protonix Tab) 40 mg DAILY@06 PO Last administered on 07/14/18 06:22; Admin Dose 40 MG; Start 07/12/18 at 06:00 Fluconazole (Diflucan) 100 mg DAILY PO Last administered on 07/15/18 08:02; Admin Dose 100 MG; Start 07/12/18 at 09:00 Escitalopram Oxalate (Lexapro) 5 mg DAILY PO Last administered on 07/15/18 08:02; Admin Dose 5 MG; Start 07/11/18 at 14:00 Morphine Sulfate (morphine) 2 mg Q6H PRN IV SEVERE PAIN LEVEL 7-10 Last administered on 07/11/18 18:03; Admin Dose 2 MG; Start 07/11/18 at 18:00 Ondansetron HCl (Zofran Inj) 4 mg Q6H PRN IV NAUSEA AND/OR VOMITING Last administered on 07/14/18 21:41; Admin Dose 4 MG; Start 07/12/18 at 14:55 Spironolactone (Aldactone) 25 mg DAILY PO Last administered on 07/15/18 08:02; Admin Dose 25 MG; Start 07/13/18 at 09:00 Senna (Senokot) 2 tab BID PRN PO CONSTIPATION Last administered on 07/14/18 06:34; Admin Dose 2 TAB; Start 07/13/18 at 09:30 Docusate Sodium (Colace) 200 mg BID PRN PO CONSTIPATION; Start 07/13/18 at 09:30 Dicyclomine HCl (Bentyl) 20 mg Q8 NGT Last administered on 07/15/18 13:17; Admin Dose 20 MG; Start 07/14/18 at 14:00 Sacubitril/ Valsartan (Entresto 24 Mg-26 Mg) 1 tab BID PO Last administered on 07/15/18 08:02; Admin Dose 1 TAB; Start 07/14/18 at 21:00 Bumetanide (Bumex) 0.5 mg DAILY PO ; Start 07/15/18 at 09:00 Gwyn Paris DO Jul 15, 2018 15:31
== END 2018-07-15 16:08 | disposition home health service (06) | DRG 392 ==
LOC: E/R 18:47 → 6WM 20:09
PROVIDERS: ADMIT Internal Medicine; ATTEND Internal Medicine
PROC: 0DB68ZX Excision of Stomach, Via Natural or Artificial Opening Endoscopic, Diagnostic (ICD-10-PCS; principal; 2018-07-11 10:30)
DX: K29.00 Acute gastritis without bleeding (principal); B37.81 Candidal esophagitis; N17.9 Acute kidney failure, unspecified; I42.9 Cardiomyopathy, unspecified; I50.22 Chronic systolic (congestive) heart failure; I13.0 Hypertensive heart and chronic kidney disease with heart failure and stage 1 through stage 4 chronic kidney disease, or unspecified chronic kidney disease; E87.3 Alkalosis; E87.1 Hypo-osmolality and hyponatremia; D75.1 Secondary polycythemia; E87.6 Hypokalemia; E83.42 Hypomagnesemia; E80.4 Gilbert syndrome; I27.20 Pulmonary hypertension, unspecified; M16.11 Unilateral primary osteoarthritis, right hip; N18.9 Chronic kidney disease, unspecified; R07.89 Other chest pain; F06.31 Mood disorder due to known physiological condition with depressive features; N32.89 Other specified disorders of bladder; K59.00 Constipation, unspecified; R53.81 Other malaise; Z95.810 Presence of automatic (implantable) cardiac defibrillator; Z87.891 Personal history of nicotine dependence; Z79.82 Long term (current) use of aspirin
CPT/HCPCS: 36415; 36600; 71045; 74176; 80048; 80053; 81003; 82043; 82150; 82550; 82553; 82803; 83690; 83735; 83880; 84100; 84155; 84300; 84484; 85025; 85610; 85730; 87081; 87086; 88104; 88305; 88312; 93005; 96374; 96375; 97116; 97162; 97530; C9113; J1120; J1644; J1940; J2060; J2270; J2405; J2765; J3480

== ENCOUNTER 2018-10-01 14:27 | Inpatient (IN) | payer MEDICARE, OTHER ==
[~2018-10-01] VITALS: Ht 175.3 cm; Wt 101.4 kg
[~2018-10-01 14:27] MED LIST changes: +ATOR20TA65 PO; +DICY10CA40 PO; +DOCU-144 PO; +ESCI10TA48 PO; +FLUC100T PO; +METO5TAB58 PO; +PANT40TA3 PO; +POLY17PO6 PO; +SENN-120 PO
[2018-10-01 14:32] VITALS: Ht 175.3 cm; Wt 101.4 kg
--- NOTE | 2018-10-01 15:12 | ERD ---
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 Patient states she did use 1 dose of metolazone on Saturday (3 days ago) which is not a medication she normally uses and then began feeling dizzy and lightheaded yesterday. She states her blood pressure usually runs low. She denies blood per rectum or melena, no fevers or chills, no chest pain or shortness of breath. She goes to cardiac rehab department 3 times weekly for exercise. ROS All systems reviewed and are negative except as per history of present illness. Medications Home Meds Active Scripts Pantoprazole* (Protonix*) 40 Mg Tablet.dr, 40 MG PO AC BREAKFAST, #30 TAB Prov:RODNEY,JODY V. PROOF TESTER 07/15/18 Metoclopramide* (Reglan*) 5 Mg Tablet, 5 MG PO TIDM A, #30 TAB Prov:RODNEY,JODY V. PROOF TESTER 07/15/18 Sennosides* (Senna Lax*) 8.6 Mg Tablet, 2 TAB PO BID PRN for CONSTIPATION, #60 TAB Prov:RODNEY,JODY V. PROOF TESTER 07/15/18 Polyethylene Glycol* (Miralax*) 17 Gm Powd.pack, 17 GM PO DAILY, #30 PKT Prov:RODNEY,JODY V. PROOF TESTER 07/15/18 Docusate Sodium* (Colace*) 100 Mg Capsule, 200 MG PO DAILY, #60 CAP Prov:RODNEY,JODY V. PROOF TESTER 07/15/18 Bumetanide* (Bumetanide*) 1 Mg Tablet, 0.5 MG PO DAILY, #30 TAB Prov:RODNEY,JODY V. PROOF TESTER 07/15/18 Escitalopram Oxalate* (Escitalopram Oxalate*) 10 Mg Tablet, 5 MG PO DAILY, #30 TAB Prov:RODNEY,JODY V. PROOF TESTER 07/15/18 Atorvastatin Calcium (Atorvastatin Calcium) 20 Mg Tablet, 20 MG PO HS, #30 TAB Prov:RODNEY,JODY V. PROOF TESTER 07/15/18 Spironolactone* (Aldactone*) 25 Mg Tablet, 25 MG PO DAILY, #30 TAB Prov:RODNEY,JODY VFish PROOF TESTER 07/15/18 Dicyclomine HCl (Dicyclomine HCl) 10 Mg Capsule, 20 MG PO Q8 for 5 Days, #15 CAP Prov:JODY RODNEY VFish PROOF TESTER 07/15/18 Fluconazole* (Diflucan*) 100 Mg Tablet, 100 MG PO DAILY for 5 Days, #5 TAB Prov:JODY RODNEY V. PROOF TESTER 07/15/18 [Work Note] No Conflict Check Please excuse Isreal Chairez attending work from 07/07/2018 to 07/18/2018 due to her medical condition. Thanks. Prov:JODY RODNEY VFish PROOF TESTER 07/15/18 Reported Medications Sacubitril/Valsartan (Entresto 49 mg-51 mg Tablet) 1 Each Tablet, 1 TAB PO BID, TAB 06/30/18 Lorazepam* (Lorazepam*) 0.5 Mg Tablet, 0.5 MG PO BID PRN for ANXIETY, TAB 01/07/18 Aspirin (Low Dose Aspirin) 81 Mg Tablet.dr, 81 MG PO DAILY, #30 TAB 01/07/18 Carvedilol* (Carvedilol*) 3.125 Mg Tablet, 3.125 MG PO BID, #60 TAB 01/07/18 Allergies Allergies: Coded Allergies: azithromycin (Verified Allergy, Unknown, STOMACH UPSET, VITTING, 07/07/18) PMhx/Soc congestive heart failure with LVEF of 20%, essential hypertension, pulmonary hypertension, anxiety, severe cardiomyopathy with biventricular AICD placement, acute kidney injury, Janette esophagitis History of Surgery: No (C/S X2, Hernia repair, Cholecystectomy, Pacemaker, Defibrillator) Anesthesia Reaction: No Hx Neurological Disorder: No Hx Respiratory Disorders: No Hx Cardiac Disorders: Yes (Pacemaker, Defibrillator,CHF) Hx Psychiatric Problems: Yes (Anxiety) Hx Miscellaneous Medical Probl: No Hx Alcohol Use: No Hx Substance Use: No Hx Tobacco Use: No FmHx Family History: No diabetes Physical Exam Vitals Vital Signs Date Temp Pulse Resp B/P (MAP) Pulse Ox O2 O2 Flow FiO2 Time Delivery Rate 10/01/18 97.4 71 24 111/72 100 14:32 (85) Physical Exam GENERAL: Well-developed, well-nourished, well-hydrated, in no apparent distress, looks nontoxic in appearance HEENT: Moist mucous membranes, pink conjunctiva, no cervical spine tenderness or step-off deformities, no goiter, no jaundice or icterus, extraocular movements intact without pain. No submandibular induration, and no pharyngeal erythema NEURO: Alert and oriented 3, cranial nerves II through XII intact bilaterally, pupils equal round reactive to light, no focal deficits or facial asymmetry, sensation intact distally Strength 5/5 in upper and lower extremities bilaterally CARDIAC: Regular rate and rhythm, no murmurs rubs or gallops LUNGS: Clear bilaterally no wheezing crackles or stridor ABDOMEN: Soft nontender, no guarding, no rigidity, no rebound, no psoas sign no obturator sign. Normoactive bowel sounds SKIN: Warm and dry to touch, no abrasions, contusions, or hematomas, no lacerations, no ecchymosis, no target lesions, and without ulcers EXTREMITIES: No clubbing cyanosis or edema, calves are bilaterally symmetrical, no Homans sign, no popliteal cord sign. Distal pulses equal and bilateral PSYCH: Normal affect without agitation or irritability Result Diagram: 10/01/18 1448 10/01/18 1448 Results 24 hrs Laboratory Tests Test 10/01/18 14:48 White Blood Count 6.3 10^3/ul Red Blood Count 4.96 10^6/ul Hemoglobin 14.3 g/dl Hematocrit 44.1 % Mean Corpuscular Volume 88.9 fl Mean Corpuscular Hemoglobin 28.8 pg Mean Corpuscular Hemoglobin Concent 32.4 g/dl Red Cell Distribution Width 15.3 % Platelet Count 228 10^3/UL Mean Platelet Volume 11.6 fl Immature Granulocytes % 0.500 % Neutrophils % 74.7 % Lymphocytes % 14.4 % Monocytes % 9.4 % Eosinophils % 0.5 % Basophils % 0.5 % Nucleated Red Blood Cells % 0.0 /100WBC Immature Granulocytes # 0.030 10^3/ul Neutrophils # 4.7 10^3/ul Lymphocytes # 0.9 10^3/ul Monocytes # 0.6 10^3/ul Eosinophils # 0.0 10^3/ul Basophils # 0.0 10^3/ul Nucleated Red Blood Cells # 0.0 10^3/ul Sodium Level 139 mmol/L Potassium Level 3.9 mmol/L Chloride Level 93 mmol/L Carbon Dioxide Level 31 mmol/L Anion Gap 15 Blood Urea Nitrogen 38 mg/dl Creatinine 2.43 mg/dl Est Glomerular Filtrat Rate mL/min 25 mL/min Glucose Level 77 mg/dl Calcium Level 10.1 mg/dl Total Bilirubin 1.4 mg/dl Direct Bilirubin 0.00 mg/dl Indirect Bilirubin 1.4 mg/dl Aspartate Amino Transf (AST/SGOT) 49 IU/L Alanine Aminotransferase (ALT/SGPT) 18 IU/L Alkaline Phosphatase 99 IU/L Troponin I 0.028 ng/ml B-Type Natriuretic Peptide 3060 PG/ML Total Protein 7.8 g/dl Albumin 4.5 g/dl Globulin 3.30 g/dl Albumin/Globulin Ratio 1.36 Lipase 236 U/L Current Medications Medications Dose Sig/Yash Start Time Status Last (Trade) Ordered Route PRN Stop Time Admin Dose Reason Admin Sodium 500 ml @ Q1H STAT 10/01/18 DC 10/01/18 Chloride 500 mls/hr IV 15:26 10/01/18 15:36 16:25 Procedures/MDM IV line was established patient was placed on monitoring engineer rhythm strip revealed a wide-complex rhythm at 70 bpm with upright P and T waves. Patient was afebrile Chest X-ray 1V Interpreted by me: Soft Tissue: No acute abnormalities Bones: No acute abnormalities Mediastinum/Cardiac Silhouette/Lungs: No acute abnormalities EKG performed, read by me revealed a paced rhythm rate controlled at 70 bpm, left axis deviation, no concerning ST elevations or depressions noted I administered 500 cc normal saline IV for hypotension. CBC was normal, electrolytes revealed acute kidney injury consistent with her history with a BUN/creatinine of 38/2.4, troponin was negative, liver function tests unremarkable, BNP elevated. Urine analysis has been ordered results are pending I will follow-up. Patient systolic blood pressure in the mid 80s although she is asymptomatic laying down she does experience dizziness when attempting to ambulate, I suspect with IV fluids her blood pressure will go up although this will have to be done gradually over the next 24 hours as she does have severe heart failure. Patient will be admitted to telemetry setting. Departure Diagnosis: Primary Impression: Hypotension Hypotension type: unspecified hypotension type Qualified Codes: I95.9 - Hypotension, unspecified Additional Impression: Dizziness Condition: BRYCE Manjarrez MD Oct 01, 2018 15:12
[2018-10-01] MEDS ORDERED: SOD CHLORIDE 0.9% 500 ML IV STA (15:26)
[2018-10-01] MEDS ORDERED: CEFTRIAXONE 1 GM/50 ML (PMX) 50 ML IVPB ONE (18:00)
[2018-10-01] MEDS ORDERED: ACETAMINOPHEN 325 MG TAB PO PRN (21:00)
[2018-10-01] MEDS ORDERED: ONDANSETRON 4 MG INJ IV PRN (21:00)
[2018-10-01] MEDS ORDERED: SENNA TAB PO PRN (21:00)
[2018-10-01] MEDS ORDERED: ALBUTEROL/IPRATROPIUM (NEB) 3 ML AMP HHN PRN (21:00)
[2018-10-01] MEDS ORDERED: ATORVASTATIN 20 MG TAB PO SCH (21:00)
[2018-10-01] MEDS ORDERED: LORAZEPAM 0.5 MG TAB PO PRN (21:00)
[2018-10-01] MEDS ORDERED: NACL 0.9% 3 ML SYG IV SCH (21:00)
[2018-10-01] MEDS: HEPARIN 5,000 UNIT/1 ML VIAL SC SCH (21:19)
[2018-10-01] MEDS: MIDODRINE 5 MG TAB PO SCH (21:21)
[2018-10-01] MEDS ORDERED: SOD CHLORIDE 0.9% 250 ML IV ONE (23:00)
[2018-10-02] VITALS (7 sets, daily range): BP systolic 77–103; BP diastolic 50–57; PULSE 60–79; RESP 18–19
[2018-10-02] MEDS ORDERED: SOD CHLORIDE 0.9% 250 ML IV ONE (04:00)
--- NOTE | 2018-10-02 06:02 | HP ---
Date/Time of Note Date/Time of Note DATE: 10/01/18 TIME: 23:00 Assessment/Plan VTE Prophylaxis Pharmacological prophylaxis: heparin Lines/Catheters IV Catheter Type (from Nrs): Peripheral IV Urinary Cath still in place: No Assessment/Plan Assessment/Plan 1. Hypotension -Gentle hydration given systolic dysfunction -Telemetry monitoring -Cardiology consult -Patient reported that her systolic blood pressure normally is around 85. 2. Nonischemic cardiomyopathy with EF of 20% -Hold ACEI, BB and Aldactone for now given hypotension -Resume Bumex when no longer hypotensive 3. Acute on CKD -Gentle hydration for now -Nephrology consult -Although not included in her home medication, patient reported that metolazone has been added to her Bumex and has been diuresing well. 4. Dyslipidemia: Continue statin Result Diagram: 10/01/18 1448 10/01/18 1448 Results 24hrs Laboratory Tests Test 10/01/18 14:48 10/01/18 17:22 White Blood Count 6.3 # Red Blood Count 4.96 Hemoglobin 14.3 Hematocrit 44.1 Mean Corpuscular Volume 88.9 Mean Corpuscular Hemoglobin 28.8 L Mean Corpuscular Hemoglobin Concent 32.4 Red Cell Distribution Width 15.3 H Platelet Count 228 Mean Platelet Volume 11.6 H Immature Granulocytes % 0.500 H Neutrophils % 74.7 Lymphocytes % 14.4 L Monocytes % 9.4 Eosinophils % 0.5 Basophils % 0.5 Nucleated Red Blood Cells % 0.0 Immature Granulocytes # 0.030 Neutrophils # 4.7 Lymphocytes # 0.9 Monocytes # 0.6 Eosinophils # 0.0 Basophils # 0.0 Nucleated Red Blood Cells # 0.0 Sodium Level 139 Potassium Level 3.9 Chloride Level 93 L Carbon Dioxide Level 31 Anion Gap 15 H Blood Urea Nitrogen 38 H Creatinine 2.43 H Est Glomerular Filtrat Rate mL/min 25 L Glucose Level 77 Calcium Level 10.1 Total Bilirubin 1.4 H Direct Bilirubin 0.00 Indirect Bilirubin 1.4 H Aspartate Amino Transf (AST/SGOT) 49 H Alanine Aminotransferase (ALT/SGPT) 18 Alkaline Phosphatase 99 Troponin I 0.028 B-Type Natriuretic Peptide 3060 H Total Protein 7.8 Albumin 4.5 Globulin 3.30 H Albumin/Globulin Ratio 1.36 Lipase 236 Urine Color YELLOW Urine Clarity CLOUDY A Urine pH 6.0 Urine Specific Jud 1.009 Urine Ketones NEGATIVE Urine Nitrite NEGATIVE Urine Bilirubin NEGATIVE Urine Urobilinogen NEGATIVE Urine Leukocyte Esterase 3+ H Urine Microscopic RBC 7 H Urine Microscopic WBC > 182 H Urine Squamous Epithelial Cells MODERATE Urine Bacteria FEW A Urine Hemoglobin 1+ H Urine Glucose NEGATIVE Urine Total Protein NEGATIVE HPI/ROS Admit Date/Time Admit Date/Time Oct 01, 2018 at 16:46 Hx of Present Illness Patient is a 58-year-old female with a history of substance abuse, nonischemic cardiomyopathy with EF of 20%, AICD, pulmonary hypertension, CKD, depression, Janette esophagitis, gastritis. Patient was at cardiac rehab when she was found to be hypotensive with systolic blood pressure in the 70s. She was sent to ER for evaluation. Initially patient was complaining of dizziness, but now overall she feels well. No chest pain, no acute shortness of breath. In the ER her systolic blood pressure was ranging in the 70s and in the 90s. She received 500 cc of NS. She said her systolic blood pressure normally is around 85. Her creatinine is 2.43 from 1.17 in June of this year. She said metolazone has been added to her Bumex. PMH/Family/Social Past Medical History Medical History: other (See HPI) Medications Current Medications IV Flush (NS 3 ml) 3 ml PER PROTOCOL IV ; Start 10/01/18 at 21:00 Ondansetron HCl (Zofran Inj) 4 mg Q6H PRN IV NAUSEA/VOMITING; Start 10/01/18 at 21:00 Acetaminophen (Tylenol Tab) 650 mg Q6H PRN PO .PAIN 1-3 OR TEMP; Start 10/01/18 at 21:00 Heparin Sodium (Porcine) (Heparin (5000 Units/1ml)) 5,000 unit Q12 SC Last administered on 10/01/18at 21:19; Admin Dose 5,000 UNIT; Start 10/01/18 at 21:00 Albuterol/ Ipratropium (Duoneb) 3 ml Q2H RESP THERAPY PRN HHN SHORTNESS OF BREATH; Start 10/01/18 at 21:00 Aspirin (Halfprin) 81 mg DAILY PO ; Start 10/02/18 at 09:00 Atorvastatin Calcium (Lipitor) 20 mg HS PO Last administered on 10/01/18at 21:19; Admin Dose 20 MG; Start 10/01/18 at 21:00 Docusate Sodium (Colace) 200 mg DAILY PO ; Start 10/02/18 at 09:00 Escitalopram Oxalate (Lexapro) 5 mg DAILY PO ; Start 10/02/18 at 09:00 Lorazepam (Ativan) 0.5 mg BID PRN PO ANXIETY; Start 10/01/18 at 21:00 Pantoprazole (Protonix Tab) 40 mg AC BREAKFAST PO ; Start 10/02/18 at 07:00 Polyethylene Glycol (Miralax) 17 gm DAILY PO ; Start 10/02/18 at 09:00 Senna (Senokot) 2 tab BID PRN PO CONSTIPATION; Start 10/01/18 at 21:00 Midodrine (Proamatine) 10 mg TID PO Last administered on 10/01/18at 21:21; Admin Dose 10 MG; Start 10/01/18 at 21:00 Coded Allergies: azithromycin (Verified Allergy, Unknown, STOMACH UPSET, VITTING, 07/07/18) Past Surgical History Past Surgical Hx: other (See HPI) Family History Significant Family History: no pertinent family hx Social History Alcohol Use: other Smoking Status: Never smoker Drug Use: other (Meth) Exam/Review of Systems Vital Signs Vitals Vital Signs Date Temp Pulse Resp B/P (MAP) Pulse Ox O2 O2 Flow FiO2 Time Delivery Rate 10/02/18 97.9 70 18 78/51 (60) 96 04:00 10/01/18 Room Air 23:05 Exam Constitutional: alert, oriented, well developed Head: normocephalic, atraumatic Eyes: EOMI, PERRL Respiratory: clear to auscultation, normal air movement Cardiovascular: regular rate and rhythm, nl pulses Extremities: normal pulses PIO CRAMER MD Oct 02, 2018 06:02
[2018-10-02] MEDS: PANTOPRAZOLE (EC) 40 MG TAB PO SCH ×2 (07:25→09:03)
[2018-10-02] MEDS ORDERED: DOCUSATE SODIUM 100 MG CAP PO SCH (09:00)
[2018-10-02] MEDS ORDERED: POLYETHYLENE GLYCOL 17 GM PACKET PO SCH (09:00)
[2018-10-02] MEDS ORDERED: ASPIRIN (EC) 81 MG TAB PO SCH (09:00)
[2018-10-02] MEDS: ESCITALOPRAM 10 MG TAB PO SCH ×2 (09:00→09:03)
[2018-10-02] MEDS: MIDODRINE 5 MG TAB PO SCH ×3 (09:02→17:40)
[2018-10-02] MEDS: HEPARIN 5,000 UNIT/1 ML VIAL SC SCH (09:05)
--- NOTE | 2018-10-02 12:43 | PDOCDIS ---
Discharge Instructions CONDITION [id number] Patient Condition: [id number] Good HOME CARE INSTRUCTIONS: [id number] Diet Instructions: [id number] Reduced Sodium ACTIVITY: [id number] Activity Restrictions: [id number] No Restrictions FOLLOW UP/APPOINTMENTS Follow-up Plan Follow-up with your PCP and digital composer as scheduled DIDIER HERRERA Oct 02, 2018 12:43
--- NOTE | 2018-10-02 12:52 | DS ---
Date/Time of Note Date/Time of Note DATE: 10/02/18 TIME: 12:43 Discharge Summary Admission/Discharge Info Admit Date/Time Oct 01, 2018 at 16:46 Discharge Date/Time October 02, 2018 Discharge Diagnosis 1. Hypotension secondary to dehydration-resolved -Patient had taken metolazone in addition to her home Bumex with significant urine output and hence drop in blood pressure -Patient is status post gentle hydration with stabilization of blood pressure 2. Nonischemic cardiomyopathy with EF of 20% -Resume home meds including Bumex, patient does not have any further metolazone and does not require it at this time -Outpatient follow-up with cardiology 3. Acute on CKD secondary to hemodynamics and dehydration from overdiuresis -Renal function has improved with mild hydration and holding diuretics -Nephrology consultation appreciated, creatinine has trended down and patient is clear for DC -Patient to refrain from using further metolazone at this time 4. Dyslipidemia: Continue statin Patient Condition: Good Hospital Course Patient is a pleasant 38-year-old female with a history of nonischemic cardiomyopathy with an EF of 20%, CKD who presents with hypotension and acute kidney injury secondary to dehydration from overdiuresis. Patient took metolazone in addition to her home Bumex which caused her to have significant urine output as she does not typically take metolazone. Patient subsequently became dizzy and presented to the ED where she was noted to have acute kidney injury. Patient's diuretics were held and was given gentle IV fluids with stabilization of blood pressure and renal function. Patient was asymptomatic on the day of discharge and clear for DC per nephrology, of note creatinine did improve. Patient did not have any further metolazone left to take and did not require further metolazone but was to continue her usual home diuretics. Of note patient was only given a few tabs of metolazone only in the event that she has significant shortness of breath, patient felt as though she was developing heart failure exacerbation and took the pills which caused her to have significant diuresis. On the day of discharge patient's vitals, labs and physical exam are stable. Home Meds Active Scripts Pantoprazole* (Protonix*) 40 Mg Tablet., 40 MG PO AC BREAKFAST, #30 TAB Prov:JODY RODNEY V. CUSTODIAN BLOOD BANK 07/15/18 Sennosides* (Senna Lax*) 8.6 Mg Tablet, 2 TAB PO BID PRN for CONSTIPATION, #60 TAB Prov:RODNEY,JODY V. CUSTODIAN BLOOD BANK 07/15/18 Polyethylene Glycol* (Miralax*) 17 Gm Powd.pack, 17 GM PO DAILY, #30 PKT Prov:RODNEYJODY V. CUSTODIAN BLOOD BANK 07/15/18 Docusate Sodium* (Colace*) 100 Mg Capsule, 200 MG PO DAILY, #60 CAP Prov:RODNEYSEANA V. CUSTODIAN BLOOD BANK 07/15/18 Bumetanide* (Bumetanide*) 1 Mg Tablet, 0.5 MG PO DAILY, #30 TAB Prov:RODNEYSEANA V. CUSTODIAN BLOOD BANK 07/15/18 Escitalopram Oxalate* (Escitalopram Oxalate*) 10 Mg Tablet, 5 MG PO DAILY, #30 TAB Prov:RODNEYSEANA V. CUSTODIAN BLOOD BANK 07/15/18 Atorvastatin Calcium (Atorvastatin Calcium) 20 Mg Tablet, 20 MG PO HS, #30 TAB Prov:RODNEYJODY V. CUSTODIAN BLO[employer] BANK 07/15/18 Spironolactone* (Aldactone*) 25 Mg Tablet, 25 MG PO DAILY, #30 TAB Prov:RODNEYSEANA V. CUSTODIAN [employer]LO[employer] BANK 07/15/18 Reported Medications Sacubitril/Valsartan (Entresto 49 mg-51 mg Tablet) 1 Each Tablet, 1 TAB PO BID, TAB 06/30/18 Lorazepam* (Lorazepam*) 0.5 Mg Tablet, 0.5 MG PO BID PRN for ANXIETY, TAB 01/07/18 Aspirin (Low Dose Aspirin) 81 Mg Tablet.dr, 81 MG PO DAILY, #30 TAB 01/07/18 Carvedilol* (Carvedilol*) 3.125 Mg Tablet, 3.125 MG PO BID, #60 TAB 01/07/18 Discontinued Scripts Metoclopramide* (Reglan*) 5 Mg Tablet, 5 MG PO TIDM A, #30 TAB Prov:RODNEYJODY BRODY V. CUSTODIAN [employer]LO[employer] BANK 07/15/18 Dicyclomine HCl (Dicyclomine HCl) 10 Mg Capsule, 20 MG PO Q8 for 5 Days, #15 CAP Prov:RODNEYJODY V. CUSTODIAN BLO[employer] BANK 07/15/18 Fluconazole* (Diflucan*) 100 Mg Tablet, 100 MG PO DAILY for 5 Days, #5 TAB Prov:JODY RODNEY NP 07/15/18 [Work Note] No Conflict Check Please excuse Isreal Chairez attending work from 07/07/2018 to 07/18/2018 due to her medical condition. Thanks. Prov:JODY RODNEY NP 07/15/18 Follow-up Plan Follow-up with your PCP and radiophone operator as scheduled Primary Care Provider Stephan Nuñez Time spent on discharge: > 30 minutes DIDIER HERRERA Oct 02, 2018 12:52
--- NOTE | 2018-10-02 15:22 | CONS ---
DATE OF ADMISSION: 10/01/2018 DATE OF CONSULTATION: 10/02/2018 TYPE OF CONSULTATION: Nephrology. REASON FOR CONSULTATION: Acute kidney injury. PHYSICIAN REQUESTING CONSULT: Dr. Bray. HISTORY OF PRESENT ILLNESS: This is a 58-year-old female well known to me with a past medical histor y of cardiomyopathy with ejection fraction of 20%, history of biventricular pacemaker placement, hist ory of AICD placement, history of mitral aortic valve disease, history of pulmonary hypertension, his tory of chronic kidney disease stage III secondary to cardiorenal syndrome with previous baseline cre atinine around 1.3 to 1.5 mg/dL, who presents to [facility] with hypotension. The patient states that she took an extra dose of diuretics 1 day ago. Following that, the patient start ed feeling lightheaded, dizziness. The patient had a blood pressure checked and was informed that sh janine was significantly hypotensive. As a result, she was brought into the emergency room. The patient in the emergency room was noted to be hypertensive with systolic pressures in 70s. The patient recei sarah a bolus of IV fluids and was admitted to med/surg telemetry for further evaluation. In terms of patient's renal history, the patient has underlying chronic kidney disease with previous baseline creatinines ranging between 1.2 to 1.5 mg/dL. On admission, the patient's creatinine 2.43 m g/dL which is improved with IV fluids to 2.0 mg/dL. The patient denies any hemoptysis, hematemesis o r hematochezia. PAST MEDICAL HISTORY: As stated above, history of cardiomyopathy, ejection fraction 20%, history of CKD, history of dyslipidemia, history of acute kidney injury, history of anxiety disorder, history of valvular heart disease, history of pulmonary hypertension. PAST SURGICAL HISTORY: Status post AICD placement, status post pacemaker placement, status post chol ecystectomy. FAMILY HISTORY: No family history of kidney disease. SOCIAL HISTORY: Does not drink, smoke or do drugs. MEDICATIONS: The patient's medications have been reviewed. REVIEW OF SYSTEMS: A 14-point review of systems conducted. Pertinent positives stated in HPI, other martinez negative. PHYSICAL EXAMINATION: VITAL SIGNS: Blood pressure is 120/76, respirations 16, pulse 72, temperature 98.6. HEENT: Head is normocephalic. NECK: Supple. HEART: Regular rate. LUNGS: Show diminished breath sounds at the base. ABDOMEN: Soft, nontender to palpation without rebound or guarding. EXTREMITIES: Negative for clubbing, cyanosis, no edema. DERMATOLOGIC: No rashes. MUSCULOSKELETAL: No joint effusion. NEUROLOGIC: No focal deficits. LABORATORY DATA: Reviewed. IMAGING STUDIES: Have been reviewed. ASSESSMENT AND PLAN: 1. Nonoliguric acute kidney injury on top of chronic kidney disease with previous baseline creatinin e around 1.2 to 1.5 mg/dL. Etiology of current acute kidney injury is secondary to diuretics, volume depletion. The patient's renal function has improved after being given a course of IV fluids. Ramirez mmendation at this point would be to continue current medical management. Would resume diuretic ther apy in approximately 24 hours. The patient is clinically euvolemic. No evidence of failure on exam. Okay for patient to be discharged from renal standpoint and to have a lab check in 2 to 3 days. Sh e will follow up with primary care physician. Otherwise, would continue current treatment plan, supp ortive care, renally dose all meds. 2. History of cardiomyopathy with ejection fraction 20%. The patient is currently compensated. We will continue current medical management. Would continue to hold diuretic therapy, consider resumpti on of diuretic therapy within 24 hours. Continue Entresto. 3. History of hypertension. We will continue blood pressure regimen. Monitor closely. 4. Dyslipidemia. Continue statin therapy. 5. History of pulmonary hypertension. Thank you, Dr. Bray, for this interesting consult. It will be a pleasure to follow patient with perez foy throughout the hospital course. Dictated By: AZEEM ALTMAN/NTS Conf#: [id number] DID#: [id number] CC: DIDIER BRAY MD;*EndCC*
== END 2018-10-02 18:00 | disposition home or self-care (01) | DRG 315 ==
LOC: E/R 14:27 → TEL 16:46
PROVIDERS: ADMIT Internal Medicine; ATTEND Internal Medicine
DX: I95.89 Other hypotension (principal); N17.9 Acute kidney failure, unspecified; I42.9 Cardiomyopathy, unspecified; E86.0 Dehydration; N18.9 Chronic kidney disease, unspecified; E78.5 Hyperlipidemia, unspecified; N18.3 Chronic kidney disease, stage 3 (moderate); Z95.810 Presence of automatic (implantable) cardiac defibrillator; T50.2X5A Adverse effect of carbonic-anhydrase inhibitors, benzothiadiazides and other diuretics, initial encounter
CPT/HCPCS: 36415; 71045; 80053; 80061; 81001; 82550; 82553; 83605; 83690; 83735; 83880; 84484; 85025; 87086; 93005; 93798; J0696; J1644; J7040

== ENCOUNTER 2018-10-07 10:18 | Observation (INO) | payer MEDICARE, OTHER ==
[~2018-10-07] VITALS: Ht 175.3 cm; Wt 102.6 kg
[~2018-10-07 10:18] MED LIST changes: -DICY10CA40 PO; -FLUC100T PO; -METO5TAB58 PO; -Work Note
[2018-10-07] MEDS ORDERED: ONDANSETRON 4 MG INJ IV STA (10:32)
[2018-10-07] MEDS ORDERED: morphine 4 MG/ML VIAL IV STA (10:32)
[2018-10-07] MEDS ORDERED: LORA0.5T PO (12:02)
[2018-10-07] MEDS ORDERED: BUME1TAB PO (12:04)
[2018-10-07] MEDS ORDERED: ASPI-817 PO (12:05)
[2018-10-07] MEDS ORDERED: CARV3.1260 PO (12:05)
[2018-10-07] MEDS ORDERED: SPIR25TA PO (12:06)
--- NOTE | 2018-10-07 13:09 | ERD ---
ER Documentation Chief Complaint Chief Complaint vomiting HPI Patient is a 58-year-old female with CHF who presents with abdominal pain and vomiting. The patient feels tired. She went to cardiac rehab and was going to get her echocardiogram but got sick afterwards. She had vomiting which started yesterday. She denies bleeding. She has sharp epigastric pain which comes and goes. She has no treatment as of yet. Her primary doctor is Dr. Nuñez. ROS All systems reviewed and are negative except as per history of present illness. Medications Home Meds Reported Medications Spironolactone* (Aldactone*) 25 Mg Tablet, 12.5 MG PO DAILY, #30 TAB 10/07/18 Aspirin* (Aspirin* EC) 81 Mg Tablet.dr, 81 MG PO DAILY, TAB 10/07/18 Carvedilol* (Carvedilol*) 3.125 Mg Tablet, 3.125 MG PO BID, #60 TAB 10/07/18 Bumetanide* (Bumetanide*) 1 Mg Tablet, 2 MG PO BID, TAB 10/07/18 Lorazepam* (Lorazepam*) 0.5 Mg Tablet, 0.5 MG PO BID PRN for ANXIETY, TAB 10/07/18 Discontinued Reported Medications Sacubitril/Valsartan (Entresto 49 mg-51 mg Tablet) 1 Each Tablet, 1 TAB PO BID, TAB 06/30/18 Lorazepam* (Lorazepam*) 0.5 Mg Tablet, 0.5 MG PO BID PRN for ANXIETY, TAB 01/07/18 Aspirin (Low Dose Aspirin) 81 Mg Tablet.dr, 81 MG PO DAILY, #30 TAB 01/07/18 Carvedilol* (Carvedilol*) 3.125 Mg Tablet, 3.125 MG PO BID, #60 TAB 01/07/18 Discontinued Scripts Pantoprazole* (Protonix*) 40 Mg Tablet.dr, 40 MG PO AC BREAKFAST, #30 TAB Prov:RODNEY,JODY V. TECHNICAL TRAINER 07/15/18 Sennosides* (Senna Lax*) 8.6 Mg Tablet, 2 TAB PO BID PRN for CONSTIPATION, #60 TAB Prov:RODNEY,JODY V. TECHNICAL TRAINER 07/15/18 Polyethylene Glycol* (Miralax*) 17 Gm Powd.pack, 17 GM PO DAILY, #30 PKT Prov:RODNEY,JODY V. TECHNICAL TRAINER 07/15/18 Docusate Sodium* (Colace*) 100 Mg Capsule, 200 MG PO DAILY, #60 CAP Prov:RODNEY,JODY V. TECHNICAL TRAINER 07/15/18 Bumetanide* (Bumetanide*) 1 Mg Tablet, 0.5 MG PO DAILY, #30 TAB Prov:RODNEY,JODY V. TECHNICAL TRAINER 07/15/18 Escitalopram Oxalate* (Escitalopram Oxalate*) 10 Mg Tablet, 5 MG PO DAILY, #30 TAB Prov:RODNEYSEANA V. TECHNICAL TRAINER 07/15/18 Atorvastatin Calcium (Atorvastatin Calcium) 20 Mg Tablet, 20 MG PO HS, #30 TAB Prov:RODNEYSEANA V. TECHNICAL TRAINER 07/15/18 Spironolactone* (Aldactone*) 25 Mg Tablet, 25 MG PO DAILY, #30 TAB Prov:RODNEY,JODY V. TECHNICAL TRAINER 07/15/18 Metoclopramide* (Reglan*) 5 Mg Tablet, 5 MG PO TIDM A, #30 TAB Prov:SEAN RODNEYA V. TECHNICAL TRAINER 07/15/18 Dicyclomine HCl (Dicyclomine HCl) 10 Mg Capsule, 20 MG PO Q8 for 5 Days, #15 CAP Prov:RODNEYSEANA Yudith. TECHNICAL TRAINER 07/15/18 Fluconazole* (Diflucan*) 100 Mg Tablet, 100 MG PO DAILY for 5 Days, #5 TAB Prov:SEAN RODNEYA V. TECHNICAL TRAINER 07/15/18 [Work Note] No Conflict Check Please excuse Ms. Jiménez Diliawalter attending work from 07/07/2018 to 07/18/2018 due to her medical condition. Thanks. Prov:JODY RODNEY V. TECHNICAL TRAINER 07/15/18 Allergies Allergies: Coded Allergies: azithromycin (Verified Allergy, Unknown, STOMACH UPSET, VITTING, 10/07/18) PMhx/Soc History of Surgery: Yes (C/S X2, Hernia repair, Cholecystectomy, Pacemaker, Defibrillator) Anesthesia Reaction: No Hx Neurological Disorder: No Hx Respiratory Disorders: No Hx Cardiac Disorders: Yes (Pacemaker, Defibrillator,CHF) Hx Psychiatric Problems: Yes (anxiety) Hx Miscellaneous Medical Probl: No Hx Alcohol Use: No Hx Substance Use: No Hx Tobacco Use: No Smoking Status: Never smoker FmHx Family History: coronary disease Physical Exam Vitals Vital Signs Date Temp Pulse Resp B/P (MAP) Pulse Ox O2 O2 Flow FiO2 Time Delivery Rate 10/07/18 98.1 84 18 123/76 95 Room Air 10:56 (92) 10/07/18 98.1 84 18 123/76 95 10:21 (92) Physical Exam Const: Moderate distress Head: Atraumatic Eyes: Normal Conjunctiva ENT: Normal External Ears, Nose and Mouth. Neck: Full range of motion. No meningismus. Resp: Clear to auscultation bilaterally Cardio: Regular rate and rhythm, no murmurs Abd: Soft, acute epigastric tenderness to palpation without rebound or guarding Skin: No petechiae or rashes Back: No midline or flank tenderness Ext: No cyanosis, or edema Neur: Awake and alert Psych: Normal Mood and Affect Result Diagram: 10/07/18 1043 10/07/18 1043 Results 24 hrs Laboratory Tests Test 10/07/18 10:43 White Blood Count 10.9 10^3/ul Red Blood Count 4.71 10^6/ul Hemoglobin 13.5 g/dl Hematocrit 42.4 % Mean Corpuscular Volume 90.0 fl Mean Corpuscular Hemoglobin 28.7 pg Mean Corpuscular Hemoglobin Concent 31.8 g/dl Red Cell Distribution Width 15.1 % Platelet Count 234 10^3/UL Mean Platelet Volume 11.3 fl Immature Granulocytes % 0.600 % Neutrophils % 85.8 % Lymphocytes % 6.4 % Monocytes % 7.1 % Eosinophils % 0.0 % Basophils % 0.1 % Nucleated Red Blood Cells % 0.0 /100WBC Immature Granulocytes # 0.060 10^3/ul Neutrophils # 9.3 10^3/ul Lymphocytes # 0.7 10^3/ul Monocytes # 0.8 10^3/ul Eosinophils # 0.0 10^3/ul Basophils # 0.0 10^3/ul Nucleated Red Blood Cells # 0.0 10^3/ul Sodium Level 139 mmol/L Potassium Level 4.2 mmol/L Chloride Level 98 mmol/L Carbon Dioxide Level 25 mmol/L Anion Gap 16 Blood Urea Nitrogen 34 mg/dl Creatinine 1.65 mg/dl Est Glomerular Filtrat Rate mL/min 39 mL/min Glucose Level 167 mg/dl Calcium Level 10.3 mg/dl Total Bilirubin 2.5 mg/dl Direct Bilirubin 0.00 mg/dl Indirect Bilirubin 2.5 mg/dl Aspartate Amino Transf (AST/SGOT) 34 IU/L Alanine Aminotransferase (ALT/SGPT) 19 IU/L Alkaline Phosphatase 108 IU/L Troponin I 0.070 ng/ml Total Protein 8.2 g/dl Albumin 4.8 g/dl Globulin 3.40 g/dl Albumin/Globulin Ratio 1.41 Lipase 95 U/L Current Medications Medications Dose Sig/Yash Start Time Status Last (Trade) Ordered Route PRN Stop Time Admin Dose Reason Admin Morphine 4 mg ONCE STAT 10/07/18 DC 10/07/18 Sulfate IV 10:32 10/07/18 10:38 (morphine) 10:33 Ondansetron 4 mg ONCE STAT 10/07/18 DC 10/07/18 HCl (Zofran IV 10:32 10/07/18 10:38 Inj) 10:33 Ondansetron 4 mg BRIDGE ORDER 10/07/18 HCl (Zofran PRN IV 13:30 Inj) NAUSEA/VOMITI 10/08/18 13:29 NG 650 mg ER BRIDGE 10/07/18 Acetaminophen PRN PO 13:30 (Tylenol .MILD PAIN 10/08/18 13:29 Tab) 1-3 OR TEMP Procedures/MDM EKG read by me: Rate/Rhythm: Regular rate and rhythm at a normal rate Intervals: Normal Impression: No evidence of ischemia or arrhythmia Patient is a 58-year-old female with CHF who presents with abdominal pain and vomiting. She was found to have mild acute renal failure as well. I doubt appendicitis, pancreatitis, or cholecystitis. Patient will be admitted to the care of the panel team to a medical surgical bed. She was given morphine and Zofran. Departure Diagnosis: Primary Impression: ARF (acute renal failure) Acute renal failure type: unspecified Qualified Codes: N17.9 - Acute kidney failure, unspecified Additional Impressions: Abdominal pain Abdominal location: epigastric Qualified Codes: R10.13 - Epigastric pain Vomiting Vomiting type: unspecified Vomiting Intractability: non-intractable Nausea presence: with nausea Qualified Codes: R11.2 - Nausea with vomiting, unspecified Condition: NILDA Cordon MD Oct 07, 2018 13:09
[2018-10-07] MEDS ORDERED: ONDANSETRON 4 MG INJ IV PRN (13:30)
[2018-10-07] MEDS ORDERED: ACETAMINOPHEN 325 MG TAB PO PRN ×2 (13:30→14:30)
--- NOTE | 2018-10-07 13:51 | HP ---
Date/Time of Note Date/Time of Note DATE: 10/07/18 TIME: 13:48 Assessment/Plan VTE Prophylaxis Pharmacological prophylaxis: heparin Lines/Catheters IV C[facility]ter Type [facility]from [facility] Saline Lock Assessment/Plan Hospital Course 58-year-old female with comorbidities including cardiomyopathy status post AICD placement, essential hypertension, pulmonary hypertension, chronic kidney disease, obesity, candidal esophagitis, and anxiety disorder who came to the emergency room with chief complaint of abdominal pain, nausea/vomiting, diarrhea, and poor oral intake, who will be admitted to inpatient setting for further treatment and evaluation. 1. Acute abdominal pain. Etiology unclear. The patient has prior history of candidal esophagitis and gastritis. Start the patient on PPI. Obtain CT scan of the abdomen and pelvis. Obtain gastroenterology consult. 2. Chronic kidney disease. Use nephrotoxic drugs with caution. Obtain nephrology consult. 3. Essential hypertension. Resume antihypertensives. 4. Pulmonary hypertension. Continue supplemental oxygen. 5. Cardiomyopathy. Status post AICD placement. Continue beta-blockers and aldosterone antagonists. Obtain cardiology consult. 6. Anxiety disorder. Continue PRN anxiolytics. Plan: The patient will be admitted to inpatient telemetry floor. The patient will be started on a clear liquid diet if she can tolerate. The patient will be started on DVT prophylaxis. The patient will remain a full code. Activities will be as tolerated. The rest of the patient's management will be based on the clinical course, inputs from consultants, and the results of diagnostic studies. Based on the patient's clinical presentation, she most probably requires at least 2 midnights' stay for further management and evaluation of her clinical presentation. The patient was seen in collaboration with Dr. Gaytan. Result Diagram: 10/07/18 1043 10/07/18 1043 Results 24hrs Laboratory Tests Test 10/07/18 10:43 White Blood Count 10.9 #H Red Blood Count 4.71 Hemoglobin 13.5 Hematocrit 42.4 Mean Corpuscular Volume 90.0 Mean Corpuscular Hemoglobin 28.7 L Mean Corpuscular Hemoglobin Concent 31.8 L Red Cell Distribution Width 15.1 H Platelet Count 234 Mean Platelet Volume 11.3 H Immature Granulocytes % 0.600 H Neutrophils % 85.8 H Lymphocytes % 6.4 L Monocytes % 7.1 Eosinophils % 0.0 Basophils % 0.1 Nucleated Red Blood Cells % 0.0 Immature Granulocytes # 0.060 H Neutrophils # 9.3 H Lymphocytes # 0.7 L Monocytes # 0.8 Eosinophils # 0.0 Basophils # 0.0 Nucleated Red Blood Cells # 0.0 Sodium Level 139 Potassium Level 4.2 Chloride Level 98 Carbon Dioxide Level 25 Anion Gap 16 H Blood Urea Nitrogen 34 H Creatinine 1.65 H Est Glomerular Filtrat Rate mL/min 39 L Glucose Level 167 Calcium Level 10.3 H Total Bilirubin 2.5 H Direct Bilirubin 0.00 Indirect Bilirubin 2.5 H Aspartate Amino Transf (AST/SGOT) 34 Alanine Aminotransferase (ALT/SGPT) 19 Alkaline Phosphatase 108 Troponin I 0.070 Total Protein 8.2 H Albumin 4.8 Globulin 3.40 H Albumin/Globulin Ratio 1.41 Lipase 95 HPI/ROS Admit Date/Time Admit Date/Time Hx of Present Illness Reason for admission: Abdominal pain, nausea/vomiting. This is a 58-year-old female with comorbidities including cardiomyopathy status post AICD placement, essential hypertension, pulmonary hypertension, chronic kidney disease, obesity, candidal esophagitis, and anxiety disorder. She came to the emergency room with chief complaint of abdominal pain, persistent nausea/vomiting, and diarrhea. The patient verbalized that the pain and the other symptoms started since she got some IV medications for evaluation of her left ventricular ejection fraction at [facility]. The patient follows up with the transplant team at [facility] for heart transplant. The patient denied any fevers or chills. The patient was unable to tolerate any oral intake. Patient also verbalized a few episodes of diarrhea. The patient also verbalized generalized weakness and feeling tired. She was complaining of dyspnea. She denied any chest pain. In the emergency room, the patient was noticed to have a BUN and creatinine of 34 and 1.65 respectively. The patient had minimal leukocytosis. She was afebrile. She was treated with IV morphine and IV Zofran in the emergency room. ROS Constitutional: nausea, poor po Eyes: no complaints ENT: no complaints Respiratory: shortness of breath Cardiovascular: no complaints Gastrointestinal: pain, diarrhea, nausea, vomiting Genitourinary: no complaints Musculoskeletal: no complaints Skin: no complaints Neurologic: no complaints Endocrine: no complaints Lymphatic: no complaints Psychological: no complaints Immunologic: no complaints PMH/Family/Social Past Medical History 1. Severe cardiomyopathy with ejection fraction of 20%.-Being worked up at [facility] for transplant. 2. Pulmonary hypertension. 3. Essential hypertension. 4. Chronic kidney disease. 5. Anxiety disorder due to underlying medical illness. 6. Obesity. 7. Candidal esophagitis. Medications Current Medications Ondansetron HCl (Zofran Inj) 4 mg BRIDGE ORDER PRN IV NAUSEA/VOMITING; Start 10/07/18 at 13:30; Stop 10/08/18 at 13:29 Acetaminophen (Tylenol Tab) 650 mg ER BRIDGE PRN PO .MILD PAIN 1-3 OR TEMP; Start 10/07/18 at 13:30; Stop 10/08/18 at 13:29 Coded Allergies: azithromycin (Verified Allergy, Unknown, STOMACH UPSET, VITTING, 10/07/18) Past Surgical History Past Surgical Hx: cholecystectomy Family History Significant Family History: no pertinent family hx Social History Lives at home with family. Alcohol Use: none Smoking Status: Former smoker Drug Use: none Exam/Review of Systems Vital Signs Vitals Vital Signs Date Temp Pulse Resp B/P (MAP) Pulse Ox O2 O2 Flow FiO2 Time Delivery Rate 10/07/18 98.1 84 18 123/76 95 Room Air 10:56 (92) Exam Exam General: Obese 58 year-old female sitting in bed, leaning forward because of abdominal pain. HEENT: Normocephalic, atraumatic. Eyes: Anicteric sclerae, conjunctivae clear. ENT: Nasal septum midline, oral mucosa moist. Neck supple, JVD noticed. Respiratory: Bilaterally diminished breath sounds. Use of accessory muscles of respiration. Frequent coughing spells. Cardiovascular: S1, S2 heard. Regular rate and rhythm. Abdomen: Soft and nondistended. Diffuse tenderness. Bowel sounds positive in all 4 quadrants. Genitourinary: Deferred. Extremities: No cyanosis, no clubbing, no edema. Peripheral pulses palpable. Neurologic: Cranial nerves II through XII grossly intact. The patient is awake, alert, and oriented. Skin: Normal skin turgor. No skin rashes. GERARDO JOHN NP Oct 07, 2018 13:51
[2018-10-07] MEDS ORDERED: LORAZEPAM 0.5 MG TAB PO PRN (14:00)
[2018-10-07] MEDS ORDERED: NACL 0.9% 3 ML SYG IV SCH (14:30)
[2018-10-07 15:39] VITALS: Ht 175.3 cm; Wt 102.6 kg
[2018-10-07] MEDS: ONDANSETRON 4 MG INJ IV PRN ×2 (15:54→22:59)
[2018-10-07] MEDS: morphine 2 MG INJ IV PRN ×2 (15:55→21:31)
[2018-10-07] MEDS: PANTOPRAZOLE (EC) 40 MG TAB PO SCH (17:29)
--- NOTE | 2018-10-07 18:15 | CONS ---
Assessment/Plan Cardiology NYHA: III Heart Failure Type: Chronic Heart Failure Type: Systolic Assessment/Plan Hospital Course (Demo Recall) Abdominal pain and nausea Chronic systolic congestive heart failure Severe nonischemic cardia myopathy Pulmonary hypertension Chronic kidney disease History of biventricular pacemaker/ICD Patient denies any current shortness of breath, chest pain or palpitations Having abdominal pain with epigastric discomfort Incidentally, patient had recent cardiac testing done at [facility] yesterday, I have reached out to [facility] physician and awaiting results Continue beta-blockers heart rate and blood pressure permits Renal function improves, restart Entresto Diuretics as per nephrology Consultation Date/Type/Reason Admit Date/Time Type of Consult Cardiology Reason for Consultation Cardiac evaluation Date/Time of Note DATE: 10/07/18 TIME: 18:11 Hx of Present Illness This is a 58-year-old female well-known to me from multiple previous admissions presents with abdominal pain, nausea over the past few days. Patient was receiv ed at our facility secondary to hypotension and hypovolemia. She improved after IV fluids. She was feeling weak over the past few days but developed this abdominal discomfort and nausea. Denies any shortness of breath. She does feel weak and tired. Denies any fevers or chills. Denies any chest pain. Denies any current dizziness or lightheadedness or palpitations. 12 point review of systems was performed with all pertinent positives and negatives mentioned above and all else is negative Past Medical History Labile blood pressure Medical History: congestive heart failure Home Meds Reported Medications Spironolactone* (Aldactone*) 25 Mg Tablet, 12.5 MG PO DAILY, #30 TAB 10/07/18 Aspirin* (Aspirin* EC) 81 Mg Tablet.dr, 81 MG PO DAILY, TAB 10/07/18 Carvedilol* (Carvedilol*) 3.125 Mg Tablet, 3.125 MG PO BID, #60 TAB 10/07/18 Bumetanide* (Bumetanide*) 1 Mg Tablet, 2 MG PO BID, TAB 10/07/18 Lorazepam* (Lorazepam*) 0.5 Mg Tablet, 0.5 MG PO BID PRN for ANXIETY, TAB 10/07/18 Discontinued Reported Medications Sacubitril/Valsartan (Entresto 49 mg-51 mg Tablet) 1 Each Tablet, 1 TAB PO BID, TAB 06/30/18 Lorazepam* (Lorazepam*) 0.5 Mg Tablet, 0.5 MG PO BID PRN for ANXIETY, TAB 01/07/18 Aspirin (Low Dose Aspirin) 81 Mg Tablet.dr, 81 MG PO DAILY, #30 TAB 01/07/18 Carvedilol* (Carvedilol*) 3.125 Mg Tablet, 3.125 MG PO BID, #60 TAB 01/07/18 Discontinued Scripts Pantoprazole* (Protonix*) 40 Mg Tablet.dr, 40 MG PO AC BREAKFAST, #30 TAB Prov:RODNEYSEANA V. APPLIANCE MECHANIC 07/15/18 Sennosides* (Senna Lax*) 8.6 Mg Tablet, 2 TAB PO BID PRN for CONSTIPATION, #60 TAB Prov:RODNEYJODY V. APPLIANCE MECHANIC 07/15/18 Polyethylene Glycol* (Miralax*) 17 Gm Powd.pack, 17 GM PO DAILY, #30 PKT Prov:RODNEYSEANA V. APPLIANCE MECHANIC 07/15/18 Docusate Sodium* (Colace*) 100 Mg Capsule, 200 MG PO DAILY, #60 CAP Prov:RODNEYJODY V. APPLIANCE MECHANIC 07/15/18 Bumetanide* (Bumetanide*) 1 Mg Tablet, 0.5 MG PO DAILY, #30 TAB Prov:RODNEYJODY V. APPLIANCE MECHANIC 07/15/18 Escitalopram Oxalate* (Escitalopram Oxalate*) 10 Mg Tablet, 5 MG PO DAILY, #30 TAB Prov:RODNEYSEANA V. APPLIANCE MECHANIC 07/15/18 Atorvastatin Calcium (Atorvastatin Calcium) 20 Mg Tablet, 20 MG PO HS, #30 TAB Prov:RODNEYJODY V. APPLIANCE MECHANIC 07/15/18 Spironolactone* (Aldactone*) 25 Mg Tablet, 25 MG PO DAILY, #30 TAB Prov:RODNEYSEANA V. APPLIANCE MECHANIC 07/15/18 Metoclopramide* (Reglan*) 5 Mg Tablet, 5 MG PO TIDM A, #30 TAB Prov:RODNEYSEANA V. APPLIANCE MECHANIC 07/15/18 Dicyclomine HCl (Dicyclomine HCl) 10 Mg Capsule, 20 MG PO Q8 for 5 Days, #15 CAP Prov:RODNEYJODY V. APPLIANCE MECHANIC 07/15/18 Fluconazole* (Diflucan*) 100 Mg Tablet, 100 MG PO DAILY for 5 Days, #5 TAB Prov:JODY RODNEY Paige GONZALEZ 07/15/18 [Work Note] No Conflict Check Please excuse Isreal Chairez attending work from 07/07/2018 to 07/18/2018 due to her medical condition. Thanks. Prov:RODNEYJESSICAJODYRASHARD Gibosn NP 07/15/18 Medications Current Medications Ondansetron HCl (Zofran Inj) 4 mg BRIDGE ORDER PRN IV NAUSEA/VOMITING; Start 10/07/18 at 13:30; Stop 10/08/18 at 13:29 Acetaminophen (Tylenol Tab) 650 mg ER BRIDGE PRN PO .MILD PAIN 1-3 OR TEMP; Start 10/07/18 at 13:30; Stop 10/08/18 at 13:29 Aspirin (Halfprin) 81 mg DAILY PO ; Start 10/08/18 at 09:00 Bumetanide (Bumex) 2 mg BID DIURETICS PO ; Start 10/07/18 at 18:00 Carvedilol (Coreg) 3.125 mg BID PO ; Start 10/07/18 at 21:00 Lorazepam (Ativan) 0.5 mg BID PRN PO ANXIETY; Start 10/07/18 at 14:00 Spironolactone (Aldactone) 12.5 mg DAILY PO ; Start 10/08/18 at 09:00 Pantoprazole (Protonix Tab) 40 mg BID@06,18 PO Last administered on 10/07/18at 17:29; Admin Dose 40 MG; Start 10/07/18 at 18:00 IV Flush (NS 3 ml) 3 ml PER PROTOCOL IV ; Start 10/07/18 at 14:30 Ondansetron HCl (Zofran Inj) 4 mg Q6H PRN IV NAUSEA/VOMITING Last administered on 10/07/18at 15:54; Admin Dose 4 MG; Start 10/07/18 at 14:30 Acetaminophen (Tylenol Tab) 650 mg Q6H PRN PO .PAIN 1-3 OR TEMP; Start 10/07/18 at 14:30 Acetaminophen/ Hydrocodone Bitart ([place] (5/325)) 1 tab Q6H PRN PO .MOD PAIN 4- 6; Start 10/07/18 at 14:30 Morphine Sulfate (morphine) 2 mg Q4H PRN IV .SEVERE PAIN 7-10 Last administered on 10/07/18at 15:55; Admin Dose 2 MG; Start 10/07/18 at 14:30 Heparin Sodium (Porcine) (Heparin (5000 Units/1ml)) 5,000 unit Q12 SC ; Start 10/07/18 at 21:00 Polyethylene Glycol (Miralax) 17 gm BID PO ; Start 10/07/18 at 21:00 Allergies: Coded Allergies: azithromycin (Verified Allergy, Unknown, STOMACH UPSET, VITTING, 10/07/18) Past Surgical History Past Surgical Hx: cholecystectomy, other (Biventricular pacemaker and ICD) Social History Alcohol Use: none Smoking Status: Former smoker Drug Use: none Exam/Review of Systems Vital Signs Vitals Vital Signs Date Temp Pulse Resp B/P (MAP) Pulse Ox O2 O2 Flow FiO2 Time Delivery Rate 10/07/18 74 18 122/60 98 Room Air 14:53 (80) 10/07/18 98.3 13:00 Exam Constitutional: alert, oriented (No apparent distress) Head: normocephalic Respiratory: other (Coarse breath sounds bilaterally, no wheezing) Cardiovascular: regular rate and rhythm (S1-S2 heard) Gastrointestinal: soft, bowel sounds, tender (Epigastric region) Extremities: other (No significant edema) Labs Result Diagram: 10/07/18 1043 10/07/18 1043 Results 24hrs Laboratory Tests Test 10/07/18 10:43 White Blood Count 10.9 #H Red Blood Count 4.71 Hemoglobin 13.5 Hematocrit 42.4 Mean Corpuscular Volume 90.0 Mean Corpuscular Hemoglobin 28.7 L Mean Corpuscular Hemoglobin Concent 31.8 L Red Cell Distribution Width 15.1 H Platelet Count 234 Mean Platelet Volume 11.3 H Immature Granulocytes % 0.600 H Neutrophils % 85.8 H Lymphocytes % 6.4 L Monocytes % 7.1 Eosinophils % 0.0 Basophils % 0.1 Nucleated Red Blood Cells % 0.0 Immature Granulocytes # 0.060 H Neutrophils # 9.3 H Lymphocytes # 0.7 L Monocytes # 0.8 Eosinophils # 0.0 Basophils # 0.0 Nucleated Red Blood Cells # 0.0 Sodium Level 139 Potassium Level 4.2 Chloride Level 98 Carbon Dioxide Level 25 Anion Gap 16 H Blood Urea Nitrogen 34 H Creatinine 1.65 H Est Glomerular Filtrat Rate mL/min 39 L Glucose Level 167 Calcium Level 10.3 H Total Bilirubin 2.5 H Direct Bilirubin 0.00 Indirect Bilirubin 2.5 H Aspartate Amino Transf (AST/SGOT) 34 Alanine Aminotransferase (ALT/SGPT) 19 Alkaline Phosphatase 108 Troponin I 0.070 Total Protein 8.2 H Albumin 4.8 Globulin 3.40 H Albumin/Globulin Ratio 1.41 Lipase 95 Imaging Imaging ECG paced at 80 bpm Medications Medications Current Medications Ondansetron HCl (Zofran Inj) 4 mg BRIDGE ORDER PRN IV NAUSEA/VOMITING; Start 10/07/18 at 13:30; Stop 10/08/18 at 13:29 Acetaminophen (Tylenol Tab) 650 mg ER BRIDGE PRN PO .MILD PAIN 1-3 OR TEMP; Start 10/07/18 at 13:30; Stop 10/08/18 at 13:29 Aspirin (Halfprin) 81 mg DAILY PO ; Start 10/08/18 at 09:00 Bumetanide (Bumex) 2 mg BID DIURETICS PO ; Start 10/07/18 at 18:00 Carvedilol (Coreg) 3.125 mg BID PO ; Start 10/07/18 at 21:00 Lorazepam (Ativan) 0.5 mg BID PRN PO ANXIETY; Start 10/07/18 at 14:00 Spironolactone (Aldactone) 12.5 mg DAILY PO ; Start 10/08/18 at 09:00 Pantoprazole (Protonix Tab) 40 mg BID@06,18 PO Last administered on 10/07/18at 17:29; Admin Dose 40 MG; Start 10/07/18 at 18:00 IV Flush (NS 3 ml) 3 ml PER PROTOCOL IV ; Start 10/07/18 at 14:30 Ondansetron HCl (Zofran Inj) 4 mg Q6H PRN IV NAUSEA/VOMITING Last administered on 10/07/18at 15:54; Admin Dose 4 MG; Start 10/07/18 at 14:30 Acetaminophen (Tylenol Tab) 650 mg Q6H PRN PO .PAIN 1-3 OR TEMP; Start 10/07/18 at 14:30 Acetaminophen/ Hydrocodone Bitart ([place] (5/325)) 1 tab Q6H PRN PO .MOD PAIN 4- 6; Start 10/07/18 at 14:30 Morphine Sulfate (morphine) 2 mg Q4H PRN IV .SEVERE PAIN 7-10 Last administered on 10/07/18at 15:55; Admin Dose 2 MG; Start 10/07/18 at 14:30 Heparin Sodium (Porcine) (Heparin (5000 Units/1ml)) 5,000 unit Q12 SC ; Start 10/07/18 at 21:00 Polyethylene Glycol (Miralax) 17 gm BID PO ; Start 10/07/18 at 21:00 Gwyn Paris DO Oct 07, 2018 18:15
[2018-10-07] MEDS: BUMETANIDE 1 MG TAB PO SCH (18:35)
[2018-10-07] MEDS: HYDROCODONE/APAP (5/325) TAB PO PRN (19:24)
[2018-10-07 20:02] VITALS: BP 112/67; PULSE 89; RESP 18
[2018-10-07] MEDS: POLYETHYLENE GLYCOL 17 GM PACKET PO SCH (20:38)
[2018-10-07] MEDS: HEPARIN 5,000 UNIT/1 ML VIAL SC SCH (20:40)
[2018-10-07 21:30] VITALS: BP 117/73; PULSE 87; RESP 22
[2018-10-08 00:35] VITALS: BP 120/78; PULSE 78; RESP 18
--- NOTE | 2018-10-08 00:43 | CONS ---
DATE OF ADMISSION: 10/07/2018 DATE OF CONSULTATION: 10/07/2018 TYPE OF CONSULTATION: Nephrology. REASON FOR CONSULTATION: Chronic kidney disease, CKD. REQUESTING PHYSICIAN: Dr. Torres ____ HISTORY OF PRESENT ILLNESS: This is a 58-year-old female well known to me with a past medical histor y of cardiomyopathy, ejection fraction 11%, history of biventricular pacemaker placement, history of AICD placement, history of ____ aortic valve disease, history of pulmonary hypertension, history of c hronic kidney disease stage III secondary to cardiorenal syndrome type 2, baseline creatinine around 1.3 to 1.5 mg/dL, who presents with multiple admissions to [facility], and now pres ent with nausea, vomiting, diarrhea. The patient states his symptoms began over the last 24 hours a fter she had a recent cardiac evaluation at [facility]. The patient upon arrival had a CT scan of abdomen a nd pelvis which showed findings of fatty liver. No evidence of acute intra-abdominal pelvic process. The patient was given antiemetic therapy in the emergency room and transferred to med/surg for eval uation. In terms of patient's renal history, the patient's baseline creatinine is around 0.3 to 0.5 mg/dL. T he patient is on diuretic therapy. She denies any hemoptysis, hematemesis, hematochezia. PAST MEDICAL HISTORY: As stated above, history of CKD, history of coronary artery disease, history o f arrhythmia, history of CHF, ejection fraction 11%, history of dyslipidemia, history of anxiety diso rder, valvular heart disease, pulmonary hypertension. PAST SURGICAL HISTORY: Status post AICD placement, status post pacemaker placement, status post chol ecystectomy. FAMILY HISTORY: No family history of kidney disease. SOCIAL HISTORY: Does not drink, smoke, or do drugs. MEDICATIONS: Reviewed. REVIEW OF SYSTEMS: A 14-point review of systems was conducted. Pertinent positives stated in HPI, o therwise negative. PHYSICAL EXAMINATION: VITAL SIGNS: Blood pressure is 121/76, respirations 12, pulse 78, temperature 98.6. HEENT: Head is normocephalic. NECK: Supple. HEART: Regular rate. LUNGS: Show diminished breath sounds at the base. ABDOMEN: Soft. Positive tenderness to palpation in the epigastric region. EXTREMITIES: Negative for clubbing, cyanosis, no edema. DERMATOLOGIC: No rashes. MUSCULOSKELETAL: No joint effusion. NEUROLOGIC: No focal deficits. LABORATORY DATA: Reviewed. IMAGING STUDIES: Reviewed. ASSESSMENT AND PLAN: 1. Chronic kidney disease, stage IIIB with etiology secondary cardiorenal syndrome type 2. The sam ent's renal function at this point, appears to be at baseline. Will continue to monitor closely. 2. Anemia. Monitor hemoglobin and hematocrit levels. 3. Mineral bone disorder. Monitor calcium and phosphorus levels. 4. Abdominal pain, midepigastric pain. Etiology may be secondary to gastritis. Continue proton pum p inhibitor. CT scan was reviewed. 5. Chronic systolic heart failure. The patient currently appears euvolemic on exam. We will contin ue current management. Continue diuretic regimen. 6. Nonischemic cardiomyopathy. The patient is being evaluated for transplant in outpatient hospital , [facility]. The patient is being followed by Dr. Paris inpatient setting. We will monitor closely. We will wait for possible recent cardiac testing. The patient was previou sly on Entresto. Okay to continue from renal standpoint. 7. Pulmonary hypertension. Continue current treatment plan. 8. History of arrhythmia, status post pacemaker. Thank you, Brian, for this interesting consult. It will be a pleasure to follow patient with you t jaredout the hospital stay. Dictated By: AZEEM BERNARD DO NR/NTS Conf#: [id number] DID#: [id number] CC: ELA CORRAL MD;*EndCC*
[2018-10-08 04:16] VITALS: BP 119/84; PULSE 8; RESP 20
[2018-10-08] MEDS: ONDANSETRON 4 MG INJ IV PRN (05:57)
[2018-10-08] MEDS: BUMETANIDE 1 MG TAB PO SCH (05:57)
[2018-10-08] MEDS: PANTOPRAZOLE (EC) 40 MG TAB PO SCH ×2 (05:58→17:27)
[2018-10-08] MEDS: morphine 2 MG INJ IV PRN ×2 (06:13→18:26)
[2018-10-08 07:17] VITALS: BP 117/79; PULSE 90; RESP 22
--- NOTE | 2018-10-08 07:44 | PN ---
DATE: 10/08/2018 SUBJECTIVE: The patient was transferred from med/surg to telemetry. Overnight, the patient was havi ng significant mid epigastric pain. Receiving morphine. The patient remains anxious. No other even ts noted. OBJECTIVE: VITAL SIGNS: Blood pressure is 119/84, respiratory rate 20, pulse is 80, temperature 98.6. HEENT: Head is normocephalic. NECK: Supple. HEART: Regular rate. LUNGS: Show diminished breath sounds at the base. ABDOMEN: Positive tenderness to palpation in mid epigastric region, positive guarding, no rebound. EXTREMITIES: Negative for clubbing, cyanosis, no edema. DERMATOLOGIC: No rashes. MUSCULOSKELETAL: No joint effusion. NEUROLOGIC: No change in exam. MEDICATIONS: Reviewed. LABORATORY DATA: Has been reviewed. IMAGING STUDIES: Have been reviewed. ASSESSMENT AND PLAN: 1. Nonoliguric acute kidney injury on top of chronic kidney disease, stage IIIb. Etiology of acute kidney injury is secondary to hemodynamics, cardiorenal syndrome, diuretics. The patient's renal fun ction has declined in the last 24 hours. We will continue to monitor closely. Continue current diur etic regimen. If renal function should further decline we will consider holding diuretic therapy. 2. Anemia. Continue to monitor hemoglobin and hematocrit levels. 3. Mineral bone disorder. Continue to monitor calcium and phosphorus levels. 4. Mid epigastric abdominal pain. Etiology is felt to be secondary to gastritis, possible peptic ul cer disease. Continue proton pump inhibitor. Consider switching to IV. Consider GI evaluation. 5. Chronic systolic heart failure. The patient currently appears euvolemic on exam. Continue curre nt diuretic regimen. Follow up with cardiology. 6. Nonischemic cardiomyopathy. The patient is being evaluated for transfer to outside facility [facility]. Consider transfer. Follow up with cardiology for medical management. 7. Pulmonary hypertension. Continue treatment. 8. Arrhythmia, status post pacemaker. Dictated By: AZEEM BERNARD DO NR/NTS Conf#: [id number] DID#: [id number]
[2018-10-08] MEDS: HEPARIN 5,000 UNIT/1 ML VIAL SC SCH (08:46)
[2018-10-08] MEDS: POLYETHYLENE GLYCOL 17 GM PACKET PO SCH (08:48)
[2018-10-08] MEDS: HYDROCODONE/APAP (5/325) TAB PO PRN (08:48)
--- NOTE | 2018-10-08 08:48 | CONS ---
Assessment/Plan Assessment/Plan Hospital Course (Demo Recall) 58 yo female with mx comorbidities presents with abdominal pain, N/V, some episodes of diarrhea with formed stool 1. Acute abdominal pain -h/o sonal esophagitis and gastritis -improved today per pt 2. Hyperbilirubinemia due to Gilbert's disease -total bili 2.5, indirect bili 2.5, ast mildly elevated today 2. Nausea and vomiting -x 1, no evidence of GI bleeding -no nausea today 3. Fecal impaction 4. Poor oral intake secondary to lack of money per pt 5. Fatty liver 6. Chronic kidney disease. 7. Essential hypertension. 8. Pulmonary hypertension. - on supplemental O2 9. Cardiomyopathy, Severe nonischemic -Status post AICD placement. 10. Anxiety disorder. 11. Rt shoulder muscle spasms 12. Acute decompensated systolic congestive heart failure CT of abd 10/07: 1. Fatty liver. Status post cholecystectomy. 2. No evidence of acute intra-abdominal/pelvic inflammatory process. No evidence of bowel obstruction. Stool filled loops large bowel suggestive of constipation. The appendix is within normal limits. 3. Atherosclerotic disease of the aorta. 4. No evidence of renal/ureteric calculi. No evidence of obstructive uropathy. 5. Mild atherosclerotic disease of the aorta. 6. No evidence of free fluid or free air. No gross focal fluid collections. Plan: EGD tentatively scheduled for tomorrow. We will monitor her and prepare for an EGd. ASA and heparin on hold for procedure. NPO p MN. Am Labs. Amitiza 24 mcg BID PO Miralax 17 gm PO QD Dulcolax 20 mg PO x 1 PPI Psych consult: consider depression, consider placing pt on duloxetine Consider muscle relaxant for muscle spasms in rt shoulder. Continue with clear liquid diet for time being. Plan to be transferred to [facility] for evaluation for heart transplant. Pt examined and plan of care d/w Dr. Holt Consultation Date/Type/Reason Admit Date/Time Oct 07, 2018 at 13:07 Initial Consult Date Date/Time of Note DATE: 10/08/18 TIME: 08:42 24 HR Interval Summary Free Text/Dictation 58 yo female with cardiomyopathy with AICD placement, htn, pulmonary htn, chronic kidney disease, Gilbert's disease and obesity presents with nausea and vomiting, abd pain. Pt states that two days ago she began having constant dull 10/10 epigastric pain. Currently she does not have any abdominal pain. Yesterday morning she did have a liquid bm which later was formed with some liquid stool. She states she does not eat much because she doesn't have alot of money to buy food. She had one episode of nausea yesterday with clear and clear green vomit. Currently she c/o rt shoulder muscular pain since admission. Overall she states she has sciatic pain at home. Feels she is always in some kind of pain. She denies fevers and chills. C/O SOB while she speaks. She did not have any supplemental O2 running right now. She does not use supplemental O2 at home because she states her doctors don't feel her lungs are that bad. Her last admission in June 2018 pt was diagnosed with sonal esophagitis and gastritis. She had also at the time continued to c/o abdominal pain which seemed to be relieved with Bentyl. WBC wnl. AFebrile. Denies chills. HH wnl. INR wnl. Total bili and indirect bili are 2.5. No evidence of bile duct dilatation on CT or US. S/P cholecystectomy. CT abd showed fatty liver, no evidence of acute intra- abdominal/pelvic inflammatory process, no evidence of bowel obstruction and stool filled loops large bowel suggestive of constipation. Exam/Review of Systems Exam Vitals Vital Signs Date Temp Pulse Resp B/P (MAP) Pulse Ox O2 O2 Flow FiO2 Time Delivery Rate 10/08/18 97.8 90 22 117/79 96 Room Air 2.0 07:17 (92) Nasal Cannula Intake and Output 10/07/18 10/07/18 10/08/18 1515:00 23:00 07:00 IntakeIntake Total 200 ml BalanceBalance 200 ml Constitutional: alert, oriented Psych: anxiety, depression Head: normocephalic Eyes: nl sclera, PERRL ENMT: nl lips & teeth, mucosa pink and moist Respiratory: normal air movement Cardiovascular: regular rate and rhythm Gastrointestinal: soft, non-tender, bowel sounds Musculoskeletal: other (rt shoulder muscle knot) Extremities: normal pulses Results Result Diagram: 10/08/18 0545 10/08/18 0545 Results 24hrs Laboratory Tests Test 10/07/18 10:43 10/08/18 05:45 White Blood Count 10.9 #H 10.8 Red Blood Count 4.71 4.74 Hemoglobin 13.5 13.4 Hematocrit 42.4 42.8 Mean Corpuscular Volume 90.0 90.3 Mean Corpuscular Hemoglobin 28.7 L 28.3 L Mean Corpuscular Hemoglobin Concent 31.8 L 31.3 L Red Cell Distribution Width 15.1 H 15.5 H Platelet Count 234 243 Mean Platelet Volume 11.3 H 11.6 H Immature Granulocytes % 0.600 H 0.500 H Neutrophils % 85.8 H 82.1 H Lymphocytes % 6.4 L 7.9 L Monocytes % 7.1 9.4 Eosinophils % 0.0 0.0 Basophils % 0.1 0.1 Nucleated Red Blood Cells % 0.0 0.0 Immature Granulocytes # 0.060 H 0.050 H Neutrophils # 9.3 H 8.9 H Lymphocytes # 0.7 L 0.9 Monocytes # 0.8 1.0 H Eosinophils # 0.0 0.0 Basophils # 0.0 0.0 Nucleated Red Blood Cells # 0.0 0.0 Sodium Level 139 137 Potassium Level 4.2 5.1 Chloride Level 98 97 Carbon Dioxide Level 25 25 Anion Gap 16 H 15 H Blood Urea Nitrogen 34 H 45 #H Creatinine 1.65 H 2.09 H Est Glomerular Filtrat Rate mL/min 39 L 30 L Glucose Level 167 148 Calcium Level 10.3 H 10.1 Total Bilirubin 2.5 H 2.5 H Direct Bilirubin 0.00 0.00 Indirect Bilirubin 2.5 H 2.5 H Aspartate Amino Transf (AST/SGOT) 34 48 H Alanine Aminotransferase (ALT/SGPT) 19 23 Alkaline Phosphatase 108 93 Troponin I 0.070 Total Protein 8.2 H 8.2 H Albumin 4.8 4.7 Globulin 3.40 H 3.50 H Albumin/Globulin Ratio 1.41 1.34 Lipase 95 Prothrombin Time 14.6 Prothrombin Time Ratio 1.1 INR International Normalized Ratio 1.13 Activated Partial Thromboplast Time 29.2 Hemoglobin A1c 5.1 Medications Medication Current Medications Acetaminophen (Tylenol Tab) 650 mg ER BRIDGE PRN PO .MILD PAIN 1-3 OR TEMP; Start 10/07/18 at 13:30; Stop 10/08/18 at 13:29 Aspirin (Halfprin) 81 mg DAILY PO ; Start 10/08/18 at 09:00 Bumetanide (Bumex) 2 mg BID DIURETICS PO Last administered on 10/08/18 05:57; Admin Dose 2 MG; Start 10/07/18 at 18:00 Carvedilol (Coreg) 3.125 mg BID PO Last administered on 10/07/18 20:39; Admin Dose 3.125 MG; Start 10/07/18 at 21:00 Lorazepam (Ativan) 0.5 mg BID PRN PO ANXIETY Last administered on 10/08/18 02:35; Admin Dose 0.5 MG; Start 10/07/18 at 14:00 Spironolactone (Aldactone) 12.5 mg DAILY PO ; Start 10/08/18 at 09:00 Pantoprazole (Protonix Tab) 40 mg BID@18 PO Last administered on 10/08/18 05:58; Admin Dose 40 MG; Start 10/07/18 at 18:00 IV Flush (NS 3 ml) 3 ml PER PROTOCOL IV ; Start 10/07/18 at 14:30 Ondansetron HCl (Zofran Inj) 4 mg Q6H PRN IV NAUSEA/VOMITING Last administered on 10/08/18 05:57; Admin Dose 4 MG; Start 10/07/18 at 14:30 Acetaminophen (Tylenol Tab) 650 mg Q6H PRN PO .PAIN 1-3 OR TEMP; Start 10/07/18 at 14:30 Acetaminophen/ Hydrocodone Bitart ([place] (5/325)) 1 tab Q6H PRN PO .MOD PAIN 4- 6 Last administered on 10/07/18 19:24; Admin Dose 1 TAB; Start 10/07/18 at 14:30 Morphine Sulfate (morphine) 2 mg Q4H PRN IV .SEVERE PAIN 7-10 Last administered on 10/08/18 06:13; Admin Dose 2 MG; Start 10/07/18 at 14:30 Heparin Sodium (Porcine) (Heparin (5000 Units/1ml)) 5,000 unit Q12 SC Last administered on 10/07/18 20:40; Admin Dose 5,000 UNIT; Start 10/07/18 at 21:00 Polyethylene Glycol (Miralax) 17 gm BID PO Last administered on 10/07/18 20:38; Admin Dose 17 GM; Start 10/07/18 at 21:00 SRAVANTHI MAXWELL Oct 08, 2018 08:48
[2018-10-08] MEDS ORDERED: ASPIRIN (EC) 81 MG TAB PO SCH (09:00)
[2018-10-08] MEDS ORDERED: SPIRONOLACTONE 25 MG TAB PO SCH (09:00)
[2018-10-08] MEDS ORDERED: BISACODYL (EC) 5 MG TAB PO ONE (09:30)
[2018-10-08 11:16] VITALS: BP 121/76; PULSE 92; RESP 22
--- NOTE | 2018-10-08 11:16 | PN ---
Date/Time of Note Date/Time of Note DATE: 10/08/18 TIME: 11:11 Assessment/Plan VTE Prophylaxis Risk score (from Ns)>0 risk: 3 SCD applied (from Ns): No SCD contraindicated: other Pharmacological prophylaxis: heparin Lines/Catheters IV C[facility]ter Type [facility]from [facility] Urinary Cath still in place: No Assessment/Plan Hospital Course SUBJECTIVE: Abdominal pain better. No more diarrhea reported. OBJECTIVE: Physical Exam General: Obese 58 year-old female sitting in bed, leaning forward because of abdominal pain. HEENT: Normocephalic, atraumatic. Eyes: Anicteric sclerae, conjunctivae clear. ENT: Nasal septum midline, oral mucosa moist. Neck supple, JVD noticed. Respiratory: Bilaterally diminished breath sounds. Use of accessory muscles of respiration. Frequent coughing spells. Cardiovascular: S1, S2 heard. Regular rate and rhythm. Abdomen: Soft and nondistended. Diffuse tenderness. Bowel sounds positive in all 4 quadrants. Genitourinary: Deferred. Extremities: No cyanosis, no clubbing, no edema. Peripheral pulses palpable. Neurologic: Cranial nerves II through XII grossly intact. The patient is awake, alert, and oriented. Skin: Normal skin turgor. No skin rashes. Labs & Vitals per chart ASSESSMENT & PLAN 58-year-old female with comorbidities including cardiomyopathy status post AICD placement, essential hypertension, pulmonary hypertension, chronic kidney disease, obesity, candidal esophagitis, and anxiety disorder who came to the emergency room with chief complaint of abdominal pain, nausea/vomiting, diarrhea, and poor oral intake, who was be admitted to inpatient setting for further treatment and evaluation. 1. Acute abdominal pain. Etiology unclear. The patient has prior history of candidal esophagitis and gastritis. Continue the patient on PPI. CT scan of the abdomen and pelvis negative for any acute findings. Gastroenterology following. Tentative plan for esophagogastroduodenoscopy. 2. Chronic kidney disease. Use nephrotoxic drugs with caution. Nephrology following. 3. Essential hypertension. Continue antihypertensives. 4. Pulmonary hypertension. Continue supplemental oxygen. 5. Cardiomyopathy. Status post AICD placement. Continue beta-blockers and aldosterone antagonists. Cardiology following. Plan to transfer the patient to transplant center at [facility]. 6. Anxiety disorder. Continue PRN anxiolytics. 7. Obesity. BMI more than 33 kg/m. 8. 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 9. Fluids, electrolytes, and nutrition. Clear liquids. 10. DVT prophylaxis. Subcutaneous heparin. 11. Plan. Continue clear liquids. Continue PPI and antiemetics. Await esophagogastroduodenoscopy. Meanwhile, will work on transferring this patient to [facility]. The patient was seen in collaboration with Dr. Gaytan. Result Diagram: 10/08/18 0545 10/08/18 0545 Results 24hrs Laboratory Tests Test 10/08/18 05:45 10/08/18 05:46 White Blood Count 10.8 Red Blood Count 4.74 Hemoglobin 13.4 Hematocrit 42.8 Mean Corpuscular Volume 90.3 Mean Corpuscular Hemoglobin 28.3 L Mean Corpuscular Hemoglobin Concent 31.3 L Red Cell Distribution Width 15.5 H Platelet Count 243 Mean Platelet Volume 11.6 H Immature Granulocytes % 0.500 H Neutrophils % 82.1 H Lymphocytes % 7.9 L Monocytes % 9.4 Eosinophils % 0.0 Basophils % 0.1 Nucleated Red Blood Cells % 0.0 Immature Granulocytes # 0.050 H Neutrophils # 8.9 H Lymphocytes # 0.9 Monocytes # 1.0 H Eosinophils # 0.0 Basophils # 0.0 Nucleated Red Blood Cells # 0.0 Prothrombin Time 14.6 Prothrombin Time Ratio 1.1 INR International Normalized Ratio 1.13 Activated Partial Thromboplast Time 29.2 Sodium Level 137 Potassium Level 5.1 Chloride Level 97 Carbon Dioxide Level 25 Anion Gap 15 H Blood Urea Nitrogen 45 #H Creatinine 2.09 H Est Glomerular Filtrat Rate mL/min 30 L Glucose Level 148 Hemoglobin A1c 5.1 Calcium Level 10.1 Total Bilirubin 2.5 H Direct Bilirubin 0.00 Indirect Bilirubin 2.5 H Aspartate Amino Transf (AST/SGOT) 48 H Alanine Aminotransferase (ALT/SGPT) 23 Alkaline Phosphatase 93 Total Protein 8.2 H Albumin 4.7 Globulin 3.50 H Albumin/Globulin Ratio 1.34 Phosphorus Level 5.2 H Magnesium Level 2.1 Triglycerides Level 119 Cholesterol Level 184 LDL Cholesterol, Calculated 113 HDL Cholesterol 47 Cholesterol/HDL Ratio 3.9 Exam/Review of Systems Exam Vitals Vital Signs Date Temp Pulse Resp B/P (MAP) Pulse Ox O2 O2 Flow FiO2 Time Delivery Rate 10/08/18 97.8 90 22 117/79 96 Room Air 2.0 07:17 (92) Nasal Cannula Intake and Output 10/07/18 10/07/18 10/08/18 1414:59 22:59 06:59 IntakeIntake Total 200 ml BalanceBalance 200 ml Results Results 24hrs Laboratory Tests Test 10/08/18 05:45 10/08/18 05:46 White Blood Count 10.8 Red Blood Count 4.74 Hemoglobin 13.4 Hematocrit 42.8 Mean Corpuscular Volume 90.3 Mean Corpuscular Hemoglobin 28.3 L Mean Corpuscular Hemoglobin Concent 31.3 L Red Cell Distribution Width 15.5 H Platelet Count 243 Mean Platelet Volume 11.6 H Immature Granulocytes % 0.500 H Neutrophils % 82.1 H Lymphocytes % 7.9 L Monocytes % 9.4 Eosinophils % 0.0 Basophils % 0.1 Nucleated Red Blood Cells % 0.0 Immature Granulocytes # 0.050 H Neutrophils # 8.9 H Lymphocytes # 0.9 Monocytes # 1.0 H Eosinophils # 0.0 Basophils # 0.0 Nucleated Red Blood Cells # 0.0 Prothrombin Time 14.6 Prothrombin Time Ratio 1.1 INR International Normalized Ratio 1.13 Activated Partial Thromboplast Time 29.2 Sodium Level 137 Potassium Level 5.1 Chloride Level 97 Carbon Dioxide Level 25 Anion Gap 15 H Blood Urea Nitrogen 45 #H Creatinine 2.09 H Est Glomerular Filtrat Rate mL/min 30 L Glucose Level 148 Hemoglobin A1c 5.1 Calcium Level 10.1 Total Bilirubin 2.5 H Direct Bilirubin 0.00 Indirect Bilirubin 2.5 H Aspartate Amino Transf (AST/SGOT) 48 H Alanine Aminotransferase (ALT/SGPT) 23 Alkaline Phosphatase 93 Total Protein 8.2 H Albumin 4.7 Globulin 3.50 H Albumin/Globulin Ratio 1.34 Phosphorus Level 5.2 H Magnesium Level 2.1 Triglycerides Level 119 Cholesterol Level 184 LDL Cholesterol, Calculated 113 HDL Cholesterol 47 Cholesterol/HDL Ratio 3.9 Medications Medication Current Medications Acetaminophen (Tylenol Tab) 650 mg ER BRIDGE PRN PO .MILD PAIN 1-3 OR TEMP; Start 10/07/18 at 13:30; Stop 10/08/18 at 13:29 Aspirin (Halfprin) 81 mg DAILY PO Last administered on 10/08/18at 08:41; Admin Dose 81 MG; Start 10/08/18 at 09:00 Bumetanide (Bumex) 2 mg BID DIURETICS PO Last administered on 10/08/18 05:57; Admin Dose 2 MG; Start 10/07/18 at 18:00 Carvedilol (Coreg) 3.125 mg BID PO Last administered on 10/08/18 08:41; Admin Dose 3.125 MG; Start 10/07/18 at 21:00 Lorazepam (Ativan) 0.5 mg BID PRN PO ANXIETY Last administered on 10/08/18 02:35; Admin Dose 0.5 MG; Start 10/07/18 at 14:00 Spironolactone (Aldactone) 12.5 mg DAILY PO Last administered on 10/08/18 08:42; Admin Dose 12.5 MG; Start 10/08/18 at 09:00 Pantoprazole (Protonix Tab) 40 mg BID@18 PO Last administered on 10/08/18 05:58; Admin Dose 40 MG; Start 10/07/18 at 18:00 IV Flush (NS 3 ml) 3 ml PER PROTOCOL IV ; Start 10/07/18 at 14:30 Ondansetron HCl (Zofran Inj) 4 mg Q6H PRN IV NAUSEA/VOMITING Last administered on 10/08/18 05:57; Admin Dose 4 MG; Start 10/07/18 at 14:30 Acetaminophen (Tylenol Tab) 650 mg Q6H PRN PO .PAIN 1-3 OR TEMP; Start 10/07/18 at 14:30 Acetaminophen/ Hydrocodone Bitart ([place] (5/325)) 1 tab Q6H PRN PO .MOD PAIN 4- 6 Last administered on 10/08/18 08:48; Admin Dose 1 TAB; Start 10/07/18 at 14:30 Morphine Sulfate (morphine) 2 mg Q4H PRN IV .SEVERE PAIN 7-10 Last administered on 10/08/18 06:13; Admin Dose 2 MG; Start 10/07/18 at 14:30 Heparin Sodium (Porcine) (Heparin (5000 Units/1ml)) 5,000 unit Q12 SC Last administered on 10/08/18 08:46; Admin Dose 5,000 UNIT; Start 10/07/18 at 21:00 Polyethylene Glycol (Miralax) 17 gm BID PO Last administered on 10/08/18 08:48; Admin Dose 17 GM; Start 10/07/18 at 21:00 Lubiprostone (Amitiza) 24 mcg BID PO ; Start 10/08/18 at 21:00 Dicyclomine HCl (Bentyl) 20 mg Q8 PO ; Start 10/08/18 at 14:00 GERARDO JOHN NP Oct 08, 2018 11:16
--- NOTE | 2018-10-08 11:35 | DS ---
Date/Time of Note Date/Time of Note DATE: 10/08/18 TIME: 11:31 Discharge Summary Admission/Discharge Info Admit Date/Time Oct 07, 2018 at 13:07 Discharge Date/Time Discharge Diagnosis 1. Acute abdominal pain. 2. Chronic kidney disease. 3. Essential hypertension. 4. Pulmonary hypertension. 5. Non-ischemic cardiomyopathy. Status post AICD placement. 6. Anxiety disorder. 7. Obesity. BMI > 33 kg/m. 8. 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 Patient Condition: Stable Consults 1. Gwyn Paris DO, Cardiology. 2. Edu Joseph DO, Nephrology. 3. Juan Holt MD, Gastroenterology. Procedures CT Abdomen & Pelvis IMPRESSION: 1. Fatty liver. Status post cholecystectomy. 2. No evidence of acute intra-abdominal/pelvic inflammatory process. No evidence of bowel obstruction. Stool filled loops large bowel suggestive of constipation. The appendix is within normal limits. 3. Atherosclerotic disease of the aorta. 4. No evidence of renal/ureteric calculi. No evidence of obstructive uropathy. 5. Mild atherosclerotic disease of the aorta. 6. No evidence of free fluid or free air. No gross focal fluid collections. Hx of Present Illness Reason for admission: Abdominal pain, nausea/vomiting. This is a 58-year-old female with comorbidities including cardiomyopathy status post AICD placement, essential hypertension, pulmonary hypertension, chronic kidney disease, obesity, candidal esophagitis, chronic hyperbilirubinemia from Gilbert's disease, and anxiety disorder. She came to the emergency room with chief complaint of abdominal pain, persistent nausea/vomiting, and diarrhea. The patient verbalized that the pain and the other symptoms started since she got some IV medications for evaluation of her left ventricular ejection fraction at [facility]. The patient follows up with the transplant team at [facility] for heart transplant. The patient denied any fevers or chills. The patient was unable to tolerate any oral intake. Patient also verbalized a few episodes of diarrhea. The patient also verbalized generalized weakness and feeling tired. She was complaining of dyspnea. She denied any chest pain. In the emergency room, the patient was noticed to have a BUN and creatinine of 34 and 1.65 respectively. The patient had minimal leukocytosis. She was afebrile. She was treated with IV morphine and IV Zofran in the emergency room. Hospital Course The patient was admitted to inpatient setting. Etiology of the patient's acute abdominal pain with poor oral intake and nausea/vomiting is unclear. The patient underwent a CT scan of the abdomen and pelvis that was negative for any acute findings. The patient has prior history of sonal esophagitis and gastritis. The patient was continued on proton pump inhibitors. A gastroenterology consult was obtained. Gastroenterology is tentatively planning for esophagogastroduodenoscopy on 10/09/2018. The patient has underlying nonischemic cardiomyopathy with the latest ejection fraction as per the 2D echocardiogram results available at [facility] of 20%. However, the patient reported that her EF has further been decreased as per the evaluation at [facility]. The patient has been visiting the emergency room at [facility] frequently in the past few months. Therefore, the ticket marker contacted the heart transplant team at [facility] and a clinical decision was made to transfer this patient to [facility] for further evaluation management. The patient's chronic problems include chronic kidney disease. The patient was being followed by nephrology during the hospital course. Nephrotoxic drugs were used with caution. She was maintained on antihypertensives for her underlying hypertension. She has a history of pulmonary hypertension. She was maintained on supplemental oxygen. As mentioned earlier, she has cardiomyopathy and she is status post AICD placement. She was maintained on beta-blockers and aldosterone antagonist. The patient's Entresto was held last time when she was hospitalized because of worsening renal function and because of hypotension. She has some anxiety disorder. She was maintained on PRN anxiolytics. She is also obese with a BMI of more than 33 kg/m. The patient has underlying chronic hyperbilirubinemia secondary to Gilbert's syndrome. The patient needs further evaluation of her frequent hospitalizations, probably this could be related to her worsening cardiac function causing ischemia to the gastrointestinal tract. Therefore, the patient will be transferred to [facility] for further evaluation and management. At this time, I would like to thank all the consultants for seeing the patient and providing clinical recommendations. The patient was seen in collaboration with Dr. Gaytan. Home Meds Reported Medications Spironolactone* (Aldactone*) 25 Mg Tablet, 12.5 MG PO DAILY, #30 TAB 10/07/18 Aspirin* (Aspirin* EC) 81 Mg Tablet.dr, 81 MG PO DAILY, TAB 10/07/18 Carvedilol* (Carvedilol*) 3.125 Mg Tablet, 3.125 MG PO BID, #60 TAB 10/07/18 Bumetanide* (Bumetanide*) 1 Mg Tablet, 2 MG PO BID, TAB 10/07/18 Lorazepam* (Lorazepam*) 0.5 Mg Tablet, 0.5 MG PO BID PRN for ANXIETY, TAB 10/07/18 Discontinued Reported Medications Sacubitril/Valsartan (Entresto 49 mg-51 mg Tablet) 1 Each Tablet, 1 TAB PO BID, TAB 06/30/18 Lorazepam* (Lorazepam*) 0.5 Mg Tablet, 0.5 MG PO BID PRN for ANXIETY, TAB 01/07/18 Aspirin (Low Dose Aspirin) 81 Mg Tablet.dr, 81 MG PO DAILY, #30 TAB 01/07/18 Carvedilol* (Carvedilol*) 3.125 Mg Tablet, 3.125 MG PO BID, #60 TAB 01/07/18 Discontinued Scripts Pantoprazole* (Protonix*) 40 Mg Tablet.dr, 40 MG PO AC BREAKFAST, #30 TAB Prov:RODNEY,JODY V. DIRECTOR EMERGENCY SERVICES 07/15/18 Sennosides* (Senna Lax*) 8.6 Mg Tablet, 2 TAB PO BID PRN for CONSTIPATION, #60 TAB Prov:RODNEY,JODY V. DIRECTOR EMERGENCY SERVICES 07/15/18 Polyethylene Glycol* (Miralax*) 17 Gm Powd.pack, 17 GM PO DAILY, #30 PKT Prov:RODNEY,JODY V. DIRECTOR EMERGENCY SERVICES 07/15/18 Docusate Sodium* (Colace*) 100 Mg Capsule, 200 MG PO DAILY, #60 CAP Prov:RODNEY,JODY V. DIRECTOR EMERGENCY SERVICES 07/15/18 Bumetanide* (Bumetanide*) 1 Mg Tablet, 0.5 MG PO DAILY, #30 TAB Prov:RODNEY,JODY V. DIRECTOR EMERGENCY SERVICES 07/15/18 Escitalopram Oxalate* (Escitalopram Oxalate*) 10 Mg Tablet, 5 MG PO DAILY, #30 TAB Prov:RODNEY,JODY V. DIRECTOR EMERGENCY SERVICES 07/15/18 Atorvastatin Calcium (Atorvastatin Calcium) 20 Mg Tablet, 20 MG PO HS, #30 TAB Prov:RODNEY,JODY V. DIRECTOR EMERGENCY SERVICES 07/15/18 Spironolactone* (Aldactone*) 25 Mg Tablet, 25 MG PO DAILY, #30 TAB Prov:RODNEYJESSICAJODY V. DIRECTOR EMERGENCY SERVICES 07/15/18 Metoclopramide* (Reglan*) 5 Mg Tablet, 5 MG PO TIDM A, #30 TAB Prov:RODNEYJESSICAJODY V. DIRECTOR EMERGENCY SERVICES 07/15/18 Dicyclomine HCl (Dicyclomine HCl) 10 Mg Capsule, 20 MG PO Q8 for 5 Days, #15 CAP Prov:RODNEYJESSICAJODY V. DIRECTOR EMERGENCY SERVICES 07/15/18 Fluconazole* (Diflucan*) 100 Mg Tablet, 100 MG PO DAILY for 5 Days, #5 TAB Prov:RODNEYJESSICAJODY V. DIRECTOR EMERGENCY SERVICES 07/15/18 [Work Note] No Conflict Check Please excuse Fish TinoIsreal attending work from 07/07/2018 to 07/18/2018 due to her medical condition. Thanks. Prov:RODNEYJESSICAJODYRASHARD Gibson NP 07/15/18 Follow-up Plan The patient being transferred to [facility] for further evaluation and management. Primary Care Provider Stephan Nuñez Time spent on discharge: > 30 minutes Pending Labs Laboratory Tests Test 10/08/18 05:45 10/08/18 05:46 White Blood Count 10.8 10^3/ul (4.8-10.8) Red Blood Count 4.74 10^6/ul (4.20-5.40) Hemoglobin 13.4 g/dl (12.0-16.0) Hematocrit 42.8 % (37.0-47.0) Mean Corpuscular Volume 90.3 fl (82.0-101.0) Mean Corpuscular Hemoglobin 28.3 pg (29.0-33.0) Mean Corpuscular 31.3 g/dl (32.0-37.0) Hemoglobin Concent Red Cell Distribution Width 15.5 % (11.5-14.5) Platelet Count 243 10^3/UL (140-415) Mean Platelet Volume 11.6 fl (7.4-10.4) Immature Granulocytes % 0.500 % (0.001-0.429) Neutrophils % 82.1 % (39.0-77.0) Lymphocytes % 7.9 % (15.0-51.0) Monocytes % 9.4 % (0.0-11.0) Eosinophils % 0.0 % (0.0-7.0) Basophils % 0.1 % (0.0-2.0) Nucleated Red Blood Cells % 0.0 /100WBC (0.0-0.0) Immature Granulocytes # 0.050 10^3/ul (0.0-0.031) Neutrophils # 8.9 10^3/ul (1.6-7.5) Lymphocytes # 0.9 10^3/ul (0.8-2.9) Monocytes # 1.0 10^3/ul (0.3-0.9) Eosinophils # 0.0 10^3/ul (0.0-0.5) Basophils # 0.0 10^3/ul (0.0-0.1) Nucleated Red Blood Cells # 0.0 10^3/ul (0.0-0.0) Prothrombin Time 14.6 Sec (11.9-14.9) Prothrombin Time Ratio 1.1 INR International 1.13 Normalized Ratio Activated Partial Thromboplast 29.2 Sec (23.0-35.0) Time Sodium Level 137 mmol/L (135-144) Potassium Level 5.1 mmol/L (3.5-5.1) Chloride Level 97 mmol/L (97-110) Carbon Dioxide Level 25 mmol/L (21-31) Anion Gap 15 (5-13) Blood Urea Nitrogen 45 mg/dl (7-20) Creatinine 2.09 mg/dl (0.44-1.00) Est Glomerular Filtrat 30 mL/min (>60) Rate mL/min Glucose Level 148 mg/dl (70-220) Hemoglobin A1c 5.1 % (0-5.9) Calcium Level 10.1 mg/dl (8.4-10.2) Total Bilirubin 2.5 mg/dl (0.2-1.3) Direct Bilirubin 0.00 mg/dl (0.00-0.20) Indirect Bilirubin 2.5 mg/dl (0-1.1) Aspartate Amino 48 IU/L (15-46) Transf (AST/SGOT) Alanine 23 IU/L (13-69) Aminotransferase (ALT/SGPT) Alkaline Phosphatase 93 IU/L (42-121) Total Protein 8.2 g/dl (6.1-8.1) Albumin 4.7 g/dl (3.3-4.9) Globulin 3.50 g/dl (1.3-3.2) Albumin/Globulin Ratio 1.34 Phosphorus Level 5.2 mg/dl (2.5-4.9) Magnesium Level 2.1 mg/dl (1.7-2.5) Triglycerides Level 119 mg/dl (0-149) Cholesterol Level 184 mg/dl (100-200) LDL Cholesterol, Calculated 113 mg/dl HDL Cholesterol 47 mg/dl (37-92) Cholesterol/HDL Ratio 3.9 RATIO GERARDO JOHN NP Oct 08, 2018 11:35
[2018-10-08] MEDS ORDERED: BACLOFEN 10 MG TAB PO SCH (13:00)
--- NOTE | 2018-10-08 13:03 | CONS ---
Assessment/Plan Cardiology NYHA: III Heart Failure Type: Acute on Chronic Heart Failure Type: Systolic Assessment/Plan Hospital Course (Demo Recall) Abdominal pain and nausea Acute decompensated systolic congestive heart failure Severe nonischemic cardia myopathy Pulmonary hypertension Chronic kidney disease History of biventricular pacemaker/ICD Still complaining of abdominal pain, nausea. Spoke to GI, to be seen today. Does have history of Janette esophagitis Spoke to [facility] cardiac transplant physician Dr. Valerio, given recurrent admissions with decompensated condition of heart failure and progressive worsening decline, plans of transfer to [facility] for further transplant evaluation Continue beta-blockers heart rate and blood pressure permits If renal function improves and blood pressure remained stable, restart Entresto Diuretics as per nephrology Consultation Date/Type/Reason Admit Date/Time Oct 07, 2018 at 13:07 Initial Consult Date Type of Consult Cardiology Date/Time of Note DATE: 10/08/18 TIME: 13:01 24 HR Interval Summary Free Text/Dictation Feeling nauseous, abdominal pain, intermittent shortness of breath Exam/Review of Systems Vital Signs Vitals Vital Signs Date Temp Pulse Resp B/P (MAP) Pulse Ox O2 O2 Flow FiO2 Time Delivery Rate 10/08/18 97.8 92 22 121/76 96 Room Air 11:16 (91) 10/08/18 2.0 07:17 Intake and Output 10/07/18 10/07/18 10/08/18 1515:00 23:00 07:00 IntakeIntake Total 200 ml BalanceBalance 200 ml Exam Constitutional: alert, oriented (Appears uncomfortable, complaining of abdominal pain) Head: normocephalic Respiratory: other (Coarse breath sounds bilaterally, no wheezing) Cardiovascular: regular rate and rhythm (S1-S2 heard) Gastrointestinal: soft, bowel sounds, tender Extremities: edema (Trace) Labs Result Diagram: 10/08/18 0545 10/08/18 0545 Results 24hrs Laboratory Tests Test 10/08/18 05:45 10/08/18 05:46 White Blood Count 10.8 Red Blood Count 4.74 Hemoglobin 13.4 Hematocrit 42.8 Mean Corpuscular Volume 90.3 Mean Corpuscular Hemoglobin 28.3 L Mean Corpuscular Hemoglobin Concent 31.3 L Red Cell Distribution Width 15.5 H Platelet Count 243 Mean Platelet Volume 11.6 H Immature Granulocytes % 0.500 H Neutrophils % 82.1 H Lymphocytes % 7.9 L Monocytes % 9.4 Eosinophils % 0.0 Basophils % 0.1 Nucleated Red Blood Cells % 0.0 Immature Granulocytes # 0.050 H Neutrophils # 8.9 H Lymphocytes # 0.9 Monocytes # 1.0 H Eosinophils # 0.0 Basophils # 0.0 Nucleated Red Blood Cells # 0.0 Prothrombin Time 14.6 Prothrombin Time Ratio 1.1 INR International Normalized Ratio 1.13 Activated Partial Thromboplast Time 29.2 Sodium Level 137 Potassium Level 5.1 Chloride Level 97 Carbon Dioxide Level 25 Anion Gap 15 H Blood Urea Nitrogen 45 #H Creatinine 2.09 H Est Glomerular Filtrat Rate mL/min 30 L Glucose Level 148 Hemoglobin A1c 5.1 Calcium Level 10.1 Total Bilirubin 2.5 H Direct Bilirubin 0.00 Indirect Bilirubin 2.5 H Aspartate Amino Transf (AST/SGOT) 48 H Alanine Aminotransferase (ALT/SGPT) 23 Alkaline Phosphatase 93 Total Protein 8.2 H Albumin 4.7 Globulin 3.50 H Albumin/Globulin Ratio 1.34 Phosphorus Level 5.2 H Magnesium Level 2.1 Triglycerides Level 119 Cholesterol Level 184 LDL Cholesterol, Calculated 113 HDL Cholesterol 47 Cholesterol/HDL Ratio 3.9 Medications Medications Current Medications Acetaminophen (Tylenol Tab) 650 mg ER BRIDGE PRN PO .MILD PAIN 1-3 OR TEMP; Start 10/07/18 at 13:30; Stop 10/08/18 at 13:29 Aspirin (Halfprin) 81 mg DAILY PO Last administered on 10/08/18at 08:41; Admin Dose 81 MG; Start 10/08/18 at 09:00 Bumetanide (Bumex) 2 mg BID DIURETICS PO Last administered on 10/08/18at 05:57; Admin Dose 2 MG; Start 10/07/18 at 18:00 Carvedilol (Coreg) 3.125 mg BID PO Last administered on 10/08/18 08:41; Admin Dose 3.125 MG; Start 10/07/18 at 21:00 Lorazepam (Ativan) 0.5 mg BID PRN PO ANXIETY Last administered on 10/08/18at 02:35; Admin Dose 0.5 MG; Start 10/07/18 at 14:00 Spironolactone (Aldactone) 12.5 mg DAILY PO Last administered on 10/08/18at 08:42; Admin Dose 12.5 MG; Start 10/08/18 at 09:00 Pantoprazole (Protonix Tab) 40 mg BID@06,18 PO Last administered on 10/08/18 05:58; Admin Dose 40 MG; Start 10/07/18 at 18:00 IV Flush (NS 3 ml) 3 ml PER PROTOCOL IV ; Start 10/07/18 at 14:30 Ondansetron HCl (Zofran Inj) 4 mg Q6H PRN IV NAUSEA/VOMITING Last administered on 10/08/18at 05:57; Admin Dose 4 MG; Start 10/07/18 at 14:30 Acetaminophen (Tylenol Tab) 650 mg Q6H PRN PO .PAIN 1-3 OR TEMP; Start 10/07/18 at 14:30 Acetaminophen/ Hydrocodone Bitart ([place] (5/325)) 1 tab Q6H PRN PO .MOD PAIN 4- 6 Last administered on 10/08/18 08:48; Admin Dose 1 TAB; Start 10/07/18 at 14:30 Morphine Sulfate (morphine) 2 mg Q4H PRN IV .SEVERE PAIN 7-10 Last administered on 10/08/18at 06:13; Admin Dose 2 MG; Start 10/07/18 at 14:30 Heparin Sodium (Porcine) (Heparin (5000 Units/1ml)) 5,000 unit Q12 SC Last administered on 10/08/18 08:46; Admin Dose 5,000 UNIT; Start 10/07/18 at 21:00 Polyethylene Glycol (Miralax) 17 gm BID PO Last administered on 10/08/18 08:48; Admin Dose 17 GM; Start 10/07/18 at 21:00 Lubiprostone (Amitiza) 24 mcg BID PO ; Start 10/08/18 at 21:00 Dicyclomine HCl (Bentyl) 20 mg Q8 PO ; Start 10/08/18 at 14:00 Baclofen (Lioresal) 5 mg TID PO ; Start 10/08/18 at 13:00 Gwyn Paris DO Oct 08, 2018 13:03
[2018-10-08] MEDS ORDERED: DICYCLOMINE 10 MG CAP PO SCH (14:00)
[2018-10-08 15:22] VITALS: BP 120/80; PULSE 89; RESP 22
[2018-10-08] MEDS ORDERED: BUMETANIDE 1 MG TAB PO SCH (18:00)
[2018-10-08 19:15] VITALS: BP 129/84; PULSE 90; RESP 17
[2018-10-08] MEDS ORDERED: LUBIPROSTONE 24 MCG CAP PO SCH (21:00)
[2018-10-09] MEDS ORDERED: BUMETANIDE 1 MG TAB PO SCH (09:00)
== END 2018-10-08 20:00 | disposition other institution (70) ==
LOC: E/R 10:18 → PP2 13:07 → TEL 20:57
PROVIDERS: ADMIT Internal Medicine; ATTEND Internal Medicine
DX: R10.13 Epigastric pain (principal); I13.0 Hypertensive heart and chronic kidney disease with heart failure and stage 1 through stage 4 chronic kidney disease, or unspecified chronic kidney disease; I50.23 Acute on chronic systolic (congestive) heart failure; N18.3 Chronic kidney disease, stage 3 (moderate); N17.9 Acute kidney failure, unspecified; I27.20 Pulmonary hypertension, unspecified; I42.9 Cardiomyopathy, unspecified; Z95.810 Presence of automatic (implantable) cardiac defibrillator; I25.10 Atherosclerotic heart disease of native coronary artery without angina pectoris; F41.9 Anxiety disorder, unspecified; E66.9 Obesity, unspecified; Z68.33 Body mass index [BMI] 33.0-33.9, adult; E80.4 Gilbert syndrome; K56.41 Fecal impaction; K76.0 Fatty (change of) liver, not elsewhere classified; R25.2 Cramp and spasm; D64.9 Anemia, unspecified; M89.9 Disorder of bone, unspecified; E78.5 Hyperlipidemia, unspecified; Z79.82 Long term (current) use of aspirin
CPT/HCPCS: 36415; 71045; 74176; 76705; 80053; 80061; 83036; 83690; 83735; 84100; 84484; 85025; 85610; 85730; 93005; 96374; 96375; 99285; G0378; J1644; J2270; J2405; 99217